=== PATIENT | male | born 1965 ===

== ENCOUNTER 2020-09-21 13:53 | Outpatient (REF) | payer OTHER, SELFPAY ==
--- NOTE | ~2020-09-21 | XR_ITS ---
EXAMINATION: BILATERAL KNEE X-RAY CLINICAL INFORMATION: Pain COMPARISON: None TECHNIQUE: Standing AP view of both knees and lateral and sunrise view of the left knee FINDINGS: Left: Bone alignment is normal. No fracture or dislocation is seen. The joint spaces are normal. There is no joint effusion. Standing AP view of the right knee demonstrates medial femoral tibial joint space narrowing and mild varus angulation. XR/XR knee standing BI IMPRESSION: Normal left knee. Medial femoral tibial joint space narrowing and mild varus angulation of the right knee.
--- NOTE | ~2020-09-21 | XR_ITS ---
EXAMINATION: BILATERAL KNEE X-RAY CLINICAL INFORMATION: Pain COMPARISON: None TECHNIQUE: Standing AP view of both knees and lateral and sunrise view of the left knee FINDINGS: Left: Bone alignment is normal. No fracture or dislocation is seen. The joint spaces are normal. There is no joint effusion. Standing AP view of the right knee demonstrates medial femoral tibial joint space narrowing and mild varus angulation. XR/XR knee LT 2V IMPRESSION: Normal left knee. Medial femoral tibial joint space narrowing and mild varus angulation of the right knee.
== END 2020-09-21 13:54 | disposition home or self-care (01) ==
LOC: HO.HOSX 13:53
PROVIDERS: PCP Internal Medicine; Visit Provider Orthopaedic Surgery
DX: M23.92 Unspecified internal derangement of left knee (principal); M25.562 Pain in left knee
CPT/HCPCS: 73560; 73565

== ENCOUNTER 2020-09-24 17:51 | Outpatient (REF) | payer OTHER, SELFPAY ==
--- NOTE | ~2020-09-24 | MR_ITS ---
EXAMINATION: MR KNEE WITHOUT CONTRAST, LEFT CLINICAL INFORMATION: Unspecified internal derangement of left knee. COMPARISON: Radiographs dated 09/21/2020. TECHNIQUE: MRI of the knee without contrast was performed using routine sequences on a high-field scanner. FINDINGS: MENISCI: Medial Meniscus: A horizontal tear is present at the posterior horn and body, contacting the meniscal undersurface near the free edge margin. As seen on image / of series 5, there is a flap of meniscal tissue at the undersurface of the meniscal body which is displaced into the meniscotibial recess. This measures approximately 1.7 cm AP and 0.6 cm longitudinal. There is an overlying multilocular parameniscal cyst measuring 2.8 x 0.6 x 1.4 cm. Surrounding soft tissues are edematous. A small multilocular parameniscal cyst is also present along the posterior capsular margin. Lateral Meniscus: Intact. LIGAMENTS: Cruciate: Intact. Collateral: Intact. EXTENSOR MECHANISM: Intact. ARTICULAR CARTILAGE/BONE: Patellofemoral Compartment: At the lateral trochlear facet, there is a chronic osteochondral injury measuring 1.4 x 1.8 cm in area, characterized by partial-thickness articular cartilage loss, full-thickness chondral fissuring, and underlying articular cortical remodeling with slight articular cortical depression. No large chondral defects are identified. Patellar cartilage appears relatively well preserved. Medial Compartment: Mild partial-thickness chondral thinning is present at the medial tibial plateau. Small marginal osteophytes. Lateral Compartment: Focal partial-thickness cartilage loss is present at the posterior third of the lateral tibial plateau with full-thickness chondral fissuring. JOINT FLUID AND BURSAE: Trace joint effusion. No Mcconnell's cyst. MR/MR knee LT wo con IMPRESSION: 1. A horizontal tear of the posterior horn and body of the medial meniscus extends to the meniscal undersurface. There is partial extrusion of the meniscal body with a displaced undersurface flap fragment and surrounding parameniscal cysts. 2. Mild tricompartmental osteoarthritis. Focal chronic osteochondral injury at the lateral trochlear facet. 3. Trace joint effusion.
== END 2020-09-24 17:52 | disposition home or self-care (01) ==
LOC: HO.MRI 17:51
PROVIDERS: Visit Provider Orthopaedic Surgery
DX: M23.92 Unspecified internal derangement of left knee (principal)
CPT/HCPCS: 73721

== ENCOUNTER → 2020-10-01 12:15 | Outpatient (BNVA) | payer OTHER, SELFPAY | PROVIDERS: PCP Internal Medicine; Visit Provider Orthopaedic Surgery ==

== ENCOUNTER 2020-10-07 06:10 | Day surgery (SDC) | payer OTHER, SELFPAY ==
--- NOTE | 2020-10-06 10:49 | HO.ANESPROP2 ---
Documented by User: Shalonda Mclaughlin 10/06/20 10:53 HPI - Anesthesia Eval Consult details Narrative: 54yo M for Left Knee Arthroscopy PMFSH Active Problems Active Problems: All Active Problems (Updated 09/21/20 @ 14:53 by Constantine Fritz MD) Internal derangement of left knee (Acute) Past Medical History Medical History Anxiety and depression Diabetes HLD (hyperlipidemia) HTN (hypertension) Internal derangement of left knee Social History Social History Use of substances other than those prescribed or required for medical reasons: No Have you been hit, kicked, punched, or otherwise hurt by someone within the past year? 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 Allergies Allergy/AdvReac Type Severity Reaction Status Date / Time No Known Allergies Allergy Unverified 02/13/20 15:44 [No Known Allergies*] seasonal Allergy Unknown Uncoded 07/25/17 00:00 Home Medications Medication Instructions Recorded Confirmed Last Taken Type Novolog U-100 Insulin aspart 10/07/20 Unknown History Trulicity 10/07/20 Unknown History aspirin 10/07/20 10/02/20 History atorvastatin 10/07/20 Unknown History lisinopril 10/07/20 Unknown History metformin 10/07/20 10/06/20 History sertraline 10/07/20 Unknown History Exam Exam Date and Time: October 06, 2020 1049 Narrative Narrative: w/u for CP 2018: EKG, ECHO, and CTA normal Assessment and Plan Assessment Anesthesia Assessment: Chart Reviewed Documented by User: Francisco Javier Valverde 10/07/20 07:23 PMFSH Past Medical History Medical History Anxiety and depression Diabetes HLD (hyperlipidemia) HTN (hypertension) Internal derangement of left knee Social History Social History Use of substances other than those prescribed or required for medical reasons: No Have you been hit, kicked, punched, or otherwise hurt by someone within the past year? 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
[2020-10-07] VITALS (7 sets, daily range): BP systolic 131–169; BP diastolic 80–95; PULSE 78–90; RESP 12–20; TEMP 36.2–36.6; O2SAT 93–99; BMI 30.8
[2020-10-07 06:22] LABS: Glucose, Whole Blood 177 mg/dL (60-115)
[2020-10-07] MEDS: Lactated Ringers 1,000 ML 100 ML IVCONT (06:35)
--- NOTE | 2020-10-07 06:43 | PC.NURSE ---
cough noted ls clear. pts sts allergies no temp denies any covid s/sx pwd vss
--- NOTE | 2020-10-07 08:44 | P.BOP_ITS ---
Brief Operative Note Date of Service: 10/07/20 Pre-op diagnosis: left knee medial meniscus tear Post-op diagnosis: same Procedure: left knee partial medial meniscectomy Implants: none Surgeon: Constantine Fritz MD Anesthesia: GETA and local Was an Industrial Fabric Cutter used for this Procedure?: No Estimated blood loss (mL): 2 Tourniquet time (min): 25 Pathology: none sent Condition: stable Disposition: PACU
--- NOTE | 2020-10-07 08:49 | P.OP_ITS ---
Operative Note Operative Note Date of Service: 10/07/20 Narrative: Pre-op diagnosis: left knee medial meniscus tear Post-op diagnosis: same Procedure: left knee partial medial meniscectomy Implants: none Surgeon: Constantine Fritz MD Anesthesia: GETA and local Was an Day Care Aide used for this Procedure?: No Estimated blood loss (mL): 2 Tourniquet time (min): 25 Pathology: none sent Condition: stable Disposition: PACU Procedure in detail: Patient was brought to the operating room placed supine on the arthroscopic table and prepped and draped in standard sterile fashion. A time-out was called to identify proper site proper procedure proper surgeon and IV antibiotics per weight were administered. I began by exsanguinating the limb and insufflating tourniquet to 300 mm Hg. Then made a standard anterolateral stab incision. The knee was insufflated with water and 30 degree arthroscope was placed. There was grade 2 changes of the central patellar facet of the patella but overall suprapatellar pouch was clean and the gutters were clean. I descended into the medial compartment where I made my medial portal under direct visualization. There was obvious of complex tear of the body and posterior horn of the medial meniscus. Root was intact and there were grade 1 changes scattered throughout the medial compartment. I used a combination of biter shaver and cautery to remove unstable portions of the meniscus. Approximately 40% of the meniscal volume was removed. Once I was satisfied with this , the ACL was examined and found to be intact and the lateral compartment was clean. I then removed all instrumentation and closed the portals with skin glue. 25 mL of 2% Marcaine with epinephrine was injected into the joint and the surrounding soft tissues. Patient was then placed in sterile dressing extubated brought recovery room stable condition. There were no known complications.
[2020-10-07] MEDS: HYDROcodone Bit/Acetam 5/325 TABLET 1 TAB PO (09:48)
== END 2020-10-07 10:13 | disposition home or self-care (01) ==
PROVIDERS: Visit Provider Orthopaedic Surgery
PROC: (CPT 29870; principal; 2020-10-07 07:30)
DX: S83.232A Complex tear of medial meniscus, current injury, left knee, initial encounter (principal); X58.XXXA Exposure to other specified factors, initial encounter; Y93.9 Activity, unspecified; Y92.9 Unspecified place or not applicable; Y99.8 Other external cause status; M17.12 Unilateral primary osteoarthritis, left knee
CPT/HCPCS: 29881; 82947; J0171; J0690; J1100; J2250; J2405; J3010

== ENCOUNTER → 2020-10-14 13:11 | Outpatient (BNVA) | payer OTHER, SELFPAY | PROVIDERS: Visit Provider Physician Assistant ==

== ENCOUNTER → 2020-10-19 13:45 | Outpatient (BNVA) | payer OTHER, SELFPAY | PROVIDERS: Visit Provider Orthopaedic Surgery | DX: S83.242D Other tear of medial meniscus, current injury, left knee, subsequent encounter (principal); M17.11 Unilateral primary osteoarthritis, right knee | CPT/HCPCS: 20610; J1100 ==

== ENCOUNTER → 2021-02-05 09:38 | Outpatient (BNVA) | payer OTHER, SELFPAY | PROVIDERS: Visit Provider Orthopaedic Surgery | DX: M17.11 Unilateral primary osteoarthritis, right knee (principal) | CPT/HCPCS: 20610; J1100 ==

== ENCOUNTER 2022-03-26 13:24 | Emergency (ER) | payer OTHER, SELFPAY ==
[2022-03-26 13:27] VITALS: BP 171/85; PULSE 87; RESP 18; TEMP 36.7; O2SAT 99; BMI 29.6
--- NOTE | 2022-03-26 14:07 | ED.GENADULT ---
HPI - General Adult General Chief complaint: Wound/Laceration Stated complaint: L THUMB LACERATION Time Seen by Provider: 03/26/22 14:07 Source: patient Mode of arrival: ambulatory Limitations: no limitations History of Present Illness HPI narrative: Patient is a 56 year old assigned male at with a history of type 2 diabetes presenting to the emergency department today with a left thumb laceration. Patient states that he was using a table saw when he cut his left thumb. Patient denies any numbness, tingling, dizziness, lightheadedness, abdominal pain, nausea, vomiting, fever, chills, blurry vision, double vision, loss of vision, chest pain, difficulty breathing, shortness of breath, back pain, night sweats, pain with urination, increased urinary frequency, increased urinary urgency, blood in his urine or stool, syncope or a near syncopal episode, bowel incontinence, bladder incontinence, bowel retention, bladder retention, or any other complaints at this time. Onset (ago): minute(s) Location: left (thumb) Radiation: non-radiation Severity: mild Severity scale (1-10): 3 Quality: dull Pain Consistency: constant Relieving factors: none Exacerbating factors: none Associated symptoms: denies other symptoms Treatments prior to arrival: none Related Data Home Medications Medication Instructions Recorded Confirmed Novolog U-100 Insulin aspart 10/07/20 Trulicity 10/07/20 aspirin 10/07/20 atorvastatin 10/07/20 lisinopril 10/07/20 metformin 10/07/20 sertraline 10/07/20 Previous Rx's Medication Instructions Recorded hydrocodone 5 mg-acetaminophen 325 1 tab PO Q8H PRN pain (scale score 10/07/20 mg tablet 4-6) 7 days #20 tabs celecoxib 200 mg capsule (Celebrex) 200 mg PO BID 30 days #60 caps 10/14/20 silver sulfadiazine 1 % topical 1 appl topical BID PRN wound 10/14/20 cream (Silvadene) healing #20 grams cephalexin 500 mg capsule 500 mg PO Q6H 7 days #28 caps 03/26/22 Allergies Allergy/AdvReac Type Severity Reaction Status Date / Time seasonal Allergy Unknown watery eyes Uncoded 10/19/20 13:56 Review of Systems Constitutional: Constitutional: Reports no additional constitutional complaints, Denies chills, Denies fever(s) and Denies night sweats Eyes: Eyes: Reports no additional eye complaints, Denies blurry vision, Denies change in vision, Denies diplopia, Denies eye discharge, Denies loss of vision and Denies eye pain ENT: Denies dizziness Cardiovascular: Cardiovascular: Reports no additional cardiovascular complaints, Denies chest pain, Denies lightheadedness, Denies Loss of Consciousness and Denies dyspnea Respiratory: Respiratory: Reports no additional respiratory complaints and Denies dyspnea Gastrointestinal: Gastrointestinal: Reports no additional gastrointestinal complaints, Denies abdominal pain, Denies melena, Denies hematochezia, Denies change in bowel habits and Denies change in stool character Genitourinary: Genitourinary: Reports no additional male genitourinary complaints, Denies hematuria, Denies oliguria, Denies difficulty urinating, Denies dysuria, Denies urinary frequency, Denies urinary hesitancy, Denies urinary incontinence and Denies urinary urgency Musculoskeletal: Musculoskeletal: Reports no additional musculoskeletal complaints, Denies numbness and Denies tingling Comments: left thumb injury Neurologic: Denies dizziness, Denies loss of vision, Denies numbness and Denies tingling Psychiatric: Psychiatric: Reports no additional psychiatric complaints Endocrine: Endocrine: Reports no additional endocrine complaints Hematologic/Lymphatic: Hematologic/Lymphatic: Reports no additional hematologic/lymphatic complaints Allergic/Immunologic: Allergic/Immunologic: Reports no additional allergic/immunologic complaints PMFSH Past Medical History Attestation statement: The following information was validated with the patient. 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 Physical Exam ED Vital Signs: Vital Signs - 24 hr 03/26/22 13:27 Temperature 98.1 F Pulse Rate 87 Respiratory Rate 18 Blood Pressure 171/85 H Pulse Oximetry 99 Oxygen Delivery Method Room Air BMI result Body Mass Index 29.6 Const General: cooperative, no acute distress, alert and awake Nutritional Appearance: well nourished Orientation/consciousness: patient oriented x3 Limitations: no limitations HENMT Head: Yes normal to inspection and Yes atraumatic Ears: hearing grossly normal bilaterally and external ears normal General nose exam: Normal external nose present, no nasal discharge noted and no epistaxis Face and sinus: Yes normal facial exam, No abrasion and No laceration Mouth: Normal oral and palatal mucosa present, no drooling and no muffled voice Eyes General: appearance normal, both eyes and all related structures Periorbital: periorbital findings normal Eyelids: Yes eyelids normal Conjunctivae: conjunctivae normal Pupils: Equal, round and reactive pupils present EOM: EOMs intact bilaterally Neck Neck: Yes normal visual inspection, Yes full ROM and Yes no lymphadenopathy Chest Chest palpation & inspection: normal inspection of the chest Resp Effort & Inspection: normal respiratory effort and able to speak in complete sentences Auscultation: clear to auscultation bilaterally Cardio Rate: regular rate Rhythm: regular rhythm GI Inspection: Yes normal to inspection Skin Other: 3cm irregular laceration to the palmar aspect of the left thumb, no active bleeding Neuro General: patient oriented x3 and moves all extremities Cranial nerves: Yes Equal, round and reactive pupils present Cognition (Neuro): normal cognition Motor exam (neuro): 5/5 motor strength present throughout Sensory Exam: Normal double simultaneous stimulation for sensation Coordination: [id number] test normal Extrem General: Yes full ROM and Yes capillary refill normal Psych Appearance: grossly normal Mental Status: mental status grossly normal Affect: normal affect Attitude: cooperative Thought process: Normal thought process present Thought content: Normal thought content present Insight: Good insight present (Psych) Procedures Laceration Laceration 1: Site: other (thumb) Side (If applicable): left Size (cm): 3 Description: flap and irregular Depth: simple, single layer Local Anesthetic: lidocaine 1% Amount of anesthesia used (mL): 2 Pre-repair: wound explored, irrigated extensively and deep structures intact Skin layer closed with: other (prolene) Size (cm): 5-0 Number of sutures: 3 Technique: simple, interrupted Medical Decision Making [facility] Narrative Medical decision making narrative: Patient is a 56 year old assigned male at with a history of type 2 diabetes presenting to the emergency department today with a left thumb laceration. Patient's physical exam showed a 3cm irregular / flap like laceration to the left palmar thumb, no active bleeding. I explained my physical exam findings to the patient . I answered all questions asked by the patient. Patient's left thumb was repaired, per procedure note, without incident. I stressed the importance of the patient taking his medication as prescribed. I stressed the importance of the patient following up with his primary care provider. I stressed the importance of not getting the affected area wet for 7 days, not soaking the affected area, performing daily wound checks and daily dressing changes, and having his sutures removed in 10-14 days. I stressed the importance of the patient returning to the emergency department immediately if his symptoms were to worsen or if he were to develop any dizziness, shortness of breath, difficulty breathing, chest pain, blurry vision, loss of vision, nausea, vomiting, abdominal pain, fever, chills, back pain, or any other complaints. Patient verbalized agreement and understanding with this treatment plan and discharge. Medical Records Medical records reviewed: Yes I reviewed the patient's medical records. Discharge Plan Discharge Clinical Impression: Laceration Patient Disposition: Home, Self-Care Instructions: Laceration (ED) Additional Instructions: Do NOT get the affected area wet for at LEAST 7 days. Do NOT soak the sutured area. Have your sutures removed in 10-14 days. Perform daily wound checks. Follow up with your primary care provider. Return to the emergency department immediately if your symptoms worsen or if you develop any dizziness, shortness of breath, difficulty breathing, chest pain, blurry vision, loss of vision, nausea, vomiting, abdominal pain, fever, chills, back pain, or any other complaints. Prescriptions: New cephalexin 500 mg capsule 500 mg PO Q6H 7 Days Qty: 28 0RF No Action aspirin atorvastatin lisinopril metformin sertraline Novolog U-100 Insulin aspart Trulicity hydrocodone-acetaminophen 5-325 mg tablet 1 tab PO Q8H PRN (Reason: pain (scale score 4-6)) 7 Days Qty: 20 0RF celecoxib [Celebrex] 200 mg capsule 200 mg PO BID 30 Days Qty: 60 3RF silver sulfadiazine [Silvadene] 1 % cream 1 appl topical BID PRN (Reason: wound healing) Qty: 20 1RF Rx Instructions: apply a 1.5 mm thickness Referrals: [facility] [place] Family Medicine [Provider Group] (Call to establish and follow up with a primary care provider. If you already have a primary care provider, please follow up with them. ) [facility] [Provider Group] (Call to establish and follow up with a primary care provider. If you already have a primary care provider, please follow up with them. ) [facility] [Provider Group] (Call to establish and follow up with a primary care provider. If you already have a primary care provider, please follow up with them. ) Interventions: ED Discharge Assessment Last Done: 03/26/22 14:57 Discharge Date/Time: 03/26/22 14:57 Print Language: Swazi
--- NOTE | 2022-03-26 14:16 | PC.NURSE ---
Provider instructed to override Lidocaine. Administered by provider.
== END 2022-03-26 14:57 | disposition home or self-care (01) ==
PROVIDERS: Emergency Provider Emergency Medicine
DX: S61.012A Laceration without foreign body of left thumb without damage to nail, initial encounter (principal); W29.8XXA Contact with other powered hand tools and household machinery, initial encounter; Y93.9 Activity, unspecified; Y92.9 Unspecified place or not applicable; Y99.9 Unspecified external cause status
CPT/HCPCS: 12002; 99282; 99284

== ENCOUNTER 2023-08-28 08:41 | Outpatient (AMB) | payer OTHER, SELFPAY ==
--- NOTE | 2023-08-28 08:47 | A.OFFVIS_ITS ---
Intake Vital Signs 08/28/23 09:06 Height 6 ft 3 in Weight 205 lb BMI 25.6 Intake Visit Reasons: O/V bilatel knee O.A s/p rt knee inj 02/05/21 Intake Note: Jeff is a 53 year old male who presents today for a follow up of his bilateral knee OA. He was last seen on 02/05/21 where his right knee was injected. He states that his last injection gave him no relief. He would like to discuss other possible treatments today including a brace. He has had no previous treatment for his left knee, right knee is worse than left knee. Allergies seasonal Allergy (Unknown, Uncoded 07/28/22 09:44) watery eyes HPI O/V bilatel knee O.A s/p rt knee inj 02/05/21 HPI Details Jeff is a 53 year old male who presents today for a follow up of his bilateral knee OA. He was last seen on 02/05/21 where his right knee was injected. He states that his last injection gave him no relief. He would like to discuss other possible treatments today including a brace. He has had no previous treatment for his left knee, right knee is worse than left knee. He is very active in the summer as he goes camping with his and they have a camper and travel over the country and he is opposed to any surgical and vent intervention until next fall. He has had a knee brace in the past which was helpful but so what he currently has is not helpful. Most of his pain is on the inside of the right knee. It bothers him when he walks his dog and when he gets into and out of his truck. 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 Moderate to severe medial compartment osteoarthritis right knee Mild osteoarthritis left knee Assessment & Plan Assessment & Plan (1) Arthritis of right knee: Code(s): M17.11 - Unilateral primary osteoarthritis, right knee Plan: Osteoarthritis of the right knee. We discussed treatment options. He is tried steroid injections in the past without benefit. I think the next appropriate step would be viscosupplementation. He is diabetic as well and wants to stay away from cortisone. (2) Varus deformity of knee: Code(s): M21.169 - Varus deformity, not elsewhere classified, unspecified knee Plan: Varus deformity right knee. I ordered an unloading brace for his right knee. We will see if this is helpful and he will follow-up after he has had this for approximately a month. Orders: Orders XR knee standing BI Today M25.569 - Pain in unspecified knee Coding Level of Care Code Est Pt Level 4 (63412) Diagnoses Arthritis of right knee M17.11 Varus deformity of knee M21.169
[2023-08-28 09:06] VITALS: BMI 25.6
== END 2023-08-28 09:51 | disposition home or self-care (01) ==
PROVIDERS: Visit Provider Orthopaedic Surgery
DX: M17.0 Bilateral primary osteoarthritis of knee (principal); M21.161 Varus deformity, not elsewhere classified, right knee
CPT/HCPCS: 99214

== ENCOUNTER 2023-08-28 11:08 | Outpatient (REF) | payer OTHER, SELFPAY ==
--- NOTE | ~2023-08-28 | XR_ITS ---
EXAMINATION: XR KNEE, RIGHT CLINICAL INFORMATION: Right knee pain COMPARISON: Right knee x-ray on 09/21/2020 TECHNIQUE: Standing frontal x-ray of bilateral knees, lateral and sunrise view x-rays of the right knee. FINDINGS: BONES: Bony structures are intact. There is no focal bone destruction or periosteal reaction seen. JOINTS: Alignment of joints is normal. There is complete loss of medial compartment right knee joint space. SOFT TISSUE: Soft tissue is unremarkable. No radiopaque foreign body or abnormal air collection is seen. XR/XR knee RT 3V IMPRESSION: 1. No acute fracture or dislocation is seen in the right knee. 2. Unchanged Severe degenerative changes in the medial compartment of the right knee.
--- NOTE | ~2023-08-28 | XR_ITS ---
EXAMINATION: XR KNEE, LEFT CLINICAL INFORMATION: Left knee pain COMPARISON: Left knee x-ray on 09/21/2020 TECHNIQUE: Standing frontal x-ray of bilateral knees, lateral and sunrise view x-rays of the left knee. FINDINGS: BONES: Bony structures are intact. There is no focal bone destruction or periosteal reaction seen. JOINTS: Alignment of joints is normal. There is marked decrease in medial compartment left knee joint space. SOFT TISSUE: Left suprapatellar fat pad shows increase in density. No radiopaque foreign body or abnormal air collection is seen. XR/XR knee LT 3V IMPRESSION: 1. Interval progression of Advanced medial compartment left tibiofemoral joint osteoarthritis. 2. Interval development of left knee effusion. 3. No fracture or dislocation or signs of osteomyelitis are found.
== END 2023-08-28 11:09 | disposition home or self-care (01) ==
LOC: HO.HOSX 11:08
PROVIDERS: Visit Provider Orthopaedic Surgery
DX: M17.11 Unilateral primary osteoarthritis, right knee (principal); M25.562 Pain in left knee
CPT/HCPCS: 73562; 99212

== ENCOUNTER 2023-09-23 14:55 | Emergency (ER) | payer OTHER, SELFPAY ==
--- NOTE | ~2023-09-23 | XR_ITS ---
EXAMINATION: XR HAND, LEFT CLINICAL INFORMATION: Pain. Injury. COMPARISON: None available. TECHNIQUE: PA, lateral, and oblique views of the left hand. FINDINGS: Soft tissue defects and swelling along the ulnar aspect of the 2nd and 3rd distal phalanges, consistent with lacerations. No radiopaque foreign body or abnormal soft tissue calcification. There are defects within the adjacent ulnar aspect of the distal 2nd and 3rd phalangeal nahun measuring up to 0.3 and 0.3 cm, consistent with fractures. No dislocation. Mild joint space narrowing with small marginal osteophytes at the 1st carpometacarpal and metacarpophalangeal joints. No concerning lytic or blastic osseous lesion. XR/XR hand LT min 3V IMPRESSION: 1. Soft tissue lacerations along the ulnar aspect of the 2nd and 3rd distal phalanges. No radiopaque foreign body or abnormal soft tissue calcification. 2. Associated fractures within the adjacent ulnar aspect of the distal 2nd and 3rd phalangeal nahun.
[2023-09-23 15:24] VITALS: BP 123/84; PULSE 91; RESP 16; TEMP 36.7; O2SAT 95; BMI 25.6
--- NOTE | 2023-09-23 15:36 | ED_ITS ---
HPI - General Adult General Chief complaint: Wound/Laceration Stated complaint: l index and mid finger laceration saw Time Seen by Provider: 09/23/23 16:19 Source: patient Mode of arrival: ambulatory Limitations: no limitations History of Present Illness HPI narrative: Patient is a 57-year-old male right Hand dominant who presents emergency department for evaluation of lacerations to the distal tip of the left 2nd and 3rd digit, accidental in nature from a table saw. Bleeding controlled prior to arrival. Reports that he is up-to-date on his last tetanus vaccination within the past 5 years. Denies any numbness tingling or cold sensation to the hands. Is able to flex and extend the digits. Related Data Home Medications ?Medication ?Instructions ?Recorded ?Confirmed aspirin 81 mg tablet,delayed 81 mg PO DAILY 05/28/22 07/28/22 release (Adult Low Dose Aspirin) atorvastatin 80 mg tablet 80 mg PO DAILY 05/28/22 07/28/22 empagliflozin 10 mg tablet 10 mg PO DAILY 05/28/22 07/28/22 hydrochlorothiazide 12.5 mg tablet 12.5 mg PO DAILY 05/28/22 07/28/22 lisinopril 5 mg tablet 5 mg PO DAILY 05/28/22 07/28/22 semaglutide 1 mg/dose (2 mg/1.5 1 mg subcut QWEEK 05/28/22 07/28/22 mL) subcutaneous pen injector bupropion HCl 150 mg 24 hr tablet, 150 mg PO QAM 08/28/23 extended release loratadine 10 mg tablet (Allergy 10 mg PO DAILY 08/28/23 Relief (loratadine)) metformin 500 mg tablet 1,000 mg PO DAILY 08/28/23 Previous Rx's ?Medication ?Instructions ?Recorded Medial unloading brace, right #1 ea 09/05/23 amoxicillin 875 mg-potassium 1 tab PO BID #14 tabs 09/23/23 clavulanate 125 mg tablet Allergies Allergy/AdvReac Type Severity Reaction Status Date / Time No Known Allergies Allergy Verified 09/23/23 15:28 Review of Systems 2 Review of Systems: Yes all other systems are reviewed and are negative PMFSH Past Medical History Attestation statement: The following information was validated with the patient. 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 No acute distress.?Normal affect. Neck: Normal inspection.? Neck supple.?? CVS: Heart sounds normal. Normal heart rate and rhythm.? Pulses normal.?? Respiratory: No respiratory distress.? Lung sounds clear to auscultation bilaterally?? Skin: Skin warm and dry.? Normal skin color.? .?? Extremities: full range of motion to digits of the left hand Neuro: Moves all extremities spontaneously. Sensation intact bilaterally. Ambulates with normal steady gait. Course Course Course Narrative: RME performed by Angie Waddell PA-C. Patient is a 57 year old assigned male at presenting to the emergency department with a left 2nd and 3rd finger table saw injury. Detailed physical exam and review of systems are deferred to the child care lead teacher. Imaging ordered. Patient placed back in the waiting room pending room availability and results. 182 --> I repaired the patient's 2nd and 3rd left digit lacerations. 2 sutures were placed in the 2nd digit laceration and 1 in the right 3rd digit laceration. Patient tolerated the procedure well. Patient's PMS was intact prior to and after laceration repairs. I splinted the patient's right 2nd and 3rd digits, without incident. Patient's PMS was intact prior to and after splint placement. Medications Administered Discontinued Medications Generic Name Dose Route Start Last Admin Trade Name Freq PRN Reason Stop Dose Admin Cefazolin Sodium/Dextrose 2 gm in 50 mls @ 100 mls/hr 09/23/23 17:02 09/23/23 18:08 Ancef IV 09/23/23 17:31 Infused ONCE ONE Infusion Lidocaine HCl 10 ml 09/23/23 17:17 09/23/23 17:40 Lidocaine Hcl 1 % 10 Ml Vial SUBCUT 09/23/23 17:18 10 ml ONCE ONE Administration Procedures Laceration Laceration 1: Site: other (2nd digit) Side (If applicable): left Description: irregular Depth: simple, single layer Local Anesthetic: lidocaine 1% Amount of anesthesia used (mL): 5 Pre-repair: wound explored, irrigated extensively, deep structures intact and wound margins revised Skin layer closed with: other (prolene) Size (cm): 6-0 Number of sutures: 2 Technique: simple, interrupted Laceration 2: Site: other (3rd digit) Side (If applicable): right Description: irregular Depth: simple, single layer Local Anesthetic: lidocaine 1% Amount of anesthesia used (mL): 5 Pre-repair: wound explored, irrigated extensively, deep structures intact and wound margins revised Skin layer closed with: other (proelene) Size (cm): 5-0 Number of sutures: 1 Technique: simple, interrupted Nerve Block Nerve Block 1: Time out performed: Yes Local Anesthetic: lidocaine 1% Amount of anesthesia used (mL): 5 Side: left Nerve Blocks: digital (2nd digit) Procedure Successful: Yes Patient Tolerated Procedure: well Complications: none Nerve Block 2: Time out performed: Yes Local Anesthetic: lidocaine 1% Amount of anesthesia used (mL): 5 Side: left Nerve Blocks: digital (3rd digit) Orthopedic Splinting/Casting Injury #1: Side: right Upper Extremity Injury Location: finger (2nd) Upper Extremity Immobilizer: finger (other) and facundo tape Injury #2: Side: left Upper Extremity Injury Location: finger (3rd) Upper Extremity Immobilizer: finger (other) and facundo tape Medical Decision Making Medical Decision Making MDM Narrative: patient is a 57-year-old male past medical history of hypertension, hyperlipidemia, diabetes presenting to emergency department for evaluation of lacerations to the distal tip of the left 2nd and 3rd digit as per HPI and physical exam portion of this note. XR imaging was obtained to evaluate fracture/dislocation, there is a fracture along the ulnar aspect of the distal tuft of the 2nd and 3rd digit. The wounds were irrigated extensively, repair with sutures to areas most amenable as per procedural portion of this note, received cefazolin 2 g IV while in the emergency department. Clean dry dressings were placed with finger splint to both digits. Discharged home with course of Augmentin and strict monitoring precautions for signs of infection with outpatient follow-up with orthopedics. Differential Diagnosis Differential Diagnoses: The differential diagnosis associated with the presentation includes ( See narrative above) Admission/Observation Consideration of admission/observation: Escalation of care including admission/observation considered ( see narrative above) Consult Healthcare Provider Management of the patient was discussed with: Building Inspector ( orthopedics) Mendoza DOMINIQUE - who agrees with the above-mentioned plan of care Independent Interpretation I performed an independent interpretation of an: Plain X-Ray ( fracture to the distal tuft of the 2nd and 3rd phalanges) Radiology Impression Discussion of test interpretation with radiology: I have reviewed the radiologist's reading. Radiologist Impression: XR/XR hand LT min 3V IMPRESSION: 1. Soft tissue lacerations along the ulnar aspect of the 2nd and 3rd distal phalanges. No radiopaque foreign body or abnormal soft tissue calcification. 2. Associated fractures within the adjacent ulnar aspect of the distal 2nd and 3rd phalangeal nahun. Independent Historian Clinical information obtained from an independent historian. History obtained from or confirmed by: Spouse ( present who confirms history) Prescription Management I considered prescription management with: Pain Medication Chronic Conditions Patient?s care impacted by: Diabetes Discharge Plan Discharge Clinical Impression: Finger laceration, Open fracture of tuft of distal phalanx of finger Patient Disposition: Home, Self-Care Instructions: Laceration (ED), Finger Fracture (ED) Additional Instructions: stitches will need to be removed in 10-14 days or sooner as instructed by orthopedic provider. Contact orthopedic office Monday morning to arrange for a follow-up visit. They have already been made aware of your visit here today. You received a dose of IV antibiotics while in the emergency department today; cefazolin 2 g. You will be discharged home with a prescription for Augmentin, please take this as instructed, do not skip any doses or stop taking early. Begin taking this tomorrow. Return back to emergency department as needed for any new or worsening symptoms or concerns. If you develop fevers, chills, redness, swelling, severe worsening pain to the fingers, pus-like drainage, numbness, tingling then please have this re-evaluated. Prescriptions: New amoxicillin-pot clavulanate 875-125 mg tablet 1 tab PO BID Qty: 14 0RF No Action (DME) Medial unloading brace, right See Rx Instructions .Route .MEDSUPPLY Qty: 1 0RF Rx Instructions: As directed semaglutide 1 mg/dose (2 mg/1.5 mL) pen injector 1 mg subcut QWEEK hydrochlorothiazide 12.5 mg tablet 12.5 mg PO DAILY atorvastatin 80 mg tablet 80 mg PO DAILY lisinopril 5 mg tablet 5 mg PO DAILY aspirin [Adult Low Dose Aspirin] 81 mg tablet,delayed release (DR/EC) 81 mg PO DAILY empagliflozin 10 mg tablet 10 mg PO DAILY metformin 500 mg tablet 1,000 mg PO DAILY loratadine [Allergy Relief (loratadine)] 10 mg tablet 10 mg PO DAILY bupropion HCl 150 mg tablet extended release 24 hr 150 mg PO QAM Referrals: Sara Infante MD [Primary Care Provider] - Print Language: Brazilian
[2023-09-23] MEDS: ceFAZolin Sodium/Dextrose,Iso 2 GM/50 ML PIGGYBACK IV (17:30)
[2023-09-23] MEDS: Lidocaine HCl 1 % 10 ML VIAL SUBCUT (17:40)
[2023-09-23 18:38] VITALS: BP 134/95; PULSE 81; RESP 16; TEMP 36.7; O2SAT 96
== END 2023-09-23 18:42 | disposition home or self-care (01) ==
PROVIDERS: Emergency Provider Internal Medicine; PCP Internal Medicine
DX: S62.631B Displaced fracture of distal phalanx of left index finger, initial encounter for open fracture (principal); S62.633B Displaced fracture of distal phalanx of left middle finger, initial encounter for open fracture; I10 Essential (primary) hypertension; E11.9 Type 2 diabetes mellitus without complications; W29.8XXA Contact with other powered hand tools and household machinery, initial encounter; Y93.9 Activity, unspecified; Y92.9 Unspecified place or not applicable; Y99.9 Unspecified external cause status
CPT/HCPCS: 12041; 73130; 96365; 99283; 99284; J0690

== ENCOUNTER 2023-09-25 12:26 | Outpatient (AMB) | payer OTHER, SELFPAY ==
--- NOTE | 2023-09-25 12:31 | MHC.OFFVIS ---
Vital Signs 09/25/23 12:36 Height 6 ft 3 in Weight 205 lb BMI 25.6 Handedness Right Intake Visit Reasons: FC- wound check index and mid finger saw injury Intake Note: Jeff is a 57 year old right hand dominant male who presents today for a wound check for his left index and middle finger, DOI 09/23/23. Patient reports he had his finger close to the blade when he was cutting wood. Currently is having mild pain. Allergies No Known Allergies Allergy (Verified 09/25/23 12:34) HPI HPI FC- wound check index and mid finger saw injury: Details: 57-year-old right hand dominant male who presents in the office today for a wound check status post a laceration on the distal tip of the left 2nd and 3rd digits on the left hand caused by a table saw. Patient was seen in the ED on 09/23/2023 immediately after the injury. X-rays were obtained. Patient was prescribed Amoxicillin-pot clavulanate 875-125 mg PO BID for 7 days. While in the office today he reports he had his fingers too close to the blade when he was using a table saw to cut wood. He reports mild pain. He also reports that he did the same thing to his left thumb last year while using a table saw. 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 [facility] Medical History Anxiety and depression Diabetes HLD (hyperlipidemia) HTN (hypertension) Internal derangement of left knee Social History (Updated 09/25/23 @ 12:36 by Noam Ceballos) Alcohol intake: never Comment: medicated with Vicodin Patient Tobacco Use Status: Never used Tobacco Current occupational status: retired Current occupation: rt hand dominant Review of Systems Const All systems reviewed & are unremarkable except as noted in HPI and below Physical Exam Vital Signs: BMI result Body Mass Index 25.6 Const General: cooperative and no acute distress Orientation/consciousness: patient oriented x3 Resp Effort & Inspection: normal respiratory effort and able to speak in complete sentences Cardio Peripheral pulses: Peripheral pulses 2+ throughout Skin General skin exam: no rashes or lesions noted Neuro General: patient oriented x3 Extrem Other: Left hand: Laceration at the index and middle fingers. Skin is loosely covered with sutures on both digits. No surrounding erythema or drainage. No signs of infection. Able to perform flexion and extension at the DIP, PIP, and MCP. Sensation is reportedly intact. Please refer to ED note for photos of laceration before reapproximation. Office Procedures Fracture Care Fracture Billing Code: Fracture Billing Code Assessment & Plan Assessment & Plan (1) Laceration of left index finger: Code(s): S61.211A - Laceration without foreign body of left index finger without damage to nail, initial encounter Category: Medical Qualifiers: Damage to nail status: unspecified Encounter type: initial encounter Foreign body presence: unspecified Qualified Code(s): S61.211A - Laceration without foreign body of left index finger without damage to nail, initial encounter (2) Laceration of left middle finger: Code(s): S61.213A - Laceration without foreign body of left middle finger without damage to nail, initial encounter Category: Medical Qualifiers: Damage to nail status: unspecified Encounter type: initial encounter Foreign body presence: unspecified Qualified Code(s): S61.213A - Laceration without foreign body of left middle finger without damage to nail, initial encounter (3) Closed fracture of tuft of distal phalanx of left index finger: Code(s): S62.631A - Displaced fracture of distal phalanx of left index finger, initial encounter for closed fracture Category: Medical (4) Closed fracture of tuft of distal phalanx of left middle finger: Code(s): S62.633A - Displaced fracture of distal phalanx of left middle finger, initial encounter for closed fracture Category: Medical Plan Mr. Avila is a 57-year-old right hand dominant male who presents in the office today for a wound check status post a laceration on the distal tip of the left 2nd and 3rd digits on the left hand caused by a table saw. Patient was seen in the ED on 09/23/2023 immediately after the injury. X-rays were obtained. Patient was prescribed Amoxicillin-pot clavulanate 875-125 mg PO BID for 7 days. While in the office today he reports he had his fingers too close to the blade when he was cutting wood. He reports mild pain. 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 The case was discussed with Dr. Monroe prior to the patient's presentation to the office today. A conservative treatment plan was recommended at this time. I instructed him that he should keep the laceration sites clean, dry, and intact. 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 I did discuss with the patient that I strongly advise against this. He should continue the Augmentin for the full 7-day course prescribed. Laceration sites were dressed today with Xeroform, gauze, and metal fingertip splints on both the index and middle digits. No signs of infection. He was educated on signs of infection, which are as follows but not limited to erythema, edema, drainage, or warmth. If he is to experience any of these symptoms, he must contact the office immediately or present to the ED. Follow up will be in 1 week for a wound check, or sooner if needed. X-rays of the left hand, obtained on 09/23/2023, revealed: 1. Soft tissue lacerations along the ulnar aspect of the 2nd and 3rd distal phalanges. No radiopaque foreign body or abnormal soft tissue calcification. 2. Associated fractures within the adjacent ulnar aspect of the distal 2nd and 3rd phalangeal nahun. Patient Instructions: Scribed by Dot Borrero medical office receptionist assistant, for Reshma Crystal LILLIE on 09/25/2023 at 12:35 pm, EST. Coding Level of Care Code Est Pt Level 4 (01175) Diagnoses Laceration of left index finger, foreign body presence unspecified, nail damage status unspecified, initial encounter S61.211A Damage to nail status: unspecified Encounter type: initial encounter Foreign body presence: unspecified Laceration of left middle finger, foreign body presence unspecified, nail damage status unspecified, initial encounter S61.213A Damage to nail status: unspecified Encounter type: initial encounter Foreign body presence: unspecified Closed fracture of tuft of distal phalanx of left index finger S62.631A Closed fracture of tuft of distal phalanx of left middle finger S62.633A CPT Codes Fracture Care - Fracture Billing Code: Fracture Billing Code ([id number])
[2023-09-25 12:36] VITALS: BMI 25.6
== END 2023-09-25 13:24 | disposition home or self-care (01) ==
LOC: HO.HOS 12:26
PROVIDERS: PCP Internal Medicine; Visit Provider Physician Assistant
DX: S61.211A Laceration without foreign body of left index finger without damage to nail, initial encounter (principal); S61.213A Laceration without foreign body of left middle finger without damage to nail, initial encounter; S62.631A Displaced fracture of distal phalanx of left index finger, initial encounter for closed fracture; S62.633A Displaced fracture of distal phalanx of left middle finger, initial encounter for closed fracture
CPT/HCPCS: 99214

== ENCOUNTER → 2023-09-25 12:26 | Outpatient (BNVA) | payer OTHER, SELFPAY | PROVIDERS: PCP Internal Medicine; Visit Provider Physician Assistant | DX: S61.211D Laceration without foreign body of left index finger without damage to nail, subsequent encounter (principal); S61.213D Laceration without foreign body of left middle finger without damage to nail, subsequent encounter; S62.633D Displaced fracture of distal phalanx of left middle finger, subsequent encounter for fracture with routine healing; S62.631D Displaced fracture of distal phalanx of left index finger, subsequent encounter for fracture with routine healing; W27.0XXD Contact with workbench tool, subsequent encounter | CPT/HCPCS: 99212 ==

== ENCOUNTER 2023-10-03 08:25 | Outpatient (AMB) | payer OTHER, SELFPAY ==
[2023-10-03 08:33] VITALS: BMI 25.6
--- NOTE | 2023-10-03 08:33 | MHC.OFFVIS ---
Vital Signs 10/03/23 08:33 Height 6 ft 3 in Weight 205 lb BMI 25.6 Intake Visit Reasons: OV-fx of tuft, distal index phal. fx, DOI 09/23/23 Intake Note: Jeff is a 57 year old right hand dominant male who presents today for a wound check for his fracture of tuft, distal index phalanx fx, DOI 09/23/23. Patient reports no pain or concerns today. Antibiotics finished on Monday. Denies sx's or signs of infection like redness, warmth to touch, discharge, swelling, fever. 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 fx, DOI 09/23/23: Details: 57-year-old right hand dominant male who presents in the office today for a wound check and follow up of a laceration on the distal tip of the left 2nd and 3rd digits, along with 2nd and 3rd digits tuft fractures, on the left hand caused by a table saw. I last saw the patient in the office on 09/25/2023 when I instructed him that he should keep the laceration sites clean, dry, and intact. 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 I did discuss with the patient that I strongly advise against this. He instructed to continue the Augmentin for the full 7-day course prescribed. While in the office today the patient reports no pain or concerns today. Confirmed completion of his antibiotic on Monday09/30/2023. Denies any symptoms or signs of infection, like erythema, warmth, drainage, edema, or fever. [facility] Medical History Anxiety and depression Diabetes HLD (hyperlipidemia) HTN (hypertension) Internal derangement of left knee Social History (Updated 09/25/23 @ 12:36 by Noam Ceballos) Alcohol intake: never Comment: medicated with Vicodin Patient Tobacco Use Status: Never used Tobacco Current occupational status: retired Current occupation: rt hand dominant Review of Systems Const All systems reviewed & are unremarkable except as noted in HPI and below Physical Exam Vital Signs: BMI result Body Mass Index 25.6 Const General: cooperative, healthy appearing and no acute distress Orientation/consciousness: patient oriented x3 Resp Effort & Inspection: normal respiratory effort and able to speak in complete sentences Cardio Rate: regular rate Peripheral pulses: Peripheral pulses 2+ throughout GI Palpation (GI): Soft to palpation Skin General skin exam: no rashes or lesions noted Lesions: no lesions Rashes: no rashes Neuro General: patient oriented x3 Extrem Other: Left hand: Laceration sites on the at the tips of the index and middle fingers is c/d/i. No surrounding erythema or drainage. No signs of infection. Able to perform flexion and extension at the DIP, PIP, and MCP. Sensation is reportedly intact. Assessment & Plan Assessment & Plan (1) Laceration of left index finger: Code(s): S61.211A - Laceration without foreign body of left index finger without damage to nail, initial encounter Category: Medical Qualifiers: Damage to nail status: unspecified Encounter type: initial encounter Foreign body presence: unspecified Qualified Code(s): S61.211A - Laceration without foreign body of left index finger without damage to nail, initial encounter (2) Laceration of left middle finger: Code(s): S61.213A - Laceration without foreign body of left middle finger without damage to nail, initial encounter Category: Medical Qualifiers: Damage to nail status: unspecified Encounter type: initial encounter Foreign body presence: unspecified Qualified Code(s): S61.213A - Laceration without foreign body of left middle finger without damage to nail, initial encounter (3) Closed fracture of tuft of distal phalanx of left index finger: Code(s): S62.631A - Displaced fracture of distal phalanx of left index finger, initial encounter for closed fracture Category: Medical (4) Closed fracture of tuft of distal phalanx of left middle finger: Code(s): S62.633A - Displaced fracture of distal phalanx of left middle finger, initial encounter for closed fracture Category: Medical Plan Mr. Avila is a 57-year-old right hand dominant male who presents in the office today for a wound check and follow up of a laceration on the distal tip of the left 2nd and 3rd digits, along with 2nd and 3rd digits tuft fractures, on the left hand caused by a table saw. I last saw the patient in the office on 09/25/2023 when I instructed him that he should keep the laceration sites clean, dry, and intact. 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 I did discuss with the patient that I strongly advise against this. He instructed to continue the Augmentin for the full 7-day course prescribed. While in the office today the patient reports no pain or concerns today. Confirmed completion of his antibiotic on Monday09/30/2023. Denies any symptoms or signs of infection, like erythema, warmth, drainage, edema, or fever. In the office we applied non-stick dressing to the index and middle fingers at the DIPs. This was then covered with Coban. The patient was instructed to continue with twice daily dressing changes. He should not be doing any activities that are dirty with his hand to prevent infection risk. Although it sounds as though the patient will be non-compliant with this based off our last conversation of him installing a countertop and then with him returning to work. Follow up will be on 10/13/2023, or sooner if needed. Orders: Orders OT Evaluation and Treatment Today S61.211A - Laceration without foreign body of left index finger without damage to nail, initial encounter, S61.213A - Laceration without foreign body of left middle finger without damage to nail, initial encounter, S62.631A - Displaced fracture of distal phalanx of left index finger, initial encounter for closed fracture, S62.633A - Displaced fracture of distal phalanx of left middle finger, initial encounter for closed fracture Patient Instructions: Scribed by Dot Borrero medical collections specialist, for Reshmacarmen Crystal PA-C on 10/03/2023 at 8:27 am, EST. Coding Level of Care Code Est Pt Level 3 (43561) Diagnoses Laceration of left index finger, foreign body presence unspecified, nail damage status unspecified, initial encounter S61.211A Damage to nail status: unspecified Encounter type: initial encounter Foreign body presence: unspecified Laceration of left middle finger, foreign body presence unspecified, nail damage status unspecified, initial encounter S61.213A Damage to nail status: unspecified Encounter type: initial encounter Foreign body presence: unspecified Closed fracture of tuft of distal phalanx of left index finger S62.631A Closed fracture of tuft of distal phalanx of left middle finger C48.765N
== END 2023-10-03 08:53 | disposition home or self-care (01) ==
PROVIDERS: PCP Internal Medicine; Visit Provider Physician Assistant
DX: S61.211A Laceration without foreign body of left index finger without damage to nail, initial encounter (principal); S61.213A Laceration without foreign body of left middle finger without damage to nail, initial encounter; S62.631A Displaced fracture of distal phalanx of left index finger, initial encounter for closed fracture; S62.633A Displaced fracture of distal phalanx of left middle finger, initial encounter for closed fracture
CPT/HCPCS: 99213

== ENCOUNTER → 2023-10-03 08:25 | Outpatient (BNVA) | payer OTHER, SELFPAY | PROVIDERS: PCP Internal Medicine; Visit Provider Physician Assistant | DX: S61.211D Laceration without foreign body of left index finger without damage to nail, subsequent encounter (principal); S61.213D Laceration without foreign body of left middle finger without damage to nail, subsequent encounter; S62.631D Displaced fracture of distal phalanx of left index finger, subsequent encounter for fracture with routine healing; S62.633D Displaced fracture of distal phalanx of left middle finger, subsequent encounter for fracture with routine healing | CPT/HCPCS: 99212 ==

== ENCOUNTER 2023-10-13 08:25 | Outpatient (AMB) | payer OTHER, SELFPAY ==
--- NOTE | 2023-10-13 08:32 | MHC.OFFVIS ---
Intake Visit Reasons: OV - Left 2nd&3rd Finger Fx w/ Lac - 09/25/2023 Intake Note: Jeff is a 57 year old right hand dominant male who presents today for a follow up s/p fracture of tuft, distal index phalanx fx, DOI 09/23/23. Patient reports no pain or discomfort. He expresses that he completed his antibiotics. Allergies No Known Allergies Allergy (Verified 10/13/23 08:32) HPI HPI OV - Left 2nd&3rd Finger Fx w/ Lac - 09/25/2023: Details: 57-year-old male who presents in the office today for a wound check and follow up of a laceration on the distal tip of the left 2nd and 3rd digits, along with 2nd and 3rd digits tuft fractures, on the left hand caused by a table saw. I last saw the patient in the office on 10/03/2023 when we applied non-stick dressing to the index and middle fingers at the DIPs and then Coban. Educated on twice daily dressing changes. He was also educated on keeping the area clean and dry. While in the office today the patient report no pain or discomfort. He confirms completion of his antibiotics. [facility] Medical History Anxiety and depression Diabetes HLD (hyperlipidemia) HTN (hypertension) Internal derangement of left knee Social History (Updated 09/25/23 @ 12:36 by Noam Ceballos) Alcohol intake: never Comment: medicated with Vicodin Patient Tobacco Use Status: Never used Tobacco Current occupational status: retired Current occupation: rt hand dominant Review of Systems Const All systems reviewed & are unremarkable except as noted in HPI and below Physical Exam Const General: cooperative, healthy appearing and no acute distress Orientation/consciousness: patient oriented x3 Resp Effort & Inspection: normal respiratory effort and able to speak in complete sentences Cardio Rate: regular rate Peripheral pulses: Peripheral pulses 2+ throughout GI Palpation (GI): Soft to palpation Skin General skin exam: no rashes or lesions noted Lesions: no lesions Rashes: no rashes Neuro General: patient oriented x3 Extrem Other: Left hand: Laceration sites on the at the tips of the index and middle fingers is c/d/i. No surrounding erythema or drainage. No signs of infection. Able to perform flexion and extension at the DIP, PIP, and MCP. Sensation is reportedly intact. Assessment & Plan Assessment & Plan (1) Laceration of left index finger: Code(s): S61.211A - Laceration without foreign body of left index finger without damage to nail, initial encounter Category: Medical Qualifiers: Damage to nail status: unspecified Encounter type: initial encounter Foreign body presence: unspecified Qualified Code(s): S61.211A - Laceration without foreign body of left index finger without damage to nail, initial encounter (2) Laceration of left middle finger: Code(s): S61.213A - Laceration without foreign body of left middle finger without damage to nail, initial encounter Category: Medical Qualifiers: Damage to nail status: unspecified Encounter type: initial encounter Foreign body presence: unspecified Qualified Code(s): S61.213A - Laceration without foreign body of left middle finger without damage to nail, initial encounter (3) Closed fracture of tuft of distal phalanx of left index finger: Code(s): S62.631A - Displaced fracture of distal phalanx of left index finger, initial encounter for closed fracture Category: Medical (4) Closed fracture of tuft of distal phalanx of left middle finger: Code(s): S62.633A - Displaced fracture of distal phalanx of left middle finger, initial encounter for closed fracture Category: Medical Plan Mr. Avila is a 57-year-old male who presents in the office today for a wound check and follow up of a laceration on the distal tip of the left 2nd and 3rd digits, along with 2nd and 3rd digits tuft fractures, on the left hand caused by a table saw. I last saw the patient in the office on 10/03/2023 when we applied non-stick dressing to the index and middle fingers at the DIPs and then Coban. Educated on twice daily dressing changes. He was also educated on keeping the area clean and dry. While in the office today the patient report no pain or discomfort. He confirms completion of his antibiotics. The patient confirms completing his antibiotics and there is no signs of infection at this time. He will continue dry dressing changes. I would like to see the patient in the office in two weeks for a wound check. However, he may not be in the area and if that is the case, he will call the office for telehealth to give me any update on his wound. Otherwise, follow up will be in 2 weeks, or sooner if needed. Patient Instructions: Scribed by Dot Borrero, medical assistant internal medicine, for Reshma Marah MOREIRA on 10/13/2023 at 8:30 am, EST. Coding Level of Care Code Global (05431) Diagnoses Laceration of left index finger, foreign body presence unspecified, nail damage status unspecified, initial encounter S61.211A Damage to nail status: unspecified Encounter type: initial encounter Foreign body presence: unspecified Laceration of left middle finger, foreign body presence unspecified, nail damage status unspecified, initial encounter S61.213A Damage to nail status: unspecified Encounter type: initial encounter Foreign body presence: unspecified Closed fracture of tuft of distal phalanx of left index finger S62.631A Closed fracture of tuft of distal phalanx of left middle finger S62.633A
== END 2023-10-13 08:47 | disposition home or self-care (01) ==
PROVIDERS: PCP Internal Medicine; Visit Provider Physician Assistant
DX: S61.211A Laceration without foreign body of left index finger without damage to nail, initial encounter (principal); S61.213A Laceration without foreign body of left middle finger without damage to nail, initial encounter; S62.631A Displaced fracture of distal phalanx of left index finger, initial encounter for closed fracture; S62.633A Displaced fracture of distal phalanx of left middle finger, initial encounter for closed fracture
CPT/HCPCS: 99213

== ENCOUNTER → 2023-10-13 08:25 | Outpatient (BNVA) | payer OTHER, SELFPAY | PROVIDERS: PCP Internal Medicine; Visit Provider Physician Assistant | DX: S61.213D Laceration without foreign body of left middle finger without damage to nail, subsequent encounter (principal); S62.631D Displaced fracture of distal phalanx of left index finger, subsequent encounter for fracture with routine healing; S62.633D Displaced fracture of distal phalanx of left middle finger, subsequent encounter for fracture with routine healing | CPT/HCPCS: 99212 ==

== ENCOUNTER 2024-02-12 13:28 | Outpatient (AMB) | payer OTHER, SELFPAY ==
--- NOTE | 2024-02-12 13:37 | A.OFFVIS_ITS ---
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 The patient is a 58-year-old gentleman who gets most of his care through the [place]. the patient does have a history of obstructive sleep apnea. About 3 years ago the patient was referred to Dr. Briones and he had a hypoglossal nerve stimulator placed for sleep apnea. That therapy has been affecting beneficial. Since then he has lost significant amount of weight. He has been trying to make an arrangement for him to have inspire adjusted. In the meantime the patient is having issue with his knee. He is looking to have a total knee replacement done. From a respiratory standpoint the patient has been doing well he denies any coughing shortness of breath. He did smoke cigars back many years ago but he subsequently stopped. Will have him undergo a chest x-ray and also spirometry. At this point the patient is medically stable from a pulmonary standpoint may be able to proceed with surgery without any reservations. [facility] Medical History (Updated 02/12/24 @ 21:45 by Teo Ceballos MD) FRIEDA (obstructive sleep apnea) Pre-op chest exam Anxiety and depression Diabetes HLD (hyperlipidemia) HTN (hypertension) Internal derangement of left knee Social History (Updated 09/25/23 @ 12:36 by Noam Ceballos) Alcohol intake: never Comment: medicated with Vicodin Patient Tobacco Use Status: Never used Tobacco Current occupational status: retired Current occupation: rt hand dominant Review of Systems Const Denies daytime sleepiness and Reports weight loss ENT Reports no additional complaints Card Denies chest pain Resp Denies cough and Denies wheezing GI Reports no additional complaints Musc Reports as per HPI, Reports arthralgias and Reports limited range of motion Skin/Breast Denies rash Neuro Reports no additional complaints Aller/Immun Denies wheezing Physical Exam Vital Signs: Last Vital Signs Pulse 90 02/12/24 13:38 BP 100/60 02/12/24 13:38 Pulse Ox 95 09/16/24 13:38 Oxygen Delivery Method Room Air 02/12/24 13:38 BMI result Body Mass Index 26.3 Const General: comfortable HEENT Head: Yes normocephalic Neck Neck: Yes supple Chest Chest palpation & inspection: normal inspection of the chest Resp Effort & Inspection: normal respiratory effort Auscultation: clear to auscultation bilaterally Cardio Heart sounds: S1 normal heart sound present and S2 normal heart sound present GI Palpation (GI): Soft to palpation Skin General skin exam: no rashes or lesions noted Extrem General: No clubbing and No cyanosis Office Procedures Spirometry Testing Spirometry Comments: In office spirometry completed with results to Dr Ceballos. 34092- Spirometry Results Reviewed Results Reviewed: Assessment & Plan Assessment & Plan (1) Pre-op chest exam: Code(s): Z01.811 - Encounter for preprocedural respiratory examination Category: Medical (2) FRIEDA (obstructive sleep apnea): Code(s): G47.33 - Obstructive sleep apnea (adult) (pediatric) Category: Medical Plan preoperative evaluation: The patient has a history of severe sleep apnea status post hypoglossal nerve stimulator (Inspire) Based on his most recent sleep study from 09/16/2023 the patient continues to have severe sleep apnea, therefore, he needs to continue to use the Inspire every night. From a pulmonary standpoint the patient is doing well. Spirometry demonstrate adequate lung capacity. At this point the patient may be able to proceed with anesthesia and orthopedic surgery. The patient does have some increased risk for perioperative pulmonary complications which includes; atelectasis, hypoxia, pneumonia. He needs to make sure to use the inspire device after surgery while napping and sleeping. CXR Spirometry, normal F/U as needed Orders: Orders 2 XR chest 2V Today Z01.811 - Encounter for preprocedural respiratory examination AMB Spirometry Testing Today Z01.811 - Encounter for preprocedural respiratory examination Coding Level of Care Code New Pt Level 4 (09900) Diagnoses Pre-op chest exam Z01.811 FRIEDA (obstructive sleep apnea) G47.33 CPT Codes Spirometry - CPT: 20147- Spirometry ([id number]) Time Spent (min) 30
[2024-02-12 13:38] VITALS: BP 100/60; PULSE 90; O2SAT 95; BMI 26.3
== END 2024-02-12 14:14 | disposition home or self-care (01) ==
PROVIDERS: PCP Internal Medicine; Visit Provider Hospitalist
DX: Z01.811 Encounter for preprocedural respiratory examination (principal); G47.33 Obstructive sleep apnea (adult) (pediatric)
CPT/HCPCS: 94010; 99204

== ENCOUNTER → 2024-02-12 13:28 | Outpatient (BNVA) | payer OTHER, SELFPAY | PROVIDERS: PCP Internal Medicine; Visit Provider Hospitalist | DX: Z01.811 Encounter for preprocedural respiratory examination (principal); G47.33 Obstructive sleep apnea (adult) (pediatric) | CPT/HCPCS: 94010; 99202 ==

== ENCOUNTER 2024-02-14 07:13 | Outpatient (REF) | payer OTHER, SELFPAY ==
--- NOTE | ~2024-02-14 | XR_ITS ---
EXAMINATION: XR CHEST 2 VIEW CLINICAL INFORMATION: Preprocedural respiratory examination COMPARISON: 120 TECHNIQUE: PA and lateral views of the chest obtained. FINDINGS: A neurostimulator device projects over the right anterior chest wall, with its lead extending cephalad into the neck. The lungs are clear. There are no pleural effusions. The cardiomediastinal silhouette is normal. Spondylotic changes are noted in the dorsal spine. XR/XR chest 2V IMPRESSION: No acute cardiopulmonary disease. Electronically signed by: Jd Guerra MD 02/14/2024 07:50 AM EDT
== END 2024-02-14 07:14 | disposition home or self-care (01) ==
LOC: HO.XRAY 07:13
PROVIDERS: PCP Internal Medicine; Visit Provider Hospitalist
DX: Z01.811 Encounter for preprocedural respiratory examination (principal)
CPT/HCPCS: 71046

== ENCOUNTER → 2024-03-12 08:34 | Outpatient (BNVA) | payer OTHER, SELFPAY | PROVIDERS: PCP Internal Medicine | DX: Z01.818 Encounter for other preprocedural examination (principal) ==

== ENCOUNTER 2024-04-04 09:21 | Outpatient (AMB) | payer OTHER, SELFPAY ==
--- NOTE | 2024-04-04 09:43 | A.OFFVIS_ITS ---
Intake Visit Reasons: Pre-Op: R TKA w/NE 04/10/24 Intake Note: Jeff is a 58 year old male who presents today for a pre op appointment for his right TKA 04/10/24 NE. Allergies No Known Allergies Allergy (Verified 04/04/24 09:44) HPI HPI Pre-Op: R TKA w/NE 04/10/24: Details: 58-year-old right hand dominant male who presents in the office today for his preoperative history and physical exam prior to a right total knee arthroplasty to be performed on 04/10/[address] Fritz. The patient reports his pain is limiting her daily activities. He has tried and failed all conservative treatments. Therefore, he has elected to proceed with a right total knee arthroplasty. While in the office today, the patient is reluctant to have spinal. 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 Patient has no known allergy history. Patient is currently taking, as follows: -Aspirin 81 mg PO QAM. -Atorvastatin 40 mg PO QAM. -Bupropion HCL XL 150 mg PO QAM. -Empagliflozin 10 mg PO QAM. -Hydrochlorothiazide 12.5 mg PO QAM. -Lisinopril 5 mg PO QAM. -Loratadine 10 mg PO QAM PRN. -Metformin 1,000 mg PO QAM. -Semaglutide 1 mg subcut QWEEK. Patient has a medical history, as follows: -Maxillary sinusitis. -Obstructive sleep apnea. -Anxiety and depression. -Type 2 diabetes mellitus. -Hyperlipidemia. -Hypertension. Patient has a surgical history, as follows: -H/O colonoscopy. -S/P placement of nerve stimulator; Inspire for ARLETH. -Hx of arthroscopic right knee surgery x2. -Hx of hernia surgery. Patient has a social history, as follows: -Tobacco; Cigar; someday. -Medicated with Vicodin. [facility] Medical History (Updated 04/01/24 @ 10:03 by Hilary Pandey RN) ARLETH (obstructive sleep apnea) Anxiety and depression Diabetes HLD (hyperlipidemia) HTN (hypertension) Internal derangement of left knee Surgical History (Updated 04/04/24 @ 10:14 by Reshma Crystal PA-C) H/O colonoscopy S/P placement of nerve stimulator Hx of arthroscopic knee surgery Hx of hernia repair Social History (Updated 09/25/23 @ 12:36 by Noam Ceballos) Are you a primary healthcare science specialist to a significant other at home: No Do you presently have visiting nurse or other home services: No Alcohol intake: never Comment: medicated with Vicodin Patient Tobacco Use Status: Current someday Tobacco user Tobacco use type: Cigar Current occupational status: retired Current occupation: rt hand dominant Review of Systems Const All systems reviewed & are unremarkable except as noted in HPI and below Physical Exam Const General: cooperative, healthy appearing, comfortable, no acute distress, well developed, alert and awake Orientation/consciousness: patient oriented x3 HEENT Head: Yes normal to inspection, Yes normocephalic and Yes atraumatic Eyes General: appearance normal, both eyes and all related structures Neck Neck: Yes normal visual inspection and Yes no lymphadenopathy Resp Effort & Inspection: normal respiratory effort and able to speak in complete sentences Cardio Rate: regular rate Peripheral pulses: Peripheral pulses 2+ throughout GI Inspection: Yes normal to inspection Palpation (GI): Soft to palpation Skin General skin exam: no rashes or lesions noted Neuro General: patient oriented x3 Extrem Other: Tenderness to palpation medial compartment right knee Varus alignment bilaterally right greater than left 1+ varus instability right knee Right knee skin intact Psych Mental Status: mental status grossly normal Assessment & Plan Assessment & Plan (1) Arthritis of right knee: Code(s): M17.11 - Unilateral primary osteoarthritis, right knee Category: Medical Plan: Jean Paul () [phone] Does not want spinal (2) Varus deformity of knee: Code(s): M21.169 - Varus deformity, not elsewhere classified, unspecified knee Category: Medical Plan Mr. Avila is a 58-year-old right hand dominant male who presents in the office today for his preoperative history and physical exam prior to a right total knee arthroplasty to be performed on 04/10/[address] Fritz. The patient reports his pain is limiting her daily activities. He has tried and failed all conservative treatments. Therefore, he has elected to proceed with a right total knee arthroplasty. While in the office today, the patient is reluctant to have spinal. 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 He has provided his Ms. Reaves's phone number ([phone]) for Dr. Fritz to be contacted after the surgery. Patient has no known allergy history. Patient is currently taking, as follows: -Aspirin 81 mg PO QAM. -Atorvastatin 40 mg PO QAM. -Bupropion HCL XL 150 mg PO QAM. -Empagliflozin 10 mg PO QAM. -Hydrochlorothiazide 12.5 mg PO QAM. -Lisinopril 5 mg PO QAM. -Loratadine 10 mg PO QAM PRN. -Metformin 1,000 mg PO QAM. -Semaglutide 1 mg subcut QWEEK. Patient has a medical history, as follows: -Maxillary sinusitis. -Obstructive sleep apnea. -Anxiety and depression. -Type 2 diabetes mellitus. -Hyperlipidemia. -Hypertension. Patient has a surgical history, as follows: -H/O colonoscopy. -S/P placement of nerve stimulator; Inspire for ARLETH. -Hx of arthroscopic right knee surgery x2. -Hx of hernia surgery. Patient has a social history, as follows: -Tobacco; Cigar; someday. -Medicated with Vicodin. I discussed in detail the procedure and what to expect pre and post operatively. We discussed the risks, benefits and alternatives to the surgery and the rehabilitation course. The risks include infection, bleeding, nerve injury, ongoing pain, swelling, and stiffness, perioperative risk of injury to bones and soft tissues, and blood clots. Patient does NOT want a spinal. I have answered all questions and with their understanding they have consented to move forward with a right total knee arthroplasty to be performed on 04/10/[address] Fritz. He has provided his Ms. Reaves's phone number ([phone]) for Dr. Fritz to be contacted after the surgery. The patient would like to attend [facility] outpatient physical therapy. Therefore, a referral was placed for PT today. Follow up will be on 04/29/2024, or sooner if needed. X-rays of the right knee, which were obtained while in the office today and were reviewed by me, Reshma Crystal PA-C, which were preoperative films. Orders: Orders XR knee RT 3V 04/04/24 M25.569 - Pain in unspecified knee XR knee LT 1V 04/04/24 M25.569 - Pain in unspecified knee PT Evaluation and Treatment 04/04/24 Z96.651 - Presence of right artificial knee joint Patient Instructions: Scribed by Sofi Choe, medical insurance coder, for Reshma Crystal PA-C on at 10:40 am EST. Coding Level of Care Code Global (81497) Diagnoses Arthritis of right knee M17.11 Varus deformity of knee M21.169
== END 2024-04-04 10:06 | disposition home or self-care (01) ==
LOC: HO.HOS 09:22
PROVIDERS: PCP Internal Medicine; Visit Provider Physician Assistant
DX: M17.11 Unilateral primary osteoarthritis, right knee (principal); M21.161 Varus deformity, not elsewhere classified, right knee
CPT/HCPCS: 99024

== ENCOUNTER 2024-04-04 10:07 | Outpatient (REF) | payer OTHER, SELFPAY | END 2024-04-04 10:08 | disposition home or self-care (01) | LOC: HO.HOSX 10:07 | PROVIDERS: Visit Provider Physician Assistant | DX: Z01.818 Encounter for other preprocedural examination (principal); M17.11 Unilateral primary osteoarthritis, right knee; M25.569 Pain in unspecified knee; M21.161 Varus deformity, not elsewhere classified, right knee; M21.162 Varus deformity, not elsewhere classified, left knee | CPT/HCPCS: 73560; 73562; 99212 ==

== ENCOUNTER 2024-04-10 06:39 | Day surgery (SDC) | payer OTHER, SELFPAY ==
[2024-04-01 10:11] VITALS: BP 131/72; PULSE 92; RESP 18; O2SAT 97; BMI 27.1
[2024-04-01 14:14] LABS: MRSA Nasal PCR NEGATIVE (Negative); SA Nasal PCR POSITIVE (Negative)
[2024-04-10] VITALS (14 sets, daily range): BP systolic 113–171; BP diastolic 65–88; PULSE 71–95; RESP 15–20; TEMP 36.2–37.2; O2SAT 93–100; BMI 27.1; BMI 29.1
--- NOTE | ~2024-04-10 | XR_ITS ---
EXAMINATION: XR KNEE, RIGHT CLINICAL INFORMATION: s/p RTKA COMPARISON: Right knee radiograph 04/04/2024 TECHNIQUE: AP and lateral views of the right knee. FINDINGS: Prosthetic components of the total knee arthroplasty are appropriately aligned. No periprosthetic fracture. Gas from recent surgery is present in the joint and surrounding soft tissues. A joint effusion is present. Overlying anterior skin delio noted. XR/XR knee RT 2V IMPRESSION: Expected postoperative appearance of the right knee following total knee arthroplasty. Electronically signed by: Germaine Guthrie DO 04/10/2024 12:37 PM EST
[2024-04-10 06:56] LABS: Hematocrit 43.8 % (42.0-52.0); Hemoglobin 15.4 g/dl (14.0-18.0)
--- NOTE | 2024-04-10 07:20 | P.CONAN_ITS ---
Documented by User: Shalonda Mclaughlin NP 04/09/24 10:11 HPI - Anesthesia Eval Consult details Narrative: 58yo M for Right Knee Replacement Total, 04/10/24 Medically optimized per [place] provider Pulmonary optimized. [place] [facility] [place] AR[place]TH No recent illness. Mild allergy congestion, PND No CP/SOB with walkiing ARLETH: Inspire device in situ. Will bring remote DM: FBS ~ 120-130 Anesthesia Pre-Procedure Meds Is the patient on any of the following meds?: GLP1/DPP4 and SGLT2 Inhib PMFSH Active Problems Active Problems: All Active Problems Pre-op chest exam (Acute) Closed fracture of tuft of distal phalanx of left middle finger (Acute) Closed fracture of tuft of distal phalanx of left index finger (Acute) Laceration of left middle finger (Acute) Laceration of left index finger (Acute) Varus deformity of knee (Acute) Maxillary sinusitis (Acute) Arthritis of right knee (Acute) ARLETH (obstructive sleep apnea) (Acute) Internal derangement of left knee (Acute) Past Medical History Medical History (Updated 04/01/24 @ 10:03 by Hilary Pandey RN) ARLETH (obstructive sleep apnea) Anxiety and depression Diabetes HLD (hyperlipidemia) HTN (hypertension) Internal derangement of left knee Surgical History Surgical History (Updated 04/04/24 @ 10:14 by Reshma Crystal PA-C) H/O colonoscopy S/P placement of nerve stimulator Hx of arthroscopic knee surgery Hx of hernia repair Social History Social History (Updated 09/25/23 @ 12:36 by Noam Ceballos) Are you a primary healthcare technician to a significant other at home: No Do you presently have visiting nurse or other home services: No Alcohol intake: never Comment: medicated with Vicodin Patient Tobacco Use Status: Current someday Tobacco user Tobacco use type: Cigar Use of substances other than those prescribed or required for medical reasons: No Have you been hit, kicked, punched, or otherwise hurt by someone within the past year? If so, by whom?: No Spiritual Healthcare Practices: none Islam Healthcare Practices: Latter Day Cultural Healthcare Practices: none Are you DNR?: No Advance Directives Information Provided: Yes (as above noted) Advance Directives on File: No Recently lost weight without trying: No Eating poorly because of decreased appetite: No Nutrition Risks: No Nutritional Risk Poor oral hygiene: No (some extracted teeth) Current occupational status: retired Current occupation: rt hand dominant Meds Allergies Allergy/AdvReac Type Severity Reaction Status Date / Time No Known Allergies Allergy Verified 04/10/24 06:43 Home Medications ?Medication ?Instructions ?Recorded ?Confirmed ?Last Taken ?Type aspirin 81 mg tablet,delayed 81 mg PO QAM 05/28/22 04/10/24 04/03/24 History release (Adult Low Dose Aspirin) atorvastatin 80 mg tablet 40 mg PO QAM 05/28/22 04/10/24 04/09/24 History empagliflozin 10 mg tablet 10 mg PO QAM 05/28/22 04/10/24 04/06/24 History hydrochlorothiazide 12.5 mg tablet 12.5 mg PO QAM 05/28/22 04/10/24 04/09/24 History lisinopril 5 mg tablet 5 mg PO QAM 05/28/22 04/10/24 04/09/24 History bupropion HCl 150 mg 24 hr tablet, 150 mg PO QAM 08/28/23 04/10/24 04/09/24 History extended release loratadine 10 mg tablet (Allergy 10 mg PO QAM PRN allergies 08/28/23 04/10/24 04/09/24 History Relief (loratadine)) metformin 500 mg tablet 1,000 mg PO QAM 08/28/23 04/10/24 04/06/24 History semaglutide 1 mg/dose (4 mg/3 mL) 1 mg subcut QWEEK 03/28/24 04/10/24 03/28/24 History subcutaneous pen injector Exam Height,Weight and Vital Signs: Height 6 ft 3 in Weight 98.43 kg Last Vital Signs Pulse 92 04/01/24 10:11 Resp 18 04/01/24 10:11 BP 131/72 04/01/24 10:11 Pulse Ox 97 04/01/24 10:11 O2 Del Method Room Air 04/01/24 10:11 Pertinent Lab Results Pertinent Lab Results: Lab Results 04/01/24 04/01/24 Range/Units 10:25 11:16 Nasal Screen MRSA (PCR) NEGATIVE (Negative) Nasal S. aureus Screen POSITIVE A (Negative) Nasal MRSA/S.aureus Interp SEE NOTE Blood Type B Negative Antibody Screen NEGATIVE CBC and BMP 02/2024 from outside facility WNL Narrative Narrative: EKG 02/2024 NSR @ 90 Airway Mallampati Class: II TM Dist: >3cm Neck ROM: Full (mild sore) Loose/Missing/Broken Teeth: Yes (Molars missing right side) Heart: RRR Lungs: CTAB Assessment and Plan Assessment Anesthesia Assessment: Anesthesia Plan Discussed and PAT Visit Documented by User: Joellen Villatoro DO 04/10/24 08:52 HPI - Anesthesia Eval Anesthesia Pre-Procedure Meds Is the patient on any of the following meds?: GLP1/DPP4 and SGLT2 Inhib PMFSH Past Medical History Medical History (Updated 04/01/24 @ 10:03 by Hilary Pandey RN) ARLETH (obstructive sleep apnea) Anxiety and depression Diabetes HLD (hyperlipidemia) HTN (hypertension) Internal derangement of left knee Family History Family history of problems with anesthesia: No Surgical History Surgical History (Updated 04/04/24 @ 10:14 by Reshma Crystal PA-C) H/O colonoscopy S/P placement of nerve stimulator Hx of arthroscopic knee surgery Hx of hernia repair History of Problems with Anesthesia: No Social History Social History (Updated 09/25/23 @ 12:36 by Noam Ceballos) Are you a primary healthcare technician to a significant other at home: No Do you presently have visiting nurse or other home services: No Alcohol intake: never Comment: medicated with Vicodin Patient Tobacco Use Status: Current someday Tobacco user Tobacco use type: Cigar Use of substances other than those prescribed or required for medical reasons: No Have you been hit, kicked, punched, or otherwise hurt by someone within the past year? If so, by whom?: No Spiritual Healthcare Practices: none Islam Healthcare Practices: Latter Day Cultural Healthcare Practices: none Are you DNR?: No Advance Directives Information Provided: Yes (as above noted) Advance Directives on File: No Recently lost weight without trying: No Eating poorly because of decreased appetite: No Nutrition Risks: No Nutritional Risk Poor oral hygiene: No (some extracted teeth) Current occupational status: retired Current occupation: rt hand dominant Meds Allergies Allergy/AdvReac Type Severity Reaction Status Date / Time No Known Allergies Allergy Verified 04/10/24 06:43 Home Medications ?Medication ?Instructions ?Recorded ?Confirmed ?Last Taken ?Type aspirin 81 mg tablet,delayed 81 mg PO QAM 05/28/22 04/10/24 04/03/24 History release (Adult Low Dose Aspirin) atorvastatin 80 mg tablet 40 mg PO QAM 05/28/22 04/10/24 04/09/24 History empagliflozin 10 mg tablet 10 mg PO QAM 05/28/22 04/10/24 04/06/24 History hydrochlorothiazide 12.5 mg tablet 12.5 mg PO QAM 05/28/22 04/10/24 04/09/24 History lisinopril 5 mg tablet 5 mg PO QAM 05/28/22 04/10/24 04/09/24 History bupropion HCl 150 mg 24 hr tablet, 150 mg PO QAM 08/28/23 04/10/24 04/09/24 His tory extended release loratadine 10 mg tablet (Allergy 10 mg PO QAM PRN allergies 08/28/23 04/10/24 04/09/24 History Relief (loratadine)) metformin 500 mg tablet 1,000 mg PO QAM 08/28/23 04/10/24 04/06/24 History semaglutide 1 mg/dose (4 mg/3 mL) 1 mg subcut QWEEK 03/28/24 04/10/24 03/28/24 History subcutaneous pen injector Exam Exam Date and Time: 04/10/24 0720 Air[address] Mallampati Class: II TM Dist: >3cm Neck ROM: Full Loose/Missing/Broken Teeth: Yes (Molars missing right side) Heart: S1S2 Assessment and Plan Assessment Anesthesia Assessment: Anesthesia Plan Discussed and Chart Reviewed Final Anesthetic Review Family History of Problems with Anesthesia: No History of Problems with Anesthesia: No NPO: Yes ASA Class: II Final Preanesthetic Review: No Changes in Pt Med Stat, Meds/Allgs Chart Reviewed, Consent Obtained/Reviewed and Anes Risks/Benef Reviewed Patient Risk: Low Procedure Risk: Intermediate Anesthetic Plan Anesthetic Plan: GA (patient declined spinal due to fear of needles in his back but agreeable to regional blocks), Regional Block (right adductor canal and right ipack blocks) and Agree w/ Assess. and Plan Disposition: Standard PACU
--- NOTE | 2024-04-10 07:27 | MHC.SHP ---
Pre-Procedural Eval Section A - 24 Hr Update-Section A only Date of Service: 04/10/24 The patient is an INPATIENT: No Changes since office visit: No Cold of Flu in the past 2 weeks, No New Medical Problems, No Changes in Medication and No Patient answered all questions The patient has been examined within 24 hours of the surgical procedure. The History & Physical has been completed within 30 days and I have reviewed it.: Yes Section B - Complete if H&P > 30 days Chief Complaint: RTKA Allergies: Allergies Allergy/AdvReac Type Severity Reaction Status Date / Time No Known Allergies Allergy Verified 04/10/24 06:43 Plan I have reviewed the history and physical and performed a pertinent physical examination on my patient. No changes have occurred unless specified. Time Spent With Patient Time: Total time managing care of this patient today ____ minutes.
[2024-04-10 07:56] LABS: Glucose, Whole Blood 162 mg/dL (60-115)
--- NOTE | 2024-04-10 09:53 | P.OP_ITS ---
Operative Note Operative Note Date of Service: 04/10/24 Narrative: Date of Service: 04/10/24 Pre-op diagnosis: Right knee OA Post-op diagnosis: same Procedure: Right TKA Implants: [place] Triathlon press fit cruciate retaining 09/30/10 Surgeon: Constantine Fritz MD Anesthesia: GLMA and regional Was an Stamp Pad Maker used for this Procedure?: Yes Stamp Pad Maker: Reshma Crystal Estimated blood loss (mL): 5 Tourniquet time (min): 60 IV fluids (mL): 1,000 Pathology: other Condition: stable Disposition: PACU Procedure in detail: The patient was brought to the operating room and prepped and draped in standard sterile fashion. A time-out was called to identify proper site proper procedure proper surgeon and IV antibiotics were administered. 1 g of IV tranexamic acid was administered. I began by making a midline incision to the retinaculum and performed a medial parapatellar arthrotomy. The patella was translated laterally and the knee was flexed up. The medial compartment was eburnated. I performed a small medial peel and resected the infrapatellar fat pad. Nicholls's line was then used to drill my intramedullary femoral guide and my distal femur cut of 12mm (10 deg flexioxion contracture) was made in 5 degrees of valgus while protecting the soft tissues. I then measured a # 5 femur and placed my cutting guide and made my anterior posterior and chamfer cuts in 3 deg ER while protecting the soft tissues at all times. Once I was satisfied with my cuts I turned my attention to the tibia. I removed the meniscus medially and laterally and , using an external cutting guide, in line with the tibial crest and the third ray, I made my distal tibial cut in 3 deg slope of while protecting the PCL the posterior soft tissues at all times. An extension block was used to confirm appropriate amount of bony resection. I then sized a #5 tibia and once I was satisfied that there was complete tibial coverage I placed my trial and with the trial femur in place took the knee through range of motion. I was satisfied with the extension and flexion as well as the stability and balance at 0, 30 and 90 degrees. I then turned my attention to the patella where I removed 1 cm from the undersurface of the patella and then trialed a 32a patellar button. Again the knee was taken through range of motion I was satisfied with the tracking. I then returned to the femur and drilled my femoral lug holes and prepared the tibia. A femoral bone plug was placed and the knee was irrigated copiously. I then press fit the patella, tibia and femur in standard fashion. I trialed different inserts until I selected a #11 insert. The final insert was placed and local TXA was administered. A Werewolf cautery wand was used to maintain hemostasis over the posterior capsule and meniscal beds, the gutters and peripatellar soft tissues. The knee was then closed with a running Quill suture, a 3 0 Vicryl and delio on the skin. Patient was then placed in sterile dressing and brought to recovery room in stable condition there were no known complications.
[2024-04-10] MEDS: HYDROmorphone HCl 0.5 MG/0.5 ML SYRINGE IVPUSH ×2 (10:19→10:40)
[2024-04-10] MEDS: Lactated Ringers 1,000 ML 100 ML IVCONT ×2 (12:42→23:00)
[2024-04-10] MEDS: Empagliflozin 10 MG TABLET PO (12:48)
[2024-04-10] MEDS: Docusate Sodium 100 MG CAPSULE PO ×2 (12:48→20:24)
[2024-04-10] MEDS: metFORMIN HCl 1,000 MG TABLET 1000 MG PO (12:48)
[2024-04-10] MEDS: oxyCODONE HCl Immed Release 5 MG TABLET PO ×2 (12:48→17:36)
[2024-04-10] MEDS: Atorvastatin Calcium 40 MG TABLET PO (12:48)
[2024-04-10] MEDS: Celecoxib 200 MG CAPSULE PO ×2 (12:48→20:25)
[2024-04-10] MEDS: hydroCHLOROthiazide 12.5 MG TABLET PO (12:48)
[2024-04-10] MEDS: lisinopriL 5 MG TABLET PO (12:48)
[2024-04-10] MEDS: oxyCODONE HCl ER 10 MG TAB.ER.12H PO ×2 (12:49→20:23)
[2024-04-10] MEDS: buPROPion HCl XL 150 MG TAB.ER.24H PO (12:50)
[2024-04-10] MEDS: ceFAZolin Sodium/Dextrose,Iso 2 GM/50 ML PIGGYBACK IV (12:50)
--- NOTE | 2024-04-10 13:23 | P.CONHOSP_ITS ---
History of Present Illness Data of Consult Service Date: 04/10/24 Primary Care Provider: Sara Infante MD [facility] Reason for consult: Medical management Patient is a 58-year-old with a PMH significant for HTN, HLD, bth-kfarkon-igxksxupi type 2 diabetes, peripheral neuropathy, and ARLETH w/Inspire device in place who was admitted to the hospital under orthopedic services for right TKA. POD 0. Hospitalist consult for medical management. Patient seen resting comfortably in his bed eating lunch. Overall patient reports feels quite well without significant complaints. Patient reports some upper right thigh cramping, but denies any right knee pain. Chronic lower extremity numbness and tingling at baseline. Has not yet been up and out of bed. Patient reports decided to take control of his diabetes over 1 year ago, and has reduced A1c from 11.0 to 5. Reports carefully monitors dietary intake. Patient otherwise has no acute medical complaints. No fever, chills, nausea, vomiting, abdominal pain. Denies shortness or breath or difficulty breathing. No chest pain/pressure, palpitations Review of Systems 2 Review of Systems: Negative except for that which is stated in the HPI. [facility] Medical History ARLETH (obstructive sleep apnea) Anxiety and depression Diabetes HLD (hyperlipidemia) HTN (hypertension) Internal derangement of left knee Surgical History H/O colonoscopy S/P placement of nerve stimulator Hx of arthroscopic knee surgery Hx of hernia repair Social History Household Members: Spouse Housing: House Are you a primary home care music therapist to a significant other at home: No Do you presently have visiting nurse or other home services: No Alcohol intake: never Comment: medicated with Vicodin Patient Tobacco Use Status: Never used Tobacco Tobacco use type: Cigar Use of substances other than those prescribed or required for medical reasons: No Have you been hit, kicked, punched, or otherwise hurt by someone within the past year? If so, by whom?: No Do you feel safe in your current relationship?: Yes Is there a partner from a previous relationship who is making you feel unsafe now?: No Are you made to feel afraid or neglected: No Spiritual Healthcare Practices: none Buddhist Healthcare Practices: Confucianism Cultural Healthcare Practices: none Are you DNR?: No Advance Directives Information Provided: Yes (as above noted) Advance Directives on File: No Do you have a plan to hurt others: No Plan Recently lost weight without trying: No Eating poorly because of decreased appetite: No Nutrition Risks: No Nutritional Risk Poor oral hygiene: No (some extracted teeth) Current occupational status: retired Current occupation: rt hand dominant Meds Allergies Allergy/AdvReac Type Severity Reaction Status Date / Time No Known Allergies Allergy Verified 04/10/24 06:43 Active Medications: Current Medications Acetaminophen (Acetaminophen 325 Mg Tablet) 650 mg PO Q6H PRN PRN Reason: Pain, Mild (Pain Scale 1-3), fever or headache Aspirin (Aspirin 325 Mg Tablet) 325 mg PO BID [facility] Atorvastatin Calcium (Atorvastatin Calcium 40 Mg Tablet) 40 mg PO DAILY [facility] Last Admin: 04/10/24 12:48 Dose: 40 mg Bupropion HCl (Bupropion Hcl Xl 150 Mg Tab.Er.24h) 150 mg PO DAILY [facility] Last Admin: 04/10/24 12:50 Dose: 150 mg Celecoxib (Celecoxib 200 Mg Capsule) 200 mg PO BID [facility] Last Admin: 04/10/24 12:48 Dose: 200 mg Docusate Sodium (Docusate Sodium 100 Mg Capsule) 100 mg PO BID [facility] Last Admin: 04/10/24 12:48 Dose: 100 mg Empagliflozin (Empagliflozin 10 Mg Tablet) 10 mg PO DAILY [facility] Last Admin: 04/10/24 12:48 Dose: 10 mg Glucose (Glucose Gel 15 Gm Gel..Gram.) 15 gm PO Q15M PRN; Protocol PRN Reason: per Hypoglycemia Standing Ord. Haloperidol Lactate (Haloperidol Lactate 5 Mg/Ml Vial) 1 mg IVPUSH ONCE PRN PRN Reason: intractable nausea Stop: 04/10/24 14:52 Hydrochlorothiazide (Hydrochlorothiazide 12.5 Mg Tablet) 12.5 mg PO DAILY [facility]; Protocol Last Admin: 04/10/24 12:48 Dose: 12.5 mg Hydromorphone HCl (Hydromorphone Hcl 0.5 Mg/0.5 Ml Syringe) 0.5 mg IVPUSH Q5M PRN PRN Reason: Pain, Moderate to Severe (Pain Scale 4-10) Stop: 04/10/24 14:52 Last Admin: 04/10/24 10:40 Dose: 0.5 mg Hydromorphone HCl (Hydromorphone Hcl 0.5 Mg/0.5 Ml Syringe) 0.25 mg IVPUSH Q4H PRN; Protocol PRN Reason: Pain, Severe (Pain Scale 7-10) Lactated Ringer's (Lr) 1,000 mls @ 100 mls/hr IVCONT .Q10H [facility] Last Admin: 04/10/24 12:42 Dose: 100 mls/hr Dextrose (D10) 250 mls @ 750 mls/hr IV Q15M PRN; Protocol PRN Reason: per Hypoglycemia Standing Ord. Insulin Human Lispro (Insulin Lispro 100 Unit/Ml 3 Ml Vial) 0 unit SUBCUT QIDACHS [facility]; Protocol Lisinopril (Lisinopril 5 Mg Tablet) 5 mg PO DAILY [facility]; Protocol Last Admin: 04/10/24 12:48 Dose: 5 mg Loratadine (Loratadine 10 Mg Tablet) 10 mg PO DAILY PRN PRN Reason: allergies Magnesium Hydroxide (Milk Of Magnesia 30 Ml Oral.Susp) 30 ml PO DAILY PRN PRN Reason: Constipation Melatonin (Melatonin 3 Mg Tablet) 6 mg PO BEDTIME PRN PRN Reason: Insomnia Naloxone HCl (Naloxone Hcl 0.4 Mg/Ml Vial) 0.04 mg IVPUSH Q5M PRN PRN Reason: Excessive sedation or RR < 8 Non-Formulary Medication (Semaglutide) 1 mg SUBCUT Q7D [facility] Ondansetron HCl (Ondansetron Hcl 4 Mg/2 Ml Vial) 4 mg IVPUSH Q8H PRN PRN Reason: Nausea and Vomiting Oxycodone HCl (Oxycodone Hcl Er 10 Mg Tab.Er.12h) 10 mg PO BID [facility] Last Admin: 04/10/24 12:49 Dose: 10 mg Oxycodone HCl (Oxycodone Hcl Immed Release 5 Mg Tablet) 5 mg PO Q4H PRN PRN Reason: Pain, Moderate(Pain Scale 4-6) Last Admin: 04/10/24 12:48 Dose: 5 mg Sodium Chloride (0.9 % Sodium Chloride Flush 3 Ml Syringe) [facility] Medications ?Medication ?Instructions ?Recorded ?Confirmed ?Last Taken ?Type aspirin 81 mg tablet,delayed 81 mg PO QAM 05/28/22 04/10/24 04/03/24 History release (Adult Low Dose Aspirin) atorvastatin 80 mg tablet 40 mg PO QAM 05/28/22 04/10/24 04/09/24 History empagliflozin 10 mg tablet 10 mg PO QAM 05/28/22 04/10/24 04/06/24 History hydrochlorothiazide 12.5 mg tablet 12.5 mg PO QAM 05/28/22 04/10/24 04/09/24 History lisinopril 5 mg tablet 5 mg PO QAM 05/28/22 04/10/24 04/09/24 History bupropion HCl 150 mg 24 hr tablet, 150 mg PO QAM 08/28/23 04/10/24 04/09/24 History extended release loratadine 10 mg tablet (Allergy 10 mg PO QAM PRN allergies 08/28/23 04/10/24 04/09/24 History Relief (loratadine)) metformin 500 mg tablet 1,000 mg PO QAM 08/28/23 04/10/24 04/06/24 History semaglutide 1 mg/dose (4 mg/3 mL) 1 mg subcut QWEEK 03/28/24 04/10/24 03/28/24 History subcutaneous pen injector Physical Exam 2 Vital Signs and Narrative: Vital Signs: Last Vital Signs Temp 97.7 F 04/10/24 12:19 Pulse 88 04/10/24 12:19 Resp 16 04/10/24 12:19 BP 143/65 H 04/10/24 12:19 Pulse Ox 95 04/10/24 12:19 O2 Del Method Nasal Cannula 04/10/24 12:19 O2 Flow Rate 2 04/10/24 12:19 BMI result Body Mass Index 29.1 General: AOx3, no acute distress Resp: CTA bilaterally CVS: S1, S2, RRR GI: +BS, NT, no distention Skin: Warm, dry Neuro: Cranial nerves II-XII grossly intact bilaterally. Motor grossly intact bilaterally Extremities: No edema. Right knee nontender, with clean dressing in place Psych: Appropriate affect Results Labs 04/10/24 06:49 Labs: Laboratory Results - last 24 hr 04/10/24 07:49 POC Glucose 162 H Imaging Radiologist's Impressions: Impressions Knee X-Ray 04/10/24 10:35 IMPRESSION: Expected postoperative appearance of the right knee following total knee arthroplasty. Electronically signed by: Germaine Guthrie DO 04/10/2024 12:37 PM EST Assessment and Plan (1) Status post total right knee replacement: Status: Acute Plan Patient is a 58-year-old with a PMH significant for HTN, HLD, yyo-jkiellj-mdqphzcyw type 2 diabetes, peripheral neuropathy, and ARLETH w/Inspire device in place who was admitted to the hospital under orthopedic services for right TKA. POD 0. Hospitalist consult for medical management. Status post right TKA, POD 0 Pain well controlled, not yet OOB Plan as per Orthopedics Bmf-vcpdtxv-vgzhxranl type 2 diabetes Well-controlled Continue Jardiance, metformin Will place on sliding scale coverage Diabetic diet HTN Continue hydrochlorothiazide, lisinopril HLD Continue statin ARLETH Inspire device in place Thank you for allowing us to participate in the care of this patient. Medical management complete. Signing off at this time. Please re-consult if any acute complaints or issues arise.
[2024-04-10] MEDS: HYDROmorphone HCl 0.5 MG/0.5 ML SYRINGE 0.25 MG IVPUSH ×2 (15:59→20:23)
[2024-04-10 16:11] LABS: Glucose, Whole Blood 228 mg/dL (60-115)
[2024-04-10] MEDS: Insulin Lispro 100 UNIT/ML 3 ML VIAL SUBCUT (17:36)
--- NOTE | 2024-04-10 19:08 | PHA.MEDREC ---
Addendum entered by Giuseppe Nesbitt 04/10/24 20:15: reviewed Original Note: Pharmacy Consult ? Medication Reconciliation Pharmacy reviewed med rec done by nursing. Morning Med Rec Tech spoke with patient and he confirmed all the medications on the list and stated he is a [place] resident. Morning Tech had questions about patients Ozempic and we both tried [facility] multiple times this morning with no luck on getting a list by 5pm, I called and got a list faxed over around 1800 and confirmed medications on list.Med list mostly matched med list, Metformin directions different on med rec and added some Sildenafil 100mg and Albuterol Inhaler. [facility] Ozempic 1mg/0.75mL is written inject 1mg once a week and doesn't state what day, my partner stated the patient confirmed he takes it on and the last time he had the injection was 03/28. Patient confirmed he is taking his Metformin 500mg tab 2 tabs daily and [facility] list [facility] it states he is taking it 1 tab BID. He confirmed with my partner that he last took his Aspirin 81mg tab 2 weeks ago and the rest of his medications 3 days ago.
[2024-04-10 20:28] LABS: Glucose, Whole Blood 146 mg/dL (60-115)
[2024-04-11] MEDS: oxyCODONE HCl Immed Release 5 MG TABLET PO ×2 (00:08→04:40)
[2024-04-11 03:31] VITALS: BP 116/63; PULSE 93; RESP 20; TEMP 36.7; O2SAT 93
[2024-04-11] MEDS: Acetaminophen 325 MG TABLET 650 MG PO (04:40)
[2024-04-11 07:31] LABS: MANUAL DIFF FLAG NO
[2024-04-11 07:35] VITALS: BP 121/65; PULSE 85; RESP 18; TEMP 36.8; O2SAT 97
[2024-04-11 07:37] LABS: Basophils Percent Auto 0.1 % (0-2); Eosinophils Percent Auto 0.3 % (0-4); Hematocrit 37.1 % (42.0-52.0); Hemoglobin 12.7 g/dl (14.0-18.0); Imm Gran Abs Auto 0.04 X10*3/uL (0.00-0.03); Imm Gran Pct Auto 0.5 % (0.0-0.4); Lymphocytes Absolute Auto 0.9 X10*3/uL (1.2-4.9); Lymphocytes Percent Auto 10.3 % (20-40); Mean Corpuscular HGB Conc 34.2 g/dl (31.0-36.0); Mean Corpuscular Hemoglobin 31.7 pg (27.0-33.0); Mean Corpuscular Volume 92.5 fL (80.0-98.0); Mean Platelet Volume 10.9 fL (9.4-12.4); Monocytes Absolute Auto 1.2 X10*3/uL (0.1-1.2); Monocytes Percent Auto 13.3 % (2-11); Neutrophils Absolute Auto 6.7 x10*3/uL (2.0-8.3); Neutrophils Percent Auto 75.5 % (45-73); Platelet Count 190 X10*3/uL (160-400); Red Blood Count 4.01 X10*6/uL (4.60-5.80); Red Cell Distribution Width 12.8 % (11.0-16.0); White Blood Count 8.8 X10*3/uL (4.8-10.8)
[2024-04-11 07:46] LABS: Glucose, Whole Blood 139 mg/dL (60-115)
[2024-04-11 07:50] LABS: Anion Gap 15 (12-20); Blood Urea Nitrogen 21 mg/dL (9-16); Calcium 9.5 mg/dL (8.4-10.2); Carbon Dioxide 26 mmol/L (22-29); Chloride 99 mmol/L (96-108); Creatinine Clr Calc Pharmacy 124.4; Estimated Glomerular Filt Rate > 60; Glucose Fasting 140 mg/dL (60-99); Potassium 3.7 mmol/L (3.3-5.1); Sodium 136 mmol/L (135-145)
[2024-04-11] MEDS: Celecoxib 200 MG CAPSULE PO (08:17)
[2024-04-11] MEDS: buPROPion HCl XL 150 MG TAB.ER.24H PO (08:17)
[2024-04-11] MEDS: Docusate Sodium 100 MG CAPSULE PO (08:17)
[2024-04-11] MEDS: metFORMIN HCl 1,000 MG TABLET 1000 MG PO (08:18)
[2024-04-11] MEDS: oxyCODONE HCl ER 10 MG TAB.ER.12H PO (08:19)
[2024-04-11] MEDS: hydroCHLOROthiazide 12.5 MG TABLET PO (08:20)
[2024-04-11] MEDS: lisinopriL 5 MG TABLET PO (08:21)
[2024-04-11] MEDS: Atorvastatin Calcium 40 MG TABLET PO (08:21)
[2024-04-11] MEDS: Empagliflozin 10 MG TABLET PO (08:21)
--- NOTE | 2024-04-11 08:23 | HO.POSTANES ---
Post Anesthesia Evaluation Post Anesthesia Evaluation Date of Service: 04/11/24 Vital Signs: Vital Signs Temp Pulse Resp BP Pulse Ox O2 Del Method 04/11/24 07:35 98.2 F 85 18 121/65 97 Room Air 04/11/24 03:31 98.1 F 93 20 116/63 93 Room Air Anesthesia: Regional and General Endotracheal-GETA Mental Status: Awake Pain Control: Satisfactory Nausea/Vomiting: None Hydration: Adequate Anesthesia-Related Issues: No Anes. Related Issues
[2024-04-11] MEDS: 0.9 % Sodium Chloride Flush 3 ML SYRINGE IVFLUSH (08:24)
[2024-04-11 08:52] VITALS: O2SAT 98
--- NOTE | 2024-04-11 09:02 | P.DS_ITS ---
DS: Providers Provider Date of Service: 04/11/24 Primary care physician: Sara Infante MD Consults: 04/10/24 12:07 Consult to Hospitalist Routine Comment: Consulting Provider: Hospitalist Reason For Exam: Routine medical management DS: Diagnosis Discharge Diagnosis (1) Status post total right knee replacement: Status: Acute DS: Summary Hospital Course Hospital Course: The patient underwent a successful right otal knee arthroplasty on 04/10/24, was transferred to PACU and then to the floor to recover. During their stay, their vitals were stable, afebrile at . Labs were unremarkable, H/H 12.7/37.1. POD 1 he was started on ASA 325mg tabs po bid for DVT ppx, they also received Physical Therapy services twice a day. Physical therapy should include gait training, ROM to tolerance and quad strength. He is WBAT. Prior to discharge, his dressing was clean dry and intact. The Aquacel dressing should remain intact and dry at all times. Any concerns with the dressing, please contact orthopedic office. No showering. The plan is to be discharged home home with [facility]NA services Time Attestation Discharge Coordination Time (in mins): 30 Quality: Safe Use of Opioids Does Pt have an Active Cancer Diagnosis on the Problem List?: No Quality: Stroke Does the patient have a stroke diagnosis?: No Physical Exam Vital Signs: Vital Signs: Last Vital Signs Temp 98.2 F 04/11/24 07:35 Pulse 85 04/11/24 07:35 Resp 18 04/11/24 07:35 BP 121/65 04/11/24 07:35 Pulse Ox 97 04/11/24 07:35 O2 Del Method Room Air 04/11/24 07:35 O2 Flow Rate 2 04/10/24 12:19 BMI result Body Mass Index 29.1 Const: General: cooperative, healthy appearing and no acute distress Orientation/consciousness: patient oriented x3 HEENT: Head: Yes normal to inspection, Yes normocephalic and Yes atraumatic Eyes: General: appearance normal, both eyes and all related structures Neck: Neck: Yes normal visual inspection and Yes no lymphadenopathy Resp: Effort & Inspection: normal respiratory effort and able to speak in complete sentences Cardio: Rate: regular rate Peripheral pulses: Peripheral pulses 2+ throughout GI: Inspection: Yes normal to inspection Palpation (GI): Soft to palpation Skin: General skin exam: no rashes or lesions noted Neuro: General: patient oriented x3 Extrem: Other: Tenderness to palpation medial compartment right knee Varus alignment bilaterally right greater than left 1+ varus instability right knee Right knee skin intact Psych: Mental Status: mental status grossly normal DS: Data Data Completed and Pending Pending studies at discharge: Pending at discharge 04/10/24 08:59 Surgical [PTH] Routine Labs on day of discharge: Laboratory Results - last 24 hr 04/10/24 04/10/24 04/11/24 16:07 20:11 05:53 WBC 8.8 RBC 4.01 L Hgb 12.7 L Hct 37.1 L MCV 92.5 MCH 31.7 MCHC 34.2 RDW 12.8 Plt Count 190 MPV 10.9 Immature Gran % (Auto) 0.5 H Neut % (Auto) 75.5 H Lymph % (Auto) 10.3 L Wilkes % (Auto) 13.3 H Eos % (Auto) 0.3 Baso % (Auto) 0.1 Lymph # (Auto) 0.9 L Wilkes # (Auto) 1.2 Eos # (Auto) 0.0 Baso # (Auto) 0.0 Abs Immat Gran (auto) 0.04 H Absolute Neuts (auto) 6.7 Absolute Nucleated RBC 0.000 Nucleated RBC % (auto) 0.0 Sodium 136 Potassium 3.7 Chloride 99 Carbon Dioxide 26 Anion Gap 15 BUN 21 H Creatinine 0.83 Estim Creat Clear Calc 124.4 Estimated GFR > 60 POC Glucose 228 H 146 H Fasting Glucose 140 H Calcium 9.5 04/11/24 07:40 WBC RBC Hgb Hct MCV MCH MCHC RDW Plt Count MPV Immature Gran % (Auto) Neut % (Auto) Lymph % (Auto) Wilkes % (Auto) Eos % (Auto) Baso % (Auto) Lymph # (Auto) Wilkes # (Auto) Eos # (Auto) Baso # (Auto) Abs Immat Gran (auto) Absolute Neuts (auto) Absolute Nucleated RBC Nucleated RBC % (auto) Sodium Potassium Chloride Carbon Dioxide Anion Gap BUN Creatinine Estim Creat Clear Calc Estimated GFR POC Glucose 139 H Fasting Glucose Calcium Discharge Plan Discharge Patient Disposition: Home Health Service Referrals: [facility] [Outside] - 1 Day ([facility] will call you to schedule home PT appointments.) Carlee Mcgovern PA-C [Physician Test Pilot] - 2 Weeks (04/29/24 10:00 [facility] [place] [facility] [place] [facility] Carlee Mcgovern PA-C) Discharge Medications: New docusate sodium 100 mg Capsule 100 mg PO BID 7 Days Qty: 14 0RF celecoxib 200 mg Capsule 200 mg PO BID 30 Days Qty: 60 0RF aspirin 325 mg Tablet 325 mg PO BID 42 Days Qty: 84 0RF oxycodone 5 mg Tablet 5 mg PO Q4H PRN (Reason: Pain, Moderate(Pain Scale 4-6)) 7 Days Qty: 42 0RF Rx Instructions: Partial Fill upon patient request. acetaminophen 325 mg Tablet 650 mg PO Q6H PRN (Reason: Pain, Mild (Pain Scale 1-3), fever or headache) 30 Days Qty: 240 0RF Continued (DME) Medial unloading brace, right See Rx Instructions .Route .MEDSUPPLY Qty: 1 0RF Rx Instructions: As directed (DME) walker [facility] [place] See Rx Instructions .ROUTE .MEDSUPPLY Qty: 1 0RF Rx Instructions: Folding front wheeled walker semaglutide 1 mg/dose (4 mg/3 mL) Pen Injector 1 mg SUBCUT QWEEK Rx Instructions: takes on sildenafil 100 mg Tablet 100 mg PO DAILY PRN (Reason: Sexual Activity) Rx Instructions: administer 30 minutes to 4 hours before activity albuterol sulfate 90 mcg/actuation Hfa Aerosol Inhaler 2 puff INHALATION Q4H PRN (Reason: Wheezing/SOB) hydrochlorothiazide 12.5 mg tablet 12.5 mg PO DAILY atorvastatin 80 mg tablet 40 mg PO DAILY lisinopril 5 mg tablet 5 mg PO DAILY empagliflozin 10 mg tablet 10 mg PO DAILY metformin 500 mg tablet 500 mg PO BID loratadine [Allergy Relief (loratadine)] 10 mg tablet 10 mg PO DAILY PRN (Reason: allergies) bupropion HCl 150 mg tablet extended release 24 hr 150 mg PO DAILY Discontinued aspirin [Adult Low Dose Aspirin] 81 mg tablet,delayed release (DR/EC) 81 mg PO DAILY Diet: Regular diet Activity on Discharge: Use cane or walker Activity Restrictions/Additional Instructions: Physical Therapy for Total knee arthroplasty: WBAT, gait training, ROM 0-12, quad strength * Limit stair climbing * No showering, no tub bath-keep dressing clean, dry and intact * No driving x6 weeks * Continue Aspirin twice a day x 6 weeks * Follow up with [facility] [place] [place]ics in 2 weeks: Print Language: Amharic
--- NOTE | 2024-04-11 09:09 | P.F2F_ITS ---
Service Date Service Date: 04/11/24 Encounter Date of encounter: 04/11/24 Reasons for Services Signs and symptoms assessed: Weakness, poor balance, poor gait mechanics Reason for physical therapy: home safety and mobility, therapeutic exercises, restore joint function, gait/transfer training, ADL training and energy conservation Reason for occupational therapy: home safety and mobility, therapeutic exercises, restore joint function, gait/transfer training, ADL training and energy conservation Overseeing Care: Constantine Fritz Homebound: Leaving the home is medically contraindicated at this time without the asist of a device and/or another person due th the listed conditions above and below. Reason homebound: unsteady gait / fall risk, pain with ambulation, poor balance / fall risk and unable to drive Homebound supporting statement: Pt. is considered home bound due to recent surgery. Unable to drive, poor balance, poor gait mechanics. Certification: Based on the above findings, I certify that this patient is confined to the home and needs intermittent long-term care, physical therapy and/or speech therapy, or continues to need occupational therapy. The patient is under my care, and I have initiated the establishment of the plan of care. The patient will be followed by a physician who will periodically review the plan of care. Time Spent With Patient Time: Total time managing care of this patient today ____ minutes.
--- NOTE | 2024-04-11 09:56 | MHC.CM.PN ---
Patient lives at home w/ his . Functionally independent [employer]. Denies use of DME or services. Has purchased a cane and walker to use post op. PCP Sara Infante Reports he has an HCP naming his as [facility]. DP: Home w/ [facility] for PT/OT. Per Selena at [facility] this is authorized. to transport. Likely dc later today. CM will continue to follow.
--- NOTE | 2024-04-11 11:15 | PC.NURSE ---
pt discharged home with a walker provided by hospital.
[2024-04-11 11:27] LABS: Estimated Glomerular Filt Rate > 60
== END 2024-04-11 11:26 | disposition home health service (06) ==
LOC: HO.SSS 08:35 → HO.S3 11:28
PROVIDERS: Orthopaedic Surgery; Student in an Organized Health Care Education/Training Program; Absent Provider Physician Assistant; PCP Internal Medicine; Visit Provider Physician Assistant
PROC: (CPT 27447; principal; 2024-04-10 08:30)
DX: M17.11 Unilateral primary osteoarthritis, right knee (principal); R53.1 Weakness; R26.89 Other abnormalities of gait and mobility; R26.81 Unsteadiness on feet; I10 Essential (primary) hypertension; E78.5 Hyperlipidemia, unspecified; E11.9 Type 2 diabetes mellitus without complications; F41.8 Other specified anxiety disorders; G47.33 Obstructive sleep apnea (adult) (pediatric); Z96.82 Presence of neurostimulator; Z79.82 Long term (current) use of aspirin; Z79.84 Long term (current) use of oral hypoglycemic drugs; Z79.85 Long-term (current) use of injectable non-insulin antidiabetic drugs; Z79.899 Other long term (current) drug therapy; Z98.890 Other specified postprocedural states
CPT/HCPCS: 27447; 36415; 73560; 80048; 82565; 82947; 85014; 85018; 85025; 86850; 86900; 86901; 87640; 87641; 88304; 88305; 88311; 97110; 97116; 97161; 97530; C1776; J0131; J0690; J1100; J1171; J2003; J2250; J2405; J2704; J2795; J3010; J7120

== ENCOUNTER → 2024-04-10 06:39 | Outpatient (BNV) | payer OTHER, SELFPAY | PROVIDERS: Absent Provider Physician Assistant; PCP Internal Medicine; Visit Provider Student in an Organized Health Care Education/Training Program | DX: E11.9 Type 2 diabetes mellitus without complications (principal); Z96.651 Presence of right artificial knee joint | CPT/HCPCS: 99203 ==

== ENCOUNTER → 2024-04-10 06:39 | Outpatient (BNV) | payer OTHER, SELFPAY | PROVIDERS: Absent Provider Physician Assistant; PCP Internal Medicine; Visit Provider Orthopaedic Surgery | DX: Z47.1 Aftercare following joint replacement surgery (principal); Z96.651 Presence of right artificial knee joint | CPT/HCPCS: 27447; 99024; G0180 ==

== ENCOUNTER 2024-04-29 10:01 | Outpatient (AMB) | payer OTHER, SELFPAY ==
--- NOTE | 2024-04-29 10:03 | A.OFFVIS_ITS ---
Intake Visit Reasons: Pt/2WK PO: R TKA w/NE 04/10/24 Intake Note: Jeff a 58 year old male who presents today for a post operative RT TKA, DOS: 04/10/24 NE. Patient reports he is having stiffness in his knee. He mentions when he is laying down he feels like the knee is moving out of the joint. Patient states he also hears a clicking sound when he is walking. Allergies No Known Allergies Allergy (Verified 04/29/24 10:07) Medication List - Last Reconciled 04/29/24 by Carlee Mcgovern PA-C acetaminophen 650 mg (2 x 325 mg) PO Q6H PRN 30 days albuterol sulfate 90 mcg/actuation 2 puffs inhalation Q4H PRN aspirin 325 mg PO BID 42 days atorvastatin 40 mg PO DAILY bupropion HCl XL 150 mg PO DAILY celecoxib 200 mg PO BID 30 days docusate sodium 100 mg PO BID 7 days empagliflozin 10 mg PO DAILY hydrochlorothiazide 12.5 mg PO DAILY lisinopril 5 mg PO DAILY loratadine (Allergy Relief (loratadine)) 10 mg PO DAILY PRN [Medial unloading brace, right As directed] metformin 500 mg PO BID oxycodone 10 mg PO Q4-6H PRN 7 days semaglutide 1 mg subcut QWEEK sildenafil 100 mg PO DAILY PRN walker Folding front wheeled walker walker Folding front wheeled walker HPI HPI Pt/2WK PO: R TKA w/NE 04/10/24: Details: 58-year-old male who returns to the office today for post-op right TKA, 04/10/[address] Fritz. He continues to have random episodes of pain as well as stiffness and swelling in his knee. His pain is aggravated at night and he has throbbing pain in his knee in the mornings. He also experiences a ?shocking? pain with getting in the car and hears a clicking sound with ambulation. He feels like his knee will move out of the joint with laying down. He has completed home physical therapy for his knee that provided him relief. He takes oxycodone PRN. [facility] Medical History ARLETH (obstructive sleep apnea) Anxiety and depression Diabetes HLD (hyperlipidemia) HTN (hypertension) Internal derangement of left knee Surgical History H/O colonoscopy S/P placement of nerve stimulator Hx of arthroscopic knee surgery Hx of hernia repair Social History Household Members: Spouse Housing: House Are you a primary hemodialysis patient care specialist to a significant other at home: No Do you presently have visiting nurse or other home services: No Alcohol intake: never Comment: medicated with Vicodin Patient Tobacco Use Status: Never used Tobacco Tobacco use type: Cigar service: No Current occupational status: retired Current occupation: rt hand dominant Review of Systems Const All systems reviewed & are unremarkable except as noted in HPI and below Physical Exam Extrem Other: Right knee: Incision clean, dry and intact. No redness or drainage. ROM is 0- 105degrees. Calf supple, nontender. NVI. Assessment & Plan Assessment & Plan (1) Status post total right knee replacement: Code(s): Z96.651 - Presence of right artificial knee joint Category: Surgical Plan Devyn removed, steri strips applied. He will begin to transition to Outpatient PT to continue working on Gait training, ROM and quad strength. He is starting outpatient physical therapy tomorrow. He will require ppx abx for dental procedures. He will f/u in 4 weeks, sooner if needed. Medications: Changed From oxycodone Partial Fill upon patient request. 10 mg PO Q4-6H 7 days PRN 42 tabs 0RF Pain, Moderate(Pain Scale 4-6) To oxycodone Partial Fill upon patient request. 5 mg PO Q6H PRN 28 tabs 0RF Pain, Moderate(Pain Scale 4-6) 7 days Patient Instructions: Scribed for Carlee Mcgovern PA-C, by Spenser Hwang medical laboratory technician, on 04/29/2024 at 10:00 AM EST.? I, Carlee Mcgovern PA-C, have personally reviewed and agree with the information entered by the scribe. Coding Level of Care Code Global (84692) Diagnoses Status post total right knee replacement Z96.651
== END 2024-04-29 10:37 | disposition home or self-care (01) ==
PROVIDERS: PCP Internal Medicine; Visit Provider Physician Assistant
DX: Z96.651 Presence of right artificial knee joint (principal)
CPT/HCPCS: 99024

== ENCOUNTER → 2024-04-29 10:01 | Outpatient (BNVA) | payer OTHER, SELFPAY | PROVIDERS: PCP Internal Medicine; Visit Provider Physician Assistant | DX: M25.661 Stiffness of right knee, not elsewhere classified (principal); Z47.1 Aftercare following joint replacement surgery; Z96.651 Presence of right artificial knee joint; Z79.891 Long term (current) use of opiate analgesic | CPT/HCPCS: 99212 ==

== ENCOUNTER 2024-05-30 09:00 | Outpatient (RCR) | payer OTHER, SELFPAY ==
--- NOTE | 2024-04-30 08:42 | MHC.PT.EP ---
[facility] [place] Office [place] Office [place] Office [address] Vipul Malloy [address] [phone] F: [phone] F: [phone] F: [phone] F: [phone] Physical Therapy Plan of Care Date of Evaluation: 04/30/24 Date of Surgery: 04/10/2024 Diagnosis: s/p R TKA 04/10 Assessment: Patient is a 58 year old male presenting to PT s/p R TKA 04/10/2024. He presents today with impairments in pain, ROM, knee strength, hip strength. 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 Pt expresses penitentiary goal of returning to PLOF, and is motivated to work towards this in PT. Clinical presentation today is most consistent with signs and sx associated with s/p R TKA 04/10 and pt will benefit from skilled PT 2 week x 4 weeks to address the following problems and impairments noted upon evaluation: pain, ROM, knee strength, hip strength. These problems limit the patient with the following functional activities: ambulating, stair negotiation, ADLs, work. The prescribed treatment plan of care is medically necessary. Co-morbidities of DM were identified and taken into considerations of plan of care. Pt was educated on HEP, role of PT, prognosis, POC. Frequency and Duration: The patient will be seen 2 x week x 4 weeks Short Term Goals: Pt will demonstrate R knee ROM to 120 in 2 weeks. Pt will demonstrate R knee MMT strength to at least 4-/5 in 2 weeks. Pt will demonstrate hip MMT strength to at least 4/5 in 2 weeks. Intermediate Goals: Pt will demonstrate improved LEFI score by 9 points in 4 weeks for improved functional mobility. Pt will demonstrate ability to ambulate with no AD and good mechanics in 4 weeks for return to PLOF. Pt will demonstrate ability to negotiate stairs step over step with min to no pain or compensatory pattern in 4 weeks for improved access to his home. Treatment Plan: Modalities to reduce pain, spasms and effusion. Manual therapy to restore motion and function. Therapeutic exercise to improve strength and flexibility. Neuromuscular re-education for posture and balance. Therapeutic activities to return to functional activities of daily living. Electronically signed by: Adela Altamirano, PT, DPT, ATC Please sign and return to therapist. Thank you for your referral.
--- NOTE | 2024-07-01 08:34 | MHC.PT.DC ---
[facility] [place] Office [place] Office [place] Office [address] [phone] F: [phone] F: [phone] F: [phone] F: [phone] Physical Therapy Discharge Report Diagnosis: s/p R TKA 04/10 Date of Surgery: 04/10/2024 Date of Evaluation: 04/30/24 Date of Discharge: 07/01/24 Treatments to Date: 9 Cancellations to Date: 4 No Shows to Date: 0 Discharge Status: Discharge Summary: Pt has not attended skilled PT in >30 days and therefore to be d/c per policy. Electronically signed by: Adela Altamirano, PT, DPT, ATC Please sign and return to therapist. Thank you for your referral.
== END 2024-07-01 08:34 | disposition home or self-care (01) ==
LOC: HO.PTCHIC 09:00
PROVIDERS: PCP Internal Medicine; Visit Provider Physician Assistant
DX: Z96.651 Presence of right artificial knee joint (principal)
CPT/HCPCS: 97110; 97140; 97161; 97530

== ENCOUNTER 2024-06-03 08:40 | Outpatient (REF) | payer OTHER, SELFPAY ==
--- NOTE | ~2024-06-03 | XR_ITS ---
EXAMINATION: XR KNEE, LEFT CLINICAL INFORMATION: M25.569 - Pain in unspecified knee COMPARISON: X-ray dated April 04, 2024. TECHNIQUE: Single view of the left knee. FINDINGS: Joint space narrowing involving the medial and lateral compartment. Sclerosis and the medial tibial plateau. No acute cortical disruption or gross malalignment. Limited examination. Total Metallic prosthesis, right knee. 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 Electronically signed by: Chevy Perdomo MD 06/06/2024 07:26 AM EST
--- NOTE | ~2024-06-03 | XR_ITS ---
EXAMINATION: XR KNEE, RIGHT CLINICAL INFORMATION: M25.561 - Pain in right knee COMPARISON: X-ray dated April 10, 2024 TECHNIQUE: Two views of the right knee. FINDINGS: Metallic prosthesis with a femoral and the tibial component well-seated in the osseous femur and posterior tibial plateau. There is a metallic prosthesis in the posterior patella. No loosening. No malalignment. No acute cortical disruption. Vascular calcifications. XR/XR knee RT 3V IMPRESSION: Total right knee arthroplasty without acute fracture or dislocation or loosening. Atherosclerosis disease, peripheral. Electronically signed by: Chevy Perdomo MD 06/06/2024 07:28 AM EDUARD
--- OUTSIDE RECORDS SUMMARY | 2024-06-03 08:56 | XMS_ITS | Encounter Summary ---
Author Name [place] Address [address] [place] [address] Care Team Providers Care Dietist Name Role Phone ARIEL JIMENEZ Primary Care Provider Ismael patel Insurance Providers: All historical and current Section Date Range: From patient's date of to the date document was created. This section includes the names of all active insurance providers for the patient. Insurance Provider Type of Coverage Plan Name Start of Policy Coverage End of Policy Coverage Group Number Member ID Insurance Provider's Telephone Number Policy Parra's Name Patient's Relationship to Policy Parra [facility] Dec 19, 2015 [id number] [employer] PATIENT [facility] Dec 19, 2015 [id number] [employer]AKES[employer] PATIENT [facility] May 29, 2012 [id number] [employer] PATIENT Selected Encounter This section includes the information on record at [place] for the Encounter. Date/Time Encounter Type Encounter Description Reason Provider Source Jul 11, 2023 01:30 PM Outpatient Encounter TELEPHONE/MEDICIN E ICD-10-CM G47.33 Obstructive sleep apnea (adult) (pediatric) LEANNA SORIANO Sammy Encounter Template Text not used by [place] Assessments - Encounter Diagnoses This section includes the primary and secondary diagnoses documented for the Encounter. Date/Time Primary/Secondary Diagnosis Diagnosis Name Provider Source Jul 11, 2023 01:30 PM PRIMARY Obstructive sleep apnea (adult) (pediatric) LEANNA SORIANO Plan of Treatment: Future Appointments (+ 6 months) and Future Tests (+/- 45 days) The Plan of Treatment section includes future care activities for the patient from all [place] treatmentfacilities. This section includes future appointments and future orders which are active, pending or scheduled. Future Appointments This section includes appointments that were scheduled to occur 6 months from the date of the Encounter, up to a maximum of 20 appointments. The data comes from all [place] treatment facilities. Appointment Date/Time Appointment Type Appointme nt Facility Name Jul 25, 2023 01:00 PM AMBULAT[facility] [place] [facility] Aug 09, 2023 08:30 AM AMBULATORY - PSYCHIATRY [facility] Aug 18, 2023 09:00 AM AMBULATORY - [facility]ICIN [facility] [place] [facility] Aug 24, 2023 09:00 AM AMBULATORY - [facility]HAB MEDICIN E [facility] [place] [facility] Aug 28, 2023 08:45 AM AM[facility]ULATORY [facility] MEDICINE [facility] [place] [facility] Aug 29, 2023 10:43 AM AM[facility] MEDICINE [facility] Sep 22, 2023 07:30 AM AMBULATORY - REHAB MEDICIN E [facility] [place] [facility] September 27, 2023 10:00 AM AMBULATORY - MEDICINE [facility] [place] [facility] October 18, 2023 03:30 PM AMBULATORY - REHAB MEDICIN E [facility] [place] [facility] October 26, 2023 02:00 PM AMBULATORY - MEDICINE [facility] Nov 09, 2023 08:30 AM AMBULATORY - PSYCHIATRY [facility] Lab Results: +/- 30 days of the encounter This section includes the Chemistry and Hematology Lab Results on record with [place] for the patient. Radiology Reports and Pathology Reports are provided separately, in subsequent sections. Lab Results This section contains the Chemistry/Hematology Results that were resulted 30 days before or 30 daysafter the date of the Encounter. Date/Time Source Result Type Result - Unit Interpretation Reference Range Comment Jun 22, 2023 10:28 AM [facility] LIVER FUNCTION Specimen Type: SERUM No comment entered. Ordering Provider: ARIEL JIMENEZ Report Released Date/Time: Jun 22, 2023 09:13 AM Reporting Lab: [facility] [address] [facility] [address] Performing Lab: [address] [address] PROTEIN,TOTAL 7.2 g/dL 6.0-8.3 ALBUMIN 4.6 g/dL 3.5-5.0 ALKALINE PHOSPHATASE 40 U/L 40-150 AST 26 U/L 5-34 ALT 37 U/L BILIRUBIN, TOTAL 0.8 mg/dL 0.2-1.2 Jun 22, 2023 10:28 AM [facility] CBC Specimen Type: BLOOD No comment entered. Ordering Provider: ARIEL JIMENEZ Report Released Date/Time: Jun 22, 2023 09:13 AM Reporting Lab: [facility] [address] [facility] [address] Performing Lab: [address] [address] WBC 6.16 10*3/uL 4.50-11.00 RBC 5.11 10*6/uL 4.23-5.66 HGB 15.9 g/dL 12.8-17 HCT 47.1 39.2-50.4 MCV 92.2 fL 82-99 MCHC 33.8 g/dL 30.8-35.1 PLT 193 10*3/uL 140-360 RDW-CV 12.4 12.0-16.0 MCH 31.1 pg 26.2-32.6 Jun 22, 2023 10:28 AM [facility] HEMOGLOBIN A1C PANEL Specimen Type: BLOOD Comment: Values obtained from A1C measurements can vary. For atypical A1C assays, a reported value of 7.0 could actually be between 6.72 and 7.28 if measured by a reference method. A reported value of 9.0 could actually be between 8.73 and 9.27. Ref: http://www.[facility] p.org/CAPdata. asp Ordering Provider: ARIEL JIMENEZ Report Released Date/Time: Jun 22, 2023 09:13 AM Reporting Lab: [facility] [address] [facility] [address] Performing Lab: [facility] [address] [facility] [address] HEMOGLOBIN A1C 5.7 H 4.0-5.6 Jun 22, 2023 10:28 AM [facility] BASIC METABOLIC PANEL (fasting) Specimen Type: SERUM No comment entered. Ordering Provider: ARIEL JIMENEZ Report Released Date/Time: Jun 22, 2023 09:13 AM Reporting Lab: [facility] [address] [facility] [address] Performing Lab: [address] [address] UREA NITROGEN 23 mg/dL 7-25 GLUCOSE 123 mg/dL H 65-100 SODIUM 139 mmol/L 135-145 POTASSIUM 4.5 mmol/L 3.5-5.0 CHLORIDE 102 mmol/L 100-110 CO2 29 meq/L 20-30 CREATININE, Serum 0.81 mg/dL 0.50-1.40 eGFR(CKD-EPI 2020) >90 mL/min >60 Jun 22, 2023 10:28 AM [facility] PSA Specimen Type: SERUM No comment entered. Ordering Provider: ARIEL JIMENEZ Report Released Date/Time: Jun 22, 2023 09:13 AM Reporting Lab: [facility] [address] [facility] [address] Performing Lab: [address] [address] PSA 1.78 ng/mL 0.00-4.00 Jun 22, 2023 10:28 AM [facility] LIPID PANEL FASTING Specimen Type: SERUM No comment entered. Ordering Provider: ARIEL JIMENEZ Report Released Date/Time: Jun 22, 2023 09:13 AM Reporting Lab: [address] [place] [address] Performing Lab: [facility] [address] [facility] [address] CHOLESTEROL 144 mg/dL TRIGLYCERIDE 48 mg/dL 0-150 LDL calculated 70 mg/dL 0-129 CHOL/HDL 2.3 HDL CHOLESTEROL 64 mg/dL H 40-60 Advance Directives: All historical and current Section Date Range: From patient's date of to the date document was created. This section includes ALL of a patient's completed or amended [place] Advance and Rescinded Directives. The entries below indicate that a directive exists for the patient, but an actual copy is not included with this document. The data comes from all [place] facilities. Date Advance Directives Provider Source Jun 29, 2023 ADVANCE DIRECTIVE JAMES GALLO [facility] Sep 19, 2017 ADVANCE DIRECTIVE DINA MCGINNIS [facility] Encounter Notes: All associated encounter notes This section contains the clinical notes associated to the Encounter. Date/Time Encounter Note(s) Provider Source Jul 11, 2023 11:42 AM SLEEP MEDICINE CON SULT: LOCAL TITLE: SLEEP DISORDER INITIAL CONSULT NOTE STANDARD TITLE: SLEEP MEDICINE CONSULT DATE OF NOTE: JUL 11, 2023@11:42 ENTRY DATE: JUL 11, 2023@11:42:34 AUTHOR: LEANNA SORIANO EXP COSIGNER: URGENCY: STATUS: COMPLETED 57-year-old male was contacted utilizing telephone for reevaluation of sleep apnea syndrome management inspire hypoglossal nerve stimulation that was surgically implanted approximately 3 years ago. The patient had the device activated and is utilizing it nightly. However, he has reduce his body weight by approximately 65-70 pounds and preferred to be reevaluated. Sleep study data-2004: SEVERE Obstructive Sleep Apnea Syndrome: The patient has an overall Apnea Hypopnea Index (AHI) of 39.6/hr on this study as well as oxygen desaturations with a nadired saturation to 74%. The baseline saturation at the start of the study was 93%. The average oxygen saturation on room air was borderline low at 89.5% and the saturation <90% = 226.6 mins., 42.4% of total recording time. NOTE: Patient's ARLETH is significantly worse in supine position, Supine AHI was The supine AHI was 87.8/hr. Assessment/plan: 1. History of severe sleep apnea syndrome managed with inspire hypoglossal nerve stimulation. Given the patient's weight reduction of 65-70 pounds, he will undergo home sleep testing without utilizing inspire hypoglossal nerve stimulation to obtain a baseline. You will be contacted via telephone with the study findings are available for review. 15 minutes was utilized. /janine/ TRIP Guerra, Sleep Medicine Signed: 07/11/2023 11:45 LEANNA SORIANO
--- OUTSIDE RECORDS SUMMARY | 2024-06-03 08:56 | XMS_ITS | Encounter Summary ---
Author Name [facility] [place] Address [address] [place] [address] Care Team Providers Care Credit Negotiator Name Role Phone ARIEL JIMENEZ Primary Care [...] Parra's Name Patient's Relationship to Policy Parra [facility] Dec 19, 2015 [id number] [phone] TANA NGO PATIENT [facility] Dec 19, 2015 [id number] [phone] LAKESHA NGO [facility] May 29, 2012 [id number] [employer] PATIENT Selected Encounter This section includes the information on record at [place] for the Encounter. Date/Time Encounter Type Encounter Description Reason Provider Source Aug 29, 2023 10:43 AM HC PRO PHONE CALL 11-20 MIN ADMIN PAT ACTIVTIES (MASNONCT) ICD-10-CM G47.33 Obstructive sleep apnea (adult) (pediatric) TAHMINA PERSAUD E Encounter Template Text not used by [place] Assessments - Encounter Diagnoses This section includes the primary and secondary diagnoses documented for the Encounter. Date/Time Primary/Secondary Diagnosis Diagnosis Name Provider Source Aug 29, 2023 10:51 AM PRIMARY Obstructive sleep apnea (adult) (pediatric) TAHMINA PERSAUD [facility] Plan of Treatment: Future Appointments (+ 6 months) and Future Tests (+/- 45 days) The Plan of Treatment section includes future care activities for the patient from all [place] [facility]. This section includes future appointments and future orders which are active, pending or scheduled. Future Appointments This section includes appointments that were scheduled to occur 6 months from the date of the Encounter, up to a maximum of 20 appointments. The data comes from all [place] treatment facilities. Appointment Date/Time Appointment Type Appointme nt Facility Name Sep 22, 2023 07:30 AM AMBULATORY [place] [facility] [place] [facility] September 27, 2023 10:00 AM AMBULATORY - MEDICINE [facility] [facility] October 18, 2023 03:30 PM AMBULATORY - REHAB MEDICIN [place] [facility] [facility] October 26, 2023 02:00 PM AMBULATORY - MEDICINE [facility] Nov 09, 2023 08:30 AM AMBULATORY - PSYCHIATRY [facility] Feb 09, 2024 08:30 AM AMBULATORY - PSYCHIATRY [facility] Feb 12, 2024 01:30 PM AMBULATORY - NONE [place] [facility] [place] [facility] Feb 19, 2024 08:30 AM AMBULATORY - MEDICINE [facility] [facility] Feb 21, 2024 08:40 AM AMBULATORY - MEDICINE [facility] Lab Results: +/- 30 days of the encounter This section includes the Chemistry and Hematology Lab Results on record with [place] for the patient. Radiology Reports and Pathology Reports are provided separately, in subsequent sections. Lab Results This section contains the Chemistry/Hematology Results that were resulted 30 days before or 30 daysafter the date of the Encounter. Date/Time Source Result Type Result - Unit Interpretation Reference Range Comment Sep 21, 2023 07:50 AM [facility] HEMOGLOBIN A1C PANEL Specimen Type: BLOOD Comment: Values obtained from A1C measurements can vary. For atypical A1C assays, a reported value of 7.0 could actually be between 6.72 and 7.28 if measured by a reference method. A reported value of 9.0 could actually be between 8.73 and 9.27. Ref: http://www.ngs p.org/CAPdata. asp Ordering Provider: ARIEL JIMENEZ Report Released Date/Time: Jun 29, 2023 02:06 PM Reporting Lab: [facility] [address] [facility] [address] Performing Lab: [address] [address] HEMOGLOBIN A1C 5.9 H 4.0-5.6 Sep 21, 2023 07:50 AM [facility] TSH Specimen Type: SERUM No comment entered. Ordering Provider: ARIEL JIMENEZ Report Released Date/Time: Jun 29, 2023 02:06 PM Reporting Lab: [facility] [address] [facility] [address] Performing Lab: [address] [address] TSH 1.49 u[IU]/mL 0.35-5.00 Sep 21, 2023 07:50 AM [facility] MICROALBUMIN CREATININE RATIO PANEL Specimen Type: URINE No comment entered. Ordering Provider: ARIEL JIMENEZ Report Released Date/Time: Jun 29, 2023 02:06 PM Reporting Lab: [facility] [address] [facility] [address] Performing Lab: [address] [address] MICROALBUMIN/C REATININE RATIO 8.8 mg/g 0-29.9 MICROALBUMIN,Q UANTITATIVE 0.5 mg/dL RR UNAVAIL CREATININE URINE 56.63 mg/dL Sep 21, 2023 07:50 AM [facility] BASIC METABOLIC PANEL (fasting) Specimen Type: SERUM No comment entered. Ordering Provider: ARIEL JIMENEZ Report Released Date/Time: Jun 29, 2023 02:06 PM Reporting Lab: [facility] [address] [facility] [address] Performing Lab: [facility] [address] [facility] [address] UREA NITROGEN 19 mg/dL 7-25 GLUCOSE 113 mg/dL H 65-100 SODIUM 137 mmol/L 135-145 POTASSIUM 4.0 mmol/L 3.5-5.0 CHLORIDE 102 mmol/L 100-110 CO2 26 meq/L 20-30 CREATININE, Serum 0.79 mg/dL 0.50-1.40 eGFR(CKD-EPI 2020) >90 mL/min >60 Advance Directives: All historical and current Section Date Range: From patient's date of to the date document was created. This section includes ALL of a patient's completed or amended [place] Advance and Rescinded Directives. The entries below indicate that a directive exists for the patient, but an actual copy is not included with this document. The data comes from all [place] facilities. Date Advance Directives Provider Source Jun 29, 2023 ADVANCE DIRECTIVE JAMES GALLO [facility] Sep 19, 2017 ADVANCE DIRECTIVE DINA MCGINNIS [facility] Encounter Notes: All associated encounter notes This section contains the clinical notes associated to the Encounter. Date/Time Encounter Note(s) Provider Source Aug 29, 2023 10:43 AM SLEEP MEDICINE NOT E: LOCAL TITLE: HOME SLEEP STUDY SFT NOTE STANDARD TITLE: SLEEP MEDICINE NOTE DATE OF NOTE: AUG 29, 2023@10:43 ENTRY DATE: AUG 29, 2023@10:51:32 AUTHOR: SUSAN PERSAUD COSIGNER: URGENCY: STATUS: COMPLETED Service Location [facility] Device Information DeviceName: [id number] DeviceSerialNumber: [id number] Patient was offered to receive home sleep testing device by mail and accepted. Verbal instruction was provided for use of home sleep testing equipment. All questions were answered and the patient expressed understanding of the provided instructions and care plan. [place] was mailed a package including: Written instructions on device use with links to online videos and instructions from the managing editor. Instructions on device return (does not apply to disposable device) and contact information for the sleep center. Minutes professional time spent providing care.: 30 min /janine/ SUSAN PERSAUD POLYSOMNOGRAPHYTECHNOLOGIST Signed: 08/29/2023 10:51 SUSAN PERSAUD [facility]
--- OUTSIDE RECORDS SUMMARY | 2024-06-03 08:56 | XMS_ITS | Encounter Summary ---
Author Name [place] Address [address] [place] [address] Care Team Providers Care Saturator Name Role Phone ARIEL JIMENEZ Primary Care [...] Parra's Name Patient's Relationship to Policy Parra [facility] Dec 19, 2015 [phone] [employer] PATIENT [facility] Dec 19, 2015 [id number] LAKESHA NGO PATIENT [facility] May 29, 2012 [id number] [employer] PATIENT Selected Encounter This section includes the information on record at [place] for the Encounter. Date/Time Encounter Type Encounter Description Reason Pro vider Source May 11, 2024 12:53 PM Outpatient Encounter OPTOMETRY E Encounter Template Text not used by [place] Plan of Treatment: Future Appointments (+ 6 months) and Future Tests (+/- 45 days) The Plan of Treatment section includes future care activities for the patient from all [place] [facility]. This section includes future appointments and future orders which are active, pending or scheduled. Future Appointments This section includes appointments that were scheduled to occur 6 months from the date of the Encounter, up to a maximum of 20 appointments. The data comes from all [place] treatment facilities. Appointment Date/Time Appointment Type Appointme nt Facility Name Jul 11, 2024 10:30 AM AMBULATORY - NONE [facility] [place] [facility] Aug 02, 2024 10:00 AM [place] [facility] Aug 09, 2024 09:00 AM AMBULATORY - PSYCHIATRY [facility] Social History: Smoking Status (Most current) and Tobacco Use (All prior to encounter date) This section includes the most current, and the historical, smoking and tobacco- related health factors from the [place] facility where the Encounter took place. Current Smoking Status This section includes the most current smoking, or tobacco-related health factor, from the [place] facility where the Encounter took place. Date/Time Current Smoking Status Comment [facility] Jun 22, 2023 09:00 AM VA-TOBACCO USER SOME DAYS [place] [facility] [place] [facility] Tobacco Use History This section includes a history of the smoking, or tobacco-related health factors, that were collected on or before the date of the Encounter. The data comes from the [place] facility where the Encounter took place. 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 This section includes ALL of a patient's completed or amended [place] Advance and Rescinded Directives. The entries below indicate that a directive exists for the patient, but an actual copy is not included with this document. The data comes from all [place] facilities. Date Advance Directives Provider Source Jun 29, 2023 ADVANCE DIRECTIVE JAMES GALLO [facility] Sep 19, 2017 ADVANCE DIRECTIVE DINA MCGINNIS [facility] Encounter Notes: All associated encounter notes This section contains the clinical notes associated to the Encounter. Date/Time Encounter Note(s) Provider Source May 11, 2024 12:53 PM TELEPHONE ENCOUNTE R NOTE: LOCAL TITLE: TELEPHONE NOTE/SPECIALTY CLINIC STANDARD TITLE: TELEPHONE ENCOUNTER NOTE DATE OF NOTE: MAY 11, 2024@12:53 ENTRY DATE: MAY 11, 2024@12:53:57 AUTHOR: ANA RODRIGUEZ EXP COSIGNER: URGENCY: STATUS: COMPLETED Called and left message on voicemail. Patients appointment with optometry on 02/21/2025 has been cancelled and needs to be rescheduled with a PID of 02/19/2025 Letter mailed. appt to be rescheduled to a Monday ADMINISTRATIVE CONTACT HAS orders: [facility] Able to contact patient: Spoke to Patient/Patient patient registration representative per policy utilizing HIPAA Guidelines. Attempts to contact: 1st attempt: Left voicemail 2nd attempt: Letter mailed Disposition on Apr 3rd attempt: 4th attempt: /janine/ ANA RODRIGUEZ [employer] IMPORT SPECIALIST Signed: 05/11/2024 12:54 ANA RODRIGUEZ [facility]
--- OUTSIDE RECORDS SUMMARY | 2024-06-03 08:56 | XMS_ITS | Encounter Summary ---
Author Name [facility] [place] Address [address] [place] [id number] Care Team Providers Care Carpenter Maintenance Name Role Phone ARIEL JIMENEZ Primary Care [...] Parra's Name Patient's Relationship to Policy Parra [facility] Dec 19, 2015 [id number] [employer]NA [employer] PATIENT [facility] Dec 19, 2015 [id number] [phone] LAKESHA [employer] PATIENT [facility] May 29, 2012 [id number] [phone] [employer]NA [employer] PATIENT Selected Encounter This section includes the information on record at [place] for the Encounter. Date/Time Encounter Type Encounter Description Reason Pro vider Source Jul 12, 2023 12:30 PM Outpatient Encounter ADMIN PAT ACTIVTIES (MASNONCT) IHE Encounter Template Text not used by [facility] Plan of Treatment: Future Appointments (+ 6 months) and Future Tests (+/- 45 days) The Plan of Treatment section includes future care activities for the patient from all [place] [facility]. This section includes future appointments and future orders which are active, pending or scheduled. Future Appointments This section includes appointments that were scheduled to occur 6 months from the date of the Encounter, up to a maximum of 20 appointments. The data comes from all [place] treatment facilities. Appointment Date/Time Appointment Type Appointme nt Facility Name Jul 25, 2023 01:00 PM AMBULATORY [facility] [place] [facility] Aug 09, 2023 08:30 AM AMBULATORY - PSYCHIATRY [facility] Aug 18, 2023 09:00 AM AMBULATORY - [facility]ICIN [facility] [place] [facility] Aug 24, 2023 09:00 AM AMBULATORY - [facility]ICIN [facility] [place] [facility] Aug 28, 2023 08:45 AM AMBULATORY - MEDICINE [facility] [place] [facility] Aug 29, 2023 10:43 AM AM[facility]ULATORY [facility]IC[facility] Sep 22, 2023 07:30 AM AMBULATORY - REHAB MEDICIN E [facility] [place] [facility] September 27, 2023 10:00 AM AMBULATORY - MEDICINE [place] [facility] [place] [facility] October 18, 2023 03:30 PM AMBULATORY - [facility]ICIN [facility] [place] [facility] October 26, 2023 02:00 PM AMBULATORY - MEDICINE [facility] Nov 09, 2023 08:30 AM AMBULATORY - PSYCHIATRY [facility] Lab Results: +/- 30 days of the encounter This section includes the Chemistry and Hematology Lab Results on record with [place] for the patient. Radiology Reports and Pathology Reports are provided separately, in subsequent sections. Lab Results This section contains the Chemistry/Hematology Results that were resulted 30 days before or 30 daysafter the date of the Encounter. Date/Time Source Result Type Result - Unit Interpretation Reference Range Comment Jun 22, 2023 10:28 AM [facility] LIVER FUNCTION Specimen Type: SERUM No comment entered. Ordering Provider: ARIEL JIMENEZ Report Released Date/Time: Jun 22, 2023 09:13 AM Reporting Lab: [facility] [address] [facility] [address] Performing Lab: [address] [address] PROTEIN,TOTAL 7.2 g/dL 6.0-8.3 ALBUMIN 4.6 g/dL 3.5-5.0 ALKALINE PHOSPHATASE 40 U/L 40-150 AST 26 U/L 5-34 ALT 37 U/L BILIRUBIN, TOTAL 0.8 mg/dL 0.2-1.2 Jun 22, 2023 10:28 AM [facility] CBC Specimen Type: BLOOD No comment entered. Ordering Provider: ARIEL JIMENEZ Report Released Date/Time: Jun 22, 2023 09:13 AM Reporting Lab: [address] [address] Performing Lab: [address] [address] WBC 6.16 10*3/uL 4.50-11.00 RBC 5.11 10*6/uL 4.23-5.66 HGB 15.9 g/dL 12.8-17 HCT 47.1 39.2-50.4 MCV 92.2 fL 82-99 MCHC 33.8 g/dL 30.8-35.1 PLT 193 10*3/uL 140-360 RDW-CV 12.4 12.0-16.0 MCH 31.1 pg 26.2-32.6 Jun 22, 2023 10:28 AM [facility] HEMOGLOBIN A1C PANEL Specimen Type: BLOOD Comment: [...] Jun 22, 2023 09:13 AM Reporting Lab: [address] [address] Performing [facility]: [facility] [address] [facility] [address] HEMOGLOBIN A1C 5.7 H 4.0-5.6 Jun 22, 2023 10:28 AM [facility] BASIC METABOLIC PANEL (fasting) Specimen Type: SERUM No comment entered. Ordering Provider: ARIEL JIMENEZ Report Released Date/Time: Jun 22, 2023 09:13 AM Reporting Lab: [facility] [address] [facility] [address] Performing Lab: [facility] [address] [facility] [facility] [address] UREA NITROGEN 23 mg/dL 7-25 GLUCOSE 123 mg/dL H 65-100 SODIUM 139 mmol/L 135-145 POTASSIUM 4.5 mmol/L 3.5-5.0 CHLORIDE 102 mmol/L 100-110 CO2 29 meq/L 20-30 CREATININE, Serum 0.81 mg/dL 0.50-1.40 eGFR(CKD-EPI 2020) >90 mL/min >60 Jun 22, 2023 10:28 AM [facility] PSA Specimen Type: SERUM No comment entered. Ordering Provider: ARIEL JIMENEZ Report Released Date/Time: Jun 22, 2023 09:13 AM Reporting Lab: [facility] [address] [facility] [address] Performing Lab: [address] [address] PSA 1.78 ng/mL 0.00-4.00 Jun 22, 2023 10:28 AM [facility] LIPID PANEL FASTING Specimen Type: SERUM No comment entered. Ordering Provider: ARIEL JIMENEZ Report Released Date/Time: Jun 22, 2023 09:13 AM Reporting Lab: [facility] [address] [facility] [address] Performing Lab: [address] [address] CHOLESTEROL 144 mg/dL TRIGLYCERIDE 48 mg/dL 0-150 LDL calculated 70 mg/dL 0-129 CHOL/HDL 2.3 HDL CHOLESTEROL 64 mg/dL H 40-60 Advance Directives: All historical and current Section Date Range: From patient's date of to the date document was created. This section includes ALL of a patient's completed or amended [place] Advance and Rescinded Directives. The entries below indicate that a directive exists for the patient, but an actual copy is not included with this document. The data comes from all [place] facilities. Date Advance Directives Provider Source Jun 29, 2023 ADVANCE DIRECTIVE JAMES GALLO [facility] Sep 19, 2017 ADVANCE DIRECTIVE RASDINA BC [facility] Encounter Notes: All associated encounter notes This section contains the clinical notes associated to the Encounter. Date/Time Encounter Note(s) Provider Source Jul 12, 2023 12:30 PM LETTERS: LOCAL TITLE: LETTER STANDARD TITLE: LETTERS DATE OF NOTE: JUL 12, 2023@12:30 ENTRY DATE: JUL 12, 2023@12:30:24 AUTHOR: SUSAN PERSAUD EXP COSIGNER: URGENCY: STATUS: COMPLETED JUL 12, 2023 LAKESHA SQUIRES [address] [place], [place] [address] Dear Lakesha Squires Jr, We are contacting you regarding a consult we received from your doctor to schedule you for an Ambulatory Sleep Study. Please CALL us at [phone]. [phone] for further information and to schedule delivery of the Home Test Kit. Sincerely, [facility] Formerly [facility] [address] [place] [id number] SUSAN PERSAUD [facility]
--- OUTSIDE RECORDS SUMMARY | 2024-06-03 08:56 | XMS_ITS | Encounter Summary ---
Author Name [facility] [place] Address [address] [place] [address] Care Team Providers Care Property Assessment Monitor Name Role Phone ARIEL JIMENEZ Primary Care [...] Parra's Name Patient's Relationship to Policy Parra [facility] Dec 19, 2015 [id number] [phone] [phone] TANA [employer] PATIENT [facility] Dec 19, 2015 [id number] [phone] LAKESHA [employer] PATIENT [facility] May 29, 2012 [id number] [phone] [employer] PATIENT Selected Encounter This section includes the information on record at [place] for the Encounter. Date/Time Encounter Type Encounter Description Reason Pro vider Source Apr 29, 2024 12:00 AM Outpatient Encounter COMMUNITY CARE CONSULT IHE Encounter Template Text not used by [facility] Plan of Treatment: Future Appointments (+ 6 months) and Future Tests (+/- 45 days) The Plan of Treatment section includes future care activities for the patient from all [place] [facility] [place] This section includes future appointments and future orders which are active, pending or scheduled. Future Appointments This section includes appointments that were scheduled to occur 6 months from the date of the Encounter, up to a maximum of 20 appointments. The data comes from all [place] treatment facilities. Appointment Date/Time Appointment Type Appointme nt Facility Name May 03, 2024 10:00 AM AMBULATORY - MEDICINE [facility] May 10, 2024 08:30 AM AMBULATORY - PSYCHIATRY [facility] Jul 11, 2024 10:30 AM AMBULATORY - NONE [facility] Aug 02, 2024 10:00 AM AMBULATORY - MEDICINE [facility] Aug 09, 2024 09:00 AM AMBULATORY - PSYCHIATRY [facility] Active, Pending, and Scheduled Orders This section includes a listing of several types of active, pending, and scheduled orders, including clinic medications orders, diagnostic test orders, procedure orders and consult orders; where the start date of the order is 45 days before the date of the Encounter or 45 days after the date of theEncounter. The data comes from all [facility]. Test Date/Time Test Type Test Details Facility Name Mar 15, 2024 01:18 PM Consult Order COMMUNITY CARE-COLONOSCOPY [facility] [employer] [facility] Mar 25, 2024 12:57 PM Consult Order COMMUNITY CARE-[facility] Cons [facility] [employer] [facility] Social History: Smoking Status (Most current) and Tobacco Use (All prior to encounter date) This section includes the most current, and the historical, smoking and tobacco- related health factors from the [place] facility where the Encounter took place. Current Smoking Status This section includes the most current smoking, or tobacco-related health factor, from the [place] facility where the Encounter took place. Date/Time Current Smoking Status Comment [facility] ity Jun 22, 2023 09:00 AM [place]-TOBACCO DOESNT USE WI 30 MIN WAKEUP [facility] Tobacco Use History This section includes a history of the smoking, or tobacco-related health factors, that were collected on or before the date of the Encounter. The data comes from the [place] facility where the Encounter took place. 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 [facility] Jun 22, 2023 09:00 AM VA-TOBACCO USE MED NO [facility] Jun 22, 2023 09:00 AM VA-TOBACCO USER SOME DAYS [facility] Jan 13, 2022 02:00 PM VA-TOBACCO NEVER USED [facility] Jul 06, 2009 03:46 PM QUIT TOBACCO USE > 7 YEARS AGO [facility] Advance Directives: All historical and current Section Date Range: From patient's date of to the date document was created. This section includes ALL of a patient's completed or amended [place] Advance and Rescinded Directives. The entries below indicate that a directive exists for the patient, but an actual copy is not included with this document. The data comes from all [place] facilities. Date Advance Directives Provider Source Jun 29, 2023 AD[facility]ANCE [facility]IVE [facility] Sep 19, 2017 ADVANCE DIRECTIVE DINA MCGINNIS [facility] Encounter Notes: All associated encounter notes This section contains the clinical notes associated to the Encounter. Date/Time Encounter Note(s) Provider Source Apr 29, 2024 12:00 AM NONVA CONSULT: LOCAL TITLE: COMMUNITY CARE-CONSULT RESULT NOTE STANDARD TITLE: NONVA CONSULT DATE OF NOTE: APR 29, 2024 ENTRY DATE: MAY 27, 2024@14:13:33 AUTHOR: ALEIDA CHOUDHURY EXP COSIGNER: URGENCY: STATUS: COMPLETED VistA Imaging - Scanned Document SCANNED DOCUMENT SIGNATURE NOT REQUIRED Electronically Filed: 05/27/2024 by: ALEIDA CASTILLO [facility]
--- OUTSIDE RECORDS SUMMARY | 2024-06-03 08:57 | XMS_ITS | Encounter Summary ---
Author Name [facility] [facility] [place] Address [address] [place] [address] Care Team Providers Care Bank Examiner Name Role Phone ARIEL JIEMNEZ Primary Care Provider Ismael patel Insurance Providers: [...] Parra's Name Patient's Relationship to Policy Parra [facility] Dec 19, 2015 [id number] TANA NGO PATIENT [facility] Dec 19, 2015 [id number] LAKESHA NGO [facility] May 29, 2012 [phone] TANA [employer] PATIENT Selected Encounter This section includes the information on record at NH for the Encounter. Date/Time Encounter Type Encounter Description Reason Provider Source Mar 01, 2024 10:30 AM OFFICE O/P EST LOW 20 MIN SLEEP MEDICINE ICD-10-CM G47.33 Obstructive sleep apnea (adult) (pediatric) WESLEY MOORE IHSammy Encounter Template Text not used by [place] Assessments - Encounter Diagnoses This section includes the primary and secondary diagnoses documented for the Encounter. Date/Time Primary/Secondary Diagnosis Diagnosis Name Provider Source Mar 24, 2024 09:10 PM PRIMARY Obstructive sleep apnea (adult) (pediatric) CHRYSTAL SPEARS RA [facility] Plan of Treatment: Future Appointments (+ 6 months) and Future Tests (+/- 45 days) The Plan of Treatment section includes future care activities for the patient from [facility] [place] [facility]. This section includes future appointments and future orders which are active, pending or scheduled. Future Appointments This section includes appointments that were scheduled to occur 6 months from the date of the Encounter, up to a maximum of 20 appointments. The data comes from all [facility]. Appointment Date/Time Appointment Type Appointme nt Facility Name Mar 12, 2024 09:00 AM [facility] Mar 14, 2024 02:00 PM [facility] Mar 25, 2024 08:00 AM [facility] Mar 27, 2024 11:20 AM [facility] May 03, 2024 10:00 AM AMBULATORY - MEDICINE [facility] May 10, 2024 08:30 AM AMBULATORY - PSYCHIATRY [facility] Jul 11, 2024 10:30 AM [facility] Aug 02, 2024 10:00 AM AMBULATORY - MEDICINE [facility] Aug 09, 2024 09:00 AM AMBULATORY - PSYCHIATRY [facility] Active, Pending, and Scheduled Orders This section includes a listing of several types of active, pending, and scheduled orders, including clinic medications orders, diagnostic test orders, procedure orders and consult orders; where the start date of the order is 45 days before the date of the Encounter or 45 days after the date of theEncounter. The data comes from all [facility]. Test Date/Time Test Type Test Details Facility Name Mar 15, 2024 01:18 PM Consult Order [facility] Cons Track [facility] Mar 25, 2024 12:57 PM Consult Order [facility] HOME CARE Cons Track [facility] Lab Results: +/- 30 days of the encounter This section includes the Chemistry and Hematology Lab Results on record with [place] for the patient. Radiology Reports and Pathology Reports are provided separately, in subsequent sections. Lab Results This section contains the Chemistry/Hematology Results that were resulted 30 days before or 30 daysafter the date of the Encounter. Date/Time Source Result Type Result - Unit Interpretation Reference Range Comment Mar 14, 2024 02:51 PM [facility] CBC AND DIFF (AUTO) Specimen Type: BLOOD No comment entered. Ordering Provider: ARIEL JIMENEZ Report Released Date/Time: Mar 14, 2024 02:13 PM Reporting Lab: [facility] [address] [facility] [facility] [address] Performing Lab: [facility] [address] [facility] [address] WBC 6.17 10*3/uL 4.50-11.00 RBC 5.01 10*6/uL 4.23-5.66 HGB 16.0 g/dL 12.8-17 HCT 45.8 39.2-50.4 MCV 91.4 fL 82-99 MCHC 34.9 g/dL 30.8-35.1 PLT 193 10*3/uL 140-360 RDW-CV 12.7 12.0-16.0 MONO, ABS 0.63 10*3/uL 0.30-1.10 MCH 31.9 pg 26.2-32.6 NEUT % 73.5 43.7-75.8 LYMPH % 13.9 L 14.0-42.3 MONO % 10.2 5.1-13.7 EOS % 1.9 0.4-6.8 BASO % 0.3 0.1-2.0 NEUT, ABS 4.53 10*3/uL 2.20-7.60 LYMPH, ABS 0.86 10*3/uL L 1.00-3.20 EOS, ABS 0.12 10*3/uL 0.03-0.44 BASO, ABS 0.02 10*3/uL 0.01-0.13 IMMATURE GRAN % 0.2 0.0-0.7 IMMATURE GRAN, ABS 0.01 10*3/uL 0.00-0.06 NRBC % 0.0 0.0-0.0 NRBC, ABS 0.00 10*3/uL 0.00-0.00 Mar 14, 2024 02:50 PM [facility] HEMOGLOBIN A1C PANEL Specimen Type: BLOOD Comment: Values obtained from A1C measurements can vary. For atypical A1C assays, a reported value of 7.0 could actually be between 6.72 and 7.28 if measured by a reference method. A reported value of 9.0 could actually be between 8.73 and 9.27. Ref: http://www.ngs p.org/CAPdata. asp Ordering Provider: ARIEL JIMENEZ Report Released Date/Time: September 27, 2023 10:28 AM Reporting Lab: [address] [address] Performing Lab: [address] [address] HEMOGLOBIN A1C 5.7 H 4.0-5.6 Mar 12, 2024 09:50 AM [facility] PT & INR (PROTIME) Specimen Type: PLASMA No comment entered. Ordering Provider: ARIEL JIMENEZ Report Released Date/Time: Feb 23, 2024 11:30 AM Reporting Lab: [address] [address] Performing Lab: [address] [address] INR 0.9 PROTIME 10.7 s 10.0-13.1 Mar 12, 2024 09:50 AM [facility] LIPID PANEL, NON FASTING Specimen Type: SERUM No comment entered. Ordering Provider: ARIEL JIMENEZ Report Released Date/Time: Feb 23, 2024 09:53 AM Reporting Lab: [address] [address] Performing Lab: [address] [address] CHOLESTEROL 130 mg/dL TRIGLYCERIDE 89 mg/dL 0-150 LDL calculated 57 mg/dL 0-129 CHOL/HDL 2.4 HDL CHOLESTEROL 55 mg/dL 40-60 Mar 12, 2024 09:50 AM [facility] BASIC METABOLIC PANEL (non-fasting) Specimen Type: SERUM No comment entered. Ordering Provider: ARIEL JIMENEZ Report Released Date/Time: Feb 23, 2024 09:53 AM Reporting Lab: [address] [address] Performing Lab: [address] [address] UREA NITROGEN 26 mg/dL H 7-25 GLUCOSE 136 mg/dL H 65-100 SODIUM 141 mmol/L 135-145 POTASSIUM 4.7 mmol/L 3.5-5.0 CHLORIDE 104 mmol/L 100-110 CO2 27 meq/L 20-30 CREATININE, Serum 0.86 mg/dL 0.50-1.40 eGFR(CKD-EPI 2020) >90 mL/min >60 Mar 12, 2024 09:50 AM [facility] CBC Specimen Type: BLOOD No comment entered. Ordering Provider: ARIEL JIMENEZ Report Released Date/Time: Feb 23, 2024 11:30 AM Reporting Lab: [address] [address] Performing Lab: [address] [address] WBC 4.94 10*3/uL 4.50-11.00 RBC 4.72 10*6/uL 4.23-5.66 HGB 15.3 g/dL 12.8-17 HCT 43.3 39.2-50.4 MCV 91.7 fL 82-99 MCHC 35.3 g/dL H 30.8-35.1 PLT 175 10*3/uL 140-360 RDW-CV 12.2 12.0-16.0 MCH 32.4 pg 26.2-32.6 Vital Signs: All taken on the encounter date This section contains inpatient and outpatient Vital Signs collected on the date of the Encounter. Date/Time Temperature Pulse Blood Pressure Respiratory Rate SP02 Pain Height Weight Body Mass Index Source Mar 01, 2024 09:54 AM 96.6 86 111/74 96 7 217.4 27 [facility] Advance Directives: All historical and current [...] Jun 29, 2023 ADVANCE DIRECTIVE JAMES GALLO [facility] Sep 19, 2017 ADVANCE DIRECTIVE DINA MCGINNIS [facility] Encounter Notes: All associated encounter notes This section contains the clinical notes associated to the Encounter. Date/Time Encounter Note(s) Provider Source Mar 01, 2024 10:50 AM SLEEP MEDICINE NOT E: LOCAL TITLE: SLEEP DISORDER FOLLOW-UP NOTE STANDARD TITLE: SLEEP MEDICINE NOTE DATE OF NOTE: MAR 01, 2024@10:50 ENTRY DATE: MAR 01, 2024@10:50:34 AUTHOR: PITER SPEARS EXP COSIGNER: LONNIE MOORE URGENCY: STATUS: COMPLETED ID: Lakesha Squires is a 58 MALE with HTN, DM2, Depression, HLD and severe ARLETH here after significant weight loss and repeat sleep study confirmed continued severe ARLETH for management of HNS. HPI: 57-year-old male here for evaluation of sleep apnea syndrome management inspire hypoglossal nerve stimulation that was surgically implanted April 28, 2020. The patient had the device activated and is utilizing it nightly. However, he has reduce his body weight by approximately 65-70 pounds. Sleep study was performed on 08/31/23 after weight loss without inspire activated. Briefly summarized, the patient has severe sleep disordered breathing characterized by an overall AHI of 36 events per hour, long SPO2 of 68% and mean sleeping oxygenation of 92%. The patient spent 2 hours and 43 minutes with blood oxygen levels less than 90% and 16 minutes was spent with blood oxygen levels less than 88%. Before the weight loss, he was using it with success. Since the weight loss, the impulse is stronger since he has lost weight. He ends up turning it off because the stronger impulse bothers him. Since he has not been using it, his is unhappy because he snores and his sleepiness has worsened. ESS 19 today. 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 CV: RRR, S1S2 WNL, no murmur; No JVD Lung: CTAB, no wheezing Psych: normal affect Recent labs and studies: No data available for: HGB Carbon Dioxide No data available for: CO2 SCLU - Lab Cum Selected No data available for: TSH B12 Folate,RBC Hct ([facility]) FOLATE,RBC(pre 02-22-05) ALBUMIN No data available Sleep study 08/31/23 - Severe Obstructive Sleep Apnea (ARLETH). This study showed an overall pAHI-3% of 36.1/hr, SpO2 long of 68%, and mean oxygen saturation of 92% with oxygen saturation <90% observed for 32 minutes (8%). Sleep study data-2004: SEVERE Obstructive Sleep Apnea [...] AHI was The supine AHI was 87.8/hr. Pre Implant AHI Implanted on: April 28, 2020 Activated on: ? Fine Tune PSG: Not done Pre Implant ESS: 24 Current ESS: 19 (off treatment) Sleep sync data: Not currently using Current settings Amplitude 0.8-1.8 v Prior amplitude: 2.5-3.5 (3.0) Electrodes: +/-/+ Pulse width: 90 microseconds Rate: 33 hz Start delay: 30 Minutes Pause time: 10 minutes Therapy duration: 10 hours Changes made today: decreased voltage to 0.8 Assessment and plan: Lakesha Squires Jr is a 58 MALE with HTN, DM2, Depression, HLD and severe ARLETH here after significant weight loss and repeat sleep study confirmed continued severe ARLETH for management of HNS. He has not be using the device because the impulse is too strong since his weight loss. This is a known effect with weight change. We retested the device today and decreased the voltage down to 0.8 with instructions to titrate up every week, like he did when he was activating the device in the first place. Patient also requested new remote which we are investigating the process to get for him. - Follow up in 2 months This patient was discussed with Dr. Tellez Thank you for involving us in his care /janine/ Piter Spears MD Fellow Signed: 03/01/2024 11:21 /janine/ LONNIE MOORE MD ATTENDING Cosigned: 03/07/2024 14:51 PITER SPEARS [facility]
--- OUTSIDE RECORDS SUMMARY | 2024-06-03 08:57 | XMS_ITS | Encounter Summary ---
Author Name [facility] [place] Address [address] [place] [id number] Care Team Providers Care Assistant Refinery Operator Name Role Phone ARIEL JIMENEZ Primary Care [...] Parra's Name Patient's Relationship to Policy Parra [facility] Dec 19, 2015 [id number] TANA NGO PATIENT [facility] Dec 19, 2015 [id number] LAKESHA NGO [facility] May 29, 2012 [id number] [phone] TANA [employer] PATIENT Selected Encounter This section includes the information on record at [place] for the Encounter. Date/Time Encounter Type Encounter Description Reason Provider Source Sep 12, 2023 03:06 PM LEGAL CONTRACTS SPECIALIST STDEduardo UNATTENDED SLEEP STUDY ICD-10-CM G47.33 Obstructive sleep apnea (adult) (pediatric) MODE BROOKS [facility] Encounter Template Text not used by [place] Assessments - Encounter Diagnoses This section includes the primary and secondary diagnoses documented for the Encounter. Date/Time Primary/Secondary Diagnosis Diagnosis Name Provider Source Sep 20, 2023 08:28 AM PRIMARY Obstructive sleep apnea (adult) (pediatric) MODE BROOKS [facility] Plan of Treatment: Future Appointments (+ 6 months) and Future Tests (+/- 45 days) The Plan of Treatment section includes future care activities for the patient from all [place] treatmentfacilities. This section includes future appointments and future orders which are active, pending or scheduled. Future Appointments This section includes appointments that were scheduled to occur 6 months from the date of the Encounter, up to a maximum of 20 appointments. The data comes from all [place] treatment facilities. Appointment Date/Time Appointment Type Appointme nt Facility Name Sep 22, 2023 07:30 AM AMBULATORY - [place]ICIN [place] [facility] [place] [facility] September 27, 2023 10:00 AM AMBULATORY - MEDICINE [place] [facility] [place] [facility] October 18, 2023 03:30 PM AMBULATORY - REHAB MEDICIN E [place] [facility] [place] [facility] October 26, 2023 02:00 PM AMBULATORY - MEDICINE [facility] Nov 09, 2023 08:30 AM AMBULATORY - PSYCHIATRY [facility] Feb 09, 2024 08:30 AM AMBULATORY - PSYCHIATRY [facility] Feb 12, 2024 01:30 PM AMBULATORY - NONE [place] [facility] [place] [facility] Feb 19, 2024 08:30 AM AMBULATORY - MEDICINE [facility] [place] [place] [facility] Feb 21, 2024 08:40 AM AMBULATORY - MEDICINE [place] [facility] [place] [facility] Mar 01, 2024 10:30 AM AMBULATORY - MEDICINE [facility] Mar 12, 2024 09:00 AM AMBULATORY - MEDICINE [facility] [place] [place] [facility] Lab Results: +/- 30 days of the encounter This section includes the Chemistry and Hematology Lab Results on record with [place] for the patient. Radiology Reports and Pathology Reports are provided separately, in subsequent sections. Lab Results This section contains the Chemistry/Hematology Results that were resulted 30 days before or 30 daysafter the date of the Encounter. Date/Time Source Result Type Result - Unit Interpretation Reference Range Comment Sep 21, 2023 07:50 AM [facility] HEMOGLOBIN A1C PANEL Specimen Type: BLOOD [...] Jun 29, 2023 02:06 PM Reporting Lab: [facility] [address] [address] Performing Lab: [address] [address] HEMOGLOBIN A1C 5.9 H 4.0-5.6 Sep 21, 2023 07:50 AM [facility] TSH Specimen Type: SERUM No comment entered. Ordering Provider: ARIEL JIMENEZ Report Released Date/Time: Jun 29, 2023 02:06 PM Reporting Lab: [facility] [address] [address] [address] Performing Lab: [facility] [address] [address] TSH 1.49 u[IU]/mL 0.35-5.00 Sep 21, 2023 07:50 AM [facility] MICROALBUMIN CREATININE RATIO PANEL Specimen Type: URINE No comment entered. Ordering Provider: ARIEL JIMENEZ Report Released Date/Time: Jun 29, 2023 02:06 PM Reporting Lab: [facility] [address] [facility] [facility] [address] Performing Lab: [address] [address] MICROALBUMIN/C REATININE RATIO 8.8 mg/g 0-29.9 MICROALBUMIN,Q UANTITATIVE 0.5 mg/dL RR UNAVAIL CREATININE URINE 56.63 mg/dL Sep 21, 2023 07:50 AM [facility] BASIC METABOLIC PANEL (fasting) Specimen Type: SERUM No comment entered. Ordering Provider: ARIEL JIMENEZ Report Released Date/Time: Jun 29, 2023 02:06 PM Reporting Lab: [facility] [address] [facility] [address] Performing Lab: [facility] [address] [facility] [address] [address] UREA NITROGEN 19 mg/dL 7-25 GLUCOSE 113 [...] ALL of a patient's completed or amended [place] Advance and Rescinded Directives. The entries below indicate that a directive exists for the patient, but an actual copy is not included with this document. The data comes from all [place] facilities. Date Advance Directives Provider Source Jun 29, 2023 ADVANCE DIRECTIVE JAMES GALLO [facility] Sep 19, 2017 ADVANCE DIRECTIVE DINA MCGINNIS [facility] Encounter Notes: All associated encounter notes This section contains the clinical notes associated to the Encounter. Date/Time Encounter Note(s) Provider Source Sep 12, 2023 03:06 PM SLEEP MEDICINE CON SULT: LOCAL TITLE: AMBULATORY SLEEP STUDY CONSULT STANDARD TITLE: SLEEP MEDICINE CONSULT DATE OF NOTE: SEP 12, 2023@15:06:01 ENTRY DATE: SEP 12, 2023@15:06:02 AUTHOR: MODE BROOKS EXP COSIGNER: URGENCY: STATUS: COMPLETED [facility] HOME SLEEP APNEA TEST- WatchPAT IDENTIFICATION: Name (Last, First): LAKESHA SQUIRES : 1965 Study date: 08/31/2023 Requesting Provider: JUDSON SORIANO STUDY TECHNIQUE AND DEFINITIONS: The WatchPAT device monitors and measures variations in peripheral arterial tone (PAT) via an opto-pneumatic finger-mounted probe. Additional recorded channels include pulse rate, oximetry, actigraphy, body position, chest motion, and snore sensor. Sleep/wake detection is based upon actigraphy data; and sleep staging is thereafter based upon variability in pulse rate, attenuation and variability of PAT amplitude, and inter-pulse period features. The PAT Apnea-Hypopnea Index (pAHI) and PAT Respiratory Disturbance Index (pRDI) are estimates of conventional pAHI and pRDI values produced by polysomnography. pAHI-3% is calculated using oxygen desaturations of >=3% per hour of technically valid sleep time (TVST). Oxygen desaturation index 3% (SAE-3%) is calculated using number of >=3% oxygen desaturations per hour of TVST. PATIENT HISTORY: 57 year old Male with BMI of 28 (weight 225 lbs, height 75 inches) Indication: History of severe sleep apnea syndrome managed with inspire hypoglossal nerve stimulation. Given the patient's weight reduction of 65-70 pounds, he will undergo home sleep testing without utilizing inspire hypoglossal nerve stimulation to obtain a baseline. Active medication(s): ATORVASTATIN CALCIUM 80MG TAB, EMPAGLIFLOZIN 10MG TAB, HYDROCHLORTHIAZIDE 12.5MG CAP, LISINOPRIL 5MG TAB, METFORMIN HCL 500MG 24HR SA TAB, NEEDLE,PEN 31G,8MM, SEMAGLUTIDE 0.5MG/0.375ML INJ PEN 1.5ML, SERTRALINE HCL 50MG TAB, INSULIN,GLARGINE 100 UNT/ML 3ML SOLOSTAR, ALBUTEROL INHALER INHL,ORAL, ASPIRIN TAB,EC, AZITHROMYCIN 250MG TAB, LORATADINE TAB,ORAL STUDY DETAILS: - Total Recording Time was 7 hrs. 48 min. - Study start time was 22:28:17 PM - Study stop time was 06:16:50 AM - Estimated total sleep time (TST) 6 hrs. 51 min. - TVST was 6 hrs. 51 min. - Estimated REM was 21.1% of TST BODY POSITION - Supine sleep was 2 hrs. 23 min. (34.9% of TST) - Non-Supine sleep was 3 hrs. 20 min. (48.7% of TST) RESPIRATORY PARAMETERS: - pAHI-3% was 36.1 events per hour. - Supine pAHI-3% was 34.8 events per hour. - Non-supine pAHI-3% was 38.4 events per hour. - Estimated REM pAHI-3% was 24.2 events per hour. - Central pAHI-3% was 3.8 events per hour. - pRDI was 36.8 events per hour. - Snoring >50dB for 3.5% of TST - SAE-3% was 24 - Mean oxygen saturation was 92% - Lowest oxygen saturation was 68% - Saturations < 90%: 32.2 minutes (7.8% of TST) - Saturations <= 88%: 16.2 minutes (4% of TST) HEART RATE STATISTICS (BPM) - Mean: 79; Min: 60; Max: 105 IMPRESSION: - Severe Obstructive Sleep Apnea (ARLETH). This study showed an overall pAHI-3% of 36.1/hr, SpO2 long of 68%, and mean oxygen saturation of 92% with oxygen saturation <90% observed for 32 minutes (8%). - Snoring was >50db for 3.5% of TVST. - Study demonstrated adequate sampling of recording time with sufficient technical quality. RECOMMENDATIONS: - Follow up with patient's sleep provider TRIP Mazariegos to review the results of this study. - Consider referral to the [facility] for further management of the hypoglossal nerve stimulator. - Current [place] [employer] recommendations for treatment of obstructive sleep apnea includes 1) weight loss in overweight patients, 2) positive airway pressure (PAP) as initial therapy, and 3) oral appliance therapy as alternative therapy for select patients. Treatment also includes avoidance of sleeping in the supine position and reduction of alcohol and medications that contribute to upper airway relaxation. The patient should be counseled to avoid driving if sleepy. - A copy of this report will be forwarded to the patient's primary sleep provider, Judson DOMINIQUE. /janine/ MODE BROOKS MD ATTENDING Signed: 09/12/2023 15:06 Receipt Acknowledged By: 09/12/2023 20:18 /janine/ TRIP Guerra, Sleep Medicine MODE BROOKS [facility]
--- OUTSIDE RECORDS SUMMARY | 2024-06-03 08:57 | XMS_ITS | Encounter Summary ---
Author Name [facility] [facility] [place] Organization [facility] [place] Address [address] [place] [id number] Care Team Providers Care Utilization Management Nurse Name Role Phone ARIEL JIMENEZ Primary Care [...] Parra's Name Patient's Relationship to Policy Parra [facility] Dec 19, 2015 [id number] [phone] TANA NGO PATIENT [facility] Dec 19, 2015 [id number] [phone] LAKESHA NGO PATIENT [facility] May 29, 2012 [id number] TANA [employer] PATIENT Selected Encounter This section includes the information on record at [place] for the Encounter. Date/Time Encounter Type Encounter Description Reason Provider Source October 26, 2023 02:00 PM Outpatient Encounter TELEPHONE/MEDICIN E ICD-10-CM G47.30 Sleep apnea, unspecified LEANNA SORIANO Sammy Encounter Template Text not used by [place] Assessments - Encounter Diagnoses This section includes the primary and secondary diagnoses documented for the Encounter. Date/Time Primary/Secondary Diagnosis Diagnosis Name Provider Source October 26, 2023 02:00 PM PRIMARY Sleep apnea, unspecified LEANNA SORIANO Plan of Treatment: Future Appointments (+ 6 months) and Future Tests (+/- 45 days) The Plan of Treatment section includes future care activities for the patient from all [place] [facility] This section includes future appointments and future orders which are active, pending or scheduled. Future Appointments This section includes appointments that were scheduled to occur 6 months from the date of the Encounter, up to a maximum of 20 appointments. The data comes from all [place] treatment facilities. Appointment Date/Time Appointment Type Appointme nt Facility Name Nov 09, 2023 08:30 AM AMBULATORY - PSYCHIATRY [facility] Feb 09, 2024 08:30 AM AMBULATORY - PSYCHIATRY [facility] Feb 12, 2024 01:30 PM AMBULATORY - [facility] [place] [facility] Feb 19, 2024 08:30 AM AMBULATORY - MEDICINE [place] C [place] [facility] Feb 21, 2024 08:40 AM AMBULATORY - MEDICINE DC C [place] [facility] Mar 01, 2024 10:30 AM AMBULATORY - MEDICINE [facility] Mar 12, 2024 09:00 AM AMBULATORY - MEDICINE [place] [facility] Mar 14, 2024 02:00 PM AMBULATORY - MEDICINE DC C [place] [facility] Mar 25, 2024 08:00 AM AMBULATORY - MEDICINE DC C [place] [facility] Mar 27, 2024 11:20 AM AMBULATORY - MEDICINE DC C [place] [facility] Advance Directives: All historical and current Section Date Range: From patient's date of to the date document was created. This section includes ALL of a patient's completed or amended [place] Advance and Rescinded Directives. The entries below indicate that a directive exists for the patient, but an actual copy is not included with this document. The data comes from all [facility]. Date Advance Directives Provider Source Jun 29, 2023 ADVANCE DIRECTIVE JAMES GALLO [place] [facility] [place] [facility] Sep 19, 2017 ADVANCE DIRECTIVE DINA MCGINNIS [place] [facility] Encounter Notes: All associated encounter notes This section contains the clinical notes associated to the Encounter. Date/Time Encounter Note(s) Provider Source October 26, 2023 04:42 PM SLEEP MEDICINE CON SULT: LOCAL TITLE: SLEEP DISORDER INITIAL CONSULT NOTE STANDARD TITLE: SLEEP MEDICINE CONSULT DATE OF NOTE: OCTOBER 26, 2023@16:42 ENTRY DATE: OCTOBER 26, 2023@16:42:49 AUTHOR: LEANNA SORIANO EXP COSIGNER: URGENCY: STATUS: COMPLETED 57-year-old male was contacted to discuss home sleep testing that was conducted with to determine whether or not sleep apnea syndrome continues to exist given a weight reduction of 65-70 pounds. He has had Inspire hypoglossal nerve stimulation implanted during 2021 which has provided therapeutic benefit improving sleep quality. Given the patient's significant weight reduction, this sleep study was conducted without Inspire activated with goal to achieve a baseline of sleep apnea syndrome. Briefly summarized, the patient has severe sleep disordered breathing characterized by an overall AHI of 36 events per hour, long SPO2 of 68% and mean sleeping oxygenation of 92%. The patient spent 2 hours and 43 minutes with blood oxygen levels less than 90% and 16 minutes was spent with blood oxygen levels less than 88%. The patient endorsed with the use of Inspire, his sleep is more restorative and he accrues a greater amount of alertness during daytime hours. He is transitioning to [place] as his [place] sleep physician has retired. Name (Last, First): LAKESHA SQUIRES : 1965 Study date: 08/31/2023 Requesting Provider: LEANNA SORIANO STUDY TECHNIQUE AND DEFINITIONS: The WatchPAT [...] Snoring was >50db for 3.5% of TVST. Assessment/plan: 1. Severe sleep apnea syndrome complicated by sleep induced hypoxemia. - The patient was contacted and his sleep study data was discussed. It appears despite weight reduction, the patient still has severe sleep disordered breathing. Moving forward, recommendations include having a home sleep study conducted with Inspire engaged/activated to determine efficacy. The patient agreed to have this completed and therefore a consultation for home sleep study was placed. He will be contacted via telephone and the study results will be discussed. 20 minutes was utilized for discussion /es/ TRIP Guerra, Sleep Medicine Signed: 10/26/2023 17:08 LEANNA SORIANO
--- OUTSIDE RECORDS SUMMARY | 2024-06-03 08:57 | XMS_ITS | Encounter Summary ---
Author Name [facility] [place] Organization [place] Address [address] [place] [address] Care Team Providers Care Budget Manager Name Role Phone ARIEL JMIENEZ Primary Care Provider Ismael patel Insurance Providers: [...] Parra's Name Patient's Relationship to Policy Parra [facility] Dec 19, 2015 [id number] TANA NGO PATIENT [facility] Dec 19, 2015 [id number] LAKESHA NGO PATIENT [facility] May 29, 2012 [id number] TANA [employer] PATIENT Selected Encounter This section includes the information on record at [place] for the Encounter. Date/Time Encounter Type Encounter Description Reason Provider Source Sep 05, 2023 08:34 AM TELEHEALTH FACILITY FEE SLEEP STUDY ICD-10-CM G47.33 Obstructive sleep apnea (adult) (pediatric) [facility] Encounter Template Text not used by [place] Assessments - Encounter Diagnoses This section includes the primary and secondary diagnoses documented for the Encounter. Date/Time Primary/Secondary Diagnosis Diagnosis Name Provider Source Sep 20, 2023 08:28 AM PRIMARY Obstructive sleep apnea (adult) (pediatric) [facility] Plan of Treatment: Future Appointments (+ 6 months) and Future Tests (+/- 45 days) The Plan of Treatment section includes future care activities for the patient from all [place] treatmentfacilities. This section includes future appointments and future orders which are active, pending or scheduled. Future Appointments This section includes appointments that were scheduled to occur 6 months from the date of the Encounter, up to a maximum of 20 appointments. The data comes from all [place] treatment facilities. Appointment Date/Time Appointment Type Appointme nt Facility Name Sep 22, 2023 07:30 AM AMBULATORY - REHAB MEDICIN [place] [facility] September 27, 2023 10:00 AM AMBULATORY - MEDICINE [facility] [place] [facility] October 18, 2023 03:30 PM AMBULATORY - REHAB MEDICIN [place] [facility] October 26, 2023 02:00 PM AMBULATORY - MEDICINE [facility] Nov 09, 2023 08:30 AM AMBULATORY - PSYCHIATRY [facility] Feb 09, 2024 08:30 AM AMBULATORY - PS[facility]CHIATRY [facility] Feb 12, 2024 01:30 PM [facility] Feb 19, 2024 08:30 AM [facility] - [facility] Feb 21, 2024 08:40 AM AMBULATORY - MEDICINE [facility] [place] [facility] Mar 01, 2024 10:30 AM AMBULATORY - MEDICINE [facility] Lab Results: +/- 30 days of the encounter This section includes the Chemistry and Hematology Lab Results on record with [place] for the patient. Radiology Reports and Pathology Reports are provided separately, in subsequent sections. Lab Results This section contains the Chemistry/Hematology Results that were resulted 30 days before or 30 daysafter the date of the Encounter. Date/Time Source Result Type Result - Unit Interpretation Reference Range Comment Sep 21, 2023 07:50 AM [facility] HEMOGLOBIN A1C PANEL Specimen Type: BLOOD Comment: [...] Jun 29, 2023 02:06 PM Reporting Lab: [facility] [address] [address] Performing Lab: [address] [address] HEMOGLOBIN A1C 5.9 H 4.0-5.6 Sep 21, 2023 07:50 AM [facility] TSH Specimen Type: SERUM No comment entered. Ordering Provider: ARIEL JIMENEZ Report Released Date/Time: Jun 29, 2023 02:06 PM Reporting Lab: [facility] [address] [address] Performing Lab: [facility] [address] [address] TSH 1.49 u[IU]/mL 0.35-5.00 Sep 21, 2023 07:50 AM [facility] MICROALBUMIN CREATININE RATIO PANEL Specimen Type: URINE No comment entered. Ordering Provider: ARIEL JIMENEZ Report Released Date/Time: Jun 29, 2023 02:06 PM Reporting Lab: [facility] [address] [address] Performing Lab: [facility] [address] MICROALBUMIN/C REATININE RATIO 8.8 mg/g 0-29.9 MICROALBUMIN,Q UANTITATIVE 0.5 mg/dL RR UNAVAIL CREATININE URINE 56.63 mg/dL Sep 21, 2023 07:50 AM [facility] BASIC METABOLIC PANEL (fasting) Specimen Type: SERUM No comment entered. Ordering Provider: ARIEL JIMENEZ Report Released Date/Time: Jun 29, 2023 02:06 PM Reporting Lab: [facility] [address] [address] Performing Lab: [facility] [address] [address] UREA NITROGEN 19 mg/dL 7-25 GLUCOSE 113 [...] ALL of a patient's completed or amended [place] Advance and Rescinded Directives. The entries below indicate that a directive exists for the patient, but an actual copy is not included with this document. The data comes from all [place] facilities. Date Advance Directives Provider Source Jun 29, 2023 ADVANCE DIRECTIVE JAMES GALLO [facility] Sep 19, 2017 ADVANCE DIRECTIVE DINA MCGINNIS [facility] Encounter Notes: All associated encounter notes This section contains the clinical notes associated to the Encounter. Date/Time Encounter Note(s) Provider Source Sep 05, 2023 08:34 AM SLEEP MEDICINE NOT E: LOCAL TITLE: HOME SLEEP STUDY DATA UPLOAD NOTE STANDARD TITLE: SLEEP MEDICINE NOTE DATE OF NOTE: SEP 05, 2023@08:34:09 ENTRY DATE: SEP 05, 2023@08:34:10 AUTHOR: [facility] PRE[facility]ON EXP COSIGNER: URGENCY: STATUS: COMPLETED Home sleep testing was completed by the patient and the device was returned. The data has been uploaded and reviewed for quality.: Data quality is: Acceptable Study to be scored and reviewed for interpretation Questionnaires were: Not returned Time spent: 30 min /janine/ SE[facility] PRESTON RPSGT Signed: 09/05/2023 08:34 [facility]
--- OUTSIDE RECORDS SUMMARY | 2024-06-03 08:57 | XMS_ITS | Encounter Summary ---
Author Name [facility] [place] Address [address] [place] [address] Care Team Providers Care Ice Bag Assembler Name Role Phone ARIEL JIMENEZ Primary Care [...] Parra's Name Patient's Relationship to Policy Parra [facility] Dec 19, 2015 [id number] [phone] TANA NGO [facility] Dec 19, 2015 [id number] LAKESHA NGO PATIENT [facility] May 29, 2012 [id number] TANA NGO PATIENT Selected Encounter This section includes the information on record at [place] for the Encounter. Date/Time Encounter Type Encounter Description Reason Provider Source Mar 14, 2024 02:04 PM ELECTROCARDIOGRAM REPORT EKG ICD-10-CM Z13.6 Encounter for screening for cardiovascular disorders [facility] Encounter Template Text not used by [place] Assessments - Encounter Diagnoses This section includes the primary and secondary diagnoses documented for the Encounter. Date/Time Primary/Secondary Diagnosis Diagnosis Name Provider Source Mar 15, 2024 11:55 AM PRIMARY Encounter for screening for cardiovascular disorders CLARA REGALADO [facility] Plan of Treatment: Future Appointments (+ 6 months) and Future Tests (+/- 45 days) The Plan of Treatment section includes future care activities for the patient from all [place] [facility]. This section includes future appointments and future orders which are active, pending or scheduled. Future Appointments This section includes appointments that were scheduled to occur 6 months from the date of the Encounter, up to a maximum of 20 appointments. The data comes from all [facility] facilities. Appointment Date/Time Appointment Type Appointme nt Facility Name Mar 25, 2024 08:00 AM AMBULATORY - MEDICINE [facility] Mar 27, 2024 11:20 AM AMBULATORY MEDICINE [facility] May 03, 2024 10:00 AM AMBULATORY - MEDICINE [facility] May 10, 2024 08:30 AM AMBULATORY - PSYCHIATRY [facility] Jul 11, 2024 10:30 AM AMBULATORY - NONE [facility] Aug 02, 2024 10:00 AM AMBULATORY - MEDICINE [facility] Aug 09, 2024 09:00 AM AMBULATORY [...] of theEncounter. The data comes from all [facility]. Test Date/Time Test Type Test Details Facility Name Mar 15, 2024 01:18 PM Consult Order COMMUNITY CARE-COLONOSCOPY SURVEILLANCE Cons Grader T[facility] Choice [facility] Mar 25, 2024 12:57 PM Consult Order COMMUNITY CARE-GEC SKILLED HOME CARE Cons Grader T[facility] Choice [facility] Lab Results: +/- 30 days of the encounter This section includes the Chemistry and Hematology Lab Results on record with [place] for the patient. Radiology Reports and Pathology Reports are provided separately, in subsequent sections. Lab Results This section contains the Chemistry/Hematology Results that were resulted 30 days before or 30 daysafter the date of the Encounter. Date/Time Source Result Type Result - Unit Interpretation Reference Range Comment Mar 14, 2024 02:51 PM [facility] CBC AND DIFF (AUTO) Specimen Type: BLOOD No comment entered. Ordering Provider: ARIEL JIMENEZ Report Released Date/Time: Mar 14, 2024 02:13 PM Reporting Lab: [facility] [address] [facility] [address] Performing Lab: [facility] [address] [facility] [address] WBC 6.17 10*3/uL 4.50-11.00 RBC 5.01 10*6/uL [...] 10*3/uL 0.00-0.00 Mar 14, 2024 02:50 PM [facility] HEMOGLOBIN A1C PANEL Specimen Type: [...] September 27, 2023 10:28 AM Reporting Lab: [facility] [address] [facility] [address] Performing Lab: [address] [address] HEMOGLOBIN A1C 5.7 H 4.0-5.6 Mar 12, 2024 09:50 AM [facility] LIPID PANEL, NON FASTING Specimen Type: SERUM No comment entered. Ordering Provider: ARIEL JIMENEZ Report Released Date/Time: Feb 23, 2024 09:53 AM Reporting Lab: [facility] [address] [facility] [address] Performing Lab: [address] [address] CHOLESTEROL 130 mg/dL TRIGLYCERIDE 89 mg/dL 0-150 LDL calculated 57 mg/dL 0-129 CHOL/HDL 2.4 HDL CHOLESTEROL 55 mg/dL 40-60 Mar 12, 2024 09:50 AM [facility] BASIC METABOLIC PANEL (non-fasting) Specimen Type: SERUM No comment entered. Ordering Provider: ARIEL JIMENEZ Report Released Date/Time: Feb 23, 2024 09:53 AM Reporting Lab: [address] [address] Performing Lab: [address] [address] UREA NITROGEN 26 mg/dL H 7-25 GLUCOSE 136 mg/dL H 65-100 SODIUM 141 mmol/L 135-145 POTASSIUM 4.7 mmol/L 3.5-5.0 CHLORIDE 104 mmol/L 100-110 CO2 27 meq/L 20-30 CREATININE, Serum 0.86 mg/dL 0.50-1.40 eGFR(CKD-EPI 2020) >90 mL/min >60 Mar 12, 2024 09:50 AM [facility] PT & INR (PROTIME) Specimen Type: PLASMA No comment entered. Ordering Provider: ARIEL JIMENEZ Report Released Date/Time: Feb 23, 2024 11:30 AM Reporting Lab: [facility] [address] [facility] [address] Performing Lab: [address] [address] INR 0.9 PROTIME 10.7 s 10.0-13.1 Mar 12, 2024 09:50 AM [facility] CBC Specimen Type: BLOOD No comment entered. Ordering Provider: ARIEL JIMENEZ Report Released Date/Time: Feb 23, 2024 11:30 AM Reporting Lab: [facility] [address] [facility] [address] Performing Lab: [facility] [address] [facility] [address] WBC 4.94 10*3/uL 4.50-11.00 RBC 4.72 10*6/uL 4.23-5.66 HGB 15.3 g/dL 12.8-17 HCT 43.3 39.2-50.4 MCV 91.7 fL 82-99 MCHC 35.3 g/dL H 30.8-35.1 PLT 175 10*3/uL 140-360 RDW-CV 12.2 12.0-16.0 MCH 32.4 pg 26.2-32.6 Advance Directives: All historical and current Section Date Range: From patient's date of to the date document was created. This section includes ALL of a patient's completed or amended [place] Advance and Rescinded Directives. The entries below indicate that a directive exists for the patient, but an actual copy is not included with this document. The data comes from all [place] facilities. Date Advance Directives Provider Source Jun 29, 2023 ADVANCE DIRECTIVE JAMES GALLO [facility] Sep 19, 2017 ADVANCE DIRECTIVE DINA MCGINNIS [place] [facility] Encounter Notes: All associated encounter notes This section contains the clinical notes associated to the Encounter. Date/Time Encounter Note(s) Provider Source Mar 15, 2024 11:47 AM CARDIOLOGY PROCEDU RE NOTE: LOCAL TITLE: EKG OUTPATIENT RESULT STANDARD TITLE: CARDIOLOGY PROCEDURE NOTE DATE OF NOTE: MAR 15, 2024@11:47 ENTRY DATE: MAR 15, 2024@11:47:28 AUTHOR: CLARA REGALADO EXP COSIGNER: URGENCY: STATUS: COMPLETED An EKG was done on: Feb Please see [facility] for the EKG result. /janine/ CLARA REGALADO ROLL CHANGER Signed: 03/15/2024 11:55 CLARA REGALADO [facility]
--- OUTSIDE RECORDS SUMMARY | 2024-06-03 08:57 | XMS_ITS | Encounter Summary ---
Author Name [facility] [place] Organization [facility] [place] Address [address] [place] [address] Care Team Providers Care Electrical Engineering Draftsperson Name Role Phone ARIEL JIMENEZ Primary Care [...] Parra's Name Patient's Relationship to Policy Parra [facility] Dec 19, 2015 [id number] TANA NGO PATIENT [facility] Dec 19, 2015 [id number] [phone] LAKESHA NGO PATIENT [facility] May 29, 2012 [id number] [employer] PATIENT Selected Encounter This section includes the information on record at ID for the Encounter. Date/Time Encounter Type Encounter Description Reason Provider Source Mar 21, 2024 09:13 AM Outpatient Encounter SLEEP MEDICINE GLADIS MOORE E Encounter Template Text not used by [facility] Plan of Treatment: Future Appointments (+ 6 months) and Future Tests (+/- 45 days) The Plan of Treatment section includes future care activities for the patient from all [facility]. This section includes future appointments and future orders which are active, pending or scheduled. Future Appointments This section includes appointments that were scheduled to occur 6 months from the date of the Encounter, up to a maximum of 20 appointments. The data comes from all ID treatment facilities. Appointment Date/Time Appointment Type Appointme nt Facility Name Mar 25, 2024 08:00 AM AMBULATORY - MEDICINE [facility] Mar 27, 2024 11:20 AM AMBULATORY - MEDICINE [facility] May 03, 2024 10:00 AM AMBULATORY - MEDICINE [facility] May 10, 2024 08:30 AM AMBULATORY - PSYCHIATRY [facility] Jul 11, 2024 10:30 AM [facility] Aug 02, 2024 10:00 AM AMBULATORY - MEDICINE [facility] Aug 09, 2024 09:00 AM AMBULATORY - PSYCHIATRY [facility] Active, Pending, and Scheduled Orders This section includes a listing of several types of active, pending, and scheduled orders, including clinic medications orders, diagnostic test orders, procedure orders and consult orders; where the start date of the order is 45 days before the date of the Encounter or 45 days after the date of theEncounter. The data comes from all [facility]. Test Date/Time Test Type Test Details Facility Name Mar 15, 2024 01:18 PM Consult Order COMMUNITY CARE-COLONOSCOPY SURVEILLANCE Cons Title Curator's Choice [facility] Mar 25, 2024 12:57 PM Consult Order [facility] Cons Title Curator's Choice [facility] Lab Results: +/- 30 days of the encounter This section includes the Chemistry and Hematology Lab Results on record with ID for the patient. Radiology Reports and Pathology Reports are provided separately, in subsequent sections. Lab Results This section contains the Chemistry/Hematology Results that were resulted 30 days before or 30 daysafter the date of the Encounter. Date/Time Source Result Type Result - Unit Interpretation Reference Range Comment Mar 14, 2024 02:51 PM [facility] CBC AND DIFF (AUTO) Specimen Type: BLOOD No comment entered. Ordering Provider: ARIEL JIMENEZ Report Released Date/Time: Mar 14, 2024 02:13 PM Reporting Lab: [facility] [address] [facility] [address] Performing Lab: [facility] [address] [facility] [address] WBC 6.17 10*3/uL 4.50-11.00 RBC 5.01 10*6/uL [...] 10*3/uL 0.00-0.00 Mar 14, 2024 02:50 PM [facility] HEMOGLOBIN A1C PANEL Specimen Type: [...] September 27, 2023 10:28 AM Reporting Lab: [facility] [address] [facility] [address] Per[facility]: [facility] [address] [facility] [address] HEMOGLOBIN A1C 5.7 H 4.0-5.6 Mar 12, 2024 09:50 AM [facility] PT & INR (PROTIME) Specimen Type: PLASMA No comment entered. Ordering Provider: ARIEL JIMENEZ Report Released Date/Time: Feb 23, 2024 11:30 AM Reporting [facility] [address] [facility] [address] Performing [facility]: [facility] [address] [facility] [address] INR 0.9 PROTIME 10.7 s 10.0-13.1 Mar 12, 2024 09:50 AM [facility] LIPID PANEL, NON FASTING Specimen Type: SERUM No comment entered. Ordering Provider: ARIEL JIMENEZ Report Released Date/Time: Feb 23, 2024 09:53 AM Reporting Lab: [facility] [address] [facility] [address] Performing [facility]: [facility] [address] [facility] [address] CHOLESTEROL 130 mg/dL TRIGLYCERIDE 89 mg/dL 0-150 LDL calculated 57 mg/dL 0-129 CHOL/HDL 2.4 HDL CHOLESTEROL 55 mg/dL 40-60 Mar 12, 2024 09:50 AM [facility] BASIC METABOLIC PANEL (non-fasting) Specimen Type: SERUM No comment entered. Ordering Provider: ARIEL JIMENEZ Report Released Date/Time: Feb 23, 2024 09:53 AM Reporting Lab: [facility] [address] [address] Performing Lab: [facility] [address] [facility] [address] UREA NITROGEN 26 mg/dL H 7-25 GLUCOSE 136 mg/dL H 65-100 SODIUM 141 mmol/L 135-145 POTASSIUM 4.7 mmol/L 3.5-5.0 CHLORIDE 104 mmol/L 100-110 CO2 27 meq/L 20-30 CREATININE, Serum 0.86 mg/dL 0.50-1.40 eGFR(CKD-EPI 2020) >90 mL/min >60 Mar 12, 2024 09:50 AM [facility] CBC Specimen Type: BLOOD No comment entered. Ordering Provider: ARIEL JIMENEZ Report Released Date/Time: Feb 23, 2024 11:30 AM Reporting Lab: [address] [address] Performing Lab: [address] [address] WBC 4.94 10*3/uL 4.50-11.00 RBC 4.72 10*6/uL [...] ALL of a patient's completed or amended ID Advance and Rescinded Directives. The entries below indicate that a directive exists for the patient, but an actual copy is not included with this document. The data comes from all ID facilities. Date Advance Directives Provider Source Jun 29, 2023 ADVANCE DIRECTIVE JAMES GALLO [facility] Sep 19, 2017 ADVANCE DIRECTIVE IDNA MCGINNIS [facility] Encounter Notes: All associated encounter notes This section contains the clinical notes associated to the Encounter. Date/Time Encounter Note(s) Provider Source Mar 21, 2024 09:13 AM SLEEP MEDICINE SEC URE MESSAGING: LOCAL TITLE: SLEEP MEDICINE SECURE MESSAGING STANDARD TITLE: SLEEP MEDICINE SECURE MESSAGING DATE OF NOTE: MAR 21, 2024@09:13 ENTRY DATE: MAR 21, 2024@09:13:58 AUTHOR: LONNIE MOORE EXP COSIGNER: URGENCY: STATUS: COMPLETED ------Original Message --- Sent: 03/21/2024 09:11 AM ET From: LAKESHA SQUIRES To: SLEEP_MEDICINE_SERVICE-WHAV@ Subject: General:Inspire-Sleep Thank you for your prompt reply. Vijay /janine/ LONNIE MOORE MD ATTENDING Signed: 03/21/2024 09:13 LONNIE MOORE [facility]
--- OUTSIDE RECORDS SUMMARY | 2024-06-03 08:58 | XMS_ITS | Encounter Summary ---
Author Name [facility] [place] [facility] [place] Organization [facility] [place] Address [address] [place] [address] Care Team Providers Care Supervisor Claims Name Role Phone ARIEL INFANTE Primary Care Provider Ismael patel Insurance Providers: [...] Parra's Name Patient's Relationship to Policy Parra [facility] Dec 19, 2015 [id number] TANA [employer] PATIENT [facility] Dec 19, 2015 [id number] [phone] LAKESHA NGO PATIENT [facility] May 29, 2012 [id number] [phone] TANA [employer] PATIENT Selected Encounter This section includes the information on record at HI for the Encounter. Date/Time Encounter Type Encounter Description Reason Provider Source Jun 27, 2023 08:44 AM Outpatient Encounter PRIMARY CARE/MEDICINE ROULA GUALLPA Encounter Template Text not used by VA Plan of Treatment: Future Appointments (+ 6 months) and Future Tests (+/- 45 days) The Plan of Treatment section includes future care activities for the patient from all [facility] [place] This section includes future appointments and future orders which are active, pending or scheduled. Future Appointments This section includes appointments that were scheduled to occur 6 months from the date of the Encounter, up to a maximum of 20 appointments. The data comes from all HI treatment facilities. Appointment Date/Time Appointment Type Appointme nt Facility Name Jun 28, 2023 08:30 AM AMBULATORY - PSYCHIATRY [facility] Jun 29, 2023 01:00 PM AMBULATORY - MEDICINE [place] [facility] [place] [facility] Jul 03, 2023 07:00 AM AMBULATORY - REHAB MEDICIN E [facility] [place] [facility] Jul 11, 2023 01:30 PM AMBULATORY - MEDICINE [facility] Jul 25, 2023 01:00 PM AMBULATORY - REHAB MEDICIN E [facility] [place] [facility] Aug 09, 2023 08:30 AM AMBULATORY - PSYCHIATRY [facility] Aug 18, 2023 09:00 AM AMBULATORY - REHAB MEDICIN E [facility] [place] [facility] Aug 24, 2023 09:00 AM AMBULATORY - REHAB MEDICIN E [facility] [place] [facility] Aug 28, 2023 08:45 AM AMBULATORY - MEDICINE [facility] [place] [facility] Aug 29, 2023 10:43 AM [facility]ULATORY - [facility] Sep 22, 2023 07:30 AM AMBULATORY - REHAB MEDICIN E [facility] [place] [facility] September 27, 2023 10:00 AM AMBULATORY - MEDICINE [facility] [place] [facility] October 18, 2023 03:30 PM AMBULATORY - REHAB MEDICIN E [facility] [place] [facility] October 26, 2023 02:00 PM AMBULATORY - MEDICINE [facility] Nov 09, 2023 08:30 AM AMBULATORY - PSYCHIATRY [facility] Lab Results: +/- 30 days of the encounter This section includes the Chemistry and Hematology Lab Results on record with [place] for the patient. Radiology Reports and Pathology Reports are provided separately, in subsequent sections. Lab Results This section contains the Chemistry/Hematology Results that were resulted 30 days before or 30 daysafter the date of the Encounter. Date/Time Source Result Type Result - Unit Interpretation Reference Range Comment Jun 22, 2023 10:28 AM [facility] LIVER FUNCTION Specimen Type: SERUM No comment entered. Ordering Provider: ARIEL INFANTE Report Released Date/Time: Jun 22, 2023 09:13 AM Reporting Lab: [address] [address] Performing Lab: [address] [address] PROTEIN,TOTAL 7.2 g/dL 6.0-8.3 ALBUMIN 4.6 g/dL 3.5-5.0 ALKALINE PHOSPHATASE 40 U/L 40-150 AST 26 U/L 5-34 ALT 37 U/L BILIRUBIN, TOTAL 0.8 mg/dL 0.2-1.2 Jun 22, 2023 10:28 AM [facility] CBC Specimen Type: BLOOD No comment entered. Ordering Provider: ARIEL INFANTE Report Released Date/Time: Jun 22, 2023 09:13 AM Reporting Lab: [address] [address] Performing Lab: [address] [address] WBC 6.16 10*3/uL 4.50-11.00 RBC 5.11 10*6/uL 4.23-5.66 HGB 15.9 g/dL 12.8-17 HCT 47.1 39.2-50.4 MCV 92.2 fL 82-99 MCHC 33.8 g/dL 30.8-35.1 PLT 193 10*3/uL 140-360 RDW-CV 12.4 12.0-16.0 MCH 31.1 pg 26.2-32.6 Jun 22, 2023 10:28 AM [facility] HEMOGLOBIN A1C PANEL Specimen Type: BLOOD Comment: Values obtained from A1C measurements can vary. For atypical A1C assays, a reported value of 7.0 could actually be between 6.72 and 7.28 if measured by a reference method. A reported value of 9.0 could actually be between 8.73 and 9.27. Ref: http://www.ngs p.org/CAPdata. asp Ordering Provider: ARIEL INFANTE Report Released Date/Time: Jun 22, 2023 09:13 AM Reporting Lab: [facility] [address] [facility] [address] Performing Lab: [address] [address] HEMOGLOBIN A1C 5.7 H 4.0-5.6 Jun 22, 2023 10:28 AM [facility] BASIC METABOLIC PANEL (fasting) Specimen Type: SERUM No comment entered. Ordering Provider: ARIEL INFANTE Report Released Date/Time: Jun 22, 2023 09:13 AM Reporting Lab: [facility] [address] [facility] [address] Performing Lab: [facility] [address] [facility] [address] UREA NITROGEN 23 mg/dL 7-25 GLUCOSE 123 mg/dL H 65-100 SODIUM 139 mmol/L 135-145 POTASSIUM 4.5 mmol/L 3.5-5.0 CHLORIDE 102 mmol/L 100-110 CO2 29 meq/L 20-30 CREATININE, Serum 0.81 mg/dL 0.50-1.40 eGFR(CKD-EPI 2020) >90 mL/min >60 Jun 22, 2023 10:28 AM [facility] PSA Specimen Type: SERUM No comment entered. Ordering Provider: ARIEL INFANTE Report Released Date/Time: Jun 22, 2023 09:13 AM Reporting Lab: [facility] [address] [facility] [address] Performing Lab: [address] [address] PSA 1.78 ng/mL 0.00-4.00 Jun 22, 2023 10:28 AM [facility] LIPID PANEL FASTING Specimen Type: SERUM No comment entered. Ordering Provider: ARIEL INFANTE Report Released Date/Time: Jun 22, 2023 09:13 AM Reporting Lab: [facility] [place] [facility] [address] [facility] [address] Performing Lab: [place] [facility] [place] [facility] [address] [facility] [address] CHOLESTEROL 144 mg/dL TRIGLYCERIDE 48 mg/dL 0-150 LDL calculated 70 mg/dL 0-129 CHOL/HDL 2.3 HDL CHOLESTEROL 64 mg/dL H 40-60 Social History: Smoking Status (Most current) and Tobacco Use (All prior to encounter date) This section includes the most current, and the historical, smoking and tobacco- related health factors from the HI facility where the Encounter took place. Current Smoking Status This section includes the most current smoking, or tobacco-related health factor, from the HI facility where the Encounter took place. Date/Time Current Smoking Status Comment [facility] ity Jun 22, 2023 09:00 AM VA-TOBACCO DOESNT USE WI 30 MIN [facility] Tobacco Use History This section includes a history of the smoking, or tobacco-related health factors, that were collected on or before the date of the Encounter. The data comes from the HI facility where the Encounter took place. Date/Time Smoking Status/Tobacco Use Comment F acility Jun 22, 2023 09:00 AM VA-TOBACCO USE 30 YEARS OR MORE [facility] [place] [facility] Jun 22, 2023 09:00 AM VA-TOBACCO USE ADVICE [facility] [place] [facility] Jun 22, 2023 09:00 AM VA-TOBACCO USE [employer] NO [facility] [place] [facility] Jun 22, 2023 09:00 AM VA-TOBACCO USE MED NO [facility] [place] [facility] Jun 22, 2023 09:00 AM VA-TOBACCO USER SOME DAYS [facility] [place] [facility] Jan 13, 2022 02:00 PM VA-TOBACCO NEVER USED [facility] [facility] Jul 06, 2009 03:46 PM QUIT TOBACCO USE > 7 YEARS AGO [facility] [facility] Advance Directives: All historical and current Section Date Range: From patient's date of to the date document was created. This section includes ALL of a patient's completed or amended [place] Advance and Rescinded Directives. The entries below indicate that a directive exists for the patient, but an actual copy is not included with this document. The data comes from all [place] facilities. Date Advance Directives Provider Source Jun 29, 2023 ADVANCE DIRECTIVE JAMES GALLO [facility] Sep 19, 2017 ADVANCE DIRECTIVE DINA MCGINNIS [facility] Encounter Notes: All associated encounter notes This section contains the clinical notes associated to the Encounter. Date/Time Encounter Note(s) Provider Source Jun 27, 2023 08:44 AM PRIMARY CARE SECURE MESSAGING: LOCAL TITLE: PRIMARY CARE SECURE MESSAGING STANDARD TITLE: PRIMARY CARE SECURE MESSAGING DATE OF NOTE: JUN 27, 2023@08:44 ENTRY DATE: JUN 27, 2023@08:44:51 AUTHOR: ROULA GUALLPA COSIGNER: URGENCY: STATUS: COMPLETED ------Original Message ----- Sent: 06/26/2023 05:24 PM ET From: LAKESHA SQUIRES To: Alex INFANTE _ PRIMARY CARE_[facility] Subject: General:Upcoming Appointment Good Afternoon Dr. Infante, I thought it would be prudent to email you with a list of things that I'd like to discuss with you, if time allows. When we meet this , I have concerns relating to my diabetes and ongoing neuropathy. I'm not sure if there is a medication that I'm on that amplifies this, but it has become less and less tolerable. In relation to my medication, as you can see, my A1C has been well under control, with the lowest being 5.3, as of January,. With the decreasing A1C over the past few years, I'm still prescribed 40 units of insulin, each evening. My last Doctor did allow me to reduce, as appropriate and I'm now down to 10 units, daily. I take 1000 of Metformin, 500 am and 500 pm. I guess the big question is, can I reduce the metformin and any other meds that are diabetic related? Next, I have been struggling with extreme right knee pain and now, I'll include my left knee as well. I do my best to control it with ibuprofen and , as needed, but Tylenol, but the bottom line is that moving in and out of the car, walking, at most times, are challenging and painful. I would like to explore the possibility of changing my [place] plates to disabled plates. I've done great work in weight loss, nearly 70 pounds, over the past year, but that hasn't been helpful. Lastly, I have an Inspire Sleep, that was going to be implanted by the HI, but Pat had other ideas and I just couldn't catch a break and kept loosing my bed at [place]. I ended up using my 's insurance and had it done at [facility]. That Sleep doc has since retired and I'd like to continue my care with the HI respiratory folks, if that's possible. Looking forward to our appointment, Lakesha Squires (Joe) ------Original Message ----- Sent: 06/27/2023 08:44 AM ET From: ROULA GUALLPA To: LAKESHA SQUIRES Subject: General:Upcoming Appointment [facility]... I will forward your issues for dr. Infante to review to her today. Your labs are back and here they are for you to review: Reporting Lab: [facility] [CLIA# [id number]] [address] [place] [address] Report Released Date/Time: Jun 22, 2023@13:56 Provider: ARIEL IFNANTE Specimen: SERUM. [id number] Specimen Collection Date: Jun 22, 2023@10:28 Test name Result units Ref. range Site Code PSA 1.78 ng/mL 0.00 - 4.00 [631] Eval: PSA assay method = Chemiluminescent microparticle Eval: immunoassay by [employer] CREATININE, Serum 0.81 mg/dL 0.50 - 1.40 [631] eGFR(CKD-EPI 2020) >90 mL/min Ref: >=60 [631] SODIUM 139 mmol/L 135 - 145 [631] POTASSIUM 4.5 mmol/L 3.5 - 5.0 [631] CHLORIDE 102 mmol/L 100 - 110 [631] CO2 29 mEq/L 20 - 30 [631] UREA NITROGEN 23 mg/dL 7 - 25 [631] GLUCOSE 123 H mg/dL 65 - 100 [631] Eval: Reference range prior to 01/12/04 was 65-110 mg/dL PROTEIN,TOTAL 7.2 g/dL 6.0 - 8.3 [631] ALBUMIN 4.6 g/dL 3.5 - 5.0 [631] ALKALINE PHOSPHATASE 40 U/L 40 - 150 [631] AST 26 U/L 5 - 34 [631] BILIRUBIN, TOTAL 0.8 mg/dL 0.2 - 1.2 [631] CHOLESTEROL 144 mg/dL <7 - 199 [631] TRIGLYCERIDE 48 mg/dL 0 - 150 [631] Eval: Triglyceride & cLDL results may be affected by nonfasting state. LDL calculated 70 mg/dL 0 - 129 [631] Eval: Evaluation of cardiovascular risk is based on the following range of Eval: values: Eval: Desirable: <100 mg/dL Eval: Low risk: 100-129 mg/dL Eval: Borderline high: 130-159 mg/dL Eval: High:160-189 mg/dL Eval: Very high: > or = 190 mg/dL Eval: Eval: LDL calculated using Friedewald formula. CHOL/HDL 2.3 [631] ALT 37 U/L <6 - 55 [631] HDL CHOLESTEROL 64 H mg/dL 40 - 60 [631] Reporting Lab: [facility]É [facility] [CLIA# [id number]] [address] [place] [id number] Report Released Date/Time: Jun 22, 2023@14:11 Provider: ARIEL INFANTE Specimen: BLOOD. [facility] [id number] Specimen Collection Date: Jun 22, 2023@10:28 Test name Result units Ref. range Site Code HEMOGLOBIN A1C 5.7 H % 4.0 - 5.6 [631] Eval: Reference Ranges: 4.0 - 5.6: normal, 5.7 - 6.4: pre-diabetes, Eval: >=6.5 % diabetic range- if patient has not yet been diagnosed Eval: with diabetes see [place]-[facility] Diabetes Guidelines for more guidance. Eval: http://www.healthquality.v a.gov/guidelines/CD/diabet es/ Comment: Values obtained from A1C measurements can vary. For atypical A1C assays, a reported value of 7.0 could actually be between 6.72 and 7.28 if measured by a reference method. A reported value of 9.0 could actually be between 8.73 and 9.27. Ref: http://www.ngsp.org/CAPdat a.asp Reporting Lab: [facility] [CLIA# [id number]] [address] [place] [id number] Report Released Date/Time: Jun 22, 2023@12:59 Provider: ARIEL INFANTE Specimen: BLOOD. TIFFANIE [id number] Specimen Collection Date: Jun 22, 2023@10:28 Test name Result units Ref. range Site Code WBC 6.16 K/cmm 4.50 - 11.00 [631] RBC 5.11 M/cmm 4.23 - 5.66 [631] HGB 15.9 g/dL 12.8 - 17 [631] HCT 47.1 % 39.2 - 50.4 [631] MCV 92.2 fl 82 - 99 [631] MCH 31.1 pg 26.2 - 32.6 [631] MCHC 33.8 g/dL 30.8 - 35.1 [631] RDW-CV 12.4 % 12.0 - 16.0 [631] PLT 193 K/cmm 140 - 360 [631] Jose J Guallpa MSN Ed., BSN, [place] [id number] Ext [phone] /es/ ROULA GUALLPA MSN Ed., BSN COIN BOX COLLECTOR NURSE Signed: 06/27/2023 08:44 Receipt Acknowledged By: 06/27/2023 09:32 /es/ ARIEL INFANTE D.O. PHYSICIAN ROULA GUALLPA [facility]
--- OUTSIDE RECORDS SUMMARY | 2024-06-03 08:58 | XMS_ITS | Encounter Summary ---
Author Name [facility] [place] [facility] [place] [facility] [place] Address [address] [place] [id number] Care Team Providers Care Vertical Roll Operator Name Role Phone ARIEL JIMENEZ Primary [...] Parra's Name Patient's Relationship to Policy Parra [facility] Dec 19, 2015 [id number] [phone] [id number] [employer] PATIENT [facility] Dec 19, 2015 [id number] [phone] [employer] [facility] May 29, 2012 [id number] [employer] PATIENT Selected Encounter This section includes the information on record at [place] for the Encounter. Date/Time Encounter Type Encounter Description Reason Provider Source Jun 28, 2023 08:30 AM OFFICE O/P EST MOD 30 MIN [facility] - IND ICD-10-CM F43.23 Adjustment disorder with mixed anxiety and depressed mood TIANNA NOBLE Sammy Encounter Template Text not used by [place] Assessments - Encounter Diagnoses This section includes the primary and secondary diagnoses documented for the Encounter. Date/Time Primary/Secondary Diagnosis Diagnosis Name Provider Source Jun 28, 2023 10:54 AM PRIMARY Adjustment disorder with mixed anxiety and depressed mood TIANNA NOBLE [facility] Plan of Treatment: Future Appointments (+ 6 months) and Future Tests (+/- 45 days) The Plan of Treatment section includes future care activities for the patient from all [place] treatmentfacilities. This section includes future appointments and future orders which are active, pending or scheduled. Future Appointments This section includes appointments that were scheduled to occur 6 months from the date of the Encounter, up to a maximum of 20 appointments. The data comes from all [place] treatment facilities. Appointment Date/Time Appointment Type Appointme nt Facility Name Jun 29, 2023 01:00 PM [facility] Jul 03, 2023 07:00 AM AMBULATORY - REHAB [facility]ICIN [facility] Jul 11, 2023 01:30 PM AMBULATORY - MEDICINE [facility] Jul 25, 2023 01:00 PM AMBULATORY - REHAB MEDICIN [facility] Aug 09, 2023 08:30 AM AMBULATORY - PSYCHIATRY [facility] Aug 18, 2023 09:00 AM AMBULATORY - REHAB MEDICIN [facility] Aug 24, 2023 09:00 AM AMBULATORY - [facility]HAB MEDICIN [facility] Aug 28, 2023 08:45 AM [facility] Aug 29, 2023 10:43 AM AMBULATORY [facility] MED[facility] Sep 22, 2023 07:30 AM AMBULATORY - REHAB MEDICIN [facility] September 27, 2023 10:00 AM [facility]UL[facility]ORY [facility] October 18, 2023 03:30 PM AMBULATORY - REHAB MEDICIN [facility] October 26, 2023 02:00 PM AMBULATORY - MEDICINE [facility] Nov 09, 2023 08:30 AM AMBULATORY - PSYCHIATRY [facility] Lab Results: +/- 30 days of the encounter This section includes the Chemistry and Hematology Lab Results on record with [place] for the patient. Radiology Reports and Pathology Reports are provided separately, in subsequent sections. Lab Results This section contains the Chemistry/Hematology Results that were resulted 30 days before or 30 daysafter the date of the Encounter. Date/Time Source Result Type Result - Unit Interpretation Reference Range Comment Jun 22, 2023 10:28 AM [facility] LIVER FUNCTION Specimen Type: SERUM No comment entered. Ordering Provider: ARIEL JIMENEZ Report Released Date/Time: Jun 22, 2023 09:13 AM Reporting Lab: [address] [address] Performing Lab: [address] [address] PROTEIN,TOTAL 7.2 g/dL 6.0-8.3 ALBUMIN 4.6 g/dL 3.5-5.0 ALKALINE PHOSPHATASE 40 U/L 40-150 AST 26 U/L 5-34 ALT 37 U/L BILIRUBIN, TOTAL 0.8 mg/dL 0.2-1.2 Jun 22, 2023 10:28 AM [facility] CBC Specimen Type: BLOOD No comment entered. Ordering Provider: ARIEL JIMENEZ Report Released Date/Time: Jun 22, 2023 09:13 AM Reporting Lab: [address] [address] Performing Lab: [address] [address] WBC 6.16 10*3/uL 4.50-11.00 RBC 5.11 10*6/uL 4.23-5.66 HGB 15.9 g/dL 12.8-17 HCT 47.1 39.2-50.4 MCV 92.2 fL 82-99 MCHC 33.8 g/dL 30.8-35.1 PLT 193 10*3/uL 140-360 RDW-CV 12.4 12.0-16.0 MCH 31.1 pg 26.2-32.6 Jun 22, 2023 10:28 AM [facility] HEMOGLOBIN A1C PANEL Specimen Type: BLOOD Comment: [...] Jun 22, 2023 09:13 AM Reporting Lab: [facility] [address] [facility] [phone] Performing Lab: [address] [address] HEMOGLOBIN A1C 5.7 H 4.0-5.6 Jun 22, 2023 10:28 AM [facility] BASIC METABOLIC PANEL (fasting) Specimen Type: SERUM No comment entered. Ordering Provider: ARIEL JIMENEZ Report Released Date/Time: Jun 22, 2023 09:13 AM Reporting Lab: [facility] [address] [facility] [address] Performing Lab: [facility] [address] [facility] [phone] UREA NITROGEN 23 mg/dL 7-25 GLUCOSE 123 mg/dL H 65-100 SODIUM 139 mmol/L 135-145 POTASSIUM 4.5 mmol/L 3.5-5.0 CHLORIDE 102 mmol/L 100-110 CO2 29 meq/L 20-30 CREATININE, Serum 0.81 mg/dL 0.50-1.40 eGFR(CKD-EPI 2020) >90 mL/min >60 Jun 22, 2023 10:28 AM [facility] LIPID PANEL FASTING Specimen Type: SERUM No comment entered. Ordering Provider: ARIEL JIMENEZ Report Released Date/Time: Jun 22, 2023 09:13 AM Reporting Lab: [facility] [address] [facility] [address] Performing Lab: [facility] [address] [facility] [address] CHOLESTEROL 144 mg/dL TRIGLYCERIDE 48 mg/dL 0-150 LDL calculated 70 mg/dL 0-129 CHOL/HDL 2.3 HDL CHOLESTEROL 64 mg/dL H 40-60 Jun 22, 2023 10:28 AM [facility] PSA Specimen Type: SERUM No comment entered. Ordering Provider: ARIEL JIMENEZ Report Released Date/Time: Jun 22, 2023 09:13 AM Reporting Lab: [facility] [address] [facility] [address] Performing Lab: [facility] [address] [facility] [address] PSA 1.78 ng/mL 0.00-4.00 Social History: Smoking Status (Most current) and Tobacco Use (All prior to encounter date) This section includes the most current, and the historical, smoking and tobacco- related health factors from the [place] facility where the Encounter took place. Current Smoking Status This section includes the most current smoking, or tobacco-related health factor, from the [place] facility where the Encounter took place. Date/Time Current Smoking Status Comment Facil ity October 23, 2020 01:00 PM VA-TOBACCO NEVER USED [facility] Tobacco Use History This section includes a history of the smoking, or tobacco-related health factors, that were collected on or before the date of the Encounter. The data comes from the [place] facility where the Encounter took place. 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 This section includes ALL of a patient's completed or amended [place] Advance and Rescinded Directives. The entries below indicate that a directive exists for the patient, but an actual copy is not included with this document. The data comes from all [place] facilities. Date Advance Directives Provider Source Jun 29, 2023 ADVANCE DIRECTIVE JAMES GALLO [facility] Sep 19, 2017 ADVANCE DIRECTIVE DINA MCGINNIS [facility] Encounter Notes: All associated encounter notes This section contains the clinical notes associated to the Encounter. Date/Time Encounter Note(s) Provider Source Jun 28, 2023 02:56 PM MENTAL HEALTH [place] TMENT PLAN NOTE: LOCAL TITLE: MH TREATMENT PLAN STANDARD TITLE: MENTAL HEALTH TREATMENT PLAN NOTE DATE OF NOTE: JUN 28, 2023@14:56:38 ENTRY DATE: JUN 28, 2023@14:56:50 AUTHOR: TIANNA NOBLE EXP COSIGNER: URGENCY: STATUS: COMPLETED MH TREATMENT PLAN - May, @ 02:56PM Visit Date: May, @ 08:30 - SPO/MHC/REAL SLIP COVER SEAMSTRESS: TIANNA NOBLE / [facility] TEAM MEMBERS: TIANNA NOBLE: PSYCHIATRIST RISK ASSESSMENT (DANGER TO SELF AND OTHERS): Low risk to self or others PATIENT'S STRENGTHS/ABILITIES: Education Leadership skills MENTAL HEALTH DIAGNOSES AND RELEVANT MEDICAL CONDITIONS: Adjustment disorder with anxious mood ([facility] [id number]) TREATMENT PLAN: Problem: Anxiety Goal: Maintenance of gains Objective: Minimal interference on life's activitites due to anxiety Projected Target Date: 04/22/2021 Intervention: Take meds, attend MH appts Treating Specialty: SPOPC-MHC Renewal Date: 06/27/2024 Entered Treatment: 11/26/2020 @ 04:09PM Anticipated Discharge: None Actual Discharge: None /janine/ TIANNA NOBLE DO Psychiatrist Signed: 06/28/2023 14:56 TIANNA NOBLE Jun 28, 2023 10:43 AM PSYCHIATRY NOTE: LOCAL TITLE: PSYCHIATRY NOTE STANDARD TITLE: PSYCHIATRY NOTE DATE OF NOTE: JUN 28, 2023@10:43 ENTRY DATE: JUN 28, 2023@10:43:20 AUTHOR: TIANNA NOBLE EXP COSIGNER: URGENCY: STATUS: COMPLETED Time spent: 21-30 minutes >16 mins supportive therapy. The presents today for follow-up. 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 He has been keeping busy in his longterm, building various things for friends and customers. He is looking forward to taking the RV out this spring and summer. They'll be driving to [place], [place] for the hot [place] [employer] festival. Later this summer they plan on spending weeks in [place]. self-discontinued sertraline about a month ago due to concerns over side effects. Since stopping, he reports increased irritability and moodiness. He is interested in an alternative. His has pointed out that he does better when on medication than when off. 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 He is intereste din a handicapped placard and has an appointment with new PCP tomorrow. was cooperative with questions asked. Cognitive exam was grossly intact. TP was logical and organized. TC was pertinent to topic. Speech was of regular rate, rhythm, volume, and tone. Mood was even and affect congruent to theme. He brightened appropriately. He denied SI and HI. Insight and judgment were intact. 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 SUICIDE RISK ASSESSMENT: SUICIDE INQUIRY: IDEATION: Denies ideation. Do you currently have any homicidal ideation? No SUBSTANCE USE: alcohol--one to two drinks two to three times a week, on average PSYCH MEDICATION HISTORY: [place] took one antidepressant about 10 years ago--he cannot recall the name. It caused ED. Trazodone--next-day sedation sertraline--was helpful, but probably contributed to ED ACTIVE OUTPATIENT MEDICATIONS (including Supplies): Active Outpatient Medications (including Supplies): ACCU-CHEK GUIDE (GLUCOSE) TEST STRIP USE 1 STRIP TO TEST ACTIVE BLOOD SUGARS ONCE DAILY ATORVASTATIN CALCIUM 80MG TAB TAKE ONE-HALF TABLET BY ACTIVE (S) MOUTH EVERY EVENING AFTER SUPPER FOR CHOLESTEROL BUPROPION HCL 150MG 12HR SA TAB TAKE ONE TABLET BY MOUTH ACTIVE EVERY MORNING FOR MOOD EMPAGLIFLOZIN 10MG TAB TAKE ONE TABLET BY MOUTH ONCE DAILY ACTIVE (S) FOR DIABETES HYDROCHLOROTHIAZIDE 12.5MG CAP TAKE ONE CAPSULE BY MOUTH ACTIVE DAILY LISINOPRIL 5MG TAB TAKE ONE TABLET BY MOUTH DAILY TO ACTIVE CONTROL BLOOD PRESSURE NEEDLE,PEN 31G,8MM USE 1 NEEDLE SUBCUTANEOUSLY ONCE DAILY ACTIVE (S) FOR USE WITH INSULIN PENS SEMAGLUTIDE 1MG/0.75ML INJ PEN 3ML INJECT 1MG ACTIVE SUBCUTANEOUSLY ONCE A WEEK FOR DIABETES (REPLACES DULAGLUTIDE [TRULICITY]) Non-VA ALBUTEROL INHALER INHL,ORAL 2 PUFFS BY MOUTH EVERY ACTIVE 4 HOURS NEEDED Non-VA ASPIRIN 81MG EC TAB 81MG BY MOUTH DAILY ACTIVE Non-VA LORATADINE 10MG TAB 10MG BY MOUTH ONCE DAILY ACTIVE NEEDED ALLERGIES: Patient has answered NKA I discussed the findings and plan with the patient. I educated the patient about their mental health condition. repeated back the plan and education. IMPRESSION (DSM-5): Adjustment disorder with depressed mood PLAN: [place] self-discontinued sertraline about a month ago due to concerns over side effects. Since stopping, he reports increased irritability and moodiness. He is interested in an alternative. I discussed how bupropion may havefewer sexual side effects. There is no history of seizure. Medication education was provided. He expressed an interest in medication. Will initiate bupropion SA 150mg QAM and titrate as indicated. Labwork from 06/22/2023 reviewed. At previous visit he voiced concerns about memory. No complaints today. Discussed that for now we would keep an eye on his memory. Discussed the role that stress/ anxiety can have on one's memory. I encouraged recreational activities. If he feels that his memory is worsening or causing dysfunction, he will inform me via secure message. Will then consider a formal Neuropsych test. I offered referral in the past, and his preference is to hold off for now. The patient denied suicidal and violent ideation, but the suicide prevention information and hotline were reviewed with the patient. The patient also understands to call 911 or to go to ER in the event of an emergency. I completed a thorough risk assessment. In my clinical opinion, he is at low-risk for harm to self and others. He met with [facility] for individual therapy--declines offer for new therapist, but will let me know if he changes his mind. The rationale for the psychiatric medications and the alternatives to treatment were discussed with the patient. The side effect profile of the psychiatric medications was reviewed with the patient. This also included discussion of potential drug interactions with the psychiatric medication. Patient demonstrated reasonable understanding of the medication side effects and the above issues. The benefits of psychiatric medications outweigh risks for this patient. I asked the patient to call the clinic or to come to open access if the patient does not like the effect of psychiatric medication or if has side effects with psychiatric medication. Follow-up with PCP for regular health maintenance. FOLLOW-UP: 6 weeks, sooner if needed Medication Reconciliation: Outpatient: Has the patient been taking medications as documented in the EMLR? YES: The patient has been taking medications as documented in the EMLR. Essential Medication List for Review used to complete this medication reconciliation. INCLUDED IN THIS LIST: Alphabetical list of active outpatient prescriptions dispensed from this [facility] (local) and dispensed from another VA or [facility]D facility (remote) as well as inpatient orders (local, pending and active), local clinic medications, locally documented non-VA medications, and local prescriptions that have or been discontinued in the past 90 days. - All changes in medications, including all non-VA/Herbal/OTC medications were entered into CPRS. - If there were any medications the patient should no longer take, they were discontinued. - The patient/caregiver was instructed to update this list, discard old lists, and take this list to the next appointment, whether with a VA or non-VA provider. /janine/ TIANNA NOBLE DO Psychiatrist Signed: 06/28/2023 10:54 TIANNA NOBLE
--- OUTSIDE RECORDS SUMMARY | 2024-06-03 08:58 | XMS_ITS | Encounter Summary ---
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 Date/Time Encounter Type Encounter Description Reason Pro vider Source Jun 19, 2023 07:23 AM Outpatient Encounter PRIMARY CARE/MEDICINE IHE Encounter Template Text not used by VA Plan of Treatment: Future Appointments (+ 6 months) and Future Tests (+/- 45 days) The Plan of Treatment section includes future care activities for the patient from all [place] [facility] This section includes future appointments and future orders which are active, pending or scheduled. Future Appointments This section includes appointments that were scheduled to occur 6 months from the date of the Encounter, up to a maximum of 20 appointments. The data comes from all [place] treatment facilities. Appointment Date/Time Appointment Type Appointme nt Facility Name Jun 28, 2023 08:30 AM AMBULATORY - PSYCHIATRY [facility] Jun 29, 2023 01:00 PM AMBULATORY - MEDICINE [place] [facility] [place] [facility] Jul 03, 2023 07:00 AM AMBULATORY - REHAB MEDICIN [place] [facility] [place] [facility] Jul 11, 2023 01:30 PM AMBULATORY - MEDICINE [facility] Jul 25, 2023 01:00 PM AMBULATORY - REHAB MEDICIN E [facility] [place] [facility] Aug 09, 2023 08:30 AM AMBULATORY - PSYCHIATRY [facility] Aug 18, 2023 09:00 AM AMBULATORY - REHAB MEDICIN E [facility] [place] [facility] Aug 24, 2023 09:00 AM AMBULATORY - REHAB MEDICIN E [facility] [place] [facility] Aug 28, 2023 08:45 AM AMBULATORY - MEDICINE [place] [facility] [place] [facility] Aug 29, 2023 10:43 AM AMBULATORY - MEDICINE [facility] Sep 22, 2023 07:30 AM AMBULATORY - REHAB MEDICIN E [facility] [place] [facility] September 27, 2023 10:00 AM AMBULATORY - MEDICINE [place] [facility] [place] [facility] October 18, 2023 03:30 PM AMBULATORY - REHAB MEDICIN E [facility] [place] [facility] October 26, 2023 02:00 PM AMBULATORY - MEDICINE [facility] Nov 09, 2023 08:30 AM AMBULATORY - PSYCHIATRY [facility] Lab Results: +/- 30 days of the encounter This section includes the Chemistry and Hematology Lab Results on record with [place] for the patient. Radiology Reports and Pathology Reports are provided separately, in subsequent sections. Lab Results This section contains the Chemistry/Hematology Results that were resulted 30 days before or 30 daysafter the date of the Encounter. Date/Time Source Result Type Result - Unit Interpretation Reference Range Comment Jun 22, 2023 10:28 AM [facility] LIVER FUNCTION Specimen Type: SERUM No comment entered. Ordering Provider: ARIEL JIMENEZ Report Released Date/Time: Jun 22, 2023 09:13 AM Reporting Lab: [address] [address] Performing Lab: [address] [address] PROTEIN,TOTAL 7.2 g/dL 6.0-8.3 ALBUMIN 4.6 g/dL 3.5-5.0 ALKALINE PHOSPHATASE 40 U/L 40-150 AST 26 U/L 5-34 ALT 37 U/L BILIRUBIN, TOTAL 0.8 mg/dL 0.2-1.2 Jun 22, 2023 10:28 AM [facility] CBC Specimen Type: BLOOD No comment entered. Ordering Provider: ARIEL JIMENEZ Report Released Date/Time: Jun 22, 2023 09:13 AM Reporting Lab: [address] [address] Performing Lab: [address] [address] WBC 6.16 10*3/uL 4.50-11.00 RBC 5.11 10*6/uL 4.23-5.66 HGB 15.9 g/dL 12.8-17 HCT 47.1 39.2-50.4 MCV 92.2 fL 82-99 MCHC 33.8 g/dL 30.8-35.1 PLT 193 10*3/uL 140-360 RDW-CV 12.4 12.0-16.0 MCH 31.1 pg 26.2-32.6 Jun 22, 2023 10:28 AM [facility] BASIC METABOLIC PANEL (fasting) Specimen Type: SERUM No comment entered. Ordering Provider: ARIEL JIMENEZ Report Released Date/Time: Jun 22, 2023 09:13 AM Reporting Lab: [address] [place] [address] Performing Lab: [facility] [address] [facility] [address] UREA NITROGEN 23 mg/dL 7-25 GLUCOSE 123 mg/dL H 65-100 SODIUM 139 mmol/L 135-145 POTASSIUM 4.5 mmol/L 3.5-5.0 CHLORIDE 102 mmol/L 100-110 CO2 29 meq/L 20-30 CREATININE, Serum 0.81 mg/dL 0.50-1.40 eGFR(CKD-EPI 2020) >90 mL/min >60 Jun 22, 2023 10:28 AM [facility] PSA Specimen Type: SERUM No comment entered. Ordering Provider: ARIEL JIMENEZ Report Released Date/Time: Jun 22, 2023 09:13 AM Reporting Lab: [facility] [address] [facility] [address] Performing Lab: [facility] [address] [facility] [address] PSA 1.78 ng/mL 0.00-4.00 Jun 22, 2023 10:28 AM [facility] LIPID PANEL FASTING Specimen Type: SERUM No comment entered. Ordering Provider: ARIEL JIMENEZ Report Released Date/Time: Jun 22, 2023 09:13 AM Reporting Lab: [facility] [address] [facility] [address] Performing Lab: [address] [address] CHOLESTEROL 144 mg/dL TRIGLYCERIDE 48 mg/dL 0-150 LDL calculated 70 mg/dL 0-129 CHOL/HDL 2.3 HDL CHOLESTEROL 64 mg/dL H 40-60 Jun 22, 2023 10:28 AM [facility] HEMOGLOBIN A1C PANEL Specimen Type: BLOOD [...] Jun 22, 2023 09:13 AM Reporting Lab: [facility] [address] [facility] [address] Performing Lab: [facility] [address] [facility] [address] HEMOGLOBIN A1C 5.7 H 4.0-5.6 Social History: Smoking Status (Most current) and Tobacco Use (All prior to encounter date) This section includes the most current, and the historical, smoking and tobacco- related health factors from the [place] facility where the Encounter took place. Current Smoking Status This section includes the most current smoking, or tobacco-related health factor, from the [place] facility where the Encounter took place. Date/Time Current Smoking Status Comment Rosendo ity Jan 13, 2022 02:00 PM VA-TOBACCO NEVER USED [facility] Tobacco Use History This section includes a history of the smoking, or tobacco-related health factors, that were collected on or before the date of the Encounter. The data comes from the [place] facility where the Encounter took place. Date/Time Smoking Status/Tobacco Use Comment F acility Jul 06, 2009 03:46 PM QUIT TOBACCO USE > 7 YEARS AGO [facility] Advance Directives: All historical and current Section Date Range: From patient's date of to the date document was created. This section includes ALL of a patient's completed or amended [place] Advance and Rescinded Directives. The entries below indicate that a directive exists for the patient, but an actual copy is not included with this document. The data comes from all [place] facilities. Date Advance Directives Provider Source Jun 29, 2023 ADVANCE DIRECTIVE JAMES GALLO [facility] Sep 19, 2017 ADVANCE DIRECTIVE DINA MCGINNIS [facility] Encounter Notes: All associated encounter notes This section contains the clinical notes associated to the Encounter. Date/Time Encounter Note(s) Provider Source Jun 19, 2023 07:23 AM PRIMARY CARE SECUR E MESSAGING: LOCAL TITLE: PRIMARY CARE SECURE MESSAGING STANDARD TITLE: PRIMARY CARE SECURE MESSAGING DATE OF NOTE: JUN 19, 2023@07:23 ENTRY DATE: JUN 19, 2023@07:23:20 AUTHOR: CHELA JIMÉNEZ EXP COSIGNER: URGENCY: STATUS: COMPLETED PRIMARY CARE SECURE MESSAGING Has ADDENDA ------Original Message ---- Sent: 06/18/2023 05:59 PM ET From: LAKESHA SQUIRES To: MAC DIAMOND RY [facility] Subject: Medication:In need of refills Good Morning Doc, I need to refill my Empagliflozin and my Atorvastatin, both of which are not showing as refillable on the pharmacy tab of [facility]. Thank you, Vijay /janine/ CHELA MONTEMAYOR Signed: 06/19/2023 07:23 Receipt Acknowledged By: 06/19/2023 12:01 /jeff LAWSON RN REGISTERED NURSE 06/21/2023 11:24 /janine/ ADRIAN DOLAN LPN LPN 06/19/2023 ADDENDUM STATUS: COMPLETED Medication request sent to the provider. /jeff LAWSON RN REGISTERED NURSE Signed: 06/19/2023 12:01 CHELA JIMÉNEZ [facility]
--- OUTSIDE RECORDS SUMMARY | 2024-06-03 08:58 | XMS_ITS ---
Author Name [facility] [place] Address [address] [place] [address] Care Team Providers Care Experimental Welder Name Role Phone ARIEL JIMENEZ Primary Care [...] Parra's Name Patient's Relationship to Policy Parra [facility] Dec 19, 2015 [id number] [employer] PATIENT [facility] Dec 19, 2015 [id number] LAKESHA [employer] PATIENT [facility] May 29, 2012 [id number] [employer] PATIENT Selected Encounter This section includes the information on record at [place] for the Encounter. Date/Time Encounter Type Encounter Description Reason Pro vider Source Jun 20, 2023 07:52 AM Outpatient Encounter PRIMARY CARE/MEDICINE IHE Encounter Template Text not used by VA Plan of Treatment: Future Appointments (+ 6 months) and Future Tests (+/- 45 days) The Plan of Treatment section includes future care activities for the patient [facility] This section includes future appointments and future orders which are active, pending or scheduled. Future Appointments This section includes appointments that were scheduled to occur 6 months from the date of the Encounter, up to a maximum of 20 appointments. The data comes from all [place] treatment facilities. Appointment Date/Time Appointment Type Appointme nt Facility Name Jun 28, 2023 08:30 AM AMBULATORY - PSYCHIATRY [facility] Jun 29, 2023 01:00 PM AMBULATORY - MEDICINE [place] [facility] Jul 03, 2023 07:00 AM AMBULATORY - REHAB MEDICIN E [facility] [place] [facility] Jul 11, 2023 01:30 PM AMBULATORY - MEDICINE [facility] Jul 25, 2023 01:00 PM AMBULATORY - REHAB MEDICIN E [facility] [place] [facility] Aug 09, 2023 08:30 AM AMBULATORY - PSYCHIATRY [facility] Aug 18, 2023 09:00 AM AMBULATORY - REHAB MEDICIN E [facility] [place] [facility] Aug 24, 2023 09:00 AM AMBULATORY - REHAB MEDICIN E [facility] [place] [facility] Aug 28, 2023 08:45 AM AMBULATORY - MEDICINE [place] [facility] [place] [facility] Aug 29, 2023 10:43 AM [facility] Sep 22, 2023 07:30 AM AMBULATORY - REHAB MEDICIN E [facility] [place] [facility] September 27, 2023 10:00 AM AMBULATORY - MEDICINE [place] [facility] [place] [facility] October 18, 2023 03:30 PM AMBULATORY - REHAB MEDICIN E [facility] [place] [facility] October 26, 2023 02:00 PM AMBULATORY - MEDICINE [facility] Nov 09, 2023 08:30 AM AMBULATORY - PSYCHIATRY [facility] Lab Results: +/- 30 days of the encounter This section includes the Chemistry and Hematology Lab Results on record with [place] for the patient. Radiology Reports and Pathology Reports are provided separately, in subsequent sections. Lab Results This section contains the Chemistry/Hematology Results that were resulted 30 days before or 30 daysafter the date of the Encounter. Date/Time Source Result Type Result - Unit Interpretation Reference Range Comment Jun 22, 2023 10:28 AM [facility] LIVER FUNCTION Specimen Type: SERUM No comment entered. Ordering Provider: ARIEL JIMENEZ Report Released Date/Time: Jun 22, 2023 09:13 AM Reporting Lab: [address] [address] Performing Lab: [address] [address] PROTEIN,TOTAL 7.2 g/dL 6.0-8.3 ALBUMIN 4.6 g/dL 3.5-5.0 ALKALINE PHOSPHATASE 40 U/L 40-150 AST 26 U/L 5-34 ALT 37 U/L BILIRUBIN, TOTAL 0.8 mg/dL 0.2-1.2 Jun 22, 2023 10:28 AM [facility] CBC Specimen Type: BLOOD No comment entered. Ordering Provider: ARIEL JIMENEZ Report Released Date/Time: Jun 22, 2023 09:13 AM Reporting Lab: [address] [address] Performing Lab: [address] [address] WBC 6.16 10*3/uL 4.50-11.00 RBC 5.11 10*6/uL 4.23-5.66 HGB 15.9 g/dL 12.8-17 HCT 47.1 39.2-50.4 MCV 92.2 fL 82-99 MCHC 33.8 g/dL 30.8-35.1 PLT 193 10*3/uL 140-360 RDW-CV 12.4 12.0-16.0 MCH 31.1 pg 26.2-32.6 Jun 22, 2023 10:28 AM [facility] LIPID PANEL FASTING Specimen Type: SERUM No comment entered. Ordering Provider: ARIEL JIMENEZ Report Released Date/Time: Jun 22, 2023 09:13 AM Reporting Lab: [address] [address] Performing Lab: [facility] [address] [facility] [address] CHOLESTEROL 144 mg/dL TRIGLYCERIDE 48 mg/dL 0-150 LDL calculated 70 mg/dL 0-129 CHOL/HDL 2.3 HDL CHOLESTEROL 64 mg/dL H 40-60 Jun 22, 2023 10:28 AM [facility] BASIC METABOLIC PANEL (fasting) Specimen Type: SERUM No comment entered. Ordering Provider: ARIEL JIMENEZ Report Released Date/Time: Jun 22, 2023 09:13 AM Reporting Lab: [address] [address] Performing Lab: [address] [address] UREA NITROGEN 23 mg/dL 7-25 GLUCOSE 123 mg/dL H 65-100 SODIUM 139 mmol/L 135-145 POTASSIUM 4.5 mmol/L 3.5-5.0 CHLORIDE 102 mmol/L 100-110 CO2 29 meq/L 20-30 CREATININE, Serum 0.81 mg/dL 0.50-1.40 eGFR(CKD-EPI 2020) >90 mL/min >60 Jun 22, 2023 10:28 AM [facility] HEMOGLOBIN A1C PANEL Specimen Type: BLOOD [...] Jun 22, 2023 09:13 AM Reporting Lab: [address] [address] Performing Lab: [address] [address] HEMOGLOBIN A1C 5.7 H 4.0-5.6 Jun 22, 2023 10:28 AM [facility] PSA Specimen Type: SERUM No comment entered. Ordering Provider: ARIEL JIMENEZ Report Released Date/Time: Jun 22, 2023 09:13 AM Reporting Lab: [facility] [address] [facility] [address] Performing Lab: [facility] [address] [facility] [address] PSA 1.78 ng/mL 0.00-4.00 Social History: Smoking Status (Most current) and Tobacco Use (All prior to encounter date) This section includes the most current, and the historical, smoking and tobacco- related health factors from the [place] facility where the Encounter took place. Current Smoking Status This section includes the most current smoking, or tobacco-related health factor, from the [place] facility where the Encounter took place. Date/Time Current Smoking Status Comment Rosendo ity Jan 13, 2022 02:00 PM VA-TOBACCO NEVER USED [facility] Tobacco Use History This section includes a history of the smoking, or tobacco-related health factors, that were collected on or before the date of the Encounter. The data comes from the [place] facility where the Encounter took place. Date/Time Smoking Status/Tobacco Use Comment F acility Jul 06, 2009 03:46 PM QUIT TOBACCO USE > 7 YEARS AGO [facility] Advance Directives: All historical and current Section Date Range: From patient's date of to the date document was created. This section includes ALL of a patient's completed or amended [place] Advance and Rescinded Directives. The entries below indicate that a directive exists for the patient, but an actual copy is not included with this document. The data comes from all [place] facilities. Date Advance Directives Provider Source Jun 29, 2023 ADVANCE DIRECTIVE JAMES GALLO [facility] Sep 19, 2017 ADVANCE DIRECTIVE DINA MCGINNIS [facility] Encounter Notes: All associated encounter notes This section contains the clinical notes associated to the Encounter. Date/Time Encounter Note(s) Provider Source Jun 20, 2023 11:00 AM ADDENDUM: LOCAL TITLE: Addendum STANDARD TITLE: ADDENDUM DATE OF NOTE: JUN 20, 2023@11:00:54 ENTRY DATE: JUN 20, 2023@11:00:55 AUTHOR: NAIF LAWSON EXP COSIGNER: URGENCY: STATUS: COMPLETED Medications were renewed and awaiting to be filled and mailed to the . Will forward this message to the PACT [facility] to please schedule an appointment with the provider to discuss his concerns. /janine/ NAIF LAWSON RN REGISTERED NURSE Signed: 06/20/2023 11:02 Receipt Acknowledged By: 06/20/2023 11:17 /janine/ CHELA MONTEMAYOR === --- Original Document --- 06/20/23 PRIMARY CARE SECURE MESSAGING: ------Original Message ------ Sent: 06/20/2023 07:08 AM ET From: LAKESHA SQUIRES To: RACQUEL DIAMOND 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 1. I'm wondering if I can set up a check up appointment. I've been experiencing chest congestion and a runny nose, mostly in the morning, for several weeks now. I've done several Covid tests and all three were negative. Further, I've been maintaining my weight at 203-205 for almost 4 months now and consistently test well within the 90-130 range, usually about 100-110. I've reduced my daily insulin to 10 units, at night, with no changes in my daily readings. 2. I requested that my atorvastatin and empagliflozin be renewed, allowing me to access it in [facility]. I'm good for two weeks, but as we've discussed, I do my daily med set up, one month at a time. Thank you and I'm looking forward to your reply. , Sincerely, Vijay Squires /jeff MONTEMAYOR Signed: 06/20/2023 07:52 Receipt Acknowledged By: 06/20/2023 11:00 /jeff LAWSON RN REGISTERED NURSE * AWAITING SIGNATURE * ADRIAN DOLAN 06/20/2023 ADDENDUM STATUS: UNSIGNED You may not VIEW this UNSIGNED Addendum. NAIF LAWSON [facility] [place] [facility] Jun 20, 2023 07:52 AM PRIMARY CARE SECUR E MESSAGING: LOCAL TITLE: PRIMARY CARE SECURE MESSAGING STANDARD TITLE: PRIMARY CARE SECURE MESSAGING DATE OF NOTE: JUN 20, 2023@07:52 ENTRY DATE: JUN 20, 2023@07:52:17 AUTHOR: CHELA JIMÉNEZ COSIGNER: URGENCY: STATUS: COMPLETED PRIMARY CARE SECURE MESSAGING Has ADDENDA ------Original Message ------ Sent: 06/20/2023 07:08 AM ET From: LAKESHA SQUIRES To: RACQUEL DIAMOND 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 1. I'm wondering if I can set up a check up appointment. I've been experiencing chest congestion and a runny nose, mostly in the morning, for several weeks now. I've done several Covid tests and all three were negative. Further, I've been maintaining my weight at 203-205 for almost 4 months now and consistently test well within the 90-130 range, usually about 100-110. I've reduced my daily insulin to 10 units, at night, with no changes in my daily readings. 2. I requested that my atorvastatin and empagliflozin be renewed, allowing me to access it in [facility]. I'm good for two weeks, but as we've discussed, I do my daily med set up, one month at a time. Thank you and I'm looking forward to your reply. , Sincerely, Vijay Squires /jeff JIMÉNEZ AMSA Signed: 06/20/2023 07:52 Receipt Acknowledged By: 06/20/2023 11:00 /jeff LAWSON RN REGISTERED NURSE 06/21/2023 11:58 /es/ ADRIAN DOLAN LPN LPN 06/20/2023 ADDENDUM STATUS: COMPLETED Medications were renewed and awaiting to be filled and mailed to the . Will forward this message to the PACT AMSA to please schedule an appointment with the provider to discuss his concerns. /janine/ NAIF LAWSON RN REGISTERED NURSE Signed: 06/20/2023 11:02 Receipt Acknowledged By: 06/20/2023 11:17 /janine/ CHELA MONTEMAYOR 06/20/2023 ADDENDUM STATUS: COMPLETED Membership Solicitor left a message for to come in for [facility] on Monday to be evaluateed. /janine/ CHELA MONTEMAYOR Signed: 06/20/2023 11:18 CHELA JIMÉNEZ [facility]
--- OUTSIDE RECORDS SUMMARY | 2024-06-03 08:58 | XMS_ITS | Encounter Summary ---
Author Name [facility] [place] Address [address] [place] [address] Care Team Providers Care Label Stamper Name Role Phone ARIEL JIMENEZ Primary Care [...] Parra's Name Patient's Relationship to Policy Parra [facility] Dec 19, 2015 [id number] [employer] PATIENT [facility] Dec 19, 2015 [id number] [employer] PATIENT [facility] May 29, 2012 [id number] [employer] PATIENT Selected Encounter This section includes the information on record at [place] for the Encounter. Date/Time Encounter Type Encounter Description Reason Pro vider Source Jun 19, 2023 11:59 AM Outpatient Encounter PRIMARY CARE/MEDICINE IHE Encounter Template Text not used by [facility] Plan of Treatment: Future Appointments (+ 6 months) and Future Tests (+/- 45 days) The Plan of Treatment section includes future care activities for the patient from all [place] [facility] This section includes future appointments and future orders which are active, pending or scheduled. Future Appointments This section includes appointments that were scheduled to occur 6 months from the date of the Encounter, up to a maximum of 20 appointments. The data comes from all [place] treatment facilities. Appointment Date/Time Appointment Type Appointme nt Facility Name Jun 28, 2023 08:30 AM AMBULATORY - PSYCHIATRY [facility] Jun 29, 2023 01:00 PM AMBULATORY - MEDICINE [place] [facility] [place] [facility] Jul 03, 2023 07:00 AM AMBULATORY - [facility]ICIN [place] [facility] [place] [facility] Jul 11, 2023 01:30 PM AMBULATORY - MEDICINE [facility] Jul 25, 2023 01:00 PM AMBULATORY - REHAB MEDICIN [facility] [place] [facility] Aug 09, 2023 08:30 AM AMBULATORY - PSYCHIATRY [facility] Aug 18, 2023 09:00 AM AMBULATORY - REHAB MEDICIN [facility] [place] [facility] Aug 24, 2023 09:00 AM AMBULATORY - REHAB MEDICIN [facility] [place] [facility] Aug 28, 2023 08:45 AM AMBULATORY - MEDICINE [place] [facility] [place] [facility] Aug 29, 2023 10:43 AM AMBULATORY - MEDICINE [facility] Sep 22, 2023 07:30 AM AMBULATORY - REHAB MEDICIN [facility] [place] [facility] September 27, 2023 10:00 AM AMBULATORY - MEDICINE [place] [facility] [place] [facility] October 18, 2023 03:30 PM AMBULATORY - REHAB MEDICIN [facility] [place] [facility] October 26, 2023 02:00 PM AMBULATORY - MEDICINE [facility] Nov 09, 2023 08:30 AM AMBULATORY - PSYCHIATRY [facility] Lab Results: +/- 30 days of the encounter This section includes the Chemistry and Hematology Lab Results on record with [place] for the patient. Radiology Reports and Pathology Reports are provided separately, in subsequent sections. Lab Results This section contains the Chemistry/Hematology Results that were resulted 30 days before or 30 daysafter the date of the Encounter. Date/Time Source Result Type Result - Unit Interpretation Reference Range Comment Jun 22, 2023 10:28 AM [facility] LIVER FUNCTION Specimen Type: SERUM No comment entered. Ordering Provider: ARIEL JIMENEZ Report Released Date/Time: Jun 22, 2023 09:13 AM Reporting Lab: [address] [address] Performing Lab: [address] [address] PROTEIN,TOTAL 7.2 g/dL 6.0-8.3 ALBUMIN 4.6 g/dL 3.5-5.0 ALKALINE PHOSPHATASE 40 U/L 40-150 AST 26 U/L 5-34 ALT 37 U/L BILIRUBIN, TOTAL 0.8 mg/dL 0.2-1.2 Jun 22, 2023 10:28 AM [facility] CBC Specimen Type: BLOOD No comment entered. Ordering Provider: ARIEL JIMENEZ Report Released Date/Time: Jun 22, 2023 09:13 AM Reporting Lab: [address] [address] Performing Lab: [address] [address] WBC 6.16 10*3/uL 4.50-11.00 RBC 5.11 10*6/uL 4.23-5.66 HGB 15.9 g/dL 12.8-17 HCT 47.1 39.2-50.4 MCV 92.2 fL 82-99 MCHC 33.8 g/dL 30.8-35.1 PLT 193 10*3/uL 140-360 RDW-CV 12.4 12.0-16.0 MCH 31.1 pg 26.2-32.6 Jun 22, 2023 10:28 AM [facility] LIPID PANEL FASTING Specimen Type: SERUM No comment entered. Ordering Provider: ARIEL JIMENEZ Report Released Date/Time: Jun 22, 2023 09:13 AM Reporting Lab: [address] [address] Performing Lab: [facility] [address] [facility] [address] CHOLESTEROL 144 mg/dL TRIGLYCERIDE 48 mg/dL 0-150 LDL calculated 70 mg/dL 0-129 CHOL/HDL 2.3 HDL CHOLESTEROL 64 mg/dL H 40-60 Jun 22, 2023 10:28 AM [facility] BASIC METABOLIC PANEL (fasting) Specimen Type: SERUM No comment entered. Ordering Provider: ARIEL JIMENEZ Report Released Date/Time: Jun 22, 2023 09:13 AM Reporting Lab: [address] [address] Performing Lab: [address] [address] UREA NITROGEN 23 mg/dL 7-25 GLUCOSE 123 mg/dL H 65-100 SODIUM 139 mmol/L 135-145 POTASSIUM 4.5 mmol/L 3.5-5.0 CHLORIDE 102 mmol/L 100-110 CO2 29 meq/L 20-30 CREATININE, Serum 0.81 mg/dL 0.50-1.40 eGFR(CKD-EPI 2020) >90 mL/min >60 Jun 22, 2023 10:28 AM [facility] HEMOGLOBIN A1C PANEL Specimen Type: BLOOD [...] Jun 22, 2023 09:13 AM Reporting Lab: [address] [address] Performing Lab: [address] [address] HEMOGLOBIN A1C 5.7 H 4.0-5.6 Jun 22, 2023 10:28 AM [facility] PSA Specimen Type: SERUM No comment entered. Ordering Provider: ARIEL JIMENEZ Report Released Date/Time: Jun 22, 2023 09:13 AM Reporting Lab: [facility] [address] [facility] [address] Performing Lab: [facility] [address] [facility] [address] PSA 1.78 ng/mL 0.00-4.00 Social History: Smoking Status (Most current) and Tobacco Use (All prior to encounter date) This section includes the most current, and the historical, smoking and tobacco- related health factors from the [place] facility where the Encounter took place. Current Smoking Status This section includes the most current smoking, or tobacco-related health factor, from the [place] facility where the Encounter took place. Date/Time Current Smoking Status Comment [place] ity Jan 13, 2022 02:00 PM VA-TOBACCO NEVER USED [facility] Tobacco Use History This section includes a history of the smoking, or tobacco-related health factors, that were collected on or before the date of the Encounter. The data comes from the [place] facility where the Encounter took place. Date/Time Smoking Status/Tobacco Use Comment F acility Jul 06, 2009 03:46 PM QUIT TOBACCO USE > 7 YEARS AGO [facility] Advance Directives: All historical and current Section Date Range: From patient's date of to the date document was created. This section includes ALL of a patient's completed or amended [place] Advance and Rescinded Directives. The entries below indicate that a directive exists for the patient, but an actual copy is not included with this document. The data comes from all [place] facilities. Date Advance Directives Provider Source Jun 29, 2023 ADVANCE DIRECTIVE JAMES GALLO [facility] Sep 19, 2017 ADVANCE DIRECTIVE DINA MCGINNIS [facility] Encounter Notes: All associated encounter notes This section contains the clinical notes associated to the Encounter. Date/Time Encounter Note(s) Provider Source Jun 19, 2023 11:59 AM MEDICATION MGT NOT E: LOCAL TITLE: OUTPATIENT MEDICATION REQUEST STANDARD TITLE: MEDICATION MGT NOTE DATE OF NOTE: JUN 19, 2023@11:59 ENTRY DATE: JUN 19, 2023@11:59:44 AUTHOR: NAIF LAWSON EXP COSIGNER: URGENCY: STATUS: COMPLETED Medication Request Date of Request: May Please renew and mail. EMPAGLIFLOZIN TAB,ORAL 10MG TAKE ONE TABLET BY MOUTH ONCE DAILY FOR DIABETES Quantity: 90 Refills: 1 ATORVASTATIN TAB 80MG TAKE ONE-HALF TABLET BY MOUTH EVERY EVENING AFTER SUPPER FOR CHOLESTEROL Quantity: 45 Refills: 3 /es/ NAIF LAWSON RN REGISTERED NURSE Signed: 06/19/2023 12:00 Receipt Acknowledged By: 06/20/2023 08:37 /es/ MINNA DIAMOND MD PHYSICIAN [facility] [place]
--- OUTSIDE RECORDS SUMMARY | 2024-06-03 08:58 | XMS_ITS | Encounter Summary ---
Author Name [facility] [place] Address [address] [place] [address] Care Team Providers Care Freight Elevator Erector Name Role Phone ARIEL JIMENEZ Primary Care [...] Parra's Name Patient's Relationship to Policy Parra [facility] Dec 19, 2015 [id number] [employer] PATIENT [facility] Dec 19, 2015 [id number] [employer] PATIENT [facility] May 29, 2012 [id number] [employer] PATIENT Selected Encounter This section includes the information on record at [place] for the Encounter. Date/Time Encounter Type Encounter Description Reason Pro vider Source Jun 21, 2023 12:20 PM Outpatient Encounter OPTOMETRY E Encounter Template Text not used by VA Plan of Treatment: Future Appointments (+ 6 months) and Future Tests (+/- 45 days) The Plan of Treatment section includes future care activities for the [facility] [place] [facility] This section includes future appointments and future orders which are active, pending or scheduled. Future Appointments This section includes appointments that were scheduled to occur 6 months from the date of the Encounter, up to a maximum of 20 appointments. The data comes from all [place] treatment facilities. Appointment Date/Time Appointment Type Appointme nt Facility Name Jun 28, 2023 08:30 AM AMBULATORY - PSYCHIATRY [facility] Jun 29, 2023 01:00 PM AMBULATORY - MEDICINE [place] [facility] [place] [facility] Jul 03, 2023 07:00 AM AMBULATORY - REHAB MEDICIN [facility] [place] [facility] Jul 11, 2023 01:30 PM AMBULATORY - MEDICINE [facility] [place] Jul 25, 2023 01:00 PM AMBULATORY - REHAB MEDICIN E [facility] [place] [facility] Aug 09, 2023 08:30 AM AMBULATORY - PSYCHIATRY [facility] Aug 18, 2023 09:00 AM AMBULATORY - REHAB MEDICIN [facility] [place] [facility] Aug 24, 2023 09:00 AM AMBULATORY - REHAB MEDICIN E [facility] [place] [facility] Aug 28, 2023 08:45 AM AMBULATORY - MEDICINE [place] [facility] [place] [facility] Aug 29, 2023 10:43 AM [facility] Sep 22, 2023 07:30 AM AMBULATORY - REHAB MEDICIN E [facility] [place] [facility] September 27, 2023 10:00 AM AMBULATORY - MEDICINE [place] [facility] [place] [facility] October 18, 2023 03:30 PM AMBULATORY - REHAB MEDICIN E [facility] [place] [facility] October 26, 2023 02:00 PM AMBULATORY - MEDICINE [facility] [place] Nov 09, 2023 08:30 AM AMBULATORY - PSYCHIATRY [facility] Lab Results: +/- 30 days of the encounter This section includes the Chemistry and Hematology Lab Results on record with [place] for the patient. Radiology Reports and Pathology Reports are provided separately, in subsequent sections. Lab Results This section contains the Chemistry/Hematology Results that were resulted 30 days before or 30 daysafter the date of the Encounter. Date/Time Source Result Type Result - Unit Interpretation Reference Range Comment Jun 22, 2023 10:28 AM [facility] LIVER FUNCTION Specimen Type: SERUM No comment entered. Ordering Provider: ARIEL JIMENEZ Report Released Date/Time: Jun 22, 2023 09:13 AM Reporting Lab: [address] [address] Performing Lab: [address] [address] PROTEIN,TOTAL 7.2 g/dL 6.0-8.3 ALBUMIN 4.6 g/dL 3.5-5.0 ALKALINE PHOSPHATASE 40 U/L 40-150 AST 26 U/L 5-34 ALT 37 U/L BILIRUBIN, TOTAL 0.8 mg/dL 0.2-1.2 Jun 22, 2023 10:28 AM [facility] CBC Specimen Type: BLOOD No comment entered. Ordering Provider: ARIEL JIMENEZ Report Released Date/Time: Jun 22, 2023 09:13 AM Reporting Lab: [facility] [address] [facility] [address] Performing Lab: [address] [address] WBC 6.16 10*3/uL 4.50-11.00 RBC 5.11 10*6/uL 4.23-5.66 HGB 15.9 g/dL 12.8-17 HCT 47.1 39.2-50.4 MCV 92.2 fL 82-99 MCHC 33.8 g/dL 30.8-35.1 PLT 193 10*3/uL 140-360 RDW-CV 12.4 12.0-16.0 MCH 31.1 pg 26.2-32.6 Jun 22, 2023 10:28 AM [facility] HEMOGLOBIN A1C PANEL Specimen Type: [...] Jun 22, 2023 09:13 AM Reporting Lab: [facility] [address] [facility] [address] Performing Lab: [facility] [address] [facility] [address] HEMOGLOBIN A1C 5.7 H 4.0-5.6 Jun 22, 2023 10:28 AM [facility] BASIC METABOLIC PANEL (fasting) Specimen Type: SERUM No comment entered. Ordering Provider: ARIEL JIMENEZ Report Released Date/Time: Jun 22, 2023 09:13 AM Reporting Lab: [facility] [address] [facility] [address] Performing Lab: [address] [address] UREA NITROGEN 23 mg/dL 7-25 GLUCOSE 123 mg/dL H 65-100 SODIUM 139 mmol/L 135-145 POTASSIUM 4.5 mmol/L 3.5-5.0 CHLORIDE 102 mmol/L 100-110 CO2 29 meq/L 20-30 CREATININE, Serum 0.81 mg/dL 0.50-1.40 eGFR(CKD-EPI 2020) >90 mL/min >60 Jun 22, 2023 10:28 AM [facility] LIPID PANEL FASTING Specimen Type: SERUM No comment entered. Ordering Provider: ARIEL JIMENEZ Report Released Date/Time: Jun 22, 2023 09:13 AM Reporting Lab: [facility] [address] [facility] [address] Performing Lab: [address] [address] CHOLESTEROL 144 mg/dL TRIGLYCERIDE 48 mg/dL 0-150 LDL calculated 70 mg/dL 0-129 CHOL/HDL 2.3 HDL CHOLESTEROL 64 mg/dL H 40-60 Jun 22, 2023 10:28 AM [facility] PSA Specimen Type: SERUM No comment entered. Ordering Provider: ARIEL JIMENEZ Report Released Date/Time: Jun 22, 2023 09:13 AM Reporting Lab: [facility] [address] [facility] [address] Performing Lab: [facility] [address] [facility] [address] PSA 1.78 ng/mL 0.00-4.00 Social History: Smoking Status (Most current) and Tobacco Use (All prior to encounter date) This section includes the most current, and the historical, smoking and tobacco- related health factors from the [place] facility where the Encounter took place. Current Smoking Status This section includes the most current smoking, or tobacco-related health factor, from the [place] facility where the Encounter took place. Date/Time Current Smoking Status Comment Facil ity Jan 13, 2022 02:00 PM VA-TOBACCO NEVER USED [facility] Tobacco Use History This section includes a history of the smoking, or tobacco-related health factors, that were collected on or before the date of the Encounter. The data comes from the [place] facility where the Encounter took place. Date/Time Smoking Status/Tobacco Use Comment F acility Jul 06, 2009 03:46 PM QUIT TOBACCO USE > 7 YEARS AGO [facility] Advance Directives: All historical and current Section Date Range: From patient's date of to the date document was created. This section includes ALL of a patient's completed or amended [place] Advance and Rescinded Directives. The entries below indicate that a directive exists for the patient, but an actual copy is not included with this document. The data comes from all [place] facilities. Date Advance Directives Provider Source Jun 29, 2023 ADVANCE DIRECTIVE JAMES GALLO [facility] Sep 19, 2017 ADVANCE DIRECTIVE DINA MCGINNIS [facility] Encounter Notes: All associated encounter notes This section contains the clinical notes associated to the Encounter. Date/Time Encounter Note(s) Provider Source Jun 21, 2023 12:20 PM OPTOMETRY NOTE: LOCAL TITLE: OPTOMETRY NOTE STANDARD TITLE: OPTOMETRY NOTE DATE OF NOTE: JUN 21, 2023@12:20 ENTRY DATE: JUN 21, 2023@12:20:24 AUTHOR: LONNIE ALICEA [facility] EXP COSIGNER: URGENCY: STATUS: COMPLETED OPT HT ordered replacement pair of eyeglasses as requested by patient d/t to lost lens. /janine/ Lonnie Alice[facility] Senior Applications Engineer Signed: 06/21/2023 12:21 LONNIE ALICEA [place] [facility]
--- OUTSIDE RECORDS SUMMARY | 2024-06-03 08:58 | XMS_ITS | Encounter Summary ---
Author Name [facility] [place] [facility] [place] Address [address] [place] [address] Care Team Providers Care Sports Development Officer Name Role Phone ARIEL JIMENEZ Primary [...] Parra's Name Patient's Relationship to Policy Parra [facility] Dec 19, 2015 [id number] [employer] PATIENT [facility] Dec 19, 2015 [id number] [phone] [employer] PATIENT [facility] May 29, 2012 [id number] [employer] PATIENT Selected Encounter This section includes the information on record at [place] for the Encounter. Date/Time Encounter Type Encounter Description Reason Pro vider Source Jun 21, 2023 11:20 AM Outpatient Encounter OPTOMETRY E Encounter Template Text not used by VA Plan of Treatment: Future Appointments (+ 6 months) and Future Tests (+/- 45 days) The Plan of Treatment section includes future care activities for the patient from all [place] [facility]. This section includes future appointments and future orders which are active, pending or scheduled. Future Appointments This section includes appointments that were scheduled to occur 6 months from the date of the Encounter, up to a maximum of 20 appointments. The data comes from all [place] treatment facilities. Appointment Date/Time Appointment Type Appointme nt Facility Name Jun 28, 2023 08:30 AM AMBULATORY - PSYCHIATRY [facility] Jun 29, 2023 01:00 PM AMBULATORY - MEDICINE [place] [facility] [place] Jul 03, 2023 07:00 AM AMBULATORY - [facility] MEDICIN [facility] [place] Jul 11, 2023 01:30 PM AMBULATORY - MEDICINE [facility] Jul 25, 2023 01:00 PM AMBULATORY - REHAB MEDICIN E [facility] [place] Aug 09, 2023 08:30 AM AMBULATORY - PSYCHIATRY [facility] Aug 18, 2023 09:00 AM AMBULATORY - REHAB MEDICIN E [facility] [place] Aug 24, 2023 09:00 AM AMBULATORY - REHAB MEDICIN E [facility] [place] Aug 28, 2023 08:45 AM AMBULATORY - MEDICINE [place] [facility] [place] Aug 29, 2023 10:43 AM [facility] Sep 22, 2023 07:30 AM AMBULATORY - REHAB MEDICIN E [facility] [place] September 27, 2023 10:00 AM AMBULATORY - MEDICINE [place] [facility] [place] October 18, 2023 03:30 PM AMBULATORY - REHAB MEDICIN E [facility] [place] October 26, 2023 02:00 PM AMBULATORY - MEDICINE [facility] Nov 09, 2023 08:30 AM AMBULATORY - PSYCHIATRY [facility] Lab Results: +/- 30 days of the encounter This section includes the Chemistry and Hematology Lab Results on record with [place] for the patient. Radiology Reports and Pathology Reports are provided separately, in subsequent sections. Lab Results This section contains the Chemistry/Hematology Results that were resulted 30 days before or 30 daysafter the date of the Encounter. Date/Time Source Result Type Result - Unit Interpretation Reference Range Comment Jun 22, 2023 10:28 AM [facility] LIVER FUNCTION Specimen Type: SERUM No comment entered. Ordering Provider: ARIEL JIMENEZ Report Released Date/Time: Jun 22, 2023 09:13 AM Reporting Lab: [address] [address] Performing Lab: [address] [address] PROTEIN,TOTAL 7.2 g/dL 6.0-8.3 ALBUMIN 4.6 g/dL 3.5-5.0 ALKALINE PHOSPHATASE 40 U/L 40-150 AST 26 U/L 5-34 ALT 37 U/L BILIRUBIN, TOTAL 0.8 mg/dL 0.2-1.2 Jun 22, 2023 10:28 AM [facility] CBC Specimen Type: BLOOD No comment entered. Ordering Provider: ARIEL JIMENEZ Report Released Date/Time: Jun 22, 2023 09:13 AM Reporting Lab: [address] [address] Performing Lab: [address] [address] WBC 6.16 10*3/uL 4.50-11.00 RBC 5.11 10*6/uL 4.23-5.66 HGB 15.9 g/dL 12.8-17 HCT 47.1 39.2-50.4 MCV 92.2 fL 82-99 MCHC 33.8 g/dL 30.8-35.1 PLT 193 10*3/uL 140-360 RDW-CV 12.4 12.0-16.0 MCH 31.1 pg 26.2-32.6 Jun 22, 2023 10:28 AM [facility] LIPID PANEL FASTING Specimen Type: SERUM No comment entered. Ordering Provider: ARIEL JIMENEZ Report Released Date/Time: Jun 22, 2023 09:13 AM Reporting Lab: [address] [address] Performing Lab: [facility] [address] [facility] [address] CHOLESTEROL 144 mg/dL TRIGLYCERIDE 48 mg/dL 0-150 LDL calculated 70 mg/dL 0-129 CHOL/HDL 2.3 HDL CHOLESTEROL 64 mg/dL H 40-60 Jun 22, 2023 10:28 AM [facility] BASIC METABOLIC PANEL (fasting) Specimen Type: SERUM No comment entered. Ordering Provider: ARIEL JIMENEZ Report Released Date/Time: Jun 22, 2023 09:13 AM Reporting Lab: [facility] [address] [facility] [address] Performing Lab: [address] [address] UREA NITROGEN 23 mg/dL 7-25 GLUCOSE 123 mg/dL H 65-100 SODIUM 139 mmol/L 135-145 POTASSIUM 4.5 mmol/L 3.5-5.0 CHLORIDE 102 mmol/L 100-110 CO2 29 meq/L 20-30 CREATININE, Serum 0.81 mg/dL 0.50-1.40 eGFR(CKD-EPI 2020) >90 mL/min >60 Jun 22, 2023 10:28 AM [facility] HEMOGLOBIN A1C PANEL Specimen Type: BLOOD [...] Jun 22, 2023 09:13 AM Reporting Lab: [facility] [address] [facility] [address] Performing Lab: [address] [address] HEMOGLOBIN A1C 5.7 H 4.0-5.6 Jun 22, 2023 10:28 AM [facility] PSA Specimen Type: SERUM No comment entered. Ordering Provider: ARIEL JIMENEZ Report Released Date/Time: Jun 22, 2023 09:13 AM Reporting Lab: [facility] [address] [facility] [address] Performing Lab: [facility] [address] [facility] [address] PSA 1.78 ng/mL 0.00-4.00 Social History: Smoking Status (Most current) and Tobacco Use (All prior to encounter date) This section includes the most current, and the historical, smoking and tobacco- related health factors from the [place] facility where the Encounter took place. Current Smoking Status This section includes the most current smoking, or tobacco-related health factor, from the [place] facility where the Encounter took place. Date/Time Current Smoking Status Comment Facil ity Jan 13, 2022 02:00 PM VA-TOBACCO NEVER USED [facility] Tobacco Use History This section includes a history of the smoking, or tobacco-related health factors, that were collected on or before the date of the Encounter. The data comes from the [place] facility where the Encounter took place. Date/Time Smoking Status/Tobacco Use Comment F acility Jul 06, 2009 03:46 PM QUIT TOBACCO USE > 7 YEARS AGO [facility] Advance Directives: All historical and current Section Date Range: From patient's date of to the date document was created. This section includes ALL of a patient's completed or amended [place] Advance and Rescinded Directives. The entries below indicate that a directive exists for the patient, but an actual copy is not included with this document. The data comes from all [place] facilities. Date Advance Directives Provider Source Jun 29, 2023 ADVANCE DIRECTIVE JAMES GALLO [facility] Sep 19, 2017 ADVANCE DIRECTIVE DINA MCGINNIS [facility] Encounter Notes: All associated encounter notes This section contains the clinical notes associated to the Encounter. Date/Time Encounter Note(s) Provider Source Jun 21, 2023 11:20 AM TELEPHONE ENCOUNTE R NOTE: LOCAL TITLE: TELEPHONE NOTE/SPECIALTY CLINIC STANDARD TITLE: TELEPHONE ENCOUNTER NOTE DATE OF NOTE: JUN 21, 2023@11:20 ENTRY DATE: JUN 21, 2023@11:20:07 AUTHOR: GORGE BURGOS EXP COSIGNER: URGENCY: STATUS: COMPLETED [place] is asking for replacment pair on his sunglasses, lens fell out and broke. /janine/ GORGE BURGOS [employer]VANCED [employer]ER Signed: 06/21/2023 11:20 Receipt Acknowledged By: 06/21/2023 15:29 /janine/ [facility] 06/21/2023 12:21 /janine/ Germaine [facility] Pedicurist GOR[facility]OS [facility]
--- OUTSIDE RECORDS SUMMARY | 2024-06-03 08:58 | XMS_ITS | Encounter Summary ---
Author Name [facility] [place] [facility] [place] Organization [facility] [place] Address [address] [place] [address] Care Team Providers Care Plant Controller Name Role Phone ARIEL JIMENEZ Primary Care [...] Parra's Name Patient's Relationship to Policy Parra [facility] Dec 19, 2015 [id number] [employer] PATIENT [facility] Dec 19, 2015 [id number] [employer] PATIENT [facility] May 29, 2012 [id number] [employer] PATIENT Selected Encounter This section includes the information on record at [place] for the Encounter. Date/Time Encounter Type Encounter Description Reason Pro vider Source Jun 22, 2023 09:00 AM Outpatient Encounter PRIMARY CARE/MEDICINE I[facility] Encounter Template Text not used by VA Plan of Treatment: Future Appointments (+ 6 months) and Future Tests (+/- 45 days) The Plan of Treatment section includes future care activities for the patient from all [place] [facility] This section includes future appointments and future [...] 29, 2023 01:00 PM AMBULATORY - MEDICINE [place] [facility] [place] [facility] Jul 03, 2023 07:00 AM AMBULATORY - REHAB MEDICIN E [facility] [place] [facility] Jul 11, 2023 01:30 PM AMBULATORY - MEDICINE [facility] Jul 25, 2023 01:00 PM AMBULATORY - [...] 28, 2023 08:45 AM AMBULATORY - MEDICINE [place] [facility] [place] [facility] Aug 29, 2023 10:43 AM AMBULATORY - MEDICINE [facility] Sep 22, 2023 07:30 AM AMBULATORY - REHAB MEDICIN E [facility] [place] [facility] September 27, 2023 10:00 AM AMBULATORY - MEDICINE [place] [facility] [place] [facility] October 18, 2023 03:30 PM AMBULATORY - REHAB MEDICIN E [facility] [place] [facility] October 26, 2023 02:00 PM AMBULATORY - MEDICINE [facility] Nov 09, 2023 08:30 AM AMBULATORY - PSYCHIATRY [facility] Lab Results: +/- 30 days of the encounter This section includes the Chemistry and Hematology Lab Results on record with [place] for the patient. Radiology Reports and Pathology Reports are provided separately, in subsequent sections. Lab Results This section contains the Chemistry/Hematology Results that were resulted 30 days before or 30 daysafter the date of the Encounter. Date/Time Source Result Type Result - Unit Interpretation Reference Range Comment Jun 22, 2023 10:28 AM [facility] LIVER FUNCTION Specimen Type: SERUM No comment entered. Ordering Provider: ARIEL JIMENEZ Report Released Date/Time: Jun 22, 2023 09:13 AM Reporting Lab: [address] [address] Performing Lab: [address] [address] PROTEIN,TOTAL 7.2 g/dL 6.0-8.3 ALBUMIN 4.6 g/dL 3.5-5.0 ALKALINE PHOSPHATASE 40 U/L 40-150 AST 26 U/L 5-34 ALT 37 U/L BILIRUBIN, TOTAL 0.8 mg/dL 0.2-1.2 Jun 22, 2023 10:28 AM [facility] CBC Specimen Type: BLOOD No comment entered. Ordering Provider: ARIEL JIMENEZ Report Released Date/Time: Jun 22, 2023 09:13 AM Reporting Lab: [address] [address] Performing Lab: [address] [address] WBC 6.16 10*3/uL 4.50-11.00 RBC 5.11 10*6/uL 4.23-5.66 HGB 15.9 g/dL 12.8-17 HCT 47.1 39.2-50.4 MCV 92.2 fL 82-99 MCHC 33.8 g/dL 30.8-35.1 PLT 193 10*3/uL 140-360 RDW-CV 12.4 12.0-16.0 MCH 31.1 pg 26.2-32.6 Jun 22, 2023 10:28 AM [facility] PSA Specimen Type: SERUM No comment entered. Ordering Provider: ARIEL JIMENEZ Report Released Date/Time: Jun 22, 2023 09:13 AM Reporting Lab: [address] [address] Performing Lab: [facility] [address] [facility] [address] PSA 1.78 ng/mL 0.00-4.00 Jun 22, 2023 10:28 AM [facility] LIPID PANEL FASTING Specimen Type: SERUM No comment entered. Ordering Provider: ARIEL JIMENEZ Report Released Date/Time: Jun 22, 2023 09:13 AM Reporting Lab: [facility] [address] [facility] [address] Performing Lab: [facility] [address] [facility] [address] CHOLESTEROL 144 mg/dL TRIGLYCERIDE 48 mg/dL 0-150 LDL calculated 70 mg/dL 0-129 CHOL/HDL 2.3 HDL CHOLESTEROL 64 mg/dL H 40-60 Jun 22, 2023 10:28 AM [facility] BASIC METABOLIC PANEL (fasting) Specimen Type: SERUM No comment entered. Ordering Provider: ARIEL JIMENEZ Report Released Date/Time: Jun 22, 2023 09:13 AM Reporting Lab: [facility] [address] [facility] [address] Performing Lab: [address] [address] UREA NITROGEN 23 mg/dL 7-25 GLUCOSE 123 mg/dL H 65-100 SODIUM 139 mmol/L 135-145 POTASSIUM 4.5 mmol/L 3.5-5.0 CHLORIDE 102 mmol/L 100-110 CO2 29 meq/L 20-30 CREATININE, Serum 0.81 mg/dL 0.50-1.40 eGFR(CKD-EPI 2020) >90 mL/min >60 Jun 22, 2023 10:28 AM [facility] HEMOGLOBIN A1C PANEL Specimen Type: [...] Jun 22, 2023 09:13 AM Reporting Lab: [place] [facility] [place] [facility] [address] [facility] [address] Performing Lab: [place] [facility] [place] [facility] [address] [facility] [address] HEMOGLOBIN A1C 5.7 H 4.0-5.6 Social History: Smoking Status (Most current) and Tobacco Use (All prior to encounter date) This section includes the most current, and the historical, smoking and tobacco- related health factors from the [place] facility where the Encounter took place. Current Smoking Status This section includes the most current smoking, or tobacco-related health factor, from the [place] facility where the Encounter took place. Date/Time Current Smoking Status Comment [place] it[facility] Jun 22, 2023 09:00 AM VA-TOBACCO USE [address] [facility] Tobacco Use History This section includes a history of the smoking, or tobacco-related health factors, that were collected on or before the date of the Encounter. The data comes from the [place] facility where the Encounter took place. Date/Time Smoking Status/Tobacco Use Comment F acility Jun 22, 2023 09:00 AM VA-TOBACCO USE 30 YEARS OR MORE [place] [facility] [place] [facility] Jun 22, 2023 09:00 AM VA-TOBACCO USE ADVICE [place] [facility] [place] [facility] Jun 22, 2023 09:00 AM VA-TOBACCO USE EXHIBIT DISPLAY REPRESENTATIVE NO [place] [facility] [place] [facility] Jun 22, 2023 09:00 AM VA-TOBACCO USE MED NO [place] [facility] [place] [facility] Jun 22, 2023 09:00 AM VA-TOBACCO USER SOME DAYS [facility] [place] [facility] Jan 13, 2022 02:00 PM VA-TOBACCO NEVER USED [place] [facility] [place] [facility] Jul 06, 2009 03:46 PM QUIT TOBACCO USE > 7 YEARS AGO [place] [facility] [place] [facility] Advance Directives: All historical and current Section Date Range: From patient's date of to the date document was created. This section includes ALL of a patient's completed or amended [place] Advance and Rescinded Directives. The entries below indicate that a directive exists for the patient, but an actual copy is not included with this document. The data comes from all [place] facilities. Date Advance Directives Provider Source Jun 29, 2023 ADVANCE DIRECTIVE JAMES GALLO [facility] Sep 19, 2017 ADVANCE DIRECTIVE DINA MCGINNIS [facility] Encounter Notes: All associated encounter notes This section contains the clinical notes associated to the Encounter. Date/Time Encounter Note(s) Provider Source Jun 22, 2023 09:08 AM PREVENTIVE MEDICIN E NURSING NOTE: LOCAL TITLE: CLINICAL REMINDERS/NURSING STANDARD TITLE: PREVENTIVE MEDICINE NURSING NOTE DATE OF NOTE: JUN 22, 2023@09:08 ENTRY DATE: JUN 22, 2023@09:08:23 AUTHOR: ROULA GUALLPA COSIGNER: URGENCY: STATUS: COMPLETED F: Telephone call D: Charlie was called and was asked to go to [facility] for fasting labs. He says that he will get them done today Homelessness/Food Insecurity Screen: In the past 2 months, have you been living in stable housing that you own, rent, or stay in as part of a household? Yes - Living in stable housing. Are you worried or concerned that in the next 2 months you may NOT have stable housing that you own, rent, or stay in as part of a household? No - Not worried about housing near future The [place] reports the following: Within the past 12 months, you worried whether your food would run out before you got money to buy more. Never true Within the past 12 months, the food you bought just didn't last and you didn't have money to get more. Never true Tobacco Use Screening: The patient uses tobacco but not every day. The patient does not use tobacco within 30 minutes of waking up. The patient has been smoking or using tobacco for thirty years or more. Patient was advised to quit smoking and/or using tobacco. Discussion with patient included: - Quitting smoking or tobacco use is one of the most important things you can do to protect and improve your health and [place] has the resources to support you. - Set a quit date when you are ready to quit. - Get support from your family and friends. - Review any past quit attempts- What helped? What didn't? - On the day you plan to quit, get rid of all cigarettes and tobacco products from your home, car or work. - Using a combination of behavioral counseling or other support strategies and FDA-approved cessation medications is the most effective way to ensure success in quitting. Patient was offered Behavioral Counseling and other support strategies to assist with quitting. Discussion with patient included: - Behavioral counseling or other support strategies greatly increases your chances of successfully quitting smoking or tobacco use by helping you develop a quit plan and providing support and other strategies to make behavioral changes to help you quit. - [place] has a number of behavioral counseling options to help you with quitting, including: * Provide information about the facility smoking or tobacco use treatment options or clinics * [place]'s national quitline, 9-260-KXZR-VET, with counseling available Monday-Monday The patient was not interested in receiving additional information about how to use the treatment options discussed. Patient was offered FDA-approved cessation medications. Discussion with patient included: - Medications for Nicotine replacement therapy such as the patch, gum or lozenge, and other medications such as varenicline or bupropion, can play an important role in the initial weeks and months after you quit smoking or tobacco use. - Medications help with cravings and withdrawal symptoms and they greatly increase your chances of successfully quitting. The patient was not interested in a prescription for tobacco cessation medications. Alcohol Use Screen (AUDIT-C): Alcohol Screen: SCREEN FOR ALCOHOL (AUDIT-C) An alcohol screening test (AUDIT-C) was negative (score=2). 1. How often did you have a drink containing alcohol in the past year? Consider a drink to be a 12 ounce can or bottle of regular beer, 8 ounces of malt liquor, a 5 ounce glass of table wine, or a 1.5 ounce shot of liquor (like scotch, gin, or vodka). Two to four times a month 2. How many drinks containing alcohol did you have on a typical day when you were drinking in the past year? One or two drinks 3. How often did you have six or more drinks on one occasion in the past year? Never /es/ ROULA GUALLPA MSN Ed., BSN SWIMMING COACH NURSE Signed: 06/22/2023 09:13 ROULA GUALLPA [facility]
--- OUTSIDE RECORDS SUMMARY | 2024-06-03 08:58 | XMS_ITS | Encounter Summary ---
Author Name [facility] [place] [facility] [place] Address [address] [place] [address] Care Team Providers Care Management Professor Name Role Phone ARIEL JIMENEZ Primary Care [...] Policy Parra's Name Patient's Relationship to Policy Prara [facility] Dec 19, 2015 [id number] [employer] PATIENT [facility] Dec 19, 2015 [id number] [phone] [employer] PATIENT [facility] May 29, 2012 [id number] [employer] PATIENT Selected Encounter This section includes the information on record at [place] for the Encounter. Date/Time Encounter Type Encounter Description Reason Provider Source May 03, 2024 10:00 AM POS [employer] PRESSURE CPAP SLEEP MEDICINE ICD-10-CM G47.33 Obstructive sleep apnea (adult) (pediatric) MODE BROOKS Encounter Template Text not used by [place] Assessments - Encounter Diagnoses This section includes the primary and secondary diagnoses documented for the Encounter. Date/Time Primary/Secondary Diagnosis Diagnosis Name Provider Source May 31, 2024 10:12 AM PRIMARY Obstructive sleep apnea (adult) (pediatric) CAMERON PAREDES [facility] Plan of Treatment: Future Appointments (+ 6 months) and Future Tests (+/- 45 days) The Plan of Treatment section includes future care activities for the patient [facility] [place] [facility] This section includes future appointments and future orders which are active, pending or scheduled. Future Appointments This section includes appointments that were scheduled to occur 6 months from the date of the Encounter, up to a maximum of 20 appointments. The data comes from all [place] treatment facilities. Appointment Date/Time Appointment Type Appointme nt Facility Name May 10, 2024 08:30 AM AMBULATORY - PSYCHIATRY [facility] Jul 11, 2024 10:30 AM AMBULATORY - NONE [facility] Aug 02, 2024 10:00 AM AMBULATORY - MEDICINE [facility] Aug 09, 2024 09:00 AM AMBULATORY - PSYCHIATRY [facility] Active, Pending, and Scheduled Orders This section includes a listing of several types of active, pending, and scheduled orders, including clinic medications orders, diagnostic test orders, procedure orders and consult orders; where the start date of the order is 45 days before the date of the Encounter or 45 days after the date of theEncounter. The data comes from all [place] treatment [facility]. Test Date/Time Test Type Test Details Facility Name Mar 25, 2024 12:57 PM Consult Order [facility] Cons Melon Packer's Choice [facility] Vital Signs: All taken on the encounter date This section contains inpatient and outpatient Vital Signs collected on the date of the Encounter. Date/Time Temperature Pulse Blood Pressure Respiratory Rate SP02 Pain Height Weight Body Mass Index Source May 03, 2024 09:39 AM 96.5 99 113/75 96 3 210.7 26 [facility] Advance Directives: All historical and current [...] Jun 29, 2023 ADVANCE DIRECTIVE JAMES GALLO [facility] Sep 19, 2017 ADVANCE DIRECTIVE RASDIAN BC [facility] Encounter Notes: All associated encounter notes This section contains the clinical notes associated to the Encounter. 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 Had persistent symptoms despite weight loss. Failed oral appliance therapy and was ultimately implanted with HNS Interim: -Current ESS is - Patient reports that he had right knee surgery on Apr 10. He was tolerating 1.6 V for 2 weeks prior to his TKA. He reports pain s/p right TKA surgery 3 weeks ago as barriers to usage of Inspire, he reports that he has been using it for 5-7 hours prior to the surgery and is consistent with his escobar.P er escobar over the last 3 weeks, inspire used 2-4 hours per day. Using it throughout the night. The oxycodone was recently decreased from 10mg to 5mg. Pause is 10 minutes and delay time is 30 minutes. He feels that is adequate, but per rep patient was turning off the device instead of pausing it. Demonstrated how to pause. 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 CV: RRR, S1S2 WNL, no murmur; No JVD Lung: CTAB, no wheezing Psych: normal affect Neuro: grossly non-focal, walking with a cane Recent labs and studies: No data available [...] ESS: 19 (off treatment) Sleep sync data: reviewed see HPI Current settings Amplitude: 1.6 V Prior amplitude: 0.8-1.8 v Electrodes: +/-/+ Pulse width: 90 microseconds Rate: 33 hz Start delay: 30 Minutes Pause time: 10 minutes Therapy duration: 10 hours Changes made today: changed range to from 1.0-2.0 V ASSESSMENT AND PLAN Lakeshamelia Squires Jr is a 58 MALE with HTN, DM2, Depression, HLD and severe ARLETH s/p HNS implant (04/2020), here for follow-up Patient's recent Right TKA and opioids, pain, and increase PO hydration with urination at night contributing to temporarily worsening of sleep with more night awakenings. Patient reports that 2 weeks prior to TKA he was 1.6v and was waking up with restful 8 hours of sleep, so we agreed to continue 1.6V but will allow more range to allow patient more room to adjust if needed as he recovers from TKA. #Severe ARLETH s/p HNS implant -Changes to HNS are described above, continue 1.6 V (range of 1.0 V to 2.0 V) -Consider repeat sleep study with inspire after next appointment This patient was discussed with Dr. Brooks Thank you for involving us in his care /janine/ AZEB PAREDES Psychiatry Fellow Signed: 05/03/2024 10:52 /janine/ MODE BROOKS MD ATTENDING Cosigned: 05/03/2024 14:17 AZEB PAREDES [facility]
--- OUTSIDE RECORDS SUMMARY | 2024-06-03 08:59 | XMS_ITS | Encounter Summary ---
Author Name [facility] Organization [facility] [place] [place] Address [address] [place] [address] Care Team Providers Care Commission Broker Name Role Phone ARIEL JIMENEZ Primary Care [...] Parra's Name Patient's Relationship to Policy Parra [facility] Dec 19, 2015 [id number] [id number] [employer] PATIENT [facility] Dec 19, 2015 [id number] [phone] [employer] PATIENT [facility] May 29, 2012 [id number] [employer] PATIENT Selected Encounter This section includes the information on record at [place] for the Encounter. Date/Time Encounter Type Encounter Description Reason Provider Source Jun 29, 2023 01:00 PM OFFICE O/P EST HI 40 MIN PRIMARY CARE/MEDICINE ICD-10-CM E11.40 Type 2 diabetes mellitus with diabetic neuropathy, unsp FURCOLO,ARIEL IHE Encounter Template Text not used by [place] Assessments - Encounter Diagnoses This section includes the primary and secondary diagnoses documented for the Encounter. Date/Time Primary/Secondary Diagnosis Diagnosis Name Provider Source Jun 30, 2023 12:03 PM PRIMARY Type 2 diabetes mellitus with diabetic neuropathy, unsp FURCOLO,ARIEL [facility] Jun 30, 2023 12:03 PM SECONDARY Adjustment disorder with mixed anxiety and depressed mood FURCOLO,ARIEL [facility] Jun 30, 2023 12:03 PM SECONDARY Essential (primary) hypertension FURCOLO,ARIEL [facility] Jun 30, 2023 12:03 PM SECONDARY Obstructive sleep apnea (adult) (pediatric) FURCOLO,ARIEL [facility] Jun 30, 2023 12:03 PM SECONDARY Radiculopathy, lumbar region FURCOLO,ARIEL [facility] Jun 30, 2023 12:03 PM SECONDARY Type 2 diabetes mellitus without complications FURCOLO,ARIEL [facility] Plan of Treatment: Future Appointments (+ 6 months) and Future Tests (+/- 45 days) The Plan of Treatment section includes future care activities for the patient [facility] This section includes future appointments and future orders which are active, pending or scheduled. Future Appointments This section includes appointments that were scheduled to occur 6 months from the date of the Encounter, up to a maximum of 20 appointments. The data comes from all [place] treatment facilities. Appointment Date/Time Appointment Type Appointme nt Facility Name Jul 03, 2023 07:00 AM AMBULATORY - REHAB MEDICIN E [facility] Jul 11, 2023 01:30 PM AMBULATORY - MEDICINE [facility] Jul 25, 2023 01:00 PM AMBULATORY - REHAB MEDICIN E [facility] Aug 09, 2023 08:30 AM AMBULATORY - PSYCHIATRY [facility] Aug 18, 2023 09:00 AM AMBULATORY - REHAB MEDICIN E [facility] Aug 24, 2023 09:00 AM AMBULATORY - REHAB MEDICIN E [facility] Aug 28, 2023 08:45 AM AMBULATORY [facility] MEDICINE [facility] Aug 29, 2023 10:43 AM [facility] Sep 22, 2023 07:30 AM AMBULATORY - REHAB MEDICIN E [facility] September 27, 2023 10:00 AM AMBULATORY [facility] MEDICINE [facility] October 18, 2023 03:30 PM AMBULATORY - REHAB MEDICIN E [facility] October 26, 2023 02:00 PM AMBULATORY - MEDICINE [facility] Nov 09, 2023 08:30 AM AMBULATORY - PSYCHIATRY [facility] Lab Results: +/- 30 days of the encounter This section includes the Chemistry and Hematology Lab Results on record with [facility] for the patient. Radiology Reports and Pathology Reports are provided separately, in subsequent sections. Lab Results This section contains the Chemistry/Hematology Results that were resulted 30 days before or 30 daysafter the date of the Encounter. Date/Time Source Result Type Result - Unit Interpretation Reference Range Comment Jun 22, 2023 10:28 AM [facility] LIVER FUNCTION Specimen Type: SERUM No comment entered. Ordering Provider: ARIEL JIMENEZ Report Released Date/Time: Jun 22, 2023 09:13 AM Reporting Lab: [address] [address] Performing Lab: [address] [address] PROTEIN,TOTAL 7.2 g/dL 6.0-8.3 ALBUMIN 4.6 g/dL 3.5-5.0 ALKALINE PHOSPHATASE 40 U/L 40-150 AST 26 U/L 5-34 ALT 37 U/L BILIRUBIN, TOTAL 0.8 mg/dL 0.2-1.2 Jun 22, 2023 10:28 AM [facility] CBC Specimen Type: BLOOD No comment entered. Ordering Provider: ARIEL JIMENEZ Report Released Date/Time: Jun 22, 2023 09:13 AM Reporting Lab: [facility] [address] [facility] [address] Performing Lab: [facility] [address] [facility] [address] WBC 6.16 10*3/uL 4.50-11.00 RBC 5.11 10*6/uL 4.23-5.66 HGB 15.9 g/dL 12.8-17 HCT 47.1 39.2-50.4 MCV 92.2 fL 82-99 MCHC 33.8 g/dL 30.8-35.1 PLT 193 10*3/uL 140-360 RDW-CV 12.4 12.0-16.0 MCH 31.1 pg 26.2-32.6 Jun 22, 2023 10:28 AM [facility] HEMOGLOBIN A1C PANEL Specimen Type: BLOOD [...] Jun 22, 2023 09:13 AM Reporting Lab: [facility] [address] [address] Performing Lab: [address] [address] HEMOGLOBIN A1C 5.7 H 4.0-5.6 Jun 22, 2023 10:28 AM [facility] BASIC METABOLIC PANEL (fasting) Specimen Type: SERUM No comment entered. Ordering Provider: ARIEL JIMENEZ Report Released Date/Time: Jun 22, 2023 09:13 AM Reporting Lab: [facility] [address] [facility] [address] Performing Lab: [address] [address] UREA NITROGEN 23 mg/dL 7-25 GLUCOSE 123 mg/dL H 65-100 SODIUM 139 mmol/L 135-145 POTASSIUM 4.5 mmol/L 3.5-5.0 CHLORIDE 102 mmol/L 100-110 CO2 29 meq/L 20-30 CREATININE, Serum 0.81 mg/dL 0.50-1.40 eGFR(CKD-EPI 2020) >90 mL/min >60 Jun 22, 2023 10:28 AM [facility] LIP[facility] PAN[facility] FASTING Specimen Type: SERUM No comment entered. Ordering Provider: ARIEL JIMENEZ Report Released Date/Time: Jun 22, 2023 09:13 AM Reporting Lab: [facility] [address] [address] Performing Lab: [address] [address] CHOLESTEROL 144 mg/dL TRIGLYCERIDE 48 mg/dL 0-150 LDL calculated 70 mg/dL 0-129 CHOL/HDL 2.3 HDL CHOLESTEROL 64 mg/dL H 40-60 Jun 22, 2023 10:28 AM [facility] PSA Specimen Type: SERUM No comment entered. Ordering Provider: ARIEL JIMENEZ Report Released Date/Time: Jun 22, 2023 09:13 AM Reporting Lab: [facility] [address] [facility] [address] Performing Lab: [address] [address] PSA 1.78 ng/mL 0.00-4.00 Vital Signs: All taken on the encounter date This section contains inpatient and outpatient Vital Signs collected on the date of the Encounter. Date/Time Temperature Pulse Blood Pressure Respiratory Rate SP02 Pain Height Weight Body Mass Index Source Jun 29, 2023 12:54 PM 98.1 86 106/70 20 99 5 75 208 26 [facility] Social History: Smoking Status (Most current) and Tobacco Use (All prior to encounter date) This section includes the most current, and the historical, smoking and tobacco- related health factors from the [facility] facility where the Encounter took place. Current Smoking Status This section includes the most current smoking, or tobacco-related health factor, from the [facility] facility where the Encounter took place. Date/Time Current Smoking Status Comment Facil ity Jun 22, 2023 09:00 AM VA-TOBACCO USER SOME DAYS [facility] Tobacco Use History This section includes a history of the smoking, or tobacco-related health factors, that were collected on or before the date of the Encounter. The data comes from the [facility] facility where the Encounter took place. Date/Time Smoking Status/Tobacco Use Comment F acility Jun 22, 2023 09:00 AM VA-TOBACCO USE 30 [facility] OR [facility] Jun 22, 2023 09:00 AM VA-TOBACCO USE ADVICE 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 Jun 22, 2023 09:00 AM VA-TOBACCO USE MED NO [facility] Jun 22, 2023 09:00 AM VA-TOBACCO USER SOME DAYS [facility] Jan 13, 2022 02:00 PM VA-TOBACCO NEVER USED [facility] Jul 06, 2009 03:46 PM QUIT TOBACCO USE > 7 YEARS AGO [facility] Advance Directives: All historical and current Section Date Range: From patient's date of to the date document was created. This section includes ALL of a patient's completed or amended [facility] Advance and Rescinded Directives. The entries below indicate that a directive exists for the patient, but an actual copy is not included with this document. The data comes from all [facility] facilities. Date Advance Directives Provider Source Jun 29, 2023 ADVANCE DIRECTIVE JAMES GALLO [facility] Sep 19, 2017 ADVANCE DIRECTIVE DINA MCGINNIS [facility] Encounter Notes: All associated encounter notes This section contains the clinical notes associated to the Encounter. Date/Time Encounter Note(s) Provider Source Jun 29, 2023 12:57 PM PREVENTIVE MEDICINE NURSING NOTE: LOCAL TITLE: CLINICAL REMINDERS/NURSING STANDARD TITLE: PREVENTIVE MEDICINE NURSING NOTE DATE OF NOTE: JUN 29, 2023@12:57 ENTRY DATE: JUN 29, 2023@12:57:31 AUTHOR: MONISHA,GERALD EXP COSIGNER: URGENCY: STATUS: COMPLETED Advance Directive Screen AD: Patient has an Advance Directive on file at this [facility]. No updates are needed at this time. The patient received education about Advance Directives and written notification of his/her rights. /janine/ Gerald Bearden, Health Political Organizer OVEREDGER,PRIMARY CARE Signed: 06/29/2023 12:58 GERALD BEARDEN [facility] Jun 29, 2023 12:04 PM PHYSICIAN NOTE: LOCAL TITLE: MD NOTE STANDARD TITLE: PHYSICIAN NOTE DATE OF NOTE: JUN 29, 2023@12:04 ENTRY DATE: JUN 29, 2023@12:04:21 AUTHOR: ARIEL JIMENEZ EXP COSIGNER: URGENCY: STATUS: COMPLETED LAKESHA SQUIRES is a 57 year old WHITE MALE who is being seen today in primary care to establish with new PACT team. CARE TEAM Community Primary Care Provider: [facility] Specialists: E[facility]- DR. 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. HISTORY OF PRESENT ILLNESS sent list of issues through [employer]: I have concerns relating to my diabetes [...] my best to control it with ibuprofen and, as needed, but Tylenol, but the bottom line is that moving in and out of the car, walking, at most times, are challenging and painful. I would like to explore the possibility of changing my plates to disabled plates. I've done great work in weight loss, nearly 70 pounds, over the past year, but that hasn't been helpful. Lastly, I have an Inspire Sleep, that was going to be implanted by the [facility], but Pat had other ideas and I just couldn't catch a break and kept loosing my bed at [place]. I ended up using my 's insurance and [place] [facility] [place] doc has since retired and I'd like to continue my care with the [facility] respiratory folks, if that's possible. RELEVANT PAST MEDICAL HISTORY Active problems - Computerized Problem List is the source for the followin. Diabetes mellitus with neuropathy 2. Lumbar radiculopathy 3. Obstructive sleep apnea syndrome 4. Adjustment disorder with anxious mood reviewed reviewed 5. Essential hypertension 6. Colonoscopy normal in 2013; was told normal; 7. Hyperlipidemia 8. Knee pain (SNOMED CT 33295950) 9. Diabetes mellitus type 2 without retinopathy (SNOMED CT 5159785518660) 10. Asthma 11. Hearing loss 12. 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 Active and Recently Outpatient Medications (excluding Supplies): Active Outpatient Medications Status 1) ACCU-CHEK GUIDE (GLUCOSE) TEST STRIP USE 1 STRIP TO ACTIVE TEST BLOOD SUGARS ONCE DAILY 2) ATORVASTATIN CALCIUM 80MG TAB TAKE ONE-HALF TABLET BY ACTIVE (S) MOUTH EVERY EVENING AFTER SUPPER FOR CHOLESTEROL 3) BUPROPION HCL 150MG 12HR SA TAB TAKE ONE TABLET BY ACTIVE MOUTH EVERY MORNING FOR MOOD 4) EMPAGLIFLOZIN 10MG TAB TAKE ONE TABLET BY MOUTH ONCE ACTIVE (S) DAILY FOR DIABETES 5) HYDROCHLOROTHIAZIDE 12.5MG CAP TAKE ONE CAPSULE BY ACTIVE MOUTH DAILY 6) LISINOPRIL 5MG TAB TAKE ONE TABLET BY MOUTH DAILY TO ACTIVE CONTROL BLOOD PRESSURE 7) SEMAGLUTIDE 1MG/0.75ML INJ PEN 3ML INJECT 1MG ACTIVE SUBCUTANEOUSLY ONCE A WEEK FOR DIABETES (REPLACES DULAGLUTIDE [TRULICITY]) Inactive Outpatient Medications Status 1) INSULIN,GLARGINE-YFGN 100UNIT/ML PEN 3ML INJECT 40 UNITS SUBCUTANEOUSLY AT BEDTIME FOR DIABETES (SAME LANTUS) Active Non-VA Medications Status 1) Non-VA ALBUTEROL INHALER INHL,ORAL 2 PUFFS BY MOUTH ACTIVE EVERY 4 HOURS NEEDED 2) Non-VA ASPIRIN 81MG EC TAB 81MG BY MOUTH DAILY ACTIVE 3) Non-VA LORATADINE 10MG TAB 10MG BY MOUTH ONCE DAILY ACTIVE NEEDED 11 Total Medications REVIEW OF SYMPTOMS POSITIVE FOR: knee pain, neuropathy foot NEGATIVE FOR: CONSTITUTION: no weight loss/gain, fatigue, fevers, night sweats HEENT: no vision problems, hearing loss,swallowing difficulties, sinus pain CV: no chest pain, palpitations, dyspnea on exertion, orthopnea RESP: no cough, shortness of breath, wheezing GI: no abdominal pain, N/V/D, constipation, blood in stool, normal appetite : no urinary frequency, nocturia, hematuria MUSC: no joint pain, joint swelling, muscle aches NEURO: no headaches, dizziness, memory loss, tremor, weakness PSYCH: no depression, anxiety, suicidal or homicidal thoughts SKIN: no rash, new skin lesions PHYSICAL EXAM Vitals: - - - - - - - B/P: 106/70 (06/29/2023 12:54) pulse: 86 (06/29/2023 12:54) resp: 20 (06/29/2023 12:54) temp: 98.1 F [36.7 C] (06/29/2023 12:54) Ht: 75 in [190.5 cm] (06/29/2023 12:54) Wgt: 208 lb [94.35 kg] (06/29/2023 12:54) BMI: BMI: 26.1 Exam: - - - - - - - General: A&O x 3, no acute distress, normal affect and mood Neck: normal thyroid, normal carotids- no bruits CV: RRR S1S2, no murmur Resp: LCTA bilat, no wheezing, rales or rhonchi Neuro: grossly intact, no visible tremor, normal memory and speech Extremities: normal movement of extremities, normal gait, normal strength no LE edema RECENT LABS CHEM 7 Results Collection DT Spec Sodium K+/Pot CL CO2 GLUCOSE BUN 06/22/2023 10:28 SERUM 139 4.5 102 29 123 H 23 01/23/2023 07:40 SERUM 141 4.6 105 25 138 H 23 LIVER PANEL TREND Collection DT Spec AST ALT T BILI ALK KIM T. PROT ALBUMIN 06/22/2023 10:28 SERUM 26 37 0.8 40 7.2 4.6 01/23/2023 07:40 SERUM 37 H 53 0.6 46 6.6 4.4 LIPID PANEL TREND Collection DT Spec CHOL HDL CHO/HDL LDL-d LDL-c TRIG 06/22/2023 10:28 SERUM 144 64 H 2.3 70 48 01/23/2023 07:40 SERUM 110 52 2.1 34 122 CBC TREND Collection DT Spec WBC RBC HGB HCT MCV MCH PLT 06/22/2023 10:28 BLOOD 6.16 5.11 15.9 47.1 92.2 31.1 193 01/23/2023 07:40 BLOOD 4.98 4.85 15.6 45.0 92.8 32.2 177 PSA TREND Collection DT Spec PSA SR- 06/22/2023 10:28 SERUM 1.78 01/23/2023 07:40 SERUM 2.01 HEMOGLOBIN A1C TREND Collection DT Spec HGBA1c 06/22/2023 10:28 BLOOD 5.7 H 01/23/2023 07:44 BLOOD 5.3 08/18/2022 10:37 BLOOD 5.6 03/11/2022 08:06 BLOOD 6.4 H 02/05/2021 09:18 BLOOD 6.6 H ASSESSMENT AND PLAN Active problems - Computerized Problem List is the source for the followin. Diabetes mellitus with neuropathy- poorly controlled in the HbA1c 11-12 range for about 10 years. Over the past 5 years- has been MUCH better. has made significant improvements with his diet/lifestyle, has lost about 70 lbs (with help of ozempic) and has titrated down from insulin 40 units to 10 units nightly. highest morning BS is 130. recommend tapering OFF of insulin entirely- reduce by 2 units every 1-2 weeks. if BS start to increase- can increase ozempic to 2 mg dose. reducing insulin will alos help with further weight loss. 2. Lumbar radiculopathy- may benefit from gabapentin. will discuss more at next visit. 3. Obstructive sleep apnea syndrome- had inspire surgical procedure (through community [facility] provider) - as there were delays within the [facility] system to get completed during covid. now needs follow-up [facility] has a sensor device which is no longer working very well. Placed consult. 4. Adjustment disorder with anxious mood - more depression recently. has been on sertraline- but with erectile dysfunction- recent change to wellbutrin. will use viagra for the next few motnhs as needed. suspect when sertraline is out of his system entirely- may not need to use as much. 5. Essential hypertension- at goal 6. Colonoscopy normal in 2013; was told normal; 7. Hyperlipidemia 8. Knee pain (SNOMED CT [id number]) 9. Diabetes mellitus type 2 without retinopathy (SNOMED CT [id number]) HEALTH MAINTENANCE Colonoscopy - Abdominal Aortic Aneurysm Screening (due at age 65 if smoker/prev smoker) - Prostate screening - Tetanus: due every 10 years Pneumonia Vacccine: Flu Vaccine: due yearly Covid Vaccine: due yearly FOLLOW UP f/u in 6 months VISIT TYPE: a HIGH complexity visit where over 60 minutes was spent in direct patient care, review of records and documentation. Upcoming Appointments: 07/03/2023 07:00 CWM/NO/AUDIOLOGY/HAC B 08/09/2023 08:30 SPOPC/MHC/LARROW 02/19/2024 08:30 NHM/OPTOMETRY/AYANAI /es/ ARIEL JIMENEZ D.O. PHYSICIAN Signed: 06/30/2023 12:04 ARIEL JIMENEZ [facility]
--- OUTSIDE RECORDS SUMMARY | 2024-06-03 08:59 | XMS_ITS ---
Author Name [facility] Address [address] [place] [address] Care Team Providers Care Steamboat Inspector Name Role Phone ARIEL JIMENEZ Primary Care [...] Name Patient's Relationship to Policy Parra [facility] Dec 19, 2015 [id number] [phone] TANA NGO PATIENT [facility] Dec 19, 2015 [id number] LAKESHA NGO PATIENT [facility] May 29, 2012 [id number] [phone] TANA NGO PATIENT Selected Encounter This section includes the information on record at [place] for the Encounter. Date/Time Encounter Type Encounter Description Reason Pro vider Source Jun 29, 2023 01:02 PM Outpatient Encounter PRIMARY CARE/MEDICINE IHE Encounter Template Text not used by VA Plan of Treatment: Future Appointments (+ 6 months) and Future Tests (+/- 45 days) The Plan of Treatment section includes future care activities for the patient from all [place] [facility] This section includes future appointments and future orders which are active, pending or scheduled. Future Appointments This section includes appointments that were scheduled to occur 6 months from the date of the Encounter, up to a maximum of 20 appointments. The data comes from all [place] treatment facilities. Appointment Date/Time Appointment Type Appointme nt Facility Name Jul 03, 2023 07:00 AM AMBULATORY - [place] [place] [facility] [place] [facility] Jul 11, 2023 01:30 PM AMBULATORY - MEDICINE [facility] Jul 25, 2023 01:00 PM AMBULATORY - RE[facility]AB MEDICIN E [facility] [place] [facility] Aug 09, 2023 08:30 AM AMBULATORY - PSYCHIATRY [facility] Aug 18, 2023 09:00 AM AMBULATORY - REHAB MEDICIN E [facility] [place] [facility] Aug 24, 2023 09:00 AM AMBULATORY - REHAB MEDICIN E [facility] [place] [facility] Aug 28, 2023 08:45 AM AMBULATORY - MEDICINE [place] [facility] [place] [facility] Aug 29, 2023 10:43 AM AMBULATORY - MEDICINE [facility] Sep 22, 2023 07:30 AM AMBULATORY - REHAB MEDICIN E [facility] [place] [facility] September 27, 2023 10:00 AM AMBULATORY - MEDICINE [place] [facility] [place] [facility] October 18, 2023 03:30 PM AMBULATORY - REHAB MEDICIN E [facility] [place] [facility] October 26, 2023 02:00 PM AMBULATORY - MEDICINE [facility] Nov 09, 2023 08:30 AM AMBULATORY - PSYCHIATRY [facility] Lab Results: +/- 30 days of the encounter This section includes the Chemistry and Hematology Lab Results on record with [place] for the patient. Radiology Reports and Pathology Reports are provided separately, in subsequent sections. Lab Results This section contains the Chemistry/Hematology Results that were resulted 30 days before or 30 daysafter the date of the Encounter. Date/Time Source Result Type Result - Unit Interpretation Reference Range Comment Jun 22, 2023 10:28 AM [facility] LIVER FUNCTION Specimen Type: SERUM No comment entered. Ordering Provider: ARIEL JIMENEZ Report Released Date/Time: Jun 22, 2023 09:13 AM Reporting Lab: [facility] [address] [address] Performing Lab: [address] [address] PROTEIN,TOTAL 7.2 g/dL 6.0-8.3 ALBUMIN 4.6 g/dL 3.5-5.0 ALKALINE PHOSPHATASE 40 U/L 40-150 AST 26 U/L 5-34 ALT 37 U/L BILIRUBIN, TOTAL 0.8 mg/dL 0.2-1.2 Jun 22, 2023 10:28 AM [facility] CBC Specimen Type: BLOOD No comment entered. Ordering Provider: ARIEL JIMEENZ Report Released Date/Time: Jun 22, 2023 09:13 AM Reporting Lab: [address] [address] Performing Lab: [address] [address] WBC 6.16 10*3/uL 4.50-11.00 RBC 5.11 10*6/uL 4.23-5.66 HGB 15.9 g/dL 12.8-17 HCT 47.1 39.2-50.4 MCV 92.2 fL 82-99 MCHC 33.8 g/dL 30.8-35.1 PLT 193 10*3/uL 140-360 RDW-CV 12.4 12.0-16.0 MCH 31.1 pg 26.2-32.6 Jun 22, 2023 10:28 AM [facility] LIPID PANEL FASTING Specimen Type: SERUM No comment entered. Ordering Provider: ARIEL JIMENEZ Report Released Date/Time: Jun 22, 2023 09:13 AM Reporting Lab: [address] [address] Performing Lab: [address] [address] CHOLESTEROL 144 mg/dL TRIGLYCERIDE 48 mg/dL 0-150 LDL calculated 70 mg/dL 0-129 CHOL/HDL 2.3 HDL CHOLESTEROL 64 mg/dL H 40-60 Jun 22, 2023 10:28 AM [facility] BASIC METABOLIC PANEL (fasting) Specimen Type: SERUM No comment entered. Ordering Provider: ARIEL JIMENEZ Report Released Date/Time: Jun 22, 2023 09:13 AM Reporting Lab: [facility] [address] [address] Performing Lab: [facility] [address] [address] UREA NITROGEN 23 mg/dL 7-25 GLUCOSE 123 mg/dL H 65-100 SODIUM 139 mmol/L 135-145 POTASSIUM 4.5 mmol/L 3.5-5.0 CHLORIDE 102 mmol/L 100-110 CO2 29 meq/L 20-30 CREATININE, Serum 0.81 mg/dL 0.50-1.40 eGFR(CKD-EPI 2020) >90 mL/min >60 Jun 22, 2023 10:28 AM [facility] HEMOGLOBIN A1C PANEL Specimen Type: BLOOD [...] Jun 22, 2023 09:13 AM Reporting Lab: [facility] [address] [address] Performing Lab: [address] [address] HEMOGLOBIN A1C 5.7 H 4.0-5.6 Jun 22, 2023 10:28 AM [facility] PSA Specimen Type: SERUM No comment entered. Ordering Provider: ARIEL JIMENEZ Report Released Date/Time: Jun 22, 2023 09:13 AM Reporting Lab: [address] [place] [address] Performing Lab: [place] [facility] [place] [facility] [address] [address] PSA 1.78 ng/mL 0.00-4.00 Vital Signs: All taken on the encounter date This section contains inpatient and outpatient Vital Signs collected on the date of the Encounter. Date/Time Temperature Pulse Blood Pressure Respiratory Rate SP02 Pain Height Weight Body Mass Index Source Jun 29, 2023 12:54 PM 98.1 86 106/70 20 99 5 75 208 26 [place] [facility] [place] [facility] Social History: Smoking Status (Most current) and Tobacco Use (All prior to encounter date) This section includes the most current, and the historical, smoking and tobacco- related health factors from the [place] facility where the Encounter took place. Current Smoking Status This section includes the most current smoking, or tobacco-related health factor, from the [place] facility where the Encounter took place. Date/Time Current Smoking Status Comment Facil ity Jun 22, 2023 09:00 AM VA-TOBACCO USER SOME DAYS [place] [facility] Tobacco Use History This section includes a history of the smoking, or tobacco-related health factors, that were collected on or before the date of the Encounter. The data comes from the [place] facility where the Encounter took place. 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 This section includes ALL of a patient's completed or amended [place] Advance and Rescinded Directives. The entries below indicate that a directive exists for the patient, but an actual copy is not included with this document. The data comes from all [place] facilities. Date Advance Directives Provider Source Jun 29, 2023 ADVANCE DIRECTIVE JAMES GALLO [facility] Sep 19, 2017 ADVANCE DIRECTIVE MCGINNISDINA YANCEY [facility] Encounter Notes: All associated encounter notes This section contains the clinical notes associated to the Encounter. Date/Time Encounter Note(s) Provider Source Jun 29, 2023 01:02 PM ADVANCE DIRECTIVE: LOCAL TITLE: ADVANCE DIRECTIVE STANDARD TITLE: ADVANCE DIRECTIVE DATE OF NOTE: JUN 29, 2023@13:02 ENTRY DATE: JUN 29, 2023@13:02:34 AUTHOR: JAMES GALLO EXP COSIGNER: URGENCY: STATUS: COMPLETED * [X]Advance Directive executed with . [ ]Patient brought in his/her own Advance Directive. Scanned Advance Directive or Advance Directive/AOD Flowsheet is located in [employer] /janine/ JAMES GALLO ADVANCED PALEOBOTANIST Signed: 06/29/2023 13:02 JAMES GALLO [facility]
--- OUTSIDE RECORDS SUMMARY | 2024-06-03 08:59 | XMS_ITS ---
Author Name [facility] [place] [facility] [place] Address [address] [place] [address] Care Team Providers Care Hairspring I Inspector Name Role Phone ARIEL JIMENEZ Primary [...] Parra's Name Patient's Relationship to Policy Parra [facility] Dec 19, 2015 [id number] TANA NGO PATIENT [facility] Dec 19, 2015 [id number] LAKESHA NGO PATIENT [facility] May 29, 2012 [id number] [employer] PATIENT Selected Encounter This section includes the information on record at [place] for the Encounter. Date/Time Encounter Type Encounter Description Reason Pro vider Source Aug 08, 2023 08:11 AM Outpatient Encounter OPTOMETRY E Encounter Template Text not used by VA Plan of Treatment: Future Appointments (+ 6 months) and Future Tests (+/- 45 days) The Plan of Treatment section includes future care activities for the patient from all [place] [facility]. This section includes future appointments and future orders which are active, pending or scheduled. Future Appointments This section includes appointments that were scheduled to occur 6 months from the date of the Encounter, up to a maximum of 20 appointments. The data comes from all [place] treatment facilities. Appointment Date/Time Appointment Type Appointme nt Facility Name Aug 09, 2023 08:30 AM AMBULATORY - PS[facility]CHIATRY [facility] Aug 18, 2023 09:00 AM AMBULATORY - [place] MEDICIN [place] [facility] [place] [facility] Aug 24, 2023 09:00 AM AMBULATORY - REHAB MEDICIN E [facility] [place] [facility] Aug 28, 2023 08:45 AM AMBULATORY - MEDICINE [place] [facility] Aug 29, 2023 10:43 AM [facility]UL[facility] Sep 22, 2023 07:30 AM AMBULATORY - REHAB MEDICIN E [place] [facility] [place] [facility] September 27, 2023 10:00 AM AMBULATORY - MEDICINE [facility] [place] [facility] October 18, 2023 03:30 PM AMBULATORY - REHAB MEDICIN E [place] [facility] [place] [facility] October 26, 2023 02:00 PM AMBULATORY - MEDICINE [facility] Nov 09, 2023 08:30 AM AMBULATORY - PSYCHIATRY [facility] Social History: Smoking Status (Most current) and Tobacco Use (All prior to encounter date) This section includes the most current, and the historical, smoking and tobacco- related health factors from the [place] facility where the Encounter took place. Current Smoking Status This section includes the most current smoking, or tobacco-related health factor, from the [place] facility where the Encounter took place. Date/Time Current Smoking Status Comment Facil ity Jun 22, 2023 09:00 AM VA-TOBACCO DOESNT USE WI 30 MIN WAKEUP [facility] Tobacco Use History This section includes a history of the smoking, or tobacco-related health factors, that were collected on or before the date of the Encounter. The data comes from the [place] facility where the Encounter took place. Date/Time Smoking Status/Tobacco Use Comment F acility Jun 22, 2023 09:00 AM VA-TOBACCO USE 30 YEARS OR MORE [facility] Jun 22, 2023 09:00 AM VA-TOBACCO USE ADVICE [facility] Jun 22, 2023 09:00 AM [facility] Jun 22, 2023 09:00 AM VA-TOBACCO USE MED NO [facility] Jun 22, 2023 09:00 AM VA-TOBACCO USER SOME DAYS [facility] Jan 13, 2022 02:00 PM VA-TOBACCO NEVER USED [facility] Jul 06, 2009 03:46 PM QUIT TOBACCO USE > 7 YEARS AGO [facility] Advance Directives: All historical and current Section Date Range: From patient's date of to the date document was created. This section includes ALL of a patient's completed or amended [place] Advance and Rescinded Directives. The entries below indicate that a directive exists for the patient, but an actual copy is not included with this document. The data comes from all [place] facilities. Date Advance Directives Provider Source Jun 29, 2023 ADVANCE DIRECTIVE JAMES GALLO [facility] Sep 19, 2017 ADVANCE DIRECTIVE DINA MCGINNIS [facility] Encounter Notes: All associated encounter notes This section contains the clinical notes associated to the Encounter. Date/Time Encounter Note(s) Provider Source Aug 09, 2023 08:18 AM ADDENDUM: LOCAL TITLE: Addendum STANDARD TITLE: ADDENDUM DATE OF NOTE: AUG 09, 2023@08:18:28 ENTRY DATE: AUG 09, 2023@08:18:29 AUTHOR: KAIDEN PABON COSIGNER: URGENCY: STATUS: COMPLETED Approved for rereji /jeff PABON OD STAFF MONUMENT ERECTOR Signed: 08/09/2023 08:18 Receipt Acknowledged By: 08/09/2023 14:57 /jeff LLAMAS OPTOMETRY TECH ====== --- Original Document --- 08/08/23 TELEPHONE NOTE/SPECIALTY CLINIC: Good Morning, Your office was good enough to order replacement sun glasses. I have not received them yet. Can someone please follow up with the company on the status? Thank you, Vijay /es/ GORGE BURGOS ADVANCED OIL WELL DRILLER Signed: 08/08/2023 08:11 Receipt Acknowledged By: 08/08/2023 10:06 /janine/ TERRELL FELIXUTIER OPTOMETRY TECH 08/08/2023 09:36 /es/ [facility] 08/08/2023 10:03 /es/ Germaine Alicea [facility]ometry Health Entertainment Reporter * AWAITING SIGNATURE * DINO PADILLA 08/08/2023 ADDENDUM STATUS: COMPLETED I called vet to say that I attempted to track order that was placed, and that the tracking portion of the web site is not working at the moment. I told him I will follow up, re try to track the glasses, and see what next step is necessary if they are lost. /janine/ TERRELL Green [employer] ([employer]) OPTOMETRY TECH Signed: 08/08/2023 08:49 08/08/2023 ADDENDUM STATUS: COMPLETED Glasses were delivered according to tracking #[id number] on 07/03/2023 at 4:26pm. Vet says he did not get them. I will ask provider permission to reorder /janine/ TERRELL Green [employer] ([employer]) OPTOMETRY TECH Signed: 08/08/2023 09:52 Receipt Acknowledged By: 08/09/2023 08:18 /es/ KAIDEN PABON OD STAFF MONUMENT ERECTOR 08/08/2023 ADDENDUM STATUS: COMPLETED Spencer called back stating he would greatly appreciate a reorder. Confirmed address on file /es/ TINY GUY OIL WELL DRILLER Signed: 08/08/2023 09:56 Receipt Acknowledged By: 08/08/2023 10:06 /janine/ TERRELL LLAMAS OPTOMETRY TECH [place]EN PABON [place] [facility] [place] [facility] Aug 08, 2023 09:54 AM ADDENDUM: LOCAL TITLE: Addendum STANDARD TITLE: ADDENDUM DATE OF NOTE: AUG 08, 2023@09:54:48 ENTRY DATE: AUG 08, 2023@09:54:50 AUTHOR: TINY GUY EXP COSIGNER: URGENCY: STATUS: COMPLETED Spencer called back stating he would greatly appreciate a reorder. Confirmed address on file /janine/ TINY GUY OIL WELL DRILLER Signed: 08/08/2023 09:56 Receipt Acknowledged By: 08/08/2023 10:06 /janine/ TERRELL Green [employer] ([employer]) OPTOMETRY TECH ====== --- Original Document --- 08/08/23 TELEPHONE NOTE/SPECIALTY CLINIC: Good Morning, Your office was good enough to order replacement sun glasses. I have not received them yet. Can someone please follow up with the company on the status? Thank you, Vijay /janine/ GORGE BURGOS ADVANCED OIL WELL DRILLER Signed: 08/08/2023 08:11 Receipt Acknowledged By: 08/08/2023 10:06 /janine/ TERRELL FELIXUTIER OPTOMETRY TECH 08/08/2023 09:36 /janine/ ZEV [facility] 08/08/2023 10:03 /janine/ Germaine Alicea Optometry Health Entertainment Reporter * AWAITING SIGNATURE * DINO PADILLA 08/08/2023 ADDENDUM STATUS: COMPLETED I called vet to say that I attempted to track order that was placed, and that the tracking portion of the web site is not working at the moment. I told him I will follow up, re try to track the glasses, and see what next step is necessary if they are lost. /janine/ TERRELL Green [employer] (NO[employer]) OPTOMETRY TECH Signed: 08/08/2023 08:49 08/08/2023 ADDENDUM STATUS: COMPLETED Glasses were delivered according to tracking #[id number] on 07/03/2023 at 4:26pm. Vet says he did not get them. I will ask provider permission to reorder /jeff LLAMAS OPTOMETRY TECH Signed: 08/08/2023 09:52 Receipt Acknowledged By: * AWAITING SIGNATURE * KAIDEN PABON ERIKA D [place] [facility] Aug 08, 2023 09:49 AM ADDENDUM: LOCAL TITLE: Addendum STANDARD TITLE: ADDENDUM DATE OF NOTE: AUG 08, 2023@09:49:30 ENTRY DATE: AUG 08, 2023@09:49:31 AUTHOR: TERRELL LLAMAS EXP COSIGNER: URGENCY: STATUS: COMPLETED Glasses were delivered according to tracking #[id number] on 07/03/2023 at 4:26pm. Vet says he did not get them. I will ask provider permission to reorder /jeff LLAMAS OPTOMETRY TECH Signed: 08/08/2023 09:52 Receipt Acknowledged By: 08/09/2023 08:18 /janine/ KAIDEN PABON OD STAFF MONUMENT ERECTOR ====== --- Original Document --- 08/08/23 TELEPHONE NOTE/SPECIALTY CLINIC: Good Morning, Your office was good enough to order replacement sun glasses. I have not received them yet. Can someone please follow up with the company on the status? Thank you, Vijay /janine/ GORGE BURGOS ADVANCED OIL WELL DRILLER Signed: 08/08/2023 08:11 Receipt Acknowledged By: 08/08/2023 10:06 /jeff LLAMAS OPTOMETRY TECH 08/08/2023 09:36 /janine/ [facility] 08/08/2023 10:03 /es/ Germaine Alieca Opt[facility] Health Entertainment Reporter * AWAITING SIGNATURE * DINO PADILLA 08/08/2023 ADDENDUM STATUS: COMPLETED I called vet to say that I attempted to track order that was placed, and that the tracking portion of the web site is not working at the moment. I told him I will follow up, re try to track the glasses, and see what next step is necessary if they are lost. /janine/ TERRELL LLAMAS OPTOMETRY TECH Signed: 08/08/2023 08:49 08/08/2023 ADDENDUM STATUS: COMPLETED called back stating he would greatly appreciate a reorder. Confirmed address on file /es/ TINY GUY OIL WELL DRILLER Signed: 08/08/2023 09:56 Receipt Acknowledged By: 08/08/2023 10:06 /janine/ TERRELL LLAMAS OPTOMETRY TECH TERRELL LLAMAS [place] [facility] Aug 08, 2023 08:11 AM TELEPHONE ENCOUNTE R NOTE: LOCAL TITLE: TELEPHONE NOTE/SPECIALTY CLINIC STANDARD TITLE: TELEPHONE ENCOUNTER NOTE DATE OF NOTE: AUG 08, 2023@08:11 ENTRY DATE: AUG 08, 2023@08:11:24 AUTHOR: GORGE BURGOS EXP COSIGNER: URGENCY: STATUS: COMPLETED TELEPHONE NOTE/SPECIALTY CLINIC Has ADDENDA Good Morning, Your office was good enough to order replacement sun glasses. I have not received them yet. Can someone please follow up with the company on the status? Thank you, Vijay /janine/ GORGE BURGOS ADVANCED OIL WELL DRILLER Signed: 08/08/2023 08:11 Receipt Acknowledged By: 08/08/2023 10:06 /janine/ TERRELL LLAMAS OPTOMETRY TECH 08/08/2023 09:36 /es/ ZEV [facility] 08/08/2023 10:03 /janine/ Germaine Alicea Opt[facility] Health Entertainment Reporter 08/10/2023 13:02 /es/ JASON PADILLA SUPERVISORY OIL WELL DRILLER 08/08/2023 ADDENDUM STATUS: COMPLETED I called vet to say that I attempted to track order that was placed, and that the tracking portion of the web site is not working at the moment. I told him I will follow up, re try to track the glasses, and see what next step is necessary if they are lost. /janine/ TERRELL LLAMAS OPTOMETRY TECH Signed: 08/08/2023 08:49 08/08/2023 ADDENDUM STATUS: COMPLETED Glasses were delivered according to tracking #[id number] on 07/03/2023 at 4:26pm. Vet says he did not get them. I will ask provider permission to reorder /janine/ TERRELL LLAMAS OPTOMETRY TECH Signed: 08/08/2023 09:52 Receipt Acknowledged By: 08/09/2023 08:18 /janine/ KAIDEN PABON OD STAFF MONUMENT ERECTOR 08/08/2023 ADDENDUM STATUS: COMPLETED Spencer called back stating he would greatly appreciate a reorder. Confirmed address on file /janine/ TINY GUY OIL WELL DRILLER Signed: 08/08/2023 09:56 Receipt Acknowledged By: 08/08/2023 10:06 /janine/ TERRELL LLAMAS OPTOMETRY TECH 08/09/2023 ADDENDUM STATUS: COMPLETED Approved for reorder /janine/ KAIDEN PABON OD STAFF MONUMENT ERECTOR Signed: 08/09/2023 08:18 Receipt Acknowledged By: 08/09/2023 14:57 /janine/ TERRELL LLAMAS OPTOMETRY TECH GORGE BURGOS [place] [facility]
--- OUTSIDE RECORDS SUMMARY | 2024-06-03 08:59 | XMS_ITS | Encounter Summary ---
Author Name [facility] Organization [place] Address [address] [place] [address] Care Team Providers Care Architectural Wood Model Maker Name Role Phone ARIEL JIMENEZ Primary Care [...] Parra's Name Patient's Relationship to Policy Parra [facility] Dec 19, 2015 [id number] TANA NGO PATIENT [facility] Dec 19, 2015 [id number] [employer]AK[employer] PATIENT [facility] May 29, 2012 [id number] TANA [employer] PATIENT Selected Encounter This section includes the information on record at [place] for the Encounter. Date/Time Encounter Type Encounter Description Reason Provider Source Jul 03, 2023 07:00 AM HEARING AID FITTING/CHECKIN G AUDIOLOGY ICD-10-CM Z46.1 Encounter for fitting and adjustment of hearing aid RADHAMES HORNE IHE Encounter Template Text not used by [place] Assessments - Encounter Diagnoses This section includes the primary and secondary diagnoses documented for the Encounter. Date/Time Primary/Secondary Diagnosis Diagnosis Name Provider Source Jul 03, 2023 07:23 AM PRIMARY Encounter for fitting and adjustment of hearing aid RADHAMES HORNE [place] [facility] [place] [facility] Jul 03, 2023 07:23 AM SECONDARY Sensorineural hearing loss, bilateral COLEENRADHAMES E [place] [facility] [place] [facility] Plan of Treatment: Future Appointments (+ 6 months) and Future Tests (+/- 45 days) The Plan of Treatment section includes future care activities for the patient from all [place] treatmentfacilities. This section includes future appointments and future orders which are active, pending or scheduled. Future Appointments This section includes appointments that were scheduled to occur 6 months from the date of the Encounter, up to a maximum of 20 appointments. The data comes from all [place] treatment facilities. Appointment Date/Time Appointment Type Appointme nt Facility Name Jul 11, 2023 01:30 PM AMBULATORY - MEDICINE [facility] EMERGENCY DEPARTMENT Jul 25, 2023 01:00 PM AMBULATORY - REHAB MEDICIN E [facility] [place] [facility] Aug 09, 2023 08:30 AM AMBULATORY - PSYCHIATRY [facility] Aug 18, 2023 09:00 AM AMBULATORY - REHAB MEDICIN E [facility] [facility] Aug 24, 2023 09:00 AM AMBULATORY - REHAB MEDICIN E [facility] [place] [facility] Aug 28, 2023 08:45 AM AMBULATORY - MEDICINE [facility] [place] [facility] Aug 29, 2023 10:43 AM AMBULATORY - MEDICINE [place] [facility] Sep 22, 2023 07:30 AM AMBULATORY - REHAB MEDICIN E [facility] [facility] September 27, 2023 10:00 AM AMBULATORY - MEDICINE [facility] [place] [place] [facility] October 18, 2023 03:30 PM AMBULATORY - REHAB MEDICIN E [facility] [facility] October 26, 2023 02:00 PM AMBULATORY - MEDICINE [facility] EMERGENCY DEPARTMENT Nov 09, 2023 08:30 AM AMBULATORY - PSYCHIATRY [facility] Lab Results: +/- 30 days [...] Range Comment Jun 22, 2023 10:28 AM [facility] LIVER FUNCTION Specimen Type: SERUM No comment entered. Ordering Provider: ARIEL JIMENEZ Report Released Date/Time: Jun 22, 2023 09:13 AM Reporting Lab: [address] [address] Performing Lab: [address] [address] PROTEIN,TOTAL 7.2 g/dL 6.0-8.3 ALBUMIN 4.6 g/dL 3.5-5.0 ALKALINE PHOSPHATASE 40 U/L 40-150 AST 26 U/L 5-34 ALT 37 U/L BILIRUBIN, TOTAL 0.8 mg/dL 0.2-1.2 Jun 22, 2023 10:28 AM [facility] CBC Specimen Type: BLOOD No comment entered. Ordering Provider: ARIEL JIMENEZ Report Released Date/Time: Jun 22, 2023 09:13 AM Reporting Lab: [address] [address] Performing Lab: [address] [address] WBC 6.16 10*3/uL 4.50-11.00 RBC 5.11 10*6/uL 4.23-5.66 HGB 15.9 g/dL 12.8-17 HCT 47.1 39.2-50.4 MCV 92.2 fL 82-99 MCHC 33.8 g/dL 30.8-35.1 PLT 193 10*3/uL 140-360 RDW-CV 12.4 12.0-16.0 MCH 31.1 pg 26.2-32.6 Jun 22, 2023 10:28 AM [facility] LIPID PANEL FASTING Specimen Type: SERUM No comment entered. Ordering Provider: ARIEL JIMENEZ Report Released Date/Time: Jun 22, 2023 09:13 AM Reporting Lab: [facility] [address] [facility] [address] Performing Lab: [facility] [address] [facility] [address] CHOLESTEROL 144 mg/dL TRIGLYCERIDE 48 mg/dL 0-150 LDL calculated 70 mg/dL 0-129 CHOL/HDL 2.3 HDL CHOLESTEROL 64 mg/dL H 40-60 Jun 22, 2023 10:28 AM [facility] BASIC METABOLIC PANEL (fasting) Specimen Type: SERUM No comment entered. Ordering Provider: ARIEL JIMENEZ Report Released Date/Time: Jun 22, 2023 09:13 AM Reporting Lab: [address] [address] Performing Lab: [address] [address] UREA NITROGEN 23 mg/dL 7-25 GLUCOSE 123 mg/dL H 65-100 SODIUM 139 mmol/L 135-145 POTASSIUM 4.5 mmol/L 3.5-5.0 CHLORIDE 102 mmol/L 100-110 CO2 29 meq/L 20-30 CREATININE, Serum 0.81 mg/dL 0.50-1.40 eGFR(CKD-EPI 2020) >90 mL/min >60 Jun 22, 2023 10:28 AM [facility] HEMOGLOBIN A1C PANEL Specimen Type: [...] Jun 22, 2023 09:13 AM Reporting Lab: [address] [address] Performing Lab: [facility] [place] [facility] [address] [facility] [address] HEMOGLOBIN A1C 5.7 H 4.0-5.6 Jun 22, 2023 10:28 AM [place] [facility] [facility] PSA Specimen Type: SERUM No comment entered. Ordering Provider: ARIEL JIMENEZ Report Released Date/Time: Jun 22, 2023 09:13 AM Reporting Lab: [facility] [address] [facility] [address] Performing Lab: [place] [facility] [place] [facility] [address] [facility] [address] PSA 1.78 ng/mL 0.00-4.00 Social History: Smoking [...] place. Date/Time Current Smoking Status Comment Rosendo rubio Jun 22, 2023 09:00 AM VA-TOBACCO USER SOME DAYS [facility] Tobacco Use History This section includes a history of the smoking, or tobacco-related health factors, that were collected on or before the date of the Encounter. The data comes from the [place] facility where the Encounter took place. Date/Time Smoking Status/Tobacco Use Comment F acility Jun 22, 2023 09:00 AM VA-TOBACCO USE 30 YEARS OR MORE [place] [facility] [facility] Jun 22, 2023 09:00 AM VA-TOBACCO USE ADVICE [facility] [facility] Jun 22, 2023 09:00 AM VA-TOBACCO USE SEAM HAMMERER NO [place] [facility] [place] [facility] Jun 22, 2023 09:00 AM VA-TOBACCO USE MED NO [place] [facility] [facility] Jun 22, 2023 09:00 AM VA-TOBACCO USER SOME DAYS [place] [facility] [facility] Jan 13, 2022 02:00 PM VA-TOBACCO NEVER USED [place] [facility] [place] [facility] Jul 06, 2009 03:46 PM QUIT TOBACCO USE > 7 YEARS AGO [facility] Advance Directives: All historical and [...] Jun 29, 2023 ADVANCE DIRECTIVE JAMES GALLO [facility] Sep 19, 2017 ADVANCE DIRECTIVE MCGINNISDINA YANCEY [facility] Encounter Notes: All associated encounter notes This section contains the clinical notes associated to the Encounter. Date/Time Encounter Note(s) Provider Source Jul 03, 2023 07:00 AM AUDIOLOGY E & M NO TE: [facility] TITLE: AUDIOLOGY CLINIC STANDARD TITLE: AUDIOLOGY E & M NOTE DATE OF NOTE: JUL 03, 2023@07:00 ENTRY DATE: JUL 03, 2023@07:00:11 AUTHOR: RADHAMES HORNE COSIGNER: URGENCY: STATUS: COMPLETED AUDIOLOGY CLINIC Has ADDENDA Naselle has a history of bilateral sensorineural hearing loss. He was seen on 07-03-23 for hearing aid follow up regarding his Phonak RICs. He reports the right aid is , initial check confirms. He notes he sent them to [place] for repair in the fall after they got wet and they haven't worked well since. The right therapy tech and dome were replaced and the left dome was replaced. The listening check was then positive for both hearing aids. An attempt to connect the hearing aids to [facility] was made, however the right aid had a 'detection problem'. It was determined that the hearing aids should go in for repair. They will ship to the clinic. When they arrive, the clinic is to call and schedule a hearing test. This is his only set. Otoscopy was WNLs AU. will contact the clinic as needed. /janine/ Justa HALL, [facility]-A STAFF RAILWAY SIGNAL OPERATOR Signed: 07/03/2023 07:24 07/12/2023 ADDENDUM STATUS: COMPLETED Repaired hearing aids received and certified, spoke with Naselle and schedule Updated Hearing Eval on 07/25/2023. Hearing aids placed in be cabinet Scheduled shelf. /janine/ LAUREL MOSS Audiology Health Grants Officer Signed: 07/12/2023 15:02 RADHAMES HORNE [facility]
--- OUTSIDE RECORDS SUMMARY | 2024-06-03 08:59 | XMS_ITS | Encounter Summary ---
Author Name [place] Organization [place] Address [address] [place] [address] Care Team Providers Care Performing Arts Road Manager Name Role Phone ARIEL JIMENEZ Primary Care [...] Parra's Name Patient's Relationship to Policy Parra [facility] Dec 19, 2015 [id number] TANA [employer] PATIENT [facility] Dec 19, 2015 [id number] [phone] LAK[employer] PATIENT [facility] May 29, 2012 [id number] [phone] [employer] PATIENT Selected Encounter This section includes the information on record at [place] for the Encounter. Date/Time Encounter Type Encounter Description Reason Pro vider Source Aug 09, 2023 10:33 AM Outpatient Encounter OPTOMETRY E Encounter Template Text not used by [facility] Plan of Treatment: Future Appointments (+ 6 months) and Future Tests (+/- 45 days) The Plan of Treatment section includes future care activities for the patient [facility] This section includes future appointments and future orders which are active, pending or scheduled. Future Appointments This section includes appointments that were scheduled to occur 6 months from the date of the Encounter, up to a maximum of 20 appointments. The data comes from all [place] treatment facilities. Appointment Date/Time Appointment Type Appointme nt Facility Name Aug 18, 2023 09:00 AM AMBULATORY - REHAB MEDICIN E [place] [facility] [place] [facility] Aug 24, 2023 09:00 AM AMBULATORY - REHAB MEDICIN E [place] [facility] [place] [facility] Aug 28, 2023 08:45 AM AMBULATORY - MEDICINE [place] C [facility] [place] [facility] Aug 29, 2023 10:43 AM AMBULATORY - MEDICINE [facility] Sep 22, 2023 07:30 AM AMBULATORY - REHAB MEDICIN E [place] [facility] [place] [facility] September 27, 2023 10:00 AM [facility] [place] [facility] October 18, 2023 03:30 PM AMBULATORY - REHAB MEDICIN E [place] [facility] [place] [facility] October 26, 2023 02:00 PM AMBULATORY - MEDICINE [facility] Nov 09, 2023 08:30 AM AMBULATORY - PSYCHIATRY [facility] Feb 09, 2024 08:30 AM AMBULATORY - PSYCHIATRY [facility] Social History: Smoking Status (Most current) [...] 2023 09:00 AM VA-TOBACCO USER SOME DAYS [facility] Tobacco Use History This section includes a history of the smoking, or tobacco-related health factors, that were collected on or before the date of the Encounter. The data comes from the [place] facility where the Encounter took place. Date/Time Smoking Status/Tobacco Use Comment F acility Jun 22, 2023 09:00 AM VA-TOBACCO USE 30 YEARS OR MORE [facility] Jun 22, 2023 09:00 AM VA-TOBACCO USE ADVICE [facility] Jun 22, 2023 09:00 AM VA-TOBACCO USE CONTACT LENS TECHNICIAN NO [facility] Jun 22, 2023 09:00 AM VA-TOBACCO USE MED NO [facility] Jun 22, 2023 09:00 AM VA-TOBACCO USER SOME DAYS [facility] Jan 13, 2022 02:00 PM VA-TOBACCO NEVER USED [facility] Jul 06, 2009 03:46 PM QUIT TOBACCO USE > 7 YEARS AGO [facility] Advance Directives: All historical and current [...] Jun 29, 2023 ADVANCE DIRECTIVE JAMES GALLO [facility] Sep 19, 2017 ADVANCE DIRECTIVE DINA MCGINNIS [facility] Encounter Notes: All associated encounter notes This section contains the clinical notes associated to the Encounter. Date/Time Encounter Note(s) Provider Source Aug 09, 2023 10:34 AM OPTOMETRY NOTE: LOCAL TITLE: OPTOMETRY NOTE STANDARD TITLE: OPTOMETRY NOTE DATE OF NOTE: AUG 09, 2023@10:34 ENTRY DATE: AUG 09, 2023@10:34:51 AUTHOR: TERRELL LLAMAS EXP COSIGNER: URGENCY: STATUS: COMPLETED OPT HT ordered patient a replacement pair of sunglasses as requested d/t lost pair ogged as delivered, but not delivered. Approved by provider. /janine/ TERRELL LLAMAS OPTOMETRY TECH Signed: 08/09/2023 10:45 TERRELL LLAMAS [facility]
--- OUTSIDE RECORDS SUMMARY | 2024-06-03 08:59 | XMS_ITS ---
Author Name [place] Address [address] [place] [address] Care Team Providers Care Home Assessment Nurse Name Role Phone ARIEL IJMENEZ Primary Care Provider Ismael patel Insurance Providers: [...] Parra's Name Patient's Relationship to Policy Parra [facility] Dec [facility], 2015 [id number] [phone] TANA [employer] PATIENT [facility] Dec 19, 2015 [id number] [employer]AK[employer] PATIENT [facility] May 29, 2012 [id number] [employer] PATIENT Selected Encounter This section includes the information on record at [place] for the Encounter. Date/Time Encounter Type Encounter Description Reason Provider Source Jul 25, 2023 01:00 PM HEARING AID EXAM BOTH EARS AUDIOLOGY ICD-10-CM H90.3 Sensorineural hearing loss, bilateral LUI RAYO Sammy Encounter Template Text not used by [place] Assessments - Encounter Diagnoses This section includes the primary and secondary diagnoses documented for the Encounter. Date/Time Primary/Secondary Diagnosis Diagnosis Name Provider Source Jul 25, 2023 01:54 PM PRIMARY Sensorineural hearing loss, bilateral LUI RAYO [facility] Jul 25, 2023 01:54 PM SECONDARY Encounter for fitting and adjustment of hearing aid LUI RAYO [facility] Plan of Treatment: Future Appointments (+ 6 months) and Future Tests (+/- 45 days) The Plan of Treatment section includes future care activities for the patient from all [place] [facility]. This section includes future appointments [...] 09:00 AM AMBULATORY - REHAB MEDICIN E [place] [facility] Aug 24, 2023 09:00 AM AMBULATORY - REHAB MEDICIN E [place] [facility] Aug 28, 2023 08:45 AM AMBULATORY - MEDICINE [place] C [place] [facility] Aug 29, 2023 10:43 AM AMBULATORY - MEDICINE [facility] Sep 22, 2023 07:30 AM AMBULATORY - REHAB MEDICIN E [place] [facility] [place] [facility] September 27, 2023 10:00 AM AMBULATORY - MEDICINE [place] C [place] [facility] October 18, 2023 03:30 PM AMBULATORY - REHAB MEDICIN E [place] [facility] October 26, 2023 02:00 PM [...] 2023 09:00 AM VA-TOBACCO USER SOME DAYS [facility] Tobacco Use History This section includes a history of the smoking, or tobacco-related health factors, that were collected on or before the date of the Encounter. The data comes from the [place] facility where the Encounter took place. Date/Time Smoking Status/Tobacco Use Comment F acility Jun 22, 2023 09:00 AM VA-TOBACCO USE 30 YEARS OR MORE [facility] Jun 22, 2023 09:00 AM VA-TOBACCO USE ADVICE [facility] Jun 22, 2023 09:00 AM VA-TOBACCO USE PARQUETRY LAYER NO [facility] Jun 22, 2023 09:00 AM VA-TOBACCO USE MED NO [facility] Jun 22, 2023 09:00 AM VA-TOBACCO USER SOME DAYS [facility] Jan 13, 2022 02:00 PM VA-TOBACCO NEVER USED [facility] Jul 06, 2009 03:46 PM QUIT TOBACCO USE > 7 YEARS AGO [facility] Advance Directives: All historical and current [...] Jun 29, 2023 ADVANCE DIRECTIVE JAMES GALLO [facility] Sep 19, 2017 ADVANCE DIRECTIVE DINA MCGINNIS [facility] Encounter Notes: All associated encounter notes This section contains the clinical notes associated to the Encounter. Date/Time Encounter Note(s) Provider Source Jul 25, 2023 07:42 AM AUDIOLOGY E & M NOTE: LOCAL TITLE: AUDIOLOGY CLINIC STANDARD TITLE: AUDIOLOGY E & M NOTE DATE OF NOTE: JUL 25, 2023@07:42 ENTRY DATE: JUL 25, 2023@07:42:24 AUTHOR: SIA RAYO COSIGNER: URGENCY: STATUS: COMPLETED AUDIOLOGY CLINIC Has ADDENDA Dx CODE: H90.3-Sensorineural Hearing Loss, Bilateral APPOINTMENT TYPE: Hearing Re-Evaluation and Hearing Aid Selection BACKGROUND/HISTORY: Hernandez was seen 07/25/23 for a hearing re-evaluation and hearing aid selection appointment, unaccompanied. He was fit with Phonak Audeo [id number] RICs on 01/19/21. This hearing aids were recently sent out for repair and were returned to today. He is considered eligible for new hearing aids through the [facility] due to lack of backup devices. His last hearing evaluation was on 01/14/21 and he does not believe his hearing has declined since then. He reports longstanding intermittent bilateral tinnitus and denies concerns of vertigo. ASSESMENT: Results of today's testing are as follows: Otoscopy was WNL bilaterally. Normal tympanograms obtained bilaterally. 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 SRT WORD RECOGNITION (Recorded [place] CNC 1/2 Word List) Right 35dBHL 100% @ 80dBHL/50dBm Left 30dBHL 96% @ 80dBHL/50dBm No significant changes were found when compared to the 01/14/21 audiological evaluation. HEARING AID PROGRAMMING: Hearing aids were connected to [employer] and user settings were restored. Acoustic parameters were updated as wears open small domes. Calibration completed. HEARING AID SELECTION: Different hearing aid options were discussed. He is interested in rechargeable technology similar to his previous hearing aids and does not have a pacemaker. He uses an iPhone, and will continue to utilize [employer] technology. Per request, a new TV connector will be ordered as he no longer has his old accessory. He would like to switch back to earmolds. Phonak Audeo [id number] RICs were selected and ordered in [facility]. Impressions were taken without incident and with 's verbal consent for cShells. EDUCATION/COUNSELING: The patient was counseled re: today's hearing test results. He demonstrated satisfactory understanding of the education and plan, and was given the opportunity to ask questions throughout today's visit. PLAN: 1. RTC on 08/18/23 at 9AM for 60 minute hearing aid fitting appointment. 2. Hearing re-evaluation in 3-5 years, or sooner if change in hearing occurs. * Patient Education Education provided on the following topics: Hearing test results Education provided to: P Response to Education: VU Menjivar Patient P Family F Significant Other SO Verbalizes Understanding VU Returns Demonstration RD Performs Independently PI Lacks Comprehension LC Refused Education RE Not Applicable NA * /janine/ SIA RAYO STAFF TRAMPOLINE TEAM COACH Signed: 07/25/2023 13:54 Receipt Acknowledged By: 07/25/2023 14:44 /janine/ SENG CORADO ADVANCED DIESEL CRANE OPERATOR 08/07/2023 ADDENDUM STATUS: COMPLETED Hearing aids received and certified, upcoming appointment scheduled on 08/18/2023. /janine/ LAUREL MOSS Audiology Health Engagement Director Signed: 08/07/2023 08:51 SIA RAYO [facility]
--- OUTSIDE RECORDS SUMMARY | 2024-06-03 08:59 | XMS_ITS | Encounter Summary ---
Author Name [facility] [place] Address [address] [place] [id number] Care Team Providers Care Manager House Name Role Phone ARIEL JIMENEZ Primary Care [...] Parra's Name Patient's Relationship to Policy Parra [facility] Dec 19, 2015 [id number] [id number] [employer] PATIENT [facility] Dec 19, 2015 [id number] [phone] [employer] [facility] May 29, 2012 [id number] [employer] PATIENT Selected Encounter This section includes the information on record at [place] for the Encounter. Date/Time Encounter Type Encounter Description Reason Provider Source Aug 09, 2023 08:30 AM OFFICE O/P EST MOD 30 MIN [facility] - IND ICD-10-CM F43.23 Adjustment disorder with mixed anxiety and depressed mood REALTIANNA Sammy Encounter Template Text not used by [place] Assessments - Encounter Diagnoses This section includes the primary and secondary diagnoses documented for the Encounter. Date/Time Primary/Secondary Diagnosis Diagnosis Name Provider Source Aug 09, 2023 10:52 AM PRIMARY Adjustment disorder with mixed anxiety and depressed mood TIANNA NOBLE [place] Plan of Treatment: Future Appointments (+ 6 months) and Future Tests (+/- 45 days) The Plan of Treatment section includes future care activities for the patient from all [place] treatmentfacilities. This section includes future appointments and future orders which are active, pending or scheduled. Future Appointments This section includes appointments that were scheduled to occur 6 months from the date of the Encounter, up to a maximum of 20 appointments. The data comes from all [place] treatment facilities. Appointment Date/Time Appointment Type Appointme nt Facility Name Aug 18, 2023 09:00 AM AMBULATORY - [place] [facility] [place] [facility] Aug 24, 2023 09:00 AM AMBULATORY - [place] MEDICIN E [place] [facility] [place] [facility] Aug 28, 2023 08:45 AM AMBULATORY - MEDICINE [facility] [place] [facility] Aug 29, 2023 10:43 AM AMBULATORY - MEDICINE [facility] Sep 22, 2023 07:30 AM AMBULATORY - [place] MEDICIN E [place] [facility] [place] [facility] September 27, 2023 10:00 AM AMBULATORY - MEDICINE [facility] [place] [facility] October 18, 2023 03:30 PM AMBULATORY - REHAB MEDICIN E [place] [facility] [place] [facility] October 26, 2023 02:00 PM AMBULATORY - MEDICINE [facility] Nov 09, 2023 08:30 AM AMBULATORY - PSYCHIATRY [facility] Feb 09, 2024 08:30 AM AMBULATORY - PSYCHIATRY [facility] Social History: Smoking Status (Most current) and Tobacco Use (All prior to encounter date) This section includes the most current, and the historical, smoking and tobacco- related health factors from the [place] facility where the Encounter took place. Current Smoking Status This section includes the most current smoking, or tobacco-related health factor, from the [place] facility where the Encounter took place. Date/Time Current Smoking Status Comment Rosendo rubio October 23, 2020 01:00 PM VA-TOBACCO NEVER USED [place] Tobacco Use History This section includes a history of the smoking, or tobacco-related health factors, that were collected on or before the date of the Encounter. The data comes from the [place] facility where the Encounter took place. 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 This section includes ALL of a patient's completed or amended [place] Advance and Rescinded Directives. The entries below indicate that a directive exists for the patient, but an actual copy is not included with this document. The data comes from all [facility]. Date Advance Directives Provider Source Jun 29, 2023 ADVANCE DIRECTIVE JAMES GALLO [facility] Sep 19, 2017 ADVANCE DIRECTIVE DINA MCGINNIS [facility] Encounter Notes: All associated encounter notes This section contains the clinical notes associated to the Encounter. Date/Time Encounter Note(s) Provider Source Aug 09, 2023 10:43 AM PSYCHIATRY NOTE: LOCAL TITLE: PSYCHIATRY NOTE STANDARD TITLE: PSYCHIATRY NOTE DATE OF NOTE: AUG 09, 2023@10:43 ENTRY DATE: AUG 09, 2023@10:43:49 AUTHOR: TIANNA NOBLE EXP COSIGNER: URGENCY: STATUS: COMPLETED Time spent: 21-30 minutes >16 mins supportive therapy. The presents today for follow-up. PATIENT REPORT: He presents with euthymic mood. He states, Thinsg seem to be going okay. He denies depressed mood. He is tolertaing bupropion well and denies side effects. He feels that medication is helpful. He feels that it is benfiting moodiness and irritability that he noticed at the last appointment. He is looking forward to [employer] [place] Day. He and are reasying their RV. They'll be driving to [place], [place] for the [employer] festival in August. Later this summer they plan on spending weeks in [place]. 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 He is now seeing a chiropractor and feels that it is of some benefit. was cooperative with questions asked. Cognitive exam was grossly intact. TP was logical and organized. TC was pertinent to topic. Speech was of regular rate, rhythm, volume, and tone. Mood was euthymic and affect congruent to theme. He brightened appropriately. He denied SI and HI. Insight and judgment were intact. 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 He has talked about the [employer] [place] in [place]. SUICIDE RISK ASSESSMENT: SUICIDE INQUIRY: IDEATION: Denies ideation. Do you currently have any homicidal ideation? No SUBSTANCE USE: alcohol--one to two drinks two to three times a week, on average PSYCH MEDICATION HISTORY: Cardinal took one antidepressant about 10 years ago--he cannot recall the name. It caused ED. Trazodone--next-day sedation sertraline--was helpful, but probably contributed to ED ACTIVE OUTPATIENT MEDICATIONS (including Supplies): Active Outpatient Medications (including Supplies): ACCU-CHEK GUIDE (GLUCOSE) TEST STRIP USE 1 STRIP TO TEST ACTIVE (S) BLOOD SUGARS ONCE DAILY ATORVASTATIN CALCIUM 80MG TAB TAKE ONE-HALF TABLET BY ACTIVE (S) MOUTH EVERY EVENING AFTER SUPPER FOR CHOLESTEROL BUPROPION HCL 150MG 12HR SA TAB TAKE ONE TABLET BY MOUTH HOLD EVERY MORNING FOR MOOD EMPAGLIFLOZIN 10MG TAB TAKE ONE TABLET BY MOUTH ONCE DAILY ACTIVE (S) FOR DIABETES HYDROCHLOROTHIAZIDE 12.5MG CAP TAKE ONE CAPSULE BY MOUTH ACTIVE DAILY LISINOPRIL 5MG TAB TAKE ONE TABLET BY MOUTH DAILY TO ACTIVE CONTROL BLOOD PRESSURE NEEDLE,PEN 31G,8MM USE 1 NEEDLE SUBCUTANEOUSLY ONCE DAILY ACTIVE FOR USE WITH INSULIN PENS SEMAGLUTIDE 1MG/0.75ML INJ PEN 3ML INJECT 1MG ACTIVE SUBCUTANEOUSLY ONCE A WEEK FOR DIABETES (REPLACES DULAGLUTIDE [TRULICITY]) SILDENAFIL CITRATE 100MG TAB TAKE ONE TABLET BY MOUTH ONCE ACTIVE DAILY NEEDED TAKE 1 HOUR PRIOR TO SEXUAL ACTIVITY Non-VA ALBUTEROL INHALER INHL,ORAL 2 PUFFS BY MOUTH EVERY ACTIVE 4 HOURS NEEDED Non-VA ASPIRIN 81MG EC TAB 81MG BY MOUTH DAILY ACTIVE Non-VA LORATADINE 10MG TAB 10MG BY MOUTH ONCE DAILY ACTIVE NEEDED ALLERGIES: Patient has answered NKA I discussed the findings and plan with the patient. I educated the patient about their mental health condition. Cardinal repeated back the plan and education. IMPRESSION (DSM-5): Adjustment disorder with depressed mood--improving PLAN: Continue bupropion SA 150mg QAM for mood. He is benefiting. This was switched from sertraline due to ED. He requestes 60 to 90 days of medication at a time due to travel. PCP prescribes sildenafil. At a previous visit he voiced concerns about memory. [...] with PCP for regular health maintenance. FOLLOW-UP: 12 weeks, sooner if needed REMINDERS: Medication Reconciliation: Outpatient: Has the patient been taking medications as documented in the EMLR? YES: The patient has been taking medications as documented in the EMLR. Essential Medication List for Review used to complete this medication reconciliation. INCLUDED IN THIS LIST: Alphabetical list of active outpatient prescriptions dispensed from this [facility] (local) and dispensed from another [place] or [facility] facility (remote) as well as [...] provider. /janine/ TIANNA NOBLE DO Psychiatrist Signed: 08/09/2023 10:52 TIANNA NOBLE
--- OUTSIDE RECORDS SUMMARY | 2024-06-03 08:59 | XMS_ITS | Encounter Summary ---
Author Name [facility] [place] Address [address] [place] [address] Care Team Providers Care Capsule Inspector Name Role Phone ARIEL JIMENEZ Primary [...] Parra's Name Patient's Relationship to Policy Parra [facility] Dec 19, 2015 [id number] [employer] PATIENT [facility] Dec 19, 2015 [id number] [employer] PATIENT [facility] May 29, 2012 [id number] [employer] PATIENT Selected Encounter This section includes the information on record at [place] for the Encounter. Date/Time Encounter Type Encounter Description Reason Pro vider Source Jul 03, 2023 08:05 AM Outpatient Encounter PRIMARY CARE/MEDICINE [facility] Encounter Template Text not used by [place] Plan of Treatment: Future Appointments (+ 6 months) and Future Tests (+/- 45 days) The Plan of Treatment section includes future care activities for the patient [facility] [place] [facility] This section includes future appointments [...] REHAB MEDICIN E [facility] [place] [facility] Aug 09, 2023 08:30 AM AMBULATORY - PSYCHIATRY [facility] Aug 18, 2023 09:00 AM AMBULATORY - REHAB MEDICIN E [facility] [place] [facility] Aug 24, 2023 09:00 AM AMBULATORY - REHAB MEDICIN E [facility] [place] [facility] Aug 28, 2023 08:45 AM AMBULATORY - MEDICINE [facility] [place] [facility] Aug 29, 2023 10:43 AM [facility]ORY [facility] Sep 22, 2023 07:30 AM AMBULATORY - REHAB MEDICIN E [facility] [place] [facility] September 27, 2023 10:00 AM AMBULATORY - MEDICINE [facility] [place] [facility] October 18, 2023 03:30 PM AMBULATORY - REHAB MEDICIN E [facility] [place] [facility] October 26, 2023 02:00 PM [...] Range Comment Jun 22, 2023 10:28 AM [facility] Specimen Type: SERUM No comment entered. Ordering Provider: ARIEL JIMENEZ Report Released Date/Time: Jun 22, 2023 09:13 AM Reporting Lab: [address] [address] Performing Lab: [address] [address] PROTEIN,TOTAL 7.2 g/dL 6.0-8.3 ALBUMIN 4.6 g/dL 3.5-5.0 ALKALINE PHOSPHATASE 40 U/L 40-150 AST 26 U/L 5-34 ALT 37 U/L BILIRUBIN, TOTAL 0.8 mg/dL 0.2-1.2 Jun 22, 2023 10:28 AM [facility] CBC Specimen Type: BLOOD No comment entered. Ordering Provider: ARIEL JIMENEZ Report Released Date/Time: Jun 22, 2023 09:13 AM Reporting Lab: [address] [address] Performing Lab: [address] [address] WBC 6.16 10*3/uL 4.50-11.00 RBC 5.11 10*6/uL 4.23-5.66 HGB 15.9 g/dL 12.8-17 HCT 47.1 39.2-50.4 MCV 92.2 fL 82-99 MCHC 33.8 g/dL 30.8-35.1 PLT 193 10*3/uL 140-360 RDW-CV 12.4 12.0-16.0 MCH 31.1 pg 26.2-32.6 Jun 22, 2023 10:28 AM [facility] HEMOGLOBIN A1C PANEL Specimen Type: BLOOD [...] Jun 22, 2023 09:13 AM Reporting Lab: [address] [place] [place] [address] Performing Lab: [facility] [address] [facility] [address] HEMOGLOBIN A1C 5.7 H 4.0-5.6 Jun 22, 2023 10:28 AM [facility] BASIC METABOLIC PANEL (fasting) Specimen Type: SERUM No comment entered. Ordering Provider: ARIEL JIMENEZ Report Released Date/Time: Jun 22, 2023 09:13 AM Reporting Lab: [facility] [address] [facility] [address] Performing Lab: [facility] [address] UREA NITROGEN 23 mg/dL 7-25 GLUCOSE 123 mg/dL H 65-100 SODIUM 139 mmol/L 135-145 POTASSIUM 4.5 mmol/L 3.5-5.0 CHLORIDE 102 mmol/L 100-110 CO2 29 meq/L 20-30 CREATININE, Serum 0.81 mg/dL 0.50-1.40 eGFR(CKD-EPI 2020) >90 mL/min >60 Jun 22, 2023 10:28 AM [facility] LIPID PANEL FASTING Specimen Type: SERUM No comment entered. Ordering Provider: ARIEL JIMENEZ Report Released Date/Time: Jun 22, 2023 09:13 AM Reporting Lab: [facility] [address] [facility] [address] Performing Lab: [facility] [address] [facility] [address] CHOLESTEROL 144 mg/dL TRIGLYCERIDE 48 mg/dL 0-150 LDL calculated 70 mg/dL 0-129 CHOL/HDL 2.3 HDL CHOLESTEROL 64 mg/dL H 40-60 Jun 22, 2023 10:28 AM [facility] PSA Specimen Type: SERUM No comment entered. Ordering Provider: ARIEL JIMENEZ Report Released Date/Time: Jun 22, 2023 09:13 AM Reporting Lab: [facility] [address] Performing Lab: [facility] [address] [address] PSA 1.78 ng/mL 0.00-4.00 Social History: Smoking [...] 2023 09:00 AM VA-TOBACCO USER SOME DAYS [facility] Tobacco Use History This section includes a history of the smoking, or tobacco-related health factors, that were collected on or before the date of the Encounter. The data comes from the [place] facility where the Encounter took place. 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 [facility] Jun 22, 2023 09:00 AM VA-TOBACCO USE MED NO [facility] Jun 22, 2023 09:00 AM VA-TOBACCO USER SOME DAYS [facility] Jan 13, 2022 02:00 PM VA-TOBACCO NEVER USED [facility] Jul 06, 2009 03:46 PM QUIT TOBACCO USE > 7 YEARS AGO [facility] Advance Directives: All historical and current [...] Jun 29, 2023 ADVANCE DIRECTIVE JAMES GALLO [facility] Sep 19, 2017 ADVANCE DIRECTIVE DINA MCGINNIS [facility] Encounter Notes: All associated encounter notes This section contains the clinical notes associated to the Encounter. Date/Time Encounter Note(s) Provider Source Jul 03, 2023 08:05 AM ADMINISTRATIVE NOTE: LOCAL TITLE: FAX/MAIL RECEIVED STANDARD TITLE: ADMINISTRATIVE NOTE DATE OF NOTE: JUL 03, 2023@08:05 ENTRY DATE: JUL 03, 2023@08:05:58 AUTHOR: HERMILA DUDLEY EXP COSIGNER: URGENCY: STATUS: COMPLETED Document Received On: Jun Document Type: Other: DISABLED PARKING PLACARD Date of Service: Jun Facility and or Provider: BROUGHT IN Contact Information: ONCE COMPLETED, WOULD LIKE MAILED IN [place] PROVIDED PCP of Record: SAMANTHA DIAMOND Next visit with PCP: 08/09/2023 08:30 SPOPC/MHC/LARROW 09/27/2023 10:00 CWM/NO/PACT EIGHT 02/19/2024 08:30 NHM/OPTOMETRY/[facility] Primary Care May keep copies of this document for up to 14 days and send the original for scanning. /janine/ HERMILA DUDLEY AMSA Signed: 07/03/2023 08:06 HERMILA DUDLEY [facility]
--- OUTSIDE RECORDS SUMMARY | 2024-06-03 08:59 | XMS_ITS | Encounter Summary ---
Author Name [facility] [place] [facility] [place] Address [address] [place] [address] Care Team Providers Care Deck Steward Name Role Phone ARIEL JIMENEZ Primary Care [...] Policy Parra [facility] Dec 19, 2015 [id number] [phone] [id number] [employer] PATIENT [facility] Dec 19, 2015 [id number] [phone] [id number] [employer] PATIENT [facility] May 29, 2012 [id number] [employer] PATIENT Selected Encounter This section includes the information on record at CT for the Encounter. Date/Time Encounter Type Encounter Description Reason Provider Source Aug 18, 2023 09:00 AM HEARING SERVICE AUDIOLOGY ICD-10-CM Z46.1 Encounter for fitting and adjustment of hearing aid RADHAMES HORNE E Encounter Template Text not used by CT Assessments - Encounter Diagnoses This section includes the primary and secondary diagnoses documented for the Encounter. Date/Time Primary/Secondary Diagnosis Diagnosis Name Provider Source Aug 18, 2023 09:31 AM PRIMARY Encounter for fitting and adjustment of hearing aid [facility] Aug 18, 2023 09:31 AM SECONDARY Sensorineural hearing loss, bilateral RADHAMES HORNE [facility] Plan of Treatment: Future Appointments (+ 6 months) and Future Tests (+/- 45 days) The Plan of Treatment section includes future care activities for the [facility] This section includes future appointments and future orders which are active, pending or scheduled. Future Appointments This section includes appointments that were scheduled to occur 6 months from the date of the Encounter, up to a maximum of 20 appointments. The data comes from all [place] treatment facilities. Appointment Date/Time Appointment Type Appointme nt Facility Name Aug 24, 2023 09:00 AM AMBULATORY - REHAB MEDICIN E [facility] [place] [facility] Aug 28, 2023 08:45 AM AMBULATORY - MEDICINE [facility] [place] [facility] Aug 29, 2023 10:43 AM AMBULATORY - MEDICINE [facility] Sep 22, 2023 07:30 AM AMBULATORY - [facility] [place] [facility] September 27, 2023 10:00 AM AMBULATORY - MEDICINE [facility] [place] [facility] October 18, 2023 03:30 PM AMBULATORY - REHAB MEDICIN E [facility] [place] [facility] October 26, 2023 02:00 PM [facility] Nov 09, 2023 08:30 AM AMBULATORY - PSYCHIATRY [facility] Feb 09, 2024 08:30 AM AMBULATORY - PSYCHIATRY [facility] Feb 12, 2024 01:30 PM AMBULATORY - NONE [facility] Social History: Smoking Status (Most current) and Tobacco Use (All prior to encounter date) This section includes the most current, and the historical, smoking and tobacco- related health factors from the [place] facility where the Encounter took place. Current Smoking Status This section includes the most current smoking, or tobacco-related health factor, from the [place] facility where the Encounter took place. Date/Time Current Smoking Status Comment Facil ity Jun 22, 2023 09:00 AM VA-TOBACCO DOESNT USE WI 30 MIN [facility] Tobacco Use History This section includes a history of the smoking, or tobacco-related health factors, that were collected on or before the date of the Encounter. The data comes from the [place] facility where the Encounter took place. 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 [facility] Jun 22, 2023 09:00 AM VA-TOBACCO USE MED NO [facility] Jun 22, 2023 09:00 AM VA-TOBACCO USER SOME DAYS [facility] Jan 13, 2022 02:00 PM VA-TOBACCO NEVER USED [facility] Jul 06, 2009 03:46 PM QUIT TOBACCO USE > 7 YEARS AGO [facility] Advance Directives: All historical and current Section Date Range: From patient's date of to the date document was created. This section includes ALL of a patient's completed or amended CT Advance and Rescinded Directives. The entries below indicate that a directive exists for the patient, but an actual copy is not included with this document. The data comes from all [place] facilities. Date Advance Directives Provider Source Jun 29, 2023 ADVANCE DIRECTIVE JAMES GALLO [facility] Sep 19, 2017 ADVANCE DIRECTIVE DINA MCGINNIS [facility] Encounter Notes: All associated encounter notes This section contains the clinical notes associated to the Encounter. Date/Time Encounter Note(s) Provider Source Aug 18, 2023 08:44 AM AUDIOLOGY E & M NO TE: LOCAL TITLE: AUDIOLOGY CLINIC STANDARD TITLE: AUDIOLOGY E & M NOTE DATE OF NOTE: AUG 18, 2023@08:44 ENTRY DATE: AUG 18, 2023@08:45 AUTHOR: RADHAMES HORNE COSIGNER: URGENCY: STATUS: COMPLETED AUDIOLOGY CLINIC Has ADDENDA Diagnosis: bilateral sensorineural hearing loss Hearing Aid Fitting: SUBJECTIVE (S): The [place] was seen for hearing aid fitting and issuance. S/He had previously been evaluated and found to exhibit significant hearing loss for which amplification was recommended. How does the patient/client best learn? verbal instruction, demonstration Does the patient/client have any cultural and gnosticism beliefs, emotional barriers, physical or cognitive limitations, and communication barriers which may impact his/her ability to learn? no Desire and motivation to learn? Good OBJECTIVE (O): Physical fit of earmolds/receivers and domes/hearing aids was good. [place] verified comfort. Verification of an appropriate acoustic response was obtained using Real Ear measurements (speech mapping) and NAL-NL2 targets. The reported good subjective benefit as well. Feedback science manager was run. Hearing aids were found to be meeting targets adequately and MPO was not exceeding estimated UCL. Settings stored in MARC[facility]. ASSESSMENT (A): The following device(s) was/were issued: Make: Phonak Model: [employer]o L90-RL RICs and TV streamer Serial Numbers:[id number] W Battery size: RECHARGEABLE Trial Period ends: 01-27-24 Domes/wax guards, etc.: cerustop Earmold Information: cshell Information Architect size/power: P2 Program Settings (VC, Programs, Buttons): VCs eanlbed, linked Fitting Formula: NAL-NL2 Remote programming: capable Counseling was completed today throughout todays appointment using a standardized curriculum that includes but is not limited to; realistic expectations with amplification in adverse listening environments, acclimatization to own voice and environmental sounds (following real-ear measurements), the importance of consistent use of amplification, proper insertion/removal, care and maintenance (including wax guards/domes if applicable), signal and alerts of devices, and charging/batteries. The was provided the opportunity to practice in office and reports confidence/understanding in all items reviewed. was given written reference materials today. The [place] was informed of and agreed to [place] policy on hearing aid issuance: Users are responsible for the maintenance and security of their devices. Determination of need to replace a hearing aid is made by the [place] airline operations agent. Hearing aids will not be replaced in cases of neglect, abuse, or excessive loss. Items issued are for personal use only. Prognosis for successful hearing aid use is good. PLAN (P): 1. Contact clinic with any problems/concerns. 2. The International Outcome Inventory-Hearing Aids (IOI-LOPES) will be mailed to the in four weeks. He/she was asked to mail back to clinic after completion. Patient Education Education provided on the following topics: hearing aid management Education provided to: P Response to Education: KAYLENE MELGAR, PI Menjivar Patient P Family F Significant Other SO Verbalizes Understanding VU Returns Demonstration RD Performs Independently PI Lacks Comprehension LC Refused Education RE Not Applicable NA /janine/ Justa HALL, [facility]-A STAFF BUDGET AND POLICY ANALYST Signed: 08/18/2023 09:31 09/28/2023 ADDENDUM STATUS: COMPLETED returned IOI-LOPES Outcome Measure to the clinic via mail with an overall score of 28 Based on this score: i. No follow-up call is indicated _XX_ ii. Follow-up call is indicated and fitting clinician will be notified __ /janine/ LAUREL MOSS Audiology Health Link Trainer Signed: 09/28/2023 10:[address] [facility]
--- OUTSIDE RECORDS SUMMARY | 2024-06-03 08:59 | XMS_ITS | Encounter Summary ---
Author Name [facility] [facility] [place] Address [address] [place] [address] Care Team Providers Care Finishing Department Supervisor Name Role Phone ARIEL INFANTE Primary Care [...] Parra's Name Patient's Relationship to Policy Parra [facility] Dec 19, 2015 [id number] [phone] [id number] [phone] [employer] PATIENT [facility] Dec 19, 2015 [id number] [employer]AK[employer] PATIENT [facility] May 29, 2012 [id number] [employer] PATIENT Selected Encounter This section includes the information on record at [place] for the Encounter. Date/Time Encounter Type Encounter Description Reason Provider Source Jul 24, 2023 09:16 AM Outpatient Encounter PRIMARY CARE/MEDICINE ROULA GUALLPA Encounter Template Text not used by [place] Plan of Treatment: Future Appointments (+ 6 months) and Future Tests (+/- 45 days) The Plan of Treatment section includes future care activities for the [facility] [place] [facility] This section includes future appointments and future orders which are active, pending or scheduled. Future Appointments This section includes appointments that were scheduled to occur 6 months from the date of the Encounter, up to a maximum of 20 appointments. The data comes from all [place] treatment facilities. Appointment Date/Time Appointment Type Appointme nt Facility Name Jul 25, 2023 01:00 PM AMBULAT[place] [facility] [place] [facility] Aug 09, 2023 08:30 AM AMBULATORY - PSYCHIATRY [facility] Aug 18, 2023 09:00 AM AMBULATORY [place] [facility] [place] [facility] Aug 24, 2023 09:00 AM AMBULATORY [place] [facility] [place] [facility] Aug 28, 2023 08:45 AM [facility]UL[facility] [place] [facility] Aug 29, 2023 10:43 AM AMBULATORY - MEDICINE [facility] Sep 22, 2023 07:30 AM AMBULATORY - [place]IC[place] [facility] [place] [facility] September 27, 2023 10:00 AM AMBULATORY - MEDICINE [place] [facility] [place] [facility] October 18, 2023 03:30 PM AMBULATORY - [place] [facility] [place] [facility] October 26, 2023 02:00 PM AMBULATORY - MEDICINE [facility] Nov 09, 2023 08:30 AM AMBULATORY - PSYCHIATRY [facility] Social History: Smoking Status (Most current) and Tobacco Use (All prior to encounter date) This section includes the most current, and the historical, smoking and tobacco- related health factors from the [place] facility where the Encounter took place. Current Smoking Status This section includes the most current smoking, or tobacco-related health factor, from the [place] facility where the Encounter took place. Date/Time Current Smoking Status Lesvia rubio Jun 22, 2023 09:00 AM VA-TOBACCO USE 30 YEARS OR MORE [facility] Tobacco Use History This section includes a history of the smoking, or tobacco-related health factors, that were collected on or before the date of the Encounter. The data comes from the [place] facility where the Encounter took place. Date/Time Smoking Status/Tobacco Use Comment F acility Jun 22, 2023 09:00 AM VA-TOBACCO USE 30 YEARS OR MORE [facility] Jun 22, 2023 09:00 AM VA-TOBACCO USE ADVICE [facility] Jun 22, 2023 09:00 AM VA-TOBACCO USE KNOWLEDGE ENGINEER NO [facility] Jun 22, 2023 09:00 AM VA-TOBACCO USE MED NO [facility] Jun 22, 2023 09:00 AM VA-TOBACCO USER SOME DAYS [facility] Jan 13, 2022 02:00 PM VA-TOBACCO NEVER USED [facility] Jul 06, 2009 03:46 PM QUIT TOBACCO USE > 7 YEARS AGO [facility] Advance Directives: All historical and current Section Date Range: From patient's date of to the date document was created. This section includes ALL of a patient's completed or amended [place] Advance and Rescinded Directives. The entries below indicate that a directive exists for the patient, but an actual copy is not included with this document. The data comes from all [place] facilities. Date Advance Directives Provider Source Jun 29, 2023 ADVANCE DIRECTIVE JAMES GALLO [facility] Sep 19, 2017 ADVANCE DIRECTIVE DINA MCGINNIS [facility] Encounter Notes: All associated encounter notes This section contains the clinical notes associated to the Encounter. Date/Time Encounter Note(s) Provider Source Aug 08, 2023 08:01 AM PRIMARY CARE SECTotsy E MESSAGING: LOCAL TITLE: PRIMARY CARE SECURE MESSAGING STANDARD TITLE: PRIMARY CARE SECURE MESSAGING DATE OF NOTE: AUG 08, 2023@08:01 ENTRY DATE: AUG 08, 2023@09:01:23 AUTHOR: ROULA GUALLPA COSIGNER: URGENCY: STATUS: COMPLETED ------Original Message ------- Sent: 08/08/2023 06:54 AM ET From: LAKESHA SQUIRES To: Alex INFANTE _ PRIMARY CARE_[facility] Subject: General:Ortho referral Good Morning Jose J, If I may, can I please ask that someone look into my referral to [facility], for a followup/transfer of care for my Inspire Sleep device? I was called by someone at the clinic in [place], and was told that a throwaway sleep study device was enroute, some time ago and nothing as of today. Thank you, Vijay ------Original Message ------- Sent: 08/08/2023 09:01 AM ET From: ROULA GUALLPA To: LAKESHA SQUIRES Subject: General:Ortho referral Good Morning to you... Issues of this sort should go to the Provider who is over seeing the issue in [place]: Here is the consult for [place] and the director of pupil personnel program: [facility] COMPLETE/UPDATE 07/11/23 11:45 EDUARD SORIANO,JUDSON SORIANO,JUDSON WYNN Remote JESSICA DOCUMENT #[id number] from [facility] I sent a request to Judson to reach out to you today as he can understand the issues you have with the device that they are sending to you Current PC Provider: ERVIN DIAMOND Current PC Team: MARY DE LEON 5 Current Pat. 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 Date: Jul 13, 2023 DST ID: Orderable Item: SLEEP DISORDERS CLINIC [facility] Consult: Consult Request Provisional Diagnosis: sleep apnea Reason For Request: [facility] - as [facility] get [facility] during [facility]. now needs follow-up and [facility] to do through [facility]. has a sensor device which is no longer working very well. Inter-facility Information --- Remote Facility: [facility] Ordering Provider: ARIEL INFANTE Remote Consult # [id number] Remote Service name: SLEEP DISORDERS CLINIC (NEW) OUTPT Role: Requesting facility Status: COMPLETE Last Action: COMPLETE/UPDATE Facility Activity Date/Time/Zone Responsible Person Entered By ------- CPRS RELEASED ORDER 06/29/23 14:04 ARIEL INFANTE TINA [facility] ADDED COMMENT 06/29/23 14:08 JUDSON TRUJILLO MARC BRIAN CCE-CC Eligibility Status: NO ELIGIBILITY FOUND CSC-Consult stop code: 349 CSN-Clinical service: Sleep Medicine FISHING LURE ASSEMBLER-Consult service type: Specialty Care CCE BENCH MECHANIC-Requested care is clinically appropriate: Yes CRM-Clinical Review Method: Provider Review PWA-Prework acceptable for consult triage: Yes CVE-Complete via eConsult: No AC-Accept consult, schedule routine appointment. CAM-Clinically appropriate modality: Video to Home Telehealth (VVC) CAM-Clinically appropriate modality: Telephone appointment ANDREW-Clinically appropriate location for this consult: Local [place] Facility ME-May cancel if fails to respond to mandated scheduling effort RCT-Referral Coordination Finishing Department Supervisor GUI-[facility] User Role: Provider COM-Additional Comments: tel or vvc any sleep provider COM [facility] RECEIVED 06/30/23 08:27 SUSU BURKS [place] CV3-COVID-19 Priority 3: Schedule per local department policy RCT-Referral Coordination Finishing Department Supervisor ALEX User Role: RN [facility] SCHEDULED 07/03/23 12:04 RANDALL BENITEZ JULIE ANN NEW PHONE SLEEP DIS SLATE Consult Appt. on 07/11/23 @ 13:30 PID 07/13/23 CONSULT VERIFIED BY PT [facility] COMPLETE/UPDATE 07/11/23 11:45 JUDSON TRUJILLO MARC BRIAN Remote JESSICA DOCUMENT #[id number] from [facility] Note: TIME ZONE is local if not indicated Inter-facility Results: Results are available via Display Results action. No local JESSICA results or Medicine results available for this consult END Jose J Guallpa MSN Ed., BSN, RN [phone] Ext [phone] /es/ ROULA GUALLPA MSN Ed., BSN [employer] COMMISSION DIRECTOR NURSE Signed: 08/08/2023 09:01 Receipt Acknowledged By: 08/08/2023 10:43 /es/ ARIEL INFANTE D.O. PHYSICIAN ROULA GUALLPA [place] [facility] Jul 26, 2023 08:31 AM PRIMARY CARE SECUR E MESSAGING: LOCAL TITLE: PRIMARY CARE SECURE MESSAGING STANDARD TITLE: PRIMARY CARE SECURE MESSAGING DATE OF NOTE: JUL 26, 2023@08:31 ENTRY DATE: JUL 26, 2023@08:31:41 AUTHOR: ROULA GUALLPA EXP COSIGNER: URGENCY: STATUS: COMPLETED ------Original Message ------- Sent: 07/25/2023 03:04 PM ET From: LAKESHA SQUIRES To: Alex INFANTE _ PRIMARY CARE_[facility] Subject: General:Ortho referral Good Afternoon Jose J, Thank you for the quick response. I do have my appt with the good doctor, noted on my calendar. I will be there for sure. I'm hoping you, like the many others I saw today outside in [facility], were able to enjoy his beautiful day. (Hearing Appt) Vijay Mayorga ------Original Message ------- Sent: 07/26/2023 08:31 AM ET From: ROULA GUALLPA To: LAKESHA SQUIRES Subject: General:Ortho referral Thank-you, and Take care Jose J Guallpa MSN Ed., BSN, RN [phone] Ext [phone] /es/ ROULA GUALLPA MSN Ed., BSN AERONAUTICS COMMISSION DIRECTOR NURSE Signed: 07/26/2023 08:31 ROULA GUALLPA [place] [facility] [place] [facility] Jul 25, 2023 04:46 PM ADDENDUM: LOCAL TITLE: Addendum STANDARD TITLE: ADDENDUM DATE OF NOTE: JUL 25, 2023@16:46:39 ENTRY DATE: JUL 25, 2023@16:46:40 AUTHOR: ROULA GUALLPA EXP COSIGNER: URGENCY: STATUS: COMPLETED F: Telephone call D: Charlie says that his ex- works at [employer] [facility] and would like the orthopedic consult to be ordered for NEOS at [facility] if possible. /janine/ ROULA GUALLPA MSN Ed., BSN AERONAUTICS COMMISSION DIRECTOR NURSE Signed: 07/25/2023 16:47 Receipt Acknowledged By: 07/26/2023 08:18 /es/ ARIEL INFANTE D.O. PHYSICIAN 07/26/2023 08:16 /es/ DIANA KEMP [facility] DEWAYNEN RN FAHAD ====== --- Original Document --- 07/24/23 PRIMARY CARE SECURE MESSAGING: ------Original Message ------- Sent: 07/24/2023 07:07 AM ET From: LAKESHA SQUIRES To: Alex INFANTE _ PRIMARY CARE_[facility] Subject: General:Ortho referral Good morning Dr. Infante, Keeping in mind that I have a follow up visit with you in the near future, I'd still like to follow up with an orthopedic visit, outside the [place], if possible, to address the serious pain in my right, and left knees. My and I travel throughout the summer, camping across the and I'm really hoping for some relief to make it possible to do some hiking and biking, to help with my fitness. I say outside the [place], knowing that appointments and follow-ups are usually way out on the calendar. I am going to a chiropractor today and try to alleviate some of the back pain that comes from my uneven shuffling gate. However, I know that is not the total answer. Please let me know if a referral is possible. Thank you and have a great day. Sincerely, Vijay ------Original Message ------- Sent: 07/24/2023 09:16 AM ET From: ROULA GUALLPA To: LAKESHA SQUIRES Subject: General:Ortho referral [facility] It is more than possible. I will forward your request Dr. Infante to consider. Just a reminder that you have an appointment with Dr. Infante on September 27, 2023 at 10:00 A.M. Jose J Guallpa MSN Ed., BSN, RN [phone] Ext [phone] /janine/ ROULA GUALLPA MSN Ed., BSN AERONAUTICS COMMISSION DIRECTOR NURSE Signed: 07/24/2023 09:16 Receipt Acknowledged By: 07/24/2023 09:54 /es/ ARIEL INFANTE D.O. PHYSICIAN 07/24/2023 ADDENDUM STATUS: COMPLETED I have made referral to [facility] Orthopedics. /janine/ ARIEL INFANTE D.O. PHYSICIAN Signed: 07/24/2023 09:52 Receipt Acknowledged By: 07/25/2023 16:42 /janine/ ROULA GUALLPA MSN Ed., BSN AERONAUTICS COMMISSION DIRECTOR NURSE ROULA GUALLPA [place] [facility] [place] [facility] Jul 24, 2023 09:52 AM ADDENDUM: LOCAL TITLE: Addendum STANDARD TITLE: ADDENDUM DATE OF NOTE: JUL 24, 2023@09:52:21 ENTRY DATE: JUL 24, 2023@09:52:22 AUTHOR: ARIEL INFANTE COSIGNER: URGENCY: STATUS: COMPLETED I have made referral to [facility] Orthopedics. /janine/ ARIEL INFANTE D.O. PHYSICIAN Signed: 07/24/2023 09:52 Receipt Acknowledged By: 07/25/2023 16:42 /janine/ ROULA GUALLPA MSN Ed., BSN AERONAUTICS COMMISSION DIRECTOR NURSE ====== --- Original Document --- 07/24/23 PRIMARY CARE SECURE MESSAGING: ------Original Message ------- Sent: 07/24/2023 07:07 AM ET From: LAKESHA SQUIRES To: Alex INFANTE _ PRIMARY CARE_[facility] Subject: General:Ortho referral Good morning Dr. Infante, Keeping in mind that I have a follow up visit with you in the near future, I'd still like to follow up with an [place], to address the serious pain in my right, and left knees. My and I travel throughout the summer, camping across the and I'm really hoping for some relief to make it possible to do some hiking and biking, to help with my fitness. [place] outside the [place], knowing that appointments and follow-ups are usually way out on the calendar. I am going to a chiropractor today and try to alleviate some of the back pain that comes from my uneven shuffling gate. However, I know that is not the total answer. Please let me know if a referral is possible. Thank you and have a great day. Sincerely, Vijay ------Original Message ------- Sent: 07/24/2023 09:16 AM ET From: ROULA GUALLPA To: LAKESHA SQUIRES Subject: General:Ortho referral [facility] It is more than possible. I will forward your request Dr. Infante to consider. Just a reminder that you have an appointment with Dr. Infante on September 27, 2023 at 10:00 A.M. Jose J Guallpa MSN Ed., BSN, RN [phone] Ext [phone] /es/ ROULA GUALLPA MSN Ed., BSN AERONAUTICS COMMISSION DIRECTOR NURSE Signed: 07/24/2023 09:16 Receipt Acknowledged By: 07/24/2023 09:54 /es/ ARIEL INFANTE D.O. PHYSICIAN ARIEL INFANTE [facility] [place] [facility] Jul 24, 2023 09:16 AM PRIMARY CARE SECUR E MESSAGING: LOCAL TITLE: PRIMARY CARE SECURE MESSAGING STANDARD TITLE: PRIMARY CARE SECURE MESSAGING DATE OF NOTE: JUL 24, 2023@09:16 ENTRY DATE: JUL 24, 2023@09:16:31 AUTHOR: ROULA GUALLPA EXP COSIGNER: URGENCY: STATUS: COMPLETED PRIMARY CARE SECURE MESSAGING Has ADDENDA ------Original Message ------- Sent: 07/24/2023 07:07 AM ET From: LAKESHA SQUIRES To: Alex INFANTE _ PRIMARY CARE_[facility] Subject: General:Ortho referral Good morning Dr. Infante, Keeping in mind that I have a follow up visit with you in the near future, I'd still like to follow up with an [place], to address the serious pain in my right, and left knees. My and I travel throughout the summer, camping across the and I'm really hoping for some relief to make it possible to do some hiking and biking, to help with my fitness. [place] say outside the [place], knowing that appointments and follow-ups are usually way out on the calendar. I am going to a chiropractor today and try to alleviate some of the back pain that comes from my uneven shuffling gate. However, I know that is not the total answer. Please let me know if a referral is possible. Thank you and have a great day. Sincerely, Vijay ------Original Message ------- Sent: 07/24/2023 09:16 AM ET From: ROULA GUALLPA To: LAKESHA SQUIRES Subject: General:Ortho referral [facility] It is more than possible. I will forward your request Dr. Infante to consider. Just a reminder that you have an appointment with Dr. Infante on September 27, 2023 at 10:00 A.M. Jose J Guallpa MSN Ed., BSN, RN [phone] Ext [phone] /janine/ ROULA GUALLPA MSN Ed., BSN AERONAUTICS COMMISSION DIRECTOR NURSE Signed: 07/24/2023 09:16 Receipt Acknowledged By: 07/24/2023 09:54 /janine/ ARIEL INFANTE D.O. PHYSICIAN 07/24/2023 ADDENDUM STATUS: COMPLETED I have made referral to [facility] Orthopedics. /janine/ ARIEL INFANTE D.O. PHYSICIAN Signed: 07/24/2023 09:52 Receipt Acknowledged By: 07/25/2023 16:42 /jeff GUALLPA MSN Ed., BSN AERONAUTICS COMMISSION DIRECTOR NURSE 07/25/2023 ADDENDUM STATUS: COMPLETED F: Telephone call D: Charlie says that his ex- works at [employer] and would like the orthopedic consult to be ordered for NEOS at [facility] if possible. /jeff GUALLPA MSN Ed., BSN AERONAUTICS COMMISSION DIRECTOR NURSE Signed: 07/25/2023 16:47 Receipt Acknowledged By: * AWAITING SIGNATURE * ARIEL INFANTE * AWAITING SIGNATURE * DIANA KEMP [facility] [place] [facility]
--- OUTSIDE RECORDS SUMMARY | 2024-06-03 08:59 | XMS_ITS ---
Author Name [facility] [place] Address [address] [place] [address] Care Team Providers Care Plastics Engineering Teacher Name Role Phone ARIEL INFANTE Primary Care [...] [facility] Dec 19, 2015 [id number] [id number] [employer] PATIENT [facility] Dec 19, 2015 [id number] [phone] [employer]AKES[employer] PATIENT [facility] May 29, 2012 [id number] [employer] PATIENT Selected Encounter This section includes the information on record at [place] for the Encounter. Date/Time Encounter Type Encounter Description Reason Provider Source Aug 21, 2023 01:05 PM Outpatient Encounter PRIMARY CARE/MEDICINE ROULA GUALLPA Encounter Template Text not used by [place] Plan of Treatment: Future Appointments (+ 6 months) and Future Tests (+/- 45 days) The Plan of Treatment section includes future care activities for the [facility] [place] [facility] This section includes future appointments and [...] REHAB MEDICIN E [place] [facility] [facility] Aug 28, 2023 08:45 AM AMBULATORY - MEDICINE [place] [facility] [place] [facility] Aug 29, 2023 10:43 AM AMBULATORY - MEDICINE [facility] Sep 22, 2023 07:30 AM AMBULATORY - REHAB MEDICIN E [place] [facility] [place] [facility] September 27, 2023 10:00 AM AMBULATORY - MEDICINE [place] [facility] [place] [facility] October 18, 2023 03:30 PM AMBULATORY - REHAB MEDICIN E [place] [facility] [place] [facility] October 26, 2023 02:00 PM AMBULATORY - MEDICINE [facility] Nov 09, 2023 08:30 AM AMBULATORY - PSYCHIATRY [facility] Feb 09, 2024 08:30 AM AMBULATORY - PSYCHIATRY [facility] Feb 12, 2024 01:30 PM AMBULATORY - NONE [place] [facility] [place] [facility] Feb 19, 2024 08:30 AM AMBULATORY - MEDICINE [facility] [place] [facility] Feb 21, 2024 08:40 AM AMBULATORY - MEDICINE [facility] [place] [facility] Social History: Smoking Status (Most current) and [...] AM VA-TOBACCO USER SOME DAYS [facility] Tobacco Use History This section includes a history of the smoking, or tobacco-related health factors, that were collected on or before the date of the Encounter. The data comes from the [place] facility where the Encounter took place. Date/Time Smoking Status/Tobacco Use Comment F acility Jun 22, 2023 09:00 AM VA-TOBACCO USE 30 YEARS OR MORE [facility] Jun 22, 2023 09:00 AM VA-TOBACCO USE ADVICE [facility] Jun 22, 2023 09:00 AM VA-TOBACCO USE PRODUCT SAFETY ENGINEER NO [facility] Jun 22, 2023 09:00 AM VA-TOBACCO USE MED NO [facility] Jun 22, 2023 09:00 AM VA-TOBACCO USER SOME DAYS [facility] Jan 13, 2022 02:00 PM VA-TOBACCO NEVER USED [facility] Jul 06, 2009 03:46 PM QUIT TOBACCO USE > 7 YEARS AGO [facility] Advance Directives: All historical and current [...] Jun 29, 2023 ADVANCE DIRECTIVE JAMES GALLO [facility] Sep 19, 2017 ADVANCE DIRECTIVE DINA MCGINNIS [facility] Encounter Notes: All associated encounter notes This section contains the clinical notes associated to the Encounter. Date/Time Encounter Note(s) Provider Source Aug 21, 2023 02:06 PM ADDENDUM: LOCAL TITLE: Addendum STANDARD TITLE: ADDENDUM DATE OF NOTE: AUG 21, 2023@14:06:11 ENTRY DATE: AUG 21, 2023@14:06:12 AUTHOR: ROULA GUALLPA COSIGNER: URGENCY: STATUS: COMPLETED F: Medication refill D: Vet says that he would like 90 day supplies for the following meds: 1) ATORVASTATIN CALCIUM 80MG TAB TAKE ONE-HALF TABLET BY ACTIVE (S) MOUTH EVERY EVENING AFTER SUPPER FOR CHOLESTEROL 2) EMPAGLIFLOZIN 10MG TAB TAKE ONE TABLET BY MOUTH ONCE ACTIVE (S) DAILY FOR DIABETES 3. METFORMIN 1000MG 24HR SA DAILY Take 500mg by mouth BID /janine/ ROULA GUALLPA MSN Ed., BSN PIGS FEET CLEANER NURSE Signed: 08/21/2023 14:13 Receipt Acknowledged By: 08/21/2023 14:16 /janine/ ARIEL INFANTE D.O. PHYSICIAN === --- Original Document --- 08/21/23 PRIMARY CARE SECURE MESSAGING: ------Original Message ------ Sent: 08/20/2023 07:06 AM ET From: LAKESHA SQUIRES To: Alex INFANTE _ [facility] Subject: Medication:Med Refills Good Morning Doctor Beni, In doing my 30 days at a time lay out for my daily meds, I found that I was in need of 3 refills, Atorvastatin 80mg, Metformin 500mg and Empagliflozin 10mg. I fill my daily pill containers 30 days in advance. Also, My and I camp all summer, Mid October thru the end of December. 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 Therefore, 90 day's supply is helpful, as I don't have to have the one of my kids run to the house and black pickler my scripts and mail them to wherever we're camping at any given time. Anyway, please add the three aforementioned med to the list and refill them for me please. Also, mailing them is fine, as I'm good for 30 days from today. Sincerely, Vijay ------Original Message ------ Sent: 08/21/2023 02:05 PM ET From: ROULA GUALLPA To: LAKESHA SQUIRES Subject: Medication:Med Refills [facility]... I will forward your request to Dr. Infante for her consideration. Jose J Guallpa MSN Ed., BSN, RN [phone] Ext [phone] /es/ ROULA GUALLPA MSN Ed., BSN PIGS FEET CLEANER NURSE Signed: 08/21/2023 14:05 ROULA GUALLPA [place] [facility] [place] [facility] Aug 21, 2023 01:05 PM PRIMARY CARE SECURE MESSAGING: LOCAL TITLE: PRIMARY CARE SECURE MESSAGING STANDARD TITLE: PRIMARY CARE SECURE MESSAGING DATE OF NOTE: AUG 21, 2023@13:05 ENTRY DATE: AUG 21, 2023@14:05:27 AUTHOR: ROULA GUALLPA EXP COSIGNER: URGENCY: STATUS: COMPLETED PRIMARY CARE SECURE MESSAGING Has ADDENDA ------Original Message ------ Sent: 08/20/2023 07:06 AM ET From: LAKESHA SQUIRES To: Alex INFANTE _ [facility] Subject: Medication:Med Refills Good Morning Doctor Beni, In doing my 30 days at a time lay out for my daily meds, I found that I was in need of 3 refills, Atorvastatin 80mg, Metformin 500mg and Empagliflozin 10mg. I fill my daily pill containers 30 days in advance. Also, My and I camp all summer, Mid October thru the end of December. 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 Therefore, 90 day's supply is helpful, as I don't have to have the one of my kids run to the house and black pickler my scripts and mail them to wherever we're camping at any given time. Anyway, please add the three aforementioned med to the list and refill them for me please. Also, mailing them is fine, as I'm good for 30 days from today. Sincerely, Vijay ------Original Message ------ Sent: 08/21/2023 02:05 PM ET From: ROULA GUALLPA To: LAKESHA SQUIRES Subject: Medication:[facility] I will forward your request to Dr. Infante for her consideration. Jose J Guallpa MSN Ed., BSN, RN [phone] Ext [phone] /es/ ROULA GUALLPA MSN Ed., BSN PIGS FEET CLEANER NURSE Signed: 08/21/2023 14:05 08/21/2023 ADDENDUM STATUS: COMPLETED F: Medication refill D: Vet says that he would like 90 day supplies for the following meds: 1) ATORVASTATIN CALCIUM 80MG TAB TAKE ONE-HALF TABLET BY ACTIVE (S) MOUTH EVERY EVENING AFTER SUPPER FOR CHOLESTEROL 2) EMPAGLIFLOZIN 10MG TAB TAKE ONE TABLET BY MOUTH ONCE ACTIVE (S) DAILY FOR DIABETES 3. METFORMIN 1000MG 24HR SA DAILY Take 500mg by mouth BID /es/ ROULA GUALLPA MSN Ed., BSN PIGS FEET CLEANER NURSE Signed: 08/21/2023 14:13 Receipt Acknowledged By: 08/21/2023 14:16 /es/ ARIEL INFANTE D.O. PHYSICIAN ROULA GUALLPA [place] [facility]
--- OUTSIDE RECORDS SUMMARY | 2024-06-03 09:00 | XMS_ITS ---
Author Name [facility] [place] Address [address] [place] [address] Care Team Providers Care Supervisor Print Line Name Role Phone ARIEL JIMENEZ Primary Care [...] Parra's Name Patient's Relationship to Policy Parra [facility] Dec 19, 2015 [id number] [phone] TANA NGO PATIENT [facility] Dec 19, 2015 [id number] [phone] LAKES[employer] NGO PATIENT [facility] May 29, 2012 [id number] [employer] PATIENT Selected Encounter This section includes the information on record at [place] for the Encounter. Date/Time Encounter Type Encounter Description Reason Pro vider Source Sep 05, 2023 12:00 AM Outpatient Encounter EVENT (HISTORICAL) IHE Encounter Template Text not used by [place] Plan of Treatment: Future Appointments (+ 6 months) and Future Tests (+/- 45 days) The Plan of Treatment section includes future care activities for the patient [facility] [place] [facility] This section includes future appointments and future [...] 07:30 AM AMBULATORY - REHAB MEDICIN E [place] [facility] [place] [facility] September 27, 2023 10:00 AM AMBULATORY - MEDICINE [place] [facility] October 18, 2023 03:30 PM AMBULATORY - REHAB MEDICIN E [place] [facility] [place] [facility] October 26, 2023 02:00 PM AMBULATORY - MEDICINE [facility] Nov 09, 2023 08:30 AM AMBULATORY - PSYCHIATRY [facility] Feb 09, 2024 08:30 AM AMBULATORY - PSYCHIATRY [facility] Feb 12, 2024 01:30 PM AMBULATORY - NONE [place] [facility] [place] [facility] Feb 19, 2024 08:30 AM AMBULATORY - MEDICINE [place] [facility] Feb 21, 2024 08:40 AM AMBULATORY - MEDICINE [place] [place] [facility] Mar 01, 2024 10:30 AM AMBULATORY - MEDICINE [facility] Lab Results: +/- 30 days of [...] Range Comment Sep 21, 2023 07:50 AM [place] [facility] HEMOGLOBIN A1C PANEL Specimen Type: [...] Jun 29, 2023 02:06 PM Reporting Lab: [facility] [address] [address] Performing Lab: [facility] [address] [facility] [address] HEMOGLOBIN A1C 5.9 H 4.0-5.6 Sep 21, 2023 07:50 AM [facility] TSH Specimen Type: SERUM No comment entered. Ordering Provider: ARIEL JIMENEZ Report Released Date/Time: Jun 29, 2023 02:06 PM Reporting Lab: [facility] [address] [facility] [address] Performing Lab: [facility] [address] [address] TSH 1.49 u[IU]/mL 0.35-5.00 Sep 21, 2023 07:50 AM [facility] MICROALBUMIN CREATININE RATIO PANEL Specimen Type: URINE No comment entered. Ordering Provider: ARIEL JIMENEZ Report Released Date/Time: Jun 29, 2023 02:06 PM Reporting Lab: [facility]ANTR[facility]ITAL[facility] [address] [facility] [address] Performing Lab: [facility]ERY[facility]ERN [facility]ITALUS[facility] [address] [facility] [address] MICROALBUMIN/C REATININE RATIO 8.8 mg/g 0-29.9 MICROALBUMIN,Q UANTITATIVE 0.5 mg/dL RR UNAVAIL CREATININE URINE 56.63 mg/dL Sep 21, 2023 07:50 AM [facility] BASIC METABOLIC PANEL (fasting) Specimen Type: SERUM No comment entered. Ordering Provider: ARIEL JIMENEZ Report Released Date/Time: Jun 29, 2023 02:06 PM Reporting Lab: [facility]N [facility] [address] [facility] [address] Performing Lab: [facility]ERYRW[facility]ERN [facility]ITALUSETS [address] [address] UREA NITROGEN 19 mg/dL 7-25 GLUCOSE 113 mg/dL H 65-100 SODIUM 137 mmol/L 135-145 POTASSIUM 4.0 mmol/L 3.5-5.0 CHLORIDE 102 mmol/L 100-110 CO2 26 meq/L 20-30 CREATININE, Serum 0.79 mg/dL 0.50-1.40 eGFR(CKD-EPI 2020) >90 mL/min >60 Social History: Smoking Status (Most current) and [...] 2023 09:00 AM VA-TOBACCO USER SOME DAYS [facility] Tobacco Use History This section includes a history of the smoking, or tobacco-related health factors, that were collected on or before the date of the Encounter. The data comes from the [place] facility where the Encounter took place. Date/Time Smoking Status/Tobacco Use Comment F acility Jun 22, 2023 09:00 AM VA-TOBACCO USE 30 YEARS OR MORE [place] [facility] Jun 22, 2023 09:00 AM VA-TOBACCO USE ADVICE [place] [facility] Jun 22, 2023 09:00 AM VA-TOBACCO USE MANAGER OF DATA NO [place] [facility] Jun 22, 2023 09:00 AM VA-TOBACCO USE MED NO [place] [facility] Jun 22, 2023 09:00 AM VA-TOBACCO USER SOME DAYS [place] [facility] [place] [facility] Jan 13, 2022 02:00 PM VA-TOBACCO NEVER USED [place] [facility] Jul 06, 2009 03:46 PM QUIT TOBACCO USE > 7 YEARS AGO [place] [facility] Advance Directives: All historical and [...] 29, 2023 ADVANCE DIRECTIVE JAMES GALLO [facility] Sep 19, 2017 ADVANCE DIRECTIVE DINA MCGINNIS [facility] Encounter Notes: All associated encounter notes This section contains the clinical notes associated to the Encounter. Date/Time Encounter Note(s) Provider Source Sep 05, 2023 12:00 AM NONVA NOTE: LOCAL TITLE: NON-VA OUTPATIENT NOTES STANDARD TITLE: NONVA NOTE DATE OF NOTE: SEP 05, 2023 ENTRY DATE: OCTOBER 02, 2023@10:54:16 AUTHOR: NO LOPEZ EXP COSIGNER: URGENCY: STATUS: COMPLETED VistA Imaging - Scanned Document SCANNED DOCUMENT SIGNATURE NOT REQUIRED Electronically Filed: 10/02/2023 by: NO LOPEZ LICENSED PRACTICAL NURSE NO LOPEZ [facility]
--- OUTSIDE RECORDS SUMMARY | 2024-06-03 09:00 | XMS_ITS ---
Author Name [facility] [place] [facility] [place] [facility] [place] Address [address] [place] [address] Care Team Providers Care Traffic Analyst Name Role Phone ARIEL JIMENEZ Primary Care Provider sImael patel Insurance Providers: All historical and current [...] Parra's Name Patient's Relationship to Policy Parra [facility] Dec 19, 2015 [id number] [employer] PATIENT [facility] Dec 19, 2015 [id number] [employer] PATIENT [facility] May 29, 2012 [id number] [employer] PATIENT Selected Encounter This section includes the information on record at [place] for the Encounter. Date/Time Encounter Type Encounter Description Reason Provider Source September 27, 2023 10:00 AM OFFICE O/P EST MOD 30 MIN PRIMARY CARE/MEDICINE ICD-10-CM E11.40 Type 2 diabetes mellitus with diabetic neuropathy, unsp FURCOLO,ARIEL IHE Encounter Template Text not used by [place] Assessments - Encounter Diagnoses This section includes the primary and secondary diagnoses documented for the Encounter. Date/Time Primary/Secondary Diagnosis Diagnosis Name Provider Source September 27, 2023 10:28 AM PRIMARY Type 2 diabetes mellitus with diabetic neuropathy, unsp FURCOLO,ARIEL [facility] [place] [facility] September 27, 2023 10:28 AM SECONDARY Essential (primary) hypertension FURCOLO,ARIEL [facility] [place] [facility] September 27, 2023 10:28 AM SECONDARY Obstructive sleep apnea (adult) (pediatric) FURCOLO,ARIEL [facility] [place] [facility] September 27, 2023 10:28 AM SECONDARY Pain in right knee FURCOLO,ARIEL [facility] [place] [facility] September 27, 2023 10:28 AM SECONDARY Radiculopathy, lumbar region FURCOLO,ARIEL [facility] [place] [facility] Plan of Treatment: Future Appointments (+ 6 months) and Future Tests (+/- 45 days) The Plan of Treatment section includes future care activities for the patient from all [place] [facility] This section includes future appointments and future orders which are active, pending or scheduled. Future Appointments This section includes appointments that were scheduled to occur 6 months from the date of the Encounter, up to a maximum of 20 appointments. The data comes from all [place] treatment facilities. Appointment Date/Time Appointment Type Appointme nt Facility Name October 18, 2023 03:30 PM AMBULATORY - REHAB MEDICIN E [facility] [place] [facility] October 26, 2023 02:00 PM AMBULATORY - MEDICINE [facility] Nov 09, 2023 08:30 AM AMBULATORY - PSYCHIATRY [facility] Feb 09, 2024 08:30 AM AMBULATORY - PSYCHIATRY [facility] Feb 12, 2024 01:30 PM AMBULATORY - NONE [facility] [place] [facility] Feb 19, 2024 08:30 AM AMBULATORY - MEDICINE [facility] [place] [facility] Feb 21, 2024 08:40 AM AMBULATORY - MEDICINE [facility] [place] [facility] Mar 01, 2024 10:30 AM [place] [facility] Mar 12, 2024 09:00 AM AMBULATORY - MEDICINE [place] [facility] [place] [facility] Mar 14, 2024 02:00 PM AMBULATORY - MEDICINE [place] [facility] [place] [facility] Mar 25, 2024 08:00 AM AMBULATORY - MEDICINE [place] [facility] [place] [facility] Mar 27, 2024 11:20 AM AMBULATORY - [facility] Lab Results: +/- 30 days of the encounter This section includes the Chemistry and Hematology Lab Results on record with [place] for the patient. Radiology Reports and Pathology Reports are provided separately, in subsequent sections. Lab Results This section contains the Chemistry/Hematology Results that were resulted 30 days before or 30 daysafter the date of the Encounter. Date/Time Source Result Type Result - Unit Interpretation Reference Range Comment Sep 21, 2023 07:50 AM [facility] HEMOGLOBIN A1C PANEL Specimen Type: BLOOD [...] Jun 29, 2023 02:06 PM Reporting Lab: [facility] [address] [facility] [address] Performing Lab: [facility] [address] HEMOGLOBIN A1C 5.9 H 4.0-5.6 Sep 21, 2023 07:50 AM [facility] TSH Specimen Type: SERUM No comment entered. Ordering Provider: ARIEL JIMENEZ Report Released Date/Time: Jun 29, 2023 02:06 PM Reporting Lab[facility] [address] [facility] [address] Performing Lab: [facility] [address] [address] TSH 1.49 u[IU]/mL 0.35-5.00 Sep 21, 2023 07:50 AM [facility] MICROALBUMIN CREATININE RATIO PANEL Specimen Type: URINE No comment entered. Ordering Provider: ARIEL JIMENEZ Report Released Date/Time: Jun 29, 2023 02:06 PM Reporting Lab: [facility] [address] [facility] [address] Performing Lab: [address] [address] MICROALBUMIN/C REATININE RATIO 8.8 mg/g 0-29.9 MICROALBUMIN,Q UANTITATIVE 0.5 mg/dL RR UNAVAIL CREATININE URINE 56.63 mg/dL Sep 21, 2023 07:50 AM [facility] BASIC METABOLIC PANEL (fasting) Specimen Type: SERUM No comment entered. Ordering Provider: ARIEL JIMENEZ Report Released Date/Time: Jun 29, 2023 02:06 PM Reporting Lab: [facility] [address] [facility] [address] Performing Lab: [address] [address] UREA NITROGEN 19 mg/dL 7-25 GLUCOSE 113 mg/dL H 65-100 SODIUM 137 mmol/L 135-145 POTASSIUM 4.0 mmol/L 3.5-5.0 CHLORIDE 102 mmol/L 100-110 CO2 26 meq/L 20-30 CREATININE, Serum 0.79 mg/dL 0.50-1.40 eGFR(CKD-EPI 2020) >90 mL/min >60 Vital Signs: All taken on the encounter date This section contains inpatient and outpatient Vital Signs collected on the date of the Encounter. Date/Time Temperature Pulse Blood Pressure Respiratory Rate SP02 Pain Height Weight Body Mass Index Source September 27, 2023 09:45 AM 98.4 90 121/83 16 96 0 221 28 [facility] Social History: Smoking Status (Most current) and Tobacco Use (All prior to encounter date) This section includes the most current, and the historical, smoking and tobacco- related health factors from the [place] facility where the Encounter took place. Current Smoking Status This section includes the most current smoking, or tobacco-related health factor, from the [place] facility where the Encounter took place. Date/Time Current Smoking Status Comment Facil ity Jun 22, 2023 09:00 AM VA-TOBACCO USER SOME DAYS [facility] Tobacco Use History This section includes a history of the smoking, or tobacco-related health factors, that were collected on or before the date of the Encounter. The data comes from the [place] facility where the Encounter took place. 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 [facility] Jun 22, 2023 09:00 AM VA-TOBACCO USE MED NO [facility] Jun 22, 2023 09:00 AM VA-TOBACCO USER SOME DAYS [facility] [place] [facility] Jan 13, 2022 02:00 PM VA-TOBACCO NEVER USED [facility] Jul 06, 2009 03:46 PM QUIT TOBACCO USE > 7 YEARS AGO [facility] Advance Directives: All historical and current Section Date Range: From patient's date of to the date document was created. This section includes ALL of a patient's completed or amended [place] Advance and Rescinded Directives. The entries below indicate that a directive exists for the patient, but an actual copy is not included with this document. The data comes from all [place] facilities. Date Advance Directives Provider Source Jun 29, 2023 ADVANCE DIRECTIVE JAMES GALLO [place] [facility] Sep 19, 2017 ADVANCE DIRECTIVE DINA MCGINNIS [facility] Encounter Notes: All associated encounter notes This section contains the clinical notes associated to the Encounter. Date/Time Encounter Note(s) Provider Source September 27, 2023 10:05 AM ADMINISTRATIVE NOTE: LOCAL TITLE: FAX/MAIL RECEIVED STANDARD TITLE: ADMINISTRATIVE NOTE DATE OF NOTE: SEPTEMBER 27, 2023@10:05 ENTRY DATE: SEPTEMBER 27, 2023@10:05:17 AUTHOR: JAXSON HARDEN EXP COSIGNER: URGENCY: STATUS: COMPLETED Document Received On: September Document Type: Other: RMV aplication for DV plate Date of Service: September Facility and or Provider: Contact Information: PCP of Record: ARIEL JIMENEZ Next visit with PCP: 11/09/2023 08:30 CWM/SO/VVC/MHC/LARROW 02/19/2024 08:30 NHM/OPTOMETRY/[facility] May keep copies of this document for up to 14 days and send the original for scanning. /janine/ JAXSON HARDEN LPN License Practical Nurse Signed: 09/27/2023 10:05 JAXSON HARDEN [facility] September 27, 2023 10:02 AM PREVENTIVE MEDICINE NURSING NOTE: LOCAL TITLE: CLINICAL REMINDERS/NURSING STANDARD TITLE: PREVENTIVE MEDICINE NURSING NOTE DATE OF NOTE: SEPTEMBER 27, 2023@10:02 ENTRY DATE: SEPTEMBER 27, 2023@10:02:31 AUTHOR: JAXSON HARDEN EXP COSIGNER: URGENCY: STATUS: COMPLETED Suicide Screen: C-SSRS Screening [place] Suicide Severity Rating Scale (C-SSRS) screener 1. Over the past month, have you wished you were or wished you could go to sleep and not wake up? No 2. Over the past month, have you had any actual thoughts of killing yourself? No 3. Over the past month, have you been thinking about how you might do this? Response not required due to responses to other questions. 4. Over the past month, have you had these thoughts and had some intention of acting on them? Response not required due to responses to other questions. 5. Over the past month, have you started to work out or worked out the details of how to kill yourself? Response not required due to responses to other questions. 6. If yes, at any time in the past month did you intend to carry out this plan? Response not required due to responses to other questions. 7. In your lifetime, have you ever done anything, started to do anything, or prepared to do anything to end your life (for example, collected pills, obtained a gun, gave away valuables, went to the roof but didn't jump)? No 8. If YES, was this within the past 3 months? Response not required due to responses to other questions. Influenza Immunization: The patient has received the seasonal influenza vaccine for the current season at another location. Documented: INFLUENZA, UNSPECIFIED FORMULATION Historical Date Administered: Mar 06, 2023 Series: Complete Outside Location: Outside Healthcare Provider Information Source: FROM PATIENT'S RECALL Sexual Orientation: The patient thinks of their sexual orientation as: Straight or Heterosexual COVID-19 Immunization: Refused Moderna Monovalent COVID-19 vaccine Immunization: COVID-19 (MODERNA), MRNA, LNP-S, PF, 50 MCG/0.5 ML (AGES 12+ YEARS) Refusal Reason: PATIENT DECISION Patient refuses all immunization(s) in the COVID-19 group Date Documented: 09/27/23 10:03 PAVE Foot Check: A complete foot check was completed at this encounter. VISUAL INSPECTION: Includes inspection for skin breaks, deformity, erythema, trauma, pallor on elevation, dependent rubor, nail deformities, extensive callus and pitting edema. Visual exam results: Normal PEDAL PULSES: Includes palpation of dorsalis and posterior tibial pulses and signs/symptoms of vascular compromise like pain, pallor, parasthesia or paralysis. Present (even if diminished) SENSORY CHECK: Includes 10 gram Monofilament ([place]-Jaun) test of sensation. Intact (Greater than or equal to 80% of sites checked) Abnormal (Less than 80% of sites checked): Intact LOW-RISK: LOW RISK INFORMATION PROVIDED: 1. Advised patient not to walk barefoot. 2. Explained the importance of daily foot checks for changes. 3. Stressed the importance of daily foot hygiene, including bathing and complete drying. /janine/ JAXSON HARDEN LPN License Practical Nurse Signed: 09/27/2023 10:03 JAXSON HARDEN [place] [facility] [place] [facility] September 27, 2023 08:53 AM PHYSICIAN NOTE: LOCAL TITLE: MD NOTE STANDARD TITLE: PHYSICIAN NOTE DATE OF NOTE: SEPTEMBER 27, 2023@08:53 ENTRY DATE: SEPTEMBER 27, 2023@08:53:48 AUTHOR: ARIEL JIMENEZ EXP COSIGNER: URGENCY: STATUS: COMPLETED LAKESHA SQUIRES JR is a 57 year old WHITE MALE who is being seen today in primary care for follow-up. CARE TEAM Community Primary Care Provider: none [facility] Specialists: ENT [facility]- DR. Brooks optometry audiology Community Specialists: ENT Dr Walter Kulkarni in [place]/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. HISTORY OF PRESENT ILLNESS lots of secure messages in past few months regarding knees/back and refills. plan for TKR in fall- after gets back from camping trip. will need meds for travel- away for 90 days. will work with pharmacy for sooner 90 day supply. had sleep study 08/31/23- [place] [facility]- sensor no longer working recent slicing of tips of finger - went to ER- had stitches placed- to be removed in 10 days- did get tetanus updated RELEVANT PAST MEDICAL HISTORY Active problems - Computerized Problem List is the source for the followin. Diabetes mellitus with neuropathy 2. Lumbar radiculopathy 3. Obstructive sleep apnea syndrome 4. Adjustment disorder with anxious mood reviewed reviewed 5. Essential hypertension 6. Colonoscopy normal in 2013; was told normal 7. Hyperlipidemia 8. Knee pain (SNOMED CT 18571866) 9. Diabetes mellitus type 2 without retinopathy (SNOMED CT 1628190891637) 10. Asthma 11. Hearing loss 12. 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 Alcohol Use: [...] - - - - - - B/P: 121/83 (09/27/2023 09:45) pulse: 90 (09/27/2023 09:45) resp: 16 (09/27/2023 09:45) temp: 98.4 F [36.9 C] (09/27/2023 09:45) Ht: 75 in [190.5 cm] (06/29/2023 12:54) Wgt: 221 lb [100.24 kg] (09/27/2023 09:45) BMI: BMI: 27.7 Exam: - - - - - - - n/a RECENT LABS Your recent test results are as follows: LAB CHEMISTRY & HEMATOLOGY Collection DT Specimen Test Name Result Units Ref Range 09/21/2023 07:50 URINE mALB/Cr 8.8 mg/G 0 - 29.9 MicroAl 0.5 mg/dL Ref: RR UNAVAIL CREATININE URINE 56.63 mg/dL 09/21/2023 07:50 SERUM TSH 1.49 uIU/mL 0.35 - 5.00 CREATININE, Serum 0.79 mg/dL 0.50 - 1.40 eGFR(CKD-EPI 2020 >90 mL/min Ref: >=60 SODIUM 137 mmol/L 135 - 145 POTASSIUM 4.0 mmol/L 3.5 - 5.0 CHLORIDE 102 mmol/L 100 - 110 CO2 26 mEq/L 20 - 30 UREA NITROGEN 19 mg/dL 7 - 25 GLUCOSE 113 H mg/dL 65 - 100 09/21/2023 07:50 BLOOD !! HEMOGLOBIN A1C 5.9 H % 4.0 - 5.6 ASSESSMENT AND PLAN Active problems - Computerized Problem List is the source for the followin. Diabetes mellitus with neuropathy- great control currently. weaned off of insulin. reduced metformin to just once daily. on semaglutide and empagliflozin. hbA1c <6. f/u labs in 6 mo. discussed OK to keep metformin as BID as not having any side effects 2. Lumbar radiculopathy-went to chiropractor and had good improvement 3. Obstructive sleep apnea syndrome- had inspire surgical procedure- has a sensor device which is no longer working very well. Placed consult to [facility]. did home sleep study 08/31/23- pending eval for inspire sensor 4. Adjustment disorder with anxious mood - more depression recently. has been on sertraline- but with erectile dysfunction- recent change to wellbutrin. will use viagra for the next few motnhs as needed. suspect when sertraline is out of his system entirely- may not need to use as much. 5. Essential hypertension- at goal. f/u in 6 mo with labs 6. Colonoscopy normal in 2013; was told normal; due for repeat- placed referral 7. Hyperlipidemia 8. Knee pain (SNOMED CT 93299982)- right knee, sees ortho @ [facility]. planning for TKR in the fall 9. Diabetes mellitus type 2 without retinopathy (SNOMED CT [id number]) HEALTH MAINTENANCE Colonoscopy - due Abdominal Aortic Aneurysm Screening (due at age 65 if smoker/prev smoker) - Prostate screening - Tetanus: done in ER [facility] 08/2023 when sliced finger Pneumonia Vacccine: Flu Vaccine: due yearly Covid Vaccine: due yearly FOLLOW UP f/u in 6 mo VISIT TYPE: a MODERATE complexity visit where 30 - 45 minutes was spent in direct patient care, review of records and documentation. /janine/ ARIEL JIMENEZ D.O. PHYSICIAN Signed: 09/27/2023 10:28 ARIEL JIMENEZ [facility]
--- OUTSIDE RECORDS SUMMARY | 2024-06-03 09:00 | XMS_ITS ---
Author Name [facility] [place] [facility] [place] [facility] [facility] [place] Address [address] [place] [address] Care Team Providers Care Education Diagnostician Name Role Phone ARIEL JIMENEZ Primary Care [...] Parra's Name Patient's Relationship to Policy Parra [facility] Dec 19, 2015 [id number] [phone] [employer] PATIENT [facility] Dec 19, 2015 [id number] [employer] PATIENT [facility] May 29, 2012 [id number] [employer] PATIENT Selected Encounter This section includes the information on record at [place] for the Encounter. Date/Time Encounter Type Encounter Description Reason Provider Source Aug 29, 2023 10:12 AM Outpatient Encounter PRIMARY CARE/MEDICINE JAXSON HARDEN Encounter Template Text not used by [place] Plan of Treatment: Future Appointments (+ 6 months) and Future Tests (+/- 45 days) The Plan of Treatment section includes [facility] care [facility] the [facility] [place] [facility] This section includes future appointments and future orders which are active, pending or scheduled. Future Appointments This section includes appointments that were scheduled to occur 6 months from the date of the Encounter, up to a maximum of 20 appointments. The data comes from all [place] treatment facilities. Appointment Date/Time Appointment Type Appointme nt Facility Name Sep 22, 2023 07:30 AM AMBULATORY - REHAB MEDICIN E [place] [facility] [place] [facility] September 27, 2023 10:00 AM AMBULATORY - MEDICINE IN [facility] [place] [facility] October 18, 2023 03:30 PM AMBULATORY - REHAB MEDICIN E IN [facility] [place] [facility] October 26, 2023 02:00 PM AMBULATORY - MEDICINE [facility] Nov 09, 2023 08:30 AM AMBULATORY - PSYCHIATRY [facility] Feb 09, 2024 08:30 AM AMBULATORY - PSYCHIATRY [facility] Feb 12, 2024 01:30 PM AMBULATORY - NONE IN [facility] [place] [facility] Feb 19, 2024 08:30 AM AMBULATORY - MEDICINE IN [facility] [place] [facility] Feb 21, 2024 08:40 AM AMBULATORY - MEDICINE IN [place] [facility] [place] [facility] Lab Results: +/- 30 days of the encounter This section includes the Chemistry and Hematology Lab Results on record with [place] for the patient. Radiology Reports and Pathology Reports are provided separately, in subsequent sections. Lab Results This section contains the Chemistry/Hematology Results that were resulted 30 days before or 30 daysafter the date of the Encounter. Date/Time Source Result Type Result - Unit Interpretation Reference Range Comment Sep 21, 2023 07:50 AM [place] [facility] [place] [facility] HEMOGLOBIN A1C PANEL Specimen Type: BLOOD [...] Jun 29, 2023 02:06 PM Reporting Lab[facility] [address] [address] Performing Lab: [facility] [address] [facility] [address] HEMOGLOBIN A1C 5.9 H 4.0-5.6 Sep 21, 2023 07:50 AM [facility] TSH Specimen Type: SERUM No comment entered. Ordering Provider: ARIEL JIMENEZ Report Released Date/Time: Jun 29, 2023 02:06 PM [facility] [address] [address] Performing Lab: [facility] [address] [address] TSH 1.49 u[IU]/mL 0.35-5.00 Sep 21, 2023 07:50 AM [facility] MICROALBUMIN CREATININE RATIO PANEL Specimen Type: URINE No comment entered. Ordering Provider: ARIEL JIMENEZ Report Released Date/Time: Jun 29, 2023 02:06 PM Reporting Lab[facility] [address] [facility] [address] Performing Lab: [facility] [address] MICROALBUMIN/C REATININE RATIO 8.8 mg/g 0-29.9 MICROALBUMIN,Q UANTITATIVE 0.5 mg/dL RR UNAVAIL CREATININE URINE 56.63 mg/dL Sep 21, 2023 07:50 AM [facility] BASIC METABOLIC PANEL (fasting) Specimen Type: SERUM No comment entered. Ordering Provider: ARIEL JIMENEZ Report Released Date/Time: Jun 29, 2023 02:06 PM Reporting Lab: [facility] [address] [address] Performing Lab: [address] [address] UREA NITROGEN 19 mg/dL 7-25 GLUCOSE 113 [...] and tobacco- related health factors from the [place] facility where the Encounter took place. Current Smoking Status This section includes the most current smoking, or tobacco-related health factor, from the [place] facility where the Encounter took place. Date/Time Current Smoking Status Comment Facil ity Jun 22, 2023 09:00 AM VA-TOBACCO USER SOME DAYS [facility] Tobacco Use History This section includes a history of the smoking, or tobacco-related health factors, that were collected on or before the date of the Encounter. The data comes from the [place] facility where the Encounter took place. Date/Time Smoking Status/Tobacco Use Comment F acility Jun 22, 2023 09:00 AM VA-TOBACCO USE 30 YEARS OR MORE [facility] Jun 22, 2023 09:00 AM VA-TOBACCO USE ADVICE [facility] Jun 22, 2023 09:00 AM VA-TOBACCO USE ENGAGEMENT MANAGER NO IN [facility] [place] [facility] Jun 22, 2023 09:00 AM VA-TOBACCO USE MED NO [facility] [place] [facility] Jun 22, 2023 09:00 AM VA-TOBACCO USER SOME DAYS IN [facility] [place] [facility] Jan 13, 2022 02:00 PM VA-TOBACCO NEVER USED [facility] [place] [facility] Jul 06, 2009 03:46 PM QUIT TOBACCO USE > 7 YEARS AGO [facility] Advance Directives: All historical and current Section Date Range: From patient's date of to the date document was created. This section includes ALL of a patient's completed or amended [place] Advance and Rescinded Directives. The entries below indicate that a directive exists for the patient, but an actual copy is not included with this document. The data comes from all [place] facilities. Date Advance Directives Provider Source Jun 29, 2023 ADVANCE DIRECTIVE JAMES GALLO [facility] Sep 19, 2017 ADVANCE DIRECTIVE DINA MCGINNIS [facility] Encounter Notes: All associated encounter notes This section contains the clinical notes associated to the Encounter. Date/Time Encounter Note(s) Provider Source Sep 08, 2023 09:17 AM PRIMARY CARE SECUR E MESSAGING: [facility] TITLE: PRIMARY CARE SECURE MESSAGING STANDARD TITLE: PRIMARY CARE SECURE MESSAGING DATE OF NOTE: SEP 08, 2023@09:17 ENTRY DATE: SEP 08, 2023@10:17:19 AUTHOR: JAXSON HARDEN EXP COSIGNER: URGENCY: STATUS: COMPLETED ------Original Message ------ Sent: 08/29/2023 06:53 AM ET From: LAKESHA SQUIRES To: Alex JIMENEZ _ PRIMARY CARE_[facility] Subject: General:Ortho Referal Good Morning Doctor, I had my appointment with the [facility]'s Ortho Dept. Dr. Fritz felt that I am within the demographics for a right knee replacement. However, with our summer camping, the timing is not optimal. He felt that fall would be the best time to look at it. My history with him was that steroids injections were unsuccessful. He's prescribed a [employer] mechanical brace that will help with taking those walks and bike riding, over the summer. He also said to change from Motrin to Advil. I'm concerned that there is a huge co-pay that goes with the [employer] Brace. Is this something that the [place] covers? Thank you, Vijay ------Original Message ------ Sent: 08/29/2023 11:12 AM ET From: JAXSON HARDEN To: LAKESHA SQUIRES Subject: General:Ortho Referal lorena Is it possible for you to deliver us a script for the brace so we could see if we could get it from the prosthetic department ? The pic could also be attached in [employer] vet. If you want to know the exact cost of the brace you can reach the prosthetic department at [phone]. Do you want Advil from [place] pharmacy, if yes please have your surgeon office send it to [place] pharmacy. Jaxson Primary ------Original Message ------ Sent: 08/29/2023 01:17 PM ET From: JAXSON HARDEN To: LAKESHA SQUIRES Subject: General:Ortho Referal Attachments: [facility] prosthetics FLYER .doc (1.02 MB) Lorena I am attaching [facility] prosthetic flyer for more information ------Original Message ------ Sent: 09/01/2023 06:34 AM ET From: LAKESHA SQUIRES To: Alex JIMENEZ [facility] Subject: General:Ortho Referal , I'm working on that today. I will put it into my healthy vet and send it over soon as I get it. Thank you Vijay ------Original Message ------ Sent: 09/01/2023 08:11 AM ET From: YOGI DOMINGUEZ To: LAKESHA SQUIRES Subject: General:Ortho Referal , Thank you for working on getting that information to us so that we can get you what you need. Respectfully, Yogi Dominguez RN ------Original Message ------ Sent: 09/07/2023 11:14 AM ET From: LAKESHA SQUIRES To: Alex JIMENEZ [facility] Subject: General:Ortho Referal Attachments: [id number].jpeg (3.92 MB) , Here is a copy of the script from the orthopedic surgeon for the unloading brace. He used the founder president and ceo called [employer] thank you. ------Original Message ------ Sent: 09/08/2023 10:17 AM ET From: JAXSON HARDEN To: LAKESHA SQUIRES Subject: General:Ortho Referal Lorena I have forwarded your script to prosthetics, trying to figure out next step.. Thank you for your patience [facility] // JAXSON HARDEN LPN License Practical Nurse Signed: 09/08/2023 10:17 JAXSON HARDEN [facility] [place] [facility] Aug 29, 2023 10:12 AM PRIMARY CARE [facility] MESSAGING: LOCAL TITLE: PRIMARY CARE SECURE MESSAGING STANDARD TITLE: PRIMARY CARE SECURE MESSAGING DATE OF NOTE: AUG 29, 2023@10:12 ENTRY DATE: AUG 29, 2023@11:12:44 AUTHOR: JAXSON HARDEN EXP COSIGNER: URGENCY: STATUS: COMPLETED ------Original Message ------ Sent: 08/29/2023 06:53 AM ET From: LAKESHA SQUIRES To: Alex JIMENEZ _ [facility]IMARY [facility] Subject: General:Ortho Referal Good Morning Doctor, I had my appointment with the [facility]'s Ortho Dept. Dr. Fritz felt that I am within the demographics for a right knee replacement. However, with our summer camping, the timing is not optimal. He felt that fall would be the best time to look at it. My history with him was that steroids injections were unsuccessful. He's prescribed a [employer] mechanical brace that will help with taking those walks and bike riding, over the summer. He also said to change from Motrin to Advil. I'm concerned that there is a huge co-pay that goes with the [employer] Brace. Is this something that the [place] covers? Thank you, Vijay ------Original Message ------ Sent: 08/29/2023 11:12 AM ET From: JAXSON HARDEN To: LAKESHA SQUIRES Subject: General:Ortho Referal wilfridlo Is it possible for you to deliver us a script for the brace so we could see if we could get it from the prosthetic department ? The pic could also be attached in [facility] vet. If you want to know the exact cost of the brace you can reach the prosthetic department at [phone]. Do you want Advil from [place] pharmacy, if yes please have your surgeon office send it to [place] pharmacy. Jaxson Primary /janine/ JAXSON HARDEN LPN License Practical Nurse Signed: 08/29/2023 11:12 JAXSON HARDEN [facility] [place] [facility]
--- OUTSIDE RECORDS SUMMARY | 2024-06-03 09:00 | XMS_ITS ---
Author Name Department of Veter[place] Organization Department [place] Address [address] [place] [address] Care Team Providers Care Associate Professor Of Violin Name Role Phone ARIEL JIMENEZ Primary Care [...] Parra's Name Patient's Relationship to Policy Parra [facility] Dec 19, 2015 [id number] TANA NGO PATIENT [facility] Dec 19, 2015 [id number] LAKESHA NGO PATIENT [facility] May 29, 2012 [id number] TANA [employer] PATIENT Selected Encounter This section includes the information on record at [place] for the Encounter. Date/Time Encounter Type Encounter Description Reason Provider Source Sep 22, 2023 07:30 AM ORTHC/PROSTC MGMT SBSQ ENC PHYSICAL THERAPY ICD-10-CM 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, not elsewhere classified, unspecified knee MINDIKAVITHAI N IHE Encounter Template Text not used by [place] Assessments - Encounter Diagnoses This section includes the primary and secondary diagnoses documented for the Encounter. Date/Time Primary/Secondary Diagnosis Diagnosis Name Provider Source Sep 22, 2023 08:31 AM PRIMARY Varus deformity, not elsewhere classified, unspecified knee RENETTA OBREGON N [facility] Plan of Treatment: Future Appointments (+ 6 months) and Future Tests (+/- 45 days) The Plan of Treatment section includes future care activities for the patient from all [place] treatmentfacilities. This section includes future appointments and future orders which are active, pending or scheduled. Future Appointments This section includes appointments that were scheduled to occur 6 months from the date of the Encounter, up to a maximum of 20 appointments. The data comes from all [place] treatment facilities. Appointment Date/Time Appointment Type Appointme nt Facility Name September 27, 2023 10:00 AM AMBULATORY - MEDICINE [facility] [place] [facility] October 18, 2023 03:30 PM [facility] [place] [place] [facility] October 26, 2023 02:00 PM AMBULATORY - MEDICINE [facility] Nov 09, 2023 08:30 AM AMBULATORY - PSYCHIATRY [facility] Feb 09, 2024 08:30 AM AMBULATORY - PSYCHIATRY [facility] Feb 12, 2024 01:30 PM AMBULATORY - NONE [place] [facility] Feb 19, 2024 08:30 AM AMBULATORY - MEDICINE [facility] [place] [facility] Feb 21, 2024 08:40 AM AMBULATORY - MEDICINE [place] C [place] [facility] Mar 01, 2024 10:30 AM AM[facility]ULATORY [facility]INE [facility] [place] [facility] Mar 12, 2024 09:00 AM AMBULATORY - MEDICINE [facility] [place] [facility] Mar 14, 2024 02:00 PM AMBULATORY - MEDICINE [facility] [place] [facility] Lab Results: +/- 30 days of the encounter This section includes the Chemistry and Hematology Lab Results on record with [place] for the patient. Radiology Reports and Pathology Reports are provided separately, in subsequent sections. Lab Results This section contains the Chemistry/Hematology Results that were resulted 30 days before or 30 daysafter the date of the Encounter. Date/Time Source Result Type Result - Unit Interpretation Reference Range Comment Sep 21, 2023 07:50 AM [facility] HEMOGLOBIN A1C PANEL Specimen Type: BLOOD Comment: [...] Jun 29, 2023 02:06 PM Reporting Lab: [address] [address] Performing Lab: [address] [address] HEMOGLOBIN A1C 5.9 H 4.0-5.6 Sep 21, 2023 07:50 AM [facility] TSH Specimen Type: SERUM No comment entered. Ordering Provider: ARIEL JIMENEZ Report Released Date/Time: Jun 29, 2023 02:06 PM Reporting Lab: [facility] [address] [address] Performing Lab: [address] [address] TSH 1.49 u[IU]/mL 0.35-5.00 Sep 21, 2023 07:50 AM [facility] MICROALBUMIN CREATININE RATIO PANEL Specimen Type: URINE No comment entered. Ordering Provider: ARIEL JIMENEZ Report Released Date/Time: Jun 29, 2023 02:06 PM Reporting Lab: [address] [address] Performing Lab: [address] [address] MICROALBUMIN/C REATININE RATIO 8.8 mg/g 0-29.9 MICROALBUMIN,Q UANTITATIVE 0.5 mg/dL RR UNAVAIL CREATININE URINE 56.63 mg/dL Sep 21, 2023 07:50 AM [facility] BASIC METABOLIC PANEL (fasting) Specimen Type: SERUM No comment entered. Ordering Provider: ARIEL JIMENEZ Report Released Date/Time: Jun 29, 2023 02:06 PM Reporting Lab: [facility] [address] [address] Performing Lab: [facility] [address] [address] UREA NITROGEN 19 mg/dL 7-25 GLUCOSE 113 [...] and tobacco- related health factors from the [place] facility where the Encounter took place. Current Smoking Status This section includes the most current smoking, or tobacco-related health factor, from the [place] facility where the Encounter took place. Date/Time Current Smoking Status Comment Rosendo rubio Jun 22, 2023 09:00 AM VA-TOBACCO USE 30 YEARS OR MORE [facility] Tobacco Use History This section includes a history of the smoking, or tobacco-related health factors, that were collected on or before the date of the Encounter. The data comes from the [place] facility where the Encounter took place. Date/Time Smoking Status/Tobacco Use Comment F acility Jun 22, 2023 09:00 AM VA-TOBACCO USE 30 YEARS OR MORE [place] [facility] Jun 22, 2023 09:00 AM VA-TOBACCO USE ADVICE [facility] Jun 22, 2023 09:00 AM VA-TOBACCO USE WEIGHT CLERK NO [place] [facility] Jun 22, 2023 09:00 AM VA-TOBACCO USE MED NO [facility] Jun 22, 2023 09:00 AM VA-TOBACCO USER SOME DAYS [facility] Jan 13, 2022 02:00 PM VA-TOBACCO NEVER USED [facility] Jul 06, 2009 03:46 PM QUIT TOBACCO USE > 7 YEARS AGO [facility] Advance Directives: All historical and current Section Date Range: From patient's date of to the date document was created. This section includes ALL of a patient's completed or amended [place] Advance and Rescinded Directives. The entries below indicate that a directive exists for the patient, but an actual copy is not included with this document. The data comes from all [place] facilities. Date Advance Directives Provider Source Jun 29, 2023 ADVANCE DIRECTIVE JAMES GALLO [facility] Sep 19, 2017 ADVANCE DIRECTIVE DINA MCGINNIS [facility] Encounter Notes: All associated encounter notes This section contains the clinical notes associated to the Encounter. Date/Time Encounter Note(s) Provider Source October 13, 2023 02:53 PM ADDENDUM: LOCAL TITLE: Addendum STANDARD TITLE: ADDENDUM DATE OF NOTE: OCTOBER 13, 2023@14:53:48 ENTRY DATE: OCTOBER 13, 2023@14:53:49 AUTHOR: NO GOOD COSIGNER: URGENCY: STATUS: COMPLETED called and left secure message regarding status of offloader knee brace .He would like to know if it has arrived and if can pick it up /janine/ NO GOOD ADVANCED TELEVISION PRODUCTION ASSISTANT Signed: 10/13/2023 14:54 Receipt Acknowledged By: 10/16/2023 07:47 /janine/ KELLIE VARGAS LICENSE DERRICK WORKER ====== --- Original Document --- 09/22/23 PHYSICAL THERAPY INITIAL NOTE: Initial Evaluation date: Aug Progress Note Date: Treatment #: 0 Treatment time: 15 mins Diagnosis: Varus Deformity, not elsewhere classified, unspecified Knee Provider: PT Treatment Precautions: Patient identified by full name and date of PROSTHETIC CHECKOUT-Physical Therapy Pt was measured and ordered an Ossur Underliner Knee brace on this date, will provide education in wear and care of it when the brace is available, was provided with the phone number to the clinic should any questions arise () Pt is I and safe with use of equipment () Pt requires assistance: () Pt was educated to use, care, and safety of the equipment and demonstrated/verbalized understanding of same. () Pt was issued manual or written instructions. () Suggested pt call this therapist with any questions. () Goal of safe use of equipment met. No further services provided at this time. (x) Other: Will provide education and fitting when brace is available /janine/ KELLIE VARGAS LICENSE DERRICK WORKER Signed: 09/22/2023 08:31 Receipt Acknowledged By: 09/22/2023 10:13 /jeff CALVILLO PT PHYSICAL THERAPIST 09/22/2023 ADDENDUM STATUS: COMPLETED [place] came in with a request from a community provider for R medial supply analyst, script sent in for scanning /janine/ KELLIE VARGAS LICENSE DERRICK WORKER Signed: 09/22/2023 08:50 09/22/2023 ADDENDUM STATUS: COMPLETED Pt is appropriate to be seen by DISTRICT SALES MANAGER upon arrival of medial offloader brace /jeff CALVILLO PT PHYSICAL THERAPIST Signed: 09/22/2023 10:23 NO GOOD OR CNTL [place] [facility] Sep 22, 2023 08:26 AM PHYSICAL THERAPY INITIAL EVALUATION NOTE: LOCAL TITLE: PHYSICAL THERAPY INITIAL NOTE STANDARD TITLE: PHYSICAL THERAPY INITIAL EVALUATION NOTE DATE OF NOTE: SEP 22, 2023@08:26 ENTRY DATE: SEP 22, 2023@08:26:11 AUTHOR: SYEDA OBREGON COSIGNER: URGENCY: STATUS: COMPLETED PHYSICAL THERAPY INITIAL NOTE Has ADDENDA Initial Evaluation date: Aug Progress Note Date: Treatment #: 0 Treatment time: 15 mins Diagnosis: Varus Deformity, not elsewhere classified, unspecified Knee Provider: PT Treatment Precautions: Patient identified by full name and date of PROSTHETIC CHECKOUT-Physical Therapy Pt was measured and ordered an Ossur Underliner Knee brace on this date, will provide education in wear and care of it when the brace is available, was provided with the phone number to the clinic should any questions arise () Pt is I and safe with use of equipment () Pt requires assistance: () Pt was educated to use, care, and safety of the equipment and demonstrated/verbalized understanding of same. () Pt was issued manual or written instructions. () Suggested pt call this therapist with any questions. () Goal of safe use of equipment met. No further services provided at this time. (x) Other: Will provide education and fitting when brace is available /jnaine/ KELLIE VARGAS LICENSE DERRICK WORKER Signed: 09/22/2023 08:31 Receipt Acknowledged By: 09/22/2023 10:13 /janine/ BRYCE CALVILLO PT PHYSICAL THERAPIST 09/22/2023 ADDENDUM STATUS: COMPLETED came in with a request from a community provider for R medial supply analyst, script sent in for scanning /janine/ KELLIE VARGAS DERRICK WORKER Signed: 09/22/2023 08:50 09/22/2023 ADDENDUM STATUS: COMPLETED Pt is appropriate to be seen by DISTRICT SALES MANAGER upon arrival of medial offloader brace /janine/ BRYCE CALVILLO PT PHYSICAL THERAPIST Signed: 09/22/2023 10:23 10/13/2023 ADDENDUM STATUS: COMPLETED [place] called and left secure message regarding status of offloader knee brace .He would like to know if it has arrived and if can pick it up /janine/ NO GOOD ADVANCED TELEVISION PRODUCTION ASSISTANT Signed: 10/13/2023 14:54 Receipt Acknowledged By: * AWAITING SIGNATURE * SYEDA OBREGON [facility]
--- OUTSIDE RECORDS SUMMARY | 2024-06-03 09:00 | XMS_ITS | Encounter Summary ---
Author Name [place] Address [address] [place] [address] Care Team Providers Care Rubber Tubing Splicer Name Role Phone ARIEL JIMENEZ Primary Care [...] Parra's Name Patient's Relationship to Policy Parra [facility] Dec 19, 2015 [id number] [id number] TANA NGO PATIENT [facility] Dec 19, 2015 [phone] LAKESHA NGO [facility] May 29, 2012 [id number] TANA [employer] PATIENT Selected Encounter This section includes the information on record at [place] for the Encounter. Date/Time Encounter Type Encounter Description Reason Pro vider Source Sep 11, 2023 09:30 AM Outpatient Encounter PHYSICAL THERAPY IHE Encounter Template Text not used by [place] Plan of Treatment: Future Appointments (+ 6 months) and Future Tests (+/- 45 days) The Plan of Treatment section includes future care activities for the patient [facility] [place] [facility] This section includes future appointments and [...] 07:30 AM AMBULATORY - REHAB MEDICIN [place] [facility] September 27, 2023 10:00 AM AMBULATORY - MEDICINE [place] [facility] October 18, 2023 03:30 PM AMBULATORY - REHAB MEDICIN [place] [facility] October 26, 2023 02:00 PM AMBULATORY - MEDICINE [facility] Nov 09, 2023 08:30 AM AMBULATORY - PSYCHIATRY [facility] Feb 09, 2024 08:30 AM AMBULATORY - PS[facility]CHIATRY [facility] Feb 12, 2024 01:30 PM AMBULATORY - NONE [place] [facility] Feb 19, 2024 08:30 AM AMBULATORY - MEDICINE [place] [facility] Feb 21, 2024 08:40 AM AMBULATORY - MEDICINE [place] [facility] Mar 01, 2024 10:30 AM AMBULATORY - MEDICINE [facility] Mar 12, 2024 09:00 AM AMBULATORY - MEDICINE [facility] [place] [place] [facility] Lab Results: +/- 30 days of the [...] Range Comment Sep 21, 2023 07:50 AM [place] [facility] [facility] [facility] HEMOGLOBIN A1C PANEL Specimen Type: BLOOD Comment: [...] Jun 29, 2023 02:06 PM Reporting Lab: [facility] [address] [address] Performing Lab: [facility] [address] [facility] [address] HEMOGLOBIN A1C 5.9 H 4.0-5.6 Sep 21, 2023 07:50 AM [facility] TSH Specimen Type: SERUM No comment entered. Ordering Provider: ARIEL JIMENEZ Report Released Date/Time: Jun 29, 2023 02:06 PM Reporting Lab: [facility] [address] [facility] [address] Performing Lab: [facility] [address] [facility] [facility] [address] TSH 1.49 u[IU]/mL 0.35-5.00 Sep 21, 2023 07:50 AM [facility] MICROALBUMIN CREATININE RATIO PANEL Specimen Type: URINE No comment entered. Ordering Provider: ARIEL JIMENEZ Report Released Date/Time: Jun 29, 2023 02:06 PM Reporting Lab: [facility] [address] [facility] [address] Performing Lab: [facility] [address] [facility] [address] MICROALBUMIN/C REATININE RATIO 8.8 mg/g 0-29.9 MICROALBUMIN,Q UANTITATIVE 0.5 mg/dL RR UNAVAIL CREATININE URINE 56.63 mg/dL Sep 21, 2023 07:50 AM [facility] BASIC METABOLIC PANEL (fasting) Specimen Type: SERUM No comment entered. Ordering Provider: ARIEL JIMENEZ Report Released Date/Time: Jun 29, 2023 02:06 PM Reporting Lab: [facility] [address] [facility] [address] Performing Lab: [facility] [place] [facility] [address] [facility] [address] UREA NITROGEN 19 mg/dL 7-25 GLUCOSE 113 [...] and tobacco- related health factors from the [place] facility where the Encounter took place. Current Smoking Status This section includes the most current smoking, or tobacco-related health factor, from the [place] facility where the Encounter took place. Date/Time Current Smoking Status Comment Facil ity Jun 22, 2023 09:00 AM VA-TOBACCO USE 30 YEARS OR MORE [facility] Tobacco Use History This section includes a history of the smoking, or tobacco-related health factors, that were collected on or before the date of the Encounter. The data comes from the [place] facility where the Encounter took place. Date/Time Smoking Status/Tobacco Use Comment F acility Jun 22, 2023 09:00 AM VA-TOBACCO USE 30 YEARS OR MORE [place] [facility] Jun 22, 2023 09:00 AM VA-TOBACCO USE ADVICE [place] [facility] Jun 22, 2023 09:00 AM VA-TOBACCO USE CLINICAL ASSOCIATE NO [place] [facility] Jun 22, 2023 09:00 AM VA-TOBACCO USE MED NO [place] [facility] Jun 22, 2023 09:00 AM VA-TOBACCO USER SOME DAYS [place] [facility] Jan 13, 2022 02:00 PM VA-TOBACCO NEVER USED [place] [facility] Jul 06, 2009 03:46 PM QUIT TOBACCO USE > 7 YEARS AGO [facility] [place] [facility] Advance Directives: All historical and current Section Date Range: From patient's date of to the date document was created. This section includes ALL of a patient's completed or amended [place] Advance and Rescinded Directives. The entries below indicate that a directive exists for the patient, but an actual copy is not included with this document. The data comes from all [place] facilities. Date Advance Directives Provider Source Jun 29, 2023 ADVANCE DIRECTIVE JAMES GALLO [facility] Sep 19, 2017 ADVANCE DIRECTIVE DINA MCGINNIS [facility] Encounter Notes: All associated encounter notes This section contains the clinical notes associated to the Encounter. Date/Time Encounter Note(s) Provider Source Sep 11, 2023 09:30 AM ADMINISTRATIVE NOTE: LOCAL TITLE: ADMINISTRATIVE NOTE STANDARD TITLE: ADMINISTRATIVE NOTE DATE OF NOTE: SEP 11, 2023@09:30 ENTRY DATE: SEP 11, 2023@09:30:52 AUTHOR: BRYCE CALVILLO EXP COSIGNER: URGENCY: STATUS: COMPLETED ADMINISTRATIVE NOTE Has ADDENDA Ortho script received for medial off loading kene brace for right knee Is going to be scanned into records, [facility] This appt can be scheduled by CLINICAL PROJECT MANAGER for measure/fitting of brace cc'ing MSA on here for scheduling thanks, /janine/ BRYCE CALVILLO PT PHYSICAL THERAPIST Signed: 09/11/2023 09:32 Receipt Acknowledged By: 09/11/2023 11:00 /janine/ KELLIE VARGAS LICENSE MEDICAL BILLING COORDINATOR 09/11/2023 10:07 /janine/ NO GOOD ADVANCED STOPE MINER 09/11/2023 ADDENDUM STATUS: COMPLETED LVM for to call and schedule appointment /janine/ NO GOOD ADVANCED STOPE MINER Signed: 09/11/2023 10:07 BRYCE CALVILLO [facility]
--- OUTSIDE RECORDS SUMMARY | 2024-06-03 09:00 | XMS_ITS ---
Author Name [facility] [place] Organization [place] Address [address] [place] [address] Care Team Providers Care Agricultural Education Instructor Name Role Phone ARIEL INFANTE Primary Care [...] Parra's Name Patient's Relationship to Policy Parra [facility] Dec 19, 2015 [id number] TANA NOG PATIENT [facility] Dec 19, 2015 [id number] [phone] LAKESHA NGO PATIENT [facility] May 29, 2012 [id number] [phone] TANA NGO PATIENT Selected Encounter This section includes the information on record at [place] for the Encounter. Date/Time Encounter Type Encounter Description Reason Provider Source Sep 07, 2023 07:21 AM Outpatient Encounter PRIMARY CARE/MEDICINE DEBBIE DOMINGUEZ Encounter Template Text not used by [place] Plan of Treatment: Future Appointments (+ 6 months) and Future Tests (+/- 45 days) The Plan of Treatment section includes future care activities for the patient [facility] all [place] [facility] This section includes future appointments and future orders which are active, pending or scheduled. Future Appointments This section includes appointments that were scheduled to occur 6 months from the date of the Encounter, up to a maximum of 20 appointments. The data comes from all [place] treatment facilities. Appointment Date/Time Appointment Type Appointme nt Facility Name Sep 22, 2023 07:30 AM AMBULATORY - REHAB MEDICIN E [place] [facility] [place] [facility] September 27, 2023 10:00 AM AMBULATORY - MEDICINE [place] [place] [facility] October 18, 2023 03:30 PM AMBULATORY - REHAB MEDICIN E [place] [facility] [place] [facility] October 26, 2023 02:00 PM AMBULATORY - MEDICINE [facility] Nov 09, 2023 08:30 AM AMBULATORY - PSYCHIATRY [facility] Feb 09, 2024 08:30 AM AMBULATORY - PSYCHIATRY [facility] Feb 12, 2024 01:30 PM AMBULATORY - NONE [place] [facility] [place] [facility] Feb 19, 2024 08:30 AM AMBULATORY - MEDICINE [place] [place] [facility] Feb 21, 2024 08:40 AM AMBULATORY - MEDICINE [place] [place] [facility] Mar 01, 2024 10:30 AM AMBULATORY - MEDICINE [facility] Lab Results: +/- 30 days of the encounter This section includes the Chemistry and Hematology Lab Results on record with [place] for the patient. Radiology Reports and Pathology Reports are provided separately, in subsequent sections. Lab Results This section contains the Chemistry/Hematology Results that were resulted 30 days before or 30 daysafter the date of the Encounter. Date/Time Source Result Type Result - Unit Interpretation Reference Range Comment Sep 21, 2023 07:50 AM [facility] HEMOGLOBIN A1C PANEL Specimen Type: BLOOD Comment: Values obtained from A1C measurements can vary. For atypical A1C assays, a reported value of 7.0 could actually be between 6.72 and 7.28 if measured by a reference method. A reported value of 9.0 could actually be between 8.73 and 9.27. Ref: http://www.ngs p.org/CAPdata. asp Ordering Provider: ARIEL INFANTE Report Released Date/Time: Jun 29, 2023 02:06 PM Reporting Lab: [facility]TR[facility] [address] [address] Performing Lab: [facility]ITALRLA[facility]ITALTRN [facility]US[facility] [address] [address] HEMOGLOBIN A1C 5.9 H 4.0-5.6 Sep 21, 2023 07:50 AM [facility]RE[facility]ERN [facility]ENTERUSEUPSTATE [facility] TSH Specimen Type: SERUM No comment entered. Ordering Provider: ARIEL INFANTE Report Released Date/Time: Jun 29, 2023 02:06 PM Reporting Lab: [facility]ITALREVERGRE[facility] CENTERN [facility]ENTERUSEUPSTATE [facility] [address] [address] Performing Lab: [facility]ENTERUSETS [address] [address] TSH 1.49 u[IU]/mL 0.35-5.00 Sep 21, 2023 07:50 AM [facility] MICROALBUMIN CREATININE RATIO PANEL Specimen Type: URINE No comment entered. Ordering Provider: ARIEL INFANTE Report Released Date/Time: Jun 29, 2023 02:06 PM Reporting Lab: [facility]ITALRLA[facility]PITALTRN [facility]ENTERUSETS [facility] [address] [address] Performing Lab: [facility]ITALREVERGRE[facility] CENTERN [facility] CENTERUSETS [address] [address] MICROALBUMIN/C REATININE RATIO 8.8 mg/g 0-29.9 MICROALBUMIN,Q UANTITATIVE 0.5 mg/dL RR UNAVAIL CREATININE URINE 56.63 mg/dL Sep 21, 2023 07:50 AM [facility] BASIC METABOLIC PANEL (fasting) Specimen Type: SERUM No comment entered. Ordering Provider: RAIEL INFANTE Report Released Date/Time: Jun 29, 2023 02:06 PM Reporting Lab: [facility] HOSPITALRL TRN [facility] CENTERUSETS [address] [address] Performing Lab: [facility]PITALREVERGRE[facility] CENTERN [facility]ENTERUSETS [address] [address] UREA NITROGEN 19 mg/dL 7-25 GLUCOSE 113 [...] and tobacco- related health factors from the [place] facility where the Encounter took place. Current Smoking Status This section includes the most current smoking, or tobacco-related health factor, from the [place] facility where the Encounter took place. Date/Time Current Smoking Status Comment Facil ity Jun 22, 2023 09:00 AM VA-TOBACCO USER SOME DAYS [facility]ENTERUSEUPSTATE [facility] Tobacco Use History This section includes a history of the smoking, or tobacco-related health factors, that were collected on or before the date of the Encounter. The data comes from the [place] facility where the Encounter took place. Date/Time Smoking Status/Tobacco Use Comment F acility Jun 22, 2023 09:00 AM VA-TOBACCO USE 30 YEARS OR MORE [facility] Jun 22, 2023 09:00 AM VA-TOBACCO USE ADVICE [place] [place] [facility] Jun 22, 2023 09:00 AM VA-TOBACCO USE PADDING MACHINE OPERATOR NO [facility] Jun 22, 2023 09:00 AM VA-TOBACCO USE MED NO [place] [place] [facility] Jun 22, 2023 09:00 AM VA-TOBACCO USER SOME DAYS [place] [facility] [place] [facility] Jan 13, 2022 02:00 PM VA-TOBACCO NEVER USED [place] [facility] Jul 06, 2009 03:46 PM QUIT TOBACCO USE > 7 YEARS AGO [place] [facility] Advance Directives: All historical and current Section Date Range: From patient's date of to the date document was created. This section includes ALL of a patient's completed or amended [place] Advance and Rescinded Directives. The entries below indicate that a directive exists for the patient, but an actual copy is not included with this document. The data comes from all [place] facilities. Date Advance Directives Provider Source Jun 29, 2023 ADVANCE DIRECTIVE GALLO,KIM M [facility] Sep 19, 2017 ADVANCE DIRECTIVE DINA MCGINNIS [facility] Encounter Notes: All associated encounter notes This section contains the clinical notes associated to the Encounter. Date/Time Encounter Note(s) Provider Source Sep 07, 2023 08:21 AM ADDENDUM: LOCAL TITLE: Addendum STANDARD TITLE: ADDENDUM DATE OF NOTE: SEP 07, 2023@08:21:45 ENTRY DATE: SEP 07, 2023@08:21:46 AUTHOR: DEBBIE DOMINGUEZ EXP COSIGNER: URGENCY: STATUS: COMPLETED Defer to PCP for requested renewal of medication /es/ DEBBIE DOMINGUEZ, RN REGISTERED NURSE Signed: 09/07/2023 08:22 Receipt Acknowledged By: 09/07/2023 13:00 /janine/ ARIEL INFANTE D.O. PHYSICIAN ====== --- Original Document --- 09/07/23 PRIMARY CARE SECURE MESSAGING: ------Original Message ------- Sent: 09/06/2023 07:22 PM ET From: LAKESHA SQUIRES To: Alex INFANTE _ PRIMARY [facility]ARE_[facility] Subject: Medication:Ozempic Good evening Doctor Naresh, Would you please reset my Ozempic script and refill? I just did my monthly outlay for my weekly injection and I have no other scripts in the refrigerator. I have one full, for the next 4 weeks. Thank you and have a wonderful week! Vijay Squires ------Original Message ------- Sent: 09/07/2023 08:21 AM ET From: DEBBIE DOMINGUEZ To: LAKESHA SQUIRES Subject: Medication:Ozempic Good Morning Mr. Squires, I will forward your request to Dr. Infante for renewal of Ozempic. Respectfully, Debbie Dominguez RN /janine/ DEBBIE DOMINGUEZ RN REGISTERED NURSE Signed: 09/07/2023 08:21 DEBBIE DOMINGUEZ [place] [facility] [place] [facility] Sep 07, 2023 07:21 AM PRIMARY CARE SECUR E MESSAGING: LOCAL TITLE: PRIMARY CARE SECURE MESSAGING STANDARD TITLE: PRIMARY CARE SECURE MESSAGING DATE OF NOTE: SEP 07, 2023@07:21 ENTRY DATE: SEP 07, 2023@08:21:28 AUTHOR: DEBBIE DOMINGUEZ EXP COSIGNER: URGENCY: STATUS: COMPLETED PRIMARY CARE SECURE MESSAGING Has ADDENDA ------Original Message ------- Sent: 09/06/2023 07:22 PM ET From: LAKESHA SQUIRES To: Alex INFANTE _ [facility] Subject: Medication:Ozempic Good evening Doctor Naresh, Would you please reset my Ozempic script and refill? I just did my monthly outlay for my weekly injection and I have no other scripts in the refrigerator. I have one full, for the next 4 weeks. Thank you and have a wonderful week! Vijay Squires ------Original Message ------- Sent: 09/07/2023 08:21 AM ET From: DEBBIE DOMINGUEZ To: LAKESHA SQUIRES Subject: Medication:Ozempic Good Morning Mr. Squires, I will forward your request to Dr. Infante for renewal of Ozempic. Respectfully, Debbie Dominguez RN /janine/ DEBBIE DOMINGUEZ RN REGISTERED NURSE Signed: 09/07/2023 08:21 09/07/2023 ADDENDUM STATUS: COMPLETED Defer to PCP for requested renewal of medication /es/ DEBBIE DOMINGUEZ, RN REGISTERED NURSE Signed: 09/07/2023 08:22 Receipt Acknowledged By: * AWAITING SIGNATURE * ARIEL INFANTE KARIN E [facility]
--- OUTSIDE RECORDS SUMMARY | 2024-06-03 09:00 | XMS_ITS ---
Author Name [place] Address [address] [place] [address] Care Team Providers Care Guest Services Assistant Name Role Phone ARIEL JIMENEZ Primary Care [...] Parra's Name Patient's Relationship to Policy Parra [facility] Dec 19, 2015 [id number] [phone] TANA NGO PATIENT [facility] Dec 19, 2015 [id number] LAKESHA NGO PATIENT [facility] May 29, 2012 [id number] TANA NGO PATIENT Selected Encounter This section includes the information on record at [place] for the Encounter. Date/Time Encounter Type Encounter Description Reason Provider Source Aug 24, 2023 09:00 AM HEARING AID FITTING/CHECKIN G AUDIOLOGY ICD-10-CM Z46.1 Encounter for fitting and adjustment of hearing aid SIA RAYO Sammy Encounter Template Text not used by [place] Assessments - Encounter Diagnoses This section includes the primary and secondary diagnoses documented for the Encounter. Date/Time Primary/Secondary Diagnosis Diagnosis Name Provider Source Aug 24, 2023 09:22 AM PRIMARY Encounter for fitting and adjustment of hearing aid LUI RAYO [place] [facility] Aug 24, 2023 09:22 AM SECONDARY Sensorineural hearing loss, bilateral LUI RAYO [facility] Plan of Treatment: Future Appointments (+ 6 months) and Future Tests (+/- 45 days) The Plan of Treatment section includes future care activities for the patient from all [place] [facility]. This section includes future appointments and future orders which are active, pending or scheduled. Future Appointments This section includes appointments that were scheduled to occur 6 months from the date of the Encounter, up to a maximum of 20 appointments. The data comes from all [place] treatment facilities. Appointment Date/Time Appointment Type Appointme nt Facility Name Aug 28, 2023 08:45 AM AMBULATORY - MEDICINE [place] [place] [facility] Aug 29, 2023 10:43 AM AMBULATORY - MEDICINE [facility] [place] [facility] Sep 22, 2023 07:30 AM AMBULATORY - REHAB MEDICIN E [place] [facility] [place] [facility] September 27, 2023 10:00 AM AMBULATORY - MEDICINE [place] [place] [facility] October 18, 2023 03:30 PM AMBULATORY - REHAB MEDICIN E [place] [facility] [place] [facility] October 26, 2023 02:00 PM AMBULATORY - MEDICINE [facility] Nov 09, 2023 08:30 AM AMBULATORY - PSYCHIATRY [facility] Feb 09, 2024 08:30 AM AMBULATORY - PSYCHIATRY [facility] Feb 12, 2024 01:30 PM AMBULATORY - NONE [place] [facility] [place] [facility] Feb 19, 2024 08:30 AM AMBULATORY - MEDICINE [place] [facility] Feb 21, 2024 08:40 AM AMBULATORY - MEDICINE [facility] Lab Results: +/- 30 days of the encounter This section includes the Chemistry and Hematology Lab Results on record with [place] for the patient. Radiology Reports and Pathology Reports are provided separately, in subsequent sections. Lab Results This section contains the Chemistry/Hematology Results that were resulted 30 days before or 30 daysafter the date of the Encounter. Date/Time Source Result Type Result - Unit Interpretation Reference Range Comment Sep 21, 2023 07:50 AM [facility] HEMOGLOBIN A1C PANEL Specimen Type: BLOOD Comment: [...] Jun 29, 2023 02:06 PM Reporting Lab: [address] [address] Performing Lab: [address] [address] HEMOGLOBIN A1C 5.9 H 4.0-5.6 Sep 21, 2023 07:50 AM [facility] TSH Specimen Type: SERUM No comment entered. Ordering Provider: ARIEL JIMENEZ Report Released Date/Time: Jun 29, 2023 02:06 PM Reporting Lab: [facility] [address] Performing Lab: [facility] [address] TSH 1.49 u[IU]/mL 0.35-5.00 Sep 21, 2023 07:50 AM [facility] MICROALBUMIN CREATININE RATIO PANEL Specimen Type: URINE No comment entered. Ordering Provider: ARIEL JIMENEZ Report Released Date/Time: Jun 29, 2023 02:06 PM Reporting Lab: [facility] [address] Performing Lab: [facility] [address] MICROALBUMIN/C REATININE RATIO 8.8 mg/g 0-29.9 MICROALBUMIN,Q UANTITATIVE 0.5 mg/dL RR UNAVAIL CREATININE URINE 56.63 mg/dL Sep 21, 2023 07:50 AM [facility] BASIC METABOLIC PANEL (fasting) Specimen Type: SERUM No comment entered. Ordering Provider: ARIEL JIMENEZ Report Released Date/Time: Jun 29, 2023 02:06 PM Reporting Lab: [facility] [address] [address] Performing Lab: [facility] [address] [address] UREA NITROGEN 19 mg/dL 7-25 GLUCOSE 113 [...] and tobacco- related health factors from the [place] facility where the Encounter took place. Current Smoking Status This section includes the most current smoking, or tobacco-related health factor, from the [place] facility where the Encounter took place. Date/Time Current Smoking Status Comment [place] it[place] Jun 22, 2023 09:00 AM VA-TOBACCO USE 30 YEARS OR MORE [facility] Tobacco Use History This section includes a history of the smoking, or tobacco-related health factors, that were collected on or before the date of the Encounter. The data comes from the [place] facility where the Encounter took place. Date/Time Smoking Status/Tobacco Use Comment F acility Jun 22, 2023 09:00 AM VA-TOBACCO USE 30 YEARS OR MORE [facility] Jun 22, 2023 09:00 AM VA-TOBACCO USE ADVICE [facility] Jun 22, 2023 09:00 AM VA-TOBACCO USE NURSE AIDE NO [facility] Jun 22, 2023 09:00 AM [facility]ACCO [facility] Jun 22, 2023 09:00 AM VA-TOBACCO USER SOME DAYS [facility] Jan 13, 2022 02:00 PM VA-TOBACCO NEVER USED [facility] Jul 06, 2009 03:46 PM QUIT TOBACCO USE > 7 YEARS AGO [facility] Advance Directives: All historical and current Section Date Range: From patient's date of to the date document was created. This section includes ALL of a patient's completed or amended [place] Advance and Rescinded Directives. The entries below indicate that a directive exists for the patient, but an actual copy is not included with this document. The data comes from all [place] facilities. Date Advance Directives Provider Source Jun 29, 2023 ADVANCE DIRECTIVE JAMES GALLO [facility] Sep 19, 2017 ADVANCE DIRECTIVE DINA MCGINNIS [facility] Encounter Notes: All associated encounter notes This section contains the clinical notes associated to the Encounter. Date/Time Encounter Note(s) Provider Source Aug 24, 2023 07:20 AM AUDIOLOGY E & M NOTE: LOCAL TITLE: AUDIOLOGY CLINIC STANDARD TITLE: AUDIOLOGY E & M NOTE DATE OF NOTE: AUG 24, 2023@07:20 ENTRY DATE: AUG 24, 2023@07:20:25 AUTHOR: SIA RAYO COSIGNER: URGENCY: STATUS: COMPLETED Dx CODE: Z46.1-Encounter for Fitting/Adjusting Hearing Aid(s); H90.3- Sensorineural Hearing Loss, Bilateral APPOINTMENT TYPE: Hearing Aid Programming HISTORY/BACKGROUND: The patient was seen for a hearing aid follow-up appointment, unaccompanied. He was fit with Phonak [employer]ude[employer] L90-RL RICs on 08/18/23. He reports today speech sounds lispy/slushy. HEARING AID PROGRAMMING: Hearing aids were connected to [employer] and sound recover 2 was disabled. reported satisfaction with sound quality, no further adjustments requested. Per request, a wax guard order was placed. PLAN/RECOMMENDATION(S): 1. Follow up as needed. * Patient Education Education provided on the following topics: Hearing aids Education provided to: P Response to Education: VU Menjivar Patient P Family F Significant Other SO Verbalizes Understanding VU Returns Demonstration RD Performs Independently PI Lacks Comprehension LC Refused Education RE Not Applicable NA * /janine/ SIA RAYO STAFF MACHINE PRINTER HOSE Signed: 08/24/2023 09:22 SIA RAYO [facility]
--- OUTSIDE RECORDS SUMMARY | 2024-06-03 09:00 | XMS_ITS ---
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 Date/Time Encounter Type Encounter Description Reason Provider Source Sep 25, 2023 09:17 AM Outpatient Encounter PRIMARY CARE/MEDICINE JAXSON HARDEN Encounter Template Text not used by [place] Plan of Treatment: Future Appointments (+ 6 months) and Future Tests (+/- 45 days) The Plan of Treatment section includes [facility] care [facility] the [facility] [place] [facility] This section includes future appointments [...] - MEDICINE [place] [facility] [facility] October 18, 2023 03:30 PM AMBULATORY - [place] [facility]ICIN [place] [facility] [place] [facility] October 26, 2023 02:00 PM AMBULATORY - MEDICINE [facility] Nov 09, 2023 08:30 AM AMBULATORY - PSYCHIATRY [facility] Feb 09, 2024 08:30 AM AMBULATORY - PSYCHIATRY [facility] Feb 12, 2024 01:30 PM AMBULATORY - NONE [place] [facility] [facility] Feb 19, 2024 08:30 AM AM[place]ULATORY [place]IC[place] [facility] [place] [facility] Feb 21, 2024 08:40 AM AM[place]ULATORY [place]IC[place] [facility] [facility] Mar 01, 2024 10:30 AM AMBULATORY - MEDICINE [facility] Mar 12, 2024 09:00 AM AMBULATORY [place]ICINE [place] [facility] [facility] Mar 14, 2024 02:00 PM AMBULATORY [place]ICINE [place] [facility] [facility] Mar 25, 2024 08:00 AM AMBULATORY - MEDICINE [facility] [place] [facility] Lab Results: +/- 30 days of the encounter This section includes the Chemistry and Hematology Lab Results on record with [place] for the patient. Radiology Reports and Pathology Reports are provided separately, in subsequent sections. Lab Results This section contains the Chemistry/Hematology Results that were resulted 30 days before or 30 daysafter the date of the Encounter. Date/Time Source Result Type Result - Unit Interpretation Reference Range Comment Sep 21, 2023 07:50 AM [place] [facility] H[facility] A1C PANEL Specimen Type: BLOOD [...] Jun 29, 2023 02:06 PM Reporting Lab: [address] [address] Performing Lab: [facility] [address] HEMOGLOBIN A1C 5.9 H 4.0-5.6 Sep 21, 2023 07:50 AM [facility] TSH Specimen Type: SERUM No comment entered. Ordering Provider: ARIEL INFANTE Report Released Date/Time: Jun 29, 2023 02:06 PM Reporting Lab: [address] [address] Performing Lab: [facility] [address] TSH 1.49 u[IU]/mL 0.35-5.00 Sep 21, 2023 07:50 AM [facility] MICROALBUMIN CREATININE RATIO PANEL Specimen Type: URINE No comment entered. Ordering Provider: ARIEL INFANTE Report Released Date/Time: Jun 29, 2023 02:06 PM Reporting Lab: [facility] [address] Performing Lab: [facility] [address] MICROALBUMIN/C REATININE RATIO 8.8 mg/g 0-29.9 MICROALBUMIN,Q UANTITATIVE 0.5 mg/dL RR UNAVAIL CREATININE URINE 56.63 mg/dL Sep 21, 2023 07:50 AM [facility] BASIC METABOLIC PANEL (fasting) Specimen Type: SERUM No comment entered. Ordering Provider: ARIEL INFANTE Report Released Date/Time: Jun 29, 2023 02:06 PM Reporting Lab: [facility] [address] [address] Performing Lab: [place] [facility] [facility] [address] [address] UREA NITROGEN 19 mg/dL 7-25 GLUCOSE 113 [...] 2023 09:00 AM VA-TOBACCO USER SOME [facility]YS [facility] Tobacco Use History This section includes a history of the smoking, or tobacco-related health factors, that were collected on or before the date of the Encounter. The data comes from the [place] facility where the Encounter took place. 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 [facility] [place] [facility] Jun 22, 2023 09:00 AM VA-TOBACCO USE MED NO [place] [facility] [facility] Jun 22, 2023 09:00 AM VA-TOBACCO USER SOME DAYS [place] [facility] [place] [facility] Jan 13, 2022 02:00 PM VA-TOBACCO NEVER USED [place] [facility] [place] [facility] Jul 06, 2009 03:46 PM QUIT TOBACCO USE > 7 YEARS AGO [place] [facility] Advance Directives: All historical and current [...] Jun 29, 2023 ADVANCE DIRECTIVE JAMES GALLO [facility] Sep 19, 2017 ADVANCE DIRECTIVE MCGINNISDINA VELA [facility] Encounter Notes: All associated encounter notes This section contains the clinical notes associated to the Encounter. Date/Time Encounter Note(s) Provider Source Sep 25, 2023 10:17 AM ADDENDUM: LOCAL TITLE: Addendum STANDARD TITLE: ADDENDUM DATE OF NOTE: SEP 25, 2023@10:17:41 ENTRY DATE: SEP 25, 2023@10:17:42 AUTHOR: JAXSON HARDEN EXP COSIGNER: URGENCY: STATUS: COMPLETED following med refills needed : OUTPT HYDROCHLOROTHIAZIDE 12.5MG CAP (Status = Active) TAKE ONE CAPSULE BY MOUTH DAILY Rx# [id number] Last Released: 05/25/23 Qty/Days Supply: 90/90 Rx Expiration Date: 10/14/23 Refills Remainin OUTPT LISINOPRIL 5MG TAB (Status = Active) TAKE ONE TABLET BY MOUTH DAILY TO CONTROL BLOOD PRESSURE Rx# [id number] Last Released: 07/27/23 Qty/Days Supply: 90/90 Rx Expiration Date: 10/14/23 Refills Remainin OUTPT ACCU-CHEK GUIDE (GLUCOSE) TEST STRIP (Status = Active) USE 1 STRIP TO TEST BLOOD SUGARS ONCE DAILY Rx# [id number] Last Released: 08/29/23 Qty/Days Supply: 100/90 Rx Expiration Date: 10/17/23 Refills Remainin Indication: DIABETES OUTPT NEEDLE,PEN 31G,8MM (Status = Active) USE 1 NEEDLE SUBCUTANEOUSLY ONCE DAILY FOR USE WITH INSULIN PENS Rx# [id number] Last Released: 08/08/23 Qty/Days Supply: 100/90 Rx Expiration Date: 02/24/24 Refills Remainin /janine/ JAXSON HARDEN LPN License Practical Nurse Signed: 09/25/2023 10:19 Receipt Acknowledged By: 09/26/2023 14:10 /janine/ ARIEL INFANTE D.O. PHYSICIAN --- Original Document --- 09/25/23 PRIMARY CARE SECURE MESSAGING: ------Original Message - Sent: 09/23/2023 06:56 AM ET From: LAKESHA SQUIRES To: Alex INFANTE _ PRIMARY CARE_[facility] Subject: Medication:Refill Good Morning Dr Infante, I tried to refill my hydrochlorothiazide and bupropion and was unable on both. Can you please address this? Also, if you've been following the issues that I have with my back, I had an adjustment yesterday at a chiropractor and it is 100% better. Still irritated I'm sure from being inflamed but believe will be what I used to address the pain for the time being. Thank you Vijay ------Original Message - Sent: 09/25/2023 10:17 AM ET From: JAXSON HARDEN To: LAKESHA SQUIRES Subject: Medication:Refill Good morning In regards to your bupropion, it looks like a request for refill has already been made, it will be filled in the week of October 09 and mailed out. I will put a request for hydrochlorothiazide as there is no more refills left, also reviewing your meds you have no more refills left on lisinopril, so I will request refills on that as well. Are you also running out of your glucose test strips and needle pens? there is no more refills left on those either. /janine/ JAXSON HARDEN LPN License Practical Nurse Signed: 09/25/2023 10:17 JAXSON HARDEN [place] [facility] [facility] Sep 25, 2023 09:17 AM PRIMARY CARE SECURE MESSAGING: LOCAL TITLE: PRIMARY CARE SECURE MESSAGING STANDARD TITLE: PRIMARY CARE SECURE MESSAGING DATE OF NOTE: SEP 25, 2023@09:17 ENTRY DATE: SEP 25, 2023@10:17:27 AUTHOR: JAXSON HARDEN EXP COSIGNER: URGENCY: STATUS: COMPLETED PRIMARY CARE SECURE MESSAGING Has ADDENDA ------Original Message - Sent: 09/23/2023 06:56 AM ET From: LAKESHA SQUIRES To: Alex INFANTE _ PRIMARY CARE_[facility] Subject: Medication:Refill Good Morning Dr Infante, I tried to refill my hydrochlorothiazide and bupropion and was unable on both. Can you please address this? Also, if you've been following the issues that I have with my back, I had an adjustment yesterday at a chiropractor and it is 100% better. Still irritated I'm sure from being inflamed but believe will be what I used to address the pain for the time being. Thank you Vijay ------Original Message - Sent: 09/25/2023 10:17 AM ET From: JAXSON HARDEN To: LAKESHA SQUIRES Subject: Medication:Refill Good morning In regards to your bupropion, it looks like a request for refill has already been made, it will be filled in the week of October 09 and mailed out. I will put a request for hydrochlorothiazide as there is no more refills left, also reviewing your meds you have no more refills left on lisinopril, so I will request refills on that as well. Are you also running out of your glucose test strips and needle pens? there is no more refills left on those either. /janine/ JAXSON HARDEN LPN License Practical Nurse Signed: 09/25/2023 10:17 09/25/2023 ADDENDUM STATUS: COMPLETED following med refills needed : OUTPT HYDROCHLOROTHIAZIDE 12.5MG CAP (Status = Active) TAKE ONE CAPSULE BY MOUTH DAILY Rx# [id number] Last Released: 05/25/23 Qty/Days Supply: 90/90 Rx Expiration Date: 10/14/23 Refills Remainin OUTPT LISINOPRIL 5MG TAB (Status = Active) TAKE ONE TABLET BY MOUTH DAILY TO CONTROL BLOOD PRESSURE Rx# [id number] Last Released: 07/27/23 Qty/Days Supply: 90 Rx Expiration Date: 10/14/23 Refills Remainin OUTPT ACCU-CHEK GUIDE (GLUCOSE) TEST STRIP (Status = Active) USE 1 STRIP TO TEST BLOOD SUGARS ONCE DAILY Rx# [id number] Last Released: 08/29/23 Qty/Days Supply: 100/90 Rx Expiration Date: 10/17/23 Refills Remainin Indication: DIABETES OUTPT NEEDLE,PEN 31G,8MM (Status = Active) USE 1 NEEDLE SUBCUTANEOUSLY ONCE DAILY FOR USE WITH INSULIN PENS Rx# [id number] Last Released: 08/08/23 Qty/Days Supply: 100/90 Rx Expiration Date: 02/24/24 Refills Remainin /janine/ JAXSON HARDEN LPN License Practical Nurse Signed: 09/25/2023 10:19 Receipt Acknowledged By: * AWAITING SIGNATURE * ARIEL INFANTE AGN[facility]KA [facility]
--- OUTSIDE RECORDS SUMMARY | 2024-06-03 09:00 | XMS_ITS ---
Author Name [facility] [place] [facility] [place] [facility] [facility] [place] Address [address] [place] [address] Care Team Providers Care Supervisor Gear Repair Name Role Phone ARIEL INFANTE Primary Care [...] Parra's Name Patient's Relationship to Policy Parra [facility] Dec 19, 2015 [id number] [id number] [phone] [employer] PATIENT [facility] Dec 19, 2015 [id number] [phone] LAKESHA [employer] PATIENT [facility] May 29, 2012 [id number] [phone] [employer] PATIENT Selected Encounter This section includes the information on record at [place] for the Encounter. Date/Time Encounter Type Encounter Description Reason Provider Source Sep 13, 2023 07:55 AM Outpatient Encounter PRIMARY CARE/MEDICINE YOGI GOODWIN Encounter Template Text not used by [place] Plan of Treatment: Future Appointments (+ 6 months) and Future Tests (+/- 45 days) The Plan of Treatment section includes future care activities [facility] the [facility] [place] [facility] This section includes future appointments and future orders which are active, pending or scheduled. Future Appointments This section includes appointments that were scheduled to occur 6 months from the date of the Encounter, up to a maximum of 20 appointments. The data comes from all [place] treatment facilities. Appointment Date/Time Appointment Type Appointme nt Facility Name Sep 22, 2023 07:30 AM AMBULATORY - [place] MEDICIN [place] [facility] [place] [facility] September 27, 2023 10:00 AM AMBULATORY - MEDICINE [place] [facility] [place] [facility] October 18, 2023 03:30 PM AMBULATORY - REHAB MEDICIN [place] [facility] [place] [facility] October 26, 2023 02:00 PM AMBULATORY - MEDICINE [facility] Nov 09, 2023 08:30 AM AMBULATORY - PSYCHIATRY [facility] Feb 09, 2024 08:30 AM AMBULATORY - PSYCHIATRY [facility] Feb 12, 2024 01:30 PM AMBULATORY - NONE [place] [facility] [place] [facility] Feb 19, 2024 08:30 AM AMBULATORY - MEDICINE [place] [facility] [place] [facility] Feb 21, 2024 08:40 AM AMBULATORY - MEDICINE [place] [facility] [place] [facility] Mar 01, 2024 10:30 AM AMBULATORY - MEDICINE [facility] Mar 12, 2024 09:00 AM AMBULATORY - MEDICINE [place] [facility] [place] [facility] Mar 14, 2024 02:00 PM AMBULATORY - MEDICINE [place] [facility] [place] [facility] Lab Results: +/- 30 days of the encounter This section includes the Chemistry and Hematology Lab Results on record with [place] for the patient. Radiology Reports and Pathology Reports are provided separately, in subsequent sections. Lab Results This section contains the Chemistry/Hematology Results that were resulted 30 days before or 30 daysafter the date of the Encounter. Date/Time Source Result Type Result - Unit Interpretation Reference Range Comment Sep 21, 2023 07:50 AM [place] [facility] HEMO[facility] A1C PANEL Specimen Type: BLOOD [...] Jun 29, 2023 02:06 PM [facility] [address] Performing [facility]: [facility] [address] HEMOGLOBIN A1C 5.9 H 4.0-5.6 Sep 21, 2023 07:50 AM [facility] TSH Specimen Type: SERUM No comment entered. Ordering Provider: ARIEL INFANTE Report Released Date/Time: Jun 29, 2023 02:06 PM Reporting [facility] [address] Performing [facility] [address] [facility] [address] TSH 1.49 u[IU]/mL 0.35-5.00 Sep 21, 2023 07:50 AM [facility] MICROALBUMIN CREATININE RATIO PANEL Specimen Type: URINE No comment entered. Ordering Provider: ARIEL INFANTE Report Released Date/Time: Jun 29, 2023 02:06 PM Reporting [facility] [address] Performing [facility]: [facility] [address] MICROALBUMIN/C REATININE RATIO 8.8 mg/g 0-29.9 MICROALBUMIN,Q UANTITATIVE 0.5 mg/dL RR UNAVAIL CREATININE URINE 56.63 mg/dL Sep 21, 2023 07:50 AM [facility] BASIC METABOLIC PANEL (fasting) Specimen Type: SERUM No comment entered. Ordering Provider: ARIEL INFANTE Report Released Date/Time: Jun 29, 2023 02:06 PM Reporting [facility] [place] [facility] [address] [facility] [address] Performing Lab: [facility] [address] [facility] [address] UREA NITROGEN 19 mg/dL 7-25 GLUCOSE 113 [...] and tobacco- related health factors from the [place] facility where the Encounter took place. Current Smoking Status This section includes the most current smoking, or tobacco-related health factor, from the [place] facility where the Encounter took place. Date/Time Current Smoking Status Comment Facil ity Jun 22, 2023 09:00 AM VA-TOBACCO DOESNT USE WI 30 MIN WAKEUP [facility] Tobacco Use History This section includes a history of the smoking, or tobacco-related health factors, that were collected on or before the date of the Encounter. The data comes from the [place] facility where the Encounter took place. Date/Time Smoking Status/Tobacco Use Comment F acility Jun 22, 2023 09:00 AM VA-TOBACCO USE 30 YEARS OR MORE [place] [facility] [place] [facility] Jun 22, 2023 09:00 AM VA-TOBACCO USE ADVICE [facility] Jun 22, 2023 09:00 AM VA-TOBACCO USE DIRECTOR VISUAL NO [place] [facility] [place] [facility] Jun 22, 2023 09:00 AM VA-TOBACCO USE MED NO [facility] Jun 22, 2023 09:00 AM VA-TOBACCO USER SOME DAYS [place] [facility] [place] [facility] Jan 13, 2022 02:00 PM VA-TOBACCO NEVER USED [facility] [place] [facility] Jul 06, 2009 03:46 PM QUIT TOBACCO USE > 7 YEARS AGO [facility] Advance Directives: All historical and current Section Date Range: From patient's date of to the date document was created. This section includes ALL of a patient's completed or amended [place] Advance and Rescinded Directives. The entries below indicate that a directive exists for the patient, but an actual copy is not included with this document. The data comes from all [place] facilities. Date Advance Directives Provider Source Jun 29, 2023 ADVANCE DIRECTIVE GALLO,KIM M [facility] Sep 19, 2017 ADVANCE DIRECTIVE MCGINNISDINA YANCEY [facility] Encounter Notes: All associated encounter notes This section contains the clinical notes associated to the Encounter. Date/Time Encounter Note(s) Provider Source Sep 25, 2023 11:28 AM ADDENDUM: LOCAL TITLE: Addendum STANDARD TITLE: ADDENDUM DATE OF NOTE: SEP 25, 2023@11:28:11 ENTRY DATE: SEP 25, 2023@11:28:12 AUTHOR: YOGI GOODWIN EXP COSIGNER: URGENCY: STATUS: COMPLETED ALERT TO PCP CYNDI /janine/ YOGI GOODWIN RN REGISTERED NURSE Signed: 09/25/2023 11:28 Receipt Acknowledged By: 09/25/2023 16:10 /janine/ ARIEL INFANTE D.O. PHYSICIAN ====== --- Original Document --- 09/25/23 PRIMARY CARE SECURE MESSAGING: ------Original Message ------- Sent: 09/23/2023 06:49 AM ET From: LAKESHA SQUIRES To: Alex INFANTE _ PRIMARY [facility]ARE_[facility] Subject: Appointment:Pain right butt cheek Good morning Leida, I went to the chiropractor yesterday and he said my right side was an entire centimeters higher than my left and adjusted my back. The pain is much much less now just irritated with the inflamed for a day or two. I'm gonna work on it with just stretching exercise and Aleve. Thank you for the quick response. Have a great weekend. Vijay ------Original Message ------- Sent: 09/25/2023 10:21 AM ET From: JAXSON HARDEN To: LAKESHA SQUIRES Subject: Appointment:Pain right butt cheek I will forward your message to Leida Villegas [facility] /es/ JAXSON HARDEN LPN License Practical Nurse Signed: 09/25/2023 10:21 Receipt Acknowledged By: 09/25/2023 11:26 /janine/ YOGI GOODWIN, RN REGISTERED NURSE YOGI GOODWIN [place] [facility] [place] [facility] Sep 25, 2023 09:21 AM PRIMARY CARE SECUR E MESSAGING: LOCAL TITLE: PRIMARY CARE SECURE MESSAGING STANDARD TITLE: PRIMARY CARE SECURE MESSAGING DATE OF NOTE: SEP 25, 2023@09:21 ENTRY DATE: SEP 25, 2023@10:21:44 AUTHOR: JAXSON HARDEN EXP COSIGNER: URGENCY: STATUS: COMPLETED PRIMARY CARE SECURE MESSAGING Has ADDENDA ------Original Message ------- Sent: 09/23/2023 06:49 AM ET From: LAKESHA SQUIRES To: Alex INFANTE _ [facility]IMARY [facility] Subject: Appointment:Pain right butt cheek Good morning Leida, I went to the chiropractor yesterday and he said my right side was an entire centimeters higher than my left and adjusted my back. The pain is much much less now just irritated with the inflamed for a day or two. I'm gonna work on it with just stretching exercise and Aleve. Thank you for the quick response. Have a great weekend. Vijay ------Original Message ------- Sent: 09/25/2023 10:21 AM ET From: JAXSON HARDEN To: LAKESHA SQUIRES Subject: Appointment:Pain right butt cheek I will forward your message to Leida Villegas Primary [facility] /janine/ JXASON HARDEN LPN License Practical Nurse Signed: 09/25/2023 10:21 Receipt Acknowledged By: 09/25/2023 11:26 /jeff GOODWIN RN REGISTERED NURSE 09/25/2023 ADDENDUM STATUS: COMPLETED ALERT TO PCP FYI /jeff GOODWIN RN REGISTERED NURSE Signed: 09/25/2023 11:28 Receipt Acknowledged By: * AWAITING SIGNATURE * ARIEL INFANTE [place] [facility] Sep 13, 2023 09:04 AM ADDENDUM: LOCAL TITLE: Addendum STANDARD TITLE: ADDENDUM DATE OF NOTE: SEP 13, 2023@09:04:38 ENTRY DATE: SEP 13, 2023@09:04:39 AUTHOR: YOGI GOODWIN EXP COSIGNER: URGENCY: STATUS: COMPLETED Alert to [facility] for scheduling. Pt requires an appointment with Dr. Infante for next week. He is available any day except for Monday /jeff GOODWIN RN REGISTERED NURSE Signed: 09/13/2023 09:05 Receipt Acknowledged By: 09/13/2023 09:56 /jeff GALVEZ [facility] ====== --- Original Document --- 09/13/23 PRIMARY CARE SECURE MESSAGING: ------Original Message ------- Sent: 09/13/2023 07:54 AM ET From: LAKESHA SQUIRES To: Alex INFANTE _ [facility]IMARY [facility]ARE_[facility] Subject: Appointment:Pain right butt cheek Good Morning, I had a chiropractic adjustment to address the lower back issue, and i did lessen the butt cheek/ radiating pain down right leg, but its no where near tolerable. I've been stretching it often and using Motrin/Tylonol. However, I want to be sure this isn't something more. Driving for more than 30 minutes has become painful. I'm wondering if it's because the right knee is being favored so much, it's messing with my gait and causing this pain. I'd like to come in, next week. Im home monday and monday is the only bad day. Thank you. Vijay ------Original Message ------- Sent: 09/13/2023 08:55 AM ET From: YOGI GOODWIN To: TAVIA LAKESHA J Subject: Appointment:Pain right butt cheek Good Morning Mr. Squires, I'm sorry to hear that you are having increasing pain. I will alert our [facility] to your need for an appointment next week, as I understand it, any day except Monday. Our [facility] will reach out to you shortly for scheduling. If you have any further worsening you can come in to sick call. Also if you were in need of the Emergency Department for care, please remember to call the [place] [facility] Phone number within 72 hours of going to the hospital. Respectfully, Yogi Goodwin RN /janine/ YOGI GOODWIN RN REGISTERED NURSE Signed: 09/13/2023 09:02 YOGI GOODWIN [place] [facility] [place] [facility] Sep 13, 2023 08:00 AM PRIMARY CARE SECUR E MESSAGING: LOCAL TITLE: PRIMARY CARE SECURE MESSAGING STANDARD TITLE: PRIMARY CARE SECURE MESSAGING DATE OF NOTE: SEP 13, 2023@08:00 ENTRY DATE: SEP 13, 2023@09:02:12 AUTHOR: YOGI GOODWIN EXP COSIGNER: URGENCY: STATUS: COMPLETED ------Original Message ------- Sent: 09/13/2023 09:00 AM ET From: YOGI GOODWIN To: LAKESHA SQUIRES Subject: Appointment:Pain right butt cheek good Morning Mr. Squires, I am sorry to hear that you are having worsening pain. I will alert our [facility] to your need of an appointment next week, as I understand, any day except for Monday. Our [facility] will be reaching out to you shortly for scheduling. If you become worse or pain is intolerable you can come in to sick call Monday through Monday 8:00 to 3:00 p.m. If you have need for use of the Emergency Department please remember to call the [place] [facility] phone number [phone] within 72 hours. Respectfully, Yogi Goodwin RN /janine/ YOGI GOODWIN RN REGISTERED NURSE Signed: 09/13/2023 09:02 YOGI GOODWIN [place] [facility] [place] [facility] Sep 13, 2023 07:56 AM PRIMARY CARE SECUR E MESSAGING: LOCAL TITLE: PRIMARY CARE SECURE MESSAGING STANDARD TITLE: PRIMARY CARE SECURE MESSAGING DATE OF NOTE: SEP 13, 2023@07:56 ENTRY DATE: SEP 13, 2023@09:02:12 AUTHOR: YOGI GOODWIN EXP COSIGNER: URGENCY: STATUS: COMPLETED ------Original Message ------- Sent: 09/13/2023 07:54 AM ET From: LAKESHA SQUIRES To: Alex INFANTE _ PRIMARY [facility]ARE_[facility] Subject: Appointment:Pain right butt cheek Good Morning, I had a chiropractic adjustment to address the lower back issue, and i did lessen the butt cheek/ radiating pain down right leg, but its no where near tolerable. I've been stretching it often and using Motrin/Tylonol. However, I want to be sure this isn't something more. Driving for more than 30 minutes has become painful. I'm wondering if it's because the right knee is being favored so much, it's messing with my gait and causing this pain. I'd like to come in, next week. Im home monday and monday is the only bad day. Thank you. Vijay ------Original Message ------- Sent: 09/13/2023 08:55 AM ET From: YOGI GOODWIN To: LAKESHA SQUIRES Subject: Appointment:Pain right butt cheek Good Morning Mr. Squires, I'm sorry to hear that you are having increasing pain. I will alert our [facility] to your need for an appointment next week, as I understand it, any day except Monday. Our [facility] will reach out to you shortly for scheduling. If you have any further worsening you can come in to sick call. Also if you were in need of the Emergency Department for care, please remember to call the [place] [facility] Phone number within 72 hours of going to the hospital. Respectfully, Yogi Goodwin RN /janine/ YOGI GOODWIN RN REGISTERED NURSE Signed: 09/13/2023 09:02 YOGI GOODWIN [place] [facility] [place] [facility] Sep 13, 2023 07:55 AM PRIMARY CARE SECUR E MESSAGING: LOCAL TITLE: PRIMARY CARE SECURE MESSAGING STANDARD TITLE: PRIMARY CARE SECURE MESSAGING DATE OF NOTE: SEP 13, 2023@07:55 ENTRY DATE: SEP 13, 2023@09:02:12 AUTHOR: YOGI GOODWIN EXP COSIGNER: URGENCY: STATUS: COMPLETED PRIMARY CARE SECURE MESSAGING Has ADDENDA ------Original Message ------- Sent: 09/13/2023 07:54 AM ET From: LAKESHA SQUIRES To: Alex INFANTE _ PRIMARY CARE_[facility] Subject: Appointment:Pain right butt cheek Good Morning, I had a chiropractic adjustment to address the lower back issue, and i did lessen the butt cheek/ radiating pain down right leg, but its no where near tolerable. I've been stretching it often and using Motrin/Tylonol. However, I want to be sure this isn't something more. Driving for more than 30 minutes has become painful. I'm wondering if it's because the right knee is being favored so much, it's messing with my gait and causing this pain. I'd like to come in, next week. Im home monday and monday is the only bad day. Thank you. Vijay ------Original Message ------- Sent: 09/13/2023 08:55 AM ET From: YOGI GOODWIN To: LAKESHA SQUIRES Subject: Appointment:Pain right butt cheek Good Morning Mr. Squires, I'm sorry to hear that you are having increasing pain. I will alert our [facility] to your need for an appointment next week, as I understand it, any day except Monday. Our [facility] will reach out to you shortly for scheduling. If you have any further worsening you can come in to sick call. Also if you were in need of the Emergency Department for care, please remember to call the [place] [facility] Phone number within 72 hours of going to the hospital. Respectfully, Yogi Goodwin RN /janine/ YOGI GOODWIN RN REGISTERED NURSE Signed: 09/13/2023 09:02 09/13/2023 ADDENDUM STATUS: COMPLETED Alert to [facility] for scheduling. Pt requires an appointment with Dr. Infante for next week. He is available any day except for Monday /janine/ YOGI GOODWIN RN REGISTERED NURSE Signed: 09/13/2023 09:05 Receipt Acknowledged By: 09/13/2023 09:56 /janine/ PRADEEP MONTEMAYOR 09/13/2023 ADDENDUM STATUS: COMPLETED TRINAA TRIED CALLING ON TELEPHONE HOWEVER THE CALL WAS NOT ANSWERED BUT A VOICEMAIL WAS LEFT. [facility] RELAYED TO ON MESSAGE THAT NEXT WEEK IS CURRENTLY FULLY BOOKED,BUT THAT DOES HAVE AN APPT SCHEDULED ON September. /jeff MONTEMAYOR Signed: 09/13/2023 10:07 YOGI GOODWIN [place] [facility]
--- OUTSIDE RECORDS SUMMARY | 2024-06-03 09:00 | XMS_ITS | Encounter Summary ---
Author Name [facility] [place] Address [address] [place] [address] Care Team Providers Care Investment Director Name Role Phone ARIEL JIMENEZ Primary Care [...] Parra's Name Patient's Relationship to Policy Parra [facility] Dec 19, 2015 [id number] TANA [employer] PATIENT [facility] Dec 19, 2015 [id number] LAKESHA NGO [facility] May 29, 2012 [id number] [employer] PATIENT Selected Encounter This section includes the information on record at [place] for the Encounter. Date/Time Encounter Type Encounter Description Reason Provider Source Sep 21, 2023 01:51 PM Outpatient Encounter TELEPHONE TRIAGE ALINA LIZAMA E Encounter Template Text not used by [facility] Plan of Treatment: Future Appointments (+ 6 months) and Future Tests (+/- 45 days) The Plan of Treatment section includes future care activities for the patient from all [place] [facility]. This section includes future appointments and [...] REH[place]IC[place] [facility] [facility] September 27, 2023 10:00 AM AMBULATORY [place]IC[place] [facility] [facility] October 18, 2023 03:30 PM AMBULATORY - [place] MEDICIN [place] [facility] [place] [facility] October 26, 2023 02:00 PM AMBULATORY - MEDICINE [facility] Nov 09, 2023 08:30 AM AMBULATORY - PSYCHIATRY [facility] Feb 09, 2024 08:30 AM AMBULATORY - PSYCHIATRY [facility] Feb 12, 2024 01:30 PM AMBULATORY - NONE [place] [facility] [facility] Feb 19, 2024 08:30 AM AM[place]UL[place]ORY [place]IC[place] [facility] Feb 21, 2024 08:40 AM AM[place]ULATORY [place]ICINE [place] [facility] Mar 01, 2024 10:30 AM AMBULATORY - MEDICINE [facility] Mar 12, 2024 09:00 AM AM[place]ULATORY [place]IC[place] [facility] Mar 14, 2024 02:00 PM AM[place]UL[place]ORY [place]ICINE [place] [facility] Lab Results: +/- 30 days [...] Range Comment Sep 21, 2023 07:50 AM [facility] HEMOGLOBIN A1C PANEL Specimen Type: [...] Jun 29, 2023 02:06 PM Reporting Lab: [address] [address] Performing Lab: [facility] [address] HEMOGLOBIN A1C 5.9 H 4.0-5.6 Sep 21, 2023 07:50 AM [facility] TSH Specimen Type: SERUM No comment entered. Ordering Provider: ARIEL JIMENEZ Report Released Date/Time: Jun 29, 2023 02:06 PM Reporting Lab: [address] [address] Performing Lab: [facility] [address] TSH 1.49 u[IU]/mL 0.35-5.00 Sep 21, 2023 07:50 AM [facility] MICROALBUMIN CREATININE RATIO PANEL Specimen Type: URINE No comment entered. Ordering Provider: ARIEL JIMENEZ Report Released Date/Time: Jun 29, 2023 02:06 PM Reporting Lab: [facility] [address] Performing Lab: [facility] [address] MICROALBUMIN/C REATININE RATIO 8.8 mg/g 0-29.9 MICROALBUMIN,Q UANTITATIVE 0.5 mg/dL RR UNAVAIL CREATININE URINE 56.63 mg/dL Sep 21, 2023 07:50 AM [facility] BASIC METABOLIC PANEL (fasting) Specimen Type: SERUM No comment entered. Ordering Provider: ARIEL JIMENEZ Report Released Date/Time: Jun 29, 2023 02:06 PM Reporting Lab: [facility] [address] [facility] [address] Performing Lab: [place] [facility] [facility] [address] [facility] [address] UREA NITROGEN 19 mg/dL 7-25 GLUCOSE 113 [...] 09:00 AM VA-TOBACCO USER SOME [facility]YS [facility] Tobacco Use History This section includes a history of the smoking, or tobacco-related health factors, that were collected on or before the date of the Encounter. The data comes from the [place] facility where the Encounter took place. 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 [place] [facility] [place] [facility] Jun 22, 2023 09:00 AM VA-TOBACCO USE MED NO [place] [facility] [facility] Jun 22, 2023 09:00 AM VA-TOBACCO USER SOME DAYS [place] [facility] [place] [facility] Jan 13, 2022 02:00 PM VA-TOBACCO NEVER USED [place] [facility] [facility] Jul 06, 2009 03:46 PM QUIT TOBACCO USE > 7 YEARS AGO [place] [facility] [facility] Advance Directives: All historical and current [...] Jun 29, 2023 ADVANCE DIRECTIVE GALLO,KIM M [facility] Sep 19, 2017 ADVANCE DIRECTIVE RSADINA BURGERE [facility] Encounter Notes: All associated encounter notes This section contains the clinical notes associated to the Encounter. Date/Time Encounter Note(s) Provider Source Sep 21, 2023 01:51 PM RN PROGRESS NOTE: LOCAL TITLE: CCC: CLINICAL TRIAGE STANDARD TITLE: RN PROGRESS NOTE DATE OF NOTE: SEP 21, 2023@13:51:44 ENTRY DATE: SEP 21, 2023@13:51:44 AUTHOR: ALINA LIZAMA EXP COSIGNER: URGENCY: STATUS: COMPLETED Patient Demographics Patient Name: LAKESHA SQUIRES Patient Primary Address: [address] [place] [address] Patient Primary Phone: [phone] Patient : 1965 Patient Age: 57 Caller/Recipient Relation to Patient: Self Emergency Contact: TANA SQUIRES Nursing Plan and Disposition Other course(s) of action Generated msg to PACT/Provider Provided guidance for worsening symptoms: *Caller/Patient* advised to call facilities [place] Clinical Contact Center or seek immediate medical attention for new or worsening symptoms Nurse Summary Nurse Summary: [place] reports acute ''hot pain'' in right button radiating down leg to right knee after working in [employer] this afternoon, drill broke causing him to drop his shoulder down. He states SI joint is out of alignment, saw chiropractor a week ago and has been stretching daily. Vet unable to get in touch with chiropractor, wants to know if [place] had chiropractor he can see today. Triage explained/offered - vet politely declined. Vet stated he will manage pain at home with Aleve and Tylenol Extra Strength, wait for call from chiropractor, does not want to take narcotics like he'd be given at /ED. [place] advised a note will be forwarded to PACT for follow up. Advised of Clinical Contact Center triage , available 19/12. Clinical Contact Center Codes Clinic/Location: V1 CWM PHONE CCC RN /janine/ ALINA LIZAMA Signed: 09/21/2023 13:51 Receipt Acknowledged By: 09/25/2023 10:07 /janine/ JAXSON HARDEN LPN License Practical Nurse 09/21/2023 15:18 /janine/ YOGI GOODWIN RN REGISTERED NURSE ALINA LIZAMA [facility]
--- OUTSIDE RECORDS SUMMARY | 2024-06-03 09:01 | XMS_ITS ---
Author Name [facility] [place] Address [address] [place] [address] Care Team Providers Care Collision Repairer Name Role Phone ARIEL JIMENEZ Primary Care [...] Parra's Name Patient's Relationship to Policy Parra [facility] Dec 19, 2015 [id number] [employer]NA [employer] PATIENT [facility] Dec 19, 2015 [id number] LAKESHA [employer] PATIENT [facility] May 29, 2012 [id number] [employer] PATIENT Selected Encounter This section includes the information on record at [place] for the Encounter. Date/Time Encounter Type Encounter Description Reason Provider Source October 03, 2023 07:16 AM Outpatient Encounter PRIMARY CARE/MEDICINE DEBBIE DOMINGUEZ Encounter Template Text not used by [place] Plan of Treatment: Future Appointments (+ 6 months) and Future Tests (+/- 45 days) The Plan of Treatment section includes future care activities for the patient [facility] [place] [facility] This section includes future appointments and future orders which are active, pending or scheduled. Future Appointments This section includes appointments that were scheduled to occur 6 months from the date of the Encounter, up to a maximum of 20 appointments. The data comes from all [place] treatment facilities. Appointment Date/Time Appointment Type Appointme nt Facility Name October 18, 2023 03:30 PM AMBULATORY - [place] [facility] [place] [facility] October 26, 2023 02:00 PM AMBULATORY - MEDICINE [facility] Nov 09, 2023 08:30 AM AMBULATORY - PSYCHIATRY [facility] Feb 09, 2024 08:30 AM AMBULATORY - PSYCHIATRY [facility] Feb 12, 2024 01:30 PM AMBULATORY - NONE [place] [facility] [facility] Feb 19, 2024 08:30 AM AMBUL[place]ORY [place]ICINE [place] [facility] Feb 21, 2024 08:40 AM AMBULATORY - [place]ICINE [place] [facility] Mar 01, 2024 10:30 AM [facility] Mar 12, 2024 09:00 AM AMBULATORY - [place]ICINE [place] [facility] Mar 14, 2024 02:00 PM AMBULATORY - [place]ICINE [place] [facility] Mar 25, 2024 08:00 AM AMBULATORY - [place]ICINE [place] [facility] Mar 27, 2024 11:20 AM AMBULATORY - [place]ICINE [place] [facility] Lab Results: +/- 30 days of the encounter This section includes the Chemistry and Hematology Lab Results on record with [place] for the patient. Radiology Reports and Pathology Reports are provided separately, in subsequent sections. Lab Results This section contains the Chemistry/Hematology Results that were resulted 30 days before or 30 daysafter the date of the Encounter. Date/Time Source Result Type Result - Unit Interpretation Reference Range Comment Sep 21, 2023 07:50 AM [place] [facility] [facility] [...] Jun 29, 2023 02:06 PM Reporting Lab: [address] [address] Performing Lab: [facility] [address] HEMOGLOBIN A1C 5.9 H 4.0-5.6 Sep 21, 2023 07:50 AM [facility] TSH Specimen Type: SERUM No comment entered. Ordering Provider: ARIEL JIMENEZ Report Released Date/Time: Jun 29, 2023 02:06 PM Reporting Lab: [address] [address] Performing Lab: [facility] [address] TSH 1.49 u[IU]/mL 0.35-5.00 Sep 21, 2023 07:50 AM [facility] MICROALBUMIN CREATININE RATIO PANEL Specimen Type: URINE No comment entered. Ordering Provider: ARIEL JIMENEZ Report Released Date/Time: Jun 29, 2023 02:06 PM Reporting Lab: [facility] [address] Performing Lab: [facility] [address] MICROALBUMIN/C REATININE RATIO 8.8 mg/g 0-29.9 MICROALBUMIN,Q UANTITATIVE 0.5 mg/dL RR UNAVAIL CREATININE URINE 56.63 mg/dL Sep 21, 2023 07:50 AM [facility] BASIC METABOLIC PANEL (fasting) Specimen Type: SERUM No comment entered. Ordering Provider: ARIEL JIMENEZ Report Released Date/Time: Jun 29, 2023 02:06 PM Reporting Lab: [facility] [address] [facility] [address] Performing Lab: [place] [facility] [address] [facility] [address] UREA NITROGEN 19 mg/dL 7-25 GLUCOSE 113 [...] and tobacco- related health factors from the [place] facility where the Encounter took place. Current Smoking Status This section includes the most current smoking, or tobacco-related health factor, from the [place] facility where the Encounter took place. Date/Time Current Smoking Status Comment Rosendo ity Jun 22, 2023 09:00 AM VA-TOBACCO DOESNT USE [place] 30 MIN WAKEUP [facility] Tobacco Use History This section includes a history of the smoking, or tobacco-related health factors, that were collected on or before the date of the Encounter. The data comes from the [place] facility where the Encounter took place. 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 [place] [facility] [facility] Jun 22, 2023 09:00 AM VA-TOBACCO USE MED NO [place] [facility] [facility] Jun 22, 2023 09:00 AM VA-TOBACCO USER SOME DAYS [place] [facility] [place] [facility] Jan 13, 2022 02:00 PM VA-TOBACCO NEVER USED [place] [facility] [facility] Jul 06, 2009 03:46 PM QUIT TOBACCO USE > [facility] Advance Directives: All historical and current Section Date Range: From patient's date of to the date document was created. This section includes ALL of a patient's completed or amended [place] Advance and Rescinded Directives. The entries below indicate that a directive exists for the patient, but an actual copy is not included with this document. The data comes from all [place] facilities. Date Advance Directives Provider Source Jun 29, 2023 ADVANCE DIRECTIVE GALLO,KIM M [facility] Sep 19, 2017 ADVANCE DIRECTIVE MCGINNISDINA YANCEY [facility] Encounter Notes: All associated encounter notes This section contains the clinical notes associated to the Encounter. Date/Time Encounter Note(s) Provider Source October 04, 2023 02:50 PM ADDENDUM: LOCAL TITLE: Addendum STANDARD TITLE: ADDENDUM DATE OF NOTE: OCTOBER 04, 2023@14:50:40 ENTRY DATE: OCTOBER 04, 2023@14:50:41 AUTHOR: DEBBIE DOMINGUEZ EXP COSIGNER: URGENCY: STATUS: COMPLETED Per secure message from , he does not require any other medications at this time. ALERT TO PCP for consideration of requested medication renewal and dosage change /janine/ DEBBIE DOMINGUEZ RN REGISTERED NURSE Signed: 10/04/2023 14:51 Receipt Acknowledged By: 10/05/2023 13:27 /janine/ ARIEL JIMENEZ D.O. PHYSICIAN === --- Original Document --- 10/03/23 PRIMARY CARE SECURE MESSAGING: ------Original Message ------ Sent: 09/30/2023 08:01 AM ET From: LAKESHA SQUIRES To: Alex JIMENEZ _ PRIMARY CARE_[facility] Subject: Medication:Sidinafil Good Morning Doc, I forgot to ask at my appointment last week. When I do use the Sidinafil, I found that 1/4 and 1/2 pill did not work. I had to use one whole pill, for it to be effective. Hence, i am almost out. Can you please submit a change in the script to a whole pill and qty to match. At one pill, i only get 6 per refill. Thank you, Vijay ------Original Message ------ Sent: 10/03/2023 08:16 AM ET From: DEBBIE DOMINGUEZ To: LAKESHA SQUIRES Subject: Medication:Sidinafil Good Morning Mr. Squires, I will forward your medication request to your provider, I'm wondering if there are any other medications that we can renew for you at this time? Respectfully, Debbie Dominguez RN /janine/ DEBBIE DOMINGUEZ RN REGISTERED NURSE Signed: 10/03/2023 08:16 DEBBIE DOMINGUEZ [place] [facility] [facility] October 03, 2023 07:16 AM PRIMARY CARE SECUR E MESSAGING: LOCAL TITLE: PRIMARY CARE SECURE MESSAGING STANDARD TITLE: PRIMARY CARE SECURE MESSAGING DATE OF NOTE: OCTOBER 03, 2023@07:16 ENTRY DATE: OCTOBER 03, 2023@08:16:55 AUTHOR: DEBBIE DOMINGUEZ EXP COSIGNER: URGENCY: STATUS: COMPLETED PRIMARY CARE SECURE MESSAGING Has ADDENDA ------Original Message ------ Sent: 09/30/2023 08:01 AM ET From: LAKESHA SQUIRES To: Alex JIMENEZ _ [facility] Subject: Medication:Sidinafil Good Morning Doc, I forgot to ask at my appointment last week. When I do use the Sidinafil, I found that 1/4 and 1/2 pill did not work. I had to use one whole pill, for it to be effective. Hence, i am almost out. Can you please submit a change in the script to a whole pill and qty to match. At one pill, i only get 6 per refill. Thank you, Vijay ------Original Message ------ Sent: 10/03/2023 08:16 AM ET From: DEBBIE DOMINGUEZ To: LAKESHA SQUIRES Subject: Medication:Sidinafil Good Morning Mr. Squires, I will forward your medication request to your provider, I'm wondering if there are any other medications that we can renew for you at this time? Respectfully, Debbie Dominguez RN /janine/ DEBBIE DOMINGUEZ RN REGISTERED NURSE Signed: 10/03/2023 08:16 10/04/2023 ADDENDUM STATUS: COMPLETED Per secure message from , he does not require any other medications at this time. ALERT TO PCP for consideration of requested medication renewal and dosage change /janine/ DEBBIE DOMINGUEZ RN REGISTERED NURSE Signed: 10/04/2023 14:51 Receipt Acknowledged By: * AWAITING SIGNATURE * ARIEL JIMENEZ [facility] E [place] [facility]
--- OUTSIDE RECORDS SUMMARY | 2024-06-03 09:01 | XMS_ITS | Encounter Summary ---
Author Name [facility] [facility] [place] Address [address] [place] [address] Care Team Providers Care Invoice Checker Name Role Phone ARIEL JIMENEZ Primary Care [...] Parra's Name Patient's Relationship to Policy Parra [facility] Dec 19, 2015 [id number] [id number] [phone] [employer] PATIENT [facility] Dec 19, 2015 [id number] [employer] PATIENT [facility] May 29, 2012 [id number] [employer] PATIENT Selected Encounter This section includes the information on record at [place] for the Encounter. Date/Time Encounter Type Encounter Description Reason Pro vider Source October 13, 2023 01:39 PM Outpatient Encounter COMMUNITY CARE CONSULT IHE Encounter Template Text not used by [facility] Plan of Treatment: Future Appointments (+ 6 months) and Future Tests (+/- 45 days) The Plan of Treatment section includes future care activities for the patient [facility] [place] [facility] This section includes future appointments and future orders which are active, pending or scheduled. Future Appointments This section includes appointments that were scheduled to occur 6 months from the date of the Encounter, up to a maximum of 20 appointments. The data comes from all [place] treatment facilities. Appointment Date/Time Appointment Type Appointme nt Facility Name October 18, 2023 03:30 PM AMBULATORY - [facility] October 26, 2023 02:00 PM AMBULATORY - MEDICINE [facility] Nov 09, 2023 08:30 AM AMBULATORY - PSYCHIATRY [facility] Feb 09, 2024 08:30 AM AMBULATORY - PSYCHIATRY [facility] Feb 12, 2024 01:30 PM AMBULATORY - NONE [facility] Feb 19, 2024 08:30 AM AMBULATORY [facility]ICINE [facility] Feb 21, 2024 08:40 AM AMBULATORY [facility] MEDICINE [facility] Mar 01, 2024 10:30 AM [facility] Mar 12, 2024 09:00 AM AMBULATORY [facility]ICINE [facility] Mar 14, 2024 02:00 PM AMBULATORY - MEDICINE [facility] Mar 25, 2024 08:00 AM AMBULATORY - MEDICINE [facility] Mar 27, 2024 11:20 AM AMBULATORY - MEDICINE [facility] Lab Results: +/- 30 days of the encounter This section includes the Chemistry and Hematology Lab Results on record with [place] for the patient. Radiology Reports and Pathology Reports are provided separately, in subsequent sections. Lab Results This section contains the Chemistry/Hematology Results that were resulted 30 days before or 30 daysafter the date of the Encounter. Date/Time Source Result Type Result - Unit Interpretation Reference Range Comment Sep 21, 2023 07:50 AM [facility] HEMOGLOBIN A1C PANEL Specimen Type: BLOOD Comment: [...] 02:06 PM [facility] [address] [address] Performing Lab: [facility] [address] [address] HEMOGLOBIN A1C 5.9 H 4.0-5.6 Sep 21, 2023 07:50 AM [facility] TSH Specimen Type: SERUM No comment entered. Ordering Provider: ARIEL JIMENEZ Report Released Date/Time: Jun 29, 2023 02:06 PM Reporting [facility] [address] [address] Performing Lab: [facility] [address] TSH 1.49 u[IU]/mL 0.35-5.00 Sep 21, 2023 07:50 AM [facility] MICROALBUMIN CREATININE RATIO PANEL Specimen Type: URINE No comment entered. Ordering Provider: ARIEL JIMENEZ Report Released Date/Time: Jun 29, 2023 02:06 PM Reporting Lab[facility] [address] Performing [facility]: [facility] [address] MICROALBUMIN/C REATININE RATIO 8.8 mg/g 0-29.9 MICROALBUMIN,Q UANTITATIVE 0.5 mg/dL RR UNAVAIL CREATININE URINE 56.63 mg/dL Sep 21, 2023 07:50 AM [facility] BASIC METABOLIC PANEL (fasting) Specimen Type: SERUM No comment entered. Ordering Provider: ARIEL JIMENEZ Report Released Date/Time: Jun 29, 2023 02:06 PM Reporting Lab[facility] [place] [place] [address] Performing Lab: [place] [facility] [address] [facility] [address] UREA NITROGEN 19 mg/dL 7-25 GLUCOSE 113 [...] and tobacco- related health factors from the [place] facility where the Encounter took place. Current Smoking Status This section includes the most current smoking, or tobacco-related health factor, from the [place] facility where the Encounter took place. Date/Time Current Smoking Status Comment Rosendo ity Jun 22, 2023 09:00 AM VA-TOBACCO USE 30 YEARS OR MORE [facility] Tobacco Use History This section includes a history of the smoking, or tobacco-related health factors, that were collected on or before the date of the Encounter. The data comes from the [place] facility where the Encounter took place. 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 This section includes ALL of a patient's completed or amended [place] Advance and Rescinded Directives. The entries below indicate that a directive exists for the patient, but an actual copy is not included with this document. The data comes from all [place] facilities. Date Advance Directives Provider Source Jun 29, 2023 ADVANCE DIRECTIVE JAMES GALLO [facility] Sep 19, 2017 ADVANCE DIRECTIVE DINA MCGINNIS [facility] Encounter Notes: All associated encounter notes This section contains the clinical notes associated to the Encounter. Date/Time Encounter Note(s) Provider Source October 13, 2023 01:39 PM NONVA NOTE: LOCAL TITLE: [facility] CARE COORD PLAN STANDARD TITLE: NONVA NOTE DATE OF NOTE: OCTOBER 13, 2023@13:39 ENTRY DATE: OCTOBER 13, 2023@13:39:30 AUTHOR: SOURAV BUENO EXP COSIGNER: URGENCY: STATUS: COMPLETED Emergency Notification Intake Date Presenting to the Facility: Aug Method of Contact: Notified from ECR worklist Notification ID: [id number] [facility] Referral #: [id number] [facility] Hospital Name: Hospital: [facility] [place] Address: City: [place] State: [place] Zip Code: Phone : [facility] Facility Point of Contact: Name: Dorene Phone: Chief complaint: L INDEX AND MID FINGER LACERATION Primary Diagnosis: Disposition Discharged Date of discharge: Aug Discharge to Comment: ER Only /janine/ SOURAV MONTEMAYOR Signed: 10/13/2023 13:40 Receipt Acknowledged By: 10/13/2023 16:10 /es/ ARIEL JIMENEZ D.O. PHYSICIAN 10/25/2023 07:22 /es/ Selena ROCKWELL,RN,[facility] TRANSFER/TRAVELING COORDINATOR 10/13/2023 15:36 /es/ YOGI GOODWIN, IRINEO REGISTERED NURSE SOURAV BUENO [place]
--- OUTSIDE RECORDS SUMMARY | 2024-06-03 09:01 | XMS_ITS ---
Author Name [facility] Address [address] [place] [address] Care Team Providers Care Curtain Cleaner Name Role Phone ARIEL INFANTE Primary Care [...] Parra's Name Patient's Relationship to Policy Parra [facility] Dec 19, 2015 [id number] [id number] [phone] TANA [employer] PATIENT [facility] Dec 19, 2015 [id number] [phone] LAKESHA NGO PATIENT [facility] May 29, 2012 [id number] [employer] PATIENT Selected Encounter This section includes the information on record at [place] for the Encounter. Date/Time Encounter Type Encounter Description Reason Provider Source October 18, 2023 01:51 PM Outpatient Encounter PRIMARY CARE/MEDICINE YOGI DOMINGUEZ Encounter Template Text not used by [place] Plan of Treatment: Future Appointments (+ 6 months) and Future Tests (+/- 45 days) The Plan of Treatment section includes future care activities for the patient from all [place] [facility]. This section includes future appointments and future orders which are active, pending or scheduled. Future Appointments This section includes appointments that were scheduled to occur 6 months from the date of the Encounter, up to a maximum of 20 appointments. The data comes from all [place] treatment facilities. Appointment Date/Time Appointment Type Appointme nt Facility Name October 26, 2023 02:00 PM AMBULATORY - MEDICINE [facility] Nov 09, 2023 08:30 AM AMBULATORY - PSYCHIATRY [facility] Feb 09, 2024 08:30 AM AMBULATORY - PSYCHIATRY [facility] Feb 12, 2024 01:30 PM [facility]ULATORY - [facility] [place] [facility] Feb 19, 2024 08:30 AM AMBULATORY - MEDICINE [facility] [place] [facility] Feb 21, 2024 08:40 AM AMBULATORY - MEDICINE [facility] [facility] Mar 01, 2024 10:30 AM AMBULATORY - MEDICINE [facility] Mar 12, 2024 09:00 AM AMBULATORY - MEDICINE [facility] [facility] Mar 14, 2024 02:00 PM AMBULATORY - MEDICINE [facility] [place] [place] [facility] Mar 25, 2024 08:00 AM AMBULATORY - MEDICINE [facility] [facility] Mar 27, 2024 11:20 AM AMBULATORY - MEDICINE [facility] [place] [facility] Lab Results: +/- 30 days of the [...] Range Comment Sep 21, 2023 07:50 AM [facility] [place] [facility] HEMOGLOBIN A1C PANEL Specimen Type: BLOOD Comment: [...] Jun 29, 2023 02:06 PM Reporting Lab: [facility] [address] [phone] Performing Lab: [facility] [address] [facility] [phone] HEMOGLOBIN A1C 5.9 H 4.0-5.6 Sep 21, 2023 07:50 AM [facility] TSH Specimen Type: SERUM No comment entered. Ordering Provider: ARIEL INFANTE Report Released Date/Time: Jun 29, 2023 02:06 PM Reporting Lab: [facility] [address] [facility] [phone] Performing Lab: [facility] [address] [facility] [address] TSH 1.49 u[IU]/mL 0.35-5.00 Sep 21, 2023 07:50 AM [facility] MICROALBUMIN CREATININE RATIO PANEL Specimen Type: URINE No comment entered. Ordering Provider: ARIEL INFANTE Report Released Date/Time: Jun 29, 2023 02:06 PM Reporting Lab: [facility] [address] [facility] [phone] Performing Lab: [facility] [address] [facility] [address] MICROALBUMIN/C REATININE RATIO 8.8 mg/g 0-29.9 MICROALBUMIN,Q UANTITATIVE 0.5 mg/dL RR UNAVAIL CREATININE URINE 56.63 mg/dL Sep 21, 2023 07:50 AM [facility] BASIC METABOLIC PANEL (fasting) Specimen Type: SERUM No comment entered. Ordering Provider: ARIEL INFANTE Report Released Date/Time: Jun 29, 2023 02:06 PM Reporting Lab: [facility] [address] [phone] Performing Lab: [facility] [facility] [address] [facility] [address] UREA NITROGEN 19 mg/dL 7-25 GLUCOSE 113 [...] 2023 09:00 AM VA-TOBACCO USER SOME DAYS [facility] Tobacco Use History This section includes a history of the smoking, or tobacco-related health factors, that were collected on or before the date of the Encounter. The data comes from the [place] facility where the Encounter took place. 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 [place] [facility] [facility] Jun 22, 2023 09:00 AM VA-TOBACCO USE MED NO [facility] [place] [facility] Jun 22, 2023 09:00 AM VA-TOBACCO USER SOME DAYS [facility] [place] [facility] Jan 13, 2022 02:00 PM VA-TOBACCO NEVER USED [place] [facility] [place] [facility] Jul 06, 2009 03:46 PM QUIT TOBACCO USE > 7 YEARS AGO [facility] [place] [facility] Advance Directives: All historical and current Section [...] the Encounter. Date/Time Encounter Note(s) Provider Source Nov 13, 2023 11:10 AM PRIMARY CARE [employer] E MESSAGING: LOCAL TITLE: PRIMARY CARE SECURE MESSAGING STANDARD TITLE: PRIMARY CARE SECURE MESSAGING DATE OF NOTE: NOV 13, 2023@11:10 ENTRY DATE: NOV 13, 2023@12:10:37 AUTHOR: JAXSON HARDEN EXP COSIGNER: URGENCY: STATUS: COMPLETED ------Original Message ------ Sent: 11/09/2023 11:18 AM ET From: LAKESHA SQUIRES To: Alex INFANTE _ PRIMARY CARE_[facility] Subject: Medication:Summer needs Thank you so much for your attention and urgency in handling this matter. Respectfully, Vijay. ------Original Message ------ Sent: 11/13/2023 08:36 AM ET From: LAKESHA SQUIRES To: Alex INFANTE _ [facility] Subject: Medication:Summer needs Good Morning Yogi, Any headway? Vijay ------Original Message ------ Sent: 11/13/2023 12:10 PM ET From: JAXSON HARDEN To: LAKESHA SQUIRES Subject: Medication:Summer needs Lorena Lewis is on vacation this week. I just spoke with the pharmacy in [place], and they told me that is should be ready in couple of hours. You need to pick them up, there is not enough time for us to mail them out to you. Have a great summer Let us know if you need anything else Jaxson Primary Care /es/ JAXSON HARDEN LPN License Practical Nurse Signed: 11/13/2023 12:10 JAXSON HARDEN [facility] [place] [facility] Nov 09, 2023 09:35 AM ADDENDUM: LOCAL TITLE: Addendum STANDARD TITLE: ADDENDUM DATE OF NOTE: NOV 09, 2023@09:35:13 ENTRY DATE: NOV 09, 2023@09:35:14 AUTHOR: YOGI DOMINGUEZ EXP COSIGNER: URGENCY: STATUS: COMPLETED Spoke to pharmacy in [place], they report that they are sending request to [facility] as would like to pickle solution maker at [facility] if is possible to complete this request. I have included pharmacist on this alert so that they can see the entire list of medications that is requesting. Please advise if there is anything we need to do on our end. Hye is quite anxious regarding this as he leaves on 11/15/23. Please advise if completed. /janine/ YOGI DOMINGUEZ RN REGISTERED NURSE Signed: 11/09/2023 09:37 Receipt Acknowledged By: 12/08/2023 08:57 /janine/ ELEONORA MAYFIELD PHARMD CLINICAL PHARMACIST === --- Original Document --- 11/07/23 PRIMARY CARE SECURE MESSAGING: ------Original Message ------ Sent: 11/06/2023 04:14 PM ET From: LAKESHA SQUIRES To: Alex INFANTE _ [facility]IMARY [facility]ARE_[facility] Subject: Medication:Summer needs Yogi, To make it through the 9 week summer trip I'm leaving on, on November 14, I need the following, to not run out over the summer. Hydrochlorothiazide 12 pills Bupropion 39 pills Lisinopril 50 pills Atorvastatin 30 pills Empaglifazone 20 pills Ozempic 1 month Please let me know if I can pick this up in [place] or [place]. Thank you, Vijay ------Original Message ------ Sent: 11/06/2023 04:38 PM ET From: LAKESHA SQUIRES To: Alex INFANTE _ [facility] Subject: Medication:Summer needs Yogi, One other med, Sildenafil. I have 15 left and would like to refill that, before I leave please. Thank you again, Vijay ------Original Message ------ Sent: 11/07/2023 08:29 AM ET From: YOGI DOMINGUEZ To: LAKESHA SQUIRES Subject: Medication:Summer needs Good Morning Mr. Squires, I will alert Dr. Infante to you medication needs for the summer. Respectfully, Yogi Dominguez RN /janine/ YOGI DOMINGUEZ RN REGISTERED NURSE Signed: 11/07/2023 08:29 11/07/2023 ADDENDUM STATUS: COMPLETED ALERT TO PCP for consideration of requested medication renewals. Please note that will be away for the summer, leaving on 11/15/23; he is looking to have enough medication to get him through the summer. /jeff DOMINGUEZ RN REGISTERED NURSE Signed: 11/07/2023 08:30 Receipt Acknowledged By: 11/07/2023 14:13 /janine/ ARIEL INFANTE D.O. PHYSICIAN 11/07/2023 ADDENDUM STATUS: COMPLETED Hye sent separate secure message requesting refill of Sildenafil prior to leaving for summer, in addition to other medications listed. /jeff DOMINGUEZ RN REGISTERED NURSE Signed: 11/07/2023 08:32 11/07/2023 ADDENDUM STATUS: COMPLETED Yogi- can you call the pharamcy and convey this to them- they can usually release early. they dont; always ahve 90 days in stock to pickle solution maker at window. thanks. /janine/ ARIEL INFANTE D.O. PHYSICIAN Signed: 11/07/2023 14:14 YOGI DOMINGUEZ [place] [facility] [place] [facility] Nov 09, 2023 08:39 AM PRIMARY CARE KEZIA Patel MESSAGING: LOCAL TITLE: PRIMARY CARE SECURE MESSAGING STANDARD TITLE: PRIMARY CARE SECURE MESSAGING DATE OF NOTE: NOV 09, 2023@08:39 ENTRY DATE: NOV 09, 2023@09:39:09 AUTHOR: YOGI DOMINGUEZ EXP COSIGNER: URGENCY: STATUS: COMPLETED ------Original Message ------ Sent: 11/07/2023 08:32 AM ET From: YOGI DOMINGUEZ To: LAKESHA SQUIRES Subject: Medication:Summer needs Good Morning Mr. Squires, I will include this medication with your list of other requested medications for Dr. Infante Respectfully, Yogi Dominguez RN ------Original Message ------ Sent: 11/09/2023 06:32 AM ET From: LAKESHA SQUIRES To: Alex INFANTE _ [facility] Subject: Medication:Summer needs Yogi, I'm getting a little nervous. Are the additional meds in mail with hopes of getting here before I leave on the , or do I need to get to [place] to pick them up? I am available by phone all day. Thank you, Vijay [phone] ------Original Message ------ Sent: 11/09/2023 09:39 AM ET From: YOGI DOMINGUEZ To: LAKESHA SQUIRES Subject: Medication:Summer needs Good Morning Mr. Squires, I've been working very hard with pharmacy to get this completed. I have just spoken with the [place] pharmacy as I thought it would be easiest for you to pickle solution maker there since you live in [place]. It is being worked on and we will be in touch shortly. I understand your urgency as you leave on Monday. I have conveyed this to pharmacy. Respectfully, Yogi Dominguez RN /janine/ YOGI DOMINGUEZ RN REGISTERED NURSE Signed: 11/09/2023 09:39 YOGI DOMINGUEZ [place] [facility] [place] [facility] Nov 07, 2023 08:29 AM ADDENDUM: LOCAL TITLE: Addendum STANDARD TITLE: ADDENDUM DATE OF NOTE: NOV 07, 2023@08:29:58 ENTRY DATE: NOV 07, 2023@08:29:59 AUTHOR: YOGI DOMINGUEZ EXP COSIGNER: URGENCY: STATUS: COMPLETED ALERT TO PCP for consideration of requested medication renewals. Please note that will be away for the summer, leaving on 11/15/23; he is looking to have enough medication to get him through the summer. /janine/ YOGI DOMINGUEZ RN REGISTERED NURSE Signed: 11/07/2023 08:30 Receipt Acknowledged By: 11/07/2023 14:13 /janine/ ARIEL INFANTE D.O. PHYSICIAN === --- Original Document --- 11/07/23 PRIMARY CARE SECURE MESSAGING: ------Original Message ------ Sent: 11/06/2023 04:14 PM ET From: LAKESHA SQUIRES To: Alex INFANTE _ PRIMARY CARE_[facility] Subject: Medication:Summer needs Yogi, To make it through the 9 week summer trip I'm leaving on, on November 14, I need the following, to not run out over the summer. Hydrochlorothiazide 12 pills Bupropion 39 pills Lisinopril 50 pills Atorvastatin 30 pills Empaglifazone 20 pills Ozempic 1 month Please let me know if I can pick this up in [place] or [place]. Thank you, Vijay ------Original Message ------ Sent: 11/06/2023 04:38 PM ET From: LAKESHA SQUIRES To: Alex INFANTE [facility] Subject: Medication:Summer needs Yogi, One other med, Sildenafil. I have 15 left and would like to refill that, before I leave please. Thank you again, Vijay ------Original Message ------ Sent: 11/07/2023 08:29 AM ET From: YOGI DOMINGUEZ To: LAKESHA SQUIRES Subject: Medication:Summer needs Good Morning Mr. Squires, I will alert Dr. Infante to you medication needs for the summer. Respectfully, Yogi Dominguez RN /janine/ YOGI DOMINGUEZ RN REGISTERED NURSE Signed: 11/07/2023 08:29 11/07/2023 ADDENDUM STATUS: COMPLETED Hye sent separate secure message requesting refill of Sildenafil prior to leaving for summer, in addition to other medications listed. /janine/ YOGI DOMINGUEZ RN REGISTERED NURSE Signed: 11/07/2023 08:32 11/07/2023 ADDENDUM STATUS: UNSIGNED You may not VIEW this UNSIGNED Addendum. YOGI DOMINGUEZ [place] [facility] [place] [facility] Nov 07, 2023 07:29 AM PRIMARY CARE SECUR E MESSAGING: LOCAL TITLE: PRIMARY CARE SECURE MESSAGING STANDARD TITLE: PRIMARY CARE SECURE MESSAGING DATE OF NOTE: NOV 07, 2023@07:29 ENTRY DATE: NOV 07, 2023@08:29:42 AUTHOR: YOGI DOMINGUEZ EXP COSIGNER: URGENCY: STATUS: COMPLETED PRIMARY CARE SECURE MESSAGING Has ADDENDA ------Original Message ------ Sent: 11/06/2023 04:14 PM ET From: LAKESHA SQUIRES To: Alex INFANTE [facility] Subject: Medication:Summer needs Yogi, To make it through the 9 week summer trip I'm leaving on, on November 14, I need the following, to not run out over the summer. Hydrochlorothiazide 12 pills Bupropion 39 pills Lisinopril 50 pills Atorvastatin 30 pills Empaglifazone 20 pills Ozempic 1 month Please let me know if I can pick this up in [place] or [place]. Thank you, Vijay ------Original Message ------ Sent: 11/06/2023 04:38 PM ET From: LAKESHA SQUIRES To: Alex INFANTE _ [facility]IMARY [facility]ARE[facility] Subject: Medication:Summer needs Yogi, One other med, Sildenafil. I have 15 left and would like to refill that, before I leave please. Thank you again, Vijay ------Original Message ------ Sent: 11/07/2023 08:29 AM ET From: YOGI DOMINGUEZ To: LAKESHA SQUIRES Subject: Medication:Summer needs Good Morning Mr. Squires, I will alert Dr. Infante to you medication needs for the summer. Respectfully, Yogi Dominguez RN /janine/ YOGI DOMINGUEZ RN REGISTERED NURSE Signed: 11/07/2023 08:29 11/07/2023 ADDENDUM STATUS: COMPLETED ALERT TO PCP for consideration of requested medication renewals. Please note that will be away for the summer, leaving on 11/15/23; he is looking to have enough medication to get him through the summer. /jeff DOMINGUEZ RN REGISTERED NURSE Signed: 11/07/2023 08:30 Receipt Acknowledged By: 11/07/2023 14:13 /janine/ ARIEL INFANTE D.O. PHYSICIAN 11/07/2023 ADDENDUM STATUS: COMPLETED Hye sent separate secure message requesting refill of Sildenafil prior to leaving for summer, in addition to other medications listed. /jeff DOMINGUEZ RN REGISTERED NURSE Signed: 11/07/2023 08:32 11/07/2023 ADDENDUM STATUS: COMPLETED Yogi- can you call the pharamcy and convey this to them- they can usually release early. they dont; always ahve 90 days in stock to pickle solution maker at [facility]. thanks. /janine/ ARIEL INFANTE D.O. PHYSICIAN Signed: 11/07/2023 14:14 11/09/2023 ADDENDUM STATUS: COMPLETED Spoke to pharmacy in [place], they report that they are sending request to [facility] as would like to pickle solution maker at [facility] if is possible to complete this request. I have included pharmacist on this alert so that they can see the entire list of medications that is requesting. Please advise if there is anything we need to do on our end. Hye is quite anxious regarding this as he leaves on 11/15/23. Please advise if completed. /janine/ YOGI DOMINGUEZ, RN REGISTERED NURSE Signed: 11/09/2023 09:37 Receipt Acknowledged By: * AWAITING SIGNATURE * ELEONORA MAYFIELD KARIN E [facility] [facility] Nov 06, 2023 07:11 AM PRIMARY CARE SECUR E MESSAGING: [facility] TITLE: PRIMARY CARE SECURE MESSAGING STANDARD TITLE: PRIMARY CARE SECURE MESSAGING DATE OF NOTE: NOV 06, 2023@07:11 ENTRY DATE: NOV 06, 2023@08:11:14 AUTHOR: YOGI DOMINGUEZ EXP COSIGNER: URGENCY: STATUS: COMPLETED ------Original Message ------ Sent: 11/06/2023 07:17 AM ET From: LAKESHA SQUIRES To: Alex INFANTE _ PRIMARY CARE_[facility] Subject: Medication:Summer needs Good Morning Doc, I received my Metformin this weekend. I am kind of down to the wire, leaving in 9 days. Should I go direct to the pharmacy in [place]? Thank you, Vijay ------Original Message ------ Sent: 11/06/2023 08:11 AM ET From: YOGI DOMINGUEZ To: LAKESHA SQUIRES Subject: Medication:Summer needs Good Morning Mr. Squires, What other medications are you waiting for? I'm a little confused because it says you received the Metformin, so I assume that means you are waiting for another medication? Please let me know exactly what you need so we can resolve this issue for you. Respectfully, Yogi Dominguez RN /janine/ YOGI DOMINGUEZ RN REGISTERED NURSE Signed: 11/06/2023 08:11 YOGI DOMINGUEZ [place] [facility] [facility] October 18, 2023 02:51 PM ADDENDUM: LOCAL TITLE: Addendum STANDARD TITLE: ADDENDUM DATE OF NOTE: OCTOBER 18, 2023@14:51:30 ENTRY DATE: OCTOBER 18, 2023@14:51:31 AUTHOR: YOGI DOMINGUEZ EXP COSIGNER: URGENCY: STATUS: COMPLETED ALERT TO PCP for consideration of medication request. /janine/ YOGI DOMINGUEZ RN REGISTERED NURSE Signed: 10/18/2023 14:51 Receipt Acknowledged By: 10/24/2023 08:04 /janine/ ARIEL INFANTE D.O. PHYSICIAN === --- Original Document --- 10/18/23 PRIMARY CARE SECURE MESSAGING: ------Original Message ------ Sent: 10/18/2023 07:14 AM ET From: LAKESHA SQUIRES To: Alex INFANTE _ [facility]IMARY CARE_[facility] Subject: Medication:Summer needs Good Morning Doctor, A reminder of our conversation regarding my summer long camping travels. I leave on November 14 and don't return for 67 days. This is a list of what I have vs. what I need to make it through my travels. Medication Have/Need Metformin 75/89 Hydrochlor.. 70/12 Brupropion 43/39 Lisinopril. 32/50 Empaglif... 62/20 Atorvastatin Ozempic 12/4 Please call or message with any questions and thank you in advance for your assistance with that. Vijay ------Original Message ------ Sent: 10/18/2023 02:50 PM ET From: YOGI DOMINGUEZ To: LAKESHA SQUIRES Subject: Medication:Summer needs Good Afternoon Mr. Squires, I will forward this list to Dr. Infante for her review. Respectfully, Yogi Dominguez RN /janine/ YOGI DOMINGUEZ RN REGISTERED NURSE Signed: 10/18/2023 14:51 YOGI DOMINGUEZ [place] [facility] [facility] October 18, 2023 01:51 PM PRIMARY CARE KEZIA E MESSAGING: [facility] TITLE: PRIMARY CARE SECURE MESSAGING STANDARD TITLE: PRIMARY CARE SECURE MESSAGING DATE OF NOTE: OCTOBER 18, 2023@13:51 ENTRY DATE: OCTOBER 18, 2023@14:51:11 AUTHOR: YOGI DOMINGUEZ EXP COSIGNER: URGENCY: STATUS: COMPLETED PRIMARY CARE SECURE MESSAGING Has ADDENDA ------Original Message ------ Sent: 10/18/2023 07:14 AM ET From: LAKESHA SQUIRES To: Alex INFANTE _ [facility]IMARY [facility]ARE[facility] Subject: Medication:Summer needs Good Morning Doctor, A reminder of our conversation regarding my summer long camping travels. I leave on November 14 and don't return for 67 days. This is a list of what I have vs. what I need to make it through my travels. Medication Have/Need Metformin 75/89 Hydrochlor.. 70/12 Brupropion 43/39 Lisinopril. 32/50 Empaglif... 62/20 Atorvastatin Ozempic 05/01 Please call or message with any questions and thank you in advance for your assistance with that. Vijay ------Original Message ------ Sent: 10/18/2023 02:50 PM ET From: YOGI DOMINGUEZ To: TAVIA LAKESHA Peter Subject: Medication:Summer needs Good Afternoon Mr. Squires, I will forward this list to Dr. Infante for her review. Respectfully, Yogi Dominguez RN /janine/ YOGI DOMINGUEZ RN REGISTERED NURSE Signed: 10/18/2023 14:51 10/18/2023 ADDENDUM STATUS: COMPLETED ALERT TO PCP for consideration of medication request. /janine/ YOGI DOMINGUEZ RN REGISTERED NURSE Signed: 10/18/2023 14:51 Receipt Acknowledged By: * AWAITING SIGNATURE * ARIEL INFANTE KARIN E [facility]
--- OUTSIDE RECORDS SUMMARY | 2024-06-03 09:01 | XMS_ITS ---
Author Name [place] Address [address] [place] [address] Care Team Providers Care Enterprise Project Manager Name Role Phone ARIEL JIMENEZ Primary [...] Parra's Name Patient's Relationship to Policy Parra [facility] Dec 19, 2015 [id number] [phone] TANA NGO PATIENT [facility] Dec 19, 2015 [id number] LAKESHA NGO PATIENT [facility] May 29, 2012 [id number] [phone] TANA NGO PATIENT Selected Encounter This section includes the information on record at [place] for the Encounter. Date/Time Encounter Type Encounter Description Reason Provider Source October 16, 2023 07:23 AM Outpatient Encounter PRIMARY CARE/MEDICINE YOGI DOMINGUEZ Encounter Template Text not used by [place] Plan of Treatment: Future Appointments (+ 6 months) and Future Tests (+/- 45 days) The Plan of Treatment section includes future care activities for the patient from all [place] [facility] This section includes future appointments [...] REHAB MEDICIN E [place] [facility] October 26, 2023 02:00 PM AMBULATORY - MEDICINE [facility] Nov 09, 2023 08:30 AM AMBULATORY - PSYCHIATRY [facility] Feb 09, 2024 08:30 AM AMBULATORY - PSYCHIATRY [facility] Feb 12, 2024 01:30 PM AMBULATORY - NONE [place] [facility] Feb 19, 2024 08:30 AM AMBULATORY - MEDICINE [place] [facility] Feb 21, 2024 08:40 AM AMBULATORY - MEDICINE [place] C [place] [facility] Mar 01, 2024 10:30 AM [facility] Mar 12, 2024 09:00 AM AMBULATORY - MEDICINE [place] C [place] [facility] Mar 14, 2024 02:00 PM AMBULATORY - MEDICINE NE C [place] [facility] Mar 25, 2024 08:00 AM AMBULATORY - MEDICINE NE C [place] [facility] Mar 27, 2024 11:20 AM AMBULATORY - MEDICINE [place] [facility] Lab Results: +/- 30 days of [...] Range Comment Sep 21, 2023 07:50 AM [place] [facility] HEMOGLOBIN A1C PANEL Specimen Type: BLOOD [...] Jun 29, 2023 02:06 PM Reporting Lab: [address] [address] Performing [facility]: [facility] [address] HEMOGLOBIN A1C 5.9 H 4.0-5.6 Sep 21, 2023 07:50 AM [facility] TSH Specimen Type: SERUM No comment entered. Ordering Provider: ARIEL JIMENEZ Report Released Date/Time: Jun 29, 2023 02:06 PM Reporting Lab: [address] [address] Performing [facility]: [facility] [address] TSH 1.49 u[IU]/mL 0.35-5.00 Sep 21, 2023 07:50 AM [facility] MICROALBUMIN CREATININE RATIO PANEL Specimen Type: URINE No comment entered. Ordering Provider: ARIEL JIMENEZ Report Released Date/Time: Jun 29, 2023 02:06 PM Reporting Lab: [facility] [address] Performing Lab: [facility] [address] MICROALBUMIN/C REATININE RATIO 8.8 mg/g 0-29.9 MICROALBUMIN,Q UANTITATIVE 0.5 mg/dL RR UNAVAIL CREATININE URINE 56.63 mg/dL Sep 21, 2023 07:50 AM [facility] BASIC METABOLIC PANEL (fasting) Specimen Type: SERUM No comment entered. Ordering Provider: ARIEL JIMENEZ Report Released Date/Time: Jun 29, 2023 02:06 PM Reporting Lab: [facility] [address] [facility] [address] Performing Lab: [place] [facility] [address] [facility] [address] UREA NITROGEN 19 mg/dL 7-25 GLUCOSE 113 [...] VA-TOBACCO DOESNT USE WI 30 MIN WA[facility]UP [facility] Tobacco Use History This section includes a history of the smoking, or tobacco-related health factors, that were collected on or before the date of the Encounter. The data comes from the [place] facility where the Encounter took place. Date/Time Smoking Status/Tobacco Use Comment F acility Jun 22, 2023 09:00 AM VA-TOBACCO USE 30 YEARS OR MORE [place] [facility] Jun 22, 2023 09:00 AM VA-TOBACCO USE ADVICE [place] [facility] Jun 22, 2023 09:00 AM VA-TOBACCO USE AUTOCUTTER NO [place] [facility] Jun 22, 2023 09:00 AM VA-TOBACCO USE MED NO [place] [facility] Jun 22, 2023 09:00 AM VA-TOBACCO USER SOME DAYS [place] [facility] Jan 13, 2022 02:00 PM VA-TOBACCO NEVER USED [place]TR [place] [facility] Jul 06, 2009 03:46 PM QUIT TOBACCO USE > 7 YE[facility] AGO [facility] Advance Directives: All historical and current [...] Jun 29, 2023 ADVANCE DIRECTIVE JAMES GALLO [facility] Sep 19, 2017 ADVANCE DIRECTIVE RASDINA BC [facility] Encounter Notes: All associated encounter notes This section contains the clinical notes associated to the Encounter. Date/Time Encounter Note(s) Provider Source October 16, 2023 07:23 AM PRIMARY CARE [employer] MESSAGING: LOCAL TITLE: PRIMARY CARE SECURE MESSAGING STANDARD TITLE: PRIMARY CARE SECURE MESSAGING DATE OF NOTE: OCTOBER 16, 2023@07:23 ENTRY DATE: OCTOBER 16, 2023@08:23:55 AUTHOR: YOGI DOMINGUEZ EXP COSIGNER: URGENCY: STATUS: COMPLETED ------Original Message ------ Sent: 10/15/2023 04:59 PM ET From: LAKESHA SQUIRES To: Alex JIMENEZ _ PRIMARY CARE_[facility] Subject: General:Knee Replacement Good Morning Doctor Naresh, My ortho referral and meeting with Dr. Fritz led to ordering an unloading brace, to help me get along until the replacement. I'm gone all summer and would like to set the date for the surgery, in the fall. Is something I do via you or right through Doctor Fritz? The pain is bad now, and I can't imagine what it'll be like in the fall, and I'd like to get things done before the weather gets too cold. Thank you, Vijay ------Original Message ------ Sent: 10/16/2023 08:23 AM ET From: YOGI DOMINGUEZ To: LAKESHA SQUIRES Subject: General:Knee Replacement Good Morning Mr. Squires, I'm so sorry to hear how uncomfortable you are! I can see that the systems programmer brace was ordered on 09/22/23 and shipped on 10/13/23. You should receive it shortly. As far as the surgery, you should schedule with the surgeon and then let us know so that we can enter the Orthopedic surgery consult/referral. Please don't hesitate to reach out with any further questions or concerns. Respectfully, Yogi Dominguez RN /janine/ YOGI DOMINGUEZ RN REGISTERED NURSE Signed: 10/16/2023 08:23 YOGI DOMINGUEZ CNTRL W[facility]N [facility]
--- OUTSIDE RECORDS SUMMARY | 2024-06-03 09:01 | XMS_ITS | Encounter Summary ---
Author Name [place] Address [address] [place] [address] Care Team Providers Care Exceptional Needs Teacher Name Role Phone ARIEL JIMENEZ Primary Care [...] Parra's Name Patient's Relationship to Policy Parra [facility] Dec 19, 2015 [id number] [phone] TANA NGO PATIENT [facility] Dec 19, 2015 [id number] [phone] LAKESHA NGO PATIENT [facility] May 29, 2012 [id number] TANA NGO PATIENT Selected Encounter This section includes the information on record at [place] for the Encounter. Date/Time Encounter Type Encounter Description Reason Pro vider Source Dec 22, 2023 09:31 AM Outpatient Encounter OPTOMETRY E Encounter Template Text not used by VA Plan of Treatment: Future Appointments (+ 6 months) and Future Tests (+/- 45 days) The Plan of Treatment section includes future care activities for the patient from all [place] [facility] This section includes future appointments and future orders which are active, pending or scheduled. Future Appointments This section includes appointments that were scheduled to occur 6 months from the date of the Encounter, up to a maximum of 20 appointments. The data comes from all [facility]. Appointment Date/Time Appointment Type Appointme nt Facility Name Feb 09, 2024 08:30 AM AMBULATORY - PSYCHIATRY [facility] Feb 12, 2024 01:30 PM AMBULATORY - NONE [place] [facility] Feb 19, 2024 08:30 AM AMBULATORY - MEDICINE [place] [facility] Feb 21, 2024 08:40 AM AMBULATORY - MEDICINE [place] [facility] Mar 01, 2024 10:30 AM [facility] Mar 12, 2024 09:00 AM AMBULATORY - MEDICINE [place] [facility] Mar 14, 2024 02:00 PM AMBULATORY - MEDICINE [place] [facility] Mar 25, 2024 08:00 AM AMBULATORY - MEDICINE [place] [facility] Mar 27, 2024 11:20 AM AMBULATORY - MEDICINE [place] [facility] May 03, 2024 10:00 AM [facility] May 10, 2024 08:30 AM [facility] VA-TOBACCO DOESNT USE WI 30 MIN WAKEUP [facility] WSN [facility] Tobacco Use History This section includes a history of the smoking, or tobacco-related health factors, that were collected on or before the date of the Encounter. The data comes from the [place] facility where the Encounter took place. Date/Time Smoking Status/Tobacco Use Comment F acility Jun 22, 2023 09:00 AM VA-TOBACCO USE 30 YEARS OR MORE [facility] Jun 22, 2023 09:00 AM VA-TOBACCO USE ADVICE [facility] Jun 22, 2023 09:00 AM VA-TOBACCO USE ELIGIBILITY SPECIALIST NO [facility] Jun 22, 2023 09:00 AM VA-TOBACCO USE MED NO [facility] Jun 22, 2023 09:00 AM [facility] Jan 13, 2022 02:00 PM VA-TOBACCO NEVER USED [facility] Jul 06, 2009 03:46 PM QUIT TOBACCO USE > 7 YEARS AGO [facility] Advance Directives: All historical and current [...] Jun 29, [address] [facility] [facility] Sep 19, 2017 ADVANCE DIRECTIVE DINA MCGINNIS [facility] Encounter Notes: All associated encounter notes This section contains the clinical notes associated to the Encounter. Date/Time Encounter Note(s) Provider Source Dec 22, 2023 09:31 AM TELEPHONE ENCOUNTE R NOTE: LOCAL TITLE: TELEPHONE NOTE/SPECIALTY CLINIC STANDARD TITLE: TELEPHONE ENCOUNTER NOTE DATE OF NOTE: DEC 22, 2023@09:31 ENTRY DATE: DEC 22, 2023@09:32:01 AUTHOR: ISADORA MANCILLA EXP COSIGNER: URGENCY: STATUS: COMPLETED TELEPHONE NOTE/SPECIALTY CLINIC Has ADDENDA is in [place] and would like his most recent optometry prescription uploaded to [facility]. /es/ ISADORA MANCILLA LEAD SCIENTIFIC INVESTIGATOR Signed: 12/22/2023 09:33 Receipt Acknowledged By: 12/22/2023 10:11 /es/ TERRELL LLAMAS OPTOMETRY TECH 12/22/2023 09:52 /janine/ [facility] 12/22/2023 10:01 /janine/ Germaine Alicea [facility] [place] Technician 12/22/2023 ADDENDUM STATUS: COMPLETED Attached eyeglasses RX via [facility] as requested by patient /es/ [facility] Signed: 12/22/2023 09:58 ISADORA MANCILLA [place] [facility]
--- OUTSIDE RECORDS SUMMARY | 2024-06-03 09:01 | XMS_ITS ---
Author Name [place] Organization [place] Address [address] [place] [address] Care Team Providers Care Rn Vascular Name Role Phone ARIEL JIMENEZ Primary Care [...] Name Patient's Relationship to Policy Parra [facility] Dec 19, 2015 [id number] TANA NGO PATIENT [facility] Dec 19, 2015 [id number] [phone] LAKESHA NGO PATIENT [facility] May 29, 2012 [id number] TANA NGO PATIENT Selected Encounter This section includes the information on record at [place] for the Encounter. Date/Time Encounter Type Encounter Description Reason Pro vider Source Nov 02, 2023 08:50 AM Outpatient Encounter PRIMARY CARE/MEDICINE [facility] Encounter Template Text not used by [place] Plan of Treatment: Future Appointments (+ 6 months) and Future Tests (+/- 45 days) The Plan of Treatment section includes future care activities for the patient from all [place] [facility]. This section includes future appointments and future orders which are active, pending or scheduled. Future Appointments This section includes appointments that were scheduled to occur 6 months from the date of the Encounter, up to a maximum of 20 appointments. The data comes from all [facility]. Appointment Date/Time Appointment Type Appointme nt Facility Name Nov 09, 2023 08:30 AM AMBULATORY - PSYCHIATRY [facility] Feb 09, 2024 08:30 AM AMBULATORY - PSYCHIATRY [facility] Feb 12, 2024 01:30 PM AMBULATORY - NONE [place] [facility] Feb 19, 2024 08:30 AM AMBULATORY - MEDICINE [place] C [place] [facility] Feb 21, 2024 08:40 AM AMBULATORY - MEDICINE [place] C [place] [facility] Mar 01, 2024 10:30 AM AMBULATORY - MEDICINE [facility] Mar 12, 2024 09:00 AM AMBULATORY - MEDICINE [place] C [place] [facility] Mar 14, 2024 02:00 PM AMBULATORY - MEDICINE NH C [place] [facility] Mar 25, 2024 08:00 AM AMBULATORY - MEDICINE NH C [place] [facility] Mar 27, 2024 11:20 AM AMBULATORY - MEDICINE [place] C [place] [facility] May 03, 2024 10:00 AM [facility] Social History: Smoking Status (Most current) and [...] place. Date/Time Current Smoking Status Comment Rosendo sousay Jun 22, 2023 09:00 AM VA-TOBACCO USER SOME DAYS [place] [facility] Tobacco Use History This section includes a history of the smoking, or tobacco-related health factors, that were collected on or before the date of the Encounter. The data comes from the [place] facility where the Encounter took place. Date/Time Smoking Status/Tobacco Use Comment F acility Jun 22, 2023 09:00 AM VA-TOBACCO USE 30 YEARS OR [facility] Jun 22, 2023 09:00 AM VA-TOBACCO USE ADVICE [facility] Jun 22, 2023 09:00 AM VA-TOBACCO USE SENIOR LOGISTICS MANAGER NO [facility] Jun 22, 2023 09:00 AM VA-TOBACCO USE MED NO [facility] Jun 22, 2023 09:00 AM VA-TOBACCO USER [facility] DAYS [facility] Jan 13, 2022 02:00 PM VA-TOBACCO NEVER USED [facility] Jul 06, 2009 03:46 PM QUIT TOBACCO USE > 7 YEARS AGO [facility] Advance Directives: All historical and current [...] Jun 29, 2023 ADVANCE DIRECTIVE JAMES [facility]ALL[facility] Sep 19, 2017 ADVANCE DIRECTIVE DINA MCGINNIS [facility] Encounter Notes: All associated encounter notes This section contains the clinical notes associated to the Encounter. Date/Time Encounter Note(s) Provider Source Nov 02, 2023 08:50 AM ADMINISTRATIVE NOTE: LOCAL TITLE: FAX/MAIL RECEIVED STANDARD TITLE: ADMINISTRATIVE NOTE DATE OF NOTE: NOV 02, 2023@08:50 ENTRY DATE: NOV 02, 2023@08:50:22 AUTHOR: SULAIMAN LEE COSIGNER: URGENCY: STATUS: COMPLETED FAX/MAIL RECEIVED Has ADDENDA Document Received On: Oct Document Type: Other: referral request Date of Service: Jan Facility and or Provider: Teo Ceballos md [facility] Contact Information: fax: [phone] PCP of Record: ARIEL JIMENEZ Next visit with PCP: 11/09/2023 08:30 CWM/SO/VVC/MHC/REAL 02/19/2024 08:30 NHM/OPTOMETRY/[facility] May keep copies of this document for up to 14 days and send the original for scanning. Referral request at [facility] with provider Teo Ceballos dx: frieda [id number] Start 02/22/24 with 12 visits form in RN folder /janine/ SULAIMAN LEE Registered Nurse Signed: 11/02/2023 08:53 Receipt Acknowledged By: 11/03/2023 08:35 /janine/ JAXSON HARDEN LPN License Practical Nurse 11/02/2023 09:18 /janine/ YOGI GOODWIN RN REGISTERED NURSE 11/02/2023 ADDENDUM STATUS: COMPLETED Consult entered as requested, held for signature. Fax request sent to [employer] /janine/ YOGI GOODWIN RN REGISTERED NURSE Signed: 11/02/2023 09:18 SULAIMAN LEE [place] CNTRL WSTRN [facility]
--- OUTSIDE RECORDS SUMMARY | 2024-06-03 09:01 | XMS_ITS | Encounter Summary ---
Author Name [facility] [place] Organization [facility] [place] Address [address] [place] [id number] Care Team Providers Care Hydrogen Plant Operations Manager Name Role Phone ARIEL JIMENEZ Primary [...] Parra's Name Patient's Relationship to Policy Parra [facility] Dec 19, 2015 [id number] [phone] TANA NGO PATIENT [facility] Dec 19, 2015 [id number] [phone] LAKESHA NGO [facility] May 29, 2012 [id number] TANA NGO PATIENT Selected Encounter This section includes the information on record at [place] for the Encounter. Date/Time Encounter Type Encounter Description Reason Provider Source Nov 09, 2023 08:30 AM OFFICE O/P EST MOD 30 MIN [facility] - IND ICD-10-CM F43.23 Adjustment disorder with mixed anxiety and depressed mood REALTIANNA Sammy Encounter Template Text not used by [place] Assessments - Encounter Diagnoses This section includes the primary and secondary diagnoses documented for the Encounter. Date/Time Primary/Secondary Diagnosis Diagnosis Name Provider Source Nov 09, 2023 08:56 AM PRIMARY Adjustment disorder with mixed anxiety and depressed mood REALTIANNA [facility] Plan of Treatment: Future Appointments (+ 6 months) and Future Tests (+/- 45 days) The Plan of Treatment section includes future care activities for the patient from all [facility] This section includes future appointments [...] AMBULATORY - NONE [place] [facility] [place] [facility] Feb 19, 2024 08:30 AM AMBULATORY - MEDICINE [place] [facility] Feb 21, 2024 08:40 AM AMBULATORY - MEDICINE [place] C [place] [facility] Mar 01, 2024 10:30 AM AMBULATORY - MEDICINE [place] [facility] Mar 12, 2024 09:00 AM AMBULATORY - MEDICINE [place] C [place] [facility] Mar 14, 2024 02:00 PM AMBULATORY - MEDICINE [place] C [place] [facility] Mar 25, 2024 08:00 AM AMBULATORY - MEDICINE [place] C [place] [facility] Mar 27, 2024 11:20 AM AMBULATORY - MEDICINE [place] C [place] [facility] May 03, 2024 10:00 AM AMBULATORY - MEDICINE [place] [facility] May 10, 2024 08:30 AM AMBULATORY - PSYCHIATRY [facility] Social History: Smoking Status (Most current) [...] 23, 2020 01:00 PM VA-TOBACCO NEVER USED [facility] Tobacco Use History This section includes a history of the smoking, or tobacco-related health factors, that were collected on or before the date of the Encounter. The data comes from the [place] facility where the Encounter took place. Date/Time Smoking Status/Tobacco Use Comment F acility Sep 12, 2019 04:13 PM VA-TOBACCO FORMER USER [facility] Sep 12, 2019 04:13 PM VA-TOBACCO QUIT 15 YRS OR MORE [facility] Sep 24, 2018 10:32 AM VA-TOBACCO DOESNT USE WI 30 MIN WAKEUP [facility] Sep 24, 2018 10:32 AM VA-TOBACCO USE > 1 5 LESS THAN 30 YEARS [facility] Sep 24, 2018 10:32 AM VA-TOBACCO USE ADVICE [facility] Sep 24, 2018 10:32 AM VA-TOBACCO USE HIDE BUYER NO [facility] Sep 24, 2018 10:32 AM VA-TOBACCO USE MED NO [facility] Sep 24, 2018 10:32 AM VA-TOBACCO USER SOME DAYS [facility] May 04, 2017 11:25 AM LIFETIME NON-TOBACCO USER [facility] May 31, 2016 02:32 PM LIFETIME NON-TOBACCO USER [facility] Jun 04, 2015 09:46 AM QUIT TOBACCO USE > 7 YEARS AGO [id number] smoked [facility] May 11, 2015 02:01 PM [facility] Advance Directives: All historical and current Section Date Range: From patient's date of to the date document was created. This section includes ALL of a patient's completed or amended [place] Advance and Rescinded Directives. The entries below indicate that a directive exists for the patient, but an actual copy is not included with this document. The data comes from all [facility]. Date Advance Directives Provider Source Jun 29, 2023 ADVANCE DIRECTIVE [facility] Sep 19, 2017 ADVANCE DIRECTIVE DINA MCGINNIS [facility] Encounter Notes: All associated encounter notes This section contains the clinical notes associated to the Encounter. Date/Time Encounter Note(s) Provider Source Nov 09, 2023 08:50 AM TELEHEALTH NOTE: LOCAL TITLE: [place] VIDEO CONNECT PSYCHIATRIST NOTE STANDARD TITLE: TELEHEALTH NOTE DATE OF NOTE: NOV 09, 2023@08:50 ENTRY DATE: NOV 09, 2023@08:50:31 AUTHOR: LARROW,TIANNA EXP COSIGNER: URGENCY: STATUS: COMPLETED VA Video Connect (VVC) Standard Documentation VVC Clinician Resources Only: E911 (Emergency Call Relay Center): [phone] National Veterans Crisis Line - 988 then press #1. MEMO Suicide Coordinator [phone], Ext. [phone]; Back-up Ext. [phone] [place] Police, [place] [phone] Introduction: Visit is being conducted by [place] Video Connect. [place] identified with 2 identifiers: [X] Full Name [X] Date of [ ] VA ID Card Emergency Plan: confirmed and/or provided the following information in case of emergency or technology failure. PATIENT PHONE - PHONE NUMBER [CELLULAR] - Is patient phone number correct, if not, enter below: [place]'s phone number: LAKESHA VALDESGEORGINA [address], [place], [address] [place]'s present location and address for appointment: home 's emergency contact name and phone number: see cover [place] reported that location is private and safe: Yes Informed Consent: [place] informed of the risks and benefits of Telehealth video care. [place] has the right to refuse video services. If refuses video visit, a [id number] visit will be scheduled. verbalized consent for this video visit: Yes [place] provided consent for any other persons present for visit: N/A If yes, who and relationship to patient: Secure visit: Visit was locked for security and privacy:Yes Time spent: 21-30 minutes >16 mins supportive therapy. The presents today for follow-up. PATIENT REPORT: He presents with euthymic mood. He denies symptoms of depression. There are normal interests, motivations, and energy. He is tolertaing bupropion well and denies side effects. He feels that medication is helpful. Symptoms are not as severe as they once were prior to medication. He denies irritability. He is looking forward to summer RV plans. He and will be driving to [place], [place] for the [employer] festival. Later this summer they plan on spending weeks in [place] and [facility]. He discusses a future goal of an [employer] cruise. In the fall he is planning on a knee replacement surgery. He discusses his relationship with his 10-year-old dog (nicknamjanine Arroyo ). [place] was cooperative with questions asked. Cognitive exam was grossly intact. TP was logical and organized. TC was pertinent to topic. Speech was of regular rate, rhythm, volume, and tone. Mood was euthymic and affect congruent to theme. He brightened appropriately. He denied SI and HI. Insight and judgment were intact. 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 He has talked about the [employer] in [place]. 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 He is now seeing a chiropractor and feels that it is of some benefit. SUICIDE RISK ASSESSMENT: SUICIDE INQUIRY: IDEATION: Denies ideation. Do you currently have any homicidal ideation? No SUBSTANCE USE: alcohol--one to two drinks two to three times a week, on average PSYCH MEDICATION HISTORY: [place] took one antidepressant about 10 years ago--he [...] CAP TAKE ONE CAPSULE BY MOUTH ACTIVE (S) DAILY LISINOPRIL 5MG TAB TAKE ONE TABLET BY MOUTH DAILY TO ACTIVE (S) CONTROL BLOOD PRESSURE METFORMIN HCL 500MG 24HR SA TAB TAKE ONE TABLET BY MOUTH ACTIVE TWICE DAILY FOR TYPE 2 DIABETES MELLITUS SEMAGLUTIDE 1MG/0.75ML INJ PEN 3ML INJECT 1MG ACTIVE (S) SUBCUTANEOUSLY ONCE A WEEK FOR DIABETES (REPLACES [...] maintenance. FOLLOW-UP: 12 weeks, sooner if needed Medication Reconciliation: Outpatient: Has the patient been taking medications as documented in the EMLR? YES: The patient has been taking medications as documented in the EMLR. Essential Medication List for Review used to complete this medication reconciliation. INCLUDED IN THIS LIST: Alphabetical list of active outpatient prescriptions dispensed from this [place] (local) and dispensed from another [place] or [facility] facility (remote) as well as inpatient orders [...] provider. /janine/ TIANNA NOBLE DO Psychiatrist Signed: 11/09/2023 08:56 Receipt Acknowledged By: 11/10/2023 09:44 /janine/ ALBERTINA HIGH ADVANCED ELECTRON BEAM WELDING MACHINE OPERATOR 11/09/2023 09:39 /janine/ Olamide Roth ADVANCED ELECTRON BEAM WELDING MACHINE OPERATOR TIANNA NOBLE
--- OUTSIDE RECORDS SUMMARY | 2024-06-03 09:01 | XMS_ITS | Encounter Summary ---
Author Name [facility] [place] [facility] [place] Organization [facility] [place] Address [address] [place] [address] Care Team Providers Care Nursing Education Consultant Name Role Phone ARIEL JIMENEZ Primary Care [...] Parra's Name Patient's Relationship to Policy Parra [facility] Dec 19, 2015 [id number] [phone] TANA NGO PATIENT [facility] Dec 19, 2015 [id number] [id number] [phone] LAKESHA NGO PATIENT [facility] May 29, 2012 [id number] [id number] [phone] TANA NGO PATIENT Selected Encounter This section includes the information on record at [place] for the Encounter. 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 Date/Time Primary/Secondary Diagnosis Diagnosis Name Provider Source October 18, 2023 04:09 PM PRIMARY Varus deformity, not elsewhere classified, unspecified knee MINDIKAVITHAI N [place] [facility] [place] [facility] Plan of Treatment: Future Appointments (+ 6 months) and Future Tests (+/- 45 days) The Plan of Treatment section includes future care activities for the patient from all [place] [facility]. This section includes future appointments and future orders which are active, pending or scheduled. Future Appointments This section includes appointments that were scheduled to occur 6 months from the date of the Encounter, up to a maximum of 20 appointments. The data comes from all [place] treatment facilities. Appointment Date/Time Appointment Type Appointme nt Facility Name October 26, 2023 02:00 PM AMBULATORY - MEDICINE [facility] Nov 09, 2023 08:30 AM AMBULATORY - PSYCHIATRY [facility] Feb 09, 2024 08:30 AM AMBULATORY - PSYCHIATRY [facility] Feb 12, 2024 01:30 PM [facility] [place] [facility] Feb 19, 2024 08:30 AM AMBULATORY - MEDICINE [place] C [place] [facility] Feb 21, 2024 08:40 AM AMBULATORY - MEDICINE [place] C [place] [facility] Mar 01, 2024 10:30 AM [facility] Mar 12, 2024 09:00 AM AMBULATORY - MEDICINE [place] C [place] [facility] Mar 14, 2024 02:00 PM AMBULATORY - MEDICINE [place] C [place] [facility] Mar 25, 2024 08:00 AM AMBULATORY - MEDICINE [place] C [place] [facility] Mar 27, 2024 11:20 AM AMBULATORY - MEDICINE [place] C [place] [facility] Lab Results: +/- 30 days of the encounter This section includes the Chemistry and Hematology Lab Results on record with [place] for the patient. Radiology Reports and Pathology Reports are provided separately, in subsequent sections. Lab Results This section contains the Chemistry/Hematology Results that were resulted 30 days before or 30 daysafter the date of the Encounter. Date/Time Source Result Type Result - Unit Interpretation Reference Range Comment Sep 21, 2023 07:50 AM [facility] HEMOGLOBIN A1C PANEL Specimen Type: BLOOD [...] Jun 29, 2023 02:06 PM Reporting Lab: [address] [id number] Performing Lab: [address] [address] HEMOGLOBIN A1C 5.9 H 4.0-5.6 Sep 21, 2023 07:50 AM [facility] TSH Specimen Type: SERUM No comment entered. Ordering Provider: ARIEL JIMENEZ Report Released Date/Time: Jun 29, 2023 02:06 PM Reporting Lab: [facility] [address] [address] Performing Lab: [address] [id number] TSH 1.49 u[IU]/mL 0.35-5.00 Sep 21, 2023 07:50 AM [facility] MICROALBUMIN CREATININE RATIO PANEL Specimen Type: URINE No comment entered. Ordering Provider: ARIEL JIMENEZ Report Released Date/Time: Jun 29, 2023 02:06 PM Reporting Lab: [address] [address] Performing Lab: [address] [address] MICROALBUMIN/C REATININE RATIO 8.8 mg/g 0-29.9 MICROALBUMIN,Q UANTITATIVE 0.5 mg/dL RR UNAVAIL CREATININE URINE 56.63 mg/dL Sep 21, 2023 07:50 AM [facility] BASIC METABOLIC PANEL (fasting) Specimen Type: SERUM No comment entered. Ordering Provider: ARIEL JIMENEZ Report Released Date/Time: Jun 29, 2023 02:06 PM Reporting Lab: [facility] [address] [address] Performing Lab: [facility] [address] [address] UREA NITROGEN 19 mg/dL 7-25 GLUCOSE 113 [...] and tobacco- related health factors from the [place] facility where the Encounter took place. Current Smoking Status This section includes the most current smoking, or tobacco-related health factor, from the [place] facility where the Encounter took place. Date/Time Current Smoking Status Comment Rosendo ity Jun 22, 2023 09:00 AM VA-TOBACCO USE 30 YEARS OR MORE [facility] Tobacco Use History This section includes a history of the smoking, or tobacco-related health factors, that were collected on or before the date of the Encounter. The data comes from the [place] facility where the Encounter took place. 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 This section includes ALL of a patient's completed or amended [place] Advance and Rescinded Directives. The entries below indicate that a directive exists for the patient, but an actual copy is not included with this document. The data comes from all [place] facilities. Date Advance Directives Provider Source Jun 29, 2023 ADVANCE DIRECTIVE JAMES GALLO [facility] Sep 19, 2017 ADVANCE DIRECTIVE DINA MCGINNIS [facility] Encounter Notes: All associated encounter notes This section contains the clinical notes associated to the Encounter. Date/Time Encounter Note(s) Provider Source October 18, 2023 04:04 PM PHYSICAL THERAPY N OTE: LOCAL TITLE: PHYSICAL THERAPY STANDARD TITLE: PHYSICAL THERAPY NOTE DATE OF NOTE: OCTOBER 18, 2023@16:04 ENTRY DATE: OCTOBER 18, 2023@16:05:22 AUTHOR: SYEDA OBREGON COSIGNER: URGENCY: STATUS: COMPLETED Initial Evaluation date: Aug Progress Note Date: Treatment #: 1 Treatment time: 15 mins Diagnosis: Varus Deformity, not elsewhere classified, unspecified Knee Provider: PT Treatment Precautions: Patient identified by full name and date of PROSTHETIC CHECKOUT-Physical Therapy Pt was issued his [place] Car Porter Knee brace on this date, provided education in wear and care of it when the brace is available, was provided with the phone number to the clinic should any questions arise (x) Pt is I and safe with use of equipment () Pt requires assistance: (x) Pt was educated to use, care, and safety of the equipment and demonstrated/verbalized understanding of same. (x) Pt was issued manual or written instructions. (x) Suggested pt call this therapist with any questions. x() Goal of safe use of equipment met. No further services provided at this time. () Other: Will provide education and fitting when brace is available /janine/ KELLIE VARGAS LICENSE RECEPTIONIST NURSE Signed: 10/18/2023 16:09 SYEDA OBREGON CNTRL [facility]
--- OUTSIDE RECORDS SUMMARY | 2024-06-03 09:02 | XMS_ITS ---
Author Name [facility] [place] Address [address] [place] [address] Care Team Providers Care Metal Window Frame Maker Name Role Phone ARIEL JIMENEZ Primary [...] [facility] Dec 19, 2015 [id number] TANA NGO PATIENT [facility] Dec 19, 2015 [id number] LAKESHA NGO PATIENT [facility] May 29, 2012 [id number] [phone] TANA [employer] PATIENT Selected Encounter This section includes the information on record at [place] for the Encounter. Date/Time Encounter Type Encounter Description Reason Pro vider Source Aug 28, 2023 12:00 AM Outpatient Encounter COMMUNITY CARE CONSULT IHE Encounter Template Text not used by VA Plan of Treatment: Future Appointments (+ 6 months) and Future Tests (+/- 45 days) The Plan of Treatment section includes future care activities for the patient from all [place] [facility]. This section includes future appointments and future orders which are active, pending or scheduled. Future Appointments This section includes appointments that were scheduled to occur 6 months from the date of the Encounter, up to a maximum of 20 appointments. The data comes from all [place] treatment facilities. Appointment Date/Time Appointment Type Appointme nt Facility Name Aug 29, 2023 10:43 AM AMBULATORY - MEDICINE [facility] [place] [facility] Sep 22, 2023 07:30 AM AMBULATORY - [facility] MEDICIN [place] [facility] [place] [facility] September 27, 2023 10:00 AM AMBULATORY - MEDICINE [place] [facility] [place] [facility] October 18, 2023 03:30 PM AMBULATORY - REHAB MEDICIN E [place] [facility] [place] [place] [facility] October 26, 2023 02:00 PM AMBULATORY - MEDICINE [facility] Nov 09, 2023 08:30 AM AMBULATORY - PSYCHIATRY [facility] Feb 09, 2024 08:30 AM AMBULATORY - PSYCHIATRY [facility] Feb 12, 2024 01:30 PM AMBULATORY - NONE [place] [facility] [place] [facility] Feb 19, 2024 08:30 AM AMBULATORY - MEDICINE [place] [facility] [place] [facility] Feb 21, 2024 08:40 AM AMBULATORY - MEDICINE [place] [facility] [place] [facility] Lab Results: +/- 30 days [...] Range Comment Sep 21, 2023 07:50 AM [place] [facility] [place] [facility] HEMOGLOBIN A1C PANEL Specimen [...] Jun 29, 2023 02:06 PM Reporting Lab[facility] [address] [facility] [address] Performing Lab: [facility] [address] [facility] [address] HEMOGLOBIN A1C 5.9 H 4.0-5.6 Sep 21, 2023 07:50 AM [facility] TSH Specimen Type: SERUM No comment entered. Ordering Provider: ARIEL JIMENEZ Report Released Date/Time: Jun 29, 2023 02:06 PM Reporting Lab: [facility] [address] [address] Performing Lab: [facility] [address] TSH 1.49 u[IU]/mL 0.35-5.00 Sep 21, 2023 07:50 AM [facility] MICROALBUMIN CREATININE RATIO PANEL Specimen Type: URINE No comment entered. Ordering Provider: ARIEL JIMENEZ Report Released Date/Time: Jun 29, 2023 02:06 PM Reporting Lab: [facility]N [facility] [address] [facility] [address] Performing Lab: [facility] S[facility]THN [facility]ENTERUSETS [address] [address] MICROALBUMIN/C REATININE RATIO 8.8 mg/g 0-29.9 MICROALBUMIN,Q UANTITATIVE 0.5 mg/dL RR UNAVAIL CREATININE URINE 56.63 mg/dL Sep 21, 2023 07:50 AM [facility] BASIC METABOLIC PANEL (fasting) Specimen Type: SERUM No comment entered. Ordering Provider: ARIEL JIMENEZ Report Released Date/Time: Jun 29, 2023 02:06 PM Reporting Lab: [facility] [address] [facility] [address] Performing Lab: [facility]ENTER[facility] [address] UREA NITROGEN 19 mg/dL 7-25 GLUCOSE 113 [...] and tobacco- related health factors from the [place] facility where the Encounter took place. Current Smoking Status This section includes the most current smoking, or tobacco-related health factor, from the [place] facility where the Encounter took place. Date/Time Current Smoking Status Comment Facil ity Jun 22, 2023 09:00 AM VA-TOBACCO USER SOME DAYS [facility] Tobacco Use History This section includes a history of the smoking, or tobacco-related health factors, that were collected on or before the date of the Encounter. The data comes from the [place] facility where the Encounter took place. 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 [facility] Jun 22, 2023 09:00 AM VA-TOBACCO USE MED NO [place] [facility] [place] [facility] Jun 22, 2023 09:00 AM VA-TOBACCO USER SOME DAYS [place] [facility] [place] [facility] Jan 13, 2022 02:00 PM VA-TOBACCO NEVER USED [place] [facility] [place] [facility] Jul 06, 2009 03:46 PM QUIT TOBACCO USE > 7 YEARS AGO [facility] Advance Directives: All historical and current [...] 29, 2023 ADVANCE DIRECTIVE JAMES GALLO [facility] Sep 19, 2017 ADVANCE DIRECTIVE DINA MCGINNIS [facility] Encounter Notes: All associated encounter notes This section contains the clinical notes associated to the Encounter. Date/Time Encounter Note(s) Provider Source Aug 28, 2023 12:00 AM NONVA CONSULT: LOCAL TITLE: COMMUNITY CARE-CONSULT RESULT NOTE STANDARD TITLE: NONVA CONSULT DATE OF NOTE: AUG 28, 2023 ENTRY DATE: JAN 18, 2024@08:32:24 AUTHOR: NORI VIERA EXP COSIGNER: URGENCY: STATUS: COMPLETED VistA Imaging - Scanned Document SCANNED DOCUMENT SIGNATURE NOT REQUIRED Electronically Filed: 01/18/2024 by: NORI HUGHES [facility]
--- OUTSIDE RECORDS SUMMARY | 2024-06-03 09:02 | XMS_ITS ---
Author Name [facility] [place] Address [address] [place] [address] Care Team Providers Care Order Dispatcher Name Role Phone ARIEL JIMENEZ Primary Care [...] Parra's Name Patient's Relationship to Policy Parra [facility] Dec 19, 2015 [id number] TANA NGO PATIENT [facility] Dec 19, 2015 [phone] LAKESHA NGO PATIENT [facility] May 29, 2012 [id number] [phone] TANA [employer] PATIENT Selected Encounter This section includes the information on record at [place] for the Encounter. Date/Time Encounter Type Encounter Description Reason Pro vider Source October 13, 2023 12:00 AM Outpatient Encounter COMMUNITY CARE CONSULT IHE Encounter Template Text not used by VA Plan of Treatment: Future Appointments (+ 6 months) and Future Tests (+/- 45 days) The Plan of Treatment section includes future care activities for the patient from all [place] [facility]. This section includes future appointments [...] 03:30 PM AMBULATORY - REHAB MEDICIN E [place] [facility] [place] [facility] October 26, 2023 02:00 PM [facility] Nov 09, 2023 08:30 AM AMBULATORY - PSYCHIATRY [facility] Feb 09, 2024 08:30 AM AMBULATORY - PSYCHIATRY [facility] Feb 12, 2024 01:30 PM AMBULATORY - NONE [place] [facility] [place] [facility] Feb 19, 2024 08:30 AM AMBULATORY - MEDICINE [place] [facility] [place] [facility] Feb 21, 2024 08:40 AM AMBULATORY - MEDICINE [place] [facility] [place] [facility] Mar 01, 2024 10:30 AM [facility] Mar 12, 2024 09:00 AM AMBULATORY - MEDICINE [place] [facility] [place] [facility] Mar 14, 2024 02:00 PM AMBULATORY - MEDICINE [place] [facility] [place] [facility] Mar 25, 2024 08:00 AM AMBULATORY - MEDICINE [place] [facility] [place] [facility] Mar 27, 2024 11:20 AM AMBULATORY - MEDICINE [place] [facility] [facility] Lab Results: +/- 30 days [...] Range Comment Sep 21, 2023 07:50 AM [place] [facility] [place] [facility] HEMOGLOBIN A1C PANEL Specimen Type: BLOOD [...] Jun 29, 2023 02:06 PM Reporting Lab: [facility] [address] [address] Performing Lab: [facility]ITAL[facility] [address] [address] HEMOGLOBIN A1C 5.9 H 4.0-5.6 Sep 21, 2023 07:50 AM [facility] TSH Specimen Type: SERUM No comment entered. Ordering Provider: ARIEL JIMENEZ Report Released Date/Time: Jun 29, 2023 02:06 PM Reporting Lab: [facility] [address] [address] Performing Lab: [facility]USE[address] [address] TSH 1.49 u[IU]/mL 0.35-5.00 Sep 21, 2023 07:50 AM [facility] MICROALBUMIN CREATININE RATIO PANEL Specimen Type: URINE No comment entered. Ordering Provider: ARIEL JIMENEZ Report Released Date/Time: Jun 29, 2023 02:06 PM Reporting Lab: [facility] [address] Performing Lab: [facility]USE[address] [address] MICROALBUMIN/C REATININE RATIO 8.8 mg/g 0-29.9 MICROALBUMIN,Q UANTITATIVE 0.5 mg/dL RR UNAVAIL CREATININE URINE 56.63 mg/dL Sep 21, 2023 07:50 AM [facility] BASIC METABOLIC PANEL (fasting) Specimen Type: SERUM No comment entered. Ordering Provider: ARIEL JIMENEZ Report Released Date/Time: Jun 29, 2023 02:06 PM Reporting Lab: [facility] [place] [place] [address] Performing Lab: [place] [facility] [address] [facility] [address] UREA NITROGEN 19 mg/dL 7-25 GLUCOSE 113 [...] 2023 09:00 AM VA-TOBACCO USER SOME DAYS [facility] Tobacco Use History This section includes a history of the smoking, or tobacco-related health factors, that were collected on or before the date of the Encounter. The data comes from the [place] facility where the Encounter took place. 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 [place] [facility] [place] [facility] Jun 22, 2023 09:00 AM VA-TOBACCO USE MED NO [place] [facility] [place] [facility] Jun 22, 2023 09:00 AM VA-TOBACCO USER SOME DAYS [place] [facility] [place] [facility] Jan 13, 2022 02:00 PM VA-TOBACCO NEVER USED [place] [facility] [place] [facility] Jul 06, 2009 03:46 PM QUIT TOBACCO USE > 7 YEARS AGO [facility] Advance Directives: All historical and current [...] Encounter Note(s) Provider Source October 13, 2023 12:00 AM NONVA CONSULT: LOCAL TITLE: COMMUNITY CARE-CONSULT RESULT NOTE STANDARD TITLE: NONVA CONSULT DATE OF NOTE: OCTOBER 13, 2023 ENTRY DATE: JAN 18, 2024@08:36:26 AUTHOR: NORI VIERA EXP COSIGNER: URGENCY: STATUS: COMPLETED VistA Imaging - Scanned Document SCANNED DOCUMENT SIGNATURE NOT REQUIRED Electronically Filed: 01/18/2024 by: NORI HUGHES [facility]
--- OUTSIDE RECORDS SUMMARY | 2024-06-03 09:02 | XMS_ITS | Encounter Summary ---
Author Name [place] Address [address] [place] [address] Care Team Providers Care Corn Cutter Name Role Phone ARIEL JIMENEZ Primary Care [...] Parra's Name Patient's Relationship to Policy Parra [facility] Dec 19, 2015 [id number] TANA NGO PATIENT [facility] Dec 19, 2015 [id number] LAKESHA NGO PATIENT [facility] May 29, 2012 [id number] [phone] TANA NGO PATIENT Selected Encounter This section includes the information on record at [place] for the Encounter. Date/Time Encounter Type Encounter Description Reason Pro vider Source October 03, 2023 12:00 AM Outpatient Encounter COMMUNITY CARE CONSULT IHE Encounter Template Text not used by VA Plan of Treatment: Future Appointments (+ 6 months) and Future Tests (+/- 45 days) The Plan of Treatment section includes future care activities for the patient from all [place] treatments[facility]. This section includes future appointments [...] REHAB MEDICIN E [place] [facility] [place] [facility] October 26, 2023 02:00 PM AMBULATORY - MEDICINE [facility] Nov 09, 2023 08:30 AM AMBULATORY - PSYCHIATRY [facility] Feb 09, 2024 08:30 AM AMBULATORY - PSYCHIATRY [facility] Feb 12, 2024 01:30 PM AMBULATORY - NONE [place] [facility] [place] [facility] Feb 19, 2024 08:30 AM AMBULATORY - MEDICINE CT C [place] [place] [facility] Feb 21, 2024 08:40 AM AMBULATORY - MEDICINE CT C [place] [place] [facility] Mar 01, 2024 10:30 AM [facility]UL[facility] Mar 12, 2024 09:00 AM AMBULATORY - MEDICINE CT C [place] [facility] Mar 14, 2024 02:00 PM AMBULATORY - MEDICINE CT C [place] [facility] Mar 25, 2024 08:00 AM AMBULATORY - MEDICINE CT C [place] [facility] Mar 27, 2024 11:20 AM AMBULATORY - MEDICINE CT C [place] [facility] Lab Results: +/- 30 days of the encounter This section includes the Chemistry and Hematology Lab Results on record with CT for the patient. Radiology Reports and Pathology Reports are provided separately, in subsequent sections. Lab Results This section contains the Chemistry/Hematology Results that were resulted 30 days before or 30 daysafter the date of the Encounter. Date/Time Source Result Type Result - Unit Interpretation Reference Range Comment Sep 21, 2023 07:[address] [facility] [place] [facility] HEMOGLOBIN A1C PANEL Specimen Type: [...] Jun 29, 2023 02:06 PM Reporting Lab: [facility] [address] [address] Performing Lab: [facility] [address] [address] HEMOGLOBIN A1C 5.9 H 4.0-5.6 Sep 21, 2023 07:50 AM [facility] TSH Specimen Type: SERUM No comment entered. Ordering Provider: ARIEL JIMENEZ Report Released Date/Time: Jun 29, 2023 02:06 PM Reporting Lab: [facility] [address] [address] Performing Lab: [facility] [address] TSH 1.49 u[IU]/mL 0.35-5.00 Sep 21, 2023 07:50 AM [facility] MICROALBUMIN CREATININE RATIO PANEL Specimen Type: URINE No comment entered. Ordering Provider: ARIEL JIMENEZ Report Released Date/Time: Jun 29, 2023 02:06 PM Reporting Lab: [facility] [address] Performing Lab: [facility] [address] MICROALBUMIN/C REATININE RATIO 8.8 mg/g 0-29.9 MICROALBUMIN,Q UANTITATIVE 0.5 mg/dL RR UNAVAIL CREATININE URINE 56.63 mg/dL Sep 21, 2023 07:50 AM [facility] BASIC METABOLIC PANEL (fasting) Specimen Type: SERUM No comment entered. Ordering Provider: ARIEL JIMENEZ Report Released Date/Time: Jun 29, 2023 02:06 PM Reporting Lab: [facility] [place] [place] [address] Performing Lab: [place] [facility] [address] [facility] [address] UREA NITROGEN 19 mg/dL 7-25 GLUCOSE 113 [...] 2023 09:00 AM VA-TOBACCO USER SOME DAYS [facility]ITALUSE[facility] Tobacco Use History This section includes a history of the smoking, or tobacco-related health factors, that were collected on or before the date of the Encounter. The data comes from the [place] facility where the Encounter took place. 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 CT [facility] [place] [facility] Jun 22, 2023 09:00 AM VA-TOBACCO USE MED NO CT [facility] [place] [facility] Jun 22, 2023 09:00 AM VA-TOBACCO USER SOME DAYS CT [facility] [place] [facility] Jan 13, 2022 02:00 PM VA-TOBACCO NEVER USED CT CNTR [place] [facility] Jul 06, 2009 03:46 PM QUIT TOBACCO USE > 7 YEARS AGO [facility] Advance Directives: All historical and current [...] Jun 29, 2023 ADVANCE DIRECTIVE JAMES GALLO [facility] Sep 19, 2017 ADVANCE DIRECTIVE DINA MCGINNIS [facility] Encounter Notes: All associated encounter notes This section contains the clinical notes associated to the Encounter. Date/Time Encounter Note(s) Provider Source October 03, 2023 12:00 AM NONVA CONSULT: LOCAL TITLE: COMMUNITY CARE-CONSULT RESULT NOTE STANDARD TITLE: NONVA CONSULT DATE OF NOTE: OCTOBER 03, 2023 ENTRY DATE: JAN 18, 2024@08:35:04 AUTHOR: NORI VIERA EXP COSIGNER: URGENCY: STATUS: COMPLETED VistA Imaging - Scanned Document SCANNED DOCUMENT SIGNATURE NOT REQUIRED Electronically Filed: 01/18/2024 by: NORI HUGHES [facility]
--- OUTSIDE RECORDS SUMMARY | 2024-06-03 09:02 | XMS_ITS ---
Author Name [place] Address [address] [place] [address] Care Team Providers Care Program Advisor Name Role Phone ARIEL JIMENEZ Primary Care [...] Parra's Name Patient's Relationship to Policy Parra [facility] Dec 19, 2015 [id number] [employer] PATIENT [facility] Dec 19, 2015 [id number] [employer] PATIENT [facility] May 29, 2012 [id number] [employer] PATIENT Selected Encounter This section includes the information on record at [place] for the Encounter. Date/Time Encounter Type Encounter Description Reason Pro vider Source Sep 25, 2023 12:00 AM Outpatient Encounter COMMUNITY CARE CONSULT IHE Encounter Template Text not used by [facility] Plan of Treatment: Future Appointments (+ 6 months) and Future Tests (+/- 45 days) The Plan of Treatment section includes future care [facility] the [facility] [place] [facility] This section includes future appointments and future orders which are active, pending or scheduled. Future Appointments This section includes appointments that were scheduled to occur 6 months from the date of the Encounter, up to a maximum of 20 appointments. The data comes from all [place] treatment facilities. Appointment Date/Time Appointment Type Appointme nt Facility Name September 27, 2023 10:00 AM AMBULATORY [place]ICINE [place] [facility] [place] [facility] October 18, 2023 03:30 PM AMBULATORY - REHAB MEDICIN [place] [facility] [place] [facility] October 26, 2023 02:00 PM AMBULATORY - MEDICINE [facility] Nov 09, 2023 08:30 AM AMBULATORY - PSYCHIATRY [facility] Feb 09, 2024 08:30 AM AMBULATORY - PSYCHIATRY [facility] Feb 12, 2024 01:30 PM AMBULATORY - NONE [place] [facility] [place] [facility] Feb 19, 2024 08:30 AM AMBULATORY [place]IC[place] [facility] [place] [facility] Feb 21, 2024 08:40 AM AM[place]ULATORY [place]ICINE [place] [facility] [place] [facility] Mar 01, 2024 10:30 AM [facility] Mar 12, 2024 09:00 AM AM[place]ORY [place] [facility] [place] [facility] Mar 14, 2024 02:00 PM AMBULATORY [place]ICINE [place] [facility] [place] [facility] Mar 25, 2024 08:00 AM AMBULATORY - MEDICINE [facility] [place] [facility] Lab Results: +/- 30 days of the encounter This section includes the Chemistry and Hematology Lab Results on record with [place] for the patient. Radiology Reports and Pathology Reports are provided separately, in subsequent sections. Lab Results This section contains the Chemistry/Hematology Results that were resulted 30 days before or 30 daysafter the date of the Encounter. Date/Time Source Result Type Result - Unit Interpretation Reference Range Comment Sep 21, 2023 07:50 AM [place] [facility] [place] [facility] HEMOGLOBIN A1C PANEL Specimen Type: BLOOD [...] Jun 29, 2023 02:06 PM Reporting Lab: [facility] [address] [address] Performing Lab[facility] [address] [address] HEMOGLOBIN A1C 5.9 H 4.0-5.6 Sep 21, 2023 07:50 AM [facility] TSH Specimen Type: SERUM No comment entered. Ordering Provider: ARIEL JIMENEZ Report Released Date/Time: Jun 29, 2023 02:06 PM Reporting Lab: [facility] [address] [address] Performing Lab: [facility] [address] TSH 1.49 u[IU]/mL 0.35-5.00 Sep 21, 2023 07:50 AM [facility] MICROALBUMIN CREATININE RATIO PANEL Specimen Type: URINE No comment entered. Ordering Provider: ARIEL JIMENEZ Report Released Date/Time: Jun 29, 2023 02:06 PM Reporting Lab: [facility] [address] Performing Lab: [facility] [address] MICROALBUMIN/C REATININE RATIO 8.8 mg/g 0-29.9 MICROALBUMIN,Q UANTITATIVE 0.5 mg/dL RR UNAVAIL CREATININE URINE 56.63 mg/dL Sep 21, 2023 07:50 AM [facility] BASIC METABOLIC PANEL (fasting) Specimen Type: SERUM No comment entered. Ordering Provider: ARIEL JIMENEZ Report Released Date/Time: Jun 29, 2023 02:06 PM Reporting Lab: [facility] [place] [place] [address] Performing Lab: [place] [facility] [facility] [place] [facility] [address] [facility] [address] UREA NITROGEN 19 mg/dL 7-25 GLUCOSE 113 [...] and tobacco- related health factors from the [place] facility where the Encounter took place. Current Smoking Status This section includes the most current smoking, or tobacco-related health factor, from the [place] facility where the Encounter took place. Date/Time Current Smoking Status Comment Facil ity Jun 22, 2023 09:00 AM VA-TOBACCO DOESNT USE WI 30 MIN WAKEUP [facility] Tobacco Use History This section includes a history of the smoking, or tobacco-related health factors, that were collected on or before the date of the Encounter. The data comes from the [place] facility where the Encounter took place. 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 NO [place] [facility] [place] [facility] Jun 22, 2023 09:00 AM VA-TOBACCO USE MED NO [place] [facility] [place] [facility] Jun 22, 2023 09:00 AM VA-TOBACCO USER SOME DAYS [place] [facility] [place] [facility] Jan 13, 2022 02:00 PM VA-TOBACCO NEVER USED [place] [facility] [place] [facility] Jul 06, 2009 03:46 PM QUIT TOBACCO USE > 7 YEARS AGO [facility] Advance Directives: All historical and current Section Date Range: From patient's date of to the date document was created. This section includes ALL of a patient's completed or amended [place] Advance and Rescinded Directives. The entries below indicate that a directive exists for the patient, but an actual copy is not included with this document. The data comes from all [place] facilities. Date Advance Directives Provider Source Jun 29, 2023 ADVANCE DIRECTIVE JAEMS GALLO [facility] Sep 19, 2017 ADVANCE DIRECTIVE DINA MCGINNIS [facility] Encounter Notes: All associated encounter notes This section contains the clinical notes associated to the Encounter. Date/Time Encounter Note(s) Provider Source Sep 25, 2023 12:00 AM NONVA CONSULT: LOCAL TITLE: COMMUNITY CARE-CONSULT RESULT NOTE STANDARD TITLE: NONVA CONSULT DATE OF NOTE: SEP 25, 2023 ENTRY DATE: JAN 18, 2024@08:33:34 AUTHOR: NORI VIERA EXP COSIGNER: URGENCY: STATUS: COMPLETED VistA Imaging - Scanned Document SCANNED DOCUMENT SIGNATURE NOT REQUIRED Electronically Filed: 01/18/2024 by: NORI HUGHES [facility]
--- OUTSIDE RECORDS SUMMARY | 2024-06-03 09:03 | XMS_ITS | Encounter Summary ---
Author Name [facility] [place] Address [address] [place] [id number] Care Team Providers Care Recycling Collections Driver Name Role Phone ARIEL JIMENEZ Primary Care [...] Name Patient's Relationship to Policy Parra [facility] Dec 19, 2015 [id number] [employer] PATIENT [facility] Dec 19, 2015 [id number] [phone] LAKESHA NGO [facility] May 29, 2012 [id number] [employer] PATIENT Selected Encounter This section includes the information on record at [place] for the Encounter. Date/Time Encounter Type Encounter Description Reason Provider Source Feb 09, 2024 08:30 AM OFFICE O/P EST MOD 30 MIN [facility] - IND ICD-10-CM F43.23 Adjustment disorder with mixed anxiety and depressed mood TIANNA NOBLE Sammy Encounter Template Text not used by [place] Assessments - Encounter Diagnoses This section includes the primary and secondary diagnoses documented for the Encounter. Date/Time Primary/Secondary Diagnosis Diagnosis Name Provider Source Feb 09, 2024 08:57 AM PRIMARY Adjustment disorder with mixed anxiety and depressed mood TIANNA NOBLE Plan of Treatment: Future Appointments (+ 6 months) and Future Tests (+/- 45 days) The Plan of Treatment section includes future care activities for the patient from all [place] treatmentfacilities. This section includes future appointments and future orders which are active, pending or scheduled. Future Appointments This section includes appointments that were scheduled to occur 6 months from the date of the Encounter, up to a maximum of 20 appointments. The data comes from all [place] treatment facilities. Appointment Date/Time Appointment Type Appointme nt Facility Name Feb 12, 2024 01:30 PM AMBULATORY - NONE [place] [facility] [place] [facility] Feb 19, 2024 08:30 AM AMBULATORY [place]IC[place] [facility] [facility] Feb 21, 2024 08:40 AM AMBULATORY [place]ICINE [place] [facility] [place] [facility] Mar 01, 2024 10:30 AM [facility] [facility] Mar 12, 2024 09:00 AM AMBULATORY [place]ICINE [place] [facility] [facility] Mar 14, 2024 02:00 PM AMBULATORY [place]ICINE [place] [facility] [facility] Mar 25, 2024 08:00 AM AMBULATORY [place]ICINE [place] [facility] [facility] Mar 27, 2024 11:20 AM AMBULATORY [place]ICINE [place] [facility] [facility] May 03, 2024 10:00 AM AM[place]ORY - [place]IC[place] [facility] May 10, 2024 08:30 AM AMBULATORY - PSYCHIATRY [facility] Jul 11, 2024 10:30 AM AMBULATORY - NONE [place] [facility] [place] [facility] Aug 02, 2024 10:00 AM AMBULATORY - [place]ICINE [place] [facility] Active, Pending, and Scheduled Orders This section includes a listing of several types of active, pending, and scheduled orders, including clinic medications orders, diagnostic test orders, procedure orders and consult orders; where the start date of the order is 45 days before the date of the Encounter or 45 days after the date of theEncounter. The data comes from all [place] treatment facilities. Test Date/Time Test Type Test Details Facility Name Mar 15, 2024 01:18 PM Consult Order COMMUNITY CARE-COLONOSCOPY SURVEILLANCE Cons Sports Agent's Choice [place] [facility] [facility] Mar 25, 2024 12:57 PM Consult Order COMMUNITY CARE-GEC SKILLED HOME CARE Cons Sports Agent's Choice [place] [facility] Social History: Smoking Status (Most current) and Tobacco Use (All prior to encounter date) This section includes the most current, and the historical, smoking and tobacco- related health factors from the [place] facility where the Encounter took place. Current Smoking Status This section includes the most current smoking, or tobacco-related health factor, from the [place] facility where the Encounter took place. Date/Time Current Smoking Status Comment Facil ity October 23, 2020 01:00 PM VA-TOBACCO NEVER USED [facility] Tobacco Use History This section includes a history of the smoking, or tobacco-related health factors, that were collected on or before the date of the Encounter. The data comes from the [place] facility where the Encounter took place. Date/Time Smoking Status/Tobacco Use Comment F acility Sep 12, 2019 04:13 PM VA-TOBACCO FORMER USER [facility] Sep 12, 2019 04:13 PM VA-TOBACCO QUIT 15 YRS OR MORE [facility] Sep 24, 2018 10:32 AM VA-TOBACCO DOESNT USE WI 30 MIN WAKEUP [facility] Sep 24, 2018 10:32 AM VA-TOBACCO USE > 1 5 LESS THAN 30 YEARS [facility] Sep 24, 2018 10:32 AM VA-TOBACCO USE ADVICE [facility] Sep 24, 2018 10:32 AM VA-TOBACCO USE INFORMATION ASSOC NO [facility] Sep 24, 2018 10:32 AM VA-TOBACCO USE MED NO [facility] Sep 24, 2018 10:32 AM VA-TOBACCO USER SOME DAYS [facility] May 04, 2017 11:25 AM LIFETIME NON-TOBACCO USER [facility] May 31, 2016 02:32 PM LIFETIME NON-TOBACCO USER [facility] Jun 04, 2015 09:46 AM QUIT TOBACCO USE > 7 YEARS AGO [id number] smoked [facility] May 11, 2015 02:01 PM CURRENT SMOKER 1 cigar qomonth [facility] Advance Directives: All historical and current Section Date Range: From patient's date of to the date document was created. This section includes ALL of a patient's completed or amended [place] Advance and Rescinded Directives. The entries below indicate that a directive exists for the patient, but an actual copy is not included with this document. The data comes from all [place] facilities. Date Advance Directives Provider Source Jun 29, 2023 ADVANCE DIRECTIVE JAMES GALLO [facility] [place] Sep 19, 2017 ADVANCE DIRECTIVE DINA MCGINNIS [facility] [place] Encounter Notes: All associated encounter notes This section contains the clinical notes associated to the Encounter. Date/Time Encounter Note(s) Provider Source Feb 09, 2024 08:36 AM TELEHEALTH NOTE: LOCAL TITLE: [place] VIDEO CONNECT PSYCHIATRIST NOTE STANDARD TITLE: TELEHEALTH NOTE DATE OF NOTE: FEB 09, 2024@08:36 ENTRY DATE: FEB 09, 2024@08:36:33 AUTHOR: TIANNA NOBLE COSIGNER: URGENCY: STATUS: COMPLETED [facility] Video Connect (VVC) Standard Documentation VVC Clinician Resources Only: E911 (Emergency Call Relay Center): [phone] [facility] Crisis Line - 988 then press #1. [facility] Suicide Coordinator [phone], Ext. [phone]; Back-up Ext. [phone] [place] Police, [place] [phone] Introduction: Visit is being conducted by [place]. identified with 2 identifiers: [X] Full Name [X] Date of [ ] [place] ID Card Emergency Plan: [place] confirmed and/or provided the following information in case of emergency or technology failure. PATIENT PHONE - PHONE NUMBER [CELLULAR] - Is patient phone number correct, if not, enter below: [place]'s phone number: LAKESHA Green [address], [place], [address] 's present location and address for appointment: home [place]'s emergency contact name and phone number: see cover [place] reported that location is private and safe: Yes Informed Consent: [place] informed of the risks and benefits of Telehealth video care. has the right to refuse video services. If refuses video visit, a [id number] visit will be scheduled. verbalized consent for this video visit: Yes provided consent for any other persons present for visit: N/A If yes, who and relationship to patient: Secure visit: Visit was locked for security and privacy:Yes Time spent: 21-30 minutes >16 mins supportive therapy (including empathic listening, insight building, and psychoeducation). The zheng presents today for follow-up. PATIENT REPORT: He presents with fair mood. He denies symptoms of depression, though notes feeling down some days with reduced structure. There are normal interests, motivations, and energy. He is tolertaing bupropion well and denies side effects. He feels that medication is helpful. Symptoms are not as severe as they once were prior to medication. He denies irritability. Zheng is enjoying his penitentiary. He had an enjoyable summer traveling and camping in his with . Zheng enjoys [employer] in [place], [place]. He discusses a future goal of an [employer]. 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 He feels it will improve his mood also. On April 12 he is planning on a knee replacement surgery at [facility]. He discusses his relationship with his 10-year-old dog ( Tommy, nicknamed Dina ). Zheng was cooperative with questions asked. Cognitive exam was grossly intact. TP was logical and organized. TC was pertinent to topic. Speech was of regular rate, rhythm, volume, and tone. Mood was euthymic and affect congruent to theme. He brightened appropriately. He denied SI and HI. Insight and judgment were intact. 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 He has talked about the [employer] [place] in [place]. 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 He is now seeing a chiropractor and feels that it is of some benefit. SUICIDE RISK ASSESSMENT: SUICIDE INQUIRY: IDEATION: Denies ideation. Do you currently have any homicidal ideation? No SUBSTANCE USE: alcohol--one to two drinks two to three times a week, on average. He sometimes drinks a few more. PSYCH MEDICATION HISTORY: [place] took one antidepressant about 10 years ago--he cannot recall the name. It caused ED. Trazodone--next-day sedation sertraline--was helpful, but probably contributed to ED ACTIVE OUTPATIENT MEDICATIONS (including Supplies): Active Outpatient Medications (including Supplies): ACCU-CHEK GUIDE (GLUCOSE) TEST STRIP USE 1 STRIP TO TEST ACTIVE BLOOD SUGARS ONCE DAILY ATORVASTATIN CALCIUM 80MG TAB TAKE ONE-HALF TABLET BY ACTIVE MOUTH EVERY EVENING AFTER SUPPER FOR CHOLESTEROL BUPROPION HCL 150MG 12HR SA TAB TAKE ONE TABLET BY MOUTH ACTIVE EVERY MORNING FOR MOOD EMPAGLIFLOZIN 10MG TAB TAKE ONE TABLET BY MOUTH ONCE DAILY ACTIVE FOR DIABETES HYDROCHLOROTHIAZIDE 12.5MG CAP TAKE ONE CAPSULE BY MOUTH ACTIVE DAILY LISINOPRIL 5MG TAB TAKE ONE TABLET BY MOUTH DAILY TO ACTIVE CONTROL BLOOD PRESSURE METFORMIN HCL 500MG 24HR [...] time due to travel. PCP prescribes sildenafil. He feels that part-time work will be helpful. At a previous visit he voiced concerns [...] provider. /janine/ TIANNA NOBLE DO Psychiatrist Signed: 02/09/2024 08:58 Receipt Acknowledged By: 02/09/2024 09:18 /janine/ Olamide [place] ADVANCED DISABILITY COORDINATOR TIANNA NOBLE
--- OUTSIDE RECORDS SUMMARY | 2024-06-03 09:03 | XMS_ITS ---
Author Name [facility] [place] [facility] [place] Organization [facility] [place] Address [address] [place] [address] Care Team Providers Care Clothes Model Name Role Phone ARIEL JIMENEZ Primary Care [...] Policy Parra [facility] Dec 19, 2015 [id number] [phone] TANA NGO PATIENT [facility] Dec 19, 2015 [id number] LAKESHA NGO PATIENT [facility] May 29, 2012 [id number] TANA [employer] PATIENT Selected Encounter This section includes the information on record at MD for the Encounter. Date/Time Encounter Type Encounter Description Reason Pro vider Source Feb 02, 2024 10:42 AM Outpatient Encounter COMMUNITY CARE CONSULT IHE Encounter Template Text not used by VA Plan of Treatment: Future Appointments (+ 6 months) and Future Tests (+/- 45 days) The Plan of Treatment section includes future care activities for the patient from all [facility] This section includes future appointments and future orders which are active, pending or scheduled. Future Appointments This section includes appointments that were scheduled to occur 6 months from the date of the Encounter, up to a maximum of 20 appointments. The data comes from all [facility]. Appointment Date/Time Appointment Type Appointme nt Facility Name Feb 09, 2024 08:30 AM AMBULATORY - PSYCHIATRY [facility] Feb 12, 2024 01:30 PM AMBULATORY - NONE [place] [facility] [place] [facility] Feb 19, 2024 08:30 AM AMBULATORY - MEDICINE MD [facility] [place] [facility] Feb 21, 2024 08:40 AM AMBULATORY - MEDICINE [place] [facility] [place] [facility] Mar 01, 2024 10:30 AM AMBULATORY - [place]ICINE [place] [facility] Mar 12, 2024 09:00 AM AMBULATORY - MEDICINE [place] [facility] [place] [facility] Mar 14, 2024 02:00 PM AMBULATORY - MEDICINE MD [facility] [place] [facility] Mar 25, 2024 08:00 AM AMBULATORY - MEDICINE MD [facility] [place] [facility] Mar 27, 2024 11:20 AM AMBULATORY - MEDICINE MD [facility] [place] [facility] May 03, 2024 10:00 AM AMBULATORY - MEDICINE [place] [facility] May 10, 2024 08:30 AM AMBULATORY - PSYCHIATRY [facility] Jul 11, 2024 10:30 AM [facility] Active, Pending, and Scheduled Orders This section includes a listing of several types of active, pending, and scheduled orders, including clinic medications orders, diagnostic test orders, procedure orders and consult orders; where the start date of the order is 45 days before the date of the Encounter or 45 days after the date of theEncounter. The data comes from all [facility]. Test Date/Time Test Type Test Details Facility Name Mar 15, 2024 01:18 PM Consult Order COMMUNITY CARE-COLONOSCOPY SURVEILLANCE Cons Lean [employer] Black Belt's Choice [facility] Social History: Smoking Status (Most current) and Tobacco Use (All prior to encounter date) This section includes the most current, and the historical, smoking and tobacco- related health factors from the MD facility where the Encounter took place. Current Smoking Status This section includes the most current smoking, or tobacco-related health factor, from the MD facility where the Encounter took place. Date/Time Current Smoking Status Comment Facil ity Jun 22, 2023 09:00 AM VA-TOBACCO USE 30 YEARS [facility] Tobacco Use History This section includes a history of the smoking, or tobacco-related health factors, that were collected on or before the date of the Encounter. The data comes from the MD facility where the Encounter took place. Date/Time Smoking Status/Tobacco Use Comment F acility Jun 22, 2023 09:00 AM VA-TOBACCO USE 30 YEARS OR MORE [facility] Jun 22, 2023 09:00 AM VA-TOBACCO USE ADVICE [facility] Jun 22, 2023 09:00 AM VA-TOBACCO USE EVP BUSINESS DEVELOPMENT NO [place] [facility] [place] [facility] Jun 22, 2023 09:00 AM VA-TOBACCO USE MED NO MD [facility] [place] [facility] Jun 22, 2023 09:00 AM VA-TOBACCO USER SOME DAYS [place] [facility] [place] [facility] Jan 13, 2022 02:00 PM VA-TOBACCO NEVER USED [facility] Jul 06, 2009 03:46 PM QUIT TOBACCO USE > 7 YEARS AGO [facility] Advance Directives: All historical and current Section Date Range: From patient's date of to the date document was created. This section includes ALL of a patient's completed or amended MD Advance and Rescinded Directives. The entries below indicate that a directive exists for the patient, but an actual copy is not included with this document. The data comes from all MD facilities. Date Advance Directives Provider Source Jun 29, 2023 ADVANCE DIRECTIVE JAMES GALLO [facility] Sep 19, 2017 ADVANCE DIRECTIVE DINA MCGINNIS [facility] Encounter Notes: All associated encounter notes This section contains the clinical notes associated to the Encounter. Date/Time Encounter Note(s) Provider Source Feb 02, 2024 10:42 AM ADMINISTRATIVE NOTE: LOCAL TITLE: ADMINISTRATIVE NOTE STANDARD TITLE: ADMINISTRATIVE NOTE DATE OF NOTE: FEB 02, 2024@10:42 ENTRY DATE: FEB 02, 2024@10:42:39 AUTHOR: TRUPTI HORNE COSIGNER: URGENCY: STATUS: COMPLETED ADMINISTRATIVE NOTE Has ADDENDA Digital Sales Assistant received phone call from Lynne at [facility]. is scheduled for right total knee replacement 04/10/[address] Fritz. Please contact to schedule a pre-op clearance appointment with their PCP. [facility] orthopedics is requesting labs, and EKG. Please call Lynne back with Veterans pre-op clearance appointment date once scheduled. Lynne at [facility]: /janine/ TRUPTI HORNE [employer] DEPART[employer] HEAD Signed: 02/02/2024 10:45 Receipt Acknowledged By: 02/02/2024 13:51 /es/ JAXSON HARDEN LPN License Practical Nurse 02/02/2024 15:51 /es/ PRADEEP GALVEZ [facility] 02/02/2024 10:52 /es/ YOGI GOODWIN RN REGISTERED NURSE 02/02/2024 ADDENDUM STATUS: COMPLETED ALERT TO [facility] to please schedule for pre-op clearance appt. /janine/ YOGI GOODWIN RN REGISTERED NURSE Signed: 02/02/2024 10:52 02/02/2024 ADDENDUM STATUS: COMPLETED [facility] CALLED ON TELEPHONE AND SCHEDULED AN APPT SET FOR February @ 2PM. /janine/ PRADEEP GALVEZ [facility] Signed: 02/02/2024 15:58 TRUPTI HORNE [facility]
--- OUTSIDE RECORDS SUMMARY | 2024-06-03 09:03 | XMS_ITS ---
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 Date/Time Encounter Type Encounter Description Reason Provider Source Feb 09, 2024 02:05 PM Outpatient Encounter PRIMARY CARE/MEDICINE YOGI DOMINGUEZ Encounter Template Text not used by [place] Plan of Treatment: Future Appointments (+ 6 months) and Future Tests (+/- 45 days) The Plan of Treatment section includes future care activities for the patient from all [place] [facility]. This section includes future appointments and [...] 12, 2024 01:30 PM AMBULATORY - NONE [place] [facility] [place] [place] [facility] Feb 19, 2024 08:30 AM AMBULATORY - MEDICINE [place] [facility] [place] [facility] Feb 21, 2024 08:40 AM AMBULATORY - MEDICINE [place] [facility] [place] [facility] Mar 01, 2024 10:30 AM [facility] Mar 12, 2024 09:00 AM AMBULATORY - MEDICINE [place] [facility] [place] [facility] Mar 14, 2024 02:00 PM AMBULATORY - MEDICINE [place] [facility] [place] [facility] Mar 25, 2024 08:00 AM AMBULATORY - MEDICINE [facility] [place] [facility] Mar 27, 2024 11:20 AM AMBULATORY - MEDICINE [place] [facility] [place] [facility] May 03, 2024 10:00 AM AMBULATORY - MEDICINE [place] [facility] May 10, 2024 08:30 AM AMBULATORY - PSYCHIATRY [facility] Jul 11, 2024 10:30 AM AMBULATORY - NONE [place] [facility] [place] [facility] Aug 02, 2024 10:00 AM AMBULATORY - MEDICINE [facility] [place] Active, Pending, and Scheduled Orders This section includes a listing of several types of active, pending, and scheduled orders, including clinic medications orders, diagnostic test orders, procedure orders and consult orders; where the start date of the order is 45 days before the date of the Encounter or 45 days after the date of theEncounter. The data comes from all [facility]. Test Date/Time Test Type Test Details Facility Name Mar 15, 2024 01:18 PM Consult Order COMMUNITY CARE-COLONOSCOPY SURVEILLANCE Cons Consumer Sales Representative's Choice [place] [facility] [place] [facility] Mar 25, 2024 12:57 PM Consult Order COMMUNITY CARE-GEC SKILLED HOME CARE Cons Consumer Sales Representative's Choice [facility] Social History: Smoking Status (Most [...] AM VA-TOBACCO USE 30 YEARS OR MORE [facility] Tobacco Use History This section includes a history of the smoking, or tobacco-related health factors, that were collected on or before the date of the Encounter. The data comes from the [place] facility where the Encounter took place. 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 [facility] Jun 22, 2023 09:00 AM VA-TOBACCO USE MED NO [facility] Jun 22, 2023 09:00 AM VA-TOBACCO USER SOME DAYS [facility] Jan 13, 2022 02:00 PM VA-TOBACCO NEVER USED [facility] Jul 06, 2009 03:46 PM QUIT TOBACCO USE > 7 YEARS AGO [facility] Advance Directives: All historical and [...] Jun 29, 2023 ADVANCE DIRECTIVE JAMES GALLO [facility] Sep 19, 2017 ADVANCE DIRECTIVE DINA MCGINNIS [place] [facility] Encounter Notes: All associated encounter notes This section contains the clinical notes associated to the Encounter. Date/Time Encounter Note(s) Provider Source Feb 09, 2024 03:41 PM PRIMARY CARE SECURE MESSAGING: LOCAL TITLE: PRIMARY CARE SECURE MESSAGING STANDARD TITLE: PRIMARY CARE SECURE MESSAGING DATE OF NOTE: FEB 09, 2024@15:41 ENTRY DATE: FEB 09, 2024@15:41:23 AUTHOR: YOGI DOMINGUEZ EXP COSIGNER: URGENCY: STATUS: COMPLETED ------Original Message ----- Sent: 02/09/2024 03:00 PM ET From: LAKESHA SQUIRES To: Alex INFANTE _ [facility] Subject: General:Sleep Medicine Access assistance Good afternoon, Coincidentally, I got a message back from sleep medicine in [place] 10 minutes after I sent you my message to you. Apparently I have an appointment there February 28 in [place]. They're going to use my sleep study from before summer. Have my fingers crossed. Thank you for your quick response. Vijay ------Original Message ----- Sent: 02/09/2024 03:41 PM ET From: YOGI DOMINGUEZ To: LAKESHA SQUIRES Subject: General:Sleep Medicine Access assistance Good Afternoon Mr. Squires, That's GREAT news!!!! Enjoy Your Weekend, Yogi Dominguez RN /janine/ YOGI DOMINGUEZ RN REGISTERED NURSE Signed: 02/09/2024 15:41 [facility]UEZ [facility] Feb 09, 2024 03:17 PM ADDENDUM: LOCAL TITLE: Addendum STANDARD TITLE: ADDENDUM DATE OF NOTE: FEB 09, 2024@15:17:49 ENTRY DATE: FEB 09, 2024@15:17:50 AUTHOR: ARIEL INFANTE EXP COSIGNER: URGENCY: STATUS: [facility] f/u with local respiratory department which happened on 10/26/23 [place], [place]- and note was: 1. Severe sleep apnea syndrome complicated by [...] and the study results will be discussed. I placed NEW referral to resp therapy to help coordinate this. /janine/ ARIEL INFANTE D.O. PHYSICIAN Signed: 02/09/2024 15:21 Receipt Acknowledged By: 02/09/2024 15:42 /es/ YOGI DOMINGUEZ RN REGISTERED NURSE --- Original Document --- 02/09/24 PRIMARY CARE SECURE MESSAGING: ------Original Message ----- Sent: 02/09/2024 09:20 AM ET From: LAKESHA SQUIRES To: Alex INFANTE _ [facility] Subject: General:Sleep Medicine Access assistance Good Morning Dr. Infante, Not sure if you remember, but I have an implanted Inspire-Sleep Device, to replace the use of a CPAP. My apnea is severe, enough to warrant the implant and the process was initiated by a sleep medicine Dr. in [place], after several visits there. The [place] approved the implant, but that was early on in Covid times and space was always for Covid patients first at [place], where the surgery is done in this region. The surgeon suggested that I go through my health insurance and I followed that advice. Since the surgery, about 3 - 4 years ago, I have lost a substantial amount of weight and I am in dire need of adjustment of the device or the remote, or both. At least, I need a follow up with Sleep Medicine. The [facility] Dr. that I was going to has retired and I can't get into a new doctor there. I have been unsuccessful in getting a solid path to having the VA take over management of the device and would like your assistance in accomplishing this. My initial conversations with Sleep Medicine in [place], in the late winter/Spring were positive, but it all seems to have fallen by the wayside. Can you be of assistance? I am not using the device and sleep without any apnea support at all. Sincerely, Vijay Osborn ------Original Message ----- Sent: 02/09/2024 02:04 PM ET From: YOGI DOMINGUEZ To: LAKESHA SQUIRES Subject: General:Sleep Medicine Access assistance Good Afternoon Mr. Owens, I will let Dr. Infante know of your need and we will work on getting you to the correct provider. I'm confused as to why a new sleep medicine provider at [facility] cannot take over your care as they are the ones who implanted it. I will check in with Dr. Infante for recommendations. Respectfully, Yogi Dominguez RN /janine/ YOGI DOMINGUEZ RN REGISTERED NURSE Signed: 02/09/2024 14:05 02/09/2024 ADDENDUM STATUS: COMPLETED ALERT TO PCP for recommendation, as to where should seek care for implanted sleep apnea device, was performed at [facility], however, [facility] provider retired, he would like [place]. /janine/ YOGI DOMINGUEZ RN REGISTERED NURSE Signed: 02/09/2024 14:08 Receipt Acknowledged By: 02/09/2024 15:17 /janine/ ARIEL INFANTE D.O. PHYSICIAN ARIEL INFANTE [facility] [place] [facility] Feb 09, 2024 02:06 PM ADDENDUM: LOCAL TITLE: Addendum STANDARD TITLE: ADDENDUM DATE OF NOTE: FEB 09, 2024@14:06:48 ENTRY DATE: FEB 09, 2024@14:06:49 AUTHOR: YOGI DOMINGUEZ EXP COSIGNER: URGENCY: STATUS: COMPLETED ALERT TO PCP for recommendation, as to where should seek care for implanted sleep apnea device, was performed at [facility], however, [facility] provider retired, [place] would like [place]. /es/ YOGI DOMINGUEZ RN REGISTERED NURSE Signed: 02/09/2024 14:08 Receipt Acknowledged By: 02/09/2024 15:17 /janine/ ARIEL INFANTE D.O. PHYSICIAN --- Original Document --- 02/09/24 PRIMARY CARE SECURE MESSAGING: ------Original Message ----- Sent: 02/09/2024 09:20 AM ET From: LAKESHA SQUIRES To: Alex INFANTE _ [facility] Subject: General:Sleep Medicine Access assistance Good Morning Dr. Infante, Not sure if you remember, but I have an implanted Inspire-Sleep Device, to replace the use of a CPAP. My apnea is severe, enough to warrant the implant and the process was initiated by a sleep medicine DrAnderson in [place], after several visits there. The [place] approved the [place], but that was early on in Covid times and space was always for Covid patients first at [place], where the surgery is done in this region. The surgeon suggested that I go through my health insurance and I followed that advice. Since the surgery, about 3 - 4 years ago, I have lost a substantial amount of weight and I am in dire need of adjustment of the device or the remote, or both. At least, I need a follow up with Sleep Medicine. The [facility] that I was going to has retired and I can't get into a new doctor there. I have been unsuccessful in getting a solid path to having the VA take over management of the device and would like your assistance in accomplishing this. My initial conversations with Sleep Medicine in [place], in the late winter/Spring were positive, but [facility] Can you be of assistance? I am not using the device and sleep without any apnea support at all. Sincerely, Viajy Osborn ------Original Message ----- Sent: 02/09/2024 02:04 PM ET From: YOGI DOMINGUEZ To: LAKESHA SQUIRES Subject: General:Sleep Medicine Access assistance Good Afternoon Mr. Owens, I will let Dr. Infante know of your need and we will work on getting you to the correct provider. I'm confused as to why a new sleep medicine provider at [facility] cannot take over your care as they are the ones who implanted it. I will check in with Dr. Infante for recommendations. Respectfully, Yogi Dominguez RN /janine/ YOGI DOMINGUEZ RN REGISTERED NURSE Signed: 02/09/2024 14:05 02/09/2024 ADDENDUM STATUS: UNSIGNED You may not VIEW this UNSIGNED Addendum. YOGI DOMINGUEZ [facility] Feb 09, 2024 02:06 PM PRIMARY CARE SECURE MESSAGING: LOCAL TITLE: PRIMARY CARE SECURE MESSAGING STANDARD TITLE: PRIMARY CARE SECURE MESSAGING DATE OF NOTE: FEB 09, 2024@14:06 ENTRY DATE: FEB 09, 2024@14:06:33 AUTHOR: YOGI DOMINGUEZ EXP COSIGNER: URGENCY: STATUS: COMPLETED ------Original Message ----- Sent: 02/09/2024 02:06 PM ET From: YOGI DOMINGUEZ To: LAKESHA SQUIRES Subject: General:Sleep Medicine Access assistance Please accept my apologies, I should have addressed that to you Good Afternoon Mr. Squires, The answer remains the same, I will work on this with Dr. Infante Respectfully, Yogi Dominguez RN /janine/ YOGI DOMINGUEZ RN REGISTERED NURSE Signed: 02/09/2024 14:06 YOGI DOMINGUEZ [facility] [employer] [facility] Feb 09, 2024 02:05 PM PRIMARY CARE SECURE MESSAGING: LOCAL TITLE: PRIMARY CARE SECURE MESSAGING STANDARD TITLE: PRIMARY CARE SECURE MESSAGING DATE OF NOTE: FEB 09, 2024@14:05 ENTRY DATE: FEB 09, 2024@14:05:14 AUTHOR: YOGI DOMINGUEZ EXP COSIGNER: URGENCY: STATUS: COMPLETED PRIMARY CARE SECURE MESSAGING Has ADDENDA ------Original Message ----- Sent: 02/09/2024 09:20 AM ET From: LAKESHA SQUIRES To: Alex INFANTE _ [facility] Subject: General:Sleep Medicine Access assistance Good Morning Dr. Infante, Not sure if you remember, but I have an implanted Inspire-Sleep Device, to replace the use of a CPAP. My apnea is severe, enough to warrant the implant and the process was initiated by a sleep medicine DrAnderson in [place], after several visits there. The [place] approved the [place], but that was early on in Covid times and space was always for Covid patients first at [place], where the surgery is done in this region. The surgeon suggested that I go through my health insurance and I followed that advice. Since the surgery, about 3 - 4 years ago, I have lost a substantial amount of weight and I am in dire need of adjustment of the device or the remote, or both. At least, I need a follow up with Sleep Medicine. [facility] to has retired and I can't get into a new doctor there. I have been unsuccessful in getting a solid path to having the [facility] take over management of the device and would like your assistance in accomplishing this. My initial conversations with Sleep Medicine in [place], in the late winter/Spring were positive, but it all seems to have fallen by the wayside. Can you be of assistance? I am not using the device and sleep without any apnea support at all. Sincerely, Vijay Osborn ------Original Message ----- Sent: 02/09/2024 02:04 PM ET From: YOGI DOMINGUEZ To: LAKESHA SQUIRES Subject: General:Sleep Medicine Access assistance Good Afternoon Mr. Owens, I will let Dr. Infante know of your need and we will work on getting you to the correct provider. I'm confused as to why a new sleep medicine provider at [facility] cannot take over your care as they are the ones who implanted it. I will check in with Dr. Infante for recommendations. Respectfully, Yogi Dominguez RN /jeff DOMINGUEZ RN REGISTERED NURSE Signed: 02/09/2024 14:05 02/09/2024 ADDENDUM STATUS: COMPLETED ALERT TO PCP for recommendation, as to where should seek care for implanted sleep apnea device, was performed at [facility], however, [facility] provider retired, he would like [place]. /jeff DOMINGUEZ RN REGISTERED NURSE Signed: 02/09/2024 14:08 Receipt Acknowledged By: 02/09/2024 15:17 /jeff INFANET D.O. PHYSICIAN 02/09/2024 ADDENDUM STATUS: [facility] recommended f/u with local respiratory department which happened on 10/26/[address] [place] [address]- and note was: 1. Severe sleep apnea syndrome complicated by [...] and the study results will be discussed. I placed NEW referral to resp therapy to help coordinate this. /jeff INFANTE D.O. PHYSICIAN Signed: 02/09/2024 15:21 Receipt Acknowledged By: * AWAITING SIGNATURE * YOGI DOMINGUEZ KARIN E [facility]
--- OUTSIDE RECORDS SUMMARY | 2024-06-03 09:03 | XMS_ITS ---
Author Name [facility] [place] Address [address] [place] [address] Care Team Providers Care Pole Shaver Helper Name Role Phone ARIEL JIMENEZ Primary Care Provider Unavailabbe patel Insurance Providers: All historical and current [...] Parra's Name Patient's Relationship to Policy Parra [facility] Dec 19, 2015 [id number] TANA NGO PATIENT [facility] Dec 19, 2015 [id number] [employer]AKESHA [employer] PATIENT [facility] May 29, 2012 [id number] [employer] PATIENT Selected Encounter This section includes the information on record at [place] for the Encounter. Date/Time Encounter Type Encounter Description Reason Provider Source Feb 19, 2024 08:30 AM COMPRE OPH EXAM EST PT 1/> OPTOMETRY ICD-10-CM E11.9 Type 2 diabetes mellitus without complications MILLI PABON [facility] Encounter Template Text not used by [place] Assessments - Encounter Diagnoses This section includes the primary and secondary diagnoses documented for the Encounter. Date/Time Primary/Secondary Diagnosis Diagnosis Name Provider Source Feb 19, 2024 09:52 AM PRIMARY Type 2 diabetes mellitus without complications MILLI PABON [facility] Feb 19, 2024 09:52 AM SECONDARY Combined forms of age-related cataract, bilateral MILLI PABON [facility] Plan of Treatment: Future Appointments (+ 6 months) and Future Tests (+/- 45 days) The Plan of Treatment section includes future care activities for the patient from all [place] [facility] This section includes future appointments and future orders which are active, pending or scheduled. Future Appointments This section includes appointments that were scheduled to occur 6 months from the date of the Encounter, up to a maximum of 20 appointments. The data comes from all [place] treatment facilities. Appointment Date/Time Appointment Type Appointme nt Facility Name Feb 21, 2024 08:40 AM AMBULATORY - MEDICINE [place] [facility] Mar 01, 2024 10:30 AM AM[place]ULATORY - [place]IC[place] [facility] Mar 12, 2024 09:00 AM AMBULATORY - MEDICINE [place] [facility] Mar 14, 2024 02:00 PM AMBULATORY - MEDICINE [place] [facility] Mar 25, 2024 08:00 AM AMBULATORY - MEDICINE [place] [facility] Mar 27, 2024 11:20 AM AMBULATORY - MEDICINE [place] [facility] May 03, 2024 10:00 AM AMBULATORY - MEDICINE [facility] [place] [facility] May 10, 2024 08:30 AM AMBULATORY - PSYCHIATRY [facility] Jul 11, 2024 10:30 AM AMBULATORY - NONE [place] [facility] Aug 02, 2024 10:00 AM AMBULATORY - MEDICINE [place] [facility] Aug 09, 2024 09:00 AM AMBULATORY - PSYCHIATRY [facility] Active, Pending, and Scheduled Orders This section includes a listing of several types of active, pending, and scheduled orders, including clinic medications orders, diagnostic test orders, procedure orders and consult orders; where the start date of the order is 45 days before the date of the Encounter or 45 days after the date of theEncounter. The data comes from all [place] treatment facilities. Test Date/Time Test Type Test Details Facility Name Mar 15, 2024 01:18 PM Consult Order [facility] Cons Manager Asset's Choice [facility] Mar 25, 2024 12:57 PM Consult Order [facility] Cons Manager Asset's Choice [facility] Lab Results: +/- 30 days of the encounter This section includes the Chemistry and Hematology Lab Results on record with [place] for the patient. Radiology Reports and Pathology Reports are provided separately, in subsequent sections. Lab Results This section contains the Chemistry/Hematology Results that were resulted 30 days before or 30 daysafter the date of the Encounter. Date/Time Source Result Type Result - Unit Interpretation Reference Range Comment Mar 14, 2024 02:51 PM [facility] CBC AND DIFF (AUTO) Specimen Type: BLOOD No comment entered. Ordering Provider: ARIEL JIMENEZ Report Released Date/Time: Mar 14, 2024 02:13 PM Reporting Lab: [facility] [address] [facility] [address] Performing Lab: [facility] [address] [facility] [address] WBC 6.17 10*3/uL 4.50-11.00 RBC 5.01 10*6/uL [...] 10*3/uL 0.00-0.00 Mar 14, 2024 02:50 PM [facility] HEMOGLOBIN A1C PANEL Specimen Type: BLOOD [...] September 27, 2023 10:28 AM Reporting Lab: [address] [address] Performing Lab: [address] [address] HEMOGLOBIN A1C 5.7 H 4.0-5.6 Mar 12, 2024 09:50 AM [facility] PT & INR (PROTIME) Specimen Type: PLASMA No comment entered. Ordering Provider: ARIEL JIMENEZ Report Released Date/Time: Feb 23, 2024 11:30 AM Reporting Lab: [address] [address] Performing Lab: [address] [address] INR 0.9 PROTIME 10.7 s 10.0-13.1 Mar 12, 2024 09:50 AM [facility] LIPID PANEL, NON FASTING Specimen Type: SERUM No comment entered. Ordering Provider: ARIEL JIMENEZ Report Released Date/Time: Feb 23, 2024 09:53 AM Reporting Lab: [facility] [address] [address] Performing Lab: [facility] [address] [facility] [address] CHOLESTEROL 130 mg/dL TRIGLYCERIDE 89 mg/dL 0-150 LDL calculated 57 mg/dL 0-129 CHOL/HDL 2.4 HDL CHOLESTEROL 55 mg/dL 40-60 Mar 12, 2024 09:50 AM [facility] BASIC METABOLIC PANEL (non-fasting) Specimen Type: SERUM No comment entered. Ordering Provider: ARIEL JIMENEZ Report Released Date/Time: Feb 23, 2024 09:53 AM Reporting Lab: [address] [address] Performing Lab: [address] [address] UREA NITROGEN 26 mg/dL H 7-25 GLUCOSE 136 mg/dL H 65-100 SODIUM 141 mmol/L 135-145 POTASSIUM 4.7 mmol/L 3.5-5.0 CHLORIDE 104 mmol/L 100-110 CO2 27 meq/L 20-30 CREATININE, Serum 0.86 mg/dL 0.50-1.40 eGFR(CKD-EPI 2020) >90 mL/min >60 Mar 12, 2024 09:50 AM [facility] CBC Specimen Type: BLOOD No comment entered. Ordering Provider: ARIEL JIMENEZ Report Released Date/Time: Feb 23, 2024 11:30 AM Reporting Lab: [facility] [address] [facility] [address] Performing Lab: [address] [address] WBC 4.94 10*3/uL 4.50-11.00 RBC 4.72 10*6/uL 4.23-5.66 HGB 15.3 g/dL 12.8-17 HCT 43.3 39.2-50.4 MCV 91.7 fL 82-99 MCHC 35.3 g/dL H 30.8-35.1 PLT 175 10*3/uL 140-360 RDW-CV 12.2 12.0-16.0 MCH 32.4 pg 26.2-32.6 Social History: Smoking Status (Most current) and Tobacco Use (All prior to encounter date) This section includes the most current, and the historical, smoking and tobacco- related health factors from the [place] facility where the Encounter took place. Current Smoking Status This section includes the most current smoking, or tobacco-related health factor, from the [place] facility where the Encounter took place. Date/Time Current Smoking Status Comment Facil ity Jun 22, 2023 09:00 AM VA-TOBACCO USER SOME DAYS [place] [facility] Tobacco Use History This section includes a history of the smoking, or tobacco-related health factors, that were collected on or before the date of the Encounter. The data comes from the [place] facility where the Encounter took place. 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 [place] [facility] [facility] Jun 22, 2023 09:00 AM VA-TOBACCO USE MED NO [place] [facility] Jun 22, 2023 09:00 AM VA-TOBACCO USER SOME DAYS [place] [facility] [facility] Jan 13, 2022 02:00 PM VA-TOBACCO NEVER USED [place] [facility] Jul 06, 2009 03:46 PM QUIT TOBACCO USE > 7 YEARS AGO [place] [facility] [facility] Advance Directives: All historical and current Section Date Range: From patient's date of to the date document was created. This section includes ALL of a patient's completed or amended [place] Advance and Rescinded Directives. The entries below indicate that a directive exists for the patient, but an actual copy is not included with this document. The data comes from all [place] facilities. Date Advance Directives Provider Source Jun 29, 2023 ADVANCE DIRECTIVE CLEOJAMES Olivia [facility] Sep 19, 2017 ADVANCE DIRECTIVE RASDINA BC [facility] Encounter Notes: All associated encounter notes This section contains the clinical notes associated to the Encounter. Date/Time Encounter Note(s) Provider Source Feb 19, 2024 07:53 AM OPTOMETRY NOTE: LOCAL TITLE: OPTOMETRY NOTE(T) STANDARD TITLE: OPTOMETRY NOTE DATE OF NOTE: FEB 19, 2024@07:53 ENTRY DATE: FEB 19, 2024@07:53:38 AUTHOR: KAIDEN PABON EXP COSIGNER: URGENCY: STATUS: COMPLETED Active Problems: Active Problem Diabetes mellitus with neuropathy E 06/29/2023 FURMERCEDES,ARIEL Lumbar radiculopathy M54.16 09/16/2019 JACQUELINE ELIZABETH Obstructive sleep apnea syndrome G4 02/11/2019 KARLY LIGHT Adjustment disorder with anxious mo 08/05/2020 TIANNA NOBLE Essential hypertension I10. 05/14/2015 KARLY LIGHT Colonoscopy normal 799.9 09/24/2014 ROSALES,KHIEM Hyperlipidemia E78.2 06/02/2016 KARLY LIGHT Pain of right knee joint (SNOMED CT 09/27/2023 FURCOLO,ARIEL Diabetes mellitus type 2 without re 06/15/2015 KARLY LIGHT Asthma 493.90 07/06/2009 JUANA MATHEW Hearing loss 389.9 07/06/2009 JUANA MATHEW Allergic rhinitis (SNOMED CT 376440 05/14/2015 KARLY LIGHT Medications ([place]): Active Outpatient Medications (including Supplies): Active Outpatient Medications Status 1) ACCU-CHEK [...] ONE TABLET BY MOUTH ONCE ACTIVE DAILY FOR DIABETES 5) HYDROCHLOROTHIAZIDE 12.5MG CAP TAKE ONE CAPSULE BY ACTIVE MOUTH DAILY 6) LISINOPRIL 5MG TAB TAKE ONE TABLET BY MOUTH DAILY TO ACTIVE CONTROL BLOOD PRESSURE 7) METFORMIN HCL 500MG 24HR SA TAB TAKE ONE TABLET BY ACTIVE MOUTH TWICE DAILY FOR TYPE 2 DIABETES MELLITUS 8) SEMAGLUTIDE 1MG/0.75ML INJ PEN 3ML INJECT 1MG ACTIVE SUBCUTANEOUSLY ONCE A WEEK FOR DIABETES (REPLACES DULAGLUTIDE [TRULICITY]) 9) SILDENAFIL CITRATE 100MG TAB TAKE ONE TABLET BY MOUTH ACTIVE ONCE DAILY NEEDED TAKE 1 HOUR PRIOR TO SEXUAL ACTIVITY Active Non-VA Medications Status 1) Non-VA ALBUTEROL INHALER INHL,ORAL 2 PUFFS BY MOUTH ACTIVE EVERY 4 HOURS NEEDED 2) Non-VA ASPIRIN 81MG EC TAB 81MG BY MOUTH DAILY ACTIVE 3) Non-VA LORATADINE 10MG TAB 10MG BY MOUTH ONCE DAILY ACTIVE NEEDED 12 Total Medications Allergies: Patient has answered NKA S: 58-year-old male is in for annual follow-up without specific complaints and a history of type 2 diabetes and mild nuclear sclerotic cataracts OU. Otherwise he denies any eye injury or disease since his last exam. KAYLIN: 02/17/2023 (-) Pain: (-) LOPES: (-) Diplopia: (-) Flashes: (-) Floaters: (-) Amaurosis Fugax/Tia's: (-) Eye Injury: (-) Eye Surgery: (-) TBI O: Visual acuity with current correction was 20/20 both eyes. Pupils were equal and round and reactive to light with no afferent defect. Extraocular muscles were intact and facial confrontation laird were full. Lids and lashes were clear both eyes. Corneas and conjunctiva were clear both eyes. Anterior chambers were deep clear and quiet with open angles. Iris was flat both eyes without neovascularization. Grade 1+ nuclear sclerotic were seen OU. Current Rx with last BCVA: OD: +0.50 -1.00 x 175 20/20 OS: +0.50 -0.50 x 015 20/20 ADD: +2.00 20/20 Refraction: OD: + 1.00 - 1.25 x 170 20/20 OS: +0.50 -0.50 x 015 20/20 ADD: + 2.25 20/20 Intraocular pressures at 8:50 AM were 16 mmHg OU. Dilating Drops: 1GTT 1 % Tropicamide OU & 1GTT 2.5% Phenylephrine OU (Pt. ed. on side effects, dilation warning given and verbal consent obtained) Patient advised not to drive if they feel they have any symptoms which could affect their ability to drive safely. Patient advised not to engage in any activities which could put themselves or others at risk if they feel they have any symptoms which could affect their ability to perform those activities safely. Vitreous was clear OU. Approximately 40% horizontal and vertical cupping was seen OU with healthy rims and margins. Normal pigmentary architecture of the macula was seen with a two third artery to vein ratio. No lipid or edema was seen OU. Retinal peripheries were intact in all quadrants OU. No diabetic retinopathy was seen OU. A: Diabetes per history without ocular manifestations. Mild not visually significant nuclear sclerotic cataracts OU. Refraction disorder P: Patient will return to look at new frames for eyeglass replacement. The patient will return in 12 months or sooner if any problems arise. Education: After discussion and answering all 's questions, [place] demonstrated and verbalized understanding of diagnosis and treatment. Yes [x] No [ ] Patient Education: Diabetes: Patient was educated regarding diabetes and related ocular complications including retinopathy and cataract formation as well as other related systemic complications. The importance of good blood sugar control, blood sugar testing as recommended by their PCP and the importance of timely follow up were all emphasized. 6 Medication Reconciliation: Outpatient: Has the patient been [...] with a VA or non-VA provider. /janine/ KAIDEN PABON OD STAFF FIELD PLACEMENT DIRECTOR Signed: 02/19/2024 09:52 KAIDEN PABON [place] [facility]
--- OUTSIDE RECORDS SUMMARY | 2024-06-03 09:03 | XMS_ITS ---
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 Date/Time Encounter Type Encounter Description Reason Provider Source Feb 08, 2024 09:04 AM Outpatient Encounter PRIMARY CARE/MEDICINE DEBBIE DOMINGUEZ Encounter Template Text not used by [place] Plan of Treatment: Future Appointments (+ 6 months) and Future Tests (+/- 45 days) The Plan of Treatment section includes future care activities for the patient [facility] [place] [facility] This section includes future appointments and future orders which are active, pending or scheduled. Future Appointments This section includes appointments that were scheduled to occur 6 months from the date of the Encounter, up to a maximum of 20 appointments. The data comes from all [facility]. Appointment Date/Time Appointment Type Appointme nt Facility Name Feb 09, 2024 08:30 AM AMBULATORY - PSYCHIATRY [facility] Feb 12, 2024 01:30 PM AMBULATORY - NONE [place] [facility] Feb 19, 2024 08:30 AM AMBULATORY - MEDICINE [place] [facility] Feb 21, 2024 08:40 AM AMBULATORY - MEDICINE [place] [facility] Mar 01, 2024 10:30 AM AM[place]ORY [place]IC[place] [facility] Mar 12, 2024 09:00 AM AMBULATORY - MEDICINE [place] [facility] Mar 14, 2024 02:00 PM AMBULATORY - MEDICINE [place] [facility] Mar 25, 2024 08:00 AM AMBULATORY - MEDICINE [place] [facility] Mar 27, 2024 11:20 AM AMBULATORY - MEDICINE [place] [facility] May 03, 2024 10:00 AM AMBULATORY - [place]IC[place] [facility] May 10, 2024 08:30 AM AMBULATORY - PSYCHIATRY [facility] Jul 11, 2024 10:30 AM AMBULATORY - NONE [place] [facility] Aug 02, 2024 10:00 AM AMBULATORY - MEDICINE [place] [facility] Active, Pending, and Scheduled Orders This section includes a listing of several types of active, pending, and scheduled orders, including clinic medications orders, diagnostic test orders, procedure orders and consult orders; where the start date of the order is 45 days before the date of the Encounter or 45 days after the date of theEncounter. The data comes from all [facility]. Test Date/Time Test Type Test Details Facility Name Mar 15, 2024 01:18 PM Consult Order [facility]-COLONOSCOPY SURVEILLANCE Cons Overhead Cleaner Maintainer's Choice [facility] Social History: Smoking Status (Most [...] 2023 09:00 AM VA-TOBACCO USER SOME DAYS [facility] Tobacco Use History This section includes a history of the smoking, or tobacco-related health factors, that were collected on or before the date of the Encounter. The data comes from the [place] facility where the Encounter took place. 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 [facility] Jun 22, 2023 09:00 AM VA-TOBACCO USE MED NO [facility] Jun 22, 2023 09:00 AM VA-TOBACCO USER SOME DAYS [facility] Jan 13, 2022 02:00 PM VA-TOBACCO NEVER USED [facility] Jul 06, 2009 03:46 PM QUIT TOBACCO USE > 7 YEARS AGO [facility] Advance Directives: All historical and [...] Jun 29, 2023 ADVANCE DIRECTIVE JAMES GALLO [facility] Sep 19, 2017 ADVANCE DIRECTIVE DINA MCGINNIS [facility] Encounter Notes: All associated encounter notes This section contains the clinical notes associated to the Encounter. Date/Time Encounter Note(s) Provider Source Feb 08, 2024 09:04 AM PRIMARY CARE SECCALVIN E MESSAGING: LOCAL TITLE: PRIMARY CARE SECURE MESSAGING STANDARD TITLE: PRIMARY CARE SECURE MESSAGING DATE OF NOTE: FEB 08, 2024@09:04 ENTRY DATE: FEB 08, 2024@09:04:14 AUTHOR: DEBBIE DOMINGUEZ EXP COSIGNER: URGENCY: STATUS: COMPLETED ------Original Message -------- Sent: 02/08/2024 07:02 AM ET From: LAKESHA SQUIRES To: Aelx INFANTE _ [facility]IMARY [facility]ARE[facility] Subject: Appointment:DOT physical Good Morning Dr Infante, Are you, or is the [facility] able to do DOT physicals? Thank you, Vijay ------Original Message -------- Sent: 02/08/2024 09:04 AM ET From: DEBBIE DOMINGUEZ To: LAKESHA SQUIRES Subject: Appointment:DOT physical Good Morning Mr. Squires, DOT physical require an eye exam, testing for color blindness, measurement of how much you can lift, urine test and multiple other items. They are typically set up by the agency that is going to be employing you. You should check in with the potential employer about how to get your DOT physical completed. I know they are often don at places such as [facility]. I do see that you have a routine exam with Dr. Infante on 03/14/24 @ 14:00, this is a follow up from your september appointment with Dr. Infante. Respectfully, Debbie Dominguez RN /janine/ DEBBIE DOMINGUEZ RN REGISTERED NURSE Signed: 02/08/2024 09:04 DEBBIE DOMINGUEZ [place] [facility] [facility]
--- OUTSIDE RECORDS SUMMARY | 2024-06-03 09:03 | XMS_ITS ---
Author Name [facility] [place] Address [address] [place] [address] Care Team Providers Care Body Liner Name Role Phone ARIEL JIMENEZ Primary Care [...] Parra's Name Patient's Relationship to Policy Parra [facility] Dec 19, 2015 [id number] [phone] TANA NGO PATIENT [facility] Dec 19, 2015 [id number] LAKESHA NGO PATIENT [facility] May 29, 2012 [phone] TANA [employer] PATIENT Selected Encounter This section includes the information on record at [place] for the Encounter. Date/Time Encounter Type Encounter Description Reason Pro vider Source Feb 01, 2024 08:35 AM Outpatient Encounter ADMIN PAT ACTIVTIES (MASNONCT) IHE Encounter Template Text not used by [place] Plan of Treatment: Future Appointments (+ 6 months) and Future Tests (+/- 45 days) The Plan of Treatment section includes future care activities for the patient from all [place] [facility]. This section includes future appointments and future orders which are active, pending or scheduled. Future Appointments This section includes appointments that were scheduled to occur 6 months from the date of the Encounter, up to a maximum of 20 appointments. The data comes from all [facility]. Appointment Date/Time Appointment Type Appointme nt Facility Name Feb 09, 2024 08:30 AM AMBULATORY - PSYCHIATRY [facility] Feb 12, 2024 01:30 PM AMBULATORY - NONE [place] [facility] Feb 19, 2024 08:30 AM AMBULATORY - MEDICINE [place] C [place] [facility] Feb 21, 2024 08:40 AM AMBULATORY - MEDICINE [facility] [place] [facility] Mar 01, 2024 10:30 AM [facility] Mar 12, 2024 09:00 AM AMBULATORY - MEDICINE [place] [facility] Mar 14, 2024 02:00 PM AMBULATORY - MEDICINE [facility] N[facility] [place] [facility] Mar 25, 2024 08:00 AM AMBULATORY - MEDICINE [facility] N[facility] [place] [facility] Mar 27, 2024 11:20 AM AMBULATORY - MEDICINE [facility] N[facility] [place] [facility] May 03, 2024 10:00 AM AMBULATORY - MEDICINE [facility] May 10, 2024 08:30 AM AMBULATORY - PSYCHIATRY [facility] Jul 11, 2024 10:30 AM [facility] Active, Pending, and Scheduled Orders This section includes a listing of several types of active, pending, and scheduled orders, including clinic medications orders, diagnostic test orders, procedure orders and consult orders; where the start date of the order is 45 days before the date of the Encounter or 45 days after the date of theEncounter. The data comes from all [facility]. Test Date/Time Test Type Test Details Facility Name Mar 15, 2024 01:18 PM Consult Order COMMUNITY CARE-COLONOSCOPY SURVEILLANCE Cons Marine Meteorologist's Choice [facility] Social History: Smoking Status (Most current) and Tobacco Use (All prior to encounter date) This section includes the most current, and the historical, smoking and tobacco- related health factors from the [place] facility where the Encounter took place. Current Smoking Status This section includes the most current smoking, or tobacco-related health factor, from the [place] facility where the Encounter took place. Date/Time Current Smoking Status Comment Facil ity Jun 22, 2023 09:00 AM VA-TOBACCO USER SOME DAYS [facility] Tobacco Use History This section includes a history of the smoking, or tobacco-related health factors, that were collected on or before the date of the Encounter. The data comes from the [place] facility where the Encounter took place. Date/Time Smoking Status/Tobacco Use Comment F acility Jun 22, 2023 09:00 AM VA-TOBACCO USE 30 YEARS OR MORE [facility] Jun 22, 2023 09:00 AM VA-TOBACCO USE ADVICE [facility] Jun 22, 2023 09:00 AM VA-TOBACCO USE INTERLINE CLERK NO [facility] Jun 22, 2023 09:00 AM VA-TOBACCO USE MED NO [facility] Jun 22, 2023 09:00 AM VA-TOBACCO USER SOME DAYS [facility] Jan 13, 2022 02:00 PM VA-TOBACCO NEVER USED [facility] Jul 06, 2009 03:46 PM QUIT TOBACCO USE > 7 YEARS AGO [facility] Advance Directives: All historical and current Section Date Range: From patient's date of to the date document was created. This section includes ALL of a patient's completed or amended [place] Advance and Rescinded Directives. The entries below indicate that a directive exists for the patient, but an actual copy is not included with this document. The data comes from all [place] facilities. Date Advance Directives Provider Source Jun 29, 2023 ADVANCE DIRECTIVE JAMES GALLO [facility] Sep 19, 2017 ADVANCE DIRECTIVE DINA MCGINNIS [facility] Encounter Notes: All associated encounter notes This section contains the clinical notes associated to the Encounter. Date/Time Encounter Note(s) Provider Source Feb 01, 2024 08:35 AM ADMINISTRATIVE NOTE: LOCAL TITLE: CCC: SCHEDULING ADMINISTRATION STANDARD TITLE: ADMINISTRATIVE NOTE DATE OF NOTE: FEB 01, 2024@08:35:18 ENTRY DATE: FEB 01, 2024@08:35:18 AUTHOR: SAHARA YAÑEZ COSIGNER: URGENCY: STATUS: COMPLETED CCC: SCHEDULING ADMINISTRATION Has ADDENDA Patient Demographics Patient Name: LAKESHA SQUIRES Patient Primary Phone: [phone] Patient Primary [address]: [address] [place] [id number] Patient : 1965 Patient Age: 58 Call Back Number: [phone] Caller/Recipient Relation to Patient: Other If Other Describe Relation to Patient: [facility] Caller Name: Ruma Scheduling Cannot Complete Scheduling Action Reason: Restricted / Unavailable Clinic Requested Service(s): Primary Care Patient Requests Appt on or around: 2024-02-05 00:00:00 Patient Expects Callback: Yes Scheduling Note Reason: Cannot Complete Appointment Request Scheduling Note Comments: Ruma from [facility] is requesting for a call back to schedule a pre-op exam, EKG and labs for the patient to be seen at their office. Please advise/assist. Open Request: None of the above IMPORTANT: This note was created by [facility] Clinical Contact [facility] staff. Please do not alert the staff member by adding them as a signer for future communications. Alerts are not monitored by this user. /janine/ SAHARA YAÑEZ AMSA Signed: 02/01/2024 08:35 Receipt Acknowledged By: 02/01/2024 14:29 /janine/ JAXSON HARDEN LPN License Practical Nurse 02/01/2024 09:57 /janine/ YOGI GOODWIN RN REGISTERED NURSE 02/01/2024 ADDENDUM STATUS: COMPLETED ALERT TO AMSA to please schedule for pre-op clearance exam, exam needs to be within 30 days of surgery. /jeff GOODWIN RN REGISTERED NURSE Signed: 02/01/2024 09:58 SAHARA YAÑEZ CNTRIan W[facility]N [facility]
--- OUTSIDE RECORDS SUMMARY | 2024-06-03 09:03 | XMS_ITS ---
Author Name [facility] [place] Address [address] [place] [address] Care Team Providers Care Material Handling Equipment Stevedore Name Role Phone ARIEL JIMENEZ Primary Care [...] Parra's Name Patient's Relationship to Policy Parra [facility] Dec 19, 2015 [id number] TANA NGO PATIENT [facility] Dec 19, 2015 [id number] [phone] LAKESHA NGO PATIENT [facility] May 29, 2012 [id number] [phone] [employer]NA [employer] PATIENT Selected Encounter This section includes the information on record at [place] for the Encounter. Date/Time Encounter Type Encounter Description Reason Pro vider Source Feb 14, 2024 12:00 AM Outpatient Encounter EVENT (HISTORICAL) IHE Encounter Template Text not used by [place] Plan of Treatment: Future Appointments (+ 6 months) and Future Tests (+/- 45 days) The Plan of Treatment section includes future care activities for the patient from all [place] [facility]. This section includes future appointments and future orders which are active, pending or scheduled. Future Appointments This section includes appointments that were scheduled to occur 6 months from the date of the Encounter, up to a maximum of 20 appointments. The data comes from all [facility]. Appointment Date/Time Appointment Type Appointme nt Facility Name Feb 19, 2024 08:30 AM AMBULATORY - MEDICINE [place] [facility] Feb 21, 2024 08:40 AM AMBULATORY - MEDICINE [place] [facility] Mar 01, 2024 10:30 AM AMBULATORY - [place]IC[place] [facility] Mar 12, 2024 09:00 AM AMBULATORY - MEDICINE [place] [facility] Mar 14, 2024 02:00 PM AMBULATORY - MEDICINE [place] [facility] Mar 25, 2024 08:00 AM AMBULATORY - MEDICINE [facility] [place] [facility] Mar 27, 2024 11:20 AM AMBULATORY - MEDIC[facility] [place] [facility] May 03, 2024 10:00 AM [facility]UL[facility] May 10, 2024 08:30 AM AMBULATORY - PSYCHIATRY [facility] Jul 11, 2024 10:30 AM AMBULATORY - NONE [place] [facility] Aug 02, 2024 10:00 AM AMBULATORY - MEDICINE [facility] [place] Aug 09, 2024 09:00 AM AMBULATORY - PSYCHIATRY [facility] Active, Pending, and Scheduled Orders This section includes a listing of several types of active, pending, and scheduled orders, including clinic medications orders, diagnostic test orders, procedure orders and consult orders; where the start date of the order is 45 days before the date of the Encounter or 45 days after the date of theEncounter. The data comes from all [facility]. Test Date/Time Test Type Test Details Facility Name Mar 15, 2024 01:18 PM Consult Order COMMUNITY [facility]-COLONOSCOPY SURVEILLANCE Cons Heavy Truck Mechanic's [facility] CNTR [place] [facility] Mar 25, 2024 12:57 PM Consult Order COMMUNITY CARE-GEC [facility] Cons Heavy Truck Mechanic's Choice [facility] Lab Results: +/- 30 days of the encounter This section includes the Chemistry and Hematology Lab Results on record with [place] for the patient. Radiology Reports and Pathology Reports are provided separately, in subsequent sections. Lab Results This section contains the Chemistry/Hematology Results that were resulted 30 days before or 30 daysafter the date of the Encounter. Date/Time Source Result Type Result - Unit Interpretation Reference Range Comment Mar 14, 2024 02:51 PM [facility] CBC AND DIFF (AUTO) Specimen Type: BLOOD No comment entered. Ordering Provider: ARIEL JIMENEZ Report Released Date/Time: Mar 14, 2024 02:13 PM Reporting Lab: [facility] [address] [address] Performing Lab: [facility] [address] [address] WBC 6.17 10*3/uL 4.50-11.00 RBC 5.01 10*6/uL [...] 10*3/uL 0.00-0.00 Mar 14, 2024 02:50 PM [facility] HEMOGLOBIN A1C PANEL Specimen Type: BLOOD [...] September 27, 2023 10:28 AM Reporting Lab: [address] [address] Performing Lab: [address] [address] HEMOGLOBIN A1C 5.7 H 4.0-5.6 Mar 12, 2024 09:50 AM [facility] PT & INR (PROTIME) Specimen Type: PLASMA No comment entered. Ordering Provider: ARIEL JIMENEZ Report Released Date/Time: Feb 23, 2024 11:30 AM Reporting Lab: [facility] [address] [address] Performing Lab: [address] [address] INR 0.9 PROTIME 10.7 s 10.0-13.1 Mar 12, 2024 09:50 AM [facility] LIPID PANEL, NON FASTING Specimen Type: SERUM No comment entered. Ordering Provider: ARIEL JIMENEZ Report Released Date/Time: Feb 23, 2024 09:53 AM Reporting Lab: [address] [address] Performing Lab: [address] [address] CHOLESTEROL 130 mg/dL TRIGLYCERIDE 89 mg/dL 0-150 LDL calculated 57 mg/dL 0-129 CHOL/HDL 2.4 HDL CHOLESTEROL 55 mg/dL 40-60 Mar 12, 2024 09:50 AM [facility] BASIC METABOLIC PANEL (non-fasting) Specimen Type: SERUM No comment entered. Ordering Provider: ARIEL JIMENEZ Report Released Date/Time: Feb 23, 2024 09:53 AM Reporting Lab: [facility] [address] [address] Performing Lab: [facility] [address] [address] UREA NITROGEN 26 mg/dL H 7-25 GLUCOSE 136 mg/dL H 65-100 SODIUM 141 mmol/L 135-145 POTASSIUM 4.7 mmol/L 3.5-5.0 CHLORIDE 104 mmol/L 100-110 CO2 27 meq/L 20-30 CREATININE, Serum 0.86 mg/dL 0.50-1.40 eGFR(CKD-EPI 2020) >90 mL/min >60 Mar 12, 2024 09:50 AM [facility] CBC Specimen Type: BLOOD No comment entered. Ordering Provider: ARIEL JIMENEZ Report Released Date/Time: Feb 23, 2024 11:30 AM Reporting Lab: [facility] [address] [address] [address] Performing Lab: [address] [address] WBC 4.94 10*3/uL 4.50-11.00 RBC 4.72 10*6/uL [...] and tobacco- related health factors from the [place] facility where the Encounter took place. Current Smoking Status This section includes the most current smoking, or tobacco-related health factor, from the [place] facility where the Encounter took place. Date/Time Current Smoking Status Comment [place] ity Jun 22, 2023 09:00 AM [facility] Tobacco Use History This section includes a history of the smoking, or tobacco-related health factors, that were collected on or before the date of the Encounter. The data comes from the [place] facility where the Encounter took place. Date/Time Smoking Status/Tobacco Use Comment F acility Jun 22, 2023 09:00 AM VA-TOBACCO USE 30 YEARS OR MORE [facility] Jun 22, 2023 09:00 AM VA-TOBACCO USE ADVICE [facility] Jun 22, 2023 09:00 AM VA-TOBACCO USE NEON SIGN MECHANIC NO [facility] Jun 22, 2023 09:00 AM VA-TOBACCO USE MED [facility] Jun 22, 2023 09:00 AM VA-TOBACCO USER SOME DAYS [facility] Jan 13, 2022 02:00 PM VA-TOBACCO NEVER [facility]ED [facility] Jul 06, 2009 03:46 PM QUIT TOBACCO USE > 7 YEARS AGO [facility] Advance Directives: All historical and current Section Date Range: From patient's date of to the date document was created. This section includes ALL of a patient's completed or amended [place] Advance and Rescinded Directives. The entries below indicate that a directive exists for the patient, but an actual copy is not included with this document. The data comes from all [place] facilities. Date Advance Directives Provider Source Jun 29, 2023 ADVANCE DIRECTIVE JAMES GALLO [facility] Sep 19, 2017 ADVANCE DIRECTIVE DINA MCGINNIS [facility] WSN [facility] Encounter Notes: All associated encounter notes This section contains the clinical notes associated to the Encounter. Date/Time Encounter Note(s) Provider Source Feb 14, 2024 12:00 AM NONVA CONSULT: LOCAL TITLE: COMMUNITY CARE-CONSULT RESULT NOTE STANDARD TITLE: NONVA CONSULT DATE OF NOTE: FEB 14, 2024 ENTRY DATE: FEB 18, 2024@07:31:36 AUTHOR: FELTON MCQUEEN EXP COSIGNER: URGENCY: STATUS: COMPLETED VistA Imaging - Scanned Document SCANNED DOCUMENT SIGNATURE NOT REQUIRED Electronically Filed: 02/18/2024 by: FELTON HAGAN [facility]L [facility]
--- OUTSIDE RECORDS SUMMARY | 2024-06-03 09:03 | XMS_ITS ---
Author Name [facility] [place] Organization [facility] [place] Address [address] [place] [address] Care Team Providers Care Volunteer Recruiter Name Role Phone ARIEL JIMENEZ Primary Care [...] Parra's Name Patient's Relationship to Policy Parra [facility] Dec 19, 2015 [id number] [phone] TANA [employer] [facility] Dec 19, 2015 [id number] LAKESHA NGO PATIENT [facility] May 29, 2012 [id number] [phone] [id number] [employer] PATIENT Selected Encounter This section includes the information on record at [place] for the Encounter. Date/Time Encounter Type Encounter Description Reason Pro vider Source Feb 06, 2024 01:24 PM Outpatient Encounter ADMIN PAT ACTIVTIES (MASNONCT) IHE Encounter Template Text not used by [place] Plan of Treatment: Future Appointments (+ 6 months) and Future Tests (+/- 45 days) The Plan of Treatment section includes future care activities for the patient from all [place] [facility] [place] This section includes future appointments and future orders which are active, pending or scheduled. Future Appointments This section includes appointments that were scheduled to occur 6 months from the date of the Encounter, up to a maximum of 20 appointments. The data comes from all [facility]. Appointment Date/Time Appointment Type Appointme nt Facility Name Feb 09, 2024 08:30 AM AMBULATORY - PSYCHIATRY [facility] Feb 12, 2024 01:30 PM AMBULATORY - NONE [place] [facility] [place] [facility] Feb 19, 2024 08:30 AM AMBULATORY - MEDICINE [place] [facility] [place] [facility] Feb 21, 2024 08:40 AM AMBULATORY - MEDICINE [place] [facility] [place] [facility] Mar 01, 2024 10:30 AM AMBULATORY - [place]ICINE [place] [facility] Mar 12, 2024 09:00 AM AMBULATORY - MEDICINE [place] [facility] [place] [facility] Mar 14, 2024 02:00 PM AMBULATORY - MEDICINE [place] [facility] [place] [facility] Mar 25, 2024 08:00 AM AMBULATORY - MEDICINE [place] [facility] [place] [facility] Mar 27, 2024 11:20 AM AMBULATORY - MEDICINE [place] [facility] [place] [facility] May 03, 2024 10:00 AM AMBULATORY - MEDICINE [place] [facility] May 10, 2024 08:30 AM AMBULATORY - PSYCHIATRY [facility] Jul 11, 2024 10:30 AM AMBULATORY - NONE [place] [facility] [place] [facility] Aug 02, 2024 10:00 AM AMBULATORY - MEDICINE [place] [facility] Active, Pending, and Scheduled Orders [...] PM Consult Order COMMUNITY CARE-COLONOSCOPY SURVEILLANCE Cons Weights And Measures Inspector's [facility] [place] [facility] Social History: Smoking Status (Most current) and Tobacco Use (All prior to encounter date) This section includes the most current, and the historical, smoking and tobacco- related health factors from the [place] facility where the Encounter took place. Current Smoking Status This section includes the most current smoking, or tobacco-related health factor, from the [place] facility where the Encounter took place. Date/Time Current Smoking Status Comment Facil ity Jun 22, 2023 09:00 AM VA-TOBACCO USE 30 YEARS OR MORE [facility] Tobacco Use History This section includes a history of the smoking, or tobacco-related health factors, that were collected on or before the date of the Encounter. The data comes from the [place] facility where the Encounter took place. Date/Time Smoking Status/Tobacco Use Comment F acility Jun 22, 2023 09:00 AM VA-TOBACCO USE 30 YEARS OR [facility] Jun 22, 2023 09:00 AM VA-TOBACCO USE ADVICE [facility] Jun 22, 2023 09:00 AM VA-TOBACCO USE OPERATIONS RESEARCH DIRECTOR NO [facility] Jun 22, 2023 09:00 AM VA-TOBACCO USE MED NO [facility] Jun 22, 2023 09:00 AM VA-TOBACCO USER SOME DAYS [facility] [place] [facility] Jan 13, 2022 02:00 PM VA-TOBACCO NEVER USED [facility] Jul 06, 2009 03:46 PM QUIT TOBACCO USE > 7 YEARS AGO [facility] Advance Directives: All historical and current Section Date Range: From patient's date of to the date document was created. This section includes ALL of a patient's completed or amended [place] Advance and Rescinded Directives. The entries below indicate that a directive exists for the patient, but an actual copy is not included with this document. The data comes from all [place] facilities. Date Advance Directives Provider Source Jun 29, 2023 ADVANCE DIRECTIVE JAMSE GALLO [facility] [place] Sep 19, 2017 ADVANCE DIRECTIVE DINA MCGINNIS [facility] Encounter Notes: All associated encounter notes This section contains the clinical notes associated to the Encounter. Date/Time Encounter Note(s) Provider Source Feb 06, 2024 01:24 PM ADMINISTRATIVE NOTE: LOCAL TITLE: CCC: SCHEDULING ADMINISTRATION STANDARD TITLE: ADMINISTRATIVE NOTE DATE OF NOTE: FEB 06, 2024@13:24:35 ENTRY DATE: FEB 06, 2024@13:24:35 AUTHOR: ASHVIN LIGHT EXP COSIGNER: URGENCY: STATUS: COMPLETED CCC: SCHEDULING ADMINISTRATION Has ADDENDA Patient Demographics Patient Name: LAKESHA SQUIRES Patient Primary Phone: [phone] Patient Primary Address: [address] [place] [address] Patient : 1965 Patient Age: 58 Caller/Recipient Relation to Patient: Other If Other Describe Relation to Patient: [facility] Caller Name: Lynne Administrative Administrative Note Reason: [facility] [place] Act Administrative Note Comments: Lynne from [facility] calling requesting a new referral. Lynne states the current referral expires on 02/23 and is requesting if the new referral can have the start date of 03/12. Lynne's contact number is [phone] and FX: [phone]. Please advise. IMPORTANT: This note was created by [facility] Clinical Contact Center staff. Please do not alert the staff member by adding them as a signer for future communications. Alerts are not monitored by this user. /jeff LIGHT V1 [facility] Signed: 02/06/2024 13:24 Receipt Acknowledged By: 02/07/2024 08:59 /janine/ Sarah Chilel RN, BSN Primary Care Nurse Gas Roller Operator for JAXSON FINA 02/06/2024 13:35 /janine/ YOGI GOODWIN, RN REGISTERED NURSE 02/06/2024 ADDENDUM STATUS: COMPLETED consult entered as requested, held for signature /jeff GOODWIN, RN REGISTERED NURSE Signed: 02/06/2024 13:35 ASHVIN LIGHT [facility]
--- OUTSIDE RECORDS SUMMARY | 2024-06-03 09:04 | XMS_ITS | Encounter Summary ---
Author Name [facility] of [facility] [place] Organization [facility] [place] [facility] [place] Address [address] [place] [address] Care Team Providers Care Survey Research Professor Name Role Phone ARIEL INFANTE Primary Care [...] Parra [facility] Dec 19, 2015 [id number] [phone] TANA NGO PATIENT [facility] Dec 19, 2015 [id number] LAKESHA NGO PATIENT [facility] May 29, 2012 [id number] [employer] PATIENT Selected Encounter This section includes the information on record at [place] for the Encounter. Date/Time Encounter Type Encounter Description Reason Provider Source Mar 21, 2024 07:54 AM Outpatient Encounter PRIMARY CARE/MEDICINE NELLY HARDEN Encounter Template Text not used by [place] Plan of Treatment: Future Appointments (+ 6 months) and Future Tests (+/- 45 days) The Plan of Treatment section includes future care activities for the patient from all [place] [facility] This section includes future appointments and future orders which are active, pending or scheduled. Future Appointments This section includes appointments that were scheduled to occur 6 months from the date of the Encounter, up to a maximum of 20 appointments. The data comes from all [place] treatment facilities. Appointment Date/Time Appointment Type Appointme nt Facility Name Mar 25, 2024 08:00 AM AMBULATORY - MEDICINE [place] [facility] [place] [facility] Mar 27, 2024 11:20 AM AMBULATORY - MEDICINE [place] [facility] [place] [facility] May 03, 2024 10:00 AM [facility] May 10, 2024 08:30 AM AMBULATORY - PSYCHIATRY [facility] Jul 11, 2024 10:30 AM [facility] - [facility] [place] [facility] Aug 02, 2024 10:00 AM AMBULATORY - MEDICINE [facility] Aug 09, 2024 09:00 AM AMBULATORY - PSYCHIATRY [facility] Active, Pending, and Scheduled Orders This section includes a listing of several types of active, pending, and scheduled orders, including clinic medications orders, diagnostic test orders, procedure orders and consult orders; where the start date of the order is 45 days before the date of the Encounter or 45 days after the date of theEncounter. The data comes from all [facility]. Test Date/Time Test Type Test Details Facility Name Mar 15, 2024 01:18 PM Consult Order COMMUNITY CARE-COLONOSCOPY SURVEILLANCE Cons Attorney At Law's Choice [place] [facility] [place] [facility] Mar 25, 2024 12:57 PM Consult Order COMMUNITY CARE-GEC [facility] C[facility] Cons Attorney At Law's Choice [facility] Lab Results: +/- 30 days of the encounter This section includes the Chemistry and Hematology Lab Results on record with [place] for the patient. Radiology Reports and Pathology Reports are provided separately, in subsequent sections. Lab Results This section contains the Chemistry/Hematology Results that were resulted 30 days before or 30 daysafter the date of the Encounter. Date/Time Source Result Type Result - Unit Interpretation Reference Range Comment Mar 14, 2024 02:51 PM [facility] CBC AND DIFF (AUTO) Specimen Type: BLOOD No comment entered. Ordering Provider: ARIEL INFANTE Report Released Date/Time: Mar 14, 2024 02:13 PM Reporting Lab: [facility] [address] [facility] [address] Performing Lab: [facility] [address] [facility] [address] WBC 6.17 10*3/uL 4.50-11.00 RBC 5.01 10*6/uL [...] 10*3/uL 0.00-0.00 Mar 14, 2024 02:50 PM [facility] HEMOGLOBIN A1C PANEL Specimen Type: BLOOD Comment: Values obtained from A1C measurements can vary. For atypical A1C assays, a reported value of 7.0 could actually be between 6.72 and 7.28 if measured by a reference method. A reported value of 9.0 could actually be between 8.73 and 9.27. Ref: http://www.ngs p.org/CAPdata. asp Ordering Provider: ARIEL INFANTE Report Released Date/Time: September 27, 2023 10:28 AM Reporting Lab: [facility] [address] [facility] [address] Performing Lab: [facility] [address] [facility] [address] HEMOGLOBIN A1C 5.7 H 4.0-5.6 Mar 12, 2024 09:50 AM [facility] LIPID PANEL, NON FASTING Specimen Type: SERUM No comment entered. Ordering Provider: ARIEL INFANTE Report Released Date/Time: Feb 23, 2024 09:53 AM Reporting Lab: [facility] [address] [facility] [address] Performing Lab: [facility] [address] [facility] [address] CHOLESTEROL 130 mg/dL TRIGLYCERIDE 89 mg/dL 0-150 LDL calculated 57 mg/dL 0-129 CHOL/HDL 2.4 HDL CHOLESTEROL 55 mg/dL 40-60 Mar 12, 2024 09:50 AM [facility] BASIC METABOLIC PANEL (non-fasting) Specimen Type: SERUM No comment entered. Ordering Provider: ARIEL INFANTE Report Released Date/Time: Feb 23, 2024 09:53 AM Reporting Lab: [facility] [address] [facility] [address] Performing Lab: [facility] [address] [facility] [address] UREA NITROGEN 26 mg/dL H 7-25 GLUCOSE 136 mg/dL H 65-100 SODIUM 141 mmol/L 135-145 POTASSIUM 4.7 mmol/L 3.5-5.0 CHLORIDE 104 mmol/L 100-110 CO2 27 meq/L 20-30 CREATININE, Serum 0.86 mg/dL 0.50-1.40 eGFR(CKD-EPI 2020) >90 mL/min >60 Mar 12, 2024 09:50 AM [facility] PT & INR (PROTIME) Specimen Type: PLASMA No comment entered. Ordering Provider: ARIEL INFANTE Report Released Date/Time: Feb 23, 2024 11:30 AM Reporting Lab: [facility] [address] [facility] [address] Performing Lab: [address] [address] INR 0.9 PROTIME 10.7 s 10.0-13.1 Mar 12, 2024 09:50 AM [facility] CBC Specimen Type: BLOOD No comment entered. Ordering Provider: ARIEL INFANTE Report Released Date/Time: Feb 23, 2024 11:30 AM Reporting Lab: [address] [address] Performing Lab: [address] [address] WBC 4.94 10*3/uL 4.50-11.00 RBC 4.72 10*6/uL [...] 2023 09:00 AM VA-TOBACCO USER SOME DAYS [facility] Tobacco Use History This section includes a history of the smoking, or tobacco-related health factors, that were collected on or before the date of the Encounter. The data comes from the [place] facility where the Encounter took place. 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 NO [facility] Jun 22, 2023 09:00 AM VA-TOBACCO USE MED NO [facility] Jun 22, 2023 09:00 AM VA-TOBACCO USER SOME DAYS [facility] Jan 13, 2022 02:00 PM VA-TOBACCO NEVER USED [facility] Jul 06, 2009 03:46 PM QUIT TOBACCO USE > 7 YEARS AGO [facility] Advance Directives: All historical and current [...] 29, 2023 ADVANCE DIRECTIVE JAMES GALLO [facility] Sep 19, 2017 ADVANCE DIRECTIVE DINA MCGINNIS [facility] Encounter Notes: All associated encounter notes This section contains the clinical notes associated to the Encounter. Date/Time Encounter Note(s) Provider Source Mar 21, 2024 07:54 AM PRIMARY CARE SECUR E MESSAGING: LOCAL TITLE: PRIMARY CARE SECURE MESSAGING STANDARD TITLE: PRIMARY CARE SECURE MESSAGING DATE OF NOTE: MAR 21, 2024@07:54 ENTRY DATE: MAR 21, 2024@07:54:30 AUTHOR: NELLY HARDEN EXP COSIGNER: URGENCY: STATUS: COMPLETED ------Original Message ------- Sent: 03/20/2024 11:01 AM ET From: LAKESHA SQUIRES To: FURCOLO,T _ PRIMARY CARE_[facility] Subject: General:Cold threapy device Good morning , Wanted to take a minute and say thank you. The device we discussed at my appointment to help with keeping my knee cool post surgery arrived yesterday. Thank you again for all you do. Sincerely, Vijay Squires ------Original Message ------- Sent: 03/21/2024 07:54 AM ET From: NELLY HARDEN To: LAKESHA SQUIRES Subject: General:Cold threapy device Good morning I will forward your message to Dr. Infante. Have a nice day. [facility] // NELLY HARDEN LPN License Practical Nurse Signed: 03/21/2024 07:54 NELLY HARDEN [facility]
--- OUTSIDE RECORDS SUMMARY | 2024-06-03 09:04 | XMS_ITS ---
Author Name [facility] Organization [place] Address [address] [place] [address] Care Team Providers Care Manager Contract Name Role Phone ARIEL JIMENEZ Primary Care [...] Parra's Name Patient's Relationship to Policy Parra [facility] Dec 19, 2015 [id number] [id number] [id number] [employer] PATIENT [facility] Dec 19, 2015 [id number] [employer] PATIENT [facility] May 29, 2012 [id number] [employer] PATIENT Selected Encounter This section includes the information on record at [place] for the Encounter. Date/Time Encounter Type Encounter Description Reason Pro vider Source Mar 14, 2024 02:00 PM Outpatient Encounter EVENT (HISTORICAL) IHE Encounter Template Text not used by [place] Plan of Treatment: Future Appointments (+ 6 months) and Future Tests (+/- 45 days) The Plan of Treatment section includes future care activities for the patient from all [place] [facility] This section includes future appointments and future orders which are active, pending or scheduled. Future Appointments This section includes appointments that were scheduled to occur 6 months from the date of the Encounter, up to a maximum of 20 appointments. The data comes from all [place] treatment facilities. Appointment Date/Time Appointment Type Appointme nt Facility Name Mar 25, 2024 08:00 AM [facility]BUL[facility] Mar 27, 2024 11:20 AM [facility] [place] [facility] May 03, 2024 10:00 AM AMBULATORY - MEDICINE [facility] May 10, 2024 08:30 AM AMBULATORY - PSYCHIATRY [facility] Jul 11, 2024 10:30 [facility] Aug 02, 2024 10:00 AM AMBULATORY - MEDICINE [facility] Aug 09, 2024 09:00 AM AMBULATORY - PSYCHIATRY [facility] Active, Pending, and Scheduled Orders This section includes a listing of several types of active, pending, and scheduled orders, including clinic medications orders, diagnostic test orders, procedure orders and consult orders; where the start date of the order is 45 days before the date of the Encounter or 45 days after the date of theEncounter. The data comes from all [facility]. Test Date/Time Test Type Test Details Facility Name Mar 15, 2024 01:18 PM Consult Order COMM[facility]ITY [facility]COLONOSCOPY [facility] Cons Flap Presser's Choice [facility] Mar 25, 2024 12:57 PM Consult Order COMM[facility]ITY [facility] Cons Flap Presser's Choice [facility] Lab Results: +/- 30 days of the encounter This section includes the Chemistry and Hematology Lab Results on record with [place] for the patient. Radiology Reports and Pathology Reports are provided separately, in subsequent sections. Lab Results This section contains the Chemistry/Hematology Results that were resulted 30 days before or 30 daysafter the date of the Encounter. Date/Time Source Result Type Result - Unit Interpretation Reference Range Comment Mar 14, 2024 02:51 PM [facility] CBC AND DIFF (AUTO) Specimen Type: BLOOD No comment entered. Ordering Provider: ARIEL JIMENEZ Report Released Date/Time: Mar 14, 2024 02:13 PM Reporting Lab: [facility] [address] [facility] [address] Performing Lab: [facility] [address] [facility] [address] WBC 6.17 10*3/uL 4.50-11.00 RBC 5.01 10*6/uL [...] 10*3/uL 0.00-0.00 Mar 14, 2024 02:50 PM [facility] HEMOGLOBIN A1C PANEL Specimen Type: BLOOD [...] September 27, 2023 10:28 AM Reporting Lab: [facility] [address] [facility] [address] Performing Lab: [facility] [address] [address] HEMOGLOBIN A1C 5.7 H 4.0-5.6 Mar 12, 2024 09:50 AM [facility] PT & INR (PROTIME) Specimen Type: PLASMA No comment entered. Ordering Provider: ARIEL JIMENEZ Report Released Date/Time: Feb 23, 2024 11:30 AM Reporting Lab: [facility] [address] Performing Lab: [facility] [address] INR 0.9 PROTIME 10.7 s 10.0-13.1 Mar 12, 2024 09:50 AM [facility] LIPID PANEL, NON FASTING Specimen Type: SERUM No comment entered. Ordering Provider: ARIEL JIMENEZ Report Released Date/Time: Feb 23, 2024 09:53 AM Reporting Lab: [facility] [address] [address] Performing Lab: [facility] [address] CHOLESTEROL 130 mg/dL TRIGLYCERIDE 89 mg/dL 0-150 LDL calculated 57 mg/dL 0-129 CHOL/HDL 2.4 HDL CHOLESTEROL 55 mg/dL 40-60 Mar 12, 2024 09:50 AM [facility] BASIC METABOLIC PANEL (non-fasting) Specimen Type: SERUM No comment entered. Ordering Provider: ARIEL JIMENEZ Report Released Date/Time: Feb 23, 2024 09:53 AM Reporting Lab: [facility] [address] [address] Performing Lab: [facility] [address] [facility] [address] UREA NITROGEN 26 mg/dL H 7-25 GLUCOSE 136 mg/dL H 65-100 SODIUM 141 mmol/L 135-145 POTASSIUM 4.7 mmol/L 3.5-5.0 CHLORIDE 104 mmol/L 100-110 CO2 27 meq/L 20-30 CREATININE, Serum 0.86 mg/dL 0.50-1.40 eGFR(CKD-EPI 2020) >90 mL/min >60 Mar 12, 2024 09:50 AM [facility] CBC Specimen Type: BLOOD No comment entered. Ordering Provider: ARIEL JIMENEZ Report Released Date/Time: Feb 23, 2024 11:30 AM Reporting Lab: [facility] [address] [address] Performing Lab: [address] [address] WBC 4.94 10*3/uL 4.50-11.00 RBC 4.72 10*6/uL [...] Height Weight Body Mass Index Source Mar 14, 2024 01:57 PM 97.9 95 117/74 16 95 5 220 28 [facility] Social History: Smoking Status (Most current) and Tobacco Use (All prior to encounter date) This section includes the most current, and the historical, smoking and tobacco- related health factors from the [place] facility where the Encounter took place. Current Smoking Status This section includes the most current smoking, or tobacco-related health factor, from the [place] facility where the Encounter took place. Date/Time Current Smoking Status Comment Facil ity Jun 22, 2023 09:00 AM VA-TOBACCO USER SOME DAYS [facility] Tobacco Use History This section includes a history of the smoking, or tobacco-related health factors, that were collected on or before the date of the Encounter. The data comes from the [place] facility where the Encounter took place. Date/Time Smoking Status/Tobacco Use Comment F acility Jun 22, 2023 09:00 AM VA-TOBACCO USE 30 YEARS OR MORE [facility] Jun 22, 2023 09:00 AM VA-TOBACCO USE ADVICE [facility] Jun 22, 2023 09:00 AM VA-TOBACCO USE TYPING SECTION CHIEF NO [facility] Jun 22, 2023 09:00 AM VA-TOBACCO USE MED NO [facility] Jun 22, 2023 09:00 AM VA-TOBACCO USER SOME DAYS [facility] Jan 13, 2022 02:00 PM VA-TOBACCO NEVER USED [facility] Jul 06, 2009 03:46 PM QUIT TOBACCO USE > 7 YEARS AGO [facility] Advance Directives: All historical and current Section Date Range: From patient's date of to the date document was created. This section includes ALL of a patient's completed or amended [place] Advance and Rescinded Directives. The entries below indicate that a directive exists for the patient, but an actual copy is not included with this document. The data comes from all [place] facilities. Date Advance Directives Provider Source Jun 29, 2023 ADVANCE DIRECTIVE JAMES GALLO [place] [facility] Sep 19, 2017 ADVANCE DIRECTIVE DINA MCGINNIS [facility]
--- OUTSIDE RECORDS SUMMARY | 2024-06-03 09:04 | XMS_ITS | Encounter Summary ---
Author Name [facility] [place] Address [address] [place] [address] Care Team Providers Care Housekeeping Worker Name Role Phone ARIEL JIMENEZ Primary Care [...] Parra's Name Patient's Relationship to Policy Parra [facility] Dec 19, 2015 [id number] [phone] [employer] PATIENT [facility] Dec 19, 2015 [id number] [phone] [place]AK[place] [employer] PATIENT [facility] May 29, 2012 [id number] [phone] [employer] PATIENT Selected Encounter This section includes the information on record at [place] for the Encounter. Date/Time Encounter Type Encounter Description Reason Pro vider Source Feb 26, 2024 03:40 PM Outpatient Encounter PRIMARY CARE/MEDICINE IHE Encounter Template Text not used by [place] Plan of Treatment: Future Appointments (+ 6 months) and Future Tests (+/- 45 days) The Plan of Treatment section includes future care activities for the patient from all [place] [facility]. This section includes future appointments and future orders which are active, pending or scheduled. Future Appointments This section includes appointments that were scheduled to occur 6 months from the date of the Encounter, up to a maximum of 20 appointments. The data comes from all [place] treatment facilities. Appointment Date/Time Appointment Type Appointme nt Facility Name Mar 01, 2024 10:30 AM AMBULATORY - MEDICINE [place] [place] [facility] Mar 12, 2024 09:00 AM AMBULATORY [place]IC[place] [facility] Mar 14, 2024 02:00 PM AMBULATORY - [place] [facility] Mar 25, 2024 08:00 AM AMBULATORY - [place] [facility] Mar 27, 2024 11:20 AM AMBULATORY - [place] [facility] May 03, 2024 10:00 AM [facility] May 10, 2024 08:30 AM AMBULATORY - PSYCHIATRY [facility] Jul 11, 2024 10:30 AM AM[facility]ULATORY - [facility] [place] [place] [facility] Aug 02, 2024 10:00 AM [facility] Aug 09, 2024 09:00 AM AMBULATORY PSYCHIATRY [facility] Active, Pending, and Scheduled Orders This section includes a listing of several types of active, pending, and scheduled orders, including clinic medications orders, diagnostic test orders, procedure orders and consult orders; where the start date of the order is 45 days before the date of the Encounter or 45 days after the date of theEncounter. The data comes from all [facility]. Test Date/Time Test Type Test Details Facility Name Mar 15, 2024 01:18 PM Consult Order COMMUNITY CARE-COLONOSCOPY SURVEILLANCE Cons School Adjustment Counselor's Choice [place] [facility] [facility] Mar 25, 2024 12:57 PM Consult Order COMMUNITY CARE-[facility] SKILLED HOME CARE Cons School Adjustment Counsel[facility]'s Choice [facility] Lab Results: +/- 30 days of [...] Range Comment Mar 14, 2024 02:51 PM [facility] CBC AND DIFF (AUTO) Specimen Type: BLOOD No comment entered. Ordering Provider: ARIEL JIMENEZ Report Released Date/Time: Mar 14, 2024 02:13 PM Reporting Lab: [facility] [address] [facility] [address] Performing Lab: [facility] [address] [facility] [address] WBC 6.17 10*3/uL 4.50-11.00 RBC 5.01 10*6/uL [...] 10*3/uL 0.00-0.00 Mar 14, 2024 02:50 PM [facility] HEMOGLOBIN A1C PANEL Specimen Type: [...] September 27, 2023 10:28 AM Reporting Lab: [facility] [address] [facility] [address] Performing Lab: [address] [address] HEMOGLOBIN A1C 5.7 H 4.0-5.6 Mar 12, 2024 09:50 AM [facility] PT & INR (PROTIME) Specimen Type: PLASMA No comment entered. Ordering Provider: ARIEL JIMENEZ Report Released Date/Time: Feb 23, 2024 11:30 AM Reporting Lab: [facility] [address] [facility] [address] Performing Lab: [facility] [address] [facility] [address] INR 0.9 PROTIME 10.7 s 10.0-13.1 Mar 12, 2024 09:50 AM [facility] LIPID PANEL, NON FASTING Specimen Type: SERUM No comment entered. Ordering Provider: ARIEL JIMENEZ Report Released Date/Time: Feb 23, 2024 09:53 AM Reporting Lab: [facility] [address] [facility] [address] Performing Lab: [address] [address] CHOLESTEROL 130 mg/dL TRIGLYCERIDE 89 mg/dL 0-150 LDL calculated 57 mg/dL 0-129 CHOL/HDL 2.4 HDL CHOLESTEROL 55 mg/dL 40-60 Mar 12, 2024 09:50 AM [facility] BASIC METABOLIC PANEL (non-fasting) Specimen Type: SERUM No comment entered. Ordering Provider: ARIEL JIMENEZ Report Released Date/Time: Feb 23, 2024 09:53 AM Reporting Lab: [facility] [address] [facility] [address] Performing Lab: [address] [address] UREA NITROGEN 26 mg/dL H 7-25 GLUCOSE 136 mg/dL H 65-100 SODIUM 141 mmol/L 135-145 POTASSIUM 4.7 mmol/L 3.5-5.0 CHLORIDE 104 mmol/L 100-110 CO2 27 meq/L 20-30 CREATININE, Serum 0.86 mg/dL 0.50-1.40 eGFR(CKD-EPI 2020) >90 mL/min >60 Mar 12, 2024 09:50 AM [facility] CBC Specimen Type: BLOOD No comment entered. Ordering Provider: ARIEL JIMENEZ Report Released Date/Time: Feb 23, 2024 11:30 AM Reporting Lab: [facility] [address] [facility] [address] Performing Lab: [address] [address] WBC 4.94 10*3/uL 4.50-11.00 RBC 4.72 10*6/uL [...] 2023 09:00 AM VA-TOBACCO USER SOME DAYS [facility] Tobacco Use History This section includes a history of the smoking, or tobacco-related health factors, that were collected on or before the date of the Encounter. The data comes from the [place] facility where the Encounter took place. Date/Time Smoking Status/Tobacco Use Comment F acility Jun 22, 2023 09:00 AM VA-TOBACCO USE 30 YEARS OR MORE [facility] Jun 22, 2023 09:00 AM VA-TOBACCO USE ADVICE [facility] Jun 22, 2023 09:00 AM VA-TOBACCO USE ROAD CROSSING GUARD NO [facility] Jun 22, 2023 09:00 AM VA-TOBACCO USE MED NO [facility] Jun 22, 2023 09:00 AM VA-TOBACCO USER SOME DAYS [facility] Jan 13, 2022 02:00 PM VA-TOBACCO NEVER USED [facility] Jul 06, 2009 03:46 PM QUIT TOBACCO USE > 7 YEARS AGO [facility] Advance Directives: All historical and [...] Jun 29, 2023 ADVANCE DIRECTIVE JAMES GALLO [facility] Sep 19, 2017 ADVANCE DIRECTIVE DINA MCGINNIS [facility] Encounter Notes: All associated encounter notes This section contains the clinical notes associated to the Encounter. Date/Time Encounter Note(s) Provider Source Feb 26, 2024 03:40 PM ADMINISTRATIVE NOTE: LOCAL TITLE: ADMINISTRATIVE NOTE STANDARD TITLE: ADMINISTRATIVE NOTE DATE OF NOTE: FEB 26, 2024@15:40 ENTRY DATE: FEB 26, 2024@15:40:26 AUTHOR: PRADEEP GALVEZ COSIGNER: URGENCY: STATUS: COMPLETED AMSA SPOKE TO ON THE TELEPHONE AND INFORMED HIM OF UPCOMING APPT AND THAT LABWORK IS NEEDED. /janine/ PRADEEP GALVEZ AMSDouglas Signed: 02/26/2024 15:40 [facility]AL[facility]Z [facility]
--- OUTSIDE RECORDS SUMMARY | 2024-06-03 09:04 | XMS_ITS | Encounter Summary ---
Author Name [facility] [place] Address [address] [place] [address] Care Team Providers Care [place] Opener Name Role Phone ARIEL JIMENEZ Primary Care [...] Policy Parra [facility] Dec 19, 2015 [id number] TANA NGO PATIENT [facility] Dec 19, 2015 [id number] [employer] [employer] PATIENT [facility] May 29, 2012 [id number] [employer] PATIENT Selected Encounter This section includes the information on record at [place] for the Encounter. Date/Time Encounter Type Encounter Description Reason Pro vider Source Mar 14, 2024 01:36 PM Outpatient Encounter OPTOMETRY E Encounter Template Text not used by [place] Plan of Treatment: Future Appointments (+ 6 months) and Future Tests (+/- 45 days) The Plan of Treatment section includes future care activities for the patient [facility] [place] [facility] This section includes future appointments and future [...] 2024 08:00 AM AMBULATORY - [facility]INE [facility] Mar 27, 2024 11:20 AM AMBULATORY - MEDICINE [facility] May 03, 2024 10:00 AM AMBULATORY - MEDICINE [facility] May 10, 2024 08:30 AM AMBULATORY - PS[facility]CHIATRY [facility] Jul 11, 2024 10:30 AM [facility] Aug 02, 2024 10:00 AM AMBULATORY - MEDICINE [facility] Aug 09, 2024 09:00 AM AMBULATORY [...] data comes from all [facility]. Test Date/Time Test Type Test Details Facility Name Mar 15, 2024 01:18 PM Consult Order COMMUNITY CARE-COLONOSCOPY SURVEILLANCE Cons Administrative And Program Specialist's Choice [facility] Mar 25, 2024 12:57 PM Consult Order COMMUNITY [facility] Cons Administrative And Program Specialist's Choice [facility] Lab Results: +/- 30 days [...] Range Comment Mar 14, 2024 02:51 PM [facility] CBC AND DIFF (AUTO) Specimen Type: BLOOD No comment entered. Ordering Provider: ARIEL JIMENEZ Report Released Date/Time: Mar 14, 2024 02:13 PM Reporting Lab: [facility] [address] [facility] [address] Performing Lab: [facility] [address] [facility] [address] WBC 6.17 10*3/uL 4.50-11.00 RBC 5.01 10*6/uL [...] 10*3/uL 0.00-0.00 Mar 14, 2024 02:50 PM [facility] HEMOGLOBIN A1C PANEL Specimen Type: [...] September 27, 2023 10:28 AM Reporting Lab: [facility] [address] [facility] [address] Performing Lab: [facility] [address] [facility] [address] HEMOGLOBIN A1C 5.7 H 4.0-5.6 Mar 12, 2024 09:50 AM [facility] PT & INR (PROTIME) Specimen Type: PLASMA No comment entered. Ordering Provider: ARIEL JIMENEZ Report Released Date/Time: Feb 23, 2024 11:30 AM Reporting Lab: [facility] [address] [facility] [address] Performing Lab: [facility] [address] [facility] [address] INR 0.9 PROTIME 10.7 s 10.0-13.1 Mar 12, 2024 09:50 AM [facility] LIPID PANEL, NON FASTING Specimen Type: SERUM No comment entered. Ordering Provider: ARIEL JIMENEZ Report Released Date/Time: Feb 23, 2024 09:53 AM Reporting Lab: [facility] [address] [facility] [address] Performing Lab: [facility] [address] [facility] [address] CHOLESTEROL 130 mg/dL TRIGLYCERIDE 89 mg/dL 0-150 LDL calculated 57 mg/dL 0-129 CHOL/HDL 2.4 HDL CHOLESTEROL 55 mg/dL 40-60 Mar 12, 2024 09:50 AM [facility] BASIC METABOLIC PANEL (non-fasting) Specimen Type: SERUM No comment entered. Ordering Provider: ARIEL JIMENEZ Report Released Date/Time: Feb 23, 2024 09:53 AM Reporting Lab: [facility] [address] [address] Performing Lab: [facility] [address] [facility] [address] UREA NITROGEN 26 mg/dL H 7-25 GLUCOSE 136 mg/dL H 65-100 SODIUM 141 mmol/L 135-145 POTASSIUM 4.7 mmol/L 3.5-5.0 CHLORIDE 104 mmol/L 100-110 CO2 27 meq/L 20-30 CREATININE, Serum 0.86 mg/dL 0.50-1.40 eGFR(CKD-EPI 2020) >90 mL/min >60 Mar 12, 2024 09:50 AM [facility] CBC Specimen Type: BLOOD No comment entered. Ordering Provider: ARIEL JIMENEZ Report Released Date/Time: Feb 23, 2024 11:30 AM Reporting Lab: [address] [address] Performing Lab: [address] [address] WBC 4.94 10*3/uL 4.50-11.00 RBC 4.72 10*6/uL [...] 95 117/74 16 95 5 220 28 [facility] Social History: Smoking Status (Most current) [...] AM VA-TOBACCO USE 30 YEARS OR MORE [facility] Tobacco Use History This section includes a history of the smoking, or tobacco-related health factors, that were collected on or before the date of the Encounter. The data comes from the [place] facility where the Encounter took place. Date/Time Smoking Status/Tobacco Use Comment F acility Jun 22, 2023 09:00 AM VA-TOBACCO USE 30 YEARS OR MORE [facility] Jun 22, 2023 09:00 AM VA-TOBACCO USE ADVICE [facility] Jun 22, 2023 09:00 AM VA-TOBACCO USE ANATOMY PROFESSOR NO [facility] Jun 22, 2023 09:00 AM VA-TOBACCO USE MED NO [facility] Jun 22, 2023 09:00 AM VA-TOBACCO USER SOME DAYS [facility] Jan 13, 2022 02:00 PM VA-TOBACCO NEVER USED [facility] Jul 06, 2009 03:46 PM QUIT TOBACCO USE > 7 YEARS AGO [facility] Advance Directives: All historical and [...] Jun 29, 2023 ADVANCE DIRECTIVE JAMES GALLO [facility] Sep 19, 2017 ADVANCE DIRECTIVE DINA MCGINNIS [facility] Encounter Notes: All associated encounter notes This section contains the clinical notes associated to the Encounter. Date/Time Encounter Note(s) Provider Source Mar 15, 2024 07:37 AM ADDENDUM: LOCAL TITLE: Addendum STANDARD TITLE: ADDENDUM DATE OF NOTE: MAR 15, 2024@07:37:42 ENTRY DATE: MAR 15, 2024@07:37:43 AUTHOR: GERMAINE ALICEA COSIGNER: URGENCY: STATUS: COMPLETED Spoke with Dr Darnell- he suggest patient return for a fitting appt to be trial framed with new RX. If he is still c/o of not being able to read, OK to increase add to +2.50 and see if that helps. Will ask [facility] to please contact patient for fitting appt. Glasses are located upfront with [facility] in Optometry bin /janine/ Germaine Alicea Optometry Health Director Of Donor Relations Signed: 03/15/2024 08:00 Receipt Acknowledged By: 03/15/2024 08:11 /janine/ GORGE BURGOS ADVANCED SUPERVISOR BLOOMING MILL 03/15/2024 08:06 /janine/ KAIDEN PABON OD STAFF LOGISTICS VICE PRESIDENT ========= --- Original Document --- 03/14/24 TELEPHONE NOTE/SPECIALTY CLINIC: walked into the clinic and dropped 2 new pairs of VA glasses to be checked by ships equipment engineer says that he can't read with them. a shayne placed in repair bin. /janine/ GORGE BURGOS ADVANCED SUPERVISOR [employer]LOOMING MILL Signed: 03/14/2024 13:39 Receipt Acknowledged By: 03/14/2024 14:38 /janine/ LAURA SANZ DISPENSING OPTICIAN 03/14/2024 ADDENDUM STATUS: COMPLETED Received 2 pair of glasses for evaluation. Both pairs made to order. Please advise. /janine/ LAURA SANZ DISPENSING OPTICIAN Signed: 03/14/2024 14:48 Receipt Acknowledged By: * AWAITING SIGNATURE * ETRRELL LLAMAS 03/14/2024 15:37 /janine/ Germaine Alicea Optometry Health Director Of Donor Relations for ZEV FERREIRA 03/14/2024 15:37 /janine/ Germaine Alicea Optometry Health Director Of Donor Relations 03/14/2024 ADDENDUM STATUS: COMPLETED Glasses back in bin at [facility] desk. Just to clearify... Should schedule to see his provider to schedule a fittings appointment? Please add [facility] to schedule. /janine/ LAURA SANZ DISPENSING OPTICIAN Signed: 03/14/2024 14:51 Receipt Acknowledged By: * AWAITING SIGNATURE * TERRELL LLAMAS 03/15/2024 08:01 /janine/ Germaine Alicea Optometry Health Director Of Donor Relations for ZEV FERREIRA 03/15/2024 08:01 /janine/ Germaine Alicea Optometry Health Director Of Donor Relations GERMAINE ALICEA [place] [facility] [place] [facility] Mar 14, 2024 02:49 PM ADDENDUM: LOCAL TITLE: Addendum STANDARD TITLE: ADDENDUM DATE OF NOTE: MAR 14, 2024@14:49:45 ENTRY DATE: MAR 14, 2024@14:49:45 AUTHOR: LAURA SANZ COSIGNER: URGENCY: STATUS: COMPLETED Glasses back in bin at [facility] desk. Just to clearify... Should schedule to see his provider to schedule a fittings appointment? Please add [facility] to schedule. /janine/ LAURA SANZ DISPENSING OPTICIAN Signed: 03/14/2024 14:51 Receipt Acknowledged By: 03/15/2024 08:40 /janine/ TERRELL LLAMAS OPTOMETRY TECH 03/15/2024 08:01 /janine/ Germaine Alicea Optometry Health Director Of Donor Relations for ZEV FERREIRA 03/15/2024 08:01 /janine/ Germaine Alicea Optometry Health Director Of Donor Relations ========= --- Original Document --- 03/14/24 TELEPHONE NOTE/SPECIALTY CLINIC: walked into the clinic and dropped 2 new pairs of VA glasses to be checked by ships equipment engineer says that he can't read with them. a shayne placed in repair bin. /es/ GORGE BURGOS ADVANCED SUPERVISOR BLOOMING MILL Signed: 03/14/2024 13:39 Receipt Acknowledged By: 03/14/2024 14:38 /jeff SANZ DISPENSING OPTICIAN 03/14/2024 ADDENDUM STATUS: COMPLETED Received 2 pair of glasses for evaluation. Both pairs made to order. Please advise. /janine/ LAURA SANZ DISPENSING OPTICIAN Signed: 03/14/2024 14:48 Receipt Acknowledged By: 03/15/2024 08:35 /janine/ TERRELL LLAMAS OPTOMETRY TECH 03/14/2024 15:37 /janine/ Germaine Alicea Optometry Health Director Of Donor Relations for ZEV FERREIRA 03/14/2024 15:37 /janine/ Germaine Alicea Optometry Health Director Of Donor Relations 03/15/2024 ADDENDUM STATUS: COMPLETED Spoke with Dr Darnell- he suggest patient return for a fitting appt to be trial framed with new RX. If he is still c/o of not being able to read, OK to increase add to +2.50 and see if that helps. Will ask [facility] to please contact patient for fitting appt. Glasses are located upfront with MSA in Optometry bin /janine/ Germaine Alicea Optometry Health Director Of Donor Relations Signed: 03/15/2024 08:00 Receipt Acknowledged By: 03/15/2024 08:11 /janine/ GORGE BURGOS ADVANCED SUPERVISOR BLOOMING MILL 03/15/2024 08:06 /janine/ KAIDEN PABON OD STAFF LOGISTICS VICE PRESIDENT 03/15/2024 ADDENDUM STATUS: COMPLETED Called ,no answer.[facility] /janine/ GORGE BURGOS ADVANCED SUPERVISOR BLOOMING MILL Signed: 03/15/2024 08:13 LAURA SANZ [facility]L [facility] [place] [facility] Mar 14, 2024 02:48 PM ADDENDUM: LOCAL TITLE: Addendum STANDARD TITLE: ADDENDUM DATE OF NOTE: MAR 14, 2024@14:48:15 ENTRY DATE: MAR 14, 2024@14:48:15 AUTHOR: LAURA SANZ EXP COSIGNER: URGENCY: STATUS: COMPLETED Received 2 pair of glasses for evaluation. Both pairs made to order. Please advise. /janine/ LAURA SANZ DISPENSING OPTICIAN Signed: 03/14/2024 14:48 Receipt Acknowledged By: 03/15/2024 08:35 /jeff LLAMAS OPTOMETRY TECH 03/14/2024 15:37 /janine/ Germaine Alicea Optometry Health Director Of Donor Relations for ZEV FERREIRA 03/14/2024 15:37 /janine/ Germaine Alicea Optometry Health Director Of Donor Relations ========= --- Original Document --- 03/14/24 TELEPHONE NOTE/SPECIALTY CLINIC: Marshall walked into the clinic and dropped 2 new pairs of VA glasses to be checked by ships equipment engineer says that he can't read with them. a shayne placed in repair bin. /janine/ GORGE BURGOS ADVANCED SUPERVISOR BLOOMING MILL Signed: 03/14/2024 13:39 Receipt Acknowledged By: 03/14/2024 14:38 /janine/ LAURA SANZ DISPENSING OPTICIAN 03/14/2024 ADDENDUM STATUS: COMPLETED Glasses back in bin at [facility] desk. Just to clearify... Should schedule to see his provider to schedule a fittings appointment? Please add [facility] to schedule. /janine/ LAURA SANZ DISPENSING OPTICIAN Signed: 03/14/2024 14:51 Receipt Acknowledged By: * AWAITING SIGNATURE * TERRELL LLAMAS 03/15/2024 08:01 /janine/ Germaine Alicea Optometry Health Director Of Donor Relations for ZEV FERREIRA 03/15/2024 08:01 /janine/ Germaine Alicea Optometry Health Director Of Donor Relations 03/15/2024 ADDENDUM STATUS: COMPLETED Spoke with Dr Darnell- he suggest patient return for a fitting appt to be trial framed with new RX. If he is still c/o of not being able to read, OK to increase add to +2.50 and see if that helps. Will ask [facility] to please contact patient for fitting appt. Glasses are located upfront with MSA in Optometry bin /janine/ Germaine Alicea Optometry Health Director Of Donor Relations Signed: 03/15/2024 08:00 Receipt Acknowledged By: 03/15/2024 08:11 /janine/ GORGE BURGOS ADVANCED SUPERVISOR BLOOMING MILL 03/15/2024 08:06 /es/ KAIDEN PABON OD STAFF LOGISTICS VICE PRESIDENT 03/15/2024 ADDENDUM STATUS: COMPLETED Called ,no answer.LVM /janine/ GORGE BURGOS ADVANCED SUPERVISOR BLOOMING MILL Signed: 03/15/2024 08:13 LAURA SANZ [facility]L [facility] [place] [facility] Mar 14, 2024 01:36 PM TELEPHONE ENCOUNTER NOTE: LOCAL TITLE: TELEPHONE NOTE/SPECIALTY CLINIC STANDARD TITLE: TELEPHONE ENCOUNTER NOTE DATE OF NOTE: MAR 14, 2024@13:36 ENTRY DATE: MAR 14, 2024@13:36:28 AUTHOR: GORGE BURGOS EXP COSIGNER: URGENCY: STATUS: COMPLETED TELEPHONE NOTE/SPECIALTY CLINIC Has ADDENDA Marshall walked into the clinic and dropped 2 new pairs of VA glasses to be checked by ships equipment engineer says that he can't read with them. a shayne placed in repair bin. /janine/ GORGE BURGOS ADVANCED SUPERVISOR BLOOMING MILL Signed: 03/14/2024 13:39 Receipt Acknowledged By: 03/14/2024 14:38 /janine/ LAURA SANZ DISPENSING OPTICIAN 03/14/2024 ADDENDUM STATUS: COMPLETED Received 2 pair of glasses for evaluation. Both pairs made to order. Please advise. /jeff SANZ DISPENSING OPTICIAN Signed: 03/14/2024 14:48 Receipt Acknowledged By: * AWAITING SIGNATURE * TERRELL LLAMAS 03/14/2024 15:37 /janine/ Germaine Alicea Optometry Health Director Of Donor Relations for ZEV FERREIRA 03/14/2024 15:37 /janine/ Germaine Alicea Optometry Health Director Of Donor Relations 03/14/2024 ADDENDUM STATUS: COMPLETED Glasses back in bin at [facility] desk. Just to clearify... Should schedule to see his provider to schedule a fittings appointment? Please add [facility] to schedule. /janine/ LAURA SANZ DISPENSING OPTICIAN Signed: 03/14/2024 14:51 Receipt Acknowledged By: * AWAITING SIGNATURE * TERRELL LLAMAS 03/15/2024 08:01 /janine/ Germaine Alicea Optometry Health Director Of Donor Relations for ZEV FERREIRA 03/15/2024 08:01 /janine/ Germaine Alicea Optometry Health Director Of Donor Relations 03/15/2024 ADDENDUM STATUS: COMPLETED Spoke with Dr Darnell- he suggest patient return for a fitting appt to be trial framed with new RX. If he is still c/o of not being able to read, OK to increase add to +2.50 and see if that helps. Will ask [facility] to please contact patient for fitting appt. Glasses are located upfront with MSA in Optometry savita /janine/ Germaine Alicea Optometry Health Director Of Donor Relations Signed: 03/15/2024 08:00 Receipt Acknowledged By: 03/15/2024 08:11 /janine/ GORGE BURGOS ADVANCED SUPERVISOR BLOOMING MILL 03/15/2024 08:06 /janine/ KAIDEN PABON OD STAFF LOGISTICS VICE PRESIDENT 03/15/2024 ADDENDUM STATUS: COMPLETED Called ,no answer.[facility] /janine/ GORGE BURGOS ADVANCED SUPERVISOR BLOOMING MILL Signed: 03/15/2024 08:13 GORGE BURGOS [place] [facility]
--- OUTSIDE RECORDS SUMMARY | 2024-06-03 09:04 | XMS_ITS ---
Author Name [place] Address [address] [place] [address] Care Team Providers Care Sports Equipment Repairer Name Role Phone ARIEL JIMENEZ Primary Care Provider Ismael aptel Insurance Providers: All historical and current Section Date Range: From patient's date of to the date document was created. This section includes the names of all active insurance providers for the patient. Insurance Provider Type of Coverage Plan Name Start of Policy Coverage End of Policy Coverage Group Number Member ID Insurance Provider's Telephone Number Policy Parra's Name Patient's Relationship to Policy Parra [facility] Dec 19, 2015 [id number] TANA NGO PATIENT [facility] Dec 19, 2015 [id number] [place] NGO PATIENT [facility] May 29, 2012 [id number] [phone] TANA NGO PATIENT Selected Encounter This section includes the information on record at [place] for the Encounter. Date/Time Encounter Type Encounter Description Reason Pro vider Source Mar 15, 2024 12:00 AM Outpatient Encounter EVENT (HISTORICAL) IHE Encounter Template Text not used by [place] Plan of Treatment: Future Appointments (+ 6 months) and Future Tests (+/- 45 days) The Plan of Treatment section includes future care activities for the patient [facility] [place] [facility] This section includes future appointments and [...] 25, 2024 08:00 AM [facility] Mar 27, 2024 11:20 AM AMBULATORY - MEDICINE [place] [facility] May 03, 2024 10:00 AM AMBULATORY - MEDICINE [facility] May 10, 2024 08:30 AM AMBULATORY - PSYCHIATRY [facility] Jul 11, 2024 10:30 AM [facility] Aug 02, 2024 10:00 AM AMBULATORY - MEDICINE [facility] Aug 09, 2024 09:00 AM AMBULATORY [...] of theEncounter. The data comes from all [facility]. Test Date/Time Test Type Test Details Facility Name Mar 15, 2024 01:18 PM Consult Order COMMUNITY CARE-COLONOSCOPY SURVEILLANCE Cons In House Cra[facility] Mar 25, 2024 12:57 PM Consult Order COMMUNITY [facility] SKILL[facility] HOME CARE Cons In House Cra's Choice [facility] Lab Results: +/- 30 days of [...] Range Comment Mar 14, 2024 02:51 PM [facility] CBC AND DIFF (AUTO) Specimen Type: BLOOD No comment entered. Ordering Provider: ARIEL JIMENEZ Report Released Date/Time: Mar 14, 2024 02:13 PM Reporting Lab: [facility] [address] [facility] [address] Performing Lab: [facility] [address] [facility] [address] WBC 6.17 10*3/uL 4.50-11.00 RBC 5.01 10*6/uL [...] 10*3/uL 0.00-0.00 Mar 14, 2024 02:50 PM [facility] HEMOGLOBIN A1C PANEL Specimen Type: BLOOD [...] September 27, 2023 10:28 AM Reporting Lab: [facility] [address] [facility] [address] Performing Lab: [facility] [address] [address] HEMOGLOBIN A1C 5.7 H 4.0-5.6 Mar 12, 2024 09:50 AM [facility] PT & INR (PROTIME) Specimen Type: PLASMA No comment entered. Ordering Provider: ARIEL JIMENEZ Report Released Date/Time: Feb 23, 2024 11:30 AM Reporting Lab: [facility] [address] Performing Lab: [facility] [address] INR 0.9 PROTIME 10.7 s 10.0-13.1 Mar 12, 2024 09:50 AM [facility] LIPID PANEL, NON FASTING Specimen Type: SERUM No comment entered. Ordering Provider: ARIEL JIMENEZ Report Released Date/Time: Feb 23, 2024 09:53 AM Reporting Lab: [facility] [address] [address] Performing Lab: [facility] [address] CHOLESTEROL 130 mg/dL TRIGLYCERIDE 89 mg/dL 0-150 LDL calculated 57 mg/dL 0-129 CHOL/HDL 2.4 HDL CHOLESTEROL 55 mg/dL 40-60 Mar 12, 2024 09:50 AM [facility] BASIC METABOLIC PANEL (non-fasting) Specimen Type: SERUM No comment entered. Ordering Provider: ARIEL JIMENEZ Report Released Date/Time: Feb 23, 2024 09:53 AM Reporting Lab: [facility] [address] [address] Performing Lab: [facility] [address] [facility] [address] UREA NITROGEN 26 mg/dL H 7-25 GLUCOSE 136 mg/dL H 65-100 SODIUM 141 mmol/L 135-145 POTASSIUM 4.7 mmol/L 3.5-5.0 CHLORIDE 104 mmol/L 100-110 CO2 27 meq/L 20-30 CREATININE, Serum 0.86 mg/dL 0.50-1.40 eGFR(CKD-EPI 2020) >90 mL/min >60 Mar 12, 2024 09:50 AM [facility] CBC Specimen Type: BLOOD No comment entered. Ordering Provider: ARIEL JIMENEZ Report Released Date/Time: Feb 23, 2024 11:30 AM Reporting Lab: [address] [address] Performing Lab: [address] [address] WBC 4.94 10*3/uL 4.50-11.00 RBC 4.72 10*6/uL [...] and tobacco- related health factors from the [place] facility where the Encounter took place. Current Smoking Status This section includes the most current smoking, or tobacco-related health factor, from the [place] facility where the Encounter took place. Date/Time Current Smoking Status Comment Rosendo ity Jun 22, 2023 09:00 AM VA-TOBACCO USER SOME DAYS [facility] Tobacco Use History This section includes a history of the smoking, or tobacco-related health factors, that were collected on or before the date of the Encounter. The data comes from the [place] facility where the Encounter took place. Date/Time Smoking Status/Tobacco Use Comment F acility Jun 22, 2023 09:00 AM VA-TOBACCO USE 30 YEARS OR MORE [facility] Jun 22, 2023 09:00 AM VA-TOBACCO USE ADVICE [facility] Jun 22, 2023 09:00 AM VA-TOBACCO USE ASIAN STUDIES PROGRAM CHAIR NO [facility] Jun 22, 2023 09:00 AM VA-TOBACCO USE MED NO [facility] Jun 22, 2023 09:00 AM VA-TOBACCO USER SOME DAYS [place] [facility]TR W[facility] Jan 13, 2022 02:00 PM VA-TOBACCO NEVER USED [facility] Jul 06, 2009 03:46 PM QUIT TOBACCO USE > 7 YEARS AGO [facility] Advance Directives: All historical and [...] Jun 29, 2023 ADVANCE DIRECTIVE JAMES GALLO [place] [facility] Sep 19, 2017 ADVANCE DIRECTIVE DINA MCGINNIS [facility]
--- OUTSIDE RECORDS SUMMARY | 2024-06-03 09:04 | XMS_ITS ---
Author Name [facility] [place] Address [address] [place] [address] Care Team Providers Care Conveyor Line Battery Charger Name Role Phone ARIEL JIMENEZ Primary Care [...] Parra's Name Patient's Relationship to Policy Parra [facility] Dec 19, 2015 [id number] [employer] PATIENT [facility] Dec 19, 2015 [id number] [employer] PATIENT [facility] May 29, 2012 [id number] [employer] PATIENT Selected Encounter This section includes the information on record at [place] for the Encounter. Date/Time Encounter Type Encounter Description Reason Provider Source Feb 21, 2024 08:40 AM FIT SPECTACLES MULTIFOCAL OPTOMETRY ICD-10-CM Z46.0 Encounter for fit/adjst of spectacles and contact lenses MATIAS HOUSE [facility] Encounter Template Text not used by [place] Assessments - Encounter Diagnoses This section includes the primary and secondary diagnoses documented for the Encounter. Date/Time Primary/Secondary Diagnosis Diagnosis Name Provider Source Feb 21, 2024 08:45 AM PRIMARY Encounter for fit/adjst of spectacles and contact lenses LONNIE HOUSE [facility] Plan of Treatment: Future Appointments (+ 6 months) and Future Tests (+/- 45 days) The Plan of Treatment section includes future care activities for the patient [facility] [place] [facility] This section includes future appointments and future orders which are active, pending or scheduled. Future Appointments This section includes appointments that were scheduled to occur 6 months from the date of the Encounter, up to a maximum of 20 appointments. The data comes from all [facility]. Appointment Date/Time Appointment Type Appointme nt Facility Name Mar 01, 2024 10:30 AM AMBULATORY - [place]ICINE [facility] [place] [facility] Mar 12, 2024 09:00 AM AMBULATORY - MEDICINE [facility] [facility] Mar 14, 2024 02:00 PM AMBULATORY - MEDICINE [facility] [place] [facility] Mar 25, 2024 08:00 AM AMBULATORY [facility] [place] [facility] Mar 27, 2024 11:20 AM AMBULATORY - MEDICINE [facility] [place] [facility] May 03, 2024 10:00 AM AMBULATORY - MEDICINE [facility] [place] [facility] May 10, 2024 08:30 AM AMBULATORY - PSYCHIATRY [facility] Jul 11, 2024 10:30 AM AMBULATORY - [facility] [place] [place] [facility] Aug 02, 2024 10:00 AM AMBULATORY - MEDICINE [facility] [place] [facility] Aug 09, 2024 09:00 AM AMBULATORY - PSYCHIATRY [facility] Active, Pending, and Scheduled Orders This section includes a listing of several types of active, pending, and scheduled orders, including clinic medications orders, diagnostic test orders, procedure orders and consult orders; where the start date of the order is 45 days before the date of the Encounter or 45 days after the date of theEncounter. The data comes from all [facility]. Test Date/Time Test Type Test Details Facility Name Mar 15, 2024 01:18 PM Consult Order COMMUNITY CARE-COLONOSCOPY SURVEILLANCE Cons Gasoline Plant Operator's Choice [facility] Mar 25, 2024 12:57 PM Consult Order COMM[facility]ITY [facility] SKILLED HOME CARE Cons Gasoline Plant Operator's Choice [facility] Lab Results: +/- 30 days of the encounter This section includes the Chemistry and Hematology Lab Results on record with [place] for the patient. Radiology Reports and Pathology Reports are provided separately, in subsequent sections. Lab Results This section contains the Chemistry/Hematology Results that were resulted 30 days before or 30 daysafter the date of the Encounter. Date/Time Source Result Type Result - Unit Interpretation Reference Range Comment Mar 14, 2024 02:51 PM [facility] CBC AND DIFF (AUTO) Specimen Type: BLOOD No comment entered. Ordering Provider: ARIEL JIMENEZ Report Released Date/Time: Mar 14, 2024 02:13 PM Reporting Lab: [facility] [address] [address] Performing Lab: [facility] [address] [address] WBC 6.17 10*3/uL 4.50-11.00 RBC 5.01 10*6/uL [...] 10*3/uL 0.00-0.00 Mar 14, 2024 02:50 PM [facility] HEMOGLOBIN A1C PANEL Specimen Type: BLOOD Comment: [...] September 27, 2023 10:28 AM Reporting Lab: [address] [address] Performing Lab: [address] [address] HEMOGLOBIN A1C 5.7 H 4.0-5.6 Mar 12, 2024 09:50 AM [facility] PT & INR (PROTIME) Specimen Type: PLASMA No comment entered. Ordering Provider: ARIEL JIMENEZ Report Released Date/Time: Feb 23, 2024 11:30 AM Reporting Lab: [facility] [address] [address] Performing Lab: [address] [address] INR 0.9 PROTIME 10.7 s 10.0-13.1 Mar 12, 2024 09:50 AM [facility] LIPID PANEL, NON FASTING Specimen Type: SERUM No comment entered. Ordering Provider: ARIEL JIMENEZ Report Released Date/Time: Feb 23, 2024 09:53 AM Reporting Lab: [address] [address] Performing Lab: [facility] [address] [address] CHOLESTEROL 130 mg/dL TRIGLYCERIDE 89 mg/dL 0-150 LDL calculated 57 mg/dL 0-129 CHOL/HDL 2.4 HDL CHOLESTEROL 55 mg/dL 40-60 Mar 12, 2024 09:50 AM [facility] BASIC METABOLIC PANEL (non-fasting) Specimen Type: SERUM No comment entered. Ordering Provider: ARIEL JIMENEZ Report Released Date/Time: Feb 23, 2024 09:53 AM Reporting Lab: [facility] [address] [address] Performing Lab: [facility] [address] [address] UREA NITROGEN 26 mg/dL H 7-25 GLUCOSE 136 mg/dL H 65-100 SODIUM 141 mmol/L 135-145 POTASSIUM 4.7 mmol/L 3.5-5.0 CHLORIDE 104 mmol/L 100-110 CO2 27 meq/L 20-30 CREATININE, Serum 0.86 mg/dL 0.50-1.40 eGFR(CKD-EPI 2020) >90 mL/min >60 Mar 12, 2024 09:50 AM [facility] CBC Specimen Type: BLOOD No comment entered. Ordering Provider: ARIEL JIMENEZ Report Released Date/Time: Feb 23, 2024 11:30 AM Reporting Lab: [facility] [address] [address] Performing Lab: [facility] [address] [address] WBC 4.94 10*3/uL 4.50-11.00 RBC 4.72 10*6/uL [...] and tobacco- related health factors from the [place] facility where the Encounter took place. Current Smoking Status This section includes the most current smoking, or tobacco-related health factor, from the [place] facility where the Encounter took place. Date/Time Current Smoking Status Comment Facil ity Jun 22, 2023 09:00 AM VA-TOBACCO USER SOME DAYS [facility] Tobacco Use History This section includes a history of the smoking, or tobacco-related health factors, that were collected on or before the date of the Encounter. The data comes from the [place] facility where the Encounter took place. Date/Time Smoking Status/Tobacco Use Comment F acility Jun 22, 2023 09:00 AM VA-TOBACCO USE 30 YEARS OR MORE [place] [facility] Jun 22, 2023 09:00 AM VA-TOBACCO USE ADVICE [place] [facility] Jun 22, 2023 09:00 AM VA-TOBACCO USE MANAGER STATE NO [place] [facility] Jun 22, 2023 09:00 AM VA-TOBACCO USE MED NO [facility] [place] [facility] Jun 22, 2023 09:00 AM VA-TOBACCO USER SOME DAYS [place] [facility] [facility] Jan 13, 2022 02:00 PM VA-TOBACCO NEVER USED [facility] Jul 06, 2009 03:46 PM QUIT TOBACCO USE > 7 YEARS AGO [facility] Advance Directives: All historical and current Section Date Range: From patient's date of to the date document was created. This section includes ALL of a patient's completed or amended [place] Advance and Rescinded Directives. The entries below indicate that a directive exists for the patient, but an actual copy is not included with this document. The data comes from all [place] facilities. Date Advance Directives Provider Source Jun 29, 2023 ADVANCE DIRECTIVE JAMES GALLO [place] [facility] Sep 19, 2017 ADVANCE DIRECTIVE DINA MCGINNIS [facility] Encounter Notes: All associated encounter notes This section contains the clinical notes associated to the Encounter. Date/Time Encounter Note(s) Provider Source Feb 21, 2024 08:44 AM OPTOMETRY NOTE: LOCAL TITLE: OPTOMETRY NOTE STANDARD TITLE: OPTOMETRY NOTE DATE OF NOTE: FEB 21, 2024@08:44 ENTRY DATE: FEB 21, 2024@08:44:39 AUTHOR: LONNIE HOUSE CHR EXP COSIGNER: URGENCY: STATUS: COMPLETED Patient returned for eyeglass fitting. OPT HT fit and ordered patient 2 pairs of PAL eyeglasses as requested by provider. /janine/ [facility] Carrier Signed: 02/21/2024 08:45 LONNIE HOUSE ELEONORA [place] [facility]
--- OUTSIDE RECORDS SUMMARY | 2024-06-03 09:04 | XMS_ITS | Encounter Summary ---
Author Name [place] Address [address] [place] [address] Care Team Providers Care Manager Web Name Role Phone ARIEL JIMENEZ Primary Care [...] [facility] Dec 19, 2015 [id number] [employer] PATIENT [facility] Dec 19, 2015 [id number] [phone] [employer]AK[employer] NGO [facility] May [birth year], 2012 [id number] [phone] [employer] PATIENT Selected Encounter This section includes the information on record at [place] for the Encounter. Date/Time Encounter Type Encounter Description Reason Pro vider Source Apr 11, 2024 09:50 AM Outpatient Encounter PHYSICAL THERAPY IHE Encounter Template Text not used by [place] Plan of Treatment: Future Appointments (+ 6 months) and Future Tests (+/- 45 days) The Plan of Treatment section includes future care activities for the patient from all [place] [facility] [place] This section includes future appointments and future [...] Jul 11, 2024 10:30 AM AM[facility]ULATORY - [facility] Aug 02, 2024 10:00 AM AMBULATORY [...] of theEncounter. The data comes from all [place] treatment [facility]. Test Date/Time Test Type Test Details Facility Name Mar 15, 2024 01:18 PM Consult Order COMMUNITY CARE-COLONOSCOPY SURVEILLANCE Cons Gravity Manager's Choice [facility] Mar 25, 2024 12:57 PM Consult Order COMMUNITY CARE-[facility]EC SKILLED HOME CARE Cons Gravity Manager's Choice [facility] Lab Results: +/- 30 days of [...] Range Comment Mar 14, 2024 02:51 PM [facility] CBC AND DIFF (AUTO) Specimen Type: BLOOD No comment entered. Ordering Provider: ARIEL JIMENEZ Report Released Date/Time: Mar 14, 2024 02:13 PM Reporting Lab: [facility] [address] [facility] [address] Performing Lab: [facility] [address] [facility] [facility] [address] WBC 6.17 10*3/uL 4.50-11.00 RBC 5.01 10*6/uL [...] 10*3/uL 0.00-0.00 Mar 14, 2024 02:50 PM [facility] HEMOGLOBIN A1C PANEL Specimen Type: BLOOD [...] September 27, 2023 10:28 AM Reporting Lab: [facility] [address] [facility] [facility] [address] Performing Lab: [facility] [address] [facility] [address] HEMOGLOBIN A1C 5.7 H 4.0-5.6 Social History: [...] 2023 09:00 AM VA-TOBACCO USER SOME DAYS [facility] Tobacco Use [...] 30 YEARS OR MORE [place] CNTR [facility] Jun 22, 2023 09:00 AM VA-TOBACCO USE ADVICE [place] CNTR [facility] Jun 22, 2023 09:00 AM VA-TOBACCO USE LINE SUPPLY NO [place] CNTRL [facility]N [facility] Jun 22, 2023 09:00 AM VA-TOBACCO USE MED NO [place] CNTR [facility] Jun 22, 2023 09:00 AM VA-TOBACCO USER SOME DAYS [place] [facility] Jan 13, 2022 02:00 PM VA-TOBACCO NEVER USED [facility] Jul 06, 2009 03:46 PM QUIT TOBACCO USE > 7 YEARS AGO [facility] Advance Directives: [...] Jun 29, 2023 ADVANCE DIRECTIVE JAMES GALLO [facility] Sep 19, 2017 ADVANCE DIRECTIVE MCGINNISDINA BC [facility] Encounter Notes: All associated encounter notes This section contains the clinical notes associated to the Encounter. Date/Time Encounter Note(s) Provider Source Apr 11, 2024 09:50 AM ADMINISTRATIVE NOT E: LOCAL TITLE: ADMINISTRATIVE NOTE STANDARD TITLE: ADMINISTRATIVE NOTE DATE OF NOTE: APR 11, 2024@09:50 ENTRY DATE: APR 11, 2024@09:50:24 AUTHOR: SILVESTRE EL EXP COSIGNER: URGENCY: STATUS: COMPLETED Fax received from [facility] Orthopedic surgeons,ordered by Reshma Crystal PA-C phone requesting folded wheeled walker urgent Fax at [facility] desk Alerting PT /janine/ SILVESTRE EL SUPERVISORY WEAVER HAND Signed: 04/11/2024 09:52 Receipt Acknowledged By: 04/15/2024 08:30 /janine/ DANIELITO GRANGER PT, DPT PHYSICAL THERAPIST SILVESTRE EL [facility]
--- OUTSIDE RECORDS SUMMARY | 2024-06-03 09:04 | XMS_ITS ---
Author Name [place] Address [address] [place] [address] Care Team Providers Care Metal Gauge Maker Name Role Phone ARIEL JIMENEZ Primary [...] Parra's Name Patient's Relationship to Policy Parra [facility] Dec 19, 2015 [id number] [employer] PATIENT [facility] Dec 19, 2015 [id number] [employer] PATIENT [facility] May 29, 2012 [id number] [employer] PATIENT Selected Encounter This section includes the information on record at [place] for the Encounter. Date/Time Encounter Type Encounter Description Reason Provider Source Mar 27, 2024 11:20 AM FIT SPECTACLES MULTIFOCAL OPTOMETRY ICD-10-CM Z46.0 Encounter for fit/adjst of spectacles and contact lenses ZEV FERREIRA [facility] Encounter Template Text not used by [place] Assessments - Encounter Diagnoses This section includes the primary and secondary diagnoses documented for the Encounter. Date/Time Primary/Secondary Diagnosis Diagnosis Name Provider Source Mar 27, 2024 12:33 PM PRIMARY Encounter for fit/adjst of spectacles and contact lenses ZEV FERREIRA [facility] Plan of Treatment: Future Appointments (+ 6 months) and Future Tests (+/- 45 days) The Plan of Treatment section includes future care activities for the patient from all [place] [facility]. This section includes future [...] - MEDICINE [facility] May 10, 2024 08:30 AM AMBULATORY - PSYCHIATRY [facility] Jul 11, 2024 10:30 AM AM[facility]ULATORY - [facility] Aug 02, 2024 10:00 AM AMBULATORY - MEDICINE [facility] Aug 09, 2024 09:00 AM AMBULATORY [...] theEncounter. The data comes from all [facility] facilities. Test Date/Time Test Type Test Details Facility Name Mar 15, 2024 01:18 PM Consult Order COMMUNITY CARE-COLONOSCOPY SURVEILLANCE Cons Building Official's Choice [facility] Mar 25, 2024 12:57 PM Consult Order COMMUNITY CARE-[facility]EC SKILLED HOME CARE Cons Building Official's Choice [facility] Lab Results: +/- 30 days of the [...] Range Comment Mar 14, 2024 02:51 PM [facility] CBC AND DIFF (AUTO) Specimen Type: BLOOD No comment entered. Ordering Provider: ARIEL JIMENEZ Report Released Date/Time: Mar 14, 2024 02:13 PM Reporting Lab: [facility] [address] [facility] [address] Performing Lab: [facility] [address] [facility] [address] WBC 6.17 10*3/uL 4.50-11.00 RBC 5.01 10*6/uL [...] 10*3/uL 0.00-0.00 Mar 14, 2024 02:50 PM [facility] HEMOGLOBIN A1C PANEL Specimen Type: BLOOD Comment: [...] September 27, 2023 10:28 AM Reporting Lab: [facility] [address] [facility] [address] Performing Lab: [address] [address] HEMOGLOBIN A1C 5.7 H 4.0-5.6 Mar 12, 2024 09:50 AM [facility] LIPID PANEL, NON FASTING Specimen Type: SERUM No comment entered. Ordering Provider: ARIEL JIMENEZ Report Released Date/Time: Feb 23, 2024 09:53 AM Reporting Lab: [facility] [address] [facility] [facility] [address] Performing Lab: [facility] [address] [facility] [address] CHOLESTEROL 130 mg/dL TRIGLYCERIDE 89 mg/dL 0-150 LDL calculated 57 mg/dL 0-129 CHOL/HDL 2.4 HDL CHOLESTEROL 55 mg/dL 40-60 Mar 12, 2024 09:50 AM [facility] PT & INR (PROTIME) Specimen Type: PLASMA No comment entered. Ordering Provider: ARIEL JIMENEZ Report Released Date/Time: Feb 23, 2024 11:30 AM Reporting Lab: [facility] [address] [facility] [facility] [address] Performing Lab: [address] [address] INR 0.9 PROTIME 10.7 s 10.0-13.1 Mar 12, 2024 09:50 AM [facility] BASIC METABOLIC PANEL (non-fasting) Specimen Type: SERUM No comment entered. Ordering Provider: ARIEL JIMENEZ Report Released Date/Time: Feb 23, 2024 09:53 AM Reporting Lab: [facility] [address] [facility] [facility] [address] Performing Lab: [address] [address] UREA NITROGEN 26 mg/dL H 7-25 GLUCOSE 136 mg/dL H 65-100 SODIUM 141 mmol/L 135-145 POTASSIUM 4.7 mmol/L 3.5-5.0 CHLORIDE 104 mmol/L 100-110 CO2 27 meq/L 20-30 CREATININE, Serum 0.86 mg/dL 0.50-1.40 eGFR(CKD-EPI 2020) >90 mL/min >60 Mar 12, 2024 09:50 AM [facility] CBC Specimen Type: BLOOD No comment entered. Ordering Provider: ARIEL JIMENEZ Report Released Date/Time: Feb 23, 2024 11:30 AM Reporting Lab: [address] [address] Performing Lab: [address] [address] WBC 4.94 10*3/uL 4.50-11.00 RBC 4.72 10*6/uL [...] place. Date/Time Current Smoking Status Comment Facil joanne Jun 22, 2023 09:00 AM VA-TOBACCO USER SOME DAYS [facility] Tobacco Use History This section includes a history of the smoking, or tobacco-related health factors, that were collected on or before the date of the Encounter. The data comes from the [place] facility where the Encounter took place. Date/Time Smoking Status/Tobacco Use Comment F acility Jun 22, 2023 09:00 AM VA-TOBACCO USE 30 YEARS OR MORE [facility] Jun 22, 2023 09:00 AM VA-TOBACCO USE ADVICE [facility] Jun 22, 2023 09:00 AM VA-TOBACCO USE HAM FACER NO [facility] Jun 22, 2023 09:00 AM VA-TOBACCO USE MED NO [facility] Jun 22, 2023 09:00 AM VA-TOBACCO USER SOME DAYS [facility] Jan 13, 2022 02:00 PM VA-TOBACCO NEVER USED [facility] Jul 06, 2009 03:46 PM QUIT TOBACCO USE > 7 YEARS AGO [facility] Advance Directives: All historical and current Section [...] Jun 29, 2023 ADVANCE DIRECTIVE JAMES GALLO [facility] Sep 19, 2017 ADVANCE DIRECTIVE DINA MCGINNIS [facility] Encounter Notes: All associated encounter notes This section contains the clinical notes associated to the Encounter. Date/Time Encounter Note(s) Provider Source Mar 27, 2024 12:29 PM OPTOMETRY NOTE: LOCAL TITLE: OPTOMETRY NOTE STANDARD TITLE: OPTOMETRY NOTE DATE OF NOTE: MAR 27, 2024@12:29 ENTRY DATE: MAR 27, 2024@12:29:54 AUTHOR: ZEV FERREIRA COSIGNER: URGENCY: STATUS: COMPLETED Patient came in today to [place] frame/visual acuity was 20/50, marked PAL and they were sitting were they needed to be, I gave a patient a pantoscopic tilt and added +0.25 and patient was happy with that. Informed patient that Dr. Pabon already approved for him to get that change if that was what was needed. will order today and informed patient he will get them in about 2-3 weeks in the mail and recommended him scheduling a fittings appt. Patient needs Pantoscopic tilt as that is what he is to and see better to read. Will forward message to provider as FYI of outcome. Patient also left both pairs with me to discard as they are not useful for him. /es/ [facility] TECHINICIAN Signed: 03/27/2024 12:34 Receipt Acknowledged By: 03/27/2024 12:45 /janine/ KAIDEN PABON OD STAFF OFFICE SERVICES SPECIALIST ZEV FERREIRA [place] [facility]
--- OUTSIDE RECORDS SUMMARY | 2024-06-03 09:04 | XMS_ITS ---
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 Date/Time Encounter Type Encounter Description Reason Pro vider Source Feb 12, 2024 12:00 AM Outpatient Encounter COMMUNITY CARE CONSULT [facility] Encounter Template Text not used by [facility] Plan of Treatment: Future Appointments (+ 6 months) and Future Tests (+/- 45 days) The Plan of Treatment section includes future care activities for the patient from all [place] [facility] This section includes future appointments and future orders which are active, pending or scheduled. Future Appointments This section includes appointments that were scheduled to occur 6 months from the date of the Encounter, up to a maximum of 20 appointments. The data comes from all [facility]. Appointment Date/Time Appointment Type Appointme nt Facility Name Feb 19, 2024 08:30 AM [place] [facility] [place] [facility] Feb 21, 2024 08:40 AM [place] [facility] [place] [facility] Mar 01, 2024 10:30 AM [place]ORY - [place]IC[place] [facility] Mar 12, 2024 09:00 AM [place] [facility] [place] [facility] Mar 14, 2024 02:00 PM [place] [facility] [place] [facility] Mar 25, 2024 08:00 AM [place] [facility] [place] [facility] Mar 27, 2024 11:20 AM [place] [facility] [place] [place] [facility] May 03, 2024 10:00 AM AMBULATORY - [place]IC[place] [facility] May 10, 2024 08:30 AM AMBULATORY - PSYCHIATRY [facility] Jul 11, 2024 10:30 AM AMBULATORY - NONE [place] [facility] [place] [place] [facility] Aug 02, 2024 10:00 AM AMBULATORY - MEDICINE [facility] [place] [facility] Aug 09, 2024 09:00 AM AMBULATORY - PSYCHIATRY [facility] Active, Pending, and Scheduled Orders This section includes a listing of several types of active, pending, and scheduled orders, including clinic medications orders, diagnostic test orders, procedure orders and consult orders; where the start date of the order is 45 days before the date of the Encounter or 45 days after the date of theEncounter. The data comes from all [facility]. Test Date/Time Test Type Test Details Facility Name Mar 15, 2024 01:18 PM Consult Order [facility] Cons Medication Specialist's Choice [place] [facility] [place] [facility] Mar 25, 2024 12:57 PM Consult Order [facility] Cons Medication Specialist's Choice [facility] Lab Results: +/- 30 days of the encounter This section includes the Chemistry and Hematology Lab Results on record with [place] for the patient. Radiology Reports and Pathology Reports are provided separately, in subsequent sections. Lab Results This section contains the Chemistry/Hematology Results that were resulted 30 days before or 30 daysafter the date of the Encounter. Date/Time Source Result Type Result - Unit Interpretation Reference Range Comment Mar 12, 2024 09:50 AM [facility] LIPID PANEL, NON FASTING Specimen Type: SERUM No comment entered. Ordering Provider: ARIEL JIMENEZ Report Released Date/Time: Feb 23, 2024 09:53 AM Reporting Lab: [address] [id number] Performing Lab: [address] [address] CHOLESTEROL 130 mg/dL TRIGLYCERIDE 89 mg/dL 0-150 LDL calculated 57 mg/dL 0-129 CHOL/HDL 2.4 HDL CHOLESTEROL 55 mg/dL 40-60 Mar 12, 2024 09:50 AM [facility] BASIC METABOLIC PANEL (non-fasting) Specimen Type: SERUM No comment entered. Ordering Provider: ARIEL JIMENEZ Report Released Date/Time: Feb 23, 2024 09:53 AM Reporting Lab: [address] [address] Performing Lab: [address] [address] UREA NITROGEN 26 mg/dL H 7-25 GLUCOSE 136 mg/dL H 65-100 SODIUM 141 mmol/L 135-145 POTASSIUM 4.7 mmol/L 3.5-5.0 CHLORIDE 104 mmol/L 100-110 CO2 27 meq/L 20-30 CREATININE, Serum 0.86 mg/dL 0.50-1.40 eGFR(CKD-EPI 2020) >90 mL/min >60 Mar 12, 2024 09:50 AM [facility] PT & INR (PROTIME) Specimen Type: PLASMA No comment entered. Ordering Provider: ARIEL JIMENEZ Report Released Date/Time: Feb 23, 2024 11:30 AM Reporting Lab: [facility] [address] [phone] Performing Lab: [facility] [address] [phone] INR 0.9 PROTIME 10.7 s 10.0-13.1 Mar 12, 2024 09:50 AM [facility] CBC Specimen Type: BLOOD No comment entered. Ordering Provider: ARIEL JIMENEZ Report Released Date/Time: Feb 23, 2024 11:30 AM Reporting Lab: [facility] [address] [phone] Performing Lab: [facility] [address] [phone] WBC 4.94 10*3/uL 4.50-11.00 RBC 4.72 10*6/uL [...] and tobacco- related health factors from the [place] facility where the Encounter took place. Current Smoking Status This section includes the most current smoking, or tobacco-related health factor, from the [place] facility where the Encounter took place. Date/Time Current Smoking Status Comment Rosendo ity Jun 22, 2023 09:00 AM VA-TOBACCO USER SOME DAYS [facility] Tobacco Use History This section includes a history of the smoking, or tobacco-related health factors, that were collected on or before the date of the Encounter. The data comes from the [place] facility where the Encounter took place. Date/Time Smoking Status/Tobacco Use Comment F acility Jun 22, 2023 09:00 AM VA-TOBACCO USE 30 YEARS OR MORE [facility] Jun 22, 2023 09:00 AM [facility] Jun 22, 2023 09:00 AM [facility]-TOBACCO USE [facility] Jun 22, 2023 09:00 AM [facility]BACCO USE [facility] Jun 22, 2023 09:00 AM VA-TOBACCO USER SOME DAYS [facility] Jan 13, 2022 02:00 PM [facility]BACCO NEVER USED [facility] Jul 06, 2009 03:46 PM QUIT TOBACCO USE > 7 YEARS AGO [facility] Advance Directives: All historical and current Section Date Range: From patient's date of to the date document was created. This section includes ALL of a patient's completed or amended [place] Advance and Rescinded Directives. The entries below indicate that a directive exists for the patient, but an actual copy is not included with this document. The data comes from all [place] facilities. Date Advance Directives Provider Source Jun 29, 2023 ADVANCE DIRECTIVE JAMES GALLO [facility] Sep 19, 2017 ADVANCE DIRECTIVE DINA [facility]CGINNIS [facility] Encounter Notes: All associated encounter notes This section contains the clinical notes associated to the Encounter. Date/Time Encounter Note(s) Provider Source Feb 12, 2024 12:00 AM NONVA CONSULT: LOCAL TITLE: COMMUNITY CARE-CONSULT RESULT NOTE STANDARD TITLE: NONVA CONSULT DATE OF NOTE: FEB 12, 2024 ENTRY DATE: FEB 28, 2024@09:59:58 AUTHOR: ISADORA BEAR EXP COSIGNER: URGENCY: STATUS: COMPLETED VistA Imaging - Scanned Document SCANNED DOCUMENT SIGNATURE NOT REQUIRED Electronically Filed: 02/28/2024 by: ISADORA SHEPARD [facility]
--- OUTSIDE RECORDS SUMMARY | 2024-06-03 09:04 | XMS_ITS ---
Author Name [facility] [place] Organization [facility] [place] Address [address] [place] [address] Care Team Providers Care Mix Technician Name Role Phone ARIEL JIMNEEZ Primary Care Provider Unavailabbe patel Insurance Providers: [...] Parra's Name Patient's Relationship to Policy Parra [facility] Dec 19, 2015 [id number] [phone] [employer]NA [employer] PATIENT [facility] Dec 19, 2015 [id number] [employer]AKESHA NGO PATIENT [facility] May 29, 2012 [id number] [employer] PATIENT Selected Encounter This section includes the information on record at [place] for the Encounter. Date/Time Encounter Type Encounter Description Reason Provider Source Mar 14, 2024 02:00 PM OFFICE O/P EST MOD 30 MIN PRIMARY CARE/MEDICINE ICD-10-CM E11.40 Type 2 diabetes mellitus with diabetic neuropathy, unsp FURCOLO,ARIEL IHE Encounter Template Text not used by [place] Assessments - Encounter Diagnoses This section includes the primary and secondary diagnoses documented for the Encounter. Date/Time Primary/Secondary Diagnosis Diagnosis Name Provider Source Mar 15, 2024 08:09 AM PRIMARY Type 2 diabetes mellitus with diabetic neuropathy, unsp FURCOLO,ARIEL [facility] Mar 15, 2024 08:09 AM SECONDARY Pain in right knee FURCOLO,ARIEL [facility] Plan of Treatment: Future Appointments (+ 6 months) and Future Tests (+/- 45 days) The Plan of Treatment section includes [facility] care [facility] the [facility] [place] [facility]. This section includes future appointments and [...] 25, 2024 08:00 AM [facility] Mar 27, 2024 11:20 AM [facility] May 03, 2024 10:00 AM AMBULATORY - MEDICINE [facility] May 10, 2024 08:30 AM AMBULATORY - PSYCHIATRY [facility] Jul 11, 2024 10:30 AM AMBULATORY - NONE [facility] Aug 02, 2024 10:00 AM AMBUL[facility]ORY - MEDICINE [facility] Aug 09, 2024 09:00 AM AMBULATORY - PSYCHIATRY [facility] Active, Pending, and Scheduled Orders This section includes a listing of several types of active, pending, and scheduled orders, including clinic medications orders, diagnostic test orders, procedure orders and consult orders; where the start date of the order is 45 days before the date of the Encounter or 45 days after the date of theEncounter. The data comes from all [facility]. Test Date/Time Test Type Test Details Facility Name Mar 15, 2024 01:18 PM Consult Order COMMUNITY CARE-COLONOSCOPY SURVEILLANCE Cons Housing Inspectors's Choice [facility] Mar 25, 2024 12:57 PM Consult Order MEDICINE [facility] HOME CARE Cons Housing Inspectors's Choice [facility] Lab Results: +/- 30 days of [...] Range Comment Mar 14, 2024 02:51 PM [facility] CBC AND DIFF (AUTO) Specimen Type: BLOOD No comment entered. Ordering Provider: ARIEL JIMENEZ Report Released Date/Time: Mar 14, 2024 02:13 PM Reporting Lab: [facility] [address] [address] Performing Lab: [facility] [address] [address] WBC 6.17 10*3/uL 4.50-11.00 RBC 5.01 10*6/uL [...] 10*3/uL 0.00-0.00 Mar 14, 2024 02:50 PM [facility] HEMOGLOBIN A1C PANEL Specimen Type: BLOOD [...] September 27, 2023 10:28 AM Reporting Lab: [address] [address] Performing Lab: [address] [address] HEMOGLOBIN A1C 5.7 H 4.0-5.6 Mar 12, 2024 09:50 AM [facility] PT & INR (PROTIME) Specimen Type: PLASMA No comment entered. Ordering Provider: ARIEL JIMENEZ Report Released Date/Time: Feb 23, 2024 11:30 AM Reporting Lab: [address] [address] Performing Lab: [address] [address] INR 0.9 PROTIME 10.7 s 10.0-13.1 Mar 12, 2024 09:50 AM [facility] LIPID PANEL, NON FASTING Specimen Type: SERUM No comment entered. Ordering Provider: ARIEL JIMENEZ Report Released Date/Time: Feb 23, 2024 09:53 AM Reporting Lab: [address] [address] Performing Lab: [address] [address] CHOLESTEROL 130 mg/dL TRIGLYCERIDE 89 mg/dL 0-150 LDL calculated 57 mg/dL 0-129 CHOL/HDL 2.4 HDL CHOLESTEROL 55 mg/dL 40-60 Mar 12, 2024 09:50 AM [facility] BASIC METABOLIC PANEL (non-fasting) Specimen Type: SERUM No comment entered. Ordering Provider: ARIEL JIMENEZ Report Released Date/Time: Feb 23, 2024 09:53 AM Reporting Lab: [facility] [address] [address] Performing Lab: [address] [address] UREA NITROGEN 26 mg/dL H 7-25 GLUCOSE 136 mg/dL H 65-100 SODIUM 141 mmol/L 135-145 POTASSIUM 4.7 mmol/L 3.5-5.0 CHLORIDE 104 mmol/L 100-110 CO2 27 meq/L 20-30 CREATININE, Serum 0.86 mg/dL 0.50-1.40 eGFR(CKD-EPI 2020) >90 mL/min >60 Mar 12, 2024 09:50 AM [facility] CBC Specimen Type: BLOOD No comment entered. Ordering Provider: ARIEL JIMENEZ Report Released Date/Time: Feb 23, 2024 11:30 AM Reporting Lab: [facility] [address] [address] Performing Lab: [address] [address] WBC 4.94 10*3/uL 4.50-11.00 RBC 4.72 10*6/uL [...] 95 117/74 16 95 5 220 28 [place] [facility] [place] [facility] Social History: Smoking Status (Most current) [...] AM VA-TOBACCO USE 30 YEARS OR MORE [facility] Tobacco Use History This section includes a history of the smoking, or tobacco-related health factors, that were collected on or before the date of the Encounter. The data comes from the [place] facility where the Encounter took place. 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 [place] [facility] [facility] Jun 22, 2023 09:00 AM VA-TOBACCO USE MED NO [place] [facility] [place] [facility] Jun 22, 2023 09:00 AM VA-TOBACCO USER SOME DAYS [place] [facility] [place] [facility] Jan 13, 2022 02:00 PM VA-TOBACCO NEVER USED [place] [facility] [place] [facility] Jul 06, 2009 03:46 PM QUIT TOBACCO USE > 7 YEARS AGO [facility] Advance Directives: All historical and current Section [...] Jun 29, 2023 ADVANCE DIRECTIVE JAMES GALLO [place] [facility] [place] [facility] Sep 19, 2017 ADVANCE DIRECTIVE DINA MCGINNIS [facility] Encounter Notes: All associated encounter notes This section contains the clinical notes associated to the Encounter. Date/Time Encounter Note(s) Provider Source Mar 15, 2024 08:09 AM ADDENDUM: LOCAL TITLE: Addendum STANDARD TITLE: ADDENDUM DATE OF NOTE: MAR 15, 2024@08:09:33 ENTRY DATE: MAR 15, 2024@08:09:33 AUTHOR: ARIEL JIMENEZ COSIGNER: URGENCY: STATUS: COMPLETED please fax encounter and EKG to neida Fritz . thanks /es/ ARIEL JIMENEZ D.O. PHYSICIAN Signed: 03/15/2024 08:09 Receipt Acknowledged By: 03/18/2024 08:40 /es/ PRADEEP MONTEMAYOR --- Original Document --- 03/14/24 NOTE: LAKESHA SQUIRES JR is a 57 year old WHITE MALE who is being seen today in primary care for pre-op clearance for right knee replacement surgery with DR. Constantine Fritz on 04/10/24. CARE TEAM Community Primary Care Provider: none [facility] Specialists: ENT [facility]- DR. Brooks optometry audiology Community Specialists: ENT Dr Walter Kulkarni in [place] sleep clinic [facility] - prn s/p DISE ortho Andrew Fritz HISTORY PERIOD OF SERVICE - [place] % - 80 SC Percent: 80% Rated Disabilities: 2ND DEGREE YAÑEZ (0%-SC) MOOD DISORDER (50%-SC) LIMITED EXTENSION OF KNEE (20%-SC) LUMBOSACRAL OR CERVICAL STRAIN (10%-SC) LIMITED EXTENSION OF KNEE (40%-SC) IMPAIRED HEARING (0%-SC) TINNITUS (10%-SC) [place], carrier for 1.5 yrs, then [employer], watch over security, [phone], then [employer]. HISTORY OF PRESENT ILLNESS here for pre-op clearance for right knee replacement surgery with DR. Constantine Fritz on 04/10/24. No recent illness, no cough or shortness of breath, able to do all ADLs, walks daily, doing knee exercises regularly. RELEVANT PAST MEDICAL HISTORY Active problems - Computerized Problem List is the source for the followin. Diabetes mellitus with neuropathy 2. Lumbar radiculopathy 3. Obstructive sleep apnea syndrome 4. Adjustment disorder with anxious mood reviewed reviewed 5. Essential hypertension 6. Colonoscopy normal in 2013; was told normal; 7. Hyperlipidemia 8. Pain of right knee joint (SNOMED CT 226512178119131) 9. Diabetes mellitus type 2 without retinopathy (SNOMED CT 6496956820438) 10. Asthma 11. Hearing loss 12. 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 Alcohol Use: weekends/special occasions 2-3x/week, never problematic Tobacco Use: never smoked cigarettes, occ cigar (monthly) Drug Use: THC gummies Exercise: e-bikes, walking 3-4 times a week, stacking firewood ALLERGIES Patient has answered NKA MEDICATIONS Active and Recently Outpatient Medications (excluding Supplies): [...] ONCE DAILY ACTIVE NEEDED 12 Total Medications REVIEW OF SYMPTOMS POSITIVE FOR: [...] - - - - - - B/P: 117/74 (03/14/2024 13:57) pulse: 95 (03/14/2024 13:57) resp: 16 (03/14/2024 13:57) temp: 97.9 F [36.6 C] (03/14/2024 13:57) Ht: 75 in [190.5 cm] (06/29/2023 12:54) Wgt: 220 lb [99.79 kg] (03/14/2024 13:57) BMI: BMI: 27.6 Exam: - - - - - - - General: A&O x 3, no acute distress, normal affect and mood Neck: normal thyroid, normal carotids- no bruits CV: RRR S1S2, no murmur Resp: LCTA bilat, no wheezing, rales or rhonchi Neuro: grossly intact, no visible tremor, normal memory and speech Extremities: normal movement of extremities, normal gait, normal strength no LE edema RECENT LABS EKG: NSR, no ST-T chnages Your recent test results are as follows: Collection DT Specimen Test Name Result Units Ref Range 03/14/2024 14:51 BLOOD WBC 6.17 K/cmm 4.50 - 11.00 RBC 5.01 M/cmm 4.23 - 5.66 HGB 16.0 g/dL 12.8 - 17 HCT 45.8 % 39.2 - 50.4 MCV 91.4 fl 82 - 99 MCH 31.9 pg 26.2 - 32.6 MCHC 34.9 g/dL 30.8 - 35.1 RDW-CV 12.7 % 12.0 - 16.0 PLT 193 K/cmm 140 - 360 NEUT % 73.5 % 43.7 - 75.8 LYMPH % 13.9 L % 14.0 - 42.3 MONO % 10.2 % 5.1 - 13.7 EOS % 1.9 % 0.4 - 6.8 BASO % 0.3 % 0.1 - 2.0 IMMATURE GRAN % 0.2 % 0.0 - 0.7 NRBC % 0.0 % 0.0 - 0.0 NEUT, ABS 4.53 K/cmm 2.20 - 7.60 LYMPH, ABS 0.86 L K/cmm 1.00 - 3.20 MONO, ABS 0.63 K/cmm 0.30 - 1.10 EOS, ABS 0.12 K/cmm 0.03 - 0.44 BASO, ABS 0.02 K/cmm 0.01 - 0.13 IMMATURE GRAN, AB 0.01 K/cmm 0.00 - 0.06 NRBC, ABS 0.00 K/cmm 0.00 - 0.00 03/14/2024 14:50 BLOOD !! HEMOGLOBIN A1C 5.7 H % 4.0 - 5.6 03/12/2024 09:50 PLASMA PROTIME 10.7 sec 10.0 - 13.1 INR 0.9 03/12/2024 09:50 SERUM CREATININE, Serum 0.86 mg/dL 0.50 - 1.40 eGFR(CKD-EPI 2020 >90 mL/min Ref: >=60 SODIUM 141 mmol/L 135 - 145 POTASSIUM 4.7 mmol/L 3.5 - 5.0 CHLORIDE 104 mmol/L 100 - 110 CO2 27 mEq/L 20 - 30 UREA NITROGEN 26 H mg/dL 7 - 25 GLUCOSE 136 H mg/dL 65 - 100 CHOLESTEROL 130 mg/dL <7 - 199 TRIGLYCERIDE 89 mg/dL 0 - 150 LDL calculated 57 mg/dL 0 - 129 CHOL/HDL 2.4 HDL CHOLESTEROL 55 mg/dL 40 - 60 ASSESSMENT AND PLAN Active problems - Computerized Problem List is the source for the following: Knee pain (SNOMED CT [id number])- medically optimized for right knee replacement surgery with DR. Constantine Fritz on 04/10/24. Low risk for cardiac and pulmonary complications in the babak-operative period. Normal EKG. Normal labs. Recommend holding aspirin and ozempic for 7 days prior to surgery. Hold metformin, HCTZ and empagliflozin for 3 days prior to surgery Diabetes mellitus with neuropathy- great control currently. weaned off of insulin. on semaglutide and empagliflozin. has lost 20 lbs HEALTH MAINTENANCE Colonoscopy - due Abdominal Aortic [...] spent in direct patient care, review of /janine/ ARIEL JIMENEZ D.O. PHYSICIAN Signed: 03/15/2024 08:09 ARIEL JIMENEZ [facility] [place] [facility] Mar 14, 2024 02:20 PM PHYSICIAN NOTE: LOCAL TITLE: NOTE STANDARD TITLE: PHYSICIAN NOTE DATE OF NOTE: MAR 14, 2024@14:20 ENTRY DATE: MAR 14, 2024@14:20:39 AUTHOR: ARIEL JIMENEZ EXP COSIGNER: URGENCY: STATUS: COMPLETED NOTE Has ADDENDA LAKESHA SQUIRES JR is a 57 year old WHITE MALE who is being seen today in primary care for pre-op clearance for right knee replacement surgery with DR. Constantine Fritz on 04/10/24. CARE TEAM Community Primary Care Provider: none [place] Specialists: ENT [facility]- DR. Brooks optometry audiology Community Specialists: ENT Dr Walter Kulkarni in [facility] sleep clinic [facility] - prn s/p DISE ortho [place] Constantine Fritz HISTORY PERIOD OF SERVICE - [place] [employer] CONNECT[place] % - 80 SC Percent: 80% Rated Disabilities: 2ND DEGREE YAÑEZ (0%-SC) MOOD DISORDER (50%-SC) LIMITED EXTENSION OF KNEE (20%-SC) LUMBOSACRAL OR CERVICAL STRAIN (10%-SC) LIMITED EXTENSION OF KNEE (40%-SC) IMPAIRED HEARING (0%-SC) TINNITUS (10%-SC) [place], carrier for 1.5 yrs, then [employer], watch over security, [phone], then [employer]. [employer]. HISTORY OF PRESENT ILLNESS here for pre-op clearance for right knee replacement surgery with DR. Constantine Fritz on 04/10/24. No recent illness, no cough or shortness of breath, able to do all ADLs, walks daily, doing knee exercises regularly. RELEVANT PAST MEDICAL HISTORY Active problems - Computerized Problem List is the source for the followin. Diabetes mellitus with neuropathy 2. Lumbar radiculopathy 3. Obstructive sleep apnea syndrome 4. Adjustment disorder with anxious mood reviewed reviewed 5. Essential hypertension 6. Colonoscopy normal in 2013; was told normal; 7. Hyperlipidemia 8. Pain of right knee joint (SNOMED CT [id number]) 9. Diabetes mellitus type 2 without retinopathy (SNOMED CT 1752228491093) 10. Asthma 11. Hearing loss 12. 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 Alcohol Use: weekends/special occasions 2-3x/week, never problematic Tobacco Use: never smoked cigarettes, occ cigar (monthly) Drug Use: THC gummies Exercise: e-bikes, walking 3-4 times a week, stacking firewood ALLERGIES Patient has answered NKA MEDICATIONS Active and Recently Outpatient Medications (excluding Supplies): [...] ONCE DAILY ACTIVE NEEDED 12 Total Medications REVIEW OF SYMPTOMS POSITIVE FOR: [...] - - - - - - B/P: 117/74 (03/14/2024 13:57) pulse: 95 (03/14/2024 13:57) resp: 16 (03/14/2024 13:57) temp: 97.9 F [36.6 C] (03/14/2024 13:57) Ht: 75 in [190.5 cm] (06/29/2023 12:54) Wgt: 220 lb [99.79 kg] (03/14/2024 13:57) BMI: BMI: 27.6 Exam: - - - - - - - General: A&O x 3, no acute distress, normal affect and mood Neck: normal thyroid, normal carotids- no bruits CV: RRR S1S2, no murmur Resp: LCTA bilat, no wheezing, rales or rhonchi Neuro: grossly intact, no visible tremor, normal memory and speech Extremities: normal movement of extremities, normal gait, normal strength no LE edema RECENT LABS EKG: NSR, no ST-T chnages Your recent test results are as follows: Collection DT Specimen Test Name Result Units Ref Range 03/14/2024 14:51 BLOOD WBC 6.17 K/cmm 4.50 - 11.00 RBC 5.01 M/cmm 4.23 - 5.66 HGB 16.0 g/dL 12.8 - 17 HCT 45.8 % 39.2 - 50.4 MCV 91.4 fl 82 - 99 MCH 31.9 pg 26.2 - 32.6 MCHC 34.9 g/dL 30.8 - 35.1 RDW-CV 12.7 % 12.0 - 16.0 PLT 193 K/cmm 140 - 360 NEUT % 73.5 % 43.7 - 75.8 LYMPH % 13.9 L % 14.0 - 42.3 MONO % 10.2 % 5.1 - 13.7 EOS % 1.9 % 0.4 - 6.8 BASO % 0.3 % 0.1 - 2.0 IMMATURE GRAN % 0.2 % 0.0 - 0.7 NRBC % 0.0 % 0.0 - 0.0 NEUT, ABS 4.53 K/cmm 2.20 - 7.60 LYMPH, ABS 0.86 L K/cmm 1.00 - 3.20 MONO, ABS 0.63 K/cmm 0.30 - 1.10 EOS, ABS 0.12 K/cmm 0.03 - 0.44 BASO, ABS 0.02 K/cmm 0.01 - 0.13 IMMATURE GRAN, AB 0.01 K/cmm 0.00 - 0.06 NRBC, ABS 0.00 K/cmm 0.00 - 0.00 03/14/2024 14:50 BLOOD !! HEMOGLOBIN A1C 5.7 H % 4.0 - 5.6 03/12/2024 09:50 PLASMA PROTIME 10.7 sec 10.0 - 13.1 INR 0.9 03/12/2024 09:50 SERUM CREATININE, Serum 0.86 mg/dL 0.50 - 1.40 eGFR(CKD-EPI 2020 >90 mL/min Ref: >=60 SODIUM 141 mmol/L 135 - 145 POTASSIUM 4.7 mmol/L 3.5 - 5.0 CHLORIDE 104 mmol/L 100 - 110 CO2 27 mEq/L 20 - 30 UREA NITROGEN 26 H mg/dL 7 - 25 GLUCOSE 136 H mg/dL 65 - 100 CHOLESTEROL 130 mg/dL <7 - 199 TRIGLYCERIDE 89 mg/dL 0 - 150 LDL calculated 57 mg/dL 0 - 129 CHOL/HDL 2.4 HDL CHOLESTEROL 55 mg/dL 40 - 60 ASSESSMENT AND PLAN Active problems - Computerized Problem List is the source for the following: Knee pain (SNOMED CT 48168786)- medically optimized for right knee replacement surgery with DR. Constantine Fritz on 04/10/24. Low risk for cardiac and pulmonary complications in the babak-operative period. Normal EKG. Normal labs. Recommend holding aspirin and ozempic for 7 days prior to surgery. Hold metformin, HCTZ and empagliflozin for 3 days prior to surgery Diabetes mellitus with neuropathy- great control currently. weaned off of insulin. on semaglutide and empagliflozin. has lost 20 lbs HEALTH MAINTENANCE Colonoscopy - due Abdominal Aortic [...] spent in direct patient care, review of /jeff JIMENEZ D.O. PHYSICIAN Signed: 03/15/2024 08:09 03/15/2024 ADDENDUM STATUS: COMPLETED please fax encounter and EKG to ortho Andrew Fritz . thanks /janine/ ARIEL JIMENEZ D.O. PHYSICIAN Signed: 03/15/2024 08:09 Receipt Acknowledged By: * AWAITING SIGNATURE * PRADEEP GALVEZ [facility] Mar 14, 2024 12:47 PM PREVENTIVE MEDICINE NURSING NOTE: LOCAL TITLE: CLINICAL REMINDERS/NURSING STANDARD TITLE: PREVENTIVE MEDICINE NURSING NOTE DATE OF NOTE: MAR 14, 2024@12:47 ENTRY DATE: MAR 15, 2024@12:47:11 AUTHOR: JAXSON HARDEN EXP COSIGNER: URGENCY: STATUS: COMPLETED Follow Up Colonoscopy: Colonoscopy is due based on information available to this reminder. Colonoscopy consult has been ordered. See orders tab for details. /jeff HARDEN LPN License Practical Nurse Signed: 03/15/2024 12:50 JAXSON HARDEN [facility] Mar 14, 2024 12:39 PM CARDIOLOGY DIAGNOSTIC STUDY CONSULT: LOCAL TITLE: CONSULT REPORT/EKG STANDARD TITLE: CARDIOLOGY DIAGNOSTIC STUDY CONSULT DATE OF NOTE: MAR 14, 2024@12:39 ENTRY DATE: MAR 15, 2024@12:39:31 AUTHOR: JAXSON HARDEN EXP COSIGNER: URGENCY: STATUS: COMPLETED EKG tracing was performed for diagnosis of pre op clearance ordered by Dr. Jimenez. /jeff HARDEN LPN License Practical Nurse Signed: 03/15/2024 12:39 [facility]AXSON HARDEN [facility]
--- OUTSIDE RECORDS SUMMARY | 2024-06-03 09:05 | XMS_ITS | Encounter Summary ---
Author Name [facility] [place] Address [address] [place] [address] Care Team Providers Care Automatic Mounter Name Role Phone ARIEL JIMENEZ Primary Care [...] Parra's Name Patient's Relationship to Policy Parra [facility] Dec 19, 2015 [id number] TANA NGO PATIENT [facility] Dec 19, 2015 [id number] [phone] LAKESHA NGO PATIENT [facility] May 29, 2012 [id number] [phone] TANA NGO PATIENT Selected Encounter This section includes the information on record at [place] for the Encounter. Date/Time Encounter Type Encounter Description Reason Provider Source Apr 22, 2024 03:42 PM Outpatient Encounter PRIMARY CARE/MEDICINE JAXSON HARDEN Encounter Template Text not used by [place] Plan of Treatment: Future Appointments (+ 6 months) and Future Tests (+/- 45 days) The Plan of Treatment section includes future care activities for the patient from all [place] [facility] This section includes future appointments [...] 03, 2024 10:00 AM AMBULATORY - MEDICINE [facility] May 10, 2024 08:30 AM AMBULATORY - PSYCHIATRY [facility] Jul 11, 2024 10:30 AM AMBULATORY - NONE [facility] Aug 02, 2024 10:00 AM AMBULATORY - MEDICINE [facility] Aug 09, 2024 09:00 AM AMBULATORY - PSYCHIATRY [facility] Active, Pending, and Scheduled Orders This section includes a listing of several types of active, pending, and scheduled orders, including clinic medications orders, diagnostic test orders, procedure orders and consult orders; where the start date of the order is 45 days before the date of the Encounter or 45 days after the date of theEncounter. The data comes from all [place] treatment [facility]. Test Date/Time Test Type Test Details Facility Name Mar 15, 2024 01:18 PM Consult Order COMMUNITY CARE-COLONOSCOPY SURVEILLANCE [facility] Child Welfare Director's Choice [facility] Mar 25, 2024 12:57 PM Consult Order COMMUNITY CARE-GEC SKILLED HOME CARE Cons Child Welfare Director's Choice [facility] Social History: Smoking Status (Most current) [...] 2023 09:00 AM VA-TOBACCO USER SOME DAYS [facility] Tobacco Use History This section includes a history of the smoking, or tobacco-related health factors, that were collected on or before the date of the Encounter. The data comes from the [place] facility where the Encounter took place. Date/Time Smoking Status/Tobacco Use Comment F acility Jun 22, 2023 09:00 AM VA-TOBACCO USE 30 YEARS OR MORE [facility] Jun 22, 2023 09:00 AM VA-TOBACCO USE ADVICE [facility] Jun 22, 2023 09:00 AM VA-TOBACCO USE SCIENCE LIAISON NO [facility] Jun 22, 2023 09:00 AM VA-TOBACCO USE MED NO [facility] Jun 22, 2023 09:00 AM VA-TOBACCO USER SOME DAYS [facility] Jan 13, 2022 02:00 PM VA-TOBACCO NEVER USED [facility] Jul 06, 2009 03:46 PM QUIT TOBACCO USE > 7 YEARS AGO [facility] Advance Directives: All historical and current [...] Jun 29, 2023 ADVANCE DIRECTIVE JAMES GALLO [facility] Sep 19, 2017 ADVANCE DIRECTIVE DINA MCGINNIS [facility] Encounter Notes: All associated encounter notes This section contains the clinical notes associated to the Encounter. Date/Time Encounter Note(s) Provider Source Apr 22, 2024 03:42 PM PRIMARY CARE SECUR E MESSAGING: LOCAL TITLE: PRIMARY CARE SECURE MESSAGING STANDARD TITLE: PRIMARY CARE SECURE MESSAGING DATE OF NOTE: APR 22, 2024@15:42 ENTRY DATE: APR 22, 2024@15:42:47 AUTHOR: JAXSON HARDEN EXP COSIGNER: URGENCY: STATUS: COMPLETED ------Original Message ----- Sent: 04/19/2024 01:08 PM ET From: LAKESHA SQUIRES To: Alex JIMENEZ _ PRIMARY CARE_[facility] Subject: Medication:Reimbursements Good afternoon, recovery from the knee surgery is going okay. I was prescribed several things last week, post surgery. I asked for additional pain meds and they are calling them into [facility] today as well. We will melgoza pay those as well. How do I get reimbursed? Thank you, Vijay ------Original Message ----- Sent: 04/22/2024 03:42 PM ET From: JAXSON HARDEN To: LAKESHA SQUIRES Subject: Medication:Reimbursements Good morning There is a form for Reimbursement of non VA prescriptions or medical expenses. You can come in to customer care suite in the basement or you can find it on line and print it out. It will give you directions how to fill it out and where to sent it. I do believe it's time sensitive. You can also call billing department and they probably could give you more information, number# [phone]. If you have an outside script and we have place a referral for that provider, scripts should be faxed to our pharmacy, fax #[phone] also if you have any scripts for braces, adaptive equipment post surgery we would have prosthetics fill those scripts/adaptive equipment. Hope this helps. Dinah Primary CAre // JAXSON HARDEN LPN License Practical Nurse Signed: 04/22/2024 15:42 JAXSON HARDEN [place] [facility]
--- OUTSIDE RECORDS SUMMARY | 2024-06-03 09:05 | XMS_ITS | Encounter Summary ---
Author Name [place] Address [address] [place] [address] Care Team Providers Care Computer Systems Software Engineer Name Role Phone ARIEL JIMENEZ Primary Care [...] Parra [facility] Dec 19, 2015 [id number] [phone] TANA NGO PATIENT [facility] Dec 19, 2015 [id number] LAKESHA NGO PATIENT [facility] May 29, 2012 [id number] TANA NGO PATIENT Selected Encounter This section includes the information on record at [place] for the Encounter. Date/Time Encounter Type Encounter Description Reason Pro vider Source Apr 10, 2024 12:00 AM Outpatient Encounter COMMUNITY CARE CONSULT IHE Encounter Template Text not used by [place] Plan of Treatment: Future Appointments (+ 6 months) and Future Tests (+/- 45 days) The Plan of Treatment section includes future care activities for the patient from all [place] [facility] This section includes future appointments and future orders which are active, pending or scheduled. Future Appointments This section includes appointments that were scheduled to occur 6 months from the date of the Encounter, up to a maximum of 20 appointments. The data comes from all [place] treatment facilities. Appointment Date/Time Appointment Type Appointme nt Facility Name May 03, 2024 10:00 AM AMBULATORY - MEDICINE [facility] May 10, 2024 08:30 AM AMBULATORY - PSYCHIATRY [facility] Jul 11, 2024 10:30 AM AMBULATORY - NONE [facility] Aug 02, 2024 10:00 AM AMBULATORY - MEDICINE [facility] Aug 09, 2024 09:00 AM AMBULATORY - PSYCHIATRY [facility] Active, Pending, and [...] of theEncounter. The data comes from all [place] treatment facilities. Test Date/Time Test Type Test Details Facility Name Mar 15, 2024 01:18 PM Consult Order COMMUNITY CARE-COLONOSCOPY SURVEILLANCE Cons Seafood Farmer's Choice [facility] Mar 25, 2024 12:57 PM Consult Order COMMUNITY CARE-GEC SKILLED HOME CARE Cons Seafood Farmer's Choice [facility] Lab Results: +/- 30 days of the encounter This section includes the Chemistry and Hematology Lab Results on record with [place] for the patient. Radiology Reports and Pathology Reports are provided separately, in subsequent sections. Lab Results This section contains the Chemistry/Hematology Results that were resulted 30 days before or 30 daysafter the date of the Encounter. Date/Time Source Result Type Result - Unit Interpretation Reference Range Comment Mar 14, 2024 02:51 PM [facility] CBC AND DIFF (AUTO) Specimen Type: BLOOD No comment entered. Ordering Provider: ARIEL JIMENEZ Report Released Date/Time: Mar 14, 2024 02:13 PM Reporting Lab: [facility] [address] [id number] Performing Lab: [facility] [address] [address] WBC 6.17 10*3/uL 4.50-11.00 RBC 5.01 10*6/uL [...] 10*3/uL 0.00-0.00 Mar 14, 2024 02:50 PM [facility] HEMOGLOBIN A1C PANEL Specimen Type: BLOOD [...] September 27, 2023 10:28 AM Reporting Lab: [facility] [address] [address] Performing Lab: [facility] [address] [address] HEMOGLOBIN A1C 5.7 H 4.0-5.6 Mar 12, 2024 09:50 AM [facility] PT & INR (PROTIME) Specimen Type: PLASMA No comment entered. Ordering Provider: ARIEL JIMENEZ Report Released Date/Time: Feb 23, 2024 11:30 AM Reporting Lab: [facility] [address] [address] Performing Lab: [facility] [address] [id number] INR 0.9 PROTIME 10.7 s 10.0-13.1 Mar 12, 2024 09:50 AM [facility] LIPID PANEL, NON FASTING Specimen Type: SERUM No comment entered. Ordering Provider: ARIEL JIMENEZ Report Released Date/Time: Feb 23, 2024 09:53 AM Reporting Lab: [facility] [address] [address] Performing Lab: [facility] [address] [address] CHOLESTEROL 130 mg/dL TRIGLYCERIDE 89 mg/dL 0-150 LDL calculated 57 mg/dL 0-129 CHOL/HDL 2.4 HDL CHOLESTEROL 55 mg/dL 40-60 Mar 12, 2024 09:50 AM [facility] BASIC METABOLIC PANEL (non-fasting) Specimen Type: SERUM No comment entered. Ordering Provider: ARIEL JIMENEZ Report Released Date/Time: Feb 23, 2024 09:53 AM Reporting Lab: [facility] [address] [address] Performing Lab: [address] [address] UREA NITROGEN 26 mg/dL H 7-25 GLUCOSE 136 mg/dL H 65-100 SODIUM 141 mmol/L 135-145 POTASSIUM 4.7 mmol/L 3.5-5.0 CHLORIDE 104 mmol/L 100-110 CO2 27 meq/L 20-30 CREATININE, Serum 0.86 mg/dL 0.50-1.40 eGFR(CKD-EPI 2020) >90 mL/min >60 Mar 12, 2024 09:50 AM [facility] CBC Specimen Type: BLOOD No comment entered. Ordering Provider: ARIEL JIMENEZ Report Released Date/Time: Feb 23, 2024 11:30 AM Reporting Lab: [facility] [address] [address] Performing Lab: [facility] [address] [address] WBC 4.94 10*3/uL 4.50-11.00 RBC 4.72 10*6/uL [...] and tobacco- related health factors from the [place] facility where the Encounter took place. Current Smoking Status This section includes the most current smoking, or tobacco-related health factor, from the [place] facility where the Encounter took place. Date/Time Current Smoking Status Comment Rosendo ity Jun 22, 2023 09:00 AM [place]-TOBACCO DOESNT USE WI 30 MIN WAKEUP [facility] Tobacco Use History This section includes a history of the smoking, or tobacco-related health factors, that were collected on or before the date of the Encounter. The data comes from the [place] facility where the Encounter took place. Date/Time Smoking Status/Tobacco Use Comment F acility Jun 22, 2023 09:00 AM [place]-TOBACCO USE 30 YEARS OR MORE [facility] Jun 22, 2023 09:00 AM VA-TOBACCO USE ADVICE [facility] Jun 22, 2023 09:00 AM VA-TOBACCO USE LEAK HUNTER NO [facility] Jun 22, 2023 09:00 AM VA-TOBACCO USE MED NO [facility] Jun 22, 2023 09:00 AM VA-TOBACCO USER SOME DAYS [facility] Jan 13, 2022 02:00 PM VA-TOBACCO NEVER USED [facility] Jul 06, 2009 03:46 PM QUIT TOBACCO USE > 7 YEARS AGO [facility] Advance Directives: All historical and current Section Date Range: From patient's date of to the date document was created. This section includes ALL of a patient's completed or amended [place] Advance and Rescinded Directives. The entries below indicate that a directive exists for the patient, but an actual copy is not included with this document. The data comes from all [place] facilities. Date Advance Directives Provider Source Jun 29, 2023 ADVANCE DIRECTIVE JAMES GALLO [facility] Sep 19, 2017 ADVANCE DIRECTIVE DINA MCGINNIS [facility] Encounter Notes: All associated encounter notes This section contains the clinical notes associated to the Encounter. Date/Time Encounter Note(s) Provider Source Apr 10, 2024 12:00 AM NONVA CONSULT: LOCAL TITLE: COMMUNITY CARE-CONSULT RESULT NOTE STANDARD TITLE: NONVA CONSULT DATE OF NOTE: APR 10, 2024 ENTRY DATE: APR 11, 2024@11:18:54 AUTHOR: NORI VIERA EXP COSIGNER: URGENCY: STATUS: COMPLETED VistA Imaging - Scanned Document SCANNED DOCUMENT SIGNATURE NOT REQUIRED Electronically Filed: 04/11/2024 by: NORI HUGHES [facility] Apr 10, 2024 12:00 AM NONVA CONSULT: LOCAL TITLE: COMMUNITY CARE-CONSULT RESULT NOTE STANDARD TITLE: NONVA CONSULT DATE OF NOTE: APR 10, 2024 ENTRY DATE: MAY 06, 2024@12:48:44 AUTHOR: MORE COOMBS EXP COSIGNER: URGENCY: STATUS: COMPLETED VistA Imaging - Scanned Document SCANNED DOCUMENT SIGNATURE NOT REQUIRED Electronically Filed: 05/06/2024 by: [address] CAR INSPECTOR MORE COOMBS [facility] [place] [facility] Apr 10, 2024 12:00 AM NONVA CONSULT: LOCAL TITLE: COMMUNITY CARE-CONSULT RESULT NOTE STANDARD TITLE: NONVA CONSULT DATE OF NOTE: APR 10, 2024 ENTRY DATE: MAY 07, 2024@08:08 AUTHOR: NORI VIERA EXP COSIGNER: URGENCY: STATUS: COMPLETED VistA Imaging - Scanned Document SCANNED DOCUMENT SIGNATURE NOT REQUIRED Electronically Filed: 05/07/2024 by: NORI HUGHES CNTRL W[facility]
--- OUTSIDE RECORDS SUMMARY | 2024-06-03 09:05 | XMS_ITS ---
Author Name [place] Address [address] [place] [address] Care Team Providers Care Radiology Specialist Name Role Phone ARIEL INFANTE Primary Care [...] Policy Parra [facility] Dec 19, 2015 [id number] [phone] TANA NGO PATIENT [facility] Dec 19, 2015 [id number] LAKESHA NGO PATIENT [facility] May 29, 2012 [id number] [phone] TANA NGO PATIENT Selected Encounter This section includes the information on record at [place] for the Encounter. Date/Time Encounter Type Encounter Description Reason Provider Source Apr 15, 2024 03:12 PM Outpatient Encounter PRIMARY CARE/MEDICINE YOGI DOMINGUEZ Encounter Template Text not used by [place] Plan of Treatment: Future Appointments (+ 6 months) and Future Tests (+/- 45 days) The Plan of Treatment section includes future care activities for the patient from all [place] [facility]. This section includes future appointments [...] AM AMBULATORY - MEDICINE [facility] May 10, 2024 08:30 AM AMBULATORY - PSYCHIATRY [facility] Jul 11, 2024 10:30 AM AMBULATORY - NONE [facility] Aug 02, 2024 10:00 AM AMBULATORY - MEDICINE [facility] Aug 09, 2024 09:00 AM AMBULATORY - PSYCHIATRY [facility] Active, Pending, and Scheduled Orders This section includes a listing of several types of active, pending, and scheduled orders, including clinic medications orders, diagnostic test orders, procedure orders and consult orders; where the start date of the order is 45 days before the date of the Encounter or 45 days after the date of theEncounter. The data comes from all [place] treatment [facility]. Test Date/Time Test Type Test Details Facility Name Mar 15, 2024 01:18 PM Consult Order COMMUNITY CARE-COLONOSCOPY SURVEILLANCE [facility] Trim Installer's Choice [facility] Mar 25, 2024 12:57 PM Consult Order COMMUNITY CARE-GEC SKILLED HOME CARE Cons Trim Installer's [facility] Social History: Smoking Status (Most current) and Tobacco Use (All prior to encounter date) This section includes the most current, and the historical, smoking and tobacco- related health factors from the [place] facility where the Encounter took place. Current Smoking Status This section includes the most current smoking, or tobacco-related health factor, from the [place] facility where the Encounter took place. Date/Time Current Smoking Status Comment Rosendo rubio Jun 22, 2023 09:00 AM VA-TOBACCO USER SOME DAYS [facility] Tobacco Use History This section includes a history of the smoking, or tobacco-related health factors, that were collected on or before the date of the Encounter. The data comes from the [place] facility where the Encounter took place. Date/Time Smoking Status/Tobacco Use Comment F acility Jun 22, 2023 09:00 AM VA-TOBACCO USE 30 YEARS OR MORE [facility] Jun 22, 2023 09:00 AM VA-TOBACCO USE ADVICE [facility] Jun 22, 2023 09:00 AM VA-TOBACCO USE FILTER OPERATOR NO [facility] Jun 22, 2023 09:00 AM VA-TOBACCO USE MED NO [facility] Jun 22, 2023 09:00 AM VA-TOBACCO USER SOME DAYS [facility] Jan 13, 2022 02:00 PM VA-TOBACCO NEVER USED [facility] Jul 06, 2009 03:46 PM QUIT TOBACCO USE > 7 YEARS AGO [facility] Advance Directives: All historical and current [...] Jun 29, 2023 ADVANCE DIRECTIVE JAMES GALLO [facility] Sep 19, 2017 ADVANCE DIRECTIVE DINA MCGINNIS [facility] Encounter Notes: All associated encounter notes This section contains the clinical notes associated to the Encounter. Date/Time Encounter Note(s) Provider Source Apr 15, 2024 03:12 PM PRIMARY CARE SECURE MESSAGING: LOCAL TITLE: PRIMARY CARE SECURE MESSAGING STANDARD TITLE: PRIMARY CARE SECURE MESSAGING DATE OF NOTE: APR 15, 2024@15:12 ENTRY DATE: APR 15, 2024@15:12:48 AUTHOR: YOGI DOMINGUEZ COSIGNER: URGENCY: STATUS: COMPLETED ------Original Message ----- Sent: 04/14/2024 08:16 AM ET From: LAKESHA SQUIRES To: Alex INFANTE _ PRIMARY CARE[facility] Subject: General:Total Knee Replacement Surgery Good Morning Dr. Infante, I wanted to update you regarding my knee replacement on 04/10/24. All is going well. [facility] has been very supportive and responsive pre/during and post operative. I was home on 04/11 and started in-home PT on Monday the . As of today, I am scheduled to have someone here, in home, M/W/F/M/W/F - April 15, , , , and . I'm told that the two weeks following will be additional PT. I was wondering if this can be done In Home as well, via the [place]. Being unable to drive for 6 weeks total, will make going to the outpatient appointments challenging. The current provider is [facility] [place]. The provider for the following two weeks is yet to be determined. Thank you in advance for your professionalism during this difficult process. Sincerely, Vijay Squires ------Original Message ----- Sent: 04/15/2024 03:12 PM ET From: YOGI DOMINGUEZ To: LAKESHA SQUIRES Subject: General:Total Knee Replacement Surgery Good Afternoon Mr. Squires, I spoke with the Community Care Department and your current consult for home PT is valid through 05/24/24. It would be up to [facility] to keep you on their service based on whether you have or have not met the goals that were set for you. Respectfully, Yogi Dominguez RN /janine/ YOGI DOMINGUEZ RN REGISTERED NURSE Signed: 04/15/2024 15:12 YOGI DOMINGUEZ [place] CNTRL [facility]
--- OUTSIDE RECORDS SUMMARY | 2024-06-03 09:05 | XMS_ITS | Clinical Summary ---
Author Organization Unknown Care Team Providers Care Weigh Machine Operator Name Role Phone DAVID HOLCOMB, MARCUS Unavailable Unavailable ARELY PT, NORI Unavailable Unavailable KARLI WOODWARD, SIA Unavailable Unavailable Payers Payer Name Policy Type Policy Number Effective Date Expira tion Date [facility].OPTUM.VACCN.[email or web address] Problems Condition Name Condition Details Condition Category Status Onset Date Resolution Date Last Treatment Date Treating Clinician Comments AFTERCARE FOLLOWING JOINT REPLACEMENT SURGERY Active 2023-05 00:00: 00 PRESENCE OF RIGHT ARTIFICIAL KNEE JOINT Active 2023-05 00:00: 00 VARUS DEFORMITY, NOT ELSEWHERE CLASSIFIED, RIGHT KNEE Active 2023-05 00:00: 00 UNILATERAL PRIMARY OSTEOARTHRIT IS, LEFT KNEE Active 2023-05 00:00: 00 UNSPECIFIED INTERNAL DERANGEMENT OF LEFT KNEE Active 2023-05 00:00: 00 TYPE 2 DIABETES MELLITUS WITHOUT COMPLICATION S Active 2023-05 00:00: 00 ESSENTIAL (PRIMARY) HYPERTENSION Active 2023-05 00:00: 00 DEPRESSION, UNSPECIFIED Active 2023-05 00:00: 00 ANXIETY DISORDER, UNSPECIFIED Active 2023-05 00:00: 00 HYPERLIPIDEM IA, UNSPECIFIED Active 2023-05 00:00: 00 SLEEP APNEA, UNSPECIFIED Active 2023-05 00:00: 00 DIAMOND CLEANER (CURRENT) USE OF ASPIRIN Active 05-29 00:00: 00 DIAMOND CLEANER (CURRENT) USE OF ORAL HYPOGLYCEMIC DRUGS Active 05-29 00:00: 00 LNG TRM (CRNT) USE INJECTABLE NON-INSULIN ANTIDIABETIC DRUGS Active 05-29 00:00: 00 Allergies, Adverse Reactions, Alerts Allergy Name Allergy Type Status Severity Reaction(s) Onset Date Inactive Date Treating Clinician Comments NO KNOWN ALLERGIES Propensity to adverse reactions Active 2023-05 15:06: 17 Medications Ordered Medication Name Filled Medication Name Start Date Stop Date Current Medication? Ordering Clinician Indication Dosage Frequency Signature (SIG) Comments Components acetaminoph en ER 650 mg tablet,exte nded release 2023-05 00:00: 00 Yes [id number] PAIN 1 tablet EVERY 6 HOURS 1 tablet EVERY 6 HOURS (route: oral) Med Classific ation: Analgesic , Anti-infl ammatory or Antipyret ic albuterol sulfate HFA 90 mcg/actuati on aerosol inhaler 05-29 00:00: 00 Yes [id number] WHEEZING 2 puff EVERY 4 HOURS 2 puff EVERY 4 HOURS (route: inhalation ) Med Classific ation: Respirato ry Therapy Agents aspirin 325 mg tablet 2023-05 00:00: 00 Yes [id number] ANTICOAGULA TION 1 tablet 2 TIMES DAILY 1 tablet 2 TIMES DAILY (route: oral) Med Classific ation: Analgesic , Anti-infl ammatory or Antipyret ic atorvastati n 80 mg tablet 2023-05 00:00: 00 Yes [id number] HLD 0.5 tablet DAILY 0.5 tablet DAILY (route: oral) Med Classific ation: Cardiovas cular Therapy Agents bupropion HCl XL 150 mg 24 hr tablet, extended release 2023-05 00:00: 00 Yes [id number] DEPRESSION 1 tablet DAILY 1 tablet DAILY (route: oral) Med Classific ation: Central Nervous System Agents Celebrex 200 mg capsule 2023-05 00:00: 00 Yes [id number] ANTI INFLAMMATOR Y 1 capsule DAILY 1 capsule DAILY (route: oral) Med Classific ation: Analgesic , Anti-infl ammatory or Antipyret ic docusate sodium 100 mg tablet 2023-05 00:00: 00 Yes [id number] STOOL SOFTNER 1 tablet 2 TIMES DAILY 1 tablet 2 TIMES DAILY (route: oral) Med Classific ation: Gastroint estinal Therapy Agents hydrochloro thiazide 12.5 mg tablet 2023-05 00:00: 00 Yes [id number] HTN 1 tablet DAILY 1 tablet DAILY (route: oral) Med Classific ation: Cardiovas cular Therapy Agents Jardiance 10 mg tablet 2023-05 00:00: 00 Yes [id number] DM 1 tablet DAILY 1 tablet DAILY (route: oral) Med Classific ation: Endocrine lisinopril 5 mg tablet 2023-05 00:00: 00 Yes [id number] HTN 1 tablet DAILY 1 tablet DAILY (route: oral) Med Classific ation: Cardiovas cular Therapy Agents loratadine 10 mg capsule 2023-05 00:00: 00 Yes [id number] ALLERGIES 1 capsule DAILY 1 capsule DAILY (route: oral) Med Classific ation: Respirato ry Therapy Agents metformin 500 mg tablet 2023-05 00:00: 00 Yes [id number] DM 1 tablet 2 TIMES DAILY 1 tablet 2 TIMES DAILY (route: oral) Med Classific ation: Endocrine Ozempic 1 mg/dose (4 mg/3 mL) subcutaneou s pen injector 2023-05 00:00: 00 Yes [id number] DM 1 mg WEEKLY 1 mg WEEKLY (route: subcutaneo us) Med Classific ation: Endocrine sildenafil 50 mg tablet 2023-05 00:00: 00 Yes [id number] ED 1 tablet NEEDED 1 tablet NEEDED (route: oral) Med Classific ation: Drugs to treat Erectile Dysfuncti on oxycodone 5 mg tablet 2023-05 00:00: 00 Yes [id number] PAIN 1 tablet EVERY 4 HOURS 1 tablet EVERY 4 HOURS (route: oral) Med Classific ation: Analgesic , Anti-infl ammatory or Antipyret ic Vital Signs Vital Name Observation Time Observation Value Commen ts Temperature 2024-04-26 09:15:00.000 97.2 [degF] Temperature 2024-04-22 07:25:00.000 98.2 [degF] Temperature 2024-04-19 08:25:00.000 98.2 [degF] Temperature 2024-04-17 08:01:00.000 97.7 [degF] Temperature 2024-04-15 08:08:00.000 97.9 [degF] Temperature 2024-04-12 11:17:00.000 97.5 [degF] BMI (%) 2024-04-12 11:17:00.000 26 kg/m2 Height 2024-04-12 11:17:00.000 75 [in_us] Pulse 2024-04-26 09:15:00.000 98 /min Pulse 2024-04-22 07:25:00.000 90 /min Pulse 2024-04-19 08:25:00.000 80 /min Pulse 2024-04-17 08:01:00.000 93 /min Pulse 2024-04-15 08:08:00.000 100 /min Pulse 2024-04-12 11:17:00.000 98 /min Respirations 2024-04-26 09:15:00.000 18 /min Respirations 2024-04-22 07:25:00.000 17 /min Respirations 2024-04-19 08:25:00.000 17 /min Respirations 2024-04-17 08:01:00.000 18 /min Respirations 2024-04-15 08:08:00.000 18 /min Respirations 2024-04-12 11:17:00.000 18 /min Weight (lbs) 2024-04-12 11:17:00.000 210 [lb_av] Systolic Blood Pressure 2024-04-26 09:15:00.000 132 mm [Hg] Systolic Blood Pressure 2024-04-22 07:25:00.000 130 mm [Hg] Systolic Blood Pressure 2024-04-19 08:25:00.000 140 mm [Hg] Systolic Blood Pressure 2024-04-17 08:01:00.000 150 mm [Hg] Systolic Blood Pressure 2024-04-15 08:08:00.000 122 mm [Hg] Systolic Blood Pressure 2024-04-12 11:17:00.000 128 mm [Hg] Diastolic Blood Pressure 2024-04-26 09:15:00.000 80 mm [Hg] Diastolic Blood Pressure 2024-04-22 07:25:00.000 72 mm [Hg] Diastolic Blood Pressure 2024-04-19 08:25:00.000 76 mm [Hg] Diastolic Blood Pressure 2024-04-17 08:01:00.000 84 mm [Hg] Diastolic Blood Pressure 2024-04-15 08:08:00.000 78 mm [Hg] Diastolic Blood Pressure 2024-04-12 11:17:00.000 60 mm [Hg] Plan of Treatment Planned Activity Planned Date Details Comments Future Scheduled Test PT / IT OPERATIONS SPECIALIST T O INSTRUCT PATIENT/CAREGIVER ON RISK FOR HOSPITALIZATION/EMERGENCY ROOM VISITS, TEACH SIGNS AND SYMPTOMS THAT PUT PATIENT AT RISK, WHEN TO NOTIFY NURSE/PHYSICIAN OF COMPLICATIONS/DECLINE, AND WHEN TO CALL 911. [code = PT / IT OPERATIONS SPECIALIST TO INSTRUCT PATIENT/CAREGIVER ON RISK FOR HOSPITALIZATION/EMERGENCY ROOM VISITS, TEACH SIGNS AND SYMPTOMS THAT PUT PATIENT AT RISK, WHEN TO NOTIFY NURSE/PHYSICIAN OF COMPLICATIONS/DECLINE, AND WHEN TO CALL 911.] Future Scheduled Test PT/IT OPERATIONS SPECIALIST TO PROVIDE GAIT TRAINING FOR IMPROVED MOBILITY AND /OR TO NORMALIZE GAIT PATTERN [code = PT/IT OPERATIONS SPECIALIST TO PROVIDE GAIT TRAINING FOR IMPROVED MOBILITY AND /OR TO NORMALIZE GAIT PATTERN] Future Scheduled Test THERAPEUTI C EXERCISES AND ESTABLISHING A HOME EXERCISE PROGRAM (PT/IT OPERATIONS SPECIALIST) [code = THERAPEUTIC EXERCISES AND ESTABLISHING A HOME EXERCISE PROGRAM (PT/IT OPERATIONS SPECIALIST)] Future Scheduled Test PT/IT OPERATIONS SPECIALIST TO IDENTIFY FALL RISK FACTORS; EDUCATE THE PATIENT/CAREGIVER ON WAYS TO REDUCE FALL RISK FACTORS AND ESTABLISH HOME EXERCISE PROGRAM TO MINIMIZE FALL RISK. MAY TEACH THE PATIENT FLOOR RECOVERY WHEN CLINICALLY APPROPRIATE [code = PT/IT OPERATIONS SPECIALIST TO IDENTIFY FALL RISK FACTORS; EDUCATE THE PATIENT/CAREGIVER ON WAYS TO REDUCE FALL RISK FACTORS AND ESTABLISH HOME EXERCISE PROGRAM TO MINIMIZE FALL RISK. MAY TEACH THE PATIENT FLOOR RECOVERY WHEN CLINICALLY APPROPRIATE] Future Scheduled Test PT/IT OPERATIONS SPECIALIST TO PROVIDE STAIR TRAINING [code = PT/IT OPERATIONS SPECIALIST TO PROVIDE STAIR TRAINING] Future Scheduled Test SIT TO/FRO M STAND TRANSFERS (PT/IT OPERATIONS SPECIALIST) [code = SIT TO/FROM STAND TRANSFERS (PT/IT OPERATIONS SPECIALIST)] Future Scheduled Test PT / IT OPERATIONS SPECIALIST T O MONITOR AND EDUCATE ON OXYGEN SATURATION DURING ADLS/IADLS, NOTIFY PHYSICIAN AND/OR THE RN CLINICAL RAIL SIGNAL DESIGNER FOR PHYSICIAN NOTIFICATION AND IF O2 SATS BELOW PHYSICIAN ORDERED PARAMETERS AFTER 10 MIN OF REST [code = PT / IT OPERATIONS SPECIALIST TO MONITOR AND EDUCATE ON OXYGEN SATURATION DURING ADLS/IADLS, NOTIFY PHYSICIAN AND/OR THE RN CLINICAL RAIL SIGNAL DESIGNER FOR PHYSICIAN NOTIFICATION AND IF O2 SATS BELOW PHYSICIAN ORDERED PARAMETERS AFTER 10 MIN OF REST] Future Scheduled Test PT / IT OPERATIONS SPECIALIST T O MONITOR FOR HYPO/HYPERGLYCEMIA AND CONDUCT ROUTINE FOOT INSPECTIONS. RECORD PATIENT REPORTED BLOOD SUGAR LEVELS AND NOTIFY PHYSICIAN AND/OR THE RN CLINICAL RAIL SIGNAL DESIGNER FOR PHYSICIAN NOTIFICATION IF BLOOD SUGAR LEVELS ARE OUTSIDE ORDERED PARAMETERS. TEACH PATIENT/CAREGIVER ON DAILY FOOT INSPECTIONS [code = PT / IT OPERATIONS SPECIALIST TO MONITOR FOR HYPO/HYPERGLYCEMIA AND CONDUCT ROUTINE FOOT INSPECTIONS. RECORD PATIENT REPORTED BLOOD SUGAR LEVELS AND NOTIFY PHYSICIAN AND/OR THE RN CLINICAL RAIL SIGNAL DESIGNER FOR PHYSICIAN NOTIFICATION IF BLOOD SUGAR LEVELS ARE OUTSIDE ORDERED PARAMETERS. TEACH PATIENT/CAREGIVER ON DAILY FOOT INSPECTIONS] Future Scheduled Test PT / IT OPERATIONS SPECIALIST M AY EDUCATE ON PAIN MANAGEMENT CLINICALLY INDICATED, INCLUDING NON-PHARMACOLOGICAL PAIN REDUCTION TECHNIQUES AND USE OF CRYOTHERAPY UP TO 20 MIN AT A TIME FOR PAIN MANAGEMENT 4 TIMES PER DAY TO RIGHT KNEE [code = PT / IT OPERATIONS SPECIALIST MAY EDUCATE ON PAIN MANAGEMENT CLINICALLY INDICATED, INCLUDING NON-PHARMACOLOGICAL PAIN REDUCTION TECHNIQUES AND USE OF CRYOTHERAPY UP TO 20 MIN AT A TIME FOR PAIN MANAGEMENT 4 TIMES PER DAY TO RIGHT KNEE ] Future Scheduled Test AGENCY MAY PERFORM A RESUMPTION OF CARE VISIT FOLLOWING ANY HOSPITAL ADMISSION. PT TO EVALUATE, OBSERVE / ASSESS, AND MONITOR, IT OPERATIONS SPECIALIST TO OBSERVE AND MONITOR, PROVIDE SKILLED THERAPEUTIC INTERVENTION, ACTIVITY, EDUCATION, AND TRAINING TO ADDRESS; [code = AGENCY MAY PERFORM A RESUMPTION OF CARE VISIT FOLLOWING ANY HOSPITAL ADMISSION. PT TO EVALUATE, OBSERVE / ASSESS, AND MONITOR, IT OPERATIONS SPECIALIST TO OBSERVE AND MONITOR, PROVIDE SKILLED THERAPEUTIC INTERVENTION, ACTIVITY, EDUCATION, AND TRAINING TO ADDRESS;] Future Scheduled Test PT/IT OPERATIONS SPECIALIST TO TEACH KNEE REPLACEMENT SELF-MANAGEMENT [code = PT/IT OPERATIONS SPECIALIST TO TEACH KNEE REPLACEMENT SELF-MANAGEMENT] Future Scheduled Test PT TO ASSE SS / IT OPERATIONS SPECIALIST TO MONITOR FOR AND REPORT EARLY SIGNS OF ANTICOAGULANT TOXICITY TO THE PHYSICIAN AND/OR THE RN CLINICAL RAIL SIGNAL DESIGNER FOR PHYSICIAN NOTIFICATION AND TO PROVIDE PATIENT/CAREGIVER EDUCATION ON ANTICOAGULANT THERAPY [code = PT TO ASSESS / IT OPERATIONS SPECIALIST TO MONITOR FOR AND REPORT EARLY SIGNS OF ANTICOAGULANT TOXICITY TO THE PHYSICIAN AND/OR THE RN CLINICAL RAIL SIGNAL DESIGNER FOR PHYSICIAN NOTIFICATION AND TO PROVIDE PATIENT/CAREGIVER EDUCATION ON ANTICOAGULANT THERAPY] Future Scheduled Test PT / IT OPERATIONS SPECIALIST T O OBSERVE WOUND/INCISION AND/OR INTACT DRESSING ON RIGHT KNEE AND REPORT EARLY SIGNS AND SYMPTOMS OF WOUND DETERIORATION, COMPLICATIONS, OR INFECTION TO PHYSICIAN AND/OR THE RN CLINICAL RAIL SIGNAL DESIGNER FOR PHYSICIAN NOTIFICATION. [code = PT / IT OPERATIONS SPECIALIST TO OBSERVE WOUND/INCISION AND/OR INTACT DRESSING ON RIGHT KNEE AND REPORT EARLY SIGNS AND SYMPTOMS OF WOUND DETERIORATION, COMPLICATIONS, OR INFECTION TO PHYSICIAN AND/OR THE RN CLINICAL RAIL SIGNAL DESIGNER FOR PHYSICIAN NOTIFICATION.] Goal 2024-04-26 Patient Goal - WALK WITHOUT PAIN Goal Provider Goal - PT GOAL: PATIENT/CAREGIVER WILL VERBALIZE UNDERSTANDING OF SIGNS AND SYMPTOMS THAT PUT THE PATIENT AT RISK FOR HOSPITALIZATION /EMERGENCY ROOM VISITS, WHEN TO NOTIFY NURSE/PHYSICIAN OF COMPLICATIONS/DECLINE AND WHEN TO CALL 911. Goal Provider Goal - PT LTG: PATIENT WILL DEMONSTRATE REDUCED GAIT DEVIATIONS TO REDUCE THE RISK FOR FALLING AND MINIMIZE STRAIN ON KNEES/HIPS AND BACK EVIDENCED BY IMPROVED HEEL STRIKE, ADEQUATE STEP LENGTH AND CONSISTENT FOOT CLEARANCE BILATERALLY USING LRAD TO WALK INDEPENDENTLY IN ORDER TO ACCESS ALL AREAS OF THE HOME AND TRANSPORTATION WITHIN 3 WEEKS Goal Provider Goal - PT LTG: PATIENT WILL DEMONSTRATE INCREASED STRENGTH OF RIGHT KNEE FROM 2+/5 TO 3/5 WITHIN 3 WEEKS IN ORDER TO IMPROVE SAFETY AND STABILITY WITH GAIT AND STAIRS PT LTG: PATIENT WILL DEMONSTRATE INCREASED ROM OF RIGHT KNEE FROM -4-94 DEGREES TO 0-110 DEGREES WITHIN 3 WEEKS IN ORDER TO IMPROVE PATTERN AND TECHNIQUE WITH STAIRS AND TRANSFERS Goal Provider Goal - PT LTG: PATIENT/CAREGIVER WILL DEMONSTRATE ADHERENCE TO FALL REDUCTION SELF-MANAGEMENT AND REDUCING FALL RISK FACTORS TO MINIMIZE FALL RISK BY END OF EPISODE. PT LTG: PATIENT WILL BE INDEPENDENT WITH IMPLEMENTATION OF HEP WITHIN 2 WEEKS Goal Provider Goal - PT LTG: PATIENT WILL DEMONSTRATE IMPROVED ABILITY TO SAFELY NEGOTIATE STAIRS FROM MIN ASSIST TO INDEPENDENT WITH CANE AND RAIL IN ORDER TO SAFELY ENTER AND EXIT HOME WITHIN 3 WEEKS Goal Provider Goal - PT STG: PATIENT WILL DEMONSTRATE IMPROVED ABILITY TO PERFORM SIT TO/FROM STAND TRANSFERS TO REDUCE THE RISK OF SKIN BREAKDOWN AND REDUCE FALL RISK FROM SBA TO INDEPENDENT WITHIN 2 WEEKS Goal Provider Goal - PT LTG: PATIENT WILL MAINTAIN OXYGEN SATURATION WITHIN PHYSICIAN ORDERED PARAMETERS THROUGHOUT EPISODE OF CARE. Goal Provider Goal - PATIENTS BLOOD SUGAR WILL REMAIN WELL CONTROLLED WITH SELF-MANAGEMENT THROUGHOUT EPISODE OF CARE. Goal Provider Goal - PT GOAL: PATIENT WILL DEMONSTRATE UNDERSTANDING OF PAIN MANAGEMENT TECHNIQUES EVIDENCED BY REDUCED PAIN IN RIGHT KNEE FROM 10/10 TO 4/10 WITHIN 3 WEEKS Goal Provider Goal - Goal Provider Goal - PT GOAL: PATIENT WILL DEMONSTRATE OPTIMAL OUTCOMES, INCLUDING INCREASED ROM AND STRENGTH AND FUNCTIONAL MOBILITY FOLLOWING KNEE SURGERY BY END OF EPISODE. Goal Provider Goal - PT LTG: PATIENT WILL NOT EXHIBIT SIGNS AND SYMPTOMS OF ANTICOAGULANT TOXICITY THROUGHOUT EPISODE OF CARE. Goal Provider Goal - PT GOAL: THE PATIENT WILL NOT DEMONSTRATE ANY WOUND COMPLICATIONS DURING THE EPISODE OF CARE. Reason for Visit INDEPENDENT WITH USE OF ASSISTIVE DEVICE Encounters Start Date/Time End Date/Time Encounter Type Admission Type Attending [facility] Care Facility Care Department Encounter ID Discharge Date Discharge Status Discharge Condition Discharge Reason Percent Goals Met 2024-04-12 00:00:00 2024-04-26 00:00:00 Outpatient NEW ADMISSION NORI MCGEE [facility] [id number] 2024-04-26 00:00:00 DISCHARGE TO HOME OR SELF CARE INDEPENDEN T WITH USE OF ASSISTIVE DEVICE HH ONLY - OUT PATIENT 100.00
--- OUTSIDE RECORDS SUMMARY | 2024-06-03 09:05 | XMS_ITS ---
Author Name [facility] [place] Organization [facility] [facility] [place] Address [address] [place] [address] Care Team Providers Care Email Operations Manager Name Role Phone ARIEL JIMENEZ [...] Parra's Name Patient's Relationship to Policy Parra [facility] Dec 19, 2015 [id number] PATIENT [facility] Dec 19, 2015 [id number] [phone] LAKESHA NO[employer] PATIENT [facility] May 29, 2012 [id number] PATIENT Selected Encounter This section includes the information on record at CT for the Encounter. Date/Time Encounter Type Encounter Description Reason Pro vider Source Apr 04, 2024 12:00 AM Outpatient Encounter [facility]ARE CONSULT I[facility] Encounter Template Text not used by [facility] Plan of Treatment: Future Appointments (+ 6 months) and Future Tests (+/- 45 days) The Plan of Treatment section includes future care activities for the [facility] This section includes future appointments [...] 10, 2024 08:30 AM AMBULATORY - PSYCHIATRY [facility] Jul 11, 2024 10:30 AM AMBULATORY - NONE [facility] Aug 02, 2024 10:00 AM AMBULATORY - MEDICINE [facility] Aug 09, 2024 09:00 AM AMBULATORY - PSYCHIATRY [facility] Active, Pending, and Scheduled Orders This section includes a listing of several types of active, pending, and scheduled orders, including clinic medications orders, diagnostic test orders, procedure orders and consult orders; where the start date of the order is 45 days before the date of the Encounter or 45 days after the date of theEncounter. The data comes from all CT treatment facilities. Test Date/Time Test Type Test Details Facility Name Mar 15, 2024 01:18 PM Consult Order [facility] Cons Inhalation Therapy Aides [employer] [facility] Mar 25, 2024 12:57 PM Consult Order [facility] SKILLED HOME CARE Cons Inhalation Therapy Aides [employer] [facility] Lab Results: +/- 30 days of [...] Range Comment Mar 14, 2024 02:51 PM [facility] CBC AND DIFF (AUTO) Specimen Type: BLOOD No comment entered. Ordering Provider: ARIEL JIMENEZ Report Released Date/Time: Mar 14, 2024 02:13 PM Reporting Lab: [facility] [address] [facility] [address] Performing Lab: [facility] [address] [address] WBC 6.17 10*3/uL 4.50-11.00 RBC 5.01 10*6/uL [...] 10*3/uL 0.00-0.00 Mar 14, 2024 02:50 PM [facility] HEMOGLOBIN A1C PANEL Specimen Type: BLOOD [...] September 27, 2023 10:28 AM Reporting Lab: [facility] [address] [facility] [address] Performing Lab: [facility] [address] [facility] [address] HEMOGLOBIN A1C 5.7 H 4.0-5.6 Mar 12, 2024 09:50 AM [facility] LIPID PANEL, NON FASTING Specimen Type: SERUM No comment entered. Ordering Provider: ARIEL JIMENEZ Report Released Date/Time: Feb 23, 2024 09:53 AM Reporting Lab: [facility] [address] [facility] [address] Performing Lab: [facility] [address] [facility] [address] CHOLESTEROL 130 mg/dL TRIGLYCERIDE 89 mg/dL 0-150 LDL calculated 57 mg/dL 0-129 CHOL/HDL 2.4 HDL CHOLESTEROL 55 mg/dL 40-60 Mar 12, 2024 09:50 AM [facility] PT & INR (PROTIME) Specimen Type: PLASMA No comment entered. Ordering Provider: ARIEL JIMENEZ Report Released Date/Time: Feb 23, 2024 11:30 AM Reporting Lab: [facility] [address] [facility] [address] Performing Lab: [facility] [address] [facility] [address] INR 0.9 PROTIME 10.7 s 10.0-13.1 Mar 12, 2024 09:50 AM [facility] BASIC METABOLIC PANEL (non-fasting) Specimen Type: SERUM No comment entered. Ordering Provider: ARIEL JIMENEZ Report Released Date/Time: Feb 23, 2024 09:53 AM Reporting Lab: [facility] [address] [facility] [facility] [address] Performing Lab: [address] [address] UREA NITROGEN 26 mg/dL H 7-25 GLUCOSE 136 mg/dL H 65-100 SODIUM 141 mmol/L 135-145 POTASSIUM 4.7 mmol/L 3.5-5.0 CHLORIDE 104 mmol/L 100-110 CO2 27 meq/L 20-30 CREATININE, Serum 0.86 mg/dL 0.50-1.40 eGFR(CKD-EPI 2020) >90 mL/min >60 Mar 12, 2024 09:50 AM [facility] CBC Specimen Type: BLOOD No comment entered. Ordering Provider: ARIEL JIMENEZ Report Released Date/Time: Feb 23, 2024 11:30 AM Reporting Lab: [facility] [address] [facility] [address] Performing Lab: [facility] [address] [facility] [address] WBC 4.94 10*3/uL 4.50-11.00 RBC 4.72 10*6/uL [...] 2023 09:00 AM VA-TOBACCO USER SOME DAYS [facility] Tobacco Use History This section includes a history of the smoking, or tobacco-related health factors, that were collected on or before the date of the Encounter. The data comes from the [place] facility where the Encounter took place. 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 Date/Time Encounter Note(s) Provider Source Apr 04, 2024 12:00 AM NONVA CONSULT: LOCAL TITLE: COMMUNITY CARE-CONSULT RESULT NOTE STANDARD TITLE: NONVA CONSULT DATE OF NOTE: APR 04, 2024 ENTRY DATE: MAY 01, 2024@15:23:02 AUTHOR: [employer] EXP COSIGNER: URGENCY: STATUS: COMPLETED VistA Imaging - Scanned Document SCANNED DOCUMENT SIGNATURE NOT REQUIRED Electronically Filed: 05/01/2024 by: [employer] PRODUCTION SUPPORT DEVELOPER [employer] [facility]
--- OUTSIDE RECORDS SUMMARY | 2024-06-03 09:05 | XMS_ITS | Encounter Summary ---
Author Name [facility] Organization [facility] [place] Address [address] [place] [id number] Care Team Providers Care Commissary Agent Name Role Phone ARIEL JIMENEZ Primary Care [...] Parra's Name Patient's Relationship to Policy Parra [facility] Dec 19, 2015 [id number] [employer] PATIENT [facility] Dec 19, 2015 [id number] LAKES[place] NGO [facility] May 29, 2012 [id number] [employer] PATIENT Selected Encounter This section includes the information on record at [place] for the Encounter. Date/Time Encounter Type Encounter Description Reason Provider Source May 10, 2024 08:30 AM OFFICE O/P EST MOD 30 MIN [facility] - IND ICD-10-CM F43.23 Adjustment disorder with mixed anxiety and depressed mood TIANNA NOBLE Sammy Encounter Template Text not used by [place] Assessments - Encounter Diagnoses This section includes the primary and secondary diagnoses documented for the Encounter. Date/Time Primary/Secondary Diagnosis Diagnosis Name Provider Source May 10, 2024 08:55 AM PRIMARY Adjustment disorder with mixed anxiety and depressed mood TIANNA NOBLE Plan of Treatment: Future Appointments (+ 6 months) and Future Tests (+/- 45 days) The Plan of Treatment section includes future care activities for the patient from all [place] treatmentfacilities. This section includes future appointments and future orders which are active, pending or scheduled. Future Appointments This section includes appointments that were scheduled to occur 6 months from the date of the Encounter, up to a maximum of 20 appointments. The data comes from all [place] treatment facilities. Appointment Date/Time Appointment Type Appointme nt Facility Name Jul 11, 2024 10:30 AM [facility] NONE [facility] Aug 02, 2024 10:00 AM AM[facility]ULAT[facility] - MEDICINE [facility] Aug 09, 2024 09:00 AM AMBULATORY - PSYCHIATRY [facility] Social History: Smoking Status (Most current) and Tobacco Use (All prior to encounter date) This section includes the most current, and the historical, smoking and tobacco- related health factors from the [place] facility where the Encounter took place. Current Smoking Status This section includes the most current smoking, or tobacco-related health factor, from the [place] facility where the Encounter took place. Date/Time Current Smoking Status Comment Facil ity October 23, 2020 01:00 PM VA-TOBACCO NEVER USED [facility] Tobacco Use History This section includes a history of the smoking, or tobacco-related health factors, that were collected on or before the date of the Encounter. The data comes from the [place] facility where the Encounter took place. 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 This section includes ALL of a patient's completed or amended [place] Advance and Rescinded Directives. The entries below indicate that a directive exists for the patient, but an actual copy is not included with this document. The data comes from all [place] facilities. Date Advance Directives Provider Source Jun 29, 2023 ADVANCE DIRECTIVE JAMES GALLO [facility] Sep 19, 2017 ADVANCE DIRECTIVE DINA MCGINNIS [facility] Encounter Notes: All associated encounter notes This section contains the clinical notes associated to the Encounter. Date/Time Encounter Note(s) Provider Source May 10, 2024 08:25 AM TELEHEALTH NOTE: LOCAL TITLE: [place] VIDEO CONNECT PSYCHIATRIST NOTE STANDARD TITLE: TELEHEALTH NOTE DATE OF NOTE: MAY 10, 2024@08:25 ENTRY DATE: MAY 10, 2024@08:26:08 AUTHOR: TIANNA NOBLE COSIGNER: URGENCY: STATUS: COMPLETED [place] VIDEO CONNECT PSYCHIATRIST NOTE Has ADDENDA Time spent: 21-30 minutes >16 mins supportive therapy (including empathic listening, insight building, and psychoeducation). The presents today for follow-up. PATIENT REPORT: He presents with euthymic mood--he's been a little bummed due to restrictions following knee surgery. He denies symptoms of depression, though notes feeling down some days with reduced structure. There are normal interests, motivations, and energy. He is tolertaing bupropion well and denies side effects. He feels that medication is helpful. Symptoms are not as severe as they once were prior to medication. He denies irritability. is enjoying his alf. As noted, he is recovering from knee replacement surgery at [facility] in 04/10/24. Sleep is poor on many nights related to pain 2/2 surgery. 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 He feels it will improve his mood also. He discusses his relationship with his 10-year-old dog ( Tommy, nicknamed Dina ). His spread sheet for vacation this spring is full ([place] in August). He is looking forward to seeing the family at [place]. Venu was cooperative with questions asked. Cognitive exam was grossly intact. TP was logical and organized. TC was pertinent to topic. Speech was of regular rate, rhythm, volume, and tone. Mood was fair and affect congruent to theme. He brightened appropriately. He denied SI and HI. Insight and judgment were intact. 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 He has talked about the [place] in [place]. 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 He is now seeing a chiropractor and feels that it is of some benefit. SUICIDE RISK ASSESSMENT: SUICIDE INQUIRY: IDEATION: Denies ideation. Do you currently have any homicidal ideation? No SUBSTANCE USE: alcohol--one to two drinks two to three times a week, on average. He sometimes drinks a few more. PSYCH MEDICATION HISTORY: took one antidepressant about 10 years ago--he cannot recall the name. It caused ED. Trazodone--next-day sedation sertraline--was helpful, but probably contributed to ED ACTIVE OUTPATIENT MEDICATIONS (including Supplies): Active Outpatient Medications (including Supplies): ACCU-CHEK GUIDE (GLUCOSE) TEST STRIP USE 1 STRIP TO TEST ACTIVE BLOOD SUGARS ONCE DAILY Indication: DIABETES ATORVASTATIN CALCIUM 80MG TAB TAKE ONE-HALF TABLET BY ACTIVE MOUTH EVERY EVENING AFTER SUPPER FOR CHOLESTEROL BUPROPION HCL 150MG 12HR SA TAB TAKE ONE TABLET BY MOUTH ACTIVE EVERY MORNING Indication: FOR MOOD EMPAGLIFLOZIN 10MG TAB TAKE ONE TABLET BY MOUTH ONCE DAILY ACTIVE FOR DIABETES HYDROCHLOROTHIAZIDE 12.5MG CAP TAKE ONE CAPSULE BY MOUTH ACTIVE DAILY LISINOPRIL 5MG TAB TAKE ONE TABLET BY MOUTH DAILY TO ACTIVE CONTROL BLOOD PRESSURE METFORMIN HCL 500MG 24HR SA TAB TAKE ONE TABLET BY MOUTH ACTIVE TWICE DAILY Indication: FOR TYPE 2 DIABETES MELLITUS SEMAGLUTIDE 1MG/0.75ML INJ PEN 3ML INJECT 1MG ACTIVE SUBCUTANEOUSLY ONCE A WEEK FOR DIABETES (REPLACES DULAGLUTIDE [TRULICITY]) Indication: FOR TYPE 2 DIABETES MELLITUS SILDENAFIL CITRATE 100MG TAB TAKE ONE TABLET BY MOUTH ONCE ACTIVE (S) DAILY NEEDED TAKE 1 HOUR PRIOR TO SEXUAL ACTIVITY Indication: FOR ERECTILE DYSFUNCTION Non-VA ALBUTEROL INHALER INHL,ORAL 2 PUFFS BY MOUTH EVERY ACTIVE 4 HOURS NEEDED Non-VA ASPIRIN 81MG EC TAB 81MG BY MOUTH DAILY ACTIVE Non-VA LORATADINE 10MG TAB 10MG BY MOUTH ONCE DAILY ACTIVE NEEDED 12 Total Medications ALLERGIES: Patient has answered NKA I discussed the findings and plan with the patient. I educated the patient about their mental health condition. [place] repeated back the plan and education. IMPRESSION (DSM-5): Adjustment disorder with depressed mood--improving PLAN: Continue bupropion SA 150mg QAM for mood. He is benefiting. This was switched from sertraline due to ED. He requestes 60 to 90 days of medication at a time due to travel. PCP prescribes sildenafil. He is a little down following surgery, but he agrees to call me sooner should mood worsen. He would prefer to keep antidepressant dose where it's at. At a previous visit he voiced concerns [...] maintenance. FOLLOW-UP: 12 weeks, sooner if needed REMINDERS:[place] [employer] ([employer]) Standard Documentation VV Clinician Resources Only: E911 (Emergency Call Relay Center): [phone] [facility] Crisis Line - 988 then press #1. [facility] Suicide Coordinator [phone], Ext. [phone]; Back-up Ext. [phone] [place] Police, [place], [place] [phone] Introduction: Visit is being conducted by [employer]. identified with 2 identifiers: [X] Full Name [X] Date of [ ] PA ID Card Emergency Plan: [place] confirmed and/or provided the following information in case of emergency or technology failure. PATIENT PHONE - PHONE NUMBER [CELLULAR] - Is patient phone number correct, if not, enter below: 's phone number: LAKESHA VALDESGEORGINA [address], [place], [address] [place]'s present location and address for appointment: home [place]'s emergency contact name and phone number: see cover reported that location is private and safe: Yes Informed Consent: [place] informed of the risks and benefits of Telehealth video care. [place] has the right to refuse video services. If refuses video visit, a [id number] visit will be scheduled. verbalized consent for this video visit: Yes [place] provided consent for any other persons present for visit: N/A If yes, who and relationship to patient: Secure visit: Visit was locked for security and privacy:Yes /janine/ TIANNA NOBLE DO Psychiatrist Signed: 05/10/2024 08:55 Receipt Acknowledged By: 05/10/2024 09:33 /janine/ ALBERTINA HIGH ADVANCED MERCHANDISING PROFESSOR 05/10/2024 ADDENDUM STATUS: COMPLETED Medication Reconciliation: Outpatient: Has the patient been [...] provider. /janine/ TIANNA NOBLE DO Psychiatrist Signed: 05/10/2024 09:00 TIANNA NOBLE
== END 2024-06-03 08:41 | disposition home or self-care (01) ==
LOC: HO.HOSX 08:40
PROVIDERS: Visit Provider Orthopaedic Surgery
DX: M25.562 Pain in left knee (principal); M25.561 Pain in right knee; Z96.651 Presence of right artificial knee joint
CPT/HCPCS: 73560; 73562; 99212

== ENCOUNTER 2024-06-03 09:50 | Outpatient (AMB) | payer OTHER, SELFPAY ==
--- NOTE | 2024-06-03 09:51 | MHC.OFFVIS ---
Intake Visit Reasons: 6WK PO: R TKA w/NE 04/10/24 Intake Note: Jeff is a 58 year old male who presents today for a post operative appointment s/p Right TKA 04/10/2024. Patient reports that he is doing well with some sporadic pain but understand this is part of the healing process. He is taking tylenol and Motrin PRN pain with good relief. Allergies No Known Allergies Allergy (Verified 06/03/24 09:51) HPI HPI 6WK PO: R TKA w/NE 04/10/24: Details: Jeff is a 58 year old male who presents today for a post operative appointment s/p Right TKA 04/10/2024. Patient reports that he is doing well with some sporadic pain but understand this is part of the healing process. He is taking tylenol and Motrin PRN pain with good relief. PFSH Medical History ARLETH (obstructive sleep apnea) Anxiety and depression Diabetes HLD (hyperlipidemia) HTN (hypertension) Internal derangement of left knee Surgical History H/O colonoscopy S/P placement of nerve stimulator Hx of arthroscopic knee surgery Hx of hernia repair Social History Household Members: Spouse Housing: House Are you a primary career development consultant to a significant other at home: No Do you presently have visiting nurse or other home services: No Alcohol intake: never Comment: medicated with Vicodin Patient Tobacco Use Status: Never used Tobacco Tobacco use type: Cigar service: No Current occupational status: retired Current occupation: rt hand dominant Physical Exam Extrem Other: Incision clean dry and intact 3-110 degrees of motion Results Reviewed Results Reviewed: I personally reviewed relevant radiographs. Right total knee arthroplasty in expected post operative position with no hardware complications or evidence of loosening Assessment & Plan Assessment & Plan (1) Status post total right knee replacement: Code(s): Z96.651 - Presence of right artificial knee joint Category: Surgical Plan: Doing well status post right TKA. Continue aggressive physical therapy. Follow up 4-6 weeks. May discontinue ASA. Orders: Orders XR knee LT 1V Today M25.569 - Pain in unspecified knee XR knee RT 3V Today M25.561 - Pain in right knee Coding Level of Care Code Global (94437) Diagnoses Status post total right knee replacement Z96.651
--- OUTSIDE RECORDS SUMMARY | 2024-06-03 10:29 | XMS_ITS | Continuity of Care Document ---
Author Name [facility] Organization [facility] Care Team Providers Care Production Control Technologist Name Role Phone [facility] Unavailable Unavailable Problems Combined list of problems from Department of Defense and Veterans Affairs facilities. It does not include entries that were removed or entered in error. Problem Status Onset Date Problem Type Date of Resolution Comments Source Adjustment disorder with anxious mood Active Condition Mar 26, 2019 Entered By: TIANNA NOBLE Comment: reviewedAug 05, 2020 Entered By: TIANNA NOBLE Comment: reviewed [facility] Allergic rhinitis (SNOMED CT 88339954) Active Condition [facility] Asthma Active Condition [facility] Colonoscopy normal Active Condition Sep 24, 2014 Entered By: SINAI ROSALES Comment: in 2013; was told normal; [facility] Diabetes mellitus type 2 without retinopathy (SNOMED CT [id number]) Active Condition [facility] Diabetes mellitus with neuropathy Active Condition [facility] Essential hypertension Active Condition [facility] Hearing loss Active Condition [facility] Hyperlipidemia Active Condition [facility] Lumbar radiculopathy Active Condition [facility] Obstructive sleep apnea syndrome Active Condition [facility] Pain of right knee joint (SNOMED CT 638717414320720) Active Condition [facility] Sleep apnea Active Condition [facility] Hyperglycemia due to type 2 diabetes mellitus Inactive Condition 09/19/2017 [facility] [place] Diagnosis: ICD-10-CM F43.23 Adjustment disorder with mixed anxiety and depressed mood Active Diagnosis [facility] Diagnosis: ICD-10-CM G47.33 Obstructive sleep apnea (adult) (pediatric) Active Diagnosis [facility] Diagnosis: ICD-10-CM Z46.0 Encounter for fit/adjst of spectacles and contact lenses Active Diagnosis [facility] Diagnosis: ICD-10-CM Z13.6 Encounter for screening for cardiovascular disorders Active Diagnosis [facility] Diagnosis: ICD-10-CM E11.40 Type 2 diabetes mellitus with diabetic neuropathy, unsp Active Diagnosis [facility] Diagnosis: ICD-10-CM E11.9 Type 2 diabetes mellitus without complications Active Diagnosis [facility] Diagnosis: ICD-10-CM G47.30 Sleep apnea, unspecified Active Diagnosis [facility] Diagnosis: ICD-10-CM 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 Medication Details Route Status Patient Instructions Prescription Expires Prescription Number Last Dispense Date Ordering Provider Order Date Order Qty Source ALBUTEROL INHL,ORAL INHALE 2 PUFFS BY MOUTH EVERY 4 HOURS NEEDED RESPIR ATORY (INHAL ATION) ACTIVE [facility] ASPIRIN 81MG TAB,EC TAKE ONE TABLET BY MOUTH DAILY ORAL ACTIVE GENNYAL ICE [address] [facility] [address] [facility] ATORVASTATI N [place] 80MG TAB TAKE ONE-HALF TABLET BY MOUTH EVERY EVENING AFTER SUPPER FOR CHOLESTE ROL ORAL ACTIVE 10/24/2024 [id number] 4 FURCOLO,T WALTER [address] [facility] ATORVASTATI N [place] 80MG TAB TAKE ONE-HALF TABLET BY MOUTH EVERY EVENING AFTER SUPPER FOR CHOLESTE ROL ORAL DISCONT INUED 08/21/2024 [id number] 4 FURCOLO,T WALTER 2023 45 [facility] ATORVASTATI N [place] 80MG TAB TAKE ONE-HALF TABLET BY MOUTH EVERY EVENING AFTER SUPPER FOR CHOLESTE ROL ORAL DISCONT INUED 06/20/2024 [id number] 4 MINNA PAGE 2023 45 [place] BUPROPION HCL 150MG 12HR TAB,SA TAKE ONE TABLET BY MOUTH EVERY MORNING FOR MOOD ORAL SUSPEND ED 05/11/2025 [id number] 5 NAHED NOBLE 2024 90 [place] BUPROPION HCL 150MG 12HR TAB,SA TAKE ONE TABLET BY MOUTH EVERY MORNING FOR MOOD ORAL DISCONT INUED 10/24/2024 [id number] FURCOLO,T WALTER 2023 90 [facility] BUPROPION HCL 150MG 12HR TAB,SA TAKE ONE TABLET BY MOUTH EVERY MORNING FOR MOOD ORAL DISCONT INUED 08/21/2024 [id number] 4 NAHED NOBLE 2023 60 [place] BUPROPION HCL 150MG 12HR TAB,SA TAKE ONE TABLET BY MOUTH EVERY MORNING FOR MOOD ORAL DISCONT INUED 10/08/2023 [id number] NAHED NOBLE 2023 60 [place] BUPROPION HCL 150MG 12HR TAB,SA TAKE ONE TABLET BY MOUTH EVERY MORNING FOR MOOD ORAL DISCONT INUED (EDIT) 08/27/2023 [id number] NAHED NOBLE 2023 60 [place] EMPAGLIFLOZ IN 10MG TAB TAKE ONE TABLET BY MOUTH ONCE DAILY FOR DIABETES ORAL ACTIVE 10/24/2024 [id number] 5 FURCOLO,T WALTER 2023 90 [facility] EMPAGLIFLOZ IN 10MG TAB TAKE ONE TABLET BY MOUTH ONCE DAILY FOR DIABETES ORAL DISCONT INUED 08/21/2024 [id number] 4 FURCOLO,T WALTER 2023 90 [facility] EMPAGLIFLOZ IN 10MG TAB TAKE ONE TABLET BY MOUTH ONCE DAILY FOR DIABETES ORAL DISCONT INUED 06/20/2024 [id number] 4 MINNA PAGE M 2023 90 [place] HYDROCHLORO THIAZIDE 12.5MG CAP TAKE ONE CAPSULE BY MOUTH DAILY ORAL SUSPEND ED 10/24/2024 [id number] 5 FURCOLO,T WALTER 2023 90 [facility] HYDROCHLORO THIAZIDE 12.5MG CAP TAKE ONE CAPSULE BY MOUTH DAILY ORAL DISCONT INUED 09/25/2024 [id number] FURCOLO,T WALTER 2023 90 [facility] HYDROCHLORO THIAZIDE 12.5MG CAP TAKE ONE CAPSULE BY MOUTH DAILY ORAL DISCONT INUED 10/14/2023 [id number] 3 MINNA PAGE M 2022 90 [place] INSULIN,GLA RGINE-YFGN 100UNIT/ML INJ PEN,3ML INJECT 40 UNITS SUBCUTAN EOUSLY AT BEDTIME FOR DIABETES (SAME LANTUS) SUBCUT ANEOUS DISCONT INUED BY PROVIDE R 06/07/2023 [id number] 3 MINNA PAGE M 2022 15 [place] LISINOPRIL 5MG TAB TAKE ONE TABLET BY MOUTH DAILY TO CONTROL BLOOD PRESSURE ORAL ACTIVE 10/24/2024 [id number] 5 FURCOLO,T WALTER 2023 90 [facility] LISINOPRIL 5MG TAB TAKE ONE TABLET BY MOUTH DAILY TO CONTROL BLOOD PRESSURE ORAL DISCONT INUED 09/25/2024 [id number] 4 FURCOLO,T WALTER 2023 90 [facility] LISINOPRIL 5MG TAB TAKE ONE TABLET BY MOUTH DAILY TO CONTROL BLOOD PRESSURE ORAL DISCONT INUED 10/14/2023 [id number] 4 MINNA PAGE M 2022 90 [place] LORATADINE 10MG TAB TAKE ONE TABLET BY MOUTH ONCE DAILY NEEDED ORAL ACTIVE Ian LIGHT 2017 [place] METFORMIN HCL 500MG 24HR TAB,SA TAKE ONE TABLET BY MOUTH TWICE DAILY FOR TYPE 2 DIABETES MELLITUS ORAL ACTIVE 10/24/2024 [id number] 5 FURCOLO,T WALTER 2023 180 [facility] METFORMIN HCL 500MG 24HR TAB,SA TAKE ONE TABLET BY MOUTH TWICE DAILY FOR TYPE 2 DIABETES MELLITUS ORAL DISCONT INUED 08/21/2024 [id number] FURCOLO,T WALTER 2023 180 [facility] SEMAGLUTIDE 1MG/0.75ML INJ,SOLN,PE N,3ML INJECT 1MG SUBCUTAN EOUSLY ONCE A WEEK FOR DIABETES (REPLACE S DULAGLUT LO [TRULICI TY]) SUBCUT ANEOUS ACTIVE 10/24/2024 [id number] 4 FURCOLO,T WALTER 2023 3 [facility] SEMAGLUTIDE 1MG/0.75ML INJ,SOLN,PE N,3ML INJECT 1MG SUBCUTAN EOUSLY ONCE A WEEK FOR DIABETES (REPLACE S DULAGLUT LO [TRULICI TY]) SUBCUT ANEOUS DISCONT INUED 09/07/2024 [id number] FURCOLO,T WALTER 2023 3 [facility] SEMAGLUTIDE 1MG/0.75ML INJ,SOLN,PE N,3ML INJECT 1MG SUBCUTAN EOUSLY ONCE A WEEK FOR DIABETES (REPLACE S DULAGLUT LO [TRULICI TY]) SUBCUT ANEOUS DISCONT INUED 10/14/2023 [id number] 4 MINNA PAGE 2022 3 [place] SILDENAFIL CITRATE 100MG TAB TAKE ONE TABLET BY MOUTH ONCE DAILY NEEDED TAKE 1 HOUR PRIOR TO SEXUAL ACTIVITY ORAL ACTIVE 06/29/2024 [id number] FURCOLO,T WALTER 2023 6 [facility] SILDENAFIL CITRATE 100MG TAB TAKE ONE TABLET BY MOUTH ONCE DAILY NEEDED TAKE 1 HOUR PRIOR TO SEXUAL ACTIVITY ORAL SUSPEND ED 10/05/2024 [id number] 5 FURCOLO,T WALTER 2023 18 [facility] Immunizations Combined list of available immunizations from the Department of Defense and Veterans Affairs facilities. Immunization Series Date Given Administered By Site Reaction Lot Number CVX Code Drug At Risk Paraprofessional Status Comments Source INFLUENZA, UNSPECIFIED FORMULATION 2022 88 complet ed [facility] TDAP 2022 JACINTA DOLAN ADONAY LEFT DELTO ID L 115 complet ed [facility] PNEUMOCOCCAL CONJUGATE PCV20, POLYSACCHARID E [id number] CONJUGATE, ADJUVANT, PF 2022 JACINTA DOLAN ADONAY RIGHT DELTO ID [id number] 216 complet ed [id number] EXP: 01/2024 [facility] HEP B, ADULT 2 2022 LEVONROSA LEFT DELTO ID [id number] 43 complet ed [place] HEP B, ADULT 2 2021 43 complet ed [facility] ZOSTER RECOMBINANT 2 2021 187 complet ed [facility] INFLUENZA, UNSPECIFIED FORMULATION 2021 88 complet ed [facility] HEP B, ADULT 1 2020 43 complet ed [place] ZOSTER RECOMBINANT 1 2020 187 complet ed [place] COVID-19 (MODERNA), MRNA, LNP-S, PF, 100 MCG/0.5 ML DOSE 2 2020 207 complet ed [facility] COVID-19 (MODERNA), MRNA, LNP-S, PF, 100 MCG/0.5 ML DOSE 1 2020 207 complet ed [facility] INFLUENZA, INJECTABLE, QUADRIVALENT, PRESERVATIVE FREE 2019 150 complet ed [place] INFLUENZA, INJECTABLE, QUADRIVALENT 2017 158 complet ed Site: Left Deltoid [place] INFLUENZA, SEASONAL, INJECTABLE 2016 141 complet ed Site: Right Deltoid [place] FLU,3 YRS (HISTORICAL) 2015 88 complet ed [facility] FLU,3 YRS (HISTORICAL) 2014 88 complet ed [place] FLU,3 YRS (HISTORICAL) 2013 88 complet ed Site: Right Deltoid [place] FLU,3 YRS (HISTORICAL) 2012 88 complet ed Site: Left Deltoid [place] FLU,3 YRS (HISTORICAL) 2011 88 complet ed Site: Left Deltoid [facility] DTAP, UNSPECIFIED FORMULATION 2011 107 complet ed Site: Left Deltoid [facility] PNEUMOCOCCAL, UNSPECIFIED FORMULATION 2011 109 complet ed Site: Right Deltoid [facility] FLU,3 YRS (HISTORICAL) 2010 88 complet ed [facility] FLU,3 YRS (HISTORICAL) 2009 88 complet ed [facility] TD(ADULT) UNSPECIFIED FORMULATION 2008 139 complet ed [facility] Results Combined list of recent chemistry, hematology and other laboratory results from Department of Defense and Veterans Affairs, ranging from 15 months to all on record, depending upon the facility. Order Name Results Value Reference Range Date Interpretation Specimen Comments Source CBC AND DIFF (AUTO) LEUKOCYTES [#/VOLUME] IN BLOOD BY AUTOMATED COUNT 6.17 10*3/u L 4.50 - 11.00 03/14 Specimen Type: BLOOD No comment entered. Ordering Provider: SERA JIMENEZ Report Released Date/Time: Mar 14, 2024 02:13 PM Reporting Lab: [facility] [place] [facility] [address] [facility] [address] Performing Lab: [facility] [place] [facility] [address] [facility] [address] [facility] CBC AND DIFF (AUTO) ERYTHROCYTE S [#/VOLUME] IN BLOOD BY AUTOMATED COUNT 5.01 10*6/u L 4.23 - 5.66 03/14 Specimen Type: BLOOD No comment entered. Ordering Provider: SERA JIMENEZ Report Released Date/Time: Mar 14, 2024 02:13 PM Reporting Lab: [facility] [place] [facility] [address] [facility] [address] Performing Lab: [facility] [place] [facility] [address] [facility] [address] [facility] [place] [facility] CBC AND DIFF (AUTO) HEMOGLOBIN [MASS/VOLUM E] IN BLOOD 16.0 g/dL 12.8 - 17 03/14 Specimen Type: BLOOD No comment entered. Ordering Provider: SERA JIMENEZ Report Released Date/Time: Mar 14, 2024 02:13 PM Reporting Lab: [facility] [place] [address] [address] Performing Lab: [facility] [place] [address] [address] [facility] [place] [facility] CBC AND DIFF (AUTO) HEMATOCRIT [VOLUME FRACTION] OF BLOOD BY AUTOMATED COUNT 45.8 39.2 - 50.4 03/14 Specimen Type: BLOOD No comment entered. Ordering Provider: SERA JIMENEZ Report Released Date/Time: Mar 14, 2024 02:13 PM Reporting Lab: [facility] [place] [address] [address] Performing Lab: [facility] [place] [facility] [address] [facility] [address] [facility] [place] [facility] CBC AND DIFF (AUTO) MCV [ENTITIC VOLUME] BY AUTOMATED COUNT 91.4 fL 82 - 99 03/14 Specimen Type: BLOOD No comment entered. Ordering Provider: SERA JIMENEZ Report Released Date/Time: Mar 14, 2024 02:13 PM Reporting Lab: [facility] [place] [address] [address] Performing Lab: [facility] [place] [address] [address] [facility] CBC AND DIFF (AUTO) MCHC [MASS/VOLUM E] BY AUTOMATED COUNT 34.9 g/dL 30.8 - 35.1 03/14 Specimen Type: BLOOD No comment entered. Ordering Provider: SERA JIMENEZ Report Released Date/Time: Mar 14, 2024 02:13 PM Reporting Lab: [facility] [place] [facility] [address] [facility] [address] Performing Lab: [facility] [place] [facility] [address] [facility] [address] [facility] [place] [facility] CBC AND DIFF (AUTO) PLATELETS [#/VOLUME] IN BLOOD BY AUTOMATED COUNT 193 10*3/u L 140 - 360 03/14 Specimen Type: BLOOD No comment entered. Ordering Provider: SERA JIMENEZ Report Released Date/Time: Mar 14, 2024 02:13 PM Reporting Lab: [facility] [place] [address] [address] Performing Lab: [facility] [place] [address] [address] [facility] [place] [facility] CBC AND DIFF (AUTO) ERYTHROCYTE DISTRIBUTIO N WIDTH [RATIO] BY AUTOMATED COUNT 12.7 12.0 - 16.0 03/14 Specimen Type: BLOOD No comment entered. Ordering Provider: SERA JIMENEZ Report Released Date/Time: Mar 14, 2024 02:13 PM Reporting Lab: [facility] [place] [facility] [address] [facility] [address] Performing Lab: [facility] [place] [address] [address] [facility] [place] [facility] CBC AND DIFF (AUTO) MONOCYTES [#/VOLUME] IN BLOOD BY AUTOMATED COUNT 0.63 10*3/u L 0.30 - 1.10 03/14 Specimen Type: BLOOD No comment entered. Ordering Provider: SERA JIMENEZ Report Released Date/Time: Mar 14, 2024 02:13 PM Reporting Lab: [facility] [address] [facility] [address] Performing Lab: [facility] [address] [facility] [address] [facility] CBC AND DIFF (AUTO) MCH [ENTITIC MASS] BY AUTOMATED COUNT 31.9 pg 26.2 - 32.6 03/14 Specimen Type: BLOOD No comment entered. Ordering Provider: SERA JIMENEZ Report Released Date/Time: Mar 14, 2024 02:13 PM Reporting Lab: [facility] [address] [facility] [address] Performing Lab: [facility] [place] [facility] [address] [facility] [address] [facility] CBC AND DIFF (AUTO) NEUTROPHILS /100 LEUKOCYTES IN BLOOD BY AUTOMATED COUNT 73.5 43.7 - 75.8 03/14 Specimen Type: BLOOD No comment entered. Ordering Provider: SERA JIMENEZ Report Released Date/Time: Mar 14, 2024 02:13 PM Reporting Lab: [facility] [place] [facility] [address] [facility] [address] Performing Lab: [facility] [place] [facility] [address] [facility] [address] [facility] [place] [facility] CBC AND DIFF (AUTO) LYMPHOCYTES /100 LEUKOCYTES IN BLOOD BY AUTOMATED COUNT 13.9 14.0 - 42.3 03/14 L Specimen Type: BLOOD No comment entered. Ordering Provider: SERA JIMENEZ Report Released Date/Time: Mar 14, 2024 02:13 PM Reporting Lab: [facility] [place] [facility] [address] [facility] [address] Performing Lab: [facility] [place] [facility] [address] [facility] [address] [facility] [place] [facility] CBC AND DIFF (AUTO) MONOCYTES/1 00 LEUKOCYTES IN BLOOD BY AUTOMATED COUNT 10.2 5.1 - 13.7 03/14 Specimen Type: BLOOD No comment entered. Ordering Provider: SERA JIMENEZ Report Released Date/Time: Mar 14, 2024 02:13 PM Reporting Lab: [facility] [place] [facility] [address] [facility] [address] Performing Lab: [facility] [place] [facility] [address] [facility] [address] [facility] [place] [facility] CBC AND DIFF (AUTO) EOSINOPHILS /100 LEUKOCYTES IN BLOOD BY AUTOMATED COUNT 1.9 0.4 - 6.8 03/14 Specimen Type: BLOOD No comment entered. Ordering Provider: SERA JIMENEZ Report Released Date/Time: Mar 14, 2024 02:13 PM Reporting Lab: [facility] [place] [facility] [address] [facility] [address] Performing Lab: [facility] [place] [facility] [address] [facility] [address] [facility] [place] [facility] CBC AND DIFF (AUTO) BASOPHILS/1 00 LEUKOCYTES IN BLOOD BY AUTOMATED COUNT 0.3 0.1 - 2.0 03/14 Specimen Type: BLOOD No comment entered. Ordering Provider: SERA JIMENEZ Report Released Date/Time: Mar 14, 2024 02:13 PM Reporting Lab: [facility] [place] [address] [address] Performing Lab: [facility] [place] [facility] [address] [facility] [address] [facility] [place] [facility] CBC AND DIFF (AUTO) NEUTROPHILS [#/VOLUME] IN BLOOD BY AUTOMATED COUNT 4.53 10*3/u L 2.20 - 7.60 03/14 Specimen Type: BLOOD No comment entered. Ordering Provider: SERA JIMENEZ Report Released Date/Time: Mar 14, 2024 02:13 PM Reporting Lab: [facility] [place] [facility] [address] [facility] [address] Performing Lab: [facility] [place] [facility] [address] [facility] [address] [facility] [place] [facility] CBC AND DIFF (AUTO) LYMPHOCYTES [#/VOLUME] IN BLOOD BY AUTOMATED COUNT 0.86 10*3/u L 1.00 - 3.20 03/14 L Specimen Type: BLOOD No comment entered. Ordering Provider: SERA JIMENEZ Report Released Date/Time: Mar 14, 2024 02:13 PM Reporting Lab: [facility] [place] [facility] [address] [facility] [address] Performing Lab: [facility] [place] [facility] [address] [facility] [address] [facility] [place] [facility] CBC AND DIFF (AUTO) EOSINOPHILS [#/VOLUME] IN BLOOD BY AUTOMATED COUNT 0.12 10*3/u L 0.03 - 0.44 03/14 Specimen Type: BLOOD No comment entered. Ordering Provider: SERA JIMENEZ Report Released Date/Time: Mar 14, 2024 02:13 PM Reporting Lab: [facility] [place] [address] [address] Performing Lab: [facility] [place] [facility] [address] [facility] [address] [facility] [place] [facility] CBC AND DIFF (AUTO) BASOPHILS [#/VOLUME] IN BLOOD BY AUTOMATED COUNT 0.02 10*3/u L 0.01 - 0.13 03/14 Specimen Type: BLOOD No comment entered. Ordering Provider: SERA JIMENEZ Report Released Date/Time: Mar 14, 2024 02:13 PM Reporting Lab: [facility] [place] [address] [address] Performing Lab: [facility] [place] [facility] [address] [facility] [address] [facility] [place] [facility] CBC AND DIFF (AUTO) IMMATURE GRANULOCYTE S/100 LEUKOCYTES IN BLOOD BY AUTOMATED COUNT 0.2 0.0 - 0.7 03/14 Specimen Type: BLOOD No comment entered. Ordering Provider: SERA JIMENEZ Report Released Date/Time: Mar 14, 2024 02:13 PM Reporting Lab: [facility] [place] [address] [address] Performing Lab: [facility] [place] [address] [address] [facility] CBC AND DIFF (AUTO) IMMATURE GRANULOCYTE S [#/VOLUME] IN BLOOD 0.01 10*3/u L 0.00 - 0.06 03/14 Specimen Type: BLOOD No comment entered. Ordering Provider: SERA JIMENEZ Report Released Date/Time: Mar 14, 2024 02:13 PM Reporting Lab: [address] [address] Performing Lab: [address] [place] [address] CBC AND DIFF (AUTO) NRBC % 0.0 0.0 - 0.0 03/14 Specimen Type: BLOOD No comment entered. Ordering Provider: SERA JIMENEZ Report Released Date/Time: Mar 14, 2024 02:13 PM Reporting Lab: [address] [address] Performing Lab: [address] [address] [facility] CBC AND DIFF (AUTO) NRBC, ABS 0.00 10*3/u L 0.00 - 0.00 03/14 Specimen Type: BLOOD No comment entered. Ordering Provider: SERA JIMENEZ Report Released Date/Time: Mar 14, 2024 02:13 PM Reporting Lab: [address] [address] Performing Lab: [address] [address] [facility] HEMOGLOBI N A1C PANEL HEMOGLOBIN A1C/HEMOGLO BIN.TOTAL IN BLOOD BY HPLC 5.7 4.0 - 5.6 03/14 H Specimen Type: BLOOD Comment: Values obtained from A1C measurement s can vary. For atypical A1C assays, a reported value of 7.0 could actually be between 6.72 and 7.28 if measured by a reference method. A reported value of 9.0 could actually be between 8.73 and 9.27. Ref: http://www. ngsp.org/[place] Pdata.asp Ordering Provider: SERA JIMENEZ Report Released Date/Time: September 27, 2023 10:28 AM Reporting Lab: [facility] [address] [facility] [address] Performing Lab: [facility] [address] [address] [facility] BASIC METABOLIC PANEL (non-fast ing) UREA NITROGEN [MASS/VOLUM E] IN SERUM OR PLASMA 26 mg/dL 7 - 25 03/12 H Specimen Type: SERUM No comment entered. Ordering Provider: SERA JIMENEZ Report Released Date/Time: Feb 23, 2024 09:53 AM Reporting Lab: [facility] [address] [facility] [address] Performing Lab: [facility] [address] [address] [facility] BASIC METABOLIC PANEL (non-fast ing) GLUCOSE [MASS/VOLUM E] IN SERUM OR PLASMA 136 mg/dL 65 - 100 03/12 H Specimen Type: SERUM No comment entered. Ordering Provider: SERA JIMENEZ Report Released Date/Time: Feb 23, 2024 09:53 AM Reporting Lab: [facility] [address] Performing Lab: [facility] [address] [facility] BASIC METABOLIC PANEL (non-fast ing) SODIUM [MOLES/VOLU ME] IN SERUM OR PLASMA 141 mmol/L 135 - 145 03/12 Specimen Type: SERUM No comment entered. Ordering Provider: SERA JIMENEZ Report Released Date/Time: Feb 23, 2024 09:53 AM Reporting Lab: [facility] [address] [facility] [address] Performing Lab: [facility] [address] [facility] BASIC METABOLIC PANEL (non-fast ing) POTASSIUM [MOLES/VOLU ME] IN SERUM OR PLASMA 4.7 mmol/L 3.5 - 5.0 03/12 Specimen Type: SERUM No comment entered. Ordering Provider: SERA JIMENEZ Report Released Date/Time: Feb 23, 2024 09:53 AM Reporting [facility] [address] [address] Performing Lab: [facility] [address] [address] [facility] BASIC METABOLIC PANEL (non-fast ing) CHLORIDE [MOLES/VOLU ME] IN SERUM OR PLASMA 104 mmol/L 100 - 110 03/12 Specimen Type: SERUM No comment entered. Ordering Provider: SERA JIMENEZ Report Released Date/Time: Feb 23, 2024 09:53 AM Reporting Lab: [address] [address] Performing Lab: [address] [address] [facility] BASIC METABOLIC PANEL (non-fast ing) CARBON DIOXIDE, TOTAL [MOLES/VOLU ME] IN SERUM OR PLASMA 27 meq/L 20 - 30 03/12 Specimen Type: SERUM No comment entered. Ordering Provider: SERA JIMENEZ Report Released Date/Time: Feb 23, 2024 09:53 AM Reporting [facility] [address] [address] Performing Lab: [facility] [address] [address] [facility] BASIC METABOLIC PANEL (non-fast ing) CREATININE [MASS/VOLUM E] IN SERUM OR PLASMA 0.86 mg/dL 0.50 - 1.40 03/12 Specimen Type: SERUM No comment entered. Ordering Provider: SERA JIMENEZ Report Released Date/Time: Feb 23, 2024 09:53 AM Reporting [facility] [address] [place] [address] Performing Lab: [facility] [place] [facility] [address] [facility] [address] [facility] [place] [facility] BASIC METABOLIC PANEL (non-fast ing) GLOMERULAR FILTRATION RATE/1.73 SQ M.PREDICTED [VOLUME RATE/AREA] IN SERUM, PLASMA OR BLOOD BY CREATININE- BASED FORMULA (CKD-EPI 2020) >90mL/ min 60 03/12 Specimen Type: SERUM No comment entered. Ordering Provider: SERA JIMENEZ Report Released Date/Time: Feb 23, 2024 09:53 AM Reporting Lab: [facility] [place] [facility] [address] [facility] [address] Performing Lab: [facility] [place] [facility] [address] [facility] [address] [facility] [place] [facility] CBC LEUKOCYTES [#/VOLUME] IN BLOOD BY AUTOMATED COUNT 4.94 10*3/u L 4.50 - 11.00 03/12 Specimen Type: BLOOD No comment entered. Ordering Provider: SERA JIMENEZ Report Released Date/Time: Feb 23, 2024 11:30 AM Reporting Lab: [facility] [place] [facility] [address] [facility] [address] Performing Lab: [facility] [place] [facility] [address] [facility] [address] [facility] [place] [facility] CBC ERYTHROCYTE S [#/VOLUME] IN BLOOD BY AUTOMATED COUNT 4.72 10*6/u L 4.23 - 5.66 03/12 Specimen Type: BLOOD No comment entered. Ordering Provider: SERA JIMENEZ Report Released Date/Time: Feb 23, 2024 11:30 AM Reporting Lab: [facility] [place] [facility] [address] [facility] [address] Performing Lab: [facility] [place] [facility] [address] [facility] [address] [facility] [place] [facility] CBC HEMOGLOBIN [MASS/VOLUM E] IN BLOOD 15.3 g/dL 12.8 - 17 03/12 Specimen Type: BLOOD No comment entered. Ordering Provider: SERA JIMENEZ Report Released Date/Time: Feb 23, 2024 11:30 AM Reporting Lab: [facility] [place] [facility] [address] [facility] [address] Performing Lab: [facility] [place] [facility] [address] [facility] [address] [facility] [place] [facility] CBC HEMATOCRIT [VOLUME FRACTION] OF BLOOD BY AUTOMATED COUNT 43.3 39.2 - 50.4 03/12 Specimen Type: BLOOD No comment entered. Ordering Provider: SERA JIMENEZ Report Released Date/Time: Feb 23, 2024 11:30 AM Reporting Lab: [facility] [place] [facility] [address] [facility] [address] Performing Lab: [facility] [place] [facility] [address] [facility] [address] [facility] [place] [facility] CBC MCV [ENTITIC VOLUME] BY AUTOMATED COUNT 91.7 fL 82 - 99 03/12 Specimen Type: BLOOD No comment entered. Ordering Provider: SERA JIMENEZ Report Released Date/Time: Feb 23, 2024 11:30 AM Reporting Lab: [facility] [place] [facility] [address] [facility] [address] Performing Lab: [facility] [place] [facility] [address] [facility] [address] [facility] [place] [facility] CBC MCHC [MASS/VOLUM E] BY AUTOMATED COUNT 35.3 g/dL 30.8 - 35.1 03/12 H Specimen Type: BLOOD No comment entered. Ordering Provider: SERA JIMENEZ Report Released Date/Time: Feb 23, 2024 11:30 AM Reporting Lab: [facility] [place] [facility] [address] [facility] [address] Performing Lab: [facility] [place] [facility] [address] [facility] [address] [facility] [place] [facility] CBC PLATELETS [#/VOLUME] IN BLOOD BY AUTOMATED COUNT 175 10*3/u L 140 - 360 03/12 Specimen Type: BLOOD No comment entered. Ordering Provider: SERA JIMENEZ Report Released Date/Time: Feb 23, 2024 11:30 AM Reporting Lab: [facility] [place] [facility] [address] [facility] [address] Performing Lab: [facility] [place] [facility] [address] [facility] [address] [facility] [place] [facility] CBC ERYTHROCYTE DISTRIBUTIO N WIDTH [RATIO] BY AUTOMATED COUNT 12.2 12.0 - 16.0 03/12 Specimen Type: BLOOD No comment entered. Ordering Provider: SERA JIMENEZ Report Released Date/Time: Feb 23, 2024 11:30 AM Reporting Lab: [facility] [place] [facility] [address] [facility] [address] Performing Lab: [facility] [place] [facility] [address] [facility] [address] [facility] [place] [facility] CBC MCH [ENTITIC MASS] BY AUTOMATED COUNT 32.4 pg 26.2 - 32.6 03/12 Specimen Type: BLOOD No comment entered. Ordering Provider: SERA JIMENEZ Report Released Date/Time: Feb 23, 2024 11:30 AM Reporting Lab: [facility] [place] [facility] [address] [facility] [address] Performing Lab: [facility] [place] [address] [address] [facility] [place] [facility] LIPID PANEL, NON FASTING CHOLESTEROL [MASS/VOLUM E] IN SERUM OR PLASMA 130 mg/dL 03/12 Specimen Type: SERUM No comment entered. Ordering Provider: SERA JIMENEZ Report Released Date/Time: Feb 23, 2024 09:53 AM Reporting Lab: [facility] [place] [facility] [address] [facility] [address] Performing Lab: [facility] [place] [address] [address] [facility] [place] [facility] LIPID PANEL, NON FASTING TRIGLYCERID E [MASS/VOLUM E] IN SERUM OR PLASMA 89 mg/dL 0 - 150 03/12 Specimen Type: SERUM No comment entered. Ordering Provider: SERA JIMENEZ Report Released Date/Time: Feb 23, 2024 09:53 AM Reporting Lab: [facility] [place] [facility] [address] [facility] [address] Performing Lab: [facility] [place] [facility] [address] [facility] [address] [facility] [place] [facility] LIPID PANEL, NON FASTING CHOLESTEROL IN LDL [MASS/VOLUM E] IN SERUM OR PLASMA BY CALCULATION 57 mg/dL 0 - 129 03/12 Specimen Type: SERUM No comment entered. Ordering Provider: SERA JIMENEZ Report Released Date/Time: Feb 23, 2024 09:53 AM Reporting Lab: [facility] [place] [facility] [address] [facility] [address] Performing Lab: [facility] [place] [facility] [address] [facility] [address] [facility] [place] [facility] LIPID PANEL, NON FASTING CHOLESTEROL .TOTAL/CHOL ESTEROL IN HDL [MASS RATIO] IN SERUM OR PLASMA 2.4 03/12 Specimen Type: SERUM No comment entered. Ordering Provider: SERA JIMENEZ Report Released Date/Time: Feb 23, 2024 09:53 AM Reporting Lab: [facility] [place] [facility] [address] [facility] [address] Performing Lab: [facility] [place] [facility] [address] [facility] [address] [facility] [place] [facility] LIPID PANEL, NON FASTING CHOLESTEROL IN HDL [MASS/VOLUM E] IN SERUM OR PLASMA 55 mg/dL 40 - 60 03/12 Specimen Type: SERUM No comment entered. Ordering Provider: SERA JIMENEZ Report Released Date/Time: Feb 23, 2024 09:53 AM Reporting Lab: [facility] [place] [facility] [address] [facility] [address] Performing Lab: [facility] [place] [address] [address] [facility] [place] [facility] PT & INR (PROTIME) INR IN PLATELET POOR PLASMA BY COAGULATION ASSAY 0.9 03/12 Specimen Type: PLASMA No comment entered. Ordering Provider: SERA JIMENEZ Report Released Date/Time: Feb 23, 2024 11:30 AM Reporting Lab: [facility] [place] [facility] [address] [facility] [address] Performing Lab: [facility] [address] [facility] [address] [facility] [place] [facility] PT & INR (PROTIME) PROTHROMBIN TIME (PT) 10.7 s 10.0 - 13.1 03/12 Specimen Type: PLASMA No comment entered. Ordering Provider: SERA JIMENEZ Report Released Date/Time: Feb 23, 2024 11:30 AM Reporting Lab: [facility] [address] [address] Performing Lab: [facility]N [facility] [address] [facility]PITALTRN [facility] BASIC METABOLIC PANEL (fasting) UREA NITROGEN [MASS/VOLUM E] IN SERUM OR PLASMA 19 mg/dL 7 - 25 09/20 Specimen Type: SERUM No comment entered. Ordering Provider: SERA JIMENEZ Report Released Date/Time: Jun 29, 2023 02:06 PM Reporting Lab: [facility] [place] [place] [address] [address] Performing Lab: [facility] [address] [address] [facility] BASIC METABOLIC PANEL (fasting) GLUCOSE [MASS/VOLUM E] IN SERUM OR PLASMA 113 mg/dL 65 - 100 09/20 H Specimen Type: SERUM No comment entered. Ordering Provider: SERA JIMENEZ Report Released Date/Time: Jun 29, 2023 02:06 PM Reporting Lab: [facility] [place] [facility] [address] [facility] [address] Performing Lab: [facility] [place] [address] [address] [facility] [place] [facility] BASIC METABOLIC PANEL (fasting) SODIUM [MOLES/VOLU ME] IN SERUM OR PLASMA 137 mmol/L 135 - 145 09/20 Specimen Type: SERUM No comment entered. Ordering Provider: SERA JIMENEZ Report Released Date/Time: Jun 29, 2023 02:06 PM Reporting Lab: [facility] [address] Performing Lab: [facility] [address] [facility] BASIC METABOLIC PANEL (fasting) POTASSIUM [MOLES/VOLU ME] IN SERUM OR PLASMA 4.0 mmol/L 3.5 - 5.0 09/20 Specimen Type: SERUM No comment entered. Ordering Provider: SERA JIMENEZ Report Released Date/Time: Jun 29, 2023 02:06 PM Reporting Lab: [facility]BA [facility] HOSPITALTRN [address] [address] Performing Lab: [facility] [address] [facility] BASIC METABOLIC PANEL (fasting) CHLORIDE [MOLES/VOLU ME] IN SERUM OR PLASMA 102 mmol/L 100 - 110 09/20 Specimen Type: SERUM No comment entered. Ordering Provider: SERA JIMENEZ Report Released Date/Time: Jun 29, 2023 02:06 PM Reporting Lab: [facility] [address] Performing Lab: [facility] [address] [facility]N [facility] BASIC METABOLIC PANEL (fasting) CARBON DIOXIDE, TOTAL [MOLES/VOLU ME] IN SERUM OR PLASMA 26 meq/L 20 - 30 09/20 Specimen Type: SERUM No comment entered. Ordering Provider: SERA JIMENEZ Report Released Date/Time: Jun 29, 2023 02:06 PM Reporting Lab: [facility]REL[facility] HOSPITALTRN [facility] [address] Performing Lab: [facility] [address] [facility] [address] [facility] BASIC METABOLIC PANEL (fasting) CREATININE [MASS/VOLUM E] IN SERUM OR PLASMA 0.79 mg/dL 0.50 - 1.40 09/20 Specimen Type: SERUM No comment entered. Ordering Provider: SERA JIMENEZ Report Released Date/Time: Jun 29, 2023 02:06 PM Reporting Lab: [facility] [address] [facility] [address] Performing Lab: [address] [address] [facility] BASIC METABOLIC PANEL (fasting) GLOMERULAR FILTRATION RATE/1.73 SQ M.PREDICTED [VOLUME RATE/AREA] IN SERUM, PLASMA OR BLOOD BY CREATININE- BASED FORMULA (CKD-EPI 2020) >90mL/ min 60 09/20 Specimen Type: SERUM No comment entered. Ordering Provider: SERA JIMENEZ Report Released Date/Time: Jun 29, 2023 02:06 PM Reporting Lab: [address] [address] Performing Lab: [address] [address] [facility] HEMOGLOBI N A1C PANEL HEMOGLOBIN A1C/HEMOGLO BIN.TOTAL IN BLOOD BY HPLC 5.9 4.0 - 5.6 09/20 H Specimen Type: BLOOD Comment: Values obtained from A1C measurement s can vary. For atypical A1C assays, a reported value of 7.0 could actually be between 6.72 and 7.28 if measured by a reference method. A reported value of 9.0 could actually be between 8.73 and 9.27. Ref: http://www. ngsp.org/[place] Pdata.asp Ordering Provider: SERA JIMENEZ Report Released Date/Time: Jun 29, 2023 02:06 PM Reporting Lab: [address] [address] Performing Lab: [facility] [address] [facility] [address] [facility] [place] [facility] MICROALBU MIN CREATININ E RATIO PANEL MICROALBUMI N/CREATININ E [MASS RATIO] IN URINE 8.8 mg/g 0 - 29.9 09/20 Specimen Type: URINE No comment entered. Ordering Provider: SERA JIMENEZ Report Released Date/Time: Jun 29, 2023 02:06 PM Reporting Lab: [facility] [place] [facility] [address] [facility] [address] Performing Lab: [facility] [place] [address] [address] [facility] [place] [facility] MICROALBU MIN CREATININ E RATIO PANEL MICROALBUMI N [MASS/VOLUM E] IN URINE 0.5 mg/dL 09/20 Specimen Type: URINE No comment entered. Ordering Provider: SERA JIMENEZ Report Released Date/Time: Jun 29, 2023 02:06 PM Reporting Lab: [facility] [place] [facility] [address] [facility] [address] Performing Lab: [facility] [place] [address] [address] [facility] [facility] MICROALBU MIN CREATININ E RATIO PANEL CREATININE [MASS/VOLUM E] IN URINE 56.63 mg/dL 09/20 Specimen Type: URINE No comment entered. Ordering Provider: SERA JIMENEZ Report Released Date/Time: Jun 29, 2023 02:06 PM Reporting Lab: [facility] [place] [facility] [address] [facility] [address] Performing Lab: [facility] [place] [address] [address] [facility] [place] [facility] TSH THYROTROPIN [UNITS/VOLU ME] IN SERUM OR PLASMA 1.49 u[IU]/ mL 0.35 - 5.00 09/20 Specimen Type: SERUM No comment entered. Ordering Provider: SERA JIMENEZ Report Released Date/Time: Jun 29, 2023 02:06 PM Reporting Lab: [facility] [place] [facility] [address] [facility] [address] Performing Lab: [facility] [place] [address] [facility] [address] [facility] Vital Signs Combined list of inpatient and outpatient Vital Signs from Department of Defense and Veterans Affairs, ranging from 12 months to all on record, depending upon the facility. Vital Sign Value Date Comments Source SYSTOLIC BLOOD PRESSURE 113 05/03/20 09:39:04 [facility] DIASTOLIC BLOOD PRESSURE 75 024 09:39:04 [facility] PULSE OXIMETRY 96 05/03/2024 09:39:04 [facility] WEIGHT 210.7 05/03/2024 09:39:04 [facility] BMI 26kg/m2 05/03/2024 09:39:04 [facility] PAIN 3 05/03/2024 09:39:04 [facility] TEMPERATURE 96.5 05/03/2024 09:39:04 [facility] PULSE 99 05/03/2024 09:39:04 [facility] SYSTOLIC BLOOD PRESSURE 117 03/14/20 13:57:11 [facility] DIASTOLIC BLOOD PRESSURE 74 024 13:57:11 [facility] PULSE OXIMETRY 95 03/14/2024 13:57:11 [facility] WEIGHT 220 03/14/2024 13:57:11 [facility] BMI 28kg/m2 03/14/2024 13:57:11 [facility] PAIN 5 03/14/2024 13:57:11 [facility] TEMPERATURE 97.9 03/14/2024 13:57:11 [facility] PULSE 95 03/14/2024 13[facility]57:11 [facility] RESPIRATION 16 03/14/2024 13:57:11 [facility] SYSTOLIC BLOOD PRESSURE 111 10/04/20 24 09:54:11 [facility] DIASTOLIC BLOOD PRESSURE 74 09:54:11 [facility] PULSE OXIMETRY 96 03/01/2024 09:54:11 [facility] WEIGHT 217.4 03/01/2024 09:54:11 [facility] BMI 27kg/m2 03/01/2024 09:54:11 [facility] PAIN 7 03/01/2024 09:54:11 [facility] TEMPERATURE 96.6 03/01/2024 09:54:11 [facility] PULSE 86 03/01/2024 09:54:11 [facility] SYSTOLIC BLOOD PRESSURE 121 09/27/19 09:45:49 [facility] DIASTOLIC BLOOD PRESSURE 83 09:45:49 [facility] PULSE OXIMETRY 96 09/27/2023 09:45:49 [facility] WEIGHT 221 09/27/2023 09:45:49 [facility] BMI 28kg/m2 09/27/2023 09:45:49 [facility] PAIN 0 09/27/2023 09:45:49 [facility] TEMPERATURE 98.4 09/27/2023 09:45:49 [facility] PULSE 90 09/27/2023 09:45:49 [facility] RESPIRATION 16 09/27/2023 09:45:49 [facility] SYSTOLIC BLOOD PRESSURE 106 06/29/19 12:54:24 [facility] DIASTOLIC BLOOD PRESSURE 70 024 12:54:24 [facility] PULSE OXIMETRY 99 06/29/2023 12:54:24 [facility] WEIGHT 208 06/29/2023 12:54:24 [facility] BMI 26kg/m2 06/29/2023 12:54:24 [facility] PAIN 5 06/29/2023 12:54:24 [facility] HEIGHT 75 06/29/2023 12:54:24 [facility] TEMPERATURE 98.1 06/29/2023 12:54:24 [facility] PULSE 86 06/29/2023 12:54:24 [facility] RESPIRATION 20 06/29/2023 12:54:24 [facility] Encounters Combined list of: 1) Encounters from Department of Veterans Affairs facilities going back up to thelast 18 months. 2) Encounters from the Department of [employer] facilities going back up to 280 months. Location Location Details Encounter Type Encounter Number Reason For Visit Attending Provider ADM Date DC Date Status Disposition Source [facility] Encounter [id number] 01/16 [facility] [id number] 01/17 [facility]counter [id number] 01/17 [facility]counter [id number] 02/05 [facility]counter [id number] 02/13 [facility] Encounter [id number] 02/14 [facility] EYE EXAM&TX ESTAB PT 1/>VST [id number] Diagnos is: ICD-10- CM E11.9 Type 2 diabete s mellitu s without complic ations< br/> CRESENCIO PABON 02/17 [facility] FIT SPECTACLES MULTIFOCAL [id number] Diagnos is: ICD-10- CM Z46.0 Encount er for fit/adj st of spectac les and contact lenses< br/> MEKHI HOUSE 02/17 [facility] Out[facility] Encounter [id number] 02/22 [facility]counter [id number] 02/22 [facility] Encounter [id number] 03/06 [facility] Encounter [id number] 06/19 [facility] Encounter [id number] 06/19 [facility] Encounter [id number] 06/20 [facility] En[facility] [id number] 06/21 [facility] [id number] 06/21 [facility] Outpatient Encounter [id number] 06/22 [facility] Encounter [id number] PATSY GUALLPA MOTHY E 06/27 [facility] [place] OFFICE O/P EST MOD 30 MIN [id number] Diagnos is: ICD-10- CM F43.23 Adjustm ent disorde r with mixed anxiety and depress ed mood
YESENIA NOBLE AN 06/28 [place] 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
PATSY JIMENEZ NA 06/29 [facility] Outpatient Encounter [id number] 06/29 [facility] HEARING AID FITTING/[facility] [place] [id number] Diagnos is: ICD-10- CM Z46.1 Encount er for fitting and adjustm ent of hearing aid<br/ > Derrell HORNE E 07/03 [facility] Outpatient Encounter [id number] 07/03 [facility] Outpatient Encounter [id number] Diagnos is: ICD-10- CM G47.33 Obstruc tive sleep apnea (adult) (pediat sara)
KENISHA SORIANO 07/11 [place] [facility] Outpatient Encounter [id number] 07/12 [place] [facility] En[facility] [id number] PATSY GUALLPA E 07/24 [facility] HEARING AID EXAM BOTH EARS [id number] Diagnos is: ICD-10- CM H90.3 Sensori neural hearing loss, bilater al
CAROLINE RAYO ZAINAB MCCLELLAN 07/25 [facility] En[facility] [id number] 08/07 [facility] [place] OFF[place] O/P EST MOD 30 MIN [id number] Diagnos is: ICD-10- CM F43.23 Adjustm ent disorde r with mixed anxiety and depress ed mood
YESENIA NOBLE AN 08/08 [place] [facility] Encounter [id number] 08/08 [facility] HEARING SERVICE [id number] Diagnos is: ICD-10- CM Z46.1 Encount er for fitting and adjustm ent of hearing aid<br/ > Derrell HORNE 08/17 [facility] En[facility] [id number] PATSY GUALLPA 08/20 [facility] HEARING AID FITTING/CH ECKING [id number] Diagnos is: ICD-10- CM Z46.1 Encount er for fitting and adjustm ent of hearing aid<br/ > CAROLINE RAYO 08/23 [facility] En[facility] [id number] 08/27 [facility] [facility] Encounter [id number] ERNIE HARDEN 08/28 [facility] PRO PHONE CALL 11-20 MIN [id number] Diagnos is: ICD-10- CM G47.33 Obstruc tive sleep apnea (adult) (pediat sara)
Karl PERSAUD 08/28 [facility] Outpatient Encounter [id number] 09/04 [place] [facility] FEE [id number] Diagnos is: ICD-10- CM G47.33 Obstruc tive sleep apnea (adult) (pediat sara)
LEANNA PRESTON 09/04 [facility] Outpatient Encounter [id number] Emilee GOODWIN 09/06 [place] [facility] [place] Outpatient Encounter [id number] 09/10 [facility] HISTORY CARD CLERK STDY UNATTENDED [id number] Diagnos is: ICD-10- CM G47.33 Obstruc tive sleep apnea (adult) (pediat sara)
MODE BROOKS 09/[address] 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
FURCOLO,TI NA 09/26 [facility] Encounter [id number] 10/02 [facility] Encounter [id number] Emilee GOODWIN 10/02 [facility] Out[facility] Encounter [id number] 10/12 [facility] Encounter [id number] 10/12 [facility] Encounter [id number] Emilee GOODWIN 10/15 [facility] Encounter 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
Olivia OBREGON 10/17 [facility] Outpatient Encounter [id number] Diagnos is: ICD-10- CM G47.30 Sleep apnea, unspeci fied
KENISHA SORIANO 10/25 [facility] Outpatient Encounter [id number] 11/01 [facility] OFFICE O/P EST MOD 30 MIN [id number] Diagnos is: ICD-10- CM F43.23 Adjustm ent disorde r with mixed anxiety and depress ed mood
YESENIA NOBLE 11/08 [place] [facility] Out[facility] Encounter [id number] 12/21 [facility] Encounter [id number] 01/31 [facility] Out[facility] Encounter [id number] 02/01 [facility] Encounter [id number] 02/05 [facility] Out[facility] Encounter [id number] Emilee GOODWIN E 02/07 [facility] OFFICE O/P EST MOD 30 MIN [id number] Diagnos is: ICD-10- CM F43.23 Adjustm ent disorde r with mixed anxiety and depress ed mood
YESENIA NOBLE 02/08 [facility] [facility] Out[facility] Encounter [id number] Emilee GOODWIN E 02/08 [facility] Out[facility] Encounter [id number]/11 [facility] Out[facility] Encounter [id number] 02/13 [facility] COMPRE OPH EXAM EST PT 1/> [id number] 1. Diagnos is: ICD-10- CM E11.9 Type 2 diabete s mellitu s without complic ations< br/> CRESENCIO PABON E 02/18 [facility] FIT SPECTACLES MULTIFOCAL [id number] Diagnos is: ICD-10- CM Z46.0 Encount er for fit/adj st of spectac les and contact lenses< br/> MEKHI HOUSE 02/20 [facility] Outpatient Encounter [id number] 02/25 [facility] OFFICE O/P EST LOW 20 MIN [id number] Diagnos is: ICD-10- CM G47.33 Obstruc tive sleep apnea (adult) (pediat sara)
CURIOSO-UY ,LONNIE 03/[address] [facility] Outpatient Encounter [id number] 1.03/14 [facility] Outpatient Encounter [id number] 03/14 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
FURCOLO,TI NA 03/14 [facility] ELECTROCAR DIOGRAM REPORT [id number] Diagnos is: ICD-10- CM Z13.6 Encount er for screeni ng for cardiov ascular disorde rs
HERMES MANE 03/[address] [facility] Outpatient Encounter [id number] 03/15 [facility] Outpatient Encounter [id number] ERNIE HARDEN 03/21 [facility] Outpatient Encounter [id number] CURIOSO-UY LONNIE 03/[address] [facility] FIT SPECTACLES MULTIFOCAL [id number] Diagnos is: ICD-10- CM Z46.0 Encount er for fit/adj st of spectac les and contact lenses< br/> AGUSTIN FERREIRA 03/27 [facility] Out[facility] Encounter [id number] 04/04 [facility] Out[facility] Encounter [id number] 04/10 [facility] Out[facility] Encounter [id number] 04/11 [facility] Out[facility] Encounter [id number] Emilee GOODWIN 04/15 [facility] Outpatient Encounter [id number] ERNIE HARDEN 04/22 [facility] Out[facility] Encounter [id number] 04/29 [facility] PR[facility] CPAP [id number] Diagnos is: ICD-10- CM G47.33 Obstruc tive sleep apnea (adult) (pediat sara)
MODE BROOKS 05[facility]03 [facility] 30 MIN [id number] Diagnos is: ICD-10- CM F43.23 Adjustm ent disorde r with mixed anxiety and depress ed mood
YESENIA NOBLE 05/10 [facility] [place] [facility] Outpatient Encounter [id number] 05/11 [facility] Social History Combined list of available smoking, tobacco, and other social history from Department of Defense and Veterans Affairs facilities. Social History Type Response Date Comment Source Tobacco smoking status NHIS [facility]-TOBACCO USER SOME DAYS [facility]22[facility] History of tobacco use [place]-TOBACCO DOESNT USE WI 30 MIN WAKEUP 06/22/20[facility] History of tobacco use [place]-TOBACCO NEVER USED 01/13/2022 [facility] History of tobacco use [place]-TOBACCO NEVER USED 10/23/2020 [facility] History of tobacco use [place]-TOBACCO QUIT 15 YRS OR MORE 09/12/2019 [facility] History of tobacco use [place]-TOBACCO USER SOME DAYS 09/24/2018 [facility] History of tobacco use LIFETIME NON-TOBACCO USER 05/04/2017 [facility] History of tobacco use LIFETIME NON-TOBACCO USER 05/31/2016 [facility] History of tobacco use QUIT TOBACCO USE > 7 YEARS AGO 06/04/2015 brub3cm smoked [facility] History of tobacco use CURRENT SMOKER 05/11/2015 1 cigar qomonth [facility] History of tobacco use QUIT TOBACCO USE > 7 YEARS AGO 07/06/2009 [facility] Plan of Care List of future care activities from Department of Veterans Affairs facilities. Additional future care activities may be listed in the Assessment and Plan section. Date/Time Care Activity Care Activity Detail Facili ty 07/11/2024 AMBULATORY - NONE AMBULATORY - NONE [facility] [place] [facility] 08/02/2024 AMBULATORY - MEDICINE AMBULATORY - MEDICI [facility] 08/09/2024 AMBULATORY - PSYCHIATRY AMBULATORY - PSYC [facility] Advance Directives List of completed, amended, or rescinded Advance Directives on record at Department of Veterans Affairs facilities. An actual copy of the Directive is not included. Date Advance Directive Provider Source 06/29/2023 ADVANCE DIRECTIVE JAMES GALLO [facility] [place] [facility] 09/19/2017 ADVANCE DIRECTIVE D[facility]
== END 2024-06-03 10:28 | disposition home or self-care (01) ==
PROVIDERS: PCP Internal Medicine; Visit Provider Orthopaedic Surgery
DX: Z96.651 Presence of right artificial knee joint (principal)
CPT/HCPCS: 99024

== ENCOUNTER → 2024-06-03 10:06 | Outpatient (BNV) | payer OTHER, SELFPAY | PROVIDERS: Visit Provider Radiology Diagnostic Radiology | DX: Z96.651 Presence of right artificial knee joint (principal); M17.0 Bilateral primary osteoarthritis of knee | CPT/HCPCS: 73560; 73562 ==

== ENCOUNTER 2024-07-11 10:00 | Outpatient (AMB) | payer OTHER, SELFPAY ==
--- NOTE | 2024-07-11 10:01 | MHC.OFFVIS ---
Intake Visit Reasons: 6WK f/u: R TKA w/NE 04/10/24 Intake Note: Jeff is a 58 year old male who presents today for a post operative appointment s/p Right TKA 04/10/2024. Patient reports that he is doing well but he is having increased pain with walking, he is thinking of going back to use of the cane. He was seen at the [facility] who states that the MCL is incompetent. Allergies No Known Allergies Allergy (Verified 07/11/24 10:02) HPI HPI 6WK f/u: R TKA w/NE 04/10/24: Details: Jeff is a 58 year old male who presents today for a post operative appointment s/p Right TKA 04/10/2024. Patient reports that he is doing well but he is having increased pain with walking, he is thinking of going back to use of the cane. He was seen at the [facility] who states that the MCL is incompetent. He has been extremely active and sleeping well but worried about his knee. He denies injury. [facility] Medical History ARLETH (obstructive sleep apnea) Anxiety and depression Diabetes HLD (hyperlipidemia) HTN (hypertension) Internal derangement of left knee Surgical History H/O colonoscopy S/P placement of nerve stimulator Hx of arthroscopic knee surgery Hx of hernia repair Social History Household Members: Spouse Housing: House Are you a primary critical care paramedic to a significant other at home: No Do you presently have visiting nurse or other home services: No Alcohol intake: never Comment: medicated with Vicodin Patient Tobacco Use Status: Never used Tobacco Tobacco use type: Cigar service: No Current occupational status: retired Current occupation: rt hand dominant Physical Exam Extrem Other: On exam he has to degree loss of terminal extension and flexion to 125 degrees. There is a mild effusion. He has 1+ laxity to valgus stress with no evidence of MCL incompetence. MCL is stable in extension and flexion. He walks with a varus pattern gait bilaterally. There is no evidence of infection. The incision is well healed. Assessment & Plan Assessment & Plan (1) Status post total right knee replacement: Code(s): Z96.651 - Presence of right artificial knee joint Category: Surgical Plan: Jeff is a 58-year-old gentleman who is 3 months status post right knee replacement. He had a varus knee preoperatively and postoperatively he has x-rays have looked good and today he comes into clinic with a trace effusion. Looks like he has been overdoing it. He saw a provider (non orthopedic) who assessed his right knee is having an incompetent MCL. This is not accurate. The MCL is competent. There is some mild postoperative laxity that is common and not unusual. I think the most obvious problem is that his gait mechanics are poor bilaterally and he has been walking several miles every day and not resting appropriately and not continuing to work on gentle strengthening of his core and leg musculature. I worked with him regarding his gait mechanics. He is supinator and has a mild varus thrust on the left. When he slows down and walks with more appropriate mechanics I think this will benefit him. I discussed this with him. I would like to see him back in 2-3 months. Coding Level of Care Code Global (18229) Diagnoses Status post total right knee replacement Z96.651
--- OUTSIDE RECORDS SUMMARY | 2024-07-11 10:42 | XMS_ITS | Continuity of Care Document ---
Author Name [facility] Organization [facility] Care Team Providers Care Intermission Coordinator Name Role Phone [facility] Unavailable Unavailable Problems Combined list of problems [...] [facility] Allergic rhinitis (SNOMED CT 48192501) [facility] Asthma Active Condition [facility] Colonoscopy normal Active Condition Sep 24, 2014 Entered By: SINAI ROSALES Comment: in 2013; was told normal; [facility] Diabetes mellitus type 2 without retinopathy (SNOMED CT 2042793132194) Active [facility] Diabetes mellitus with neuropathy Active Condition [facility] Essential hypertension Active Condition [facility] Hearing loss Active Condition [facility] Hyperlipidemia Active Condition [facility] Lumbar radiculopathy Active Condition [facility] Obstructive sleep apnea syndrome Active Condition [facility] Pain of right knee joint (SNOMED CT 697336840303977) Active Condition [facility] Sleep apnea Active Condition [facility] Hyperglycemia due to type 2 diabetes mellitus Inactive Condition 09/19/2017 [facility] [place] Diagnosis: ICD-10-CM F43.23 Adjustment disorder with mixed anxiety and depressed mood Active Diagnosis [facility] Diagnosis: ICD-10-CM G47.33 Obstructive sleep apnea (adult) (pediatric) Active Diagnosis [facility] Diagnosis: ICD-10-CM Z46.0 Encounter for fit/adjst of spectacles and contact lenses Active Diagnosis [facility] Diagnosis: ICD-10-CM Z13.6 Encounter for screening for cardiovascular disorders Active Diagnosis [facility] Diagnosis: ICD-10-CM E11.40 Type 2 diabetes mellitus with diabetic neuropathy, unsp Active Diagnosis [facility] Diagnosis: ICD-10-CM E11.9 Type 2 diabetes mellitus without complications Active Diagnosis [facility] Diagnosis: ICD-10-CM G47.30 Sleep apnea, unspecified Active Diagnosis [facility] Diagnosis: ICD-10-CM 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, not elsewhere classified, unspecified knee Active Diagnosis [facility] Diagnosis: ICD-10-CM Z46.1 Encounter for fitting and adjustment of hearing aid Active Diagnosis [facility] Diagnosis: ICD-10-CM H90.3 Sensorineural hearing loss, bilateral Active Diagnosis [facility] Medications Combined list of outpatient medications from [...] NEEDED RESPIR ATORY (INHAL ATION) [facility] ASPIRIN 81MG TAB,EC TAKE ONE TABLET BY MOUTH DAILY ORAL ACTIVE GENNYAL ICE 2011 [facility] ATORVASTATI N CA 80MG TAB TAKE ONE-HALF TABLET BY MOUTH EVERY EVENING AFTER SUPPER FOR CHOLESTE ROL ORAL ACTIVE 10/24/2024 [id number] 4 FURCOLO,T WALTER 2023 [facility] ATORVASTATI N [place] 80MG TAB TAKE ONE-HALF TABLET BY MOUTH EVERY EVENING AFTER SUPPER FOR CHOLESTE ROL ORAL DISCONT INUED 08/21/2024 [id number] 4 FURCOLO,T WALTER 2023 45 [facility] ATORVASTATI N [place] 80MG TAB TAKE ONE-HALF TABLET BY MOUTH EVERY EVENING AFTER SUPPER FOR CHOLESTE ROL ORAL DISCONT INUED 06/20/2024 [id number] 4 MINNA PAGE 2023 45 [place] BUPROPION HCL 150MG 12HR TAB,SA TAKE ONE TABLET BY MOUTH EVERY MORNING FOR MOOD ORAL ACTIVE 05/11/2025 [id number] 5 NAHED NOBLE 2024 90 [place] BUPROPION HCL 150MG 12HR TAB,SA TAKE ONE TABLET BY MOUTH EVERY MORNING FOR MOOD ORAL DISCONT INUED 10/24/2024 [id number] 4 FURCOLO,T WALTER 2023 90 [facility] BUPROPION HCL 150MG 12HR TAB,SA TAKE ONE TABLET BY MOUTH EVERY MORNING FOR MOOD ORAL DISCONT INUED 08/21/2024 [id number] NAHED NOBLE 2023 60 [place] BUPROPION HCL 150MG 12HR TAB,SA TAKE ONE TABLET BY MOUTH EVERY MORNING FOR MOOD ORAL DISCONT INUED 10/08/2023 [id number] 4 NAHED NOBLE 2023 60 [place] BUPROPION HCL 150MG 12HR TAB,SA TAKE ONE TABLET BY MOUTH EVERY MORNING FOR MOOD ORAL DISCONT INUED (EDIT) 08/27/2023 [id number] 4 NAHED NOBLE 2023 60 [place] EMPAGLIFLOZ IN 10MG TAB TAKE ONE TABLET BY MOUTH ONCE DAILY FOR DIABETES ORAL SUSPEND ED 10/24/2024 [id number] 5 FURCOLO,T WALTER 2023 90 [facility] EMPAGLIFLOZ IN 10MG TAB TAKE ONE TABLET BY MOUTH ONCE DAILY FOR DIABETES ORAL DISCONT INUED 08/21/2024 [id number] 4 FURCOLO,T WALTER 2023 90 [facility] EMPAGLIFLOZ IN 10MG TAB TAKE ONE TABLET BY MOUTH ONCE DAILY FOR DIABETES ORAL DISCONT INUED 06/20/2024 [id number] 4 MINNA PAGE M 2023 90 [facility] HYDROCHLORO THIAZIDE 12.5MG CAP TAKE ONE CAPSULE BY MOUTH DAILY ORAL SUSPEND ED 10/24/2024 [id number] 5 FURCOLO,T WALTER 2023 90 [facility] HYDROCHLORO THIAZIDE 12.5MG CAP TAKE ONE CAPSULE BY MOUTH DAILY ORAL DISCONT INUED 09/25/2024 [id number] 4 FURCOLO,T WALTER 2023 90 [facility] HYDROCHLORO THIAZIDE 12.5MG CAP TAKE ONE CAPSULE BY MOUTH DAILY ORAL DISCONT INUED 10/14/2023 [id number] 3 MINNA PAGE M 2022 90 [facility] LISINOPRIL 5MG TAB TAKE ONE TABLET BY MOUTH DAILY TO CONTROL BLOOD PRESSURE ORAL ACTIVE 10/24/2024 [id number] 5 FURCOLO,T WALTER 2023 90 [facility] LISINOPRIL 5MG TAB TAKE ONE TABLET BY MOUTH DAILY TO CONTROL BLOOD PRESSURE ORAL DISCONT INUED 09/25/2024 [id number] 4 FURCOLO,T WALTER 2023 [facility] LISINOPRIL 5MG TAB TAKE ONE TABLET BY MOUTH DAILY TO CONTROL BLOOD PRESSURE ORAL DISCONT INUED 10/14/2023 [id number] 4 MINNA PAGE M 2022 90 [facility] [place] LORATADINE 10MG TAB TAKE ONE TABLET BY MOUTH ONCE DAILY NEEDED ORAL ACTIVE Ian LIGHT T 2017 [place] METFORMIN HCL 500MG 24HR TAB,SA TAKE ONE TABLET BY MOUTH TWICE DAILY FOR TYPE 2 DIABETES MELLITUS ORAL ACTIVE 10/24/2024 [id number] 5 FURCOLO,T WALTER 2023 180 [facility] METFORMIN HCL 500MG 24HR TAB,SA TAKE ONE TABLET BY MOUTH TWICE DAILY FOR TYPE 2 DIABETES MELLITUS ORAL DISCONT INUED 08/21/2024 [id number] [facility] 2023 180 [facility] SEMAGLUTIDE 1MG/0.75ML INJ,SOLN,PE N,3ML INJECT 1MG SUBCUTAN EOUSLY ONCE A WEEK FOR DIABETES (REPLACE S DULAGLUT LO [TRULICI TY]) SUBCUT ANEOUS ACTIVE 10/24/2024 [id number] 4 [facility] 2023 3 [facility] SEMAGLUTIDE 1MG/0.75ML INJ,SOLN,PE N,3ML INJECT 1MG SUBCUTAN EOUSLY ONCE A WEEK FOR DIABETES (REPLACE S DULAGLUT LO [TRULICI TY]) SUBCUT ANEOUS DISCONT INUED 09/07/2024 [id number] 4 [facility] 2023 3 [facility] SEMAGLUTIDE 1MG/0.75ML INJ,SOLN,PE N,3ML INJECT 1MG SUBCUTAN EOUSLY ONCE A WEEK FOR DIABETES (REPLACE S DULAGLUT LO [TRULICI TY]) SUBCUT ANEOUS DISCONT INUED 10/14/2023 [id number] 4 MINNA PAGE 2022 3 [facility] SILDENAFIL CITRATE 100MG TAB TAKE ONE TABLET BY MOUTH ONCE DAILY NEEDED TAKE 1 HOUR PRIOR TO SEXUAL ACTIVITY ORAL ACTIVE 10/05/2024 [id number] 5 COLO,T WALTER 2023 18 [facility] SILDENAFIL CITRATE 100MG TAB TAKE ONE TABLET BY MOUTH ONCE DAILY NEEDED TAKE 1 HOUR PRIOR TO SEXUAL ACTIVITY ORAL ACTIVE 06/29/2024 [id number] LO,T WALTER 2023 6 [facility] Immunizations Combined list of available immunizations from the Department of Defense and Veterans Affairs facilities. Immunization Series Date Given Administered By Site Reaction Lot Number CVX Code Drug Commercial Glazier Status Comments Source INFLUENZA, UNSPECIFIED FORMULATION 2022 88 complet ed [facility] TDAP 2022 JACINTA DOLAN ADONAY LEFT DELTO ID L 115 complet ed [facility] PNEUMOCOCCAL CONJUGATE PCV20, POLYSACCHARID E [id number] CONJUGATE, ADJUVANT, PF 2022 JACINTA DOLAN ADONAY RIGHT DELTO ID [id number] 216 complet ed [id number] EXP: 01/2024 [facility] HEP B, ADULT 2 2022 ROSA DOS SANTOS LEFT DELTO ID [id number] 43 complet ed [place] HEP B, ADULT 2 2021 43 complet ed [facility] ZOSTER RECOMBINANT 2 2021 187 complet ed [facility] INFLUENZA, UNSPECIFIED FORMULATION 2021 88 complet ed [facility] HEP B, ADULT 1 2020 43 complet ed [place] ZOSTER RECOMBINANT 1 2020 187 complet ed [place] COVID-19 (MODERNA), MRNA, LNP-S, PF, 100 MCG/0.5 ML DOSE 2 2020 207 complet ed [employer] COVID-19 (MODERNA), MRNA, LNP-S, PF, 100 MCG/0.5 [...] Mar 14, 2024 02:13 PM Reporting Lab: [facility] [place] [facility] [address] [facility] [address] Performing Lab: [facility] [address] [facility] [address] [facility] CBC AND DIFF (AUTO) ERYTHROCYTE S [#/VOLUME] IN BLOOD BY AUTOMATED COUNT 5.01 10*6/u L 4.23 - 5.66 03/14 Specimen Type: BLOOD No comment entered. Ordering Provider: SERA JIMENEZ Report Released Date/Time: Mar 14, 2024 02:13 PM Reporting Lab: [facility] [place] [facility] [address] [facility] [address] Performing Lab: [facility] [place] [facility] [address] [facility] [address] [facility] CBC AND DIFF (AUTO) HEMOGLOBIN [MASS/VOLUM E] IN BLOOD 16.0 g/dL 12.8 - 17 03/14 Specimen Type: BLOOD No comment entered. Ordering Provider: SERA JIMENEZ Report Released Date/Time: Mar 14, 2024 02:13 PM Reporting Lab: [facility] [address] [facility] [address] Performing Lab: [facility] [facility] [address] [facility] [address] [facility] CBC AND DIFF (AUTO) HEMATOCRIT [VOLUME FRACTION] OF BLOOD BY AUTOMATED COUNT 45.8 39.2 - 50.4 03/14 Specimen Type: BLOOD No comment entered. Ordering Provider: SERA JIMENEZ Report Released Date/Time: Mar 14, 2024 02:13 PM Reporting Lab: [facility] [place] [facility] [address] [facility] [address] Performing Lab: [facility] [facility] [address] [facility] [address] [facility] CBC AND DIFF (AUTO) MCV [ENTITIC VOLUME] BY AUTOMATED COUNT 91.4 fL 82 - 99 03/14 Specimen Type: BLOOD No comment entered. Ordering Provider: SERA JIMENEZ Report Released Date/Time: Mar 14, 2024 02:13 PM Reporting Lab: [facility] [facility] [address] [facility] [address] Performing Lab: [facility] [facility] [address] [facility] [address] [facility] CBC AND DIFF (AUTO) MCHC [MASS/VOLUM E] BY AUTOMATED COUNT 34.9 g/dL 30.8 - 35.1 03/14 Specimen Type: BLOOD No comment entered. Ordering Provider: SERA JIMENEZ Report Released Date/Time: Mar 14, 2024 02:13 PM Reporting Lab: [facility] [facility] [address] [facility] [address] Performing Lab: [facility] [facility] [address] [facility] [address] [facility] CBC AND DIFF (AUTO) PLATELETS [#/VOLUME] IN BLOOD BY AUTOMATED COUNT 193 10*3/u L 140 - 360 03/14 Specimen Type: BLOOD No comment entered. Ordering Provider: SERA JIMENEZ Report Released Date/Time: Mar 14, 2024 02:13 PM Reporting Lab: [facility] [place] [facility] [address] [facility] [address] Performing Lab: [facility] [place] [facility] [address] [facility] [address] [facility] CBC AND DIFF (AUTO) ERYTHROCYTE DISTRIBUTIO N WIDTH [RATIO] BY AUTOMATED COUNT 12.7 12.0 - 16.0 03/14 Specimen Type: BLOOD No comment entered. Ordering Provider: SERA JIMENEZ Report Released Date/Time: Mar 14, 2024 02:13 PM Reporting Lab: [facility] [place] [facility] [address] [facility] [address] Performing Lab: [facility] [place] [facility] [address] [facility] [address] [facility] CBC AND DIFF (AUTO) MONOCYTES [#/VOLUME] IN BLOOD BY AUTOMATED COUNT 0.63 10*3/u L 0.30 - 1.10 03/14 Specimen Type: BLOOD No comment entered. Ordering Provider: SERA JIMENEZ Report Released Date/Time: Mar 14, 2024 02:13 PM Reporting Lab: [facility] [place] [facility] [address] [facility] [address] Performing Lab: [facility] [place] [facility] [address] [facility] [address] [facility] CBC AND DIFF (AUTO) MCH [ENTITIC MASS] BY AUTOMATED COUNT 31.9 pg 26.2 - 32.6 03/14 Specimen Type: BLOOD No comment entered. Ordering Provider: SERA JIMENEZ Report Released Date/Time: Mar 14, 2024 02:13 PM Reporting Lab: [facility] [address] [facility] [address] Performing Lab: [facility] [address] [facility] [address] [facility] CBC AND DIFF (AUTO) NEUTROPHILS /100 LEUKOCYTES IN BLOOD BY AUTOMATED COUNT 73.5 43.7 - 75.8 03/14 Specimen Type: BLOOD No comment entered. Ordering Provider: SERA JIMENEZ Report Released Date/Time: Mar 14, 2024 02:13 PM Reporting Lab: [facility] [address] [facility] [address] Performing Lab: [facility] [address] [facility] [address] [facility] CBC AND DIFF (AUTO) LYMPHOCYTES /100 LEUKOCYTES IN BLOOD BY AUTOMATED COUNT 13.9 14.0 - 42.3 03/14 L Specimen Type: BLOOD No comment entered. Ordering Provider: SERA JIMENEZ Report Released Date/Time: Mar 14, 2024 02:13 PM Reporting Lab: [facility] [address] [facility] [address] Performing Lab: [facility] [address] [facility] [address] [facility] CBC AND DIFF (AUTO) MONOCYTES/1 00 LEUKOCYTES IN BLOOD BY AUTOMATED COUNT 10.2 5.1 - 13.7 03/14 Specimen Type: BLOOD No comment entered. Ordering Provider: SERA JIMENEZ Report Released Date/Time: Mar 14, 2024 02:13 PM Reporting Lab: [facility] [address] [facility] [address] Performing Lab: [facility] [address] [facility] [address] [facility] CBC AND DIFF (AUTO) EOSINOPHILS /100 LEUKOCYTES IN BLOOD BY AUTOMATED COUNT 1.9 0.4 - 6.8 03/14 Specimen Type: BLOOD No comment entered. Ordering Provider: SERA JIMENEZ Report Released Date/Time: Mar 14, 2024 02:13 PM Reporting Lab: [facility] [place] [facility] [address] [facility] [address] Performing Lab: [facility] [place] [facility] [address] [facility] [address] [facility] CBC AND DIFF (AUTO) BASOPHILS/1 00 LEUKOCYTES IN BLOOD BY AUTOMATED COUNT 0.3 0.1 - 2.0 03/14 Specimen Type: BLOOD No comment entered. Ordering Provider: SERA JIMENEZ Report Released Date/Time: Mar 14, 2024 02:13 PM Reporting Lab: [facility] [place] [address] [address] Performing Lab: [facility] [place] [address] [address] [facility] CBC AND DIFF (AUTO) NEUTROPHILS [#/VOLUME] IN BLOOD BY AUTOMATED COUNT 4.53 10*3/u L 2.20 - 7.60 03/14 Specimen Type: BLOOD No comment entered. Ordering Provider: SERA JIMENEZ Report Released Date/Time: Mar 14, 2024 02:13 PM Reporting Lab: [facility] [place] [address] [address] Performing Lab: [facility] [place] [facility] [address] [facility] [address] [facility] CBC AND DIFF (AUTO) LYMPHOCYTES [#/VOLUME] IN BLOOD BY AUTOMATED COUNT 0.86 10*3/u L 1.00 - 3.20 03/14 L Specimen Type: BLOOD No comment entered. Ordering Provider: SERA JIMENEZ Report Released Date/Time: Mar 14, 2024 02:13 PM Reporting Lab: [facility] [address] [address] Performing Lab: [facility] [address] [address] [facility] CBC AND DIFF (AUTO) EOSINOPHILS [#/VOLUME] IN BLOOD BY AUTOMATED COUNT 0.12 10*3/u L 0.03 - 0.44 03/14 Specimen Type: BLOOD No comment entered. Ordering Provider: SERA JIMENEZ Report Released Date/Time: Mar 14, 2024 02:13 PM Reporting Lab: [facility] [place] [facility] [address] [facility] [address] Performing Lab: [facility] [place] [facility] [address] [facility] [address] [facility] CBC AND DIFF (AUTO) BASOPHILS [#/VOLUME] IN BLOOD BY AUTOMATED COUNT 0.02 10*3/u L 0.01 - 0.13 03/14 Specimen Type: BLOOD No comment entered. Ordering Provider: SERA JIMENEZ Report Released Date/Time: Mar 14, 2024 02:13 PM Reporting Lab: [facility] [place] [facility] [address] [facility] [address] Performing Lab: [facility] [place] [facility] [address] [facility] [address] [facility] CBC AND DIFF (AUTO) IMMATURE GRANULOCYTE S/100 LEUKOCYTES IN BLOOD BY AUTOMATED COUNT 0.2 0.0 - 0.7 03/14 Specimen Type: BLOOD No comment entered. Ordering Provider: SERA JIMENEZ Report Released Date/Time: Mar 14, 2024 02:13 PM Reporting Lab: [facility] [place] [facility] [address] [facility] [address] Performing Lab: [facility] [place] [facility] [address] [facility] [address] [facility] CBC AND DIFF (AUTO) IMMATURE GRANULOCYTE S [#/VOLUME] IN BLOOD 0.01 10*3/u L 0.00 - 0.06 03/14 Specimen Type: BLOOD No comment entered. Ordering Provider: SERA JIMENEZ Report Released Date/Time: Mar 14, 2024 02:13 PM Reporting Lab: [facility] [place] [facility] [address] [facility] [address] Performing Lab: [facility] TRN [facility]USE[facility] [address] [facility] [address] [facility]ITALRNOLAND [facility]OSP[facility] BIRMINGHAMN [facility]PITALUSE [facility] CBC AND DIFF (AUTO) NRBC % 0.0 0.0 - 0.0 03/14 Specimen Type: BLOOD No comment entered. Ordering Provider: SERA JIMENEZ Report Released Date/Time: Mar 14, 2024 02:13 PM Reporting Lab: [facility]OS[facility]ITALRL TRN [facility]ITALUSE[facility] [address] [facility] [address] Performing Lab: [facility] HOSPITALRNOLAND HOSPITAL BIRMINGHAMN [facility]OSPITALUSE[address] [address] [facility]N [facility] CBC AND DIFF (AUTO) NRBC, ABS 0.00 10*3/u L 0.00 - 0.00 03/14 Specimen Type: BLOOD No comment entered. Ordering Provider: SERA JIMENEZ Report Released Date/Time: Mar 14, 2024 02:13 PM Reporting Lab: [facility]OS[facility]ITALRL [facility]N [facility]ITALUSE[address] [address] Performing Lab: [facility]OSPITALRL TRN [facility]ITALUSE[address] [address] [facility]N [facility] HEMOGLOBI N A1C PANEL HEMOGLOBIN A1C/HEMOGLO [...] September 27, 2023 10:28 AM Reporting Lab: [address] [address] Performing Lab: [address] [address] [facility]N [facility] BASIC METABOLIC PANEL (non-fast ing) UREA NITROGEN [MASS/VOLUM E] IN SERUM OR PLASMA 26 mg/dL 7 - 25 03/12 H Specimen Type: SERUM No comment entered. Ordering Provider: SERA JIMENEZ Report Released Date/Time: Feb 23, 2024 09:53 AM Reporting Lab: [facility] [address] [address] Performing Lab: [facility]ITALN [facility]ITALUSE[address] [address] [facility] BASIC METABOLIC PANEL (non-fast ing) GLUCOSE [MASS/VOLUM E] IN SERUM OR PLASMA 136 mg/dL 65 - 100 03/12 H Specimen Type: SERUM No comment entered. Ordering Provider: SERA JIMENEZ Report Released Date/Time: Feb 23, 2024 09:53 AM Reporting Lab: [facility] [address] [address] Performing Lab: [facility] [address] [address] [facility] BASIC METABOLIC PANEL (non-fast ing) SODIUM [MOLES/VOLU ME] IN SERUM OR PLASMA 141 mmol/L 135 - 145 03/12 Specimen Type: SERUM No comment entered. Ordering Provider: SERA JIMENEZ Report Released Date/Time: Feb 23, 2024 09:53 AM Reporting Lab: [facility]N [facility]ITALUSE[address] [address] Performing Lab: [facility]ITALN [facility]ITALUSE[address] [address] [facility] BASIC METABOLIC PANEL (non-fast ing) POTASSIUM [MOLES/VOLU ME] IN SERUM OR PLASMA 4.7 mmol/L 3.5 - 5.0 03/12 Specimen Type: SERUM No comment entered. Ordering Provider: SERA JIMENEZ Report Released Date/Time: Feb 23, 2024 09:53 AM Reporting Lab: [facility]ITALN [facility]ITALUSETS [facility] [address] [facility] [address] Performing Lab: [facility] HOSPITALRMARY ST[facility]AT[facility] PS[facility] CENTERTRN [facility]OSPITALUSEBU[facility] [address] [facility] [address] [facility] HOSPITALRMARY [facility] PSYCHIATRY CENTERTRN [facility]OSPITALUSE [facility] BASIC METABOLIC PANEL (non-fast ing) CHLORIDE [MOLES/VOLU ME] IN SERUM OR PLASMA 104 mmol/L 100 - 110 03/12 Specimen Type: SERUM No comment entered. Ordering Provider: SERA JIMENEZ Report Released Date/Time: Feb 23, 2024 09:53 AM Reporting Lab: [facility]ITALRMARY [facility] CENTERTRN [facility]PITALUSEBU[facility] [address] [facility] [address] Performing Lab: [facility]OSPITALRNOLAND [facility]OSPITAL BIRMINGHAMN [facility] HOSPITALUSE[address] [address] [facility]ITALN [facility]PITALUSE [facility] BASIC METABOLIC PANEL (non-fast ing) CARBON DIOXIDE, TOTAL [MOLES/VOLU ME] IN SERUM OR PLASMA 27 meq/L 20 - 30 03/12 Specimen Type: SERUM No comment entered. Ordering Provider: SERA JIMENEZ Report Released Date/Time: Feb 23, 2024 09:53 AM Reporting Lab: [facility]OSPITALRNOLAND HOSPITAL BIRMINGHAMN [facility]OSPITALUSEBU[facility] [address] [facility] [address] Performing Lab: [facility]OS[facility]ITALRMARY [facility] CENTERTRN [facility]OSPITALUSE[address] [address] [facility]N [facility] BASIC METABOLIC PANEL (non-fast ing) CREATININE [MASS/VOLUM E] IN SERUM OR PLASMA 0.86 mg/dL 0.50 - 1.40 03/12 Specimen Type: SERUM No comment entered. Ordering Provider: SERA JIMENEZ Report Released Date/Time: Feb 23, 2024 09:53 AM Reporting Lab: [facility]OSPITALRMARY [facility] CENTERTRN [facility]OSPITALUSE[address] [address] Performing Lab: [facility]OSPITALRNOLAND HOSPITAL BIRMINGHAMN [facility]OSPITALUSE[address] [address] [facility]N [facility] BASIC METABOLIC PANEL (non-fast ing) GLOMERULAR FILTRATION RATE/1.73 SQ M.PREDICTED [VOLUME RATE/AREA] IN SERUM, PLASMA OR BLOOD BY CREATININE- BASED FORMULA (CKD-EPI 2020) >90mL/ min 60 03/12 Specimen Type: SERUM No comment entered. Ordering Provider: SERA JIMENEZ Report Released Date/Time: Feb 23, 2024 09:53 AM Reporting Lab: [facility] [place] [facility] [address] [facility] [address] Performing Lab: [facility] [place] [facility] [address] [facility] [address] [facility] CBC LEUKOCYTES [#/VOLUME] IN BLOOD BY AUTOMATED COUNT 4.94 10*3/u L 4.50 - 11.00 03/12 Specimen Type: BLOOD No comment entered. Ordering Provider: SERA JIMEENZ Report Released Date/Time: Feb 23, 2024 11:30 AM Reporting Lab: [facility] [place] [facility] [address] [facility] [address] Performing Lab: [facility] [place] [facility] [address] [facility] [address] [facility] [place] [facility] CBC ERYTHROCYTE S [#/VOLUME] IN BLOOD BY AUTOMATED COUNT 4.72 10*6/u L 4.23 - 5.66 03/12 Specimen Type: BLOOD No comment entered. Ordering Provider: SERA JIMENEZ Report Released Date/Time: Feb 23, 2024 11:30 AM Reporting Lab: [facility] [place] [facility] [address] [facility] [address] Performing Lab: [facility] [place] [facility] [address] [facility] [address] [facility] [place] [facility] CBC HEMOGLOBIN [MASS/VOLUM E] IN BLOOD 15.3 g/dL 12.8 - 17 03/12 Specimen Type: BLOOD No comment entered. Ordering Provider: SERA JIMENEZ Report Released Date/Time: Feb 23, 2024 11:30 AM Reporting Lab: [facility] [place] [facility] [address] [facility] [address] Performing Lab: [facility] [place] [address] [address] [facility] [place] [facility] CBC HEMATOCRIT [VOLUME FRACTION] OF BLOOD BY AUTOMATED COUNT 43.3 39.2 - 50.4 03/12 Specimen Type: BLOOD No comment entered. Ordering Provider: SERA JIMENEZ Report Released Date/Time: Feb 23, 2024 11:30 AM Reporting Lab: [facility] [place] [facility] [address] [facility] [address] Performing Lab: [facility] [place] [facility] [address] [facility] [address] [facility] [place] [facility] CBC MCV [ENTITIC VOLUME] BY AUTOMATED COUNT 91.7 fL 82 - 99 03/12 Specimen Type: BLOOD No comment entered. Ordering Provider: SERA JIMENEZ Report Released Date/Time: Feb 23, 2024 11:30 AM Reporting Lab: [facility] [place] [facility] [address] [facility] [address] Performing Lab: [facility] [place] [facility] [address] [facility] [address] [facility] [place] [facility] CBC MCHC [MASS/VOLUM E] BY AUTOMATED COUNT 35.3 g/dL 30.8 - 35.1 03/12 H Specimen Type: BLOOD No comment entered. Ordering Provider: SERA JIMENEZ Report Released Date/Time: Feb 23, 2024 11:30 AM Reporting Lab: [facility] [place] [facility] [address] [facility] [address] Performing Lab: [facility] [place] [facility] [address] [facility] [address] [facility] [place] [facility] CBC PLATELETS [#/VOLUME] IN BLOOD BY AUTOMATED COUNT 175 10*3/u L 140 - 360 03/12 Specimen Type: BLOOD No comment entered. Ordering Provider: SERA JIMENEZ Report Released Date/Time: Feb 23, 2024 11:30 AM Reporting Lab: [facility] [place] [facility] [address] [facility] [address] Performing Lab: [facility] [place] [facility] [address] [facility] [address] [facility] [place] [facility] CBC ERYTHROCYTE DISTRIBUTIO N WIDTH [RATIO] BY AUTOMATED COUNT 12.2 12.0 - 16.0 03/12 Specimen Type: BLOOD No comment entered. Ordering Provider: SERA JIMENEZ Report Released Date/Time: Feb 23, 2024 11:30 AM Reporting Lab: [facility] [place] [facility] [address] [facility] [address] Performing Lab: [facility] [place] [facility] [address] [facility] [address] [facility] [place] [facility] CBC MCH [ENTITIC MASS] BY AUTOMATED COUNT 32.4 pg 26.2 - 32.6 03/12 Specimen Type: BLOOD No comment entered. Ordering Provider: SERA JIMENEZ Report Released Date/Time: Feb 23, 2024 11:30 AM Reporting Lab: [facility] [address] Performing Lab: [facility]ITALUS[facility] [address] [address] [facility] [place] [facility] LIPID PANEL, NON FASTING CHOLESTEROL [MASS/VOLUM E] IN SERUM OR PLASMA 130 mg/dL 03/12 Specimen Type: SERUM No comment entered. Ordering Provider: SERA JIMENEZ Report Released Date/Time: Feb 23, 2024 09:53 AM Reporting Lab: [facility] [place] [address] [address] Performing Lab: [facility] [place] [facility] [address] [facility] [address] [facility] [place] [facility] LIPID PANEL, NON FASTING TRIGLYCERID E [MASS/VOLUM E] IN SERUM OR PLASMA 89 mg/dL 0 - 150 03/12 Specimen Type: SERUM No comment entered. Ordering Provider: SERA JIMENEZ Report Released Date/Time: Feb 23, 2024 09:53 AM Reporting Lab: [facility] [place] [facility] [address] [facility] [address] Performing Lab: [facility]ITAL[facility] [address] [facility] [address] [facility] [place] [facility] LIPID PANEL, NON FASTING CHOLESTEROL IN LDL [MASS/VOLUM E] IN SERUM OR PLASMA BY CALCULATION 57 mg/dL 0 - 129 03/12 Specimen Type: SERUM No comment entered. Ordering Provider: SERA JIMENEZ Report Released Date/Time: Feb 23, 2024 09:53 AM Reporting Lab: [facility] [place] [facility] [address] [facility] [address] Performing Lab: [facility] [place] [facility] [address] [facility] [address] [facility] [place] [facility] LIPID PANEL, NON FASTING CHOLESTEROL .TOTAL/CHOL ESTEROL IN HDL [MASS RATIO] IN SERUM OR PLASMA 2.4 03/12 Specimen Type: SERUM No comment entered. Ordering Provider: SERA JIMENEZ Report Released Date/Time: Feb 23, 2024 09:53 AM Reporting Lab: [facility]ITALRMARY [facility]TRN [place] [address] [address] Performing Lab: [facility] [place] [facility] [address] [facility] [address] [facility]ITALRMARY [facility] CENTERTRN [place] [facility] LIPID PANEL, NON FASTING CHOLESTEROL IN HDL [MASS/VOLUM E] IN SERUM OR PLASMA 55 mg/dL 40 - 60 03/12 Specimen Type: SERUM No comment entered. Ordering Provider: SERA JIMENEZ Report Released Date/Time: Feb 23, 2024 09:53 AM Reporting Lab: [facility] [place] [place] [address] [address] Performing Lab: [facility] [place] [place] [address] [address] [facility] [place] [facility] PT & INR (PROTIME) INR IN PLATELET POOR PLASMA BY COAGULATION ASSAY 0.9 03/12 Specimen Type: PLASMA No comment entered. Ordering Provider: SERA JIMENEZ Report Released Date/Time: Feb 23, 2024 11:30 AM Reporting Lab: [facility] [place] [address] [address] Performing Lab: [facility] [address] [facility] [place] [facility] PT & INR (PROTIME) PROTHROMBIN TIME (PT) 10.7 s 10.0 - 13.1 03/12 Specimen Type: PLASMA No comment entered. Ordering Provider: SERA JIMENEZ Report Released Date/Time: Feb 23, 2024 11:30 AM Reporting Lab: [facility]ITALRMARY [facility] CENTERTRN [facility]USE[address] [address] Performing Lab: [facility] [address] [facility]OSPITALRNOLAND HOSPITAL BIRMINGHAMN [facility]OSPITALUSE [facility] BASIC METABOLIC PANEL (fasting) UREA NITROGEN [MASS/VOLUM E] IN SERUM OR PLASMA 19 mg/dL 7 - 09/20 Specimen Type: SERUM No comment entered. Ordering Provider: SERA JIMENEZ Report Released Date/Time: Jun 29, 2023 02:06 PM Reporting Lab: [facility]ITALRMARY [facility] CENTERTRN [facility]USE[address] [address] Performing Lab: [facility]RL W[facility] [address] [facility]N [facility] BASIC METABOLIC PANEL (fasting) GLUCOSE [MASS/VOLUM E] IN SERUM OR PLASMA 113 mg/dL 65 - 100 09/20 H Specimen Type: SERUM No comment entered. Ordering Provider: SERA JIMENEZ Report Released Date/Time: Jun 29, 2023 02:06 PM Reporting Lab: [facility] TRN [place] [address] Performing Lab: [facility]RL W[facility]N [facility] [address] [facility] HOSPITALRNOLAND HOSPITAL BIRMINGHAMN [facility]OSPITALUSE [facility] BASIC METABOLIC PANEL (fasting) SODIUM [MOLES/VOLU ME] IN SERUM OR PLASMA 137 mmol/L 135 - 145 09/20 Specimen Type: SERUM No comment entered. Ordering Provider: SERA JIMENEZ Report Released Date/Time: Jun 29, 2023 02:06 PM Reporting Lab: [facility]PITALRMARY [facility] CENTERTRN [facility]ITALUSE[address] [address] Performing Lab: [facility]ITALRL TRN [facility]SE[facility] [address] [facility] [address] [facility]OSPITALRMARY [facility] CENTERTRN [facility]OSPITALUSE [facility] BASIC METABOLIC PANEL (fasting) POTASSIUM [MOLES/VOLU ME] IN SERUM OR PLASMA 4.0 mmol/L 3.5 - 5.0 09/20 Specimen Type: SERUM No comment entered. Ordering Provider: SERA JIMENEZ Report Released Date/Time: Jun 29, 2023 02:06 PM Reporting Lab: [facility]RL TRN [facility] [address] [facility] [address] Performing Lab: [facility]OSPITALRMARY [facility] CENTERTRN [facility]PITALUSEBUFF[facility] [address] [facility] [address] [facility]ITALN [facility] BASIC METABOLIC PANEL (fasting) CHLORIDE [MOLES/VOLU ME] IN SERUM OR PLASMA 102 mmol/L 100 - 110 09/20 Specimen Type: SERUM No comment entered. Ordering Provider: SERA JIMENEZ Report Released Date/Time: Jun 29, 2023 02:06 PM Reporting Lab: [facility]ITALRL TRN [facility]ITALUSEBUFFAL[facility] [address] [facility] [address] Performing Lab: [facility]ITALRL TRN [facility]PITALUSEBUFFALO [facility] [address] [facility] [address] [facility] HOSPITALRNOLAND HOSPITAL BIRMINGHAMN [facility] BASIC METABOLIC PANEL (fasting) CARBON DIOXIDE, TOTAL [MOLES/VOLU ME] IN SERUM OR PLASMA 26 meq/L 20 - 30 09/20 Specimen Type: SERUM No comment entered. Ordering Provider: SERA JIMENEZ Report Released Date/Time: Jun 29, 2023 02:06 PM Reporting Lab: [facility]ITALRL TRN [facility]ITALUSEBUFFALO [facility] [address] [facility] [address] Performing Lab: [facility] HOSPITALRMARY [facility] CENTERTRN [facility]ITALUSE[address] [address] [facility]ITALN [facility] BASIC METABOLIC PANEL (fasting) CREATININE [MASS/VOLUM E] IN SERUM OR PLASMA 0.79 mg/dL 0.50 - 1.40 09/20 Specimen Type: SERUM No comment entered. Ordering Provider: SERA JIMENEZ Report Released Date/Time: Jun 29, 2023 02:06 PM Reporting Lab: [address] [address] Performing Lab: [address] [address] [facility] BASIC METABOLIC PANEL (fasting) GLOMERULAR FILTRATION RATE/1.73 SQ M.PREDICTED [VOLUME RATE/AREA] IN SERUM, PLASMA OR BLOOD BY CREATININE- BASED FORMULA (CKD-EPI 2020) >90mL/ min 60 09/20 Specimen Type: SERUM No comment entered. Ordering Provider: SERA JIMENEZ Report Released Date/Time: Jun 29, 2023 02:06 PM Reporting Lab: [address] [address] Performing Lab: [address] [address] [facility] HEMOGLOBI N A1C PANEL HEMOGLOBIN A1C/HEMOGLO BIN.TOTAL [...] Jun 29, 2023 02:06 PM Reporting Lab: [address] [address] Performing Lab: [address] [address] [facility] MICROALBU MIN CREATININ E RATIO PANEL MICROALBUMI N/CREATININ E [MASS RATIO] IN URINE 8.8 mg/g 0 - 29.9 09/20 Specimen Type: URINE No comment entered. Ordering Provider: SERA JIMENEZ Report Released Date/Time: Jun 29, 2023 02:06 PM Reporting Lab: [facility] [place] [facility] [address] [facility] [address] Performing Lab: [facility] [place] [facility] [address] [facility] [address] [facility] [place] [facility] MICROALBU MIN CREATININ E RATIO PANEL MICROALBUMI N [MASS/VOLUM E] IN URINE 0.5 mg/dL 09/20 Specimen Type: URINE No comment entered. Ordering Provider: SERA JIMENEZ Report Released Date/Time: Jun 29, 2023 02:06 PM Reporting Lab: [facility] [place] [facility] [address] [facility] [address] Performing Lab: [facility] [place] [facility] [address] [facility] [address] [facility] [place] [facility] MICROALBU MIN CREATININ E RATIO PANEL CREATININE [MASS/VOLUM E] IN URINE 56.63 mg/dL 09/20 Specimen Type: URINE No comment entered. Ordering Provider: SERA JIMENEZ Report Released Date/Time: Jun 29, 2023 02:06 PM Reporting Lab: [facility] [place] [facility] [address] [facility] [address] Performing Lab: [facility] [place] [facility] [address] [facility] [address] [facility] [place] [facility] TSH THYROTROPIN [UNITS/VOLU ME] IN SERUM OR PLASMA 1.49 u[IU]/ mL 0.35 - 5.00 09/20 Specimen Type: SERUM No comment entered. Ordering Provider: SERA JIMENEZ Report Released Date/Time: Jun 29, 2023 02:06 PM Reporting Lab: [facility] [place] [facility] [address] [facility] [address] Performing Lab: [facility] [place] [facility] [address] [facility] [address] [facility] [place] [facility] Vital Signs Combined list of inpatient and outpatient Vital Signs from Department of Defense and Veterans Affairs, ranging from 12 months to all on record, depending upon the facility. Vital Sign Value Date Comments Source SYSTOLIC BLOOD PRESSURE 113 05/03/20 09:39:04 [facility] DIASTOLIC BLOOD PRESSURE 75 09:39:04 [facility] PULSE OXIMETRY 96 05/03/2024 09:39:04 [facility] WEIGHT 210.7 05/03/2024 09:39:04 [facility] BMI 26 kg/m2 05/03/2024 09:39:04 [facility] PAIN 3 05/03/2024 09:39:04 [facility] TEMPERATURE 96.5 05/03/2024 09:39:04 [facility] PULSE 99 05/03/2024 09:39:04 [facility] SYSTOLIC BLOOD PRESSURE 117 03/14/20 13:57:11 [facility] [place] [facility] DIASTOLIC BLOOD PRESSURE 74 13:57:11 [facility] [place] [facility] PULSE OXIMETRY 95 03/14/2024 13:57:11 [facility] [place] WEIGHT 220 03/14/2024 13:57:11 [facility] [place] BMI 28 kg/m2 03/14/2024 13:57:11 [facility] PAIN 5 03/14/2024 13:57:11 [facility] [place] [facility] TEMPERATURE 97.9 03/14/2024 13:57:11 [facility] [place] PULSE 95 03/14/2024 13:57:11 [facility] RESPIRATION 16 03/14/2024 13:57:11 [facility] [place] [facility] SYSTOLIC BLOOD PRESSURE 111 03/01/20 09:54:11 [facility] DIASTOLIC BLOOD PRESSURE 74 09:54:11 [facility] PULSE OXIMETRY 96 03/01/2024 09:54:11 [facility] WEIGHT 217.4 03/01/2024 09:54:11 [facility] BMI 27 kg/m2 03/01/2024 09:54:11 [facility] PAIN 7 03/01/2024 09:54:11 [facility] TEMPERATURE 96.6 03/01/2024 09:54:11 [facility] PULSE 86 03/01/2024 09:54:11 [facility] SYSTOLIC BLOOD PRESSURE 121 09/27/19 24 09:45:49 [facility] [place] DIASTOLIC BLOOD PRESSURE 83 024 09:45:49 [facility] [place] [facility] PULSE OXIMETRY 96 09/27/2023 09:45:49 [facility] WEIGHT 221 09/27/2023 09:45:49 [facility] BMI 28 kg/m2 09/27/2023 09:45:49 [facility] PAIN 0 09/27/2023 09:45:49 [facility] TEMPERATURE 98.4 09/27/2023 09:45:49 [facility] PULSE 90 09/27/2023 09:45:49 [facility] RESPIRATION 16 09/27/2023 09:45:49 [facility] [place] [facility] Encounters Combined list of: 1) Encounters from Department of Veterans Affairs facilities going backup to the last 18 months, not all VA inpatient encounters are included; 2) Encounters from the Department of Defense facilities going backup to 280 months. Location Location Details Encounter Type Encounter Number Reason For Visit Attending Provider ADM Date DC Date Status Disposition Source [facility] En[facility] [id number] 01/16 [facility] [id number] 01/17 [facility] [id number] 01/17 [facility] [id number] 02/05 [facility] [id number] 02/13 [facility] En[facility] [id number] 02/14 [facility] EYE EXAM&TX ESTAB PT 1/>VST [id number] Diagnos is: ICD-10- CM E11.9 Type 2 diabete s mellitu s without complic ations CRESENCIO PABON 02/17 [facility] FIT SPECTACLES MULTIFOCAL [id number] Diagnos is: ICD-10- CM Z46.0 Encount er for fit/adj st of spectac les and contact lenses MEKHI HOUSE 02/17 [facility] En[facility] [id number] 02/22 [facility] En[facility] [id number] 02/22 [facility] En[facility] [id number] 03/06 [facility] En[facility] [id number] 06/19 [facility] En[facility] [id number] 06/19 [facility] En[facility] [id number] 06/20 [facility] En[facility] [id number] 06/21 [facility] En[facility] [id number] 06/21 [facility] Encounter [id number] 06/22 [facility] En[facility] [id number] PATSY GUALLPA E 06/27 [facility] [place] OFF[facility] O/P EST MOD 30 MIN [id number] Diagnos is: ICD-10- CM F43.23 Adjustm ent disorde r with mixed anxiety and depress ed mood YESENIA NOBLE 06/28 [place] [facility] OFF[facility] O/P EST HI 40 MIN [id number] 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, unsp FURCOPATSY CHRISTIANSON NA 06/29 [facility] En[facility] [id number] 06/29 [facility] HEARING AID FITTING/CH ECKING [id number] Diagnos is: ICD-10- CM Z46.1 Encount er for fitting and adjustm ent of hearing aid Derrell HORNE 07/03 [facility] Outpatient Encounter [id number] 07/03 [facility] [place] Outpatient Encounter [id number] Diagnos is: ICD-10- CM G47.33 Obstruc tive sleep apnea (adult) (pediat sara) KENISHA SORIANO 07/11 [place] [facility] Outpatient Encounter [id number] 07/12 [place] [facility] En[facility] [id number] PATSY GUALLPA 07/24 [facility] HEARING AID EXAM BOTH EARS [id number] Diagnos is: ICD-10- CM H90.3 Sensori neural hearing loss, bilater al CAROLINE RAYO 07/25 [facility] Outpatient Encounter [id number] 08/07 [facility] OFFICE O/P EST MOD 30 MIN [id number] Diagnos is: ICD-10- CM F43.23 Adjustm ent disorde r with mixed anxiety and depress ed mood YESENIA NOBLE 08/08 [place] [facility] Outpatient Encounter [id number] 08/08 [facility]ARING SERVICE [id number] Diagnos is: ICD-10- CM Z46.1 Encount er for fitting and adjustm ent of hearing aid Derrell HORNE 08/17 [facility] Out[facility] Encounter [id number] PATSY GUALLPA 08/20 [facility] HEARING AID FITTING/CH ECKING [id number] Diagnos is: ICD-10- CM Z46.1 Encount er for fitting and adjustm ent of hearing aid CAROLINE RAYO 08/23 [facility] Outpatient Encounter [id number] 08/27 [facility] Outpatient Encounter [id number] ERNIE HARDEN 08/28 [facility] HC PRO PHONE CALL 11-20 MIN [id number] Diagnos is: ICD-10- CM G47.33 Obstruc tive sleep apnea (adult) (pediat sara) Karl PERSAUD 08/28 [place] [facility] Outpatient Encounter [id number] 09/04 [facility] FEE [id number] Diagnos is: ICD-10- CM G47.33 Obstruc tive sleep apnea (adult) ([facility]) LEANNA PRESTON 09/04 [place] [facility] Outpatient Encounter [id number] Emilee GOODWIN 09/06 [facility] Outpatient Encounter [id number] 09/10 [facility] THERAPE[facility]IC CONSULT[facility] STDY UNATTENDED [id number] Diagnos is: ICD-10- CM G47.33 Obstruc tive sleep apnea (adult) (pediat sara) MODE BROOKS 09/11 [place] [place] [facility] Outpatient Encounter [id number] Emilee GOODWIN 09/12 [facility] [facility] Outpatient Encounter [id number] JONES LIZAMA 09/20 [facility] ORTHC/PROS TC MGMT SBSQ ENC [id number] Diagnos is: ICD-10- CM M21.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, not elsewhe re classif ied, unspeci fied knee Olivia OBREGON 09/21 [facility] En[facility] [id number] 09/24 [facility] Outpatient Encounter [id number] ERNIE HARDEN 09/24 [facility] OFFICE O/P EST MOD 30 MIN [id number] 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, unsp FURCOLO,TI NA 09/26 [facility] Outpatient Encounter [id number] 10/02 [facility] Outpatient Encounter [id number] Emilee GOODWIN 10/02 [facility] Encounter [id number] 10/12 [facility] Encounter [id number] 10/12 [facility] Encounter [id number] Emilee GOODWIN 10/15 [facility] Encounter [id number] Emilee GOODWIN 10/17 [facility] ORTHC/PROS TC MGMT SBSQ ENC [id number] Diagnos is: ICD-10- CM M21.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, not elsewhe re classif ied, unspeci fied knee Olivia OBREGON 10/17 [facility] Outpatient Encounter [id number] Diagnos is: ICD-10- CM G47.30 Sleep apnea, unspeci fied KENISHA SORIANO 10/25 [place] [facility] Outpatient Encounter [id number] 11/01 [facility] OFFICE O/P EST MOD 30 MIN [id number] Diagnos is: ICD-10- CM F43.23 Adjustm ent disorde r with mixed anxiety and depress ed mood YESENIA NOBLE 11/08 [place] [facility] Outpatient Encounter [id number] 12/21 [facility] Encounter [id number] 01/31 [facility] Encounter [id number] 02/01 [facility] Encounter [id number] 02/05 [facility] Encounter [id number] Emilee GOODWIN E 02/07 [facility] OFFICE O/P EST MOD 30 MIN [id number] Diagnos is: ICD-10- CM F43.23 Adjustm ent disorde r with mixed anxiety and depress ed mood YESENIA NOBLE 02/08 [place] [facility] Out[facility] Encounter [id number] 1. Emilee GOODWIN E 02/08 [facility] Encounter [id number] 02/11 [facility] Out[facility] Encounter [id number] 02/13 [facility] COMPRE OPH EXAM EST PT 1/> [id number] Diagnos is: ICD-10- CM E11.9 Type 2 diabete s mellitu s without complic ations CRESENCIO PABON E 02/18 [facility] FIT SPECTACLES MULTIFOCAL [id number] 1. Diagnos is: ICD-10- CM Z46.0 Encount er for fit/adj st of spectac les and contact lenses MEKHI HOUSE 02/20 [facility] [place] [place] [facility] Outpatient Encounter [id number] 1.02/25 [facility] [place] [place] [facility] OFFICE O/P EST LOW 20 MIN [id number] Diagnos is: ICD-10- CM G47.33 Obstruc tive sleep apnea (adult) (pediat sara) LONNIE MOORE 03/01 [place] [facility] Outpatient Encounter [id number] 1.03/14 [facility] [place] [facility] Outpatient Encounter [id number] 1.03/14 [facility] [place] [facility] OFFICE O/P EST MOD 30 MIN [id number] 1. 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, unsp FURCOLO,TI NA 03/14 [facility] [place] [place] [facility] ELECTROCAR DIOGRAM REPORT [id number] Diagnos is: ICD-10- CM Z13.6 Encount er for screeni ng for cardiov ascular disorde rs HERMES MANE 03/14 [place] [facility] Outpatient Encounter [id number] 1.03/15 [facility] [place] [facility] [place] Outpatient Encounter [id number] ERNIE HARDEN 03/21 [facility] [place] [facility] Outpatient Encounter [id number] SOUTHSixtoFannyMATIAS PRATTA 03/21 [place] [facility] FIT SPECTACLES MULTIFOCAL [id number] Diagnos is: ICD-10- CM Z46.0 Encount er for fit/adj st of spectac les and contact lenses AGUSTIN FERREIRA 03/27 [facility] Encounter [id number] 04/04 [facility] Out[facility] Encounter [id number] [facility] Out[facility] Encounter [id number] 04/11 [facility] Out[facility] Encounter [id number] Emilee GOODWIN 04/15 [facility] [place] [facility] Out[facility] Encounter [id number] ERNIE HRADEN 04/22 [facility] [place] [facility] Out[facility] Encounter [id number] 04/29 [facility] [place] [place] [facility] POS AIRWAY PRESSURE CPAP [id number] Diagnos is: ICD-10- CM G47.33 Obstruc tive sleep apnea (adult) (pediat sara) MODE BROOKS 05/03 [place] [facility]P EST MOD 30 MIN [id number] Diagnos is: ICD-10- CM F43.23 Adjustm ent disorde r with mixed anxiety and depress ed mood YESENIA NOBLE 05/10 [facility] [place] [facility] Out[facility] Encounter [id number] 05/11 [facility] Outpatient Encounter [id number] 06/03 [facility] Outpatient Encounter [id number] ERNIE HARDEN 06/13 [facility] CASE MANAGEMENT [id number] TIFFANIE MONROE L 06/13 [facility] Outpatient Encounter [id number] YOMI DONALD LLSammy L 06/14 [facility] Outpatient Encounter [id number] YOMI DONALD L 06/14 [facility] Outpatient Encounter [id number] TAMEKA SALCIDO P 06/21 [facility] [place] [place] [facility] Social History Combined list of available smoking, tobacco, and other social history from Department of Defense and Veterans Affairs facilities. Social History Type Response Date Comment Source Tobacco smoking status WAIS VA-TOBACCO USER SOME DAYS 06/22/2023 [facility] [place] [facility] History of tobacco use VA-TOBACCO DOESNT USE WI 30 MIN WAKEUP 06/22/2023 [facility] [place] [facility] History of tobacco use VA-TOBACCO NEVER USED 01/13/2022 [facility] History of tobacco use GA-TOBACCO NEVER USED 10/23/2020 [facility] History of tobacco use GA-TOBACCO FORMER USER 09/12/2019 [facility] History of tobacco use GA-TOBACCO USER SOME DAYS 09/24/2018 [facility] History of tobacco use LIFETIME NON-TOBACCO USER 05/04/2017 [facility] History of tobacco use LIFETIME NON-TOBACCO USER 05/31/2016 [facility] History of tobacco use QUIT TOBACCO USE > 7 YEARS AGO 06/04/2015 [id number] smoked [facility] History of tobacco use CURRENT SMOKER 05/11/2015 1 cigar qomonth [facility] History of tobacco use QUIT TOBACCO USE > 7 YEARS AGO 07/06/2009 [facility] Plan of Care List of future care activities from Department of [facility] Affairs facilities. Additional future care activities may be listed in the Assessment and Plan section. Date/Time Care Activity Care Activity Detail Facili ty 07/11/2024 AMBULATORY - NONE AMBULATORY - NONE [facility] 08/02/2024 AMBULATORY - MEDICINE AMBULATORY - MEDICI [facility] 08/09/2024 AMBULATORY - PSYCHIATRY [facility] Advance Directives List of completed, amended, or rescinded Advance Directives on record at Department of [facility] facilities. An actual copy of the Directive is not included. Date Advance Directive Provider Source 06/29/2023 ADVANCE DIRECTIVE JAMES GALLO [facility] 09/19/2017 ADVANCE DIRECTIVE DINA MCGINNIS [facility]
--- OUTSIDE RECORDS SUMMARY | 2024-07-11 10:43 | XMS_ITS ---
Author Name [facility] [place] Address [address] [place] [address] Care Team Providers Care De Icer Installer Name Role Phone ARIEL JIMENEZ Primary Care [...] Parra's Name Patient's Relationship to Policy Parra [facility] Dec 19, 2015 [id number] [employer] PATIENT [facility] Dec 19, 2015 [id number] [employer] PATIENT [facility] May 29, 2012 [id number] [employer] PATIENT Selected Encounter This section includes the information on record at [place] for the Encounter. Date/Time Encounter Type Encounter Description Reason Provider Source Jun 13, 2024 09:14 AM Outpatient Encounter PRIMARY CARE/MEDICINE JAXSON HRADEN Encounter Template Text not used by [place] Plan of Treatment: Future Appointments (+ 6 months) and Future Tests (+/- 45 days) The Plan of Treatment section includes future care activities for the patient from all [place] treatmentfacilities. This section includes future appointments and [...] 11, 2024 10:30 AM AMBULATORY - NONE [place] [facility] [place] [facility] Aug 02, 2024 10:00 AM AMBULATORY - [place]ICINE [place] [facility] Aug 09, 2024 09:00 AM AMBULATORY - PSYCHIATRY [facility] Social History: Smoking Status (Most current) [...] VA-TOBACCO DOESNT USE WI 30 MIN WAKEUP [place] [facility] Tobacco Use History This section includes a history of the smoking, or tobacco-related health factors, that were collected on or before the date of the Encounter. The data comes from the [place] facility where the Encounter took place. Date/Time Smoking Status/Tobacco Use Comment F acility Jun 22, 2023 09:00 AM VA-TOBACCO USE 30 YEARS OR MORE [place] [facility] [place] [facility] Jun 22, 2023 09:00 AM VA-TOBACCO USE ADVICE [place] [facility] [place] [facility] Jun 22, 2023 09:00 AM VA-TOBACCO USE FRONT OFFICE ASSISTANT NO [facility] [place] [facility] Jun 22, 2023 09:00 AM VA-TOBACCO USE MED NO [place] [facility] [place] [place] [facility] Jun 22, 2023 09:00 AM VA-TOBACCO USER SOME DAYS [place] [facility] [place] [facility] Jan 13, 2022 02:00 PM VA-TOBACCO NEVER USED [place] [facility] Jul 06, 2009 03:46 PM QUIT TOBACCO USE > 7 YEARS AGO [facility] Advance Directives: All historical and [...] Provider Source Jun 29, 2023 ADVANCE DIRECTIVE GLALO,KIM M [facility] Sep 19, 2017 ADVANCE DIRECTIVE DINA MCGINNIS [facility] Encounter Notes: All associated encounter notes This section contains the clinical notes associated to the Encounter. 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 Would you please be so kind as to connect me with that person? Thank you, Vijay ------Original Message ------ Sent: 06/13/2024 09:14 AM ET From: JAXSON HARDEN To: LAKESHA SQUIRES Subject: General:Community Fabric Awning Repairer Lorena Our traveling vet coordinator is Selena Medina, her number is [phone] ext [phone]. Dinah Primary care // JAXSON HARDEN LPN License Practical Nurse Signed: 06/13/2024 09:14 JAXSON HARDEN [facility]
--- OUTSIDE RECORDS SUMMARY | 2024-07-11 10:43 | XMS_ITS | Encounter Summary ---
Author Name [facility] [place] Address [address] [place] [address] Care Team Providers Care Application Performance Engineer Name Role Phone ARIEL JIMENEZ Primary Care Provider Ismale patel Insurance Providers: All historical and current [...] Patient's Relationship to Policy Parra [facility] Dec 19, 2015 [id number] [employer] PATIENT [facility] Dec 19, 2015 [id number] [employer] PATIENT [facility] May 29, 2012 [id number] [employer] PATIENT Selected Encounter This section includes the information on record at [place] for the Encounter. Date/Time Encounter Type Encounter Description Reason Provider Source May 03, 2024 10:00 AM POS AIRWAY PRESSURE CPAP SLEEP MEDICINE ICD-10-CM G47.33 Obstructive sleep apnea (adult) (pediatric) MODE BROOKS Encounter Template Text not used by [place] Assessments - Encounter Diagnoses This section includes the primary and secondary diagnoses documented for the Encounter. Date/Time Primary/Secondary Diagnosis Diagnosis Name Provider Source Jun 11, 2024 03:57 PM PRIMARY Obstructive sleep apnea (adult) (pediatric) CAMERON PAREDES [facility] Plan of Treatment: Future Appointments (+ 6 months) and Future Tests (+/- 45 days) The Plan of Treatment section includes future care activities for the patient [facility] [place] [facility] This section includes future appointments and [...] 11, 2024 10:30 AM AMBULATORY - NONE [facility] Aug 02, 2024 10:00 AM AMBULATORY - MEDICINE [facility] Aug 09, 2024 09:00 AM [...] of theEncounter. The data comes from all [place] treatment [facility]. Test Date/Time Test Type Test Details Facility Name Mar 25, 2024 12:57 PM Consult Order [facility] [employer] Driver's Choice [facility] Vital Signs: All taken on the encounter date This section contains inpatient and outpatient Vital Signs collected on the date of the Encounter. Date/Time Temperature Pulse Blood Pressure Respiratory Rate SP02 Pain Height Weight Body Mass Index Source May 03, 2024 09:39 AM 96.5 99 113/75 96 3 210.7 26 [facility] Advance Directives: All historical and current [...] 29, 2023 ADVANCE DIRECTIVE JAMES GALLO [facility] Sep 19, 2017 AD[facility]ANCE DIRECTIVE [facility]INA 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
--- OUTSIDE RECORDS SUMMARY | 2024-07-11 10:44 | XMS_ITS | Encounter Summary ---
Author Name [facility] [place] Address [address] [place] [address] Care Team Providers Care Salesperson Hosiery Name Role Phone ARIEL JIMENEZ Primary Care [...] Parra [facility] Dec 19, 2015 [id number] [employer] PATIENT [facility] Dec 19, 2015 [id number] [phone] [employer]AK[employer]HA [employer] PATIENT [facility] May 29, 2012 [id number] [employer] PATIENT Selected Encounter This section includes the information on record at [place] for the Encounter. Date/Time Encounter Type Encounter Description Reason Provider Source Jun 21, 2024 11:20 AM Outpatient Encounter PRIMARY CARE/MEDICINE CHILEL,SARAH P IHE Encounter Template Text not used by [place] Plan of Treatment: Future Appointments (+ 6 months) and Future Tests (+/- 45 days) The Plan of Treatment section includes future care activities for the patient from all [place] treatmentfacilities. This section includes future appointments and future orders which are active, pending or scheduled. Future Appointments This section includes appointments that were scheduled to occur 6 months from the date of the Encounter, up to a maximum of 20 appointments. The data comes from all [place] treatment facilities. Appointment Date/Time Appointment Type Appointme nt Facility Name Jul 11, 2024 10:30 AM AMBULATORY - NONE [facility] [place] [facility] Aug 02, 2024 10:00 AM AMBUL[place]ORY - [place]IC[place] [facility] Aug 09, 2024 09:00 AM AMBULATORY - PSYCHIATRY [facility] Social History: Smoking Status (Most current) and Tobacco Use (All prior to encounter date) This section includes the most current, and the historical, smoking and tobacco- related health factors from the [place] facility where the Encounter took place. Current Smoking Status This section includes the most current smoking, or tobacco-related health factor, from the [place] facility where the Encounter took place. Date/Time Current Smoking Status Comment Facil ity Jun 22, 2023 09:00 AM VA-TOBACCO DOESNT USE WI 30 MIN WAKEUP [place] [facility] [place] [facility] Tobacco Use History This section includes a history of the smoking, or tobacco-related health factors, that were collected on or before the date of the Encounter. The data comes from the [place] facility where the Encounter took place. 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 This section includes ALL of a patient's completed or amended [place] Advance and Rescinded Directives. The entries below indicate that a directive exists for the patient, but an actual copy is not included with this document. The data comes from all [place] facilities. Date Advance Directives Provider Source Jun 29, 2023 ADVANCE DIRECTIVE GALLO,KIM Olivia [facility] Sep 19, 2017 ADVANCE DIRECTIVE DINA MCGINNIS [facility] Encounter Notes: All associated encounter notes This section contains the clinical notes associated to the Encounter. Date/Time Encounter Note(s) Provider Source Jun 21, 2024 11:20 AM PRIMARY CARE [employer] MESSAGING: LOCAL TITLE: PRIMARY CARE SECURE MESSAGING STANDARD TITLE: PRIMARY CARE SECURE MESSAGING DATE OF NOTE: JUN 21, 2024@11:20 ENTRY DATE: JUN 21, 2024@11:20:33 AUTHOR: SARAH CHILEL EXP COSIGNER: URGENCY: STATUS: COMPLETED ------Original Message -------- Sent: 06/19/2024 01:20 PM ET From: LAKESHA SQUIRES To: Alex JIMENEZ _ PRIMARY CARE_[facility] Subject: Medication:Medication supplym Good Afternoon Doctor Naresh, After doing an inventory, it appears that I either miscounted initially or a bottle was hiding behind things of my Atorvastatin. Please see the attached list of meds on hand. I'm an supplied for 90 days from today on most. Thank you to you and your nurse for being efficient with my health care! Vijay Mayorga Med Count as of 06/19/24 Med Dose on handDay supply Metformin 500mg 2 [id number] Empagliflozin 10mg 1 DAILY [id number] Hydrochlorothiazide 5mg 1 daily [id number] Bupropion 150mg 1 [id number] Lisinopril 5mg 1 [id number] Atorvastatin 80mg ?? [id number] ------Original Message -------- Sent: 06/21/2024 11:20 AM ET From: SARAH CHILEL To: LAKESHA SQUIRES Subject: Medication:Medication supplym Great! thank you for letting us know. Please let us know if you need anything else Take Care Sarah Chilel RN /janine/ Sarah Chilel RN, BSN Primary Care Nurse Graduate Studies Dean Signed: 06/21/2024 11:20 SARAH CHILEL [place] [facility]
--- OUTSIDE RECORDS SUMMARY | 2024-07-11 10:44 | XMS_ITS | Encounter Summary ---
Author Name [facility] [place] Address [address] [place] [address] Care Team Providers Care Conservation Scientist Name Role Phone ARIEL JIMENEZ Primary Care [...] Name Patient's Relationship to Policy Parra [facility] Dec 19, 2015 [id number] TANA NGO PATIENT [facility] Dec 19, 2015 [id number] LAKESHA NGO PATIENT [facility] May 29, 2012 [id number] TANA [employer] PATIENT Selected Encounter This section includes the information on record at [place] for the Encounter. Date/Time Encounter Type Encounter Description Reason Provider Source Jun 14, 2024 02:04 PM Outpatient Encounter PRIMARY CARE/MEDICINE HANNA LAGOS Encounter Template Text not used by [place] Plan of Treatment: Future Appointments (+ 6 months) and Future Tests (+/- 45 days) The Plan of Treatment section includes future care activities for the patient from all [place] treatmentfacilities. This section includes future appointments and [...] AMBULATORY - NONE [place] [facility] Aug 02, 2024 10:00 AM AMBULATORY - MEDICINE CON[facility] [place] [facility] Aug 09, 2024 09:00 AM AMBULATORY - PSYCHIATRY [facility] Social History: Smoking Status (Most current) [...] VA-TOBACCO DOESNT USE WI 30 MIN WAKEUP [place] [facility] Tobacco Use History This section includes a history of the smoking, or tobacco-related health factors, that were collected on or before the date of the Encounter. The data comes from the [place] facility where the Encounter took place. Date/Time Smoking Status/Tobacco Use Comment F acility Jun 22, 2023 09:00 AM VA-TOBACCO USE 30 YEARS OR MORE [place] [facility] Jun 22, 2023 09:00 AM VA-TOBACCO USE ADVICE [place] [facility] Jun 22, 2023 09:00 AM VA-TOBACCO USE CARDIOVASCULAR SURGICAL TECH NO [place] [facility] Jun 22, 2023 09:00 AM VA-TOBACCO USE MED NO [place] [facility] Jun 22, 2023 09:00 AM VA-TOBACCO USER SOME DAYS [place] [facility] Jan 13, 2022 02:00 PM [facility]TOBACCO [facility]ED [place] [facility] Jul 06, 2009 03:46 PM QUIT TOBACCO USE > 7 YEARS AGO [facility] Advance Directives: All historical and current [...] [facility] Sep 19, 2017 ADVANCE DIRECTIVE DINA MCGINNIS [facility] Encounter Notes: All associated encounter notes This section contains the clinical notes associated to the Encounter. Date/Time Encounter Note(s) Provider Source Jun 18, 2024 09:17 AM PRIMARY CARE SECURE MESSAGING: LOCAL TITLE: PRIMARY CARE SECURE MESSAGING STANDARD TITLE: PRIMARY CARE SECURE MESSAGING DATE OF NOTE: JUN 18, 2024@09:17 ENTRY DATE: JUN 18, 2024@09:17:06 AUTHOR: JAXSON HARDEN EXP COSIGNER: URGENCY: STATUS: COMPLETED ------Original Message -- Sent: 06/14/2024 03:49 PM ET From: LAKESHA SQUIRES To: Alex JIMENEZ _ PRIMARY CARE_[facility] Subject: Medication:90 Day Scripts Hello Hanna, Unless there is an error on the pharmacy's end, a bottle of Atorvastatin was lost in the mail. When I get home tomorrow, I will send you and an inventory of what I have on hand. Thank you, Vijay ------Original Message -- Sent: 06/18/2024 09:17 AM ET From: JAXSON HARDEN To: LAKESHA SQUIRES Subject: Medication:90 Day Scripts Hello Please let us know what you need. Looks like atorvastatin was delivered on 06/01/24 Dinah Primary care // JAXSON HARDEN LPN License Practical Nurse Signed: 06/18/2024 09:17 JAXSON AHRDEN [place] 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 I will be doing a list/count of remaining medications. I will have that for Monday. Would you be able to renew scripts to get me out past july please? Which pharmacy should I go to, [place] or [facility]? Thank you, Vijay ------Original Message -- Sent: 06/14/2024 02:04 PM ET From: HANNA LAGOS To: LAKESHA SQUIRES Subject: Medication:90 Day Scripts Hood Linares, I looked at your medication list. Atorvastatin due to be mailed on 08/27. Lisinopril due to be mailed on 08/27. Ozempic due to be mailed on 08/21. Empagliflozin due to be mailed on 08/29. Looks like your Hydrochlorothiazide will be in need of renewal on 07/31. Bupropion- mailing on 07/10/24. We can renew the Hydrochlorothiazide for window knot picker cloth at the pharmacy window and Bupropion, I will add Dr. Shook request early knot picker cloth due to you leaving on deployment with [employer]. Does this sound correct to you? Please let us know? Either pharmacy [place] or [facility]. Which is better for you? Hanna Lagos, home care liaison/Women's health team nurse // HANNA LAGOS, MSN, RN, CNL PRIMARY CARE TEAM NURSE Signed: 06/14/2024 14:04 HANNA LAGOS [facility]
--- OUTSIDE RECORDS SUMMARY | 2024-07-11 10:44 | XMS_ITS | Encounter Summary ---
Author Name [facility] [place] Address [address] [place] [address] Care Team Providers Care Building Rigger Name Role Phone ARIEL INFANTE Primary Care [...] Parra's Name Patient's Relationship to Policy Parra [facility] Dec 19, 2015 [id number] [phone] TANA NGO PATIENT [facility] Dec 19, 2015 [id number] LAKESHA NGO PATIENT [facility] May 29, 2012 [id number] TANA [employer] PATIENT Selected Encounter This section includes the information on record at [place] for the Encounter. Date/Time Encounter Type Encounter Description Reason Provider Source Jun 13, 2024 02:41 PM CASE MANAGEMENT ADMIN PAT ACTIVTIES (MASNONCT) SELENA MEDINA Sammy Encounter Template Text not used by [place] Plan of Treatment: Future Appointments (+ 6 months) and Future Tests (+/- 45 days) The Plan of Treatment section includes future care activities for the patient from all [place] [facility]. This section includes future appointments [...] AMBULATORY - NONE [place] [facility] Aug 02, 2024 10:00 AM AMBULATORY - MEDICINE [place] [facility] Aug 09, 2024 09:00 AM AMBULATORY - PSYCHIATRY [facility] Social History: Smoking Status (Most current) and Tobacco Use (All prior to encounter date) This section includes the most current, and the historical, smoking and tobacco- related health factors from the [place] facility where the Encounter took place. Current Smoking Status This section includes the most current smoking, or tobacco-related health factor, from the [place] facility where the Encounter took place. Date/Time Current Smoking Status Comment Facil ity Jun 22, 2023 09:00 AM VA-TOBACCO DOESNT USE WI 30 MIN WAKEUP [place] [facility] Tobacco Use History This section includes a history of the smoking, or tobacco-related health factors, that were collected on or before the date of the Encounter. The data comes from the [place] facility where the Encounter took place. Date/Time Smoking Status/Tobacco Use Comment F acility Jun 22, 2023 09:00 AM VA-TOBACCO USE 30 YEARS OR MORE [place] [facility] Jun 22, 2023 09:00 AM VA-TOBACCO USE ADVICE [place] [facility] Jun 22, 2023 09:00 AM VA-TOBACCO USE RN DIABETES NO [place] [facility] Jun 22, 2023 09:00 AM VA-TOBACCO USE MED NO [place] [facility] Jun 22, 2023 09:00 AM VA-TOBACCO USER SOME DAYS [place] [facility] Jan 13, 2022 02:00 PM VA-TOBACCO NEVER USED [place] [facility] [place] [facility] Jul 06, 2009 03:46 PM QUIT TOBACCO USE > 7 YEARS AGO [facility] Advance Directives: All historical and current [...] Jun 29, 2023 ADVANCE DIRECTIVE JAMES GALLO [facility] Sep 19, 2017 ADVANCE DIRECTIVE DINA MCGINNIS [facility] Encounter Notes: All associated encounter notes This section contains the clinical notes associated to the Encounter. Date/Time Encounter Note(s) Provider Source Jun 13, 2024 02:41 PM NURSING NOTE: LOCAL TITLE: PCMM/TRAVELING COORDINATOR STANDARD TITLE: NURSING NOTE DATE OF NOTE: JUN 13, 2024@14:41 ENTRY DATE: JUN 13, 2024@14:41:18 AUTHOR: SELENA MEDINA COSIGNER: URGENCY: STATUS: COMPLETED Notification:Phone Call VA Referral received from: [facility]: unknown at this time Requesting Provider:[place] Primary Care Provider:Edgar Infante Reason for referral: clinical indication:(Narrative) seeking information regarding TRV program as he will be likely traveling for [employer] Relocation Education: Provided guidance and instructions for obtaining temporary supplies and refill medications. , Described the roles and responsibilities of the TVC., Clarified the roles and responsibilities of the TVC role at [facility] and [facility] facilities. Notified TVC at [facility] Facility? No Narrative Note: [place] wanting to know how to obtain VA care when traveling outside of home VA. Has a new job with [employer] so no deployment has been set. Encouraged the Vet to do the followin. Make sure you have an adequate supply of meds- ideally 3 months worth 2. When at your destination, contact closest VA and speak with enrollment to enroll you at the VA. 3. Notify home VA of destination so it can be added in temporary address spot in demographics so that pharmacy can send medications 4. [place] provided [facility] phone number for further questions/concerns/needs /es/ Selena Medina MSN,RN,[facility] TRANSFER/TRAVELING COORDINATOR Signed: 06/13/2024 14:47 SELENA MEDINA [place] CN[facility]
--- OUTSIDE RECORDS SUMMARY | 2024-07-11 10:44 | XMS_ITS | Encounter Summary ---
Author Name [facility] [place] Organization [place] Address [address] [place] [address] Care Team Providers Care Bank Reconciliator Name Role Phone ARIEL JIMENEZ Primary Care [...] Parra's Name Patient's Relationship to Policy Parra [facility] Dec 19, 2015 [id number] TANA NGO PATIENT [facility] Dec 19, 2015 [id number] LAKESHA NGO PATIENT [facility] May 29, 2012 [id number] TANA [employer] PATIENT Selected Encounter This section includes the information on record at [place] for the Encounter. Date/Time Encounter Type Encounter Description Reason Provider Source Jun 14, 2024 02:05 PM Outpatient Encounter PRIMARY CARE/MEDICINE OLESYA DONALD Encounter Template Text not used by [place] Plan of Treatment: Future Appointments (+ 6 months) and Future Tests (+/- 45 days) The Plan of Treatment section includes future care activities for the patient from all [place] treatmentfacilities. This section includes future appointments and [...] AMBULATORY - NONE [place] [facility] Aug 02, 2024 10:00 AM AMBULATORY - [place]ICINE [place] [facility] Aug 09, 2024 09:00 AM AMBULATORY - PSYCHIATRY [facility] Social History: Smoking Status (Most current) [...] VA-TOBACCO DOESNT USE WI 30 MIN WAKEUP [place] [facility] Tobacco Use History This section includes a history of the smoking, or tobacco-related health factors, that were collected on or before the date of the Encounter. The data comes from the [place] facility where the Encounter took place. Date/Time Smoking Status/Tobacco Use Comment F acility Jun 22, 2023 09:00 AM VA-TOBACCO USE 30 YEARS OR MORE [place] [facility] Jun 22, 2023 09:00 AM VA-TOBACCO USE ADVICE [place] [facility] Jun 22, 2023 09:00 AM VA-TOBACCO USE FORMS ANALYSIS MANAGER NO [place] [facility] Jun 22, 2023 09:00 AM VA-TOBACCO USE MED NO [place] [facility] Jun 22, 2023 09:00 AM VA-TOBACCO USER SOME DAYS [place] [facility] Jan 13, 2022 02:00 PM VA-TOBACCO NEVER USED [place] [facility], [facility] 03:46 PM QUIT TOBACCO USE > 7 YEARS AGO [facility] Advance Directives: All historical and current [...] 2023 ADVANCE DIRECTIVE JAMES GALLO [facility] Sep 19, 2017 ADVANCE DIRECTIVE DINA MCGINNIS [facility] Encounter Notes: All associated encounter notes This section contains the clinical notes associated to the Encounter. Date/Time Encounter Note(s) Provider Source Jun 14, 2024 02:05 PM PRIMARY CARE SECUR E MESSAGING: LOCAL TITLE: PRIMARY CARE SECURE MESSAGING STANDARD TITLE: PRIMARY CARE SECURE MESSAGING DATE OF NOTE: JUN 14, 2024@14:05 ENTRY DATE: JUN 14, 2024@14:05:39 AUTHOR: OLESYA DONALD EXP COSIGNER: URGENCY: STATUS: COMPLETED ------Original Message ------- Sent: 06/13/2024 02:40 PM ET From: LAKESHA SQUIRES To: Alex JIMENEZ _ PRIMARY CARE_[facility] Subject: General:Traveling Nurse Good Afternoon, Please forward to Selena Medina RN, so she can reply and respond, and end up on my drop down list. Thank you, Vijay /janine/ OLESYA DONALD, MOIZ, RN, CNL PRIMARY CARE TEAM NURSE Signed: 06/14/2024 14:05 Receipt Acknowledged By: 06/18/2024 14:50 /janine/ Selena ROCKWELL,RN,[facility] TRANSFER/TRAVELING COORDINATOR OLESYA DONALD [facility]
== END 2024-07-11 10:33 | disposition home or self-care (01) ==
PROVIDERS: PCP Internal Medicine; Visit Provider Orthopaedic Surgery
DX: Z47.89 Encounter for other orthopedic aftercare (principal); Z96.651 Presence of right artificial knee joint
CPT/HCPCS: 99213

== ENCOUNTER → 2024-07-11 10:00 | Outpatient (BNVA) | payer OTHER, SELFPAY | PROVIDERS: PCP Internal Medicine; Visit Provider Orthopaedic Surgery | DX: Z47.1 Aftercare following joint replacement surgery (principal); Z96.651 Presence of right artificial knee joint | CPT/HCPCS: 99212 ==

== ENCOUNTER 2024-10-17 08:01 | Outpatient (AMB) | payer OTHER, SELFPAY ==
--- OUTSIDE RECORDS SUMMARY | 2024-10-17 08:03 | XMS_ITS | Encounter Summary ---
Author Name [facility] [place] Address [address] [place] [address] Care Team Providers Care Promotions Coordinator Name Role Phone ARIEL JIMENEZ Primary Care [...] Parra's Name Patient's Relationship to Policy Parra [facility] Dec 19, 2015 [id number] LAKESHA NGO PATIENT [facility] May 29, 2012 [id number] [phone] TANA NGO PATIENT [facility] May 29, 2023 [id number] [phone] TANA NGO SPOUSE [facility] May 29, 2023 [facility] [id number] [phone] TANA NGO SPOUSE Selected Encounter This section includes the information on record at [place] for the Encounter. Date/Time Encounter Type Encounter Description Reason Provider Source Aug 16, 2024 11:00 AM OFFICE O/P EST MOD 30 MIN SLEEP MEDICINE ICD-10-CM G47.33 Obstructive sleep apnea (adult) (pediatric) WESLEY MOORE IHSammy Encounter Template Text not used by [place] Assessments - Encounter Diagnoses This section includes the primary and secondary diagnoses documented for the Encounter. Date/Time Primary/Secondary Diagnosis Diagnosis Name Provider Source Sep 03, 2024 09:09 PM PRIMARY Obstructive sleep apnea (adult) (pediatric) MANDA MAST [facility] Plan of Treatment: Future Appointments (+ 6 months) and Future Tests (+/- 45 days) The Plan of Treatment section includes future care activities for the patient from all [place] [facility]. This section includes future appointments and future orders which are active, pending or scheduled. Future Appointments This section includes appointments that were scheduled to occur 6 months from the date of the Encounter, up to a maximum of 20 appointments. The data comes from all [place] treatment facilities. Appointment Date/Time Appointment Type Appointme nt Facility Name October 07, 2024 01:00 PM AMBULATORY - MEDICINE [place] N[place] [facility] [facility] Nov 08, 2024 09:00 AM AMBULATORY - PSYCHIATRY [facility] Nov 15, 2024 08:30 AM [facility] Jan 31, 2025 07:30 PM AMBULATORY MEDICINE [facility] Active, Pending, and Scheduled Orders This section includes a listing of several types of active, pending, and scheduled orders, including clinic medications orders, diagnostic test orders, procedure orders and consult orders; where the start date of the order is 45 days before the date of the Encounter or 45 days after the date of theEncounter. The data comes from all [place] treatment [facility]. Test Date/Time Test Type Test Details Facility Name Aug 16, 2024 11:23 AM Consult Order [facility] OUTPT Cons Desk Assistant's Choice [facility] Vital Signs: All taken on the encounter date This section contains inpatient and outpatient Vital Signs collected on the date of the Encounter. Date/Time Temperature Pulse Blood Pressure Respiratory Rate SP02 Pain Height Weight Body Mass Index Source Aug 16, 2024 10:44 AM 96.6 86 125/80 98 0 218 27 [facility] Advance Directives: All historical and current [...] Jun 29, 2023 ADVANCE DIRECTIVE GALLO,KIM M [facility] Sep 19, 2017 ADVANCE DIRECTIVE RASDINA BC [facility] Encounter Notes: All associated encounter notes This section contains the clinical notes associated to the Encounter. Date/Time Encounter Note(s) Provider Source Aug 16, 2024 10:54 AM SLEEP MEDICINE NOT E: LOCAL TITLE: SLEEP DISORDER FOLLOW-UP NOTE STANDARD TITLE: SLEEP MEDICINE NOTE DATE OF NOTE: AUG 16, 2024@10:54 ENTRY DATE: AUG 16, 2024@10:54:25 AUTHOR: MANDA MAST EXP COSIGNER: LONNIE MOORE URGENCY: STATUS: COMPLETED SLEEP FOLLOW-UP NOTE HPI: Lakesha Squires Jr is a 58 MALE with HTN, DM2, Depression, HLD and severe ARLETH s/p HNS implant (04/2020), here for follow-up Last Seen in April 2024 At that visit, the patient was recommended to continue at a voltage of 1.6V. Of note, the patient did have an HST in August 2023 with the HNS activated, but had residual AHI of 36.1/hr. Of note, the patient states he was about 40 pounds heavier at that time and has continued to lose weight since August. 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 This study showed an overall pAHI-3% of 36.1/hr, SpO2 long of 68%, and mean oxygen saturation of 92% with oxygen saturation <90% observed for 32 minutes (8%). - Snoring was >50db for 3.5% of TVST. - Study demonstrated adequate sampling of recording time with sufficient technical quality. Sleep study data-2005: SEVERE Obstructive Sleep Apnea Syndrome: The patient [...] data: reviewed see HPI Current settings Amplitude: 1.5 V Prior amplitude: 1.0-2.0 v Electrodes: +/-/+ Pulse width: 90 microseconds Rate: 33 hz Start delay: 30 Minutes Pause time: 10 minutes Therapy duration: 10 hours Changes made today: Set Voltage changed from 1.6V to 1.5V ASSESSMENT AND PLAN Lakesha Green Tavia Phillips is a 58 MALE with HTN, DM2, Depression, HLD and severe ARLETH s/p HNS implant (04/2020), here for follow-up Patient continues to do well with his HNS device. He reports that at 1.5V he is most comfortable. In general his symptoms have continued to improve with consistent HNS use. He reports that he has continued to focus on weight loss which has also improved his symptoms. #Severe ARLETH s/p HNS implant -Changes to HNS are described above, continue 1.5 V (range of 1.0 V to 2.0 V) -Consider repeat sleep study with inspire titration -RTC in 3-4 months after PSG This patient was discussed with Dr. Tellez Thank you for involving us in his care /janine/ MANDA MAST MD FELLOW Signed: 08/16/2024 11:49 /janine/ LONNIE MOORE MD ATTENDING Cosigned: 08/19/2024 10:39 MANDA MAST [facility] Aug 16, 2024 10:46 AM NURSING NOTE: LOCAL TITLE: SPECIALTY CLINIC PREVENTIVE HEALTH ASSESSMENT STANDARD TITLE: NURSING NOTE DATE OF NOTE: AUG 16, 2024@10:46 ENTRY DATE: AUG 16, 2024@10:46:21 AUTHOR: LEEANN CHANDLER MA EXP COSIGNER: URGENCY: STATUS: COMPLETED Suicide Screen: C-SSRS Screening [place]-Suicide Severity Rating Scale (C-SSRS Screener) 1. Over the past month, have you [...] required due to responses to other questions. /janine/ LEEANN CHANDLER LPN LICENSED PRACTICAL NURSE Signed: 08/16/2024 10:46 LEEANN CHANDLER [facility]
--- OUTSIDE RECORDS SUMMARY | 2024-10-17 08:03 | XMS_ITS | Encounter Summary ---
Author Name Department [place] Organization [place] Address [address] [place] [address] Care Team Providers Care Certified Optician Name Role Phone ARIEL JIMENEZ Primary Care [...] Parra's Name Patient's Relationship to Policy Parra [facility] Dec 19, 2015 [id number] LAKESHA NGO PATIENT [facility] May 29, 2012 [id number] TANA NGO PATIENT [facility] May 29, 2023 [id number] [phone] TANA NGO SPOUSE [facility] May 29, 2023 [facility] [id number] [phone] TANA NGO SPOUSE Selected Encounter This section includes the information on record at [place] for the Encounter. Date/Time Encounter Type Encounter Description Reason Provider Source October 15, 2024 10:47 AM Outpatient Encounter PRIMARY CARE/MEDICINE [facility] Encounter Template Text not used by [place] Plan of Treatment: Future Appointments (+ 6 months) and Future Tests (+/- 45 days) The Plan of Treatment section includes future care activities for the patient from all [place] [facility]. This section includes future appointments and future orders which are active, pending or scheduled. Future Appointments This section includes appointments that were scheduled to occur 6 months from the date of the Encounter, up to a maximum of 20 appointments. The data comes from all [place] treatment facilities. Appointment Date/Time Appointment Type Appointme Facility Name Nov 08, 2024 09:00 AM AMBULATORY - [facility]RY [facility] Nov 15, 2024 08:30 AM AMBULATORY - MEDICINE [facility] Jan 31, 2025 07:30 PM AMBULATORY - MEDICINE [facility] Active, Pending, and Scheduled Orders This section includes a listing of several types of active, pending, and scheduled orders, including clinic medications orders, diagnostic test orders, procedure orders and consult orders; where the start date of the order is 45 days before the date of the Encounter or 45 days after the date of theEncounter. The data comes from all [place] treatment facilities. Test Date/Time Test Type Test Details Facility Name October 04, 2024 08:04 AM Consult Order [facility] Cons Wet Finisher Wool's Choice [facility] Social History: Smoking Status (Most current) [...] 2023 09:00 AM VA-TOBACCO USER SOME DAYS [facility] Tobacco Use History This section includes a history of the smoking, or tobacco-related health factors, that were collected on or before the date of the Encounter. The data comes from the [place] facility where the Encounter took place. Date/Time Smoking Status/Tobacco Use Comment F acility Jun 22, 2023 09:00 AM VA-TOBACCO USE 30 YEARS OR MORE [facility] Jun 22, 2023 09:00 AM VA-TOBACCO USE ADVICE [facility] Jun 22, 2023 09:00 AM VA-TOBACCO USE HEART COORDINATOR NO [facility] Jun 22, 2023 09:00 AM VA-TOBACCO USE MED NO [facility] Jun 22, 2023 09:00 AM VA-TOBACCO USER SOME DAYS [facility] Jan 13, 2022 02:00 PM VA-TOBACCO NEVER USED [facility] Jul 06, 2009 03:46 PM QUIT TOBACCO USE > 7 YEARS AGO [facility] Advance Directives: All historical [...] Jun 29, 2023 ADVANCE DIRECTIVE JAMES GALLO [facility] Sep 19, 2017 ADVANCE DIRECTIVE DINA MCGINNIS [facility] Encounter Notes: All associated encounter notes This section contains the clinical notes associated to the Encounter. Date/Time Encounter Note(s) Provider Source October 15, 2024 12:10 PM PRIMARY CARE Chiasma E MESSAGING: LOCAL TITLE: PRIMARY CARE SECURE MESSAGING STANDARD TITLE: PRIMARY CARE SECURE MESSAGING DATE OF NOTE: OCTOBER 15, 2024@12:10 ENTRY DATE: OCTOBER 15, 2024@12:10:44 AUTHOR: JAXSON HARDEN EXP COSIGNER: URGENCY: STATUS: COMPLETED ------Original Message ----- Sent: 10/15/2024 11:05 AM ET From: LAKESHA SQUIRES To: Alex JIMENEZ _ PRIMARY CARE_[facility] Subject: General:Follow up Hello, No I did not. Thank you Vijay ------Original Message ----- Sent: 10/15/2024 12:10 PM ET From: JAXSON HARDEN To: LAKESHA SQUIRES Subject: General:Follow up Hello I apologize. I just checked with the pharmacy, triamcinolone cream is ready for you to be picked up at the pharmacy in [place]. Respectfully [facility] // JAXSON HARDEN LPN License Practical Nurse Signed: 10/15/2024 12:10 JAXSON HARDEN [facility] October 15, 2024 10:47 AM PRIMARY CARE AzuroUR Althea[employer]x MESSAGING: LOCAL TITLE: PRIMARY CARE SECURE MESSAGING STANDARD TITLE: PRIMARY CARE SECURE MESSAGING DATE OF NOTE: OCTOBER 15, 2024@10:47 ENTRY DATE: OCTOBER 15, 2024@10:47:31 AUTHOR: JAXSON HARDEN EXP COSIGNER: URGENCY: STATUS: COMPLETED ------Original Message ----- Sent: 10/15/2024 08:26 AM ET From: LAKESHA SQUIRES To: Alex JIMENEZ _ PRIMARY [facility] Subject: General:Follow up I am following up on my previous message regarding the itchy rash on my left leg. Thank you Vijay ------Original Message ----- Sent: 10/15/2024 10:47 AM ET From: JAXSON HARDEN To: LAKESHA SQUIRES Subject: General:Follow up Hello Please correct if I'm wrong, but it looks like you have picked up the prescription of the triamcinolone cream today . Respectfully [facility] /jeff HARDEN LPN License Practical Nurse Signed: 10/15/2024 10:47 JAXSON HARDEN [facility]etCUR[facility] CITYSmithers Avanza [facility]
--- OUTSIDE RECORDS SUMMARY | 2024-10-17 08:03 | XMS_ITS | Encounter Summary ---
Author Name Department of [place] Organization [place] Address [address] [place] [id number] Care Team Providers Care Log Loader Helper Name Role Phone ARIEL JIMENEZ Primary [...] Parra's Name Patient's Relationship to Policy Parra [facility] Dec 19, 2015 [id number] LAKESHA NGO PATIENT [facility] May 29, 2012 [id number] TANA NGO PATIENT [facility] ORGANIZAT [facility] HEALT H [facility] May 29, 2023 [id number] TANA NGO SPOUSE OPTUM RX PRESCRIPT ION [facility] May 29, [address] [facility] [id number] TANA NGO SPOUSE Selected Encounter This section includes the information on record at [place] for the Encounter. Date/Time Encounter Type Encounter Description Reason Provider Source May 10, 2024 08:30 AM OFFICE O/P EST MOD 30 MIN [facility]IC - IND ICD-10-CM F43.23 Adjustment disorder with mixed anxiety and depressed mood TIANNA NOBLE Encounter Template Text not used by [place] [...] activities for the patient from all [place] [facility]. This section includes future appointments [...] 2024 10:30 AM [facility] Aug 09, 2024 09:00 AM AMBULATORY - PSYCHIATRY [facility] Aug 16, 2024 11:00 AM AMBULATORY - MEDICINE [facility] October 07, 2024 01:00 PM [facility] - [facility] Nov 08, 2024 09:00 AM AMBULATORY - PSYCHIATRY [facility] Social History: Smoking Status (Most current) [...] place. Date/Time Current Smoking Status Comment Rosendo it October 23, 2020 01:00 PM [place]-TOBACCO NEVER USED [facility] Tobacco Use History This section includes a history of the smoking, or tobacco-related health factors, that were collected on or before the date of the Encounter. The data comes from the [place] facility where the Encounter took place. Date/Time Smoking Status/Tobacco Use Comment F acility Sep 12, 2019 04:13 PM VA-TOBACCO FORMER USER [facility] Sep 12, 2019 04:13 PM VA-TOBACCO QUIT 15 YRS OR MORE [facility] Sep 24, 2018 10:32 AM VA-TOBACCO DOESNT USE WI 30 MIN WAKEUP [facility] Sep 24, 2018 10:32 AM VA-TOBACCO USE > 1 5 LESS THAN 30 YEARS [facility] Sep 24, 2018 10:32 AM VA-TOBACCO USE ADVICE [facility] Sep 24, 2018 10:32 AM VA-TOBACCO USE MEMBER SERVICE SPECIALIST NO [facility] Sep 24, 2018 10:32 AM VA-TOBACCO USE MED NO [facility] Sep 24, 2018 10:32 AM VA-TOBACCO USER SOME DAYS [facility] May 04, 2017 11:25 AM LIFETIME NON-TOBACCO USER [facility] May 31, 2016 02:32 PM LIFETIME NON-TOBACCO USER [facility] Jun 04, 2015 09:46 AM QUIT TOBACCO USE > 7 YEARS AGO [email or web address] smoked [facility] May 11, 2015 02:01 PM CURRENT SMOKER 1 cigar qomonth [facility] Advance Directives: All historical and current Section [...] 29, 2023 ADVANCE DIRECTIVE JAMES GALLO [facility] Sep 19, 2017 ADVANCE DIRECTIVE DINA MCGINNIS [facility] Encounter Notes: All associated encounter notes This section contains the clinical notes associated to the Encounter. Date/Time Encounter Note(s) Provider Source May 10, 2024 08:25 AM TELEHEALTH NOTE: LOCAL TITLE: [place] VIDEO CONNECT PSYCHIATRIST NOTE STANDARD TITLE: TELEHEALTH NOTE DATE OF NOTE: MAY 10, 2024@08:25 ENTRY DATE: MAY 10, 2024@08:26:08 AUTHOR: TIANNA NOBLE EXP COSIGNER: URGENCY: STATUS: COMPLETED [place] VIDEO CONNECT PSYCHIATRIST NOTE Has ADDENDA Time [...] were prior to medication. He denies irritability. Venu is enjoying his group home. As noted, he is recovering from knee replacement surgery at [facility] in 04/10/24. Sleep is poor on many nights related to pain 2/2 surgery. 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 He feels it will improve his mood also. He discusses his relationship with his 10-year-old dog ( Tommy, nicknamed Dina ). His spread sheet for vacation this spring is full (Handseeing Information in August). He is looking forward to seeing the family at [place]. Venu was cooperative with questions asked. 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 He has talked about the [employer] wild [place] in [place]. 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 He is now seeing a chiropractor and feels that it is of some benefit. SUICIDE RISK ASSESSMENT: SUICIDE INQUIRY: IDEATION: Denies ideation. Do you currently have any homicidal ideation? No SUBSTANCE USE: alcohol--one to two drinks two to three times a week, on average. He sometimes drinks a few more. PSYCH MEDICATION HISTORY: Venu took one antidepressant about 10 years ago--he [...] the patient about their mental health condition. [place] repeated back the plan and education. IMPRESSION [...] maintenance. FOLLOW-UP: 12 weeks, sooner if needed REMINDERS:[place] Shijiebang ([facility]) Standard Documentation [facility] Clinician Resources Only: E911 (Emergency Call Relay Center): [phone] National Veterans Crisis Line - 984 then press #1. [facility] Suicide Coordinator [phone], Ext. [phone]; Back-up Ext. [phone] [place] Police, [place] [phone] Introduction: Visit is being conducted by [employer]. [place] identified with 2 identifiers: [X] Full Name [X] Date of [ ] VA ID Card Emergency Plan: [place] confirmed and/or provided the following information in case of emergency or technology failure. PATIENT PHONE - PHONE NUMBER [CELLULAR] - Is patient phone number correct, if not, enter below: [place]'s phone number: LAKESHA SQUIRES [address], [place], [address] 's present location and address for appointment: home [place]'s emergency contact name and phone number: see cover reported that location is private and safe: Yes Informed Consent: informed of the risks and benefits of Telehealth video care. [place] has the right to refuse video services. If refuses video visit, a [id number]-gp-[id number] visit will be scheduled. verbalized consent for this video visit: Yes [place] provided consent for any other persons present for visit: N/A If yes, who and relationship to patient: Secure visit: Visit was locked for security and privacy:Yes /janine/ TIANNA NOBLE DO Psychiatrist Signed: 05/10/2024 08:55 Receipt Acknowledged By: 05/10/2024 09:33 /janine/ ALBERTINA HIGH ADVANCED GRANITE SANDBLASTER APPRENTICE 05/10/2024 ADDENDUM STATUS: COMPLETED Medication Reconciliation: Outpatient: [...]
--- OUTSIDE RECORDS SUMMARY | 2024-10-17 08:03 | XMS_ITS | Encounter Summary ---
Author Name Department of Veter[place] Organization [place] Address [address] [place] [id number] Care Team Providers Care Assembler Chassis Name Role Phone ARIEL JIMENEZ Primary Care [...] Parra's Name Patient's Relationship to Policy Parra [facility] Dec 19, 2015 [id number] [phone] LAKESHA NGO PATIENT [facility] May 29, 2012 [id number] TANA NGO PATIENT [facility] ORGANIZAT [facility] HEALT H [facility] May 29, 2023 [id number] TANA NGO SPOUSE OPTUM RX PRESCRIPT ION [facility] May 29, 2023 [facility] [id number] [phone] TANA NGO SPOUSE Selected Encounter This section includes the information on record at [place] for the Encounter. Date/Time Encounter Type Encounter Description Reason Provider Source Feb 09, 2024 08:30 AM OFFICE O/P EST MOD 30 MIN MENTAL [facility]ALTH CLINIC - IND ICD-10-CM F43.23 Adjustment disorder with mixed anxiety and depressed mood TIANNA NOBLE Encounter Template Text not used by [place] Assessments - Encounter Diagnoses This section includes [...] activities for the patient from all [place] treatmentst. clare hospitalities. This section includes future appointments and future [...] AMBULATORY - NONE [place] [facility] [place] [place] [facility] Feb 19, 2024 08:30 AM AMBULATORY - MEDICINE [place] C [facility] [place] [facility] Feb 21, 2024 08:40 AM AMBULATORY - MEDICINE [place] C [place] [place] [facility] Mar 01, 2024 10:30 AM AMBULATORY - MEDICINE [place] [facility] Mar 12, 2024 09:00 AM AMBULATORY - MEDICINE [facility] [place] [facility] Mar 14, 2024 02:00 PM AMBULATORY - MEDICINE [place] C [facility] [place] [facility] Mar 25, 2024 08:00 AM AMBULATORY - MEDICINE [place] C [place] [facility] Mar 27, 2024 11:20 AM AMBULATORY - MEDICINE [place] C [place] [facility] May 03, 2024 10:00 AM AMBULATORY - MEDICINE [place] [facility] May 10, 2024 08:30 AM AMBULATORY - PSYCHIATRY [facility] Jul 11, 2024 10:30 AM AMBULATORY - NONE [place] CNT [place] [facility] Social History: Smoking Status (Most current) [...] 23, 2020 01:00 PM VA-TOBACCO NEVER USED [facility] Tobacco Use History This section includes a history of the smoking, or tobacco-related health factors, that were collected on or before the date of the Encounter. The data comes from the [place] facility where the Encounter took place. 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 This section includes ALL of a patient's completed or amended [place] Advance and Rescinded Directives. The entries below indicate that a directive exists for the patient, but an actual copy is not included with this document. The data comes from all [facility]. Date Advance Directives Provider Source Jun 29, 2023 ADVANCE DIRECTIVE JAMES GALLO [facility] Sep 19, 2017 ADVANCE DIRECTIVE DINA MCGINNIS [facility] Encounter Notes: All associated encounter notes This section contains the clinical notes associated to the Encounter. Date/Time Encounter Note(s) Provider Source Feb 09, 2024 08:36 AM TELEHEALTH NOTE: LOCAL TITLE: [place] VIDEO CONNECT PSYCHIATRIST NOTE STANDARD TITLE: TELEHEALTH NOTE DATE OF NOTE: FEB 09, 2024@08:36 ENTRY DATE: FEB 09, 2024@08:36:33 AUTHOR: TIANNA NOBLEIGNER: URGENCY: STATUS: COMPLETED [place] Video Connect ([facility]) Standard Documentation [facility] Clinician Resources Only: E911 (Emergency Call Relay Center): [phone] National Veterans Crisis Line - 988 then press #1. [facility] Suicide Coordinator [phone], Ext. [phone]; Back-up Ext. [phone] [place] Police, [place], [place] [phone] Introduction: Visit is being conducted by [place] [employer]. [place] identified with 2 identifiers: [X] Full Name [X] Date of [ ] SD ID Card Emergency Plan: [place] confirmed and/or provided the following information in case of emergency or technology failure. PATIENT PHONE - PHONE NUMBER [CELLULAR] - Is patient phone number correct, if not, enter below: [place]'s phone number: LAKESHA SQUIRES [address], [place], [address] [place]'s present location and address for appointment: home 's emergency contact name and phone number: see cover reported that location is private and safe: Yes Informed Consent: informed of the risks and benefits of Telehealth video care. has the right to refuse video services. If refuses video visit, a afak-of-oiib visit will be scheduled. verbalized consent for this video visit: Yes [place] provided consent for any other persons present [...] He denies irritability. Venu is enjoying his detention. He had an enjoyable summer traveling and camping in his with . Venu enjoys [employer] in [place], [place]. He discusses a future goal of an [employer] cruise. 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 He feels it will improve his mood also. On April 12 he is planning on a knee replacement surgery at [facility]. He discusses his relationship with his 10-year-old dog ( Tommy, nicknamed Slug ). Venu was cooperative with questions asked. 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 He has talked about the [employer] wild horses in [place]. He reports disability secondary to neuropathy and [...] of active outpatient prescriptions dispensed from this [place] (local) and dispensed from another [place] or [facility] facility (remote) as well as inpatient orders [...] Receipt Acknowledged By: 02/09/2024 09:18 /janine/ Olamide Roth ADVANCED BUSINESS PROCESS MANAGER TIANNA NOBLE
--- OUTSIDE RECORDS SUMMARY | 2024-10-17 08:03 | XMS_ITS | Encounter Summary ---
Author Name Department of Veter[place] Affairs [place] Organization Department [place] Address [address] [place] [address] Care Team Providers Care Entertainment Dancer Name Role Phone ARIEL JIMENEZ Primary Care [...] Parra's Name Patient's Relationship to Policy Parra [facility] Dec 19, 2015 [id number] LAKESHA NGO PATIENT [facility] May 29, 2012 [id number] TANA NGO PATIENT [facility] ORGANIZAT [facility] HEALT [facility] May 29, 2023 [id number] TANA NGO SPOUSE OPTUM RX PRESCRIPT [facility] May 29, 2023 [facility] [id number] TANA NGO SPOUSE Selected Encounter This section includes the information on record at [place] for the Encounter. Date/Time Encounter Type Encounter Description Reason Provider Source May 03, 2024 10:00 AM POS AIRWAY PRESSURE CPAP SLEEP MEDICINE ICD-10-CM G47.33 Obstructive sleep apnea (adult) (pediatric) [facility] Encounter Template Text not used by [place] Assessments - Encounter Diagnoses This section includes the primary and secondary diagnoses documented for the Encounter. Date/Time Primary/Secondary Diagnosis Diagnosis Name Provider Source Jun 11, 2024 03:57 PM PRIMARY Obstructive sleep apnea (adult) (pediatric) [facility] Plan of Treatment: Future Appointments (+ 6 months) and Future Tests (+/- 45 days) The Plan of Treatment section includes future care activities for the patient from all [place] [facility]. This section includes future appointments and future orders which are active, pending or scheduled. Future Appointments This section includes appointments that were scheduled to occur 6 months from the date of the Encounter, up to a maximum of 20 appointments. The data comes from all [place] treatment facilities. Appointment Date/Time Appointment Type Appointme nt Facility Name May 10, 2024 08:30 AM AMBULATORY - PSYCHIATRY [facility] Jul 11, 2024 10:30 AM AMBULATORY - NONE [facility] Aug 09, 2024 09:00 AM AMBULATORY - PSYCHIATRY [facility] Aug 16, 2024 11:00 AM AMBULATORY - MEDICINE [facility] October 07, 2024 01:00 PM AMBULATORY - MEDICINE [facility] Vital Signs: All taken on the encounter date This section contains inpatient and outpatient Vital Signs collected on the date of the Encounter. Date/Time Temperature Pulse Blood Pressure Respiratory Rate SP02 Pain Height Weight Body Mass Index Source May 03, 2024 09:39 AM 96.5 99 113/75 96 3 210.7 26 [facility] Advance Directives: All historical and current [...] Provider Source Jun 29, 2023 ADVANCE DIRECTIVE AJMES GALLO [facility] Sep 19, 2017 ADVANCE DIRECTIVE DINA MCGINNIS [place] [facility] Encounter Notes: All associated encounter notes [...] COMPLETED SLEEP FOLLOW-UP NOTE HPI: Lakesha Squires is a 58 MALE with [...] er escobar over the last 3 weeks, inspjosue used 2-4 hours per day. 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
--- OUTSIDE RECORDS SUMMARY | 2024-10-17 08:03 | XMS_ITS | Encounter Summary ---
Author Name [facility] [place] Address [address] [place] [address] Care Team Providers Care Manager Therapy Name Role Phone ARIEL JIMENEZ Primary Care [...] Parra's Name Patient's Relationship to Policy Parra [facility] Dec 19, 2015 [id number] [employer]AK[employer] NGO PATIENT [facility] May 29, 2012 [id number] TANA NGO PATIENT [facility] ORGANIZAT [facility] May 29, 2023 [id number] [phone] TANA NGO SPOUSE [facility] RX PRESCRIPT [facility] May [facility], 2023 [facility] [id number] [phone] [place] E,TANA SPOUSE Selected Encounter This section includes the information on record at [place] for the Encounter. 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 Date/Time Primary/Secondary Diagnosis Diagnosis Name Provider Source October 18, 2023 04:09 PM PRIMARY Varus deformity, not elsewhere classified, unspecified knee RENETTA OBREGON [place] [facility] [facility] Plan of Treatment: Future Appointments (+ 6 months) and Future Tests (+/- 45 days) The Plan of Treatment section includes future care activities for the patient [facility] [place] [facility] This section includes future [...] Feb 12, 2024 01:30 PM AMBULATORY - [facility] [place] [facility] Feb 19, 2024 08:30 AM AMBULATORY - MEDICINE [place] C [facility] [facility] Feb 21, 2024 08:40 AM AMBULATORY - MEDICINE [place] [facility] Mar 01, 2024 10:30 AM AMBULATORY - [facility]ICINE [facility] Mar 12, 2024 09:00 AM AMBULATORY - MEDICINE [place] [facility] [facility] Mar 14, 2024 02:00 PM AMBULATORY - MEDICINE [place] C [facility] [facility] Mar 25, 2024 08:00 AM AMBULATORY - MEDICINE [place] C [place] [facility] Mar 27, 2024 11:20 AM AMBULATORY - MEDICINE [place] C [facility] [facility] Lab Results: +/- 30 days of [...] Type Result - Unit Interpretation Reference Range Specimen Type Comment Sep 21, 2023 07:50 AM [facility] HEMOGLOBIN A1C PANEL BLOOD Specimen Type: BLOOD Comment: Values obtained from A1C measurements can vary. For atypical A1C assays, a reported value of 7.0 could actually be between 6.72 and 7.28 if measured by a reference method. A reported value of 9.0 could actually be between 8.73 and 9.27. Ref: http://www.ngsp .org/CAPdata.as p Ordering Provider: ARIEL JIMENEZ Report Released Date/Time: Jun 29, 2023 02:06 PM Reporting Lab: [facility] [address] [address] Performing Lab: [facility] [address] HEMOGLOBIN A1C 5.9 H 4.0-5.6 Sep 21, 2023 07:50 AM [facility] TSH SERUM Specimen Type: SERUM No comment entered. Ordering Provider: ARIEL JIMENEZ Report Released Date/Time: Jun 29, 2023 02:06 PM Reporting Lab: [facility] [address] [address] Performing Lab: [facility] [place] [address] [address] TSH 1.49 u[IU]/mL 0.35-5.00 Sep 21, 2023 07:50 AM [facility] MICROALBUMIN CREATININE RATIO PANEL URINE Spe cimen Type: URINE No comment entered. Ordering Provider: ARIEL JIMENEZ Report Released Date/Time: Jun 29, 2023 02:06 PM Reporting Lab: [facility] [address] [address] Performing Lab: [facility] [address] [address] MICROALBUMIN/CREATININE RATIO 8.8 mg/g 0 -29.9 MICROALBUMIN,QUANTITATIVE 0.5 mg/dL RR U NAVAIL CREATININE URINE 56.63 mg/dL Sep 21, 2023 07:50 AM [facility] BASIC METABOLIC PANEL (fasting) SERUM Specime n Type: SERUM No comment entered. Ordering Provider: ARIEL JIMENEZ Report Released Date/Time: Jun 29, 2023 02:06 PM Reporting Lab: [facility] [address] [address] Performing Lab: [facility] [address] [address] UREA NITROGEN 19 mg/dL 7-25 GLUCOSE 113 [...] 2023 09:00 AM VA-TOBACCO USER SOME DAYS [facility] Tobacco Use History This section includes a history of the smoking, or tobacco-related health factors, that were collected on or before the date of the Encounter. The data comes from the [place] facility where the Encounter took place. Date/Time Smoking Status/Tobacco Use Comment F acility Jun 22, 2023 09:00 AM VA-TOBACCO USE 30 YEARS OR MORE [facility] Jun 22, 2023 09:00 AM VA-TOBACCO USE ADVICE [facility] Jun 22, 2023 09:00 AM VA-TOBACCO USE PUBLIC RELATIONS PLAYER NO [facility] Jun 22, 2023 09:00 AM VA-TOBACCO USE MED NO [facility] Jun 22, 2023 09:00 AM VA-TOBACCO USER SOME DAYS [facility] Jan 13, 2022 02:00 PM VA-TOBACCO NEVER USED [facility] Jul 06, 2009 03:46 PM QUIT TOBACCO USE > 7 YEARS AGO [facility] Advance Directives: All historical and current [...] Jun 29, 2023 ADVANCE DIRECTIVE JAMES GALLO [facility] Sep 19, 2017 ADVANCE DIRECTIVE DINA MCGINNIS [facility] Encounter Notes: All associated encounter notes This section contains the clinical notes associated to the Encounter. 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
--- NOTE | 2024-10-17 08:04 | MHC.OFFWIV ---
Intake Vital Signs 10/17/24 08:09 Weight 221 lb BP 122/80 Blood Pressure Location Lt brachial Position Sitting Pulse 71 Pulse Source Pulse Oximeter Pulse Oximetry (%) 98 Oxygen Delivery Method Room Air Intake Visit Reasons: EP Poison Rubi? Intake Note: Patient here for poison rubi on left leg that has been present for about 1 week. Patient Tobacco Use Status: Never used Tobacco Allergies No Known Allergies Allergy (Verified 10/17/24 08:24) Do you need a note to return to daycare/school/sports/work: No HPI HPI Comments History of Present Illness Details 58 y/o Male patient who presents to the walk in clinic with c/o B/L Lower extremities Rash for 1 week. [place] and believe he might have encountered ?Poison Rubi plant. He called his [facility] provider who provided Steroid Cream Monday. [facility] Medical History (Updated 10/17/24 @ 09:13 by Odalis Joe NP) Rash and nonspecific skin eruption ARLETH (obstructive sleep apnea) Anxiety and depression Diabetes HLD (hyperlipidemia) HTN (hypertension) Internal derangement of left knee Surgical History H/O colonoscopy S/P placement of nerve stimulator Hx of arthroscopic knee surgery Hx of hernia repair Social History Household Members: Spouse Housing: House Are you a primary customer care voice consultant to a significant other at home: No Do you presently have visiting nurse or other home services: No Alcohol intake: never Comment: medicated with Vicodin Patient Tobacco Use Status: Never used Tobacco Tobacco use type: Cigar service: No Current occupational status: retired Current occupation: rt hand dominant Review of Systems Const All systems reviewed & are unremarkable except as noted in HPI and below Physical Exam Vital Signs: Last Vital Signs Pulse 71 10/17/24 08:09 BP 122/80 10/17/24 08:09 Pulse Ox 98 10/17/24 08:09 Oxygen Delivery Method Room Air 10/17/24 08:09 Const General: no acute distress Nutritional Appearance: well nourished Orientation/consciousness: patient oriented x3 Skin Full body images: 1. Macular papular erythematous rash lower extremities. 2. Macular papular erythematous rash lower extremities. 3. Macular papular erythematous rash lower extremities. Neuro General: patient oriented x3, gait normal and moves all extremities Extrem Right lower extremity: lower leg Details: erythema (Diffused) Left lower extremity: lower leg Details: erythema (diffuse.) Assessment & Plan Assessment & Plan (1) Rash and nonspecific skin eruption: Code(s): R21 - Rash and other nonspecific skin eruption Plan: Continue using Triamcinolone CReam as prescribed. Ordered Prednisone May use OTC lotions such as Calmine lotion. Use Benadrly for itching. Medications: New prednisone 20 mg PO DAILY 10 tabs 0RF R21 - Rash and other nonspecific skin eruption Coding Level of Care Code Est Pt Level 4 (05723) Diagnoses Rash and nonspecific skin eruption R21 Time Spent (min) 20
--- OUTSIDE RECORDS SUMMARY | 2024-10-17 08:04 | XMS_ITS ---
Author Name [facility] [place] Address [address] [place] [address] Care Team Providers Care Market Development Director Name Role Phone ARIEL JIMENEZ Primary [...] Parra's Name Patient's Relationship to Policy Parra [facility] Dec 19, 2015 [id number] LAKESHA NGO PATIENT [facility] May 29, 2012 [id number] TANA NGO PATIENT [facility] ORGANIZAT [facility] May 29, 2023 [id number] TANA NGO SPOUSE [facility] RX PRESCRIPT [facility] May [facility], 2023 [facility] [id number] [id number] [place] E,TANA SPOUSE Selected Encounter This section includes the information on record at [place] for the Encounter. Date/Time Encounter Type Encounter Description Reason Provider Source Feb 19, 2024 08:30 AM COMPRE OPH EXAM EST PT 1/> OPTOMETRY ICD-10-CM E11.9 Type 2 diabetes mellitus without complications MILLI PABON Sammy Encounter Template Text not used by [place] Assessments - Encounter Diagnoses This section includes the primary and secondary diagnoses documented for the Encounter. Date/Time Primary/Secondary Diagnosis Diagnosis Name Provider Source Feb 19, 2024 09:52 AM PRIMARY Type 2 diabetes mellitus without complications MILLI PABON [place] [facility] [facility] Feb 19, 2024 09:52 AM SECONDARY Combined forms of age-related cataract, bilateral MILLI PABON [place] [facility] Plan of Treatment: Future Appointments (+ 6 months) and Future Tests (+/- 45 days) The Plan of Treatment section includes future care activities for the patient from all [place] treatmentfacilities. This section includes future appointments and [...] 21, 2024 08:40 AM AMBULATORY - [place]IC[place] [facility] Mar 01, 2024 10:30 AM [place] [facility] Mar 12, 2024 09:00 AM AMBULATORY - [place]ICINE [place] [facility] Mar 14, 2024 02:00 PM AMBULATORY - [place]ICINE [place] [facility] Mar 25, 2024 08:00 AM AMBULATORY - [place]ICINE [place] [facility] Mar 27, 2024 11:20 AM AMBULATORY - [place]IC[place] [facility] May 03, 2024 10:00 AM AMBULATORY - [place]IC[place] [facility] May 10, 2024 08:30 AM AMBULATORY - PSYCHIATRY [facility] Jul 11, 2024 10:30 AM AMBULATORY - NONE [place] [facility] [place] [facility] Aug 09, 2024 09:00 AM AMBULATORY - PS[facility]CHIATRY [facility] Aug 16, 2024 11:00 AM [facility] - [facility] [place] [place] [facility] Lab Results: +/- 30 days of the [...] Unit Interpretation Reference Range Specimen Type Comment Mar 14, 2024 02:51 PM [facility] CBC AND DIFF (AUTO) BLOOD Specimen Type: BLOOD No comment entered. Ordering Provider: ARIEL JIMENEZ Report Released Date/Time: Mar 14, 2024 02:13 PM Reporting Lab: [facility] [address] [facility] [address] Performing Lab: [facility] [address] [address] WBC 6.17 10*3/uL 4.50-11.00 RBC 5.01 10*6/uL [...] 0.2 0.0-0.7 IMMATURE GRAN, ABS 0.01 10*3/uL 0.00-0.0 6 NRBC % 0.0 0.0-0.0 NRBC, ABS 0.00 10*3/uL 0.00-0.00 Mar 14, 2024 02:50 PM [facility] HEMOGLOBIN A1C PANEL BLOOD Specimen Type: BLO OD Comment: Values obtained from A1C measurements can vary. For atypical A1C assays, a reported value of 7.0 could actually be between 6.72 and 7.28 if measured by a reference method. A reported value of 9.0 could actually be between 8.73 and 9.27. Ref: http://www.ngsp.org/CAPdata.asp Ordering Provider: ARIEL JIMENEZ Report Released Date/Time: September 27, 2023 10:28 AM Reporting Lab: [address] [address] Performing Lab: [address] [address] HEMOGLOBIN A1C 5.7 H 4.0-5.6 Mar 12, 2024 09:50 AM [facility] PT & INR (PROTIME) PLASMA Specimen Type: PLASM A No comment entered. Ordering Provider: ARIEL JIMENEZ Report Released Date/Time: Feb 23, 2024 11:30 AM Reporting Lab: [address] [address] Performing Lab: [address] [address] INR 0.9 PROTIME 10.7 s 10.0-13.1 Mar 12, 2024 09:50 AM [facility] LIPID PANEL, NON FASTING SERUM Specimen Type: SERUM No comment entered. Ordering Provider: ARIEL JIMENEZ Report Released Date/Time: Feb 23, 2024 09:53 AM Reporting Lab: [address] [address] Performing Lab: [address] [address] CHOLESTEROL 130 mg/dL TRIGLYCERIDE 89 mg/dL 0-150 LDL calculated 57 mg/dL 0-129 CHOL/HDL 2.4 HDL CHOLESTEROL 55 mg/dL 40-60 Mar 12, 2024 09:50 AM [facility] BASIC METABOLIC PANEL (non-fasting) SERUM Spe cimen Type: SERUM No comment entered. Ordering Provider: ARIEL JIMENEZ Report Released Date/Time: Feb 23, 2024 09:53 AM Reporting Lab: [address] [address] Performing Lab: [address] [address] UREA NITROGEN 26 mg/dL H 7-25 GLUCOSE 136 mg/dL H 65-100 SODIUM 141 mmol/L 135-145 POTASSIUM 4.7 mmol/L 3.5-5.0 CHLORIDE 104 mmol/L 100-110 CO2 27 meq/L 20-30 CREATININE, Serum 0.86 mg/dL 0.50-1.40 eGFR(CKD-EPI 2020) >90 mL/min >60 Mar 12, 2024 09:50 AM [facility] CBC BLOOD Specimen Type: BLOOD No comment entered. Ordering Provider: ARIEL JIMENEZ Report Released Date/Time: Feb 23, 2024 11:30 AM Reporting Lab: [address] [address] Performing Lab: [address] [address] WBC 4.94 10*3/uL 4.50-11.00 RBC 4.72 10*6/uL [...] VA-TOBACCO DOESNT USE WI 30 MIN WAKEUP [facility] Tobacco Use History This section includes a history of the smoking, or tobacco-related health factors, that were collected on or before the date of the Encounter. The data comes from the [place] facility where the Encounter took place. Date/Time Smoking Status/Tobacco Use Comment F acility Jun 22, 2023 09:00 AM VA-TOBACCO USE 30 YEARS OR MORE [facility] Jun 22, 2023 09:00 AM VA-TOBACCO USE ADVICE 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 Jun 22, 2023 09:00 AM VA-TOBACCO USE MED NO [facility] Jun 22, 2023 09:00 AM VA-TOBACCO USER SOME DAYS [facility] Jan 13, 2022 02:00 PM VA-TOBACCO NEVER USED [facility] Jul 06, 2009 03:46 PM QUIT TOBACCO USE > 7 YEARS AGO [facility] Advance Directives: All historical and current Section [...] Jun 29, 2023 ADVANCE DIRECTIVE JAMES [facility]ALLO [facility] Sep 19, 2017 ADVANCE DIRECTIVE DINA MCGINNIS [facility] Encounter Notes: All associated encounter notes [...] Problem Diabetes mellitus with neuropathy E 06/29/2023 ARIEL JIMENEZ Lumbar radiculopathy M54.16 09/16/2019 JACQUELINE ELIZABETH Obstructive sleep apnea syndrome G4 02/11/2019 KARLY LIGHT Adjustment disorder with anxious mo 08/05/2020 REALTIANNA Essential hypertension I10. 05/14/2015 KARLY LIGHT Colonoscopy normal 799.9 09/24/2014 ROSALESKHIEM Hyperlipidemia E78.2 06/02/2016 KARLY LIGHT Pain of right knee joint (SNOMED CT 09/27/2023 ARIEL JIMENEZ Diabetes mellitus type 2 without re 06/15/2015 KARLY LIGHT Asthma 493.90 07/06/2009 JUANA MATHEW Hearing loss 389.9 07/06/2009 JUANA MATHEW Allergic rhinitis (SNOMED CT 722465 05/14/2015 KARLY LIGHT Medications ([place]): Active Outpatient Medications (including Supplies): Active Outpatient [...] months or sooner if any problems arise. Hamilton Education: After discussion and answering all 's questions, [place] demonstrated and verbalized understanding of diagnosis and [...] whether with a VA or non-VA provider. /es/ KAIDEN PABON OD STAFF [facility] Signed: 02/19/2024 09:52 [facility]
--- OUTSIDE RECORDS SUMMARY | 2024-10-17 08:04 | XMS_ITS ---
Author Name Department [place] Organization [place] Address [address] [place] [address] Care Team Providers Care Data Migration Consultant Name Role Phone ARIEL JIMENEZ Primary [...] Parra's Name Patient's Relationship to Policy Parra [facility] Dec 19, 2015 [id number] LAKESHA NGO PATIENT [facility] May 29, 2012 [id number] TANA NGO PATIENT [facility] ORGANIZAT [facility] May 29, 2023 [id number] TANA NGO SPOUSE OPTUM RX PRESCRIPT [facility]ON [facility] May 29, 2023 [facility] [id number] [phone] MORISSETT E,TANA SPOUSE Selected Encounter This section includes the information on record at [place] for the Encounter. Date/Time Encounter Type Encounter Description Reason Provider Source Mar 14, 2024 02:00 PM OFFICE O/P EST MOD 30 MIN PRIMARY CARE/MEDICINE ICD-10-CM E11.40 Type 2 diabetes mellitus with diabetic neuropathy, unsp FURCOLO,ARIEL IHE Encounter Template Text not used by DC Assessments - Encounter Diagnoses This section includes the primary and secondary diagnoses documented for the Encounter. Date/Time Primary/Secondary Diagnosis Diagnosis Name Provider Source Mar 15, 2024 08:09 AM PRIMARY Type 2 diabetes mellitus with diabetic neuropathy, unsp FURCOLO,ARIEL [place] [facility] [place] [facility] Mar 15, 2024 08:09 AM SECONDARY Pain in right knee FURCOLO,ARIEL [facility] [place] [facility] Plan of Treatment: Future Appointments (+ 6 months) and Future Tests (+/- 45 days) The Plan of Treatment section includes future care activities for the patient from all [place] treatmentfacilities. This section includes future appointments and [...] 25, 2024 08:00 AM AMBULATORY - MEDICINE [facility] [place] [facility] Mar 27, 2024 11:20 AM AMBULATORY - MEDICINE [facility] NTRL [place] [facility] May 03, 2024 10:00 AM AMBULATORY - MEDICINE [facility] May 10, 2024 08:30 AM AMBULATORY - PSYCHIATRY [facility] Jul 11, 2024 10:30 AM AMBULATORY - NONE [place] [facility] [place] [facility] Aug 09, 2024 09:00 AM AMBULATORY - PSYCHIATRY [facility] Aug 16, 2024 11:00 AM AMBULATORY - MEDICINE [facility] Lab Results: +/- 30 days of [...] Type Comment Mar 14, 2024 02:51 PM [facility] CBC AND DIFF (AUTO) BLOOD Specimen Type: BLOOD No comment entered. Ordering Provider: ARIEL JIMENEZ Report Released Date/Time: Mar 14, 2024 02:13 PM Reporting Lab: [facility] [address] [address] Performing Lab: [facility] [address] [address] WBC 6.17 10*3/uL 4.50-11.00 RBC 5.01 10*6/uL [...] 10*3/uL 0.00-0.00 Mar 14, 2024 02:50 PM [facility] HEMOGLOBIN A1C PANEL BLOOD Specimen Type: BLO [...] September 27, 2023 10:28 AM Reporting Lab: [facility] [address] [address] Performing Lab: [facility] [address] [address] HEMOGLOBIN A1C 5.7 H 4.0-5.6 Mar 12, 2024 09:50 AM [facility] LIPID PANEL, NON FASTING SERUM Specimen Type: SERUM No comment entered. Ordering Provider: ARIEL JIMENEZ Report Released Date/Time: Feb 23, 2024 09:53 AM Reporting Lab: [address] [address] Performing Lab: [facility] [address] [address] CHOLESTEROL 130 mg/dL TRIGLYCERIDE 89 mg/dL 0-150 LDL calculated 57 mg/dL 0-129 CHOL/HDL 2.4 HDL CHOLESTEROL 55 mg/dL 40-60 Mar 12, 2024 09:50 AM [facility] PT & INR (PROTIME) PLASMA Specimen Type: PLASM A No comment entered. Ordering Provider: ARIEL JIMENEZ Report Released Date/Time: Feb 23, 2024 11:30 AM Reporting Lab: [facility] [address] [facility] [address] Performing Lab: [facility] [address] [facility] [address] INR 0.9 PROTIME 10.7 s 10.0-13.1 Mar 12, 2024 09:50 AM [facility] BASIC METABOLIC PANEL (non-fasting) SERUM Spe cimen Type: SERUM No comment entered. Ordering Provider: ARIEL JIMENEZ Report Released Date/Time: Feb 23, 2024 09:53 AM Reporting Lab: [facility] [address] [address] Performing Lab: [address] [address] UREA NITROGEN 26 mg/dL H 7-25 GLUCOSE 136 mg/dL H 65-100 SODIUM 141 mmol/L 135-145 POTASSIUM 4.7 mmol/L 3.5-5.0 CHLORIDE 104 mmol/L 100-110 CO2 27 meq/L 20-30 CREATININE, Serum 0.86 mg/dL 0.50-1.40 eGFR(CKD-EPI 2020) >90 mL/min >60 Mar 12, 2024 09:50 AM [facility] CBC BLOOD Specimen Type: BLOOD No comment entered. Ordering Provider: ARIEL JIMENEZ Report Released Date/Time: Feb 23, 2024 11:30 AM Reporting Lab: [address] [address] Performing Lab: [address] [address] WBC 4.94 10*3/uL 4.50-11.00 RBC 4.72 10*6/uL [...] 95 117/74 16 95 5 220 28 [facility] Social History: Smoking Status (Most current) [...] 2023 09:00 AM [facility] Tobacco Use History This section includes a history of the smoking, or tobacco-related health factors, that were collected on or before the date of the Encounter. The data comes from the [place] facility where the Encounter took place. 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 [facility] Jun 22, 2023 09:00 AM VA-TOBACCO USE MED [facility] Jun 22, 2023 09:00 AM VA-TOBACCO USER SOME DAYS DC [facility] [facility] Jan 13, 2022 02:00 PM VA-TOBACCO NEVER USED [facility] Jul 06, 2009 03:46 PM QUIT TOBACCO USE > 7 YEARS AGO [facility] Advance Directives: All historical and current Section [...] 29, 2023 ADVANCE DIRECTIVE JAMES GALLO [place] [facility] [place] [facility] Sep 19, 2017 ADVANCE DIRECTIVE DINA MCGINNIS [facility] Encounter Notes: All associated encounter notes This [...] CARE TEAM Community Primary Care Provider: none [place] Specialists: ENT [facility]- DR. Brooks optometry audiology Community Specialists: ENT Dr Walter Kulkarni in 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 [employer]. HISTORY [...] Pain of right knee joint (SNOMED CT 602831185122162) 9. Diabetes mellitus type 2 without retinopathy (SNOMED CT 5808581310726) 10. Asthma 11. Hearing loss 12. 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 Alcohol Use: weekends/special [...] for the following: Knee pain (SNOMED CT 16115000)- medically optimized for right knee replacement surgery [...] 03/15/2024 08:09 ARIEL JIMENEZ [facility] [facility] Mar 14, 2024 02:20 PM PHYSICIAN NOTE: LOCAL TITLE: NOTE STANDARD TITLE: PHYSICIAN NOTE DATE OF NOTE: MAR 14, 2024@14:20 ENTRY DATE: MAR 14, 2024@14:20:39 AUTHOR: ARIEL JIMENEZ EXP COSIGNER: URGENCY: STATUS: COMPLETED NOTE Has ADDENDA LAKESHA SQUIRES is a 57 year old WHITE MALE who is being seen today in primary care for pre-op clearance for right knee replacement surgery with DR. Constantine Fritz on 04/10/24. CARE TEAM Community Primary Care Provider: [facility] Specialists: ENT [facility]- DR. 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 [employer]. HISTORY [...] Pain of right knee joint (SNOMED CT 223195507913877) 9. Diabetes mellitus type 2 without retinopathy (SNOMED CT 2800821494998) 10. Asthma 11. Hearing loss 12. 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 PHYSICIAN Signed: 03/15/2024 08:09 03/15/2024 ADDENDUM STATUS: COMPLETED please fax encounter and EKG to neida Fritz . thanks /janine/ ARIEL JIMENEZ D.O. PHYSICIAN Signed: 03/15/2024 08:09 Receipt Acknowledged By: * AWAITING SIGNATURE * PRADEEP GALVEZ [facility] [place] [place] [facility] Mar 14, 2024 12:47 PM PREVENTIVE MEDICINE NURSING NOTE: LOCAL TITLE: CLINICAL REMINDERS/NURSING STANDARD TITLE: PREVENTIVE MEDICINE NURSING NOTE DATE OF NOTE: MAR 14, 2024@12:47 ENTRY DATE: MAR 15, 2024@12:47:11 AUTHOR: JAXSON HARDEN EXP COSIGNER: URGENCY: STATUS: COMPLETED Follow Up Colonoscopy: Colonoscopy is due based on information available to this reminder. Colonoscopy consult has been ordered. See orders tab for details. /janine/ JAXSON HARDEN LPN License Practical Nurse Signed: 03/15/2024 12:50 JAXSON HARDEN [facility] Mar 14, 2024 12:39 PM CARDIOLOGY DIAGNOSTIC STUDY CONSULT: LOCAL TITLE: CONSULT REPORT/EKG STANDARD TITLE: CARDIOLOGY DIAGNOSTIC STUDY CONSULT DATE OF NOTE: MAR 14, 2024@12:39 ENTRY DATE: MAR 15, 2024@12:39:31 AUTHOR: JAXSON HARDEN EXP COSIGNER: URGENCY: STATUS: COMPLETED EKG tracing was performed for diagnosis of pre op clearance ordered by Dr. Jimenez. /janine/ JAXSON HARDEN LPN License Practical Nurse Signed: 03/15/2024 12:39 JAXSON HARDEN [facility]
--- OUTSIDE RECORDS SUMMARY | 2024-10-17 08:04 | XMS_ITS ---
Author Name Department of [place] Organization [place] Address [address] [place] [address] Care Team Providers Care Phosphorus Processing Supervisor Name Role Phone ARIEL JIMENEZ Primary Care [...] Parra [facility] Dec 19, 2015 [id number] [phone] LAKESHA NGO PATIENT [facility] May 29, 2012 [id number] ATNA NGO PATIENT [facility] May 29, 2023 [id number] TANA NGO SPOUSE OPTUM RX PRESCRIPT [facility]ON [facility] May 29, 2023 [facility] [id number] TANA NGO SPOUSE Selected Encounter This section includes the information on record at [place] for the Encounter. Date/Time Encounter Type Encounter Description Reason Provider Source October 14, 2024 04:03 PM Outpatient Encounter PRIMARY CARE/MEDICINE DINA ESCOBAR Encounter Template Text not used by [place] Plan of Treatment: Future Appointments (+ 6 months) and Future Tests (+/- 45 days) The Plan of Treatment section includes future care activities for the patient from all [place] [facility]. This section includes future appointments and future orders which are active, pending or scheduled. Future Appointments This section includes appointments that were scheduled to occur 6 months from the date of the Encounter, up to a maximum of 20 appointments. The data comes from all [place] treatment facilities. Appointment Date/Time Appointment Type Appointme Facility Name Nov 08, 2024 09:00 AM AMBULATORY - PSYCHIATRY [facility] Nov 15, 2024 08:30 AM AMBUL[facility]ORY - MEDICINE [facility] Jan 31, 2025 07:30 PM AMBULATORY - MEDICINE [facility] Active, Pending, and Scheduled Orders This [...] AM Consult Order [facility] Cons Optical Glass Wet Inspector's Choice [facility] Social History: Smoking Status [...] 09:00 AM VA-TOBACCO USER SOME DAYS [facility] Tobacco Use History This section includes a history of the smoking, or tobacco-related health factors, that were collected on or before the date of the Encounter. The data comes from the [place] facility where the Encounter took place. Date/Time Smoking Status/Tobacco Use Comment F acility Jun 22, 2023 09:00 AM VA-TOBACCO USE 30 YEARS OR MORE [facility] Jun 22, 2023 09:00 AM VA-TOBACCO USE ADVICE [facility] Jun 22, 2023 09:00 AM VA-TOBACCO USE URGENT CARE PHYSICIAN NO [facility] Jun 22, 2023 09:00 AM VA-TOBACCO USE MED NO [facility] Jun 22, 2023 09:00 AM VA-TOBACCO USER SOME DAYS [facility] Jan 13, 2022 02:00 PM VA-TOBACCO NEVER USED [facility] Jul 06, 2009 03:46 PM QUIT TOBACCO USE > 7 YEARS AGO [facility] Advance Directives: All historical and [...] 29, 2023 ADVANCE DIRECTIVE JAMES GALLO [facility] Sep 19, 2017 ADVANCE DIRECTIVE DINA MCGINNIS [facility] Encounter Notes: All associated encounter notes This section contains the clinical notes associated to the Encounter. Date/Time Encounter Note(s) Provider Source October 14, 2024 04:03 PM PRIMARY CARE Local Marketers MESSAGING: LOCAL TITLE: PRIMARY CARE SECURE MESSAGING STANDARD TITLE: PRIMARY CARE SECURE MESSAGING DATE OF NOTE: OCTOBER 14, 2024@16:03 ENTRY DATE: OCTOBER 14, 2024@16:03:01 AUTHOR: DINA ESCOBAR EXP COSIGNER: URGENCY: STATUS: COMPLETED PRIMARY CARE SECURE MESSAGING Has ADDENDA ------Original Message ------- Sent: 10/14/2024 06:29 AM ET From: LAKESHA SQUIRES To: Alex JIMENEZ _ PRIMARY CARE_[facility] Subject: Medication:Small area of hives Good morning, I have had a small area of hives on my left calf that has been pretty itchy. We had a small amount of Triamcinolone that has stopped the itching. However, there was very little left. Would I need to come in, or is this something I can slat pickler at the pharmacy in [place]? Thank you and have a good day. Vijay /janine/ DINA ESCOBAR Registered Nurse Signed: 10/14/2024 16:03 Receipt Acknowledged By: 10/14/2024 16:31 /janine/ ARIEL JIMENEZ D.O. PHYSICIAN 10/14/2024 ADDENDUM STATUS: COMPLETED i can order for slat pickler at [place] JUAN JOSÉ /janine/ ARIEL JIMENEZ D.O. PHYSICIAN Signed: 10/14/2024 16:32 Receipt Acknowledged By: * AWAITING SIGNATURE * DINA ESCOBAR [facility]HAEL [facility]
--- OUTSIDE RECORDS SUMMARY | 2024-10-17 08:04 | XMS_ITS | Encounter Summary ---
Author Name Department of [place] Organization Department of [place] Address [address] [place] [address] Care Team Providers Care Precision Dancer Name Role Phone ARIEL INFANTE Primary Care [...] Name Patient's Relationship to Policy Parra [facility] Dec 19, 2015 [id number] [phone] LAKESHA NGO PATIENT [facility] May 29, 2012 [id number] TANA NGO PATIENT [facility] ORGANIZFORMERLY [facility] HEALT [facility] May 29, 2023 [id number] TANA NGO SPOUSE [facility] RX PRESCRIPT [facility] May [facility], 2023 [facility] [id number] TANA NGO SPOUSE Selected Encounter This section includes the information on record at [place] for the Encounter. Date/Time Encounter Type Encounter Description Reason Provider Source Jun 13, 2024 02:41 PM CASE MANAGEMENT ADMIN PAT ACTIVTIES (LESLYE) SELENA MEDINA Encounter Template Text not used by [place] Plan of Treatment: Future Appointments (+ 6 months) and Future Tests (+/- 45 days) The Plan of Treatment section includes future care activities for the patient from all [place] [facility]. This section includes future appointments [...] 11, 2024 10:30 AM [facility] Aug 09, 2024 09:00 AM AMBULATORY - PSYCHIATRY [facility] Aug 16, 2024 11:00 AM AMBULATORY - MEDICINE [facility] October 07, 2024 01:00 PM AMBULATORY - MEDICINE [facility] Nov 08, 2024 09:00 AM AMBULATORY - PSYCHIATRY [facility] Nov 15, 2024 08:30 AM AMBULATORY - MEDICINE [facility] Social History: Smoking Status (Most current) [...] 09:00 AM VA-TOBACCO USER SOME DAYS [facility] Tobacco Use History This section includes a history of the smoking, or tobacco-related health factors, that were collected on or before the date of the Encounter. The data comes from the [place] facility where the Encounter took place. Date/Time Smoking Status/Tobacco Use Comment F acility Jun 22, 2023 09:00 AM PR-TOBACCO USE [address] [facility] Jun 22, 2023 09:00 AM VA-TOBACCO USE ADVICE [facility] Jun 22, 2023 09:00 AM VA-TOBACCO USE CLINICAL MICROBIOLOGIST NO [facility] Jun 22, 2023 09:00 AM VA-TOBACCO USE MED NO [facility] Jun 22, 2023 09:00 AM VA-TOBACCO USER SOME DAYS [facility] Jan 13, 2022 02:00 PM VA-TOBACCO NEVER [facility] Jul 06, 2009 03:46 PM QUIT TOBACCO USE > [address] [facility] Advance Directives: All historical and [...] Jun 29, 2023 ADVANCE DIRECTIVE JAMES GALLO [facility] Sep 19, 2017 ADVANCE DIRECT[address] DINA MCGINNIS [facility] Encounter Notes: All associated encounter notes This section contains the clinical notes associated to the Encounter. Date/Time Encounter Note(s) Provider Source Jun 13, 2024 02:41 PM NURSING NOTE: LOCAL TITLE: PCMM/TRAVELING COORDINATOR STANDARD TITLE: NURSING NOTE DATE OF NOTE: JUN 13, 2024@14:41 ENTRY DATE: JUN 13, 2024@14:41:18 AUTHOR: SELENA MEDINA COSIGNER: URGENCY: STATUS: COMPLETED Notification:Phone Call VA Referral received from:[place] [facility]: unknown at this time Requesting Provider:Unknown Primary Care Provider:Edgar Infante Reason for referral: clinical indication:(Narrative) seeking information regarding TRV program as he will be likely traveling for [employer] Relocation Education: Provided guidance and instructions for obtaining temporary supplies and refill medications. , Described the roles and responsibilities of the TVC., Clarified the roles and responsibilities of the TVC role at [facility] and [facility] facilities. Notified TVC at [facility] Facility? No Narrative Note: [place] wanting to know how to obtain VA care when traveling outside of home VA. Has a new job with [employer] so no deployment has been set. Encouraged [...] so that pharmacy can send medications 4. provided TRVC phone number for further questions/concerns/needs /es/ Selena Medina MSN,RN,[facility] TRANSFER/TRAVELING COORDINATOR Signed: 06/13/2024 14:47 SELENA MEDINA [place] [facility]
--- OUTSIDE RECORDS SUMMARY | 2024-10-17 08:04 | XMS_ITS | Continuity of Care Document ---
Author Name [facility] Organization [facility] Care Team Providers Care Brick Kiln Burner Name Role Phone [facility] Unavailable Unavailable Problems Combined list of problems [...] [facility] [place] [facility] Allergic rhinitis (SNOMED CT 77304821) [facility] Asthma Active Condition [facility] Colonoscopy normal Active Condition Sep 24, 2014 Entered By: SINAI ROSALES Comment: in 2013; was told normal; [place] Diabetes mellitus type 2 without retinopathy (SNOMED CT [id number]) Active Condition [facility] [place] Diabetes mellitus with neuropathy Active Condition [facility] Essential hypertension Active Condition [place] Hearing loss Active Condition [facility] Hyperlipidemia Active Condition [facility] IE Lumbar radiculopathy Active Condition [facility] [place] Obstructive sleep apnea syndrome Active Condition [facility] D Pain of right knee joint (SNOMED CT [id number]) Active Condition [facility] Sleep apnea Active Condition [facility] Hyperglycemia due to type 2 diabetes mellitus Inactive Condition 09/19/2017 [facility] Diagnosis: ICD-10-CM F52.21 Male erectile disorder Active Diagnosis [facility] ([id number]) Diagnosis: ICD-10-CM G47.33 Obstructive sleep apnea (adult) (pediatric) Active Diagnosis [facility] Diagnosis: ICD-10-CM F43.23 Adjustment disorder with mixed anxiety and depressed mood Active Diagnosis [facility] D Diagnosis: ICD-10-CM Z46.0 Encounter for fit/adjst of spectacles and contact lenses Active Diagnosis [facility] Diagnosis: ICD-10-CM Z13.6 Encounter for screening for cardiovascular disorders Active Diagnosis [facility] Diagnosis: ICD-10-CM E11.40 Type 2 diabetes mellitus with diabetic neuropathy, unsp Active Diagnosis [facility] Diagnosis: ICD-10-CM E11.9 Type 2 diabetes mellitus without complications Active Diagnosis [facility] KAELYNShayla [facility] Diagnosis: ICD-10-CM G47.30 Sleep apnea, unspecified Active [facility] Diagnosis: ICD-10-CM 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, not elsewhere classified, unspecified knee Active Diagnosis [facility] Diagnosis: ICD-10-CM Z46.1 Encounter for fitting and adjustment of hearing aid Active Diagnosis [facility] Diagnosis: ICD-10-CM H90.3 Sensorineural hearing loss, bilateral Active Diagnosis [facility]Shayla [facility] Medications Combined list of outpatient medications [...] RESPIR ATORY (INHAL ATION) ACTIVE [facility] ASPIRIN 81MG TAB,EC TAKE ONE TABLET BY MOUTH DAILY ORAL ACTIVE ROYAL,AL ICE [facility] ATORVASTATI N CA 80MG TAB TAKE ONE-HALF TABLET BY MOUTH EVERY EVENING AFTER SUPPER FOR CHOLESTE ROL ORAL ACTIVE 10/24/2024 [id number] 5 FURCOLO,T WALTER 2023 [facility] ATORVASTATI N CA 80MG TAB TAKE ONE-HALF TABLET BY MOUTH EVERY EVENING AFTER SUPPER FOR CHOLESTE ROL ORAL DISCONT INUED 08/21/2024 [id number] 4 FURCOLO,T WALTER 2023 45 [facility] BUPROPION HCL 150MG 12HR TAB,SA TAKE ONE TABLET BY MOUTH EVERY MORNING FOR MOOD ORAL ACTIVE 08/10/2025 [id number] NAHED NOBLE MANDA 2024 90 [place] BUPROPION HCL 150MG 12HR TAB,SA TAKE ONE TABLET BY MOUTH EVERY MORNING FOR MOOD ORAL DISCONT INUED 05/11/2025 [id number] 5 NAHED NOBLE MANDA 2024 90 [place] BUPROPION HCL 150MG 12HR TAB,SA TAKE ONE TABLET BY MOUTH EVERY MORNING FOR MOOD ORAL DISCONT INUED 10/24/2024 [id number] FURCOLO,T WALTER 2023 90 [facility] [place] [facility] BUPROPION HCL 150MG 12HR TAB,SA TAKE ONE TABLET BY MOUTH EVERY MORNING FOR MOOD ORAL DISCONT INUED 08/21/2024 [id number] NAHED NOBLE MANDA 2023 60 [place] BUPROPION HCL 150MG 12HR TAB,SA TAKE ONE TABLET BY MOUTH EVERY MORNING FOR MOOD ORAL DISCONT INUED 10/08/2023 [id number] NAHED NOBLE MANDA 2023 60 [place] EMPAGLIFLOZ IN 10MG TAB TAKE ONE TABLET BY MOUTH ONCE DAILY FOR DIABETES ORAL ACTIVE 10/24/2024 [id number] 5 FURCOLO,T WALTER 2023 90 [facility] [place] [facility] EMPAGLIFLOZ IN 10MG TAB TAKE ONE TABLET BY MOUTH ONCE DAILY FOR DIABETES ORAL DISCONT INUED 08/21/2024 [id number] FURCOLO,T WALTER 2023 90 [facility] [place] HYDROCHLORO THIAZIDE 12.5MG CAP TAKE ONE CAPSULE BY MOUTH DAILY ORAL ACTIVE 10/24/2024 [id number] 5 FURCOLO,T WALTER 2023 90 [facility] [place] [facility] HYDROCHLORO THIAZIDE 12.5MG CAP TAKE ONE CAPSULE BY MOUTH DAILY ORAL DISCONT INUED 09/25/2024 [id number] 4 FURCOLO,T WALTER 2023 90 [facility] LISINOPRIL 5MG TAB TAKE ONE TABLET BY MOUTH DAILY TO CONTROL BLOOD PRESSURE ORAL ACTIVE 10/24/2024 [id number] 5 FURCOLO,T WALTER 2023 90 [facility] LISINOPRIL 5MG TAB TAKE ONE TABLET BY MOUTH DAILY TO CONTROL BLOOD PRESSURE ORAL DISCONT INUED 09/25/2024 [id number] FURCOLO,T WALTER 2023 90 [facility] LISINOPRIL 5MG TAB TAKE ONE TABLET BY MOUTH DAILY TO CONTROL BLOOD PRESSURE ORAL DISCONT INUED 10/14/2023 [id number] 4 MINNA PAGE 2022 90 [place] LORATADINE 10MG TAB TAKE ONE TABLET BY MOUTH ONCE DAILY NEEDED ORAL ACTIVE Ian LIGHT T 2017 [place] METFORMIN HCL 500MG 24HR TAB,SA TAKE ONE TABLET BY MOUTH TWICE DAILY FOR TYPE 2 DIABETES MELLITUS ORAL ACTIVE 10/24/2024 [id number] 5 FURCOLO,T WALTER 2023 180 [facility] [place] METFORMIN HCL 500MG 24HR TAB,SA TAKE ONE TABLET BY MOUTH TWICE DAILY FOR TYPE 2 DIABETES MELLITUS ORAL DISCONT INUED 08/21/2024 [id number] FURCOLO,T WALTER 2023 180 [facility] [place] [facility] SEMAGLUTIDE 1MG/0.75ML INJ,SOLN,PE N,3ML INJECT 1MG SUBCUTAN EOUSLY ONCE A WEEK FOR DIABETES (REPLACE S DULAGLUT LO [TRULICI TY]) SUBCUT ANEOUS ACTIVE 10/24/2024 [id number] 5 FURCOLO,T WALTER 2023 3 [facility] [place] SEMAGLUTIDE 1MG/0.75ML INJ,SOLN,PE N,3ML INJECT 1MG SUBCUTAN EOUSLY ONCE A WEEK FOR DIABETES (REPLACE S DULAGLUT LO [TRULICI TY]) SUBCUT ANEOUS DISCONT INUED 09/07/2024 [id number] 4 FURCOLO,T WALTER 2023 3 [facility] [place] [facility] SILDENAFIL CITRATE 100MG TAB TAKE ONE TABLET BY MOUTH ONCE DAILY NEEDED TAKE 1 HOUR PRIOR TO SEXUAL ACTIVITY ORAL ACTIVE 06/29/2024 [id number] FURCOLO,T WALTER 2023 6 [facility] [place] [facility] SILDENAFIL CITRATE 100MG TAB TAKE ONE TABLET BY MOUTH ONCE DAILY NEEDED TAKE 1 HOUR PRIOR TO SEXUAL ACTIVITY ORAL DISCONT INUED BY PROVIDE R 10/05/2024 [id number] 5 FURCOLO,T WALTER 2023 18 [facility] [place] [facility] TADALAFIL 20MG TAB TAKE ONE TABLET BY MOUTH ONCE DAILY NEEDED FOR ERECTILE DYSFUNCT ION ORAL ACTIVE 10/04/2025 [id number] FURCOLO,T WALTER 2024 18 [place] TRIAMCINOLO NE ACETONIDE 0.1% CREAM,TOP APPLY A THIN LAYER TOPICALL Y ONCE DAILY FOR ITCHING TOPICA L ACTIVE 11/13/2024 [id number] 5 FURCOLO,T WALTER 2024 30 [place] Immunizations Combined list of available immunizations from the Department of Defense and Veterans Affairs facilities. Immunization Series Date Given Administered By Site Reaction Lot Number CVX Code Drug Service Manager Status Comments Source INFLUENZA, UNSPECIFIED FORMULATION 2022 88 complet ed Completed Series, HISTORICA L INFORMATI ON - FROM PATIENT'S RECALL, [facility] TDAP 2022 JACINTA DOLAN ADONAY LEFT DELTO ID L 115 complet ed ADMINISTE [place] [facility] [place], [facility] PNEUMOCOCCAL CONJUGATE PCV20, POLYSACCHARID E [id number] CONJUGATE, ADJUVANT, PF 2022 JACINTA DOLAN RIGHT DELTO ID [id number] 216 complet ed ADMINISTE [place] AT [place], [id number] EXP: 01/2024 [facility] HEP B, ADULT 2 2022 ROSA DOS SANTOS LEFT DELTO ID [id number] 43 complet ed ADMINISTE [place] AT [place], [place] HEP B, ADULT 2 2021 [...] ML DOSE 2 2020 207 complet ed [place] [employer] COVID-19 (MODERNA), MRNA, LNP-S, PF, 100 MCG/0.5 [...] Lab: [facility] [place] [facility] [address] [facility] [address] Performing Lab: [facility] [place] [facility] [address] [facility] [address] [facility] [place] [facility] CBC AND DIFF (AUTO) ERYTHROCYTE S [#/VOLUME] IN BLOOD BY AUTOMATED COUNT 5.01 10*6/u L 4.23 - 5.66 03/14 Specimen Type: BLOOD No comment entered. Ordering Provider: SERA JIMENEZ Report Released Date/Time: Mar 14, 2024 02:13 PM Reporting Lab: [facility] [place] [facility] [address] [facility] [address] Performing Lab: [facility] [place] [facility] [address] [facility] [address] [facility] [place] [facility] CBC AND DIFF (AUTO) HEMOGLOBIN [MASS/VOLUM E] IN BLOOD 16.0 g/dL 12.8 - 17 03/14 Specimen Type: BLOOD No comment entered. Ordering Provider: SERA JIMENEZ Report Released Date/Time: Mar 14, 2024 02:13 PM Reporting Lab: [facility] [place] [facility] [address] [facility] [address] Performing Lab: [facility] [place] [facility] [address] [facility] [address] [facility] CBC AND DIFF (AUTO) HEMATOCRIT [VOLUME FRACTION] OF BLOOD BY AUTOMATED COUNT 45.8 39.2 - 50.4 03/14 Specimen Type: BLOOD No comment entered. Ordering Provider: SERA JIMENEZ Report Released Date/Time: Mar 14, 2024 02:13 PM Reporting Lab: [facility] [place] [facility] [address] [facility] [address] Performing Lab: [facility]ITAL[facility] [address] [facility] [address] [facility]ERR[facility]N [facility] CBC AND DIFF (AUTO) MCV [ENTITIC VOLUME] BY AUTOMATED COUNT 91.4 fL 82 - 99 03/14 Specimen Type: BLOOD No comment entered. Ordering Provider: SERA JIMENEZ Report Released Date/Time: Mar 14, 2024 02:13 PM Reporting Lab: [facility]ERRMOBILE [facility] HOSPITALTRN [place] [facility] [address] [facility] [address] Performing Lab: [facility]N [facility]OSPITALUSETS [facility] [address] [facility] [address] [facility]ENTERRL [facility] CBC AND DIFF (AUTO) MCHC [MASS/VOLUM E] BY AUTOMATED COUNT 34.9 g/dL 30.8 - 35.1 03/14 Specimen Type: BLOOD No comment entered. Ordering Provider: SERA JIMENEZ Report Released Date/Time: Mar 14, 2024 02:13 PM Reporting Lab: [facility]ERR[facility] HOSPITALTRN [place] [facility] [address] [facility] [address] Performing Lab: [facility] TRN [facility] HOSPITALUSETS [facility] [address] [facility] [address] [facility]ERR[facility]N [facility]ITALUSE [facility] CBC AND DIFF (AUTO) PLATELETS [#/VOLUME] IN BLOOD BY AUTOMATED COUNT 193 10*3/u L 140 - 360 03/14 Specimen Type: BLOOD No comment entered. Ordering Provider: FURCOLO,TIN A Report Released Date/Time: Mar 14, 2024 02:13 PM Reporting Lab: [facility] [place] [facility] [address] [facility] [address] Performing Lab: [facility] [place] [facility] [address] [facility] [address] [facility] [place] [facility] CBC AND DIFF (AUTO) ERYTHROCYTE DISTRIBUTIO N WIDTH [RATIO] BY AUTOMATED COUNT 12.7 12.0 - 16.0 03/14 Specimen Type: BLOOD No comment entered. Ordering Provider: SERA JIMENEZ Report Released Date/Time: Mar 14, 2024 02:13 PM Reporting Lab: [facility] [place] [facility] [address] [facility] [address] Performing Lab: [facility] [place] [facility] [address] [facility] [address] [facility] [place] [facility] CBC AND DIFF (AUTO) MONOCYTES [#/VOLUME] IN BLOOD BY AUTOMATED COUNT 0.63 10*3/u L 0.30 - 1.10 03/14 Specimen Type: BLOOD No comment entered. Ordering Provider: SERA JIMENEZ Report Released Date/Time: Mar 14, 2024 02:13 PM Reporting Lab: [facility] [place] [facility] [address] [facility] [address] Performing Lab: [facility] [place] [facility] [address] [facility] [address] [facility] [place] [facility] CBC AND DIFF (AUTO) MCH [ENTITIC MASS] BY AUTOMATED COUNT 31.9 pg 26.2 - 32.6 03/14 Specimen Type: BLOOD No comment entered. Ordering Provider: SERA JIMENEZ Report Released Date/Time: Mar 14, 2024 02:13 PM Reporting Lab: [facility] [place] [facility] [address] [facility] [address] Performing Lab: [facility] [place] [facility] [address] [facility] [address] [facility] [place] [facility] CBC AND DIFF (AUTO) NEUTROPHILS /100 LEUKOCYTES IN BLOOD BY AUTOMATED COUNT 73.5 43.7 - 75.8 03/14 Specimen Type: BLOOD No comment entered. Ordering Provider: SERA JIMENEZ Report Released Date/Time: Mar 14, 2024 02:13 PM Reporting Lab: [facility] [place] [facility] [address] [facility] [address] Performing Lab: [facility] [place] [facility] [address] [facility] [address] [facility] [place] [facility] CBC AND DIFF (AUTO) LYMPHOCYTES /100 LEUKOCYTES IN BLOOD BY AUTOMATED COUNT 13.9 14.0 - 42.3 03/14 L Specimen Type: BLOOD No comment entered. Ordering Provider: SERA JIMENEZ Report Released Date/Time: Mar 14, 2024 02:13 PM Reporting Lab: [facility] [place] [facility] [address] [facility] [address] Performing Lab: [facility] [place] [facility] [address] [facility] [address] [facility] [place] [facility] CBC AND DIFF (AUTO) MONOCYTES/1 00 LEUKOCYTES IN BLOOD BY AUTOMATED COUNT 10.2 5.1 - 13.7 03/14 Specimen Type: BLOOD No comment entered. Ordering Provider: SERA JIMENEZ Report Released Date/Time: Mar 14, 2024 02:13 PM Reporting Lab: [facility] [place] [facility] [address] [facility] [address] Performing Lab: [facility] [place] [facility] [address] [facility] [address] [facility] [place] [facility] CBC AND DIFF (AUTO) EOSINOPHILS /100 LEUKOCYTES IN BLOOD BY AUTOMATED COUNT 1.9 0.4 - 6.8 03/14 Specimen Type: BLOOD No comment entered. Ordering Provider: SERA JIMENEZ Report Released Date/Time: Mar 14, 2024 02:13 PM Reporting Lab: [facility] [place] [facility] [address] [facility] [address] Performing Lab: [facility] [place] [facility] [address] [facility] [address] [facility] [place] [facility] CBC AND DIFF (AUTO) BASOPHILS/1 00 LEUKOCYTES IN BLOOD BY AUTOMATED COUNT 0.3 0.1 - 2.0 03/14 Specimen Type: BLOOD No comment entered. Ordering Provider: SERA JIMENEZ Report Released Date/Time: Mar 14, 2024 02:13 PM Reporting Lab: [facility] [place] [place] [address] [address] Performing Lab: [facility] [place] [address] [address] [facility] [place] [facility] CBC AND DIFF (AUTO) NEUTROPHILS [#/VOLUME] IN BLOOD BY AUTOMATED COUNT 4.53 10*3/u L 2.20 - 7.60 03/14 Specimen Type: BLOOD No comment entered. Ordering Provider: SERA JIMENEZ Report Released Date/Time: Mar 14, 2024 02:13 PM Reporting Lab: [facility] [place] [address] [address] Performing Lab: [facility] [place] [place] [address] [address] [facility] [place] [facility] CBC AND DIFF (AUTO) LYMPHOCYTES [#/VOLUME] IN BLOOD BY AUTOMATED COUNT 0.86 10*3/u L 1.00 - 3.20 03/14 L Specimen Type: BLOOD No comment entered. Ordering Provider: SERA JIMENEZ Report Released Date/Time: Mar 14, 2024 02:13 PM Reporting Lab: [facility] [place] [address] [address] Performing Lab: [facility] [place] [address] [address] [facility] [place] [facility] CBC AND DIFF (AUTO) EOSINOPHILS [#/VOLUME] IN BLOOD BY AUTOMATED COUNT 0.12 10*3/u L 0.03 - 0.44 03/14 Specimen Type: BLOOD No comment entered. Ordering Provider: SERA JIMENEZ Report Released Date/Time: Mar 14, 2024 02:13 PM Reporting Lab: [facility] [place] [address] [address] Performing Lab: [facility] [place] [facility] [address] [facility] [address] [facility] [place] [facility] CBC AND DIFF (AUTO) BASOPHILS [#/VOLUME] IN BLOOD BY AUTOMATED COUNT 0.02 10*3/u L 0.01 - 0.13 03/14 Specimen Type: BLOOD No comment entered. Ordering Provider: SERA JIMENEZ Report Released Date/Time: Mar 14, 2024 02:13 PM Reporting Lab: [facility] [place] [place] [facility] [address] [facility] [address] Performing Lab: [facility] [place] [facility] [address] [facility] [address] [facility] [place] [facility] CBC AND DIFF (AUTO) IMMATURE GRANULOCYTE S/100 LEUKOCYTES IN BLOOD BY AUTOMATED COUNT 0.2 0.0 - 0.7 03/14 Specimen Type: BLOOD No comment entered. Ordering Provider: SERA JIMENEZ Report Released Date/Time: Mar 14, 2024 02:13 PM Reporting Lab: [facility] [place] [address] [address] Performing Lab: [facility] [place] [place] [facility] [address] [facility] [address] [facility]RL W[facility]N D[facility]ENTERCHUSE TS [facility] CBC AND DIFF (AUTO) IMMATURE GRANULOCYTE S [#/VOLUME] IN BLOOD 0.01 10*3/u L 0.00 - 0.06 03/14 Specimen Type: BLOOD No comment entered. Ordering Provider: SERA JIMENEZ Report Released Date/Time: Mar 14, 2024 02:13 PM Reporting Lab: [facility] [place] [address] [address] Performing Lab: [facility] [place] [address] [address] [facility]RL W[facility]N D[facility] CENTERCHUSE TS [facility] CBC AND DIFF (AUTO) NRBC % 0.0 0.0 - 0.0 03/14 Specimen Type: BLOOD No comment entered. Ordering Provider: SERA JIMENEZ Report Released Date/Time: Mar 14, 2024 02:13 PM Reporting Lab: [facility] [place] [facility] [address] [facility] [address] Performing Lab: [facility] TRN DCH [facility] CENTERCHUSETS [facility] [address] [facility] [address] [facility]N [place] [facility] CBC AND DIFF (AUTO) NRBC, ABS 0.00 10*3/u L 0.00 - 0.00 03/14 Specimen Type: BLOOD No comment entered. Ordering Provider: SERA JIMENEZ Report Released Date/Time: Mar 14, 2024 02:13 PM Reporting Lab: [facility] [place] [facility] [address] [facility] [address] Performing Lab: [facility]RL [facility]N [facility]USE[address] [address] [facility]ENTERRNOR[facility] BALDWIN INFIRMARYN [place] [facility] HEMOGLOBI N A1C PANEL HEMOGLOBIN A1C/HEMOGLO [...] September 27, 2023 10:28 AM Reporting Lab: [facility]ERRNOR[facility]MARYN [facility] HOSPITALUSETS [facility] [address] [facility] [address] Performing Lab: [facility]RL TRN [facility]ITALUSE[facility] [address] [facility] [address] [facility]ERRNOR[facility]N [facility]ITALUSE [facility] PT & INR (PROTIME) INR IN PLATELET POOR PLASMA BY COAGULATION ASSAY 0.9 03/12 Specimen Type: PLASMA No comment entered. Ordering Provider: SERA JIMENEZ Report Released Date/Time: Feb 23, 2024 11:30 AM Reporting Lab: [facility]ERR[facility]MARYN [facility]ITALUSE[address] [address] Performing Lab: [facility]RL [facility] [place] [facility] [address] [facility] [address] [facility]ERR W[facility]N [place] [facility] PT & INR (PROTIME) PROTHROMBIN TIME (PT) 10.7 s 10.0 - 13.1 03/12 Specimen Type: PLASMA No comment entered. Ordering Provider: SERA JIMENEZ Report Released Date/Time: Feb 23, 2024 11:30 AM Reporting Lab: [facility] [place] [place] [facility] [address] [facility] [address] Performing Lab: [place] [facility] [place] [address] [address] [facility]ENTERRMOBILE CITY HOSPITALTRN [facility] HOSPITALUSE [facility] LIPID PANEL, NON FASTING CHOLESTEROL [MASS/VOLUM E] IN SERUM OR PLASMA 130 mg/dL 03/12 Specimen Type: SERUM No comment entered. Ordering Provider: SERA JIMENEZ Report Released Date/Time: Feb 23, 2024 09:53 AM Reporting Lab: [facility]ENTERRMOBILE CITY HOSPITALTRN [place] [address] [address] Performing Lab: [facility]ENTERRL [facility] [place] [address] [address] [facility]ERRNOR[facility] BALDW[facility] INFIRMARYN [facility]OSPITALUSE [facility] LIPID PANEL, NON FASTING TRIGLYCERID E [MASS/VOLUM E] IN SERUM OR PLASMA 89 mg/dL 0 - 150 03/12 Specimen Type: SERUM No comment entered. Ordering Provider: SERA JIMENEZ Report Released Date/Time: Feb 23, 2024 09:53 AM Reporting Lab: [facility]RL [facility] [place] [address] [address] Performing Lab: [facility]RL [facility] [place] [address] [address] [facility] CENTERRMOBILE CITY HOSPITALTRN [place]SUSE [facility] LIPID PANEL, NON FASTING CHOLESTEROL IN LDL [MASS/VOLUM E] IN SERUM OR PLASMA BY CALCULATION 57 mg/dL 0 - 129 03/12 Specimen Type: SERUM No comment entered. Ordering Provider: SERA JIMENEZ Report Released Date/Time: Feb 23, 2024 09:53 AM Reporting Lab: [facility] [place] [address] [address] Performing Lab: [facility]ERR[facility]TRN [facility]USE[facility] [address] [facility] [address] [facility]OSPITALUSE [facility] LIPID PANEL, NON FASTING CHOLESTEROL .TOTAL/CHOL ESTEROL IN HDL [MASS RATIO] IN SERUM OR PLASMA 2.4 03/12 Specimen Type: SERUM No comment entered. Ordering Provider: SERA JIMENEZ Report Released Date/Time: Feb 23, 2024 09:53 AM Reporting Lab: [facility]ERR[facility]TRN [facility]ITALUSE[facility] [address] [facility] [address] Performing Lab: [facility]ERRMO[facility]ITALTRN [facility]ITALUSE[facility] [address] [facility] [address] [facility] LIPID PANEL, NON FASTING CHOLESTEROL IN HDL [MASS/VOLUM E] IN SERUM OR PLASMA 55 mg/dL 40 - 60 03/12 Specimen Type: SERUM No comment entered. Ordering Provider: SERA JIMENEZ Report Released Date/Time: Feb 23, 2024 09:53 AM Reporting Lab: [facility]ERR[facility]TRN [facility] HOSPITALUSETS [facility] [address] [facility] [address] Performing Lab: [facility]ERRMO[facility]ITALTRN [facility] HOSPITALUSE[address] [address] [facility] BASIC METABOLIC PANEL (non-fast ing) UREA NITROGEN [MASS/VOLUM E] IN SERUM OR PLASMA 26 mg/dL 7 - 25 03/12 H Specimen Type: SERUM No comment entered. Ordering Provider: SERA JIMENEZ Report Released Date/Time: Feb 23, 2024 09:53 AM Reporting Lab: [facility]ERRMO[facility]ITALTRN [facility]ITALUSE[facility] [address] [facility] [address] Performing Lab: [facility] CENTERRMOBILE CITY HOSPITALTRN [facility] HOSPITALUSE[address] [address] [facility]N [facility] HOSPITALUSE [facility] BASIC METABOLIC PANEL (non-fast ing) GLUCOSE [MASS/VOLUM E] IN SERUM OR PLASMA 136 mg/dL 65 - 100 03/12 H Specimen Type: SERUM No comment entered. Ordering Provider: SERA JIMENEZ Report Released Date/Time: Feb 23, 2024 09:53 AM Reporting Lab: [facility]ENTERRMOBILE CITY HOSPITALTRN [place] [facility] [address] [facility] [address] Performing Lab: [facility] CENTERRL WSTRN [facility] HOSPITALUSEK[facility] [address] [facility] [address] [facility]ENTERRL WSTRN [facility]S HOSPITALUSE [facility] BASIC METABOLIC PANEL (non-fast ing) SODIUM [MOLES/VOLU ME] IN SERUM OR PLASMA 141 mmol/L 135 - 145 03/12 Specimen Type: SERUM No comment entered. Ordering Provider: SERA JIMENEZ Report Released Date/Time: Feb 23, 2024 09:53 AM Reporting Lab: [facility]ENTERRMOBILE CITY HOSPITALTRN [facility] HOSPITALUSEK[facility] [address] [facility] [address] Performing Lab: [facility]ENTERRMOBILE CITY HOSPITALTRN [facility]OSPITALUSE[address] [address] [facility]ENTERRNORTH BALDWIN INFIRMARYN [facility] BASIC METABOLIC PANEL (non-fast ing) POTASSIUM [MOLES/VOLU ME] IN SERUM OR PLASMA 4.7 mmol/L 3.5 - 5.0 03/12 Specimen Type: SERUM No comment entered. Ordering Provider: SERA JIMENEZ Report Released Date/Time: Feb 23, 2024 09:53 AM Reporting Lab: [facility]ENTERRNORTH BALDWIN INFIRMARYN [facility] HOSPITALUSE[address] [address] Performing Lab: [facility] CENTERRL TRN [facility] HOSPITALUSEK[facility] [address] [facility] [address] [facility]ENTERRNORTH BALDWIN INFIRMARYN [facility] BASIC METABOLIC PANEL (non-fast ing) CHLORIDE [MOLES/VOLU ME] IN SERUM OR PLASMA 104 mmol/L 100 - 110 03/12 Specimen Type: SERUM No comment entered. Ordering Provider: SERA JIMENEZ Report Released Date/Time: Feb 23, 2024 09:53 AM Reporting Lab: [facility]ENTERRMOBILE CITY HOSPITALTRN [facility] HOSPITALUSEK[facility] [address] [facility] [address] Performing Lab: [facility]ENTERRMOBILE CITY HOSPITALTRN [facility]OSPITALUSE[address] [address] [facility]ENTERRNOR[facility] BALDWIN INFIRMARYN [facility] BASIC METABOLIC PANEL (non-fast ing) CARBON DIOXIDE, TOTAL [MOLES/VOLU ME] IN SERUM OR PLASMA 27 meq/L 20 - 30 03/12 Specimen Type: SERUM No comment entered. Ordering Provider: SERA JIMENEZ Report Released Date/Time: Feb 23, 2024 09:53 AM Reporting Lab: [place] [facility] [facility] [address] [facility] [address] Performing Lab: [facility] MARK[facility] HOSPITALUSETS [address] [address] [facility] CENTERRL WSTRN [facility]S HOSPITALUSE [facility] BASIC METABOLIC PANEL (non-fast ing) CREATININE [MASS/VOLUM E] IN SERUM OR PLASMA 0.86 mg/dL 0.50 - 1.40 03/12 Specimen Type: SERUM No comment entered. Ordering Provider: SERA JIMENEZ Report Released Date/Time: Feb 23, 2024 09:53 AM Reporting Lab: [facility] CENTERRL WSTRN [facility] MARK'S HOSPITALUSETS [address] [address] Performing Lab: [facility] CENTERRL TRN [facility] HOSPITALUSE[address] [address] [facility] CENTERRL TRN [facility] MARK'S HOSPITALUSE [facility] BASIC METABOLIC PANEL (non-fast ing) GLOMERULAR FILTRATION RATE/1.73 SQ M.PREDICTED [VOLUME RATE/AREA] IN SERUM, PLASMA OR BLOOD BY CREATININE- BASED FORMULA (CKD-EPI 2020) >90mL/ min 60 03/12 Specimen Type: SERUM No comment entered. Ordering Provider: SERA JIMENEZ Report Released Date/Time: Feb 23, 2024 09:53 AM Reporting Lab: [facility] CENTERRL TRN MASSUSE[address] [address] Performing Lab: [place] [address] [address] [facility] CENTERRL [facility]ERN [facility] HOSPITALUSE [facility] CBC LEUKOCYTES [#/VOLUME] IN BLOOD BY AUTOMATED COUNT 4.94 10*3/u L 4.50 - 11.00 03/12 Specimen Type: BLOOD No comment entered. Ordering Provider: SERA JIMENEZ Report Released Date/Time: Feb 23, 2024 11:30 AM Reporting Lab: [facility]ENTERRMOBILE CITY HOSPITALTRN [facility]OSPITALUSE[address] [address] Performing Lab: [facility] [place] [facility] [address] [facility] [address] [facility] [place] [facility] CBC ERYTHROCYTE S [#/VOLUME] IN BLOOD BY AUTOMATED COUNT 4.72 10*6/u L 4.23 - 5.66 03/12 Specimen Type: BLOOD No comment entered. Ordering Provider: SERA JIMENEZ Report Released Date/Time: Feb 23, 2024 11:30 AM Reporting Lab: [facility] [place] [facility] [address] [facility] [address] Performing Lab: [facility] [place] [facility] [address] [facility] [address] [facility] [place] [facility] CBC HEMOGLOBIN [MASS/VOLUM E] IN BLOOD 15.3 g/dL 12.8 - 17 03/12 Specimen Type: BLOOD No comment entered. Ordering Provider: SERA JIMENEZ Report Released Date/Time: Feb 23, 2024 11:30 AM Reporting Lab: [facility] [place] [facility] [address] [facility] [address] Performing Lab: [facility] [place] [address] [address] [facility] CENTERRL WSTRN [place] [facility] CBC HEMATOCRIT [VOLUME FRACTION] OF BLOOD BY AUTOMATED COUNT 43.3 39.2 - 50.4 03/12 Specimen Type: BLOOD No comment entered. Ordering Provider: SERA JIMENEZ Report Released Date/Time: Feb 23, 2024 11:30 AM Reporting Lab: [facility] [place] [facility] [address] [facility] [address] Performing Lab: [facility] [place] [address] [address] [facility] [place] [facility] CBC MCV [ENTITIC VOLUME] BY AUTOMATED COUNT 91.7 fL 82 - 99 03/12 Specimen Type: BLOOD No comment entered. Ordering Provider: SERA JIMENEZ Report Released Date/Time: Feb 23, 2024 11:30 AM Reporting Lab: [facility] [place] [address] [address] Performing Lab: [facility] [place] [facility] [address] [facility] [address] [facility] [place] [facility] CBC MCHC [MASS/VOLUM E] BY AUTOMATED COUNT 35.3 g/dL 30.8 - 35.1 03/12 H Specimen Type: BLOOD No comment entered. Ordering Provider: SERA JIMENEZ Report Released Date/Time: Feb 23, 2024 11:30 AM Reporting Lab: [facility] [place] [facility] [address] [facility] [address] Performing Lab: [facility] [place] [facility] [address] [facility] [address] [facility] [place] [facility] CBC PLATELETS [#/VOLUME] IN BLOOD BY AUTOMATED COUNT 175 10*3/u L 140 - 360 03/12 Specimen Type: BLOOD No comment entered. Ordering Provider: SERA JIMENEZ Report Released Date/Time: Feb 23, 2024 11:30 AM Reporting Lab: [facility] [place] [facility] [address] [facility] [address] Performing Lab: [facility] [place] [facility] [address] [facility] [address] [facility] [place] [facility] CBC ERYTHROCYTE DISTRIBUTIO N WIDTH [RATIO] BY AUTOMATED COUNT 12.2 12.0 - 16.0 03/12 Specimen Type: BLOOD No comment entered. Ordering Provider: SERA JIMENEZ Report Released Date/Time: Feb 23, 2024 11:30 AM Reporting Lab: [facility] [place] [facility] [address] [facility] [address] Performing Lab: [facility] [place] [facility] [address] [facility] [address] [facility] [place] [facility] CBC MCH [ENTITIC MASS] BY AUTOMATED COUNT 32.4 pg 26.2 - 32.6 03/12 Specimen Type: BLOOD No comment entered. Ordering Provider: SERA JIMENEZ Report Released Date/Time: Feb 23, 2024 11:30 AM Reporting Lab: [facility] [place] [facility] [address] [facility] [address] Performing Lab: [facility] [place] [facility] [address] [facility] [address] [facility] [place] [facility] HEMOGLOBI N A1C PANEL HEMOGLOBIN A1C/HEMOGLO [...] Jun 29, 2023 02:06 PM Reporting Lab: [facility]ENTERRNORTH BALDWIN INFIRMARYN [facility]OSPITALUSE[address] [address] Performing Lab: [facility] CENTERRMOBILE CITY HOSPITALTRN [facility]OSPITALUSE[address] [address] [facility]ENTERRNORTH BALDWIN INFIRMARYN [facility] HOSPITALUSE [facility] TSH THYROTROPIN [UNITS/VOLU ME] IN SERUM OR PLASMA 1.49 u[IU]/ mL 0.35 - 5.00 09/20 Specimen Type: SERUM No comment entered. Ordering Provider: SERA JIMENEZ Report Released Date/Time: Jun 29, 2023 02:06 PM Reporting Lab: [facility]ENTERRNORTH BALDWIN INFIRMARYN [facility]OSPITALUSE[address] [address] Performing Lab: [facility]ENTERRL TRN [facility]PITALUSE[address] [address] [facility]ENTERRL TRN MASSUSE [facility] MICROALBU MIN CREATININ E RATIO PANEL MICROALBUMI N/CREATININ E [MASS RATIO] IN URINE 8.8 mg/g 0 - 29.9 09/20 Specimen Type: URINE No comment entered. Ordering Provider: SERA JIMENEZ Report Released Date/Time: Jun 29, 2023 02:06 PM Reporting Lab: [facility]ENTERRMOBILE CITY HOSPITALTRN [facility]OSPITALUSE[address] [address] Performing Lab: [facility]ENTERRMOBILE CITY HOSPITALTRN [facility]OSPITALUSE[address] [address] [facility] [place] [facility] MICROALBU MIN CREATININ E RATIO PANEL MICROALBUMI N [MASS/VOLUM E] IN URINE 0.5 mg/dL 09/20 Specimen Type: URINE No comment entered. Ordering Provider: SERA JIMENEZ Report Released Date/Time: Jun 29, 2023 02:06 PM Reporting Lab: [facility] [place] [facility] [address] [facility] [address] Performing Lab: [facility] [place] [facility] [address] [facility] [address] [facility] [place] [place] [facility] MICROALBU MIN CREATININ E RATIO PANEL CREATININE [MASS/VOLUM E] IN URINE 56.63 mg/dL 09/20 Specimen Type: URINE No comment entered. Ordering Provider: SERA JIMENEZ Report Released Date/Time: Jun 29, 2023 02:06 PM Reporting Lab: [place] [facility] [place] [address] [address] Performing Lab: [facility] [place] [address] [address] [facility]ENTERRL WSTRN [place] [facility] BASIC METABOLIC PANEL (fasting) UREA NITROGEN [MASS/VOLUM E] IN SERUM OR PLASMA 19 mg/dL 7 - 25 09/20 Specimen Type: SERUM No comment entered. Ordering Provider: SERA JIMENEZ Report Released Date/Time: Jun 29, 2023 02:06 PM Reporting Lab: [facility] [place] [address] [address] Performing Lab: [facility] [place] [address] [address] [facility] [place] [facility] BASIC METABOLIC PANEL (fasting) GLUCOSE [MASS/VOLUM E] IN SERUM OR PLASMA 113 mg/dL 65 - 100 09/20 H Specimen Type: SERUM No comment entered. Ordering Provider: SERA JIMENEZ Report Released Date/Time: Jun 29, 2023 02:06 PM Reporting Lab: [place] [facility] [place] [address] [address] Performing Lab: [facility]ENTERRL TRN [facility] MARK'S HOSPITALUSETS [facility] [address] [facility] [address] [facility] CENTERRMOBILE CITY HOSPITALTRN [facility] MARK'S HOSPITALUSE [facility] BASIC METABOLIC PANEL (fasting) SODIUM [MOLES/VOLU ME] IN SERUM OR PLASMA 137 mmol/L 135 - 145 09/20 Specimen Type: SERUM No comment entered. Ordering Provider: SERA JIMENEZ Report Released Date/Time: Jun 29, 2023 02:06 PM Reporting Lab: [facility] CENTERRL TRN [facility] MARK'S HOSPITALUSETS [facility] [address] [facility] [address] Performing Lab: [facility] CENTERRL TRN [facility] HOSPITALUSEK[facility] [address] [facility] [address] [facility]N [facility] BASIC METABOLIC PANEL (fasting) POTASSIUM [MOLES/VOLU ME] IN SERUM OR PLASMA 4.0 mmol/L 3.5 - 5.0 09/20 Specimen Type: SERUM No comment entered. Ordering Provider: SERA JIMENEZ Report Released Date/Time: Jun 29, 2023 02:06 PM Reporting Lab: [facility] CENTERRMOBILE CITY HOSPITALTRN [facility]OSPITALUSE[address] [address] Performing Lab: [facility]ENTERRL TRN [facility]OSPITALUSEK[facility] [address] [facility] [address] [facility]ENTERRNOR[facility]DW[facility] INFIRMARYN [facility] BASIC METABOLIC PANEL (fasting) CHLORIDE [MOLES/VOLU ME] IN SERUM OR PLASMA 102 mmol/L 100 - 110 09/20 Specimen Type: SERUM No comment entered. Ordering Provider: SERA JIMENEZ Report Released Date/Time: Jun 29, 2023 02:06 PM Reporting Lab: [facility]ENTERRL TRN [facility] MARK'S HOSPITALUSETS [facility] [address] [facility] [address] Performing Lab: [facility]ENTERRL TRN [facility] MARK'S HOSPITALUSETS [facility] [address] [facility] [address] [facility]ENTERRNOR[facility]DW[facility] INFIRMARYN [facility] BASIC METABOLIC PANEL (fasting) CARBON DIOXIDE, TOTAL [MOLES/VOLU ME] IN SERUM OR PLASMA 26 meq/L 20 - 30 09/20 Specimen Type: SERUM No comment entered. Ordering Provider: SERA JIMENEZ Report Released Date/Time: Jun 29, 2023 02:06 PM Reporting Lab: [facility] [address] [facility] [address] Performing Lab: [facility] [address] [facility] [address] [facility] BASIC METABOLIC PANEL (fasting) CREATININE [MASS/VOLUM E] IN SERUM OR PLASMA 0.79 mg/dL 0.50 - 1.40 09/20 Specimen Type: SERUM No comment entered. Ordering Provider: SERA JIMENEZ Report Released Date/Time: Jun 29, 2023 02:06 PM Reporting Lab: [facility] [address] [facility] [address] Performing Lab: [address] [address] [facility] BASIC METABOLIC PANEL (fasting) GLOMERULAR FILTRATION RATE/1.73 SQ M.PREDICTED [VOLUME RATE/AREA] IN SERUM, PLASMA OR BLOOD BY CREATININE- BASED FORMULA (CKD-EPI 2020) >90mL/ min 60 09/20 Specimen Type: SERUM No comment entered. Ordering Provider: SERA JIMENEZ Report Released Date/Time: Jun 29, 2023 02:06 PM Reporting Lab: [facility] [address] [facility] [address] Performing Lab: [address] [address] [facility] Vital Signs Combined list of inpatient and outpatient Vital Signs from Department of Defense and Veterans Affairs, ranging from 12 months to all on record, depending upon the facility. Vital Sign Value Date Comments Source SYSTOLIC BLOOD PRESSURE 125 08/17/19 25 10:44:37 [facility] DIASTOLIC BLOOD PRESSURE 80 025 10:44:37 [facility] PULSE OXIMETRY 98 08/16/2024 10:44:37 [facility] WEIGHT 218 08/16/2024 10:44:37 [facility] BMI 27 kg/m2 08/16/2024 10:44:37 [facility] PAIN 0 08/16/2024 10:44:37 [facility] TEMPERATURE 96.6 08/16/2024 10:44:37 [facility] PULSE 86 08/16/2024 10:44:37 [facility] SYSTOLIC BLOOD PRESSURE 113 05/03/20 09:39:04 [facility] DIASTOLIC BLOOD PRESSURE 75 09:39:04 [facility] PULSE OXIMETRY 96 05/03/2024 09:39:04 [facility] WEIGHT 210.7 05/03/2024 09:39:04 [facility] BMI 26 kg/m2 05/03/2024 09:39:04 [facility] PAIN 3 05/03/2024 09:39:04 [facility] TEMPERATURE 96.5 05/03/2024 09:39:04 [facility] PULSE 99 05/03/2024 09:39:04 [facility] SYSTOLIC BLOOD PRESSURE 117 03/14/20 13:57:11 [...] HCS SYSTOLIC BLOOD PRESSURE 111 03/01/20 09:54:11 [facility] DIASTOLIC BLOOD PRESSURE 74 09:54:11 [facility] PULSE OXIMETRY 96 03/01/2024 09:54:11 [facility] WEIGHT 217.4 03/01/2024 09:54:11 [facility] BMI 27 kg/m2 03/01/2024 09:54:11 [facility] PAIN 7 03/01/2024 09:54:11 [facility] TEMPERATURE 96.6 03/01/2024 09:54:11 [facility] PULSE 86 03/01/2024 09:54:11 [facility] Encounters Combined list of: 1) Encounters from Department of Veterans Affairs facilities going backup to the last 18 months, not all VA inpatient encounters are included; 2) Encounters from the Department of [facility] facilities going backup to 280 months. Location Location Details Encounter Type Encounter Number Reason For Visit Attending Provider ADM Date DC Date Status Disposition Source [facility] En[facility] [id number] 06[facility]19 [facility] En[facility] [id number] 06/19 [facility] Encounter [id number] 06/20 [facility] En[facility] [id number] 06/21 [facility] En[facility] [id number] 06/21 [facility] En[facility] [id number] 06/22 [facility] Encounter [id number] PATSY GUALLPA 06/27 [facility] [place] OFF[place] O/P EST MOD 30 MIN [id number] Diagnos is: ICD-10- CM F43.23 Adjustm ent disorde r with mixed anxiety and depress ed mood YESENIA NOBLE AN 06/28 [place] [facility] OFFICE O/[place] HI 40 MIN [id number] 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, unsp FURCOLO,TI NA 06/29 [facility] Outpatient Encounter [id number] 06/29 [facility] HEARING AID FITTING/CH ECKING [id number] Diagnos is: ICD-10- CM Z46.1 Encount er for fitting and adjustm ent of hearing aid Derrell HORNE 07/03 [facility] [place] [facility] Outpatient Encounter [id number] 07/03 [facility] [place] [facility] Outpatient Encounter [id number] Diagnos is: ICD-10- CM G47.33 Obstruc tive sleep apnea (adult) (pediat sara) KENISHA [facility]IANO [facility] Outpatient Encounter [id number] 07/12 [facility] Outpatient Encounter [id number] PATSY GUALLPA E 07/24 [facility] [place] [facility] HEARING AID EXAM BOTH EARS [id number] Diagnos is: ICD-10- CM H90.3 Sensori neural hearing loss, bilater CAROLINE Sutton 07/25 [facility] En[facility] [id number] 08/07 [facility] OFFICE O/P EST MOD 30 MIN [id number] Diagnos is: ICD-10- CM F43.23 Adjustm ent disorde r with mixed anxiety and depress ed mood NAHED NOBLEJack DUPONT 08/08 [facility] [place] [facility] En[facility] [id number] 08/08 [facility] HEARING SERVICE [id number] Diagnos is: ICD-10- CM Z46.1 Encount er for fitting and adjustm ent of hearing aid Derrell HORNE 08/17 [facility] En[facility] [id number] PATSY GUALLPA 08/20 [facility] HEARING AID FITTING/CH ECKING [id number] Diagnos is: ICD-10- CM Z46.1 Encount er for fitting and adjustm ent of hearing aid CAROLINE RAYO 08/23 [facility] En[facility] [id number] 08/27 [facility] Encounter [id number] ERNIE HARDEN 08/28 [facility] HC PRO PHONE CALL 11-20 MIN [id number] Diagnos is: ICD-10- CM G47.33 Obstruc tive sleep apnea (adult) ([facility]) Karl PERSAUD 08[facility]28 [facility] Outpatient Encounter [id number] 09/04 [facility] [place] [facility] FEE [id number] Diagnos is: ICD-10- CM G47.33 Obstruc tive sleep apnea (adult) ([facility] sara) LEANNA PRESTON BALDEMAR 09[place]04 [place] [facility] Outpatient Encounter [id number] Emilee GOODWIN 09/06 [facility] [facility] Outpatient Encounter [id number] 09/10 [facility] [place] SPEECH LANGUAGE PATHOLOGIST ASSISTANT STDY UNATTENDED [id number] Diagnos is: ICD-10- CM G47.33 Obstruc tive sleep apnea (adult) ([facility]) MODE BROOKS 09/11 [facility] Outpatient Encounter [id number] Emilee GOODWIN 09/12 [facility] [place] [place] [facility] Outpatient Encounter [id number] JONES LIZAMA 09/20 [facility] [place] [facility] ORTHC/PROS TC MGMT SBSQ ENC [id number] Diagnos is: ICD-10- CM M21.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, not elsewhe re classif ied, unspeci fied knee Olivia OBREGON 09/21 [facility] En[facility] [id number] 09/24 [facility] En[facility] [id number] ERNIE HARDEN 09/24 [facility] OFF[facility] O/P EST MOD 30 MIN [id number] 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, unsp FURCOLO,TI NA 09/26 [facility] En[facility] [id number] 10/02 [facility] [id number] Emilee OGODWIN 10/02 [facility] En[facility] [id number] 10/12 [facility] [id number] 10/12 [facility] En[facility] [id number] Emilee GOODWIN 10/15 [facility] En[facility] [id number] Emilee GOODWIN 10/17 [facility] ORTHC/PROS TC MGMT SBSQ ENC [id number] Diagnos is: ICD-10- CM M21.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, not elsewhe re classif ied, unspeci fied knee Olivia OBREGON 10/17 [facility] Outpatient Encounter [id number] Diagnos is: ICD-10- CM G47.30 Sleep apnea, unspeci fied KENISHA SORIANO 10/25 [place] [facility] Outpatient Encounter [id number] 11/01 [facility] O/P EST MOD 30 MIN [id number] Diagnos is: ICD-10- CM F43.23 Adjustm ent disorde r with mixed anxiety and depress ed mood YESENIA NOBLE 11/08 [place] [facility] Outpatient Encounter [id number] 12/21 [facility] En[facility] [id number] 01/31 [facility] Encounter [id number] 02/01 [facility] Encounter [id number] 02/05 [facility] Outpatient Encounter [id number] Emilee GOODWIN 02/07 [facility] [place] [place] OFFICE O/P EST MOD 30 MIN [id number] Diagnos is: ICD-10- CM F43.23 Adjustm ent disorde r with mixed anxiety and depress ed mood YESENIA NOBLE 02/08 [place] [facility] Encounter [id number] Emilee GOODWIN E 02/08 [facility] Encounter [id number] 02/11 [facility] Encounter [id number] 02/13 [facility] COMPRE OPH EXAM EST PT 1/ [id number] Diagnos is: ICD-10- CM E11.9 Type 2 diabete s mellitu s without complic ations CRESENCIO PABON E 02/18 [facility] FIT SPECTACLES MULTIFOCAL [id number] Diagnos is: ICD-10- CM Z46.0 Encount er for fit/adj st of spectac les and contact lenses MEKHI HOUSE 02/20 [facility] Encounter [id number] 02/25 [facility] [place]P EST LOW 20 MIN [id number] Diagnos is: ICD-10- CM G47.33 Obstruc tive sleep apnea (adult) (pediat sara) LONNIE MOORE 03/01 [facility] Encounter [id number] 1.03/14 [facility] Encounter [id number] 03/14 [facility] OFFICE O/P EST MOD 30 MIN [id number] 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, unsp FURCOLO,TI NA 03/14 [facility] [place] ELECTROCAR DIOGRAM REPORT [id number] Diagnos is: ICD-10- CM Z13.6 Encount er for screeni ng for cardiov ascular disorde rs HERMES MANE 03/14 [facility] Outpatient Encounter [id number] 03/15 [facility] [place] Outpatient Encounter [id number] ERNIE HARDEN 03/21 [facility] [place] Outpatient Encounter [id number] LONINE MOORE 03/21 [facility] FIT SPECTACLES MULTIFOCAL [id number] Diagnos is: ICD-10- CM Z46.0 Encount er for fit/adj st of spectac les and contact lenses AGUSTIN FERREIRA 03/27 [facility] Encounter [id number] 04/04 [facility] Out[facility] Encounter [id number] 04/10 [facility] Encounter [id number] 04/11 [facility] Out[facility] Encounter [id number] Emilee GOODWIN 04/15 [facility] Out[facility] Encounter [id number] 1. ERNIE HARDEN 04/22 [facility] Encounter [id number] 04/29 [facility] POS AIRWAY PRESSURE CPAP [id number] Diagnos is: ICD-10- CM G47.33 Obstruc tive sleep apnea (adult) (pediat sara) MODE BROOKS 05/03 [facility] OFFICE O/P EST MOD 30 MIN [id number] Diagnos is: ICD-10- CM F43.23 Adjustm ent disorde r with mixed anxiety and depress ed mood YESENIA NOBLE 05/10 [place] [facility] Out[facility] Encounter [id number] 05/11 [facility] Out[facility] Encounter [id number] 06/03 [facility] Outpatient Encounter [id number] ERNIE HARDEN 06/13 [facility] CASE MANAGEMENT [id number] TIFFANIE MONROE 06/13 [facility] Outpatient Encounter [id number] YOMI DONALDE L 06/14 [facility] [place] Outpatient Encounter [id number] YOMI DONALD LLE L 06/14 [facility] Out[facility] Encounter [id number] TAMEKA SALCIDO P 06/21 [facility] Outpatient Encounter [id number] 07/11 [facility] [place] [facility] OFFICE O/P EST LOW 20 MIN [id number] Diagnos is: ICD-10- CM F43.23 Adjustm ent disorde r with mixed anxiety and depress ed mood YESENIA NOBLE 08/09 [facility]P EST MOD 30 MIN [id number] Diagnos is: ICD-10- CM G47.33 Obstruc tive sleep apnea (adult) (pediat sara) LONNIE MOORE 08/16 [facility] Outpatient Encounter [id number] 08/28 [facility] [place] [facility] Outpatient Encounter [id number] NATHANIEL ESCOBAR 10/03 [facility] [place] [facility] [place] Outpatient Encounter [id number] NATHANIEL ESCOBAR 10/03 [facility] [place] [facility] (631GE) NQHP OL DIG ASSMT&MGMT 5-10 [id number] Diagnos is: ICD-10- CM F52.21 Male erectil e disorde r MARGARITA SARKAR N 10/03 [facility] (6[facility]GE[facility] Outpatient Encounter [id number] 10/03 [facility] [place] [facility] [place] [facility] Outpatient Encounter [id number] SHAWN,MI JETHRO Barajas 10/14 [facility] [place] [facility] [facility] Outpatient Encounter [id number] FINAERNIE 10/15 [place] [facility] [place] [facility] Social History Combined list of available smoking, tobacco, and other social history from Department of Defense and Veterans Affairs facilities. Social History Type Response Date Comment Source Tobacco smoking status NHIS MT-TOBACCO USER SOME DAYS [facility] History of tobacco use MT-TOBACCO DOESNT USE WI 30 MIN WAKEUP 06/22/2023 [facility] [place] [facility] History of tobacco use MT-TOBACCO NEVER USED 10/23/2020 [place] History of tobacco use MT-TOBACCO FORMER USER 09/12/2019 [place] History of tobacco use MT-TOBACCO USE > 15 LESS THAN 30 YEARS 09/24/2018 [place] History of tobacco use LIFETIME NON-TOBACCO USER 05/04/2017 [place] History of tobacco use LIFETIME NON-TOBACCO USER 05/31/2016 [place] History of tobacco use QUIT TOBACCO USE > 7 YEARS AGO 06/04/2015 [id number] smoked [place] History of tobacco use CURRENT SMOKER 05/11/2015 1 cigar qomonth [place] History of tobacco use QUIT TOBACCO USE > 7 YEARS AGO 07/06/2009 [facility] Plan of Care List of future care activities from Department of Veterans Affairs facilities. Additional future care activities may be listed in the Assessment and Plan section. Date/Time Care Activity Care Activity Detail Facili ty 11/08/2024 AMBULATORY - PSYCHIATRY AMBULATORY - PSYC [facility] Advance Directives List of completed, amended, or rescinded Advance Directives on record at Department of [facility] facilities. An actual copy of the Directive is not included. Date Advance Directive Provider Source 06/29/2023 ADVANCE DIRECTIVE JAMES GALLO [facility] 09/19/2017 ADVANCE DIRECTIVE DINA MCGINNIS [facility]
--- OUTSIDE RECORDS SUMMARY | 2024-10-17 08:04 | XMS_ITS | Encounter Summary ---
Author Name [place] Address [address] [place] [address] Care Team Providers Care Floor Technician Name Role Phone ARIEL JIMENEZ Primary Care [...] Parra's Name Patient's Relationship to Policy Parra [facility] Dec 19, 2015 [id number] [phone] [employer] PATIENT [facility] May 29, 2012 [id number] [employer] PATIENT [facility] May 29, 2023 [id number] [phone] [employer] SPOUSE [employer] [facility] May 29, 2023 [facility] [id number] [phone] [employer] SP[employer]SE Selected Encounter This section includes the information on record at [place] for the Encounter. Date/Time Encounter Type Encounter Description Reason Provider Source Mar 01, 2024 10:30 AM OFFICE O/P EST LOW 20 MIN SLEEP MEDICINE ICD-10-CM G47.33 Obstructive sleep apnea (adult) (pediatric) WESLEY MOORE IHSammy Encounter Template Text not used by [place] Assessments - Encounter Diagnoses This section includes the primary and secondary diagnoses documented for the Encounter. Date/Time Primary/Secondary Diagnosis Diagnosis Name Provider Source Mar 24, 2024 09:10 PM PRIMARY Obstructive sleep apnea (adult) (pediatric) CHRYSTAL FALCON RA [facility] Plan of Treatment: Future Appointments (+ 6 months) and Future Tests (+/- 45 days) The Plan of Treatment section includes future care activities for the patient from all [place] [facility] This section includes future appointments and future [...] 12, 2024 09:00 AM AMBULATORY - MEDICINE [facility] Mar 14, 2024 02:00 PM AMBULATORY - MEDICINE [facility] Mar 25, 2024 08:00 AM AMBULATORY - MEDICINE [facility] Mar 27, 2024 11:20 AM [facility] May 03, 2024 10:00 AM AMBULATORY - MEDICINE [facility] May 10, 2024 08:30 AM AMBULATORY - PSYCHIATRY [facility] Jul 11, 2024 10:30 AM [facility] Aug 09, 2024 09:00 AM AMBULATORY - PSYCHIATRY [facility] Aug 16, 2024 11:00 AM AMBULATORY - MEDICINE [facility] Lab Results: +/- 30 days of [...] Type Comment Mar 14, 2024 02:51 PM [facility] CBC AND DIFF (AUTO) BLOOD Specimen Type: BLOOD No comment entered. Ordering Provider: ARIEL JIMENEZ Report Released Date/Time: Mar 14, 2024 02:13 PM Reporting Lab: [facility] [address] [address] Performing Lab: [facility] [address] [address] WBC 6.17 10*3/uL 4.50-11.00 RBC 5.01 10*6/uL [...] 10*3/uL 0.00-0.00 Mar 14, 2024 02:50 PM [facility] HEMOGLOBIN A1C PANEL BLOOD Specimen Type: [...] September 27, 2023 10:28 AM Reporting Lab: [address] [address] Performing Lab: [address] [address] HEMOGLOBIN A1C 5.7 H 4.0-5.6 Mar 12, 2024 09:50 AM [facility] PT & INR (PROTIME) PLASMA Specimen Type: PLASM A No comment entered. Ordering Provider: ARIEL JIMENEZ Report Released Date/Time: Feb 23, 2024 11:30 AM Reporting Lab: [address] [address] Performing Lab: [address] [address] INR 0.9 PROTIME 10.7 s 10.0-13.1 Mar 12, 2024 09:50 AM [facility] LIPID PANEL, NON FASTING SERUM Specimen Type: SERUM No comment entered. Ordering Provider: ARIEL JIMENEZ Report Released Date/Time: Feb 23, 2024 09:53 AM Reporting Lab: [address] [address] Performing Lab: [address] [address] CHOLESTEROL 130 mg/dL TRIGLYCERIDE 89 mg/dL 0-150 LDL calculated 57 mg/dL 0-129 CHOL/HDL 2.4 HDL CHOLESTEROL 55 mg/dL 40-60 Mar 12, 2024 09:50 AM [facility] BASIC METABOLIC PANEL (non-fasting) SERUM Spe cimen Type: SERUM No comment entered. Ordering Provider: ARIEL JIMENEZ Report Released Date/Time: Feb 23, 2024 09:53 AM Reporting Lab: [facility] [address] [address] Performing Lab: [address] [address] UREA NITROGEN 26 mg/dL H 7-25 GLUCOSE 136 mg/dL H 65-100 SODIUM 141 mmol/L 135-145 POTASSIUM 4.7 mmol/L 3.5-5.0 CHLORIDE 104 mmol/L 100-110 CO2 27 meq/L 20-30 CREATININE, Serum 0.86 mg/dL 0.50-1.40 eGFR(CKD-EPI 2020) >90 mL/min >60 Mar 12, 2024 09:50 AM [facility] CBC BLOOD Specimen Type: BLOOD No comment entered. Ordering Provider: ARIEL JIMENEZ Report Released Date/Time: Feb 23, 2024 11:30 AM Reporting Lab: [address] [address] Performing Lab: [address] [address] WBC 4.94 10*3/uL 4.50-11.00 RBC 4.72 10*6/uL [...] 96.6 86 111/74 96 7 217.4 27 [facility] Advance Directives: All historical and current [...] Jun 29, 2023 ADVANCE DIRECTIVE CLEOJAMES [facility] Sep 19, 2017 ADVANCE DIRECTIVE RASDINA BC [facility] Encounter Notes: All associated encounter notes This section contains the clinical notes associated to the Encounter. 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
[2024-10-17 08:09] VITALS: BP 122/80; PULSE 71; O2SAT 98
== END 2024-10-17 10:10 | disposition home or self-care (01) ==
PROVIDERS: PCP Internal Medicine; Visit Provider Nurse Practitioner Family
DX: R21 Rash and other nonspecific skin eruption (principal)

== ENCOUNTER → 2024-10-17 08:01 | Outpatient (BNVA) | payer OTHER, SELFPAY | PROVIDERS: PCP Internal Medicine; Visit Provider Nurse Practitioner Family | DX: R21 Rash and other nonspecific skin eruption (principal) | CPT/HCPCS: 99212 ==